=== PATIENT | female | born 1950 | race Caucasian/White ===

== ENCOUNTER 2022-01-31 08:32 | Inpatient (IN) ==
--- NOTE | 2022-01-31 08:57 | Emergency Department Note ---
Impression & Plan Acute dehydration, Breast cancer, Pancytopenia, Adult failure to thrive ED Provider Note NAME: CINTHYA PURCELL AGE: 71 SEX: F : 1950 ARRIVES VIA: Walk-In INFORMANT: Patient, ED PROVIDER(S): Jose J Villegas MD Chief Complaint: Weakness, history of breast cancer, hematology oncology referral HPI: Patient is known history of breast CA and was referred by Dr. Morgan with hematology oncology. The patient's last chemotherapy was on has not received any radiation. The patient is complaining of some generalized weakness pain and has not been eating as much. The patient has had associated diarrhea. There has been talk about whether the patient would benefit from PEG tube and possible port. Patient reportedly has been unable to care for self at home and daughter is also unable to do so. The patient has had some worsening weight loss even in light of her chemotherapy. The patient has had some chronic discomfort in her bilateral elbows and hips. No recent falls or trauma. The patient did try to take tramadol 25 and then 50 but without significant improvement in symptoms. Patient is a smoker does not smoke in several days. The patient denies any alcohol use. The patient reportedly has localized Bretta of left-sided breast cancer stage III. Patient has met with a surgeon to disc uss possible surgical options as well. Patient denies any current chest pains or shortness of breath. The patient denies any nausea vomiting. The patient does have a rash to the face which she states is only uncomfortable if the scab is removed and raw underneath. Patient has not received any shingles vaccination in the past. ROS: See HPI for pertinent positives and negatives. A total of 10 systems were reviewed and otherwise negative. Past medical history: See below Surgical history: See below Social history: See below Physical Exam: GENERAL: Thin in appearance, wearing a mask EYE EXAM: Normal conjunctiva. PERRL, no anisocoria and EOM's grossly intact w/o pain. OROPHARYNX: Moist mucus membranes. Grossly normal dentition. NECK: Supple, no nuchal rigidity, no adenopathy, non-tender. No signs of meningismus. LUNGS: Clear to auscultation. Normal chest wall mechanics. HEART: Tachycardic and regular, no MRG. ABDOMEN: Abdomen soft, non-tender, normo-active bowel sounds, no masses, no rebound or guarding. BACK: No CVA TTP. SKIN: Eschar rash over the bilateral forehead and nose, scant amount right upper chest as well as dorsal aspect of bilateral proximal thumb area nontender and not vesicular in nature. UPPER EXTREMITIES: Upper extremities are grossly normal. Mild discomfort of the bilateral elbows without obvious overlying skin changes or swelling, compartments are soft and neurovascular intact distally. LOWER EXTREMITIES: Grossly normal, no edema. No discomfort to bilateral hips, decreased mobility of right hip compared to left but no overlying skin changes obvious deformity and neurovascular intact distally NEURO EXAM: A&O x3, cranial nerves II-XII grossly intact, normal speech, moves all 4 extremities but decreased right lower extremity movement secondary to d iscomfort Differential diagnoses: Infection, dehydration, metabolic abnormality, hypo/hyperglycemia, electrolyte disturbance, anemia, hypoxia, cardiac sources, intracerebral event, toxicologic, neurologic, as well as other pathologies. Course: Patient was seen and evaluated the bedside. Full history physical exam was performed. EKG interpreted by me Normal sinus rhythm, rate of 92, normal intervals, normal axis, no ST elevations Imaging Studies: See Below Cardiac monitoring: An order was placed for continuous cardiac monitoring. The monitor shows a rate of 102 with tachycardic and regular rhythm. MDM: Patient was seen and was noted to be hypotensive and tachycardic. The patient was covered with empiric antibiotics. The patient does have a rash which may be a more diffuse impetigo and believe less likely to be vesicular or zoster but still is a possibility given that she is on chemotherapy and has not had a Shingrix vaccine. Patient states it is not painful. Patient's blood work shows mild pancytopenia. The patient does have significant prerenal azotemia and was given IV fluids. Pro-Gerhard slightly elevated 1.1 negative COVID. Chest x-ray is clear. Patient had refused some imaging of hips/pelvis as the patient had a recent PET scan on Saturday. I did speak the on-call hospitalist Dr. Grace and the patient was admitted to the medicine service. Past Med/Surg History Medical History (Updated 01/31/22 @ 12:18 by Jose J Villegas MD) Breast cancer Hypertension Social History Smoking Status: Current some day smoker Tobacco Type: Cigarettes Preferred Language: French Feels Safe at Home: Yes Allergies Allergies Allergy/AdvReac Type Severity Reaction Status Date / Time pistachio nut AdvReac Severe Red face Unverified 01/31/22 10:37 and hands ~ Throwing up Home Meds Home Medications Medication Instructions Recorded Confirmed diltiazem HCl 120 mg tablet 120 mg PO BID 01/31/22 01/31/22 lisinopril 20 1 tab PO QAM 01/31/22 01/31/22 mg-hydrochlorothiazide 25 mg tablet methylprednisolone 4 mg tablets in 4 mg PO .TAPER DOSE 01/31/22 01/31/22 a dose pack mirtazapine 15 mg tablet 15 mg PO QAM 01/31/22 01/31/22 ondansetron HCl 8 mg tablet 8 mg PO Q8H PRN 01/31/22 01/31/22 prochlorperazine maleate 10 mg 10 mg PO Q6H PRN 01/31/22 01/31/22 tablet tramadol 50 mg tablet 50 mg PO Q6H PRN 01/31/22 01/31/22 Results & Data (ED) Vital Signs Vital Signs - 24 hr 01/31/22 08:48 01/31/22 09:59 01/31/22 10:00 Temperature 36.3 C L Temperature Source Temporal Artery Scan Pulse Rate 104 H 93 H 93 H Pulse Rate from SpO2 Sensor 86 93 H Respiratory Rate 20 17 17 Respiratory Effort / Characteristics Non-Labored Respiratory Depth Normal Respiratory Pattern Regular Blood Pressure 76/55 L 110/78 Blood Pressure Mean 62 88 Pulse Oximetry 96 96 96 Oxygen Delivery Method Room Air Room Air Sepsis Recent Fever Within 48 Hours No Sepsis New/Unexplained Change in Mental Status No Sepsis Action Taken by Nursing Physician Notified 01/31/22 10:04 01/31/22 10:24 01/31/22 10:30 Temperature Temperature Source Pulse Rate 87 91 H Pulse Rate from SpO2 Sensor 87 91 H Respiratory Rate 18 20 22 Respiratory Effort / Characteristics Non-Labored Non-Labored Respiratory Depth Respiratory Pattern Blood Pressure 117/60 119/62 Blood Pressure Mean 79 81 Pulse Oximetry 98 95 Oxygen Delivery Method Room Air Room Air Sepsis Recent Fever Within 48 Hours Sepsis New/Unexplained Change in Mental Status Sepsis Action Taken by Nursing 01/31/22 10:45 01/31/22 11:00 01/31/22 11:15 Temperature Temperature Source Pulse Rate 87 86 87 Pulse Rate from SpO2 Sensor 87 86 87 Respiratory Rate 14 16 13 Respiratory Effort / Characteristics Non-Labored Respiratory Depth Respiratory Pattern Blood Pressure 113/58 L 115/67 114/66 Blood Pressure Mean 76 83 82 Pulse Oximetry 95 98 96 Oxygen Delivery Method Room Air Room Air Room Air Sepsis Recent Fever Within 48 Hours Sepsis New/Unexplained Change in Mental Status Sepsis Action Taken by Nursing 01/31/22 11:30 01/31/22 11:45 01/31/22 12:00 Temperature Temperature Source Pulse Rate 88 89 94 H Pulse Rate from SpO2 Sensor 88 89 94 H Respiratory Rate 19 15 19 Respiratory Effort / Characteristics Non-Labored Non-Labored Respiratory Depth Respiratory Pattern Blood Pressure 122/67 122/69 123/70 Blood Pressure Mean 85 86 87 Pulse Oximetry 96 97 97 Oxygen Delivery Method Room Air Room Air Room Air Sepsis Recent Fever Within 48 Hours Sepsis New/Unexplained Change in Mental Status Sepsis Action Taken by [facility] Medications Current Medication List: was personally reviewed by me Laboratory Data Attestation: I reviewed the patient's lab results. Result diagrams: 01/31/22 09:40 01/31/22 09:40 Lab Results 01/31/22 01/31/22 01/31/22 Range/Units 09:40 09:40 09:40 WBC 3.55 L (4.8-10.8) K/uL RBC 3.21 L (4.2-5.4) M/uL Hgb 10.2 L (12.0-16.0) g/dL Hct 30.6 L (37-47) % MCV 95.3 (80-100) fL MCH 31.8 (25-34) pg MCHC 33.3 (32-36) g/dL RDW Std Deviation 43.3 (36.4-46.3) fL RDW Coeff of Emil 12.4 (11.5-14.5) % Plt Count 123 L (130-400) K/uL MPV 13.1 H (7.4-10.4) fL Neutrophils % (Manual) 67.8 % Lymphocytes % (Manual) 12.2 % Monocytes % (Manual) 17.4 % Eosinophils % (Manual) 1.7 % Basophils % (Manual) 0.9 % Neutrophils # (Manual) 2.41 (1.4-6.5) K/uL Total Absolute Neuts 2.41 (1.4-6.5) K/uL Lymphocytes # (Manual) 0.43 L (1.2-3.4) K/uL Total Abs Lymphocytes 0.43 L (1.2-3.4) K/uL Monocytes # (Manual) 0.62 H (0.11-0.59) K/uL Eosinophils # (Manual) 0.06 (0-0.5) K/uL Basophils # (Manual) 0.03 (0-0.2) K/uL Platelet Estimate Normal (Normal) PT 9.8 (9.0-12.0) Seconds INR 0.9 (0.9-1.1) APTT 23.9 (21.0-31.0) Seconds PTT Ratio 0.9 Sodium 132 L (136-145) mmol/L Potassium 3.9 (3.5-5.1) mmol/L Chloride 98 (98-107) mmol/L Carbon Dioxide 26 (21-32) mmol/L Anion Gap 8 (3-11) BUN 67 H (6-23) mg/dl Creatinine 1.35 H (0.6-1.2) mg/dl Est Cr Clr Drug Dosing 22.7 ml/min Est GFR ( Amer) 45.0 ml/min Est GFR (Non-Af Amer) 38.9 ml/min BUN/Creatinine Ratio 49.6 H (10-20) Glucose 93 (70-99(Fasting)) mg/dl Lactate (0.4-2.0) mmol/L Calcium 8.7 (8.5-10.1) mg/dl Magnesium 2.0 (1.7-2.4) mg/dl Total Bilirubin 0.5 (0.2-1.0) mg/dl AST 114 H (13-39) U/L ALT 32 (7-52) U/L Alkaline Phosphatase 68 (34-104) U/L Total Protein 6.6 (6.0-8.3) gm/dl Albumin 3.1 L (3.4-5.0) gm/dl Globulin 3.5 (2.5-4.0) gm/dl Albumin/Globulin Ratio 0.9 (0.9-2) Procalcitonin (0-0.5) ng/ml SARS-CoV-2, RNA, NAAT (NEGATIVE) 05/11/22 05/11/22 05/11/22 Range/Units 09:40 10:20 10:21 WBC (4.8-10.8) K/uL RBC (4.2-5.4) M/uL Hgb (12.0-16.0) g/dL Hct (37-47) % MCV (80-100) fL MCH (25-34) pg MCHC (32-36) g/dL RDW Std Deviation (36.4-46.3) fL RDW Coeff of Emil (11.5-14.5) % Plt Count (130-400) K/uL MPV (7.4-10.4) fL Neutrophils % (Manual) % Lymphocytes % (Manual) % Monocytes % (Manual) % Eosinophils % (Manual) % Basophils % (Manual) % Neutrophils # (Manual) (1.4-6.5) K/uL Total Absolute Neuts (1.4-6.5) K/uL Lymphocytes # (Manual) (1.2-3.4) K/uL Total Abs Lymphocytes (1.2-3.4) K/uL Monocytes # (Manual) (0.11-0.59) K/uL Eosinophils # (Manual) (0-0.5) K/uL Basophils # (Manual) (0-0.2) K/uL Platelet Estimate (Normal) PT (9.0-12.0) Seconds INR (0.9-1.1) APTT (21.0-31.0) Seconds PTT Ratio Sodium (136-145) mmol/L Potassium (3.5-5.1) mmol/L Chloride (98-107) mmol/L Carbon Dioxide (21-32) mmol/L Anion Gap (3-11) BUN (6-23) mg/dl Creatinine (0.6-1.2) mg/dl Est Cr Clr Drug Dosing ml/min Est GFR ( Amer) ml/min Est GFR (Non-Af Amer) ml/min BUN/Creatinine Ratio (10-20) Glucose (70-99(Fasting)) mg/dl Lactate 1.5 (0.4-2.0) mmol/L Calcium (8.5-10.1) mg/dl Magnesium (1.7-2.4) mg/dl Total Bilirubin (0.2-1.0) mg/dl AST (13-39) U/L ALT (7-52) U/L Alkaline Phosphatase (34-104) U/L Total Protein (6.0-8.3) gm/dl Albumin (3.4-5.0) gm/dl Globulin (2.5-4.0) gm/dl Albumin/Globulin Ratio (0.9-2) Procalcitonin 1.10 H (0-0.5) ng/ml SARS-CoV-2, RNA, NAAT NEGATIVE (NEGATIVE) Administered Medications Discontinued Medications Sodium Chloride (Nss 1000ml) 1,000 mls @ 999 mls/hr IV .Q1H1M KULWANT Stop: 01/31/22 10:05 Last Infusion: 01/31/22 11:06 Dose: 0 mls/hr Documented by: [id number] Admin: 01/31/22 09:55 Dose: 999 mls/hr Documented by: [id number] Sodium Chloride (Nss 1000ml) 1,000 mls @ 999 mls/hr IV .Q1H1M KULWANT Stop: 01/31/22 11:15 Last Infusion: 01/31/22 11:05 Dose: 0 mls/hr Documented by: [id number] Admin: 01/31/22 10:19 Dose: 999 mls/hr Documented by: [id number] Cefepime HCl (Maxipime) 2,000 mg in 20 mls @ 5 mls/min IV NOW STA; Protocol Stop: 01/31/22 09:08 Last Admin: 01/31/22 09:56 Dose: 5 mls/min Documented by: [id number] Miscellaneous (Patient's Height And/Or Weight Needed) 1 ea N/A Q20M KULWANT Stop: 03/02/22 09:29 Last Admin: 01/31/22 10:18 Dose: 1 ea Documented by: [id number] Morphine Sulfate (Morphine Sulfate 2 Mg/Ml Carp) 2 mg IV NOW STA Stop: 01/31/22 09:24 Last Admin: 01/31/22 09:52 Dose: 2 mg Documented by: [id number] Imaging Data Radiologist's Impression: Chest X-Ray 01/31/22 09:05 XR chest 1V portable CLINICAL HISTORY: SEPSIS TECHNIQUE: Single frontal radiograph of the chest was obtained. Comparison: None available at the time of this dictation. FINDINGS: No lines and tubes are seen. The cardiomediastinal silhouette is normal. The lungs are clear. No evidence of pleural effusion or pneumothorax. IMPRESSION: No acute chest disease. ACT 112: Negative or not required by law. Electronically signed by: Benoit Fry M.D. 01/31/2022 9:50 AM Discharge Plan Visit Data Chief Complaint: Illness Stated Complaint: UNDERGOING CHEMO/AND ACHES ALL OVER ED Provider: Jose J Villegas Discharge Problem: Acute dehydration, Breast cancer, Pancytopenia, Adult failure to thrive Patient Disposition: Admitted As Inpatient Forms Stand Alone Forms: [facility] Prescriptions Prescriptions: No Action ondansetron HCl 8 mg tablet 8 mg PO Q8H PRN (Reason: Nausea) RF: 0 prochlorperazine maleate 10 mg tablet 10 mg PO Q6H PRN (Reason: Nausea) RF: 0 tramadol 50 mg tablet 50 mg PO Q6H PRN (Reason: Pain) RF: 0 diltiazem HCl 120 mg tablet 120 mg PO BID RF: 0 lisinopril-hydrochlorothiazide 20-25 mg tablet 1 tab PO QAM RF: 0 mirtazapine 15 mg tablet 15 mg PO QAM RF: 0 methylprednisolone 4 mg tablets,dose pack 4 mg PO .TAPER DOSE RF: 0 Referrals Referrals: Laurel Dougherty MD [Physician] -
[2022-01-31] MEDS ORDERED: CEFEPIME 2,000 MG/20 ML VIAL IV STA (09:05)
[2022-01-31] MEDS ORDERED: SODIUM CHLORIDE 0.9% 1000ML 1,000 ML IV SCH ×2 (09:15→10:15)
[2022-01-31] MEDS ORDERED: MoRPHine SULFATE 2 MG/ML CARP IV STA (09:23)
--- NOTE | 2022-01-31 09:51 | XRay Report ---
XR chest 1V portable CLINICAL HISTORY: SEPSIS TECHNIQUE: Single frontal radiograph of the chest was obtained. Comparison: None available at the time of this dictation. FINDINGS: No lines and tubes are seen. The cardiomediastinal silhouette is normal. The lungs are clear. No evid ence of pleural effusion or pneumothorax. IMPRESSION: No acute chest disease. ACT 112: Negative or not required by law. Electronically signed by: Benoit Fry M.D. 01/31/2022 9:50 AM
[2022-01-31 10:12] LABS: INR 0.9 (0.9-1.1); Partial Thromboplastin Ratio 0.9; Partial Thromboplastin Time 23.9 Seconds (21.0-31.0); Prothrombin Time 9.8 Seconds (9.0-12.0)
[2022-01-31] MEDS: Patient's HEIGHT &/or WEIGHT Needed SCH ×3 (10:18→15:28)
[2022-01-31 10:22] LABS: Albumin Globulin Ratio 0.9 (0.9-2); Albumin Level 3.1 gm/dl (3.4-5.0); BUN Creatinine Ratio 49.6 (10-20); Bilirubin,Total 0.5 mg/dl (0.2-1.0); Calcium 8.7 mg/dl (8.5-10.1); Creatinine Clr Calc Pharmacy 22.7 ml/min; Est GFR (Non-African American) 38.9 ml/min; Globulin 3.5 gm/dl (2.5-4.0); Potassium 3.9 mmol/L (3.5-5.1); Total Protein 6.6 gm/dl (6.0-8.3)
[2022-01-31 10:55] LABS: ALC (manual) 0.43 K/uL (1.2-3.4); ANC (manual) 2.41 K/uL (1.4-6.5); Basophils # (manual) 0.03 K/uL (0-0.2); Basophils % (manual) 0.9 %; Eosinophils # (manual) 0.06 K/uL (0-0.5); Eosinophils % (manual) 1.7 %; Hematocrit (blood only) 30.6 % (37-47); Hemoglobin 10.2 g/dL (12.0-16.0); Lymphocytes # (manual) 0.43 K/uL (1.2-3.4); Lymphocytes % (manual) 12.2 %; Mean Corpuscular Hemoglobin 31.8 pg (25-34); Mean Corpuscular Hgb Conc 33.3 g/dL (32-36); Mean Corpuscular Volume 95.3 fL (80-100); Mean Platelet Volume 13.1 fL (7.4-10.4); Monocytes # (manual) 0.62 K/uL (0.11-0.59); Monocytes % (manual) 17.4 %; Neutrophils # (manual) 2.41 K/uL (1.4-6.5); Neutrophils % (manual) 67.8 %; Platelet Count 123 K/uL (130-400); Platelet Estimate Normal (Normal); RDW Coefficient of Variation 12.4 % (11.5-14.5); RDW Standard Deviation 43.3 fL (36.4-46.3); Red Blood Count 3.21 M/uL (4.2-5.4); White Blood Count 3.55 K/uL (4.8-10.8)
--- NOTE | 2022-01-31 11:50 | History & Physical Report ---
Date of Service January 31, 2022 Assessment & Plan (1) UGI bleed: Plan: - Suspected. BUN increased to 67, was 50 on 01/24. With reports of black, tarry stools over the past few days. Hgb 10.2, was 11.6 on 01/24. - FOB ordered, if positive will start on IV Protonix and consult GI. - Trend H&H. - Will hold methylprednisolone. (2) Adult failure to thrive: Plan: - Global weakness, fatigue, loss of appetite, suspect this is due to cancer, recent chemotherapy. - No obvious source of infection, however procalcitonin 1.10, she was mildly tachycardic on presentation. Was given a dose of cefepime in ED. Blood cultures sent, urinalysis ordered, not yet collected. - Has discussed with oncology the potential for a PEG placement, will consult GI for this. Also consulting general surgery for port placement, as patient was supposed to have a consult for this yesterday. - Continue IVF. - Dietitian consulted, appreciate their recommendations. (3) Facial rash: Plan: - Developed several days after first chemotherapy treatment. Involves bilateral forehead, nasolabial folds, around mouth. Is not pruritic, purulent, or painful. Some areas are consistent with impetigo. Not causing any ocular or auditory issues. No purulent drainage. Lesions are already crusted over after rash been present for 3 days which makes it less suspicious for herpetic etiology, however patient has not had Shingrix vaccine. Consider covering prophylactically with acyclovir? - Consulted Dr. Morgan with oncology for evaluation. (4) Elevated AST (SGOT): Plan: - AST 114, trending up since 01/11. ALT within normal limits, but also trending up since 01/11. T bili 0.5, alk phos 68. - Patient is not having any abdominal pain. PET scan did not show any metastatic disease to liver. - For now, continue to follow on a.m. CMP. (5) Hyponatremia: Plan: - 132, chronic since 01/11 - Suspect may be due to decreased po intake, diarrhea vs SIADH induced by cancer, chemotherapy. - Received 2L IVF in ED. Will continue to receive LRs @ 80 cc/hr. - Continue to follow on BMP in AM. (6) Pancytopenia: Plan: - In setting of chemo on 01/25, labs normocytic prior to. Reportedly received Neulasta following chemo. - Continue to follow on daily CBC. (7) Breast cancer: Plan: - Diagnosed on diagnostic mammogram 1 month ago. - Chemo regimen: Docetaxel, carboplatin, trastuzumab, pertuzumab [id number] x6 cycles possibly followed up with surgery. - First chemo was 01/25 - PET/brain MRI for full staging on 01/24, revealed 2 left breast masses, axiliary and L internal mammary lymph node involvement, no metastatic dz to abdomen or pelvis, 6 mm ground glass RLL nodule indeterminant, not suspected to be met dz. Marinol for appetite stimulation - Echo 01/24--> EF 60-65%, small pericardial effusion - Dr. Morgan consulted as above. - Also consult general surgery as patient was to have consult for port placement this week. (8) Hypertension: Plan: - On diltiazem and lisinopril/HCTZ, will hold these for today due to hypovo lemia, hyponatremia. - Continue to monitor BP. (9) CKD (chronic kidney disease) stage 3, GFR 30-59 ml/min: Plan: - BUN 67 increased from presumed baseline on 01/11 with creatinine 1.35, at presumed baseline (no other labs for comparison). - Renally dose medications as able, avoid nephrotoxic agents. - Follow on daily BMP. Plan: - Admit to med/surg. - SCDs for DVT ppx, hold on chemoppx until GI bleed is ruled out. - DNR/DNI. History of Present Illness Chief Complaint: increasing weakness x 5 days Primary Care Provider: NO PCP Ms. Benson is a 71 y/o female with a PMH significant for stage III left sided breast cancer diagnosed 1 month ago and HTN who presents upon referral of her oncologist due to generalized weakness. Patient received her first chemotherapy treatment this past , 01/25 as well as Neulasta. In the days preceding this, she became increasingly weak, achy all over, facial rash, and developed diarrhea. Prior to starting chemo, she has had generalized body aches, primarily in her bilateral elbows and hips, however they have become worse in the days after her chemo. She has not had any recent falls or injuries. The rash and diarrhea started 3 days ago, 01/28. The rash started around her nose and lips bilaterally and has spread to her forehead. It is not itchy or painful. No visual changes or eye pain, no hearing changes. She describes her diarrhea it as tarry, occurring 5 times/day. She does not notice any pedro red blood in it and her BMs are not painful. She also endorses decreased appetite despite beign prescribed marinol for this. She is occasionally nauseous. She denies fever/chills, night sweats, chest pain, palpitations, shortness of breath, cough, abdominal pain, vomiting constipation, hematochezia, dysuria, hematuria, increased urinary frequency. She was supposed to have a consult this morning with Dr. Fox for port placement, however daughter canceled this yesterday as patient has been too weak to leave the house. Per daughter, there has also been conversations with oncology about potential PEG placement. In ED, VSS, wnl. Labs significant for pancytopenia ( WBC 3.55, RBC 3.21, PLT 123 ), Hgb 1.2, Na 132, BUN 67, Cr 1.32, AST 114. Lactate 1.5, pct 1.10. Blood cultures pending. CXR without evidence of acute disease. UA ordered, not yet collected. Allergies Allergy/AdvReac Type Severity Reaction Status Date / Time pistachio nut AdvReac Severe Red face Unverified 01/31/22 10:37 and hands ~ Throwing up Home Medications Medication Instructions Recorded Confirmed Type diltiazem HCl 120 mg tablet 120 mg PO BID 01/31/22 01/31/22 History lisinopril 20 1 tab PO QAM 01/31/22 01/31/22 History mg-hydrochlorothiazide 25 mg tablet methylprednisolone 4 mg tablets in 4 mg PO .TAPER DOSE 01/31/22 01/31/22 History a dose pack mirtazapine 15 mg tablet 15 mg PO QAM 01/31/22 01/31/22 History ondansetron HCl 8 mg tablet 8 mg PO Q8H PRN 01/31/22 01/31/22 History prochlorperazine maleate 10 mg 10 mg PO Q6H PRN 01/31/22 01/31/22 History tablet tramadol 50 mg tablet 50 mg PO Q6H PRN 01/31/22 01/31/22 History Past Med/Surg History Medical History Breast cancer Hypertension Social History Smoking Status: Current some day smoker Tobacco Type: Cigarettes Hx Alcohol Use: Yes Alcohol type: hard liquor Hx Substance Use: No Preferred Language: [place] Communication Ability: Effective 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 Beliefs That Will Affect Care: None Current Living Situation: Family Other Information That Helps Us Care for You: No Feels Safe at Home: Yes Assistive Devices: None and Denture - Upper Review of Systems Review of Systems: Constitutional: Increased weakness, myalgias, anorexia, fatigue over past 5 days; No fever/chills, night sweats Eyes: No diplopia, no worsening or blurred vision ENT: normal hearing, no trouble swallowing Respiratory: No cough, sputum, dyspnea at rest or on exertion Cardiovascular: No chest pain, tightness or palpitations Abdomen: Some nausea x 5 days, tarry diarrhea x 3 days; No pain, vomiting, constipation : Denies dysuria, hematuria, increased urgency/frequency, urinary retention Musculoskeletal: Overall body aches, worst at b/l elbows, hips; No calf pain, swelling Neurologic: No focal weakness, numbness/tingling, or balance problems Psychiatric: No anxiety or depression Skin: b/l facial rash x 3 days; no itch Physical Exam Physical Exam: General: awake, alert, no apparent distress, appears frail, cachectic. Head: Normocephalic, atraumatic ENT: PERRL, EOMI, no pharyngeal exudate, mucous membranes moist Chest: Clear to auscultation, on room air, no adventitious breath sounds Cardiac: Regular rate and rhythm, no murmur, no JVD, normal peripheral pulses, good capillary refill Abdominal: NABS x 4 quadrants, soft, nontender to palpation, no rebound, guarding or tenderness Extremities: Normal inspection, no peripheral edema or erythema, calfs nontender to palpation Psych: Normal mood and affect Neuro: AAO x 3, strength intact bilaterally and rated 5/5, no motor deficits, speech is clear, no peripheral sensory deficits Skin: erythematous, scaly, no pruritic rash with some scabbing on b/l forehead, b/l nasolabial folds and around mouth Results & Data Results & Data ([facility]) Vital Signs (Past 12 Hours) Vital Signs Temp Pulse Resp BP Pulse Ox 01/31/22 11:00 86 16 115/67 98 01/31/22 10:45 87 14 113/58 L 95 01/31/22 10:30 91 H 22 119/62 95 01/31/22 10:24 87 20 117/60 98 01/31/22 10:04 18 01/31/22 10:00 93 H 17 110/78 96 01/31/22 09:59 93 H 17 96 01/31/22 08:48 36.3 C L 104 H 20 76/55 L 96 Laboratory Results Abnormal lab results 01/31/22 01/31/22 01/31/22 Range/Units 09:40 09:40 10:20 WBC 3.55 L (4.8-10.8) K/uL RBC 3.21 L (4.2-5.4) M/uL Hgb 10.2 L (12.0-16.0) g/dL Hct 30.6 L (37-47) % Plt Count 123 L (130-400) K/uL MPV 13.1 H (7.4-10.4) fL Lymphocytes # (Manual) 0.43 L (1.2-3.4) K/uL Total Abs Lymphocytes 0.43 L (1.2-3.4) K/uL Monocytes # (Manual) 0.62 H (0.11-0.59) K/uL Sodium 132 L (136-145) mmol/L BUN 67 H (6-23) mg/dl Creatinine 1.35 H (0.6-1.2) mg/dl BUN/Creatinine Ratio 49.6 H (10-20) AST 114 H (13-39) U/L Albumin 3.1 L (3.4-5.0) gm/dl Procalcitonin 1.10 H (0-0.5) ng/ml Diagnostic Findings Chest X-Ray 01/31/22 09:05 XR chest 1V portable CLINICAL HISTORY: SEPSIS TECHNIQUE: Single frontal radiograph of the chest was obtained. Comparison: None available at the time of this dictation. FINDINGS: No lines and tubes are seen. The cardiomediastinal silhouette is normal. The lungs are clear. No evidence of pleural effusion or pneumothorax. IMPRESSION: No acute chest disease. ACT 112: Negative or not required by law. Electronically signed by: Benoit Fry M.D. 01/31/2022 9:50 AM ECG Additional Comments: Normal sinus rhythm Possible Left atrial enlargement Low voltage QRS Cannot rule out Anteroseptal infarct , age undetermined Abnormal ECG When compared with ECG of 13-MAY-2000 14:03, Questionable change in QRS duration Minimal criteria for Anteroseptal infarct are now Present. Code Status & VTE Plan Code Status DNR/DNI. Supervising Physician Co-Signing Physician Notes Patient seen and examined, chart reviewed, case discussed with Sis Layne and I agree with the assessment and plan as above except as otherwise noted above. General: A&Ox3. Cooperative. Frail. HEENT: Atraumatic, normocephalic. PERLAA, EoM intact. Vision/hearing grossly intact Pulm: CTAB A&P. -wheezes, -rales, -rhonchi. Symmetrical chest rise. No increase work of breathing. No respiratory distress. Cardiac: RRR, -mrg. Radial pulses intact and symmetrical. Abdominal: Nontender, nondistended, soft. BS present. Skin: Diffuse, nonpruritic, nontender eschar on RIGHT akash, bilateral NLF, perioral space with minimal erythema and no vesicles. All labs and images reviewed 71-year-old female undergoing chemotherapy who presents with generalized weakness. Had first chemo 6 days ago. Sodium 132, potassium normal, creatinine at baseline, lactate normal, BSG normal. Has developed a facial rash for 3 days which did not occur with vesicles, which is not tender or pruritic. Does not follow single dermatome and is crusted without vesicles, will defer acyclovir at this time. No yellow crust, appears to be improving ?Chemo reaction versus superficial infection, Pro-Gerhard is elevated in the setting of renal dysfunction. +cephlex. Pt does feel globally wiped out/fatigued. Hemoglobin down trended with report of tarry melena, positive FOBT and acutely elevated BUN, PPI started, H&H trended, GI consulted as above. PG Care Time/CCT Total # of Minutes Spent Total Time Spent with Patient: Total time spent is greater than 50% in coordination of care (as documented) at patient's floor/unit and/or counseling patient: Coding Level of Care Code 69347 Initial Inpt Care Lvl 3 Diagnoses Hypertension I10 Hypertension type: primary hypertension Pancytopenia D61.818 Hyponatremia E87.1 Breast cancer C50.919 Patient sex: female CKD (chronic kidney disease) stage 3, GFR 30-59 ml/min N18.30 Facial rash R21 Elevated AST (SGOT) R74.01 UGI bleed K92.2 Adult failure to thrive R62.7 (1) Breast cancer Patient sex: female (2) Hypertension Hypertension type: primary hypertension Qualified Code(s): I10 - Essential (primary) hypertension
[2022-01-31] MEDS ORDERED: ONDANSETRON INJ 2 MG/ML 2 ML VIAL ONE (12:20)
[2022-01-31] MEDS ORDERED: PROCHLORPERAZINE MALEATE 10 MG TAB PO PRN (14:35)
[2022-01-31] MEDS ORDERED: ACETAMINOPHEN 325 MG TAB PO PRN (14:35)
[2022-01-31] MEDS ORDERED: HYDROmorphone INJ 0.5 MG/0.5 ML SYR IV PRN (14:35)
[2022-01-31] MEDS ORDERED: traMADol HCL 50 MG TABLET PO PRN (14:35)
[2022-01-31] MEDS ORDERED: PROMETHAZINE HCL 12.5 MG in SODIUM CHLORIDE 0.9% 50 ML IV PRN (14:35)
[2022-01-31] MEDS ORDERED: NON-FORMULARY MEDICATION (Ondansetron Hcl 8 mg tablet) PO PRN (14:35)
[2022-01-31] MEDS ORDERED: ONDANSETRON INJ 2 MG/ML 2 ML VIAL IV PRN (14:35)
[2022-01-31] MEDS ORDERED: POLYETHYLENE (MIRALAX) 17 GM PACK PO PRN (14:35)
--- NOTE | 2022-01-31 15:06 | Surgery Consultation ---
Date of Consultation January 31, 2022 Assessment & Plan (1) Breast cancer: (2) Pancytopenia: (3) UGI bleed: suspected due to history of dark/black stools however Hemoccult testing has not been completed yet Hemoglobin 11.3 prior to chemo, 10.2 today (4) Adult failure to thrive: 71 year-old female with stage III left breast cancer who presented to ED with increasing weakness, diarrhea, and rash on face after initiation of first round of chemotherapy on 01/25/22. Found to be pancytopenic in ED with suspicion for UGI bleed due to dark/black stools however Hemoccult pending. Blood cultures pending. Plan: Will need to ensure no active GI bleeding and negative blood cultures prior to insertion of aport catheter. Given the significant failure to thrive, she may benefit from placement of PEG tube for nutritional support first. Will consult gastroenterology for this. She also has generalized pain that has not been addressed or managed. Believe she would benefit from pain management consultation to help get her pain better controlled so that she is able to stay active and possibly increase her nutritional intake. Oncology consulted, there likely will need to be a discussion with patient if she would tolerate another round of chemotherapy. Will tentatively add her to OR schedule for Saturday morning for port placement once the above testing is completed and blood cultures negative. would recommend adding BOOST BID will continue to follow Dr. Nur has seen patient and discussed above with patient and her daughter. Supervising Physician Co-Signing Physician Notes I have seen and examined the patient personally, and agree with the above assessment and plan as well as physical exam. In brief, she has locally advanced left breast cancer who presented with failure to thrive following her first chemotherapy treatment. She was admitted for PEG tube placement and access port placement. There is question as to whether she has an upper GI bleed due to dark tarry stools/melena. We would recommend gastroenterology consult for upper endoscopy and possible PEG tube placement. I had a discussion with him concerning an access port placement. The access port placement could potentially be done during this hospitalization, depending on what is found during the GI evaluation. We will plan for the access port placement sometime early next week. We will continue to follow. History of Present Illness Reason for Consultation: aport placement Requesting Physician: Sis Barrett PA-C Attending Physician: Refugio Grace MD History of Present Illness Hayley is a 71 year-old female with stage III left breast cancer metastatic to left axillary lymph nodes who started first round of chemotherpy last 01/25/22 who presented to emergency department due to increasing weakness, rash on face, and diarrhea. She was found to be pancytopenic in the emergency department with elevated procalcitonin and dark/maroon stools. Hemoglobin 10.2 (11.3 prior to chemotherapy) She was supposed to see Dr. Fox this week for consult for port placement for chemotherapy and there was also discussion for PEG tube placement by Oncology. Our services consulted for aport placement. Blood cultures are pending. Daughter present in room and gives most of history. Hayley was very tired (Given 2 mg of Morphine in ED) and resting in bed. Daughter states that she contacted Dr. Morgan last evening and she recommending bringing her mother to the ED due to the severe weakness and malnutrition for further management as well as possible PEG tube and port placement. Daughter states that she has noticed dark black stools but says this is possible side effect of chemo and only started this Saturday. States she has constant pain and she mostly sleeps and rests and is not eating very well and very malnourished and weak. She is concerned she will not be able to get her mother into office for outpatient consult for port placement prior to her next chemotherapy treatment. States her mother wants to fight this and wants to do everything possible. Allergies Allergy/AdvReac Type Severity Reaction Status Date / Time pistachio nut AdvReac Severe Red face Unverified 01/31/22 10:37 and hands ~ Throwing up Home Medications Medication Instructions Recorded Confirmed Type diltiazem HCl 120 mg tablet 120 mg PO BID 01/31/22 01/31/22 History lisinopril 20 1 tab PO QAM 01/31/22 01/31/22 History mg-hydrochlorothiazide 25 mg tablet methylprednisolone 4 mg tablets in 4 mg PO .TAPER DOSE 01/31/22 01/31/22 History a dose pack mirtazapine 15 mg tablet 15 mg PO QAM 01/31/22 01/31/22 History ondansetron HCl 8 mg tablet 8 mg PO Q8H PRN 01/31/22 01/31/22 History prochlorperazine maleate 10 mg 10 mg PO Q6H PRN 01/31/22 01/31/22 History tablet tramadol 50 mg tablet 50 mg PO Q6H PRN 01/31/22 01/31/22 History Patient History Medical History Breast cancer Hypertension Social History Smoking Status: Current some day smoker Tobacco Type: Cigarettes Hx Alcohol Use: Yes Alcohol type: hard liquor Hx Substance Use: No Preferred Language: Citizen Of [place] Communication Ability: Effective 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 Beliefs That Will Affect Care: None marital status: / Current Living Situation: Family How many Children do You have: 1 Other Information That Helps Us Care for You: No Feels Safe at Home: Yes Assistive Devices: Assistive Devices Comment: shower bench Physical Exam Constitutional: + thin, + cachectic, + frail appearing, cooperative and + lethargic; no acute distress and not in distress Neck: normal visual inspection and trachea midline Respiratory: normal respiratory effort; no respiratory distress and no labored breathing Skin: + rash (of the face ) Psychiatric: Orientation: alert and oriented x 3 Affect: + depressed affect Results & Data ([facility]) Vital Signs (Past 12 Hours) Vital Signs Temp Pulse Pulse Resp BP BP Pulse Ox 01/31/22 14:40 36.9 C 80 16 121/59 L 96 01/31/22 14:39 93 H 20 149/65 H 99 01/31/22 13:15 93 H 20 149/65 H 99 01/31/22 13:00 90 18 135/65 99 01/31/22 12:45 92 H 19 140/78 99 01/31/22 12:31 91 H 21 129/85 99 01/31/22 12:30 18 98 01/31/22 12:15 92 H 20 121/97 96 01/31/22 12:00 94 H 19 123/70 97 01/31/22 11:45 89 15 122/69 97 01/31/22 11:30 88 19 122/67 96 01/31/22 11:15 87 13 114/66 96 01/31/22 11:00 86 16 115/67 98 01/31/22 10:45 87 14 113/58 L 95 01/31/22 10:30 91 H 22 119/62 95 01/31/22 10:24 87 20 117/60 98 01/31/22 10:04 18 01/31/22 10:00 93 H 17 110/78 96 01/31/22 09:59 93 H 17 96 01/31/22 08:48 36.3 C L 104 H 20 76/55 L 96 Laboratory Results 01/31/22 01/31/22 01/31/22 Range/Units 10:21 10:20 09:40 WBC (4.8-10.8) K/uL RBC (4.2-5.4) M/uL Hgb (12.0-16.0) g/dL Hct (37-47) % MCV (80-100) fL MCH (25-34) pg MCHC (32-36) g/dL RDW Std Deviation (36.4-46.3) fL RDW Coeff of Emil (11.5-14.5) % Plt Count (130-400) K/uL MPV (7.4-10.4) fL Neutrophils % (Manual) % Lymphocytes % (Manual) % Monocytes % (Manual) % Eosinophils % (Manual) % Basophils % (Manual) % Neutrophils # (Manual) (1.4-6.5) K/uL Total Absolute Neuts (1.4-6.5) K/uL Lymphocytes # (Manual) (1.2-3.4) K/uL Total Abs Lymphocytes (1.2-3.4) K/uL Monocytes # (Manual) (0.11-0.59) K/uL Eosinophils # (Manual) (0-0.5) K/uL Basophils # (Manual) (0-0.2) K/uL Platelet Estimate (Normal) PT (9.0-12.0) Seconds INR (0.9-1.1) APTT (21.0-31.0) Seconds PTT Ratio Sodium (136-145) mmol/L Potassium (3.5-5.1) mmol/L Chloride (98-107) mmol/L Carbon Dioxide (21-32) mmol/L Anion Gap (3-11) BUN (6-23) mg/dl Creatinine (0.6-1.2) mg/dl Est Cr Clr Drug Dosing ml/min Est GFR ( Amer) ml/min Est GFR (Non-Af Amer) ml/min BUN/Creatinine Ratio (10-20) Glucose (70-99(Fasting)) mg/dl Lactate 1.5 (0.4-2.0) mmol/L Calcium (8.5-10.1) mg/dl Magnesium (1.7-2.4) mg/dl Total Bilirubin (0.2-1.0) mg/dl AST (13-39) U/L ALT (7-52) U/L Alkaline Phosphatase (34-104) U/L Total Protein (6.0-8.3) gm/dl Albumin (3.4-5.0) gm/dl Globulin (2.5-4.0) gm/dl Albumin/Globulin Ratio (0.9-2) Procalcitonin 1.10 H (0-0.5) ng/ml SARS-CoV-2, RNA, NAAT NEGATIVE (NEGATIVE) 01/31/22 01/31/22 01/31/22 Range/Units 09:40 09:40 09:40 WBC 3.55 L (4.8-10.8) K/uL RBC 3.21 L (4.2-5.4) M/uL Hgb 10.2 L (12.0-16.0) g/dL Hct 30.6 L (37-47) % MCV 95.3 (80-100) fL MCH 31.8 (25-34) pg MCHC 33.3 (32-36) g/dL RDW Std Deviation 43.3 (36.4-46.3) fL RDW Coeff of Emil 12.4 (11.5-14.5) % Plt Count 123 L (130-400) K/uL MPV 13.1 H (7.4-10.4) fL Neutrophils % (Manual) 67.8 % Lymphocytes % (Manual) 12.2 % Monocytes % (Manual) 17.4 % Eosinophils % (Manual) 1.7 % Basophils % (Manual) 0.9 % Neutrophils # (Manual) 2.41 (1.4-6.5) K/uL Total Absolute Neuts 2.41 (1.4-6.5) K/uL Lymphocytes # (Manual) 0.43 L (1.2-3.4) K/uL Total Abs Lymphocytes 0.43 L (1.2-3.4) K/uL Monocytes # (Manual) 0.62 H (0.11-0.59) K/uL Eosinophils # (Manual) 0.06 (0-0.5) K/uL Basophils # (Manual) 0.03 (0-0.2) K/uL Platelet Estimate Normal (Normal) PT 9.8 (9.0-12.0) Seconds INR 0.9 (0.9-1.1) APTT 23.9 (21.0-31.0) Seconds PTT Ratio 0.9 Sodium 132 L (136-145) mmol/L Potassium 3.9 (3.5-5.1) mmol/L Chloride 98 (98-107) mmol/L Carbon Dioxide 26 (21-32) mmol/L Anion Gap 8 (3-11) BUN 67 H (6-23) mg/dl Creatinine 1.35 H (0.6-1.2) mg/dl Est Cr Clr Drug Dosing 22.7 ml/min Est GFR ( Amer) 45.0 ml/min Est GFR (Non-Af Amer) 38.9 ml/min BUN/Creatinine Ratio 49.6 H (10-20) Glucose 93 (70-99(Fasting)) mg/dl Lactate (0.4-2.0) mmol/L Calcium 8.7 (8.5-10.1) mg/dl Magnesium 2.0 (1.7-2.4) mg/dl Total Bilirubin 0.5 (0.2-1.0) mg/dl AST 114 H (13-39) U/L ALT 32 (7-52) U/L Alkaline Phosphatase 68 (34-104) U/L Total Protein 6.6 (6.0-8.3) gm/dl Albumin 3.1 L (3.4-5.0) gm/dl Globulin 3.5 (2.5-4.0) gm/dl Albumin/Globulin Ratio 0.9 (0.9-2) Procalcitonin (0-0.5) ng/ml SARS-CoV-2, RNA, NAAT (NEGATIVE) (1) Breast cancer Breast location: unspecified site of breast Estrogen receptor status: unspecified Laterality: left Patient sex: female Qualified Code(s): C50.912 - Malignant neoplasm of unspecified site of left female breast
[2022-01-31 15:20] LABS: Hematocrit (blood only) 30.8 % (37-47); Hemoglobin 10.3 g/dL (12.0-16.0)
[2022-01-31] MEDS: D5W AND LACTATED RINGERS 1,000 ML IV SCH (15:42)
[2022-01-31 18:20] LABS: Appearance Urine Clear (Clear); Bacteria Urine Automated Negative (Negative); Bilirubin Urine Negative (Negative); Blood Urine Trace (Negative); Color Urine Yellow; Glucose Urine UA Negative (Negative); Ketones Urine Negative (Negative); Leukocyte Esterase Urine Negative (Negative); Nitrite Urine Positive (Negative); Protein Urine Trace (Negative); RBC Urine Automated 0-4 /hpf (0-4); Specific Gravity Urine 1.012 (1.000-1.030); Urobilinogen Urine Negative (Negative); pH Urine 5.5 (4.5-7.5)
[2022-01-31] MEDS: dilTIAZem HCl 60 MG TAB PO SCH (20:10)
[2022-01-31] MEDS: PANTOprazole 40 MG in SYRINGE 0 ML IV SCH (20:10)
[2022-01-31 21:51] LABS: Hematocrit (blood only) 25.7 % (37-47); Hemoglobin 8.7 g/dL (12.0-16.0)
--- NOTE | 2022-02-01 02:53 | Consultation Report ---
DATE OF SERVICE: 01/31/2022. REASON FOR CONSULTATION: New rash with chemotherapy. HISTORY OF PRESENT ILLNESS: Ms. Benson is a 71-year-old patient who is known to me at [facility] with stage III, ER/WI negative, HER-2 positive left breast cancer, for which she recently started neoadjuvant systemic therapy with carboplatin, docetaxel, trastuzumab, and pertuzumab on 01/25/2022. Patient's daughter was concerned about her decreasing appetite, continued weight loss, cachexia, generalized body pain and weakness for which I recommended evaluation in the ER. On presentation to the ER, the patient was noted to have pancytopenia with white cell count of 3.55, hemoglobin of 10.2, and platelet count of 123,000. She also complained of dark, tarry stools for which stool occult blood testing is pending. During my evaluation of patient today, she endorses generalized weakness, bone pain, and rash. Denies chest pain, shortness of breath, abdominal pain, nausea, vomiting, or any other issues. PAST MEDICAL HISTORY: Breast cancer. PAST SURGICAL HISTORY: None. SOCIAL HISTORY: Endorses cigarette smoking and alcohol use. Denies illicit drug use. FAMILY HISTORY: Negative for malignancy. REVIEW OF SYSTEMS: CONSTITUTIONAL: Positive for weight loss. Also positive for fatigue. EYES: No change in vision. ENT: Negative for epistaxis, nasal discharge or sore throat. CARDIOVASCULAR: Negative for chest pain, palpitations, dizziness, or diaphoresis. RESPIRATORY: Negative for new shortness of breath or cough. GASTROINTESTINAL: Endorses dark, tarry stools. Negative for nausea, vomiting, or abdominal pain. GENITOURINARY: Negative. NEUROLOGIC: Positive for generalized weakness. No headaches or dizziness. LYMPHATICS AND HEMATOLOGIC: Negative for abnormal bleeding or new adenopathy. MUSCULOSKELETAL: Positive for generalized bone pain. ALLERGIC AND IMMUNOLOGIC: Positive for new rash. PHYSICAL EXAMINATION: VITAL SIGNS: Blood pressure 121/59, heart rate 81, respiratory rate 16, temperature 36.9, oxygen saturation 96% on room air. CONSTITUTIONAL: Generally very cachectic female in no obvious distress. EYES: Without conjunctival erythema or icterus. RESPIRATORY: Lung sounds were generally clear bilaterally. CARDIOVASCULAR: Heart with regular rate and rhythm without significant murmur, gallops, or rubs. GASTROINTESTINAL: Abdomen was soft with normal bowel sounds and no palpable hepatosplenomegaly. MUSCULOSKELETAL SYSTEM: Unremarkable. SKIN: Unremarkable. EXTREMITIES: Negative for edema or erythema. LABORATORY TESTING: CBC from 01/31/2022 significant for white count of 3.55, hemoglobin of 10.2, hematocrit of 30.6 with platelet count of 123,000. Chemistry significant for sodium of 132, potassium 3.9, chloride of 98, bicarbonate of 26, anion gap of 8, BUN 67, creatinine of 1.35. IMAGING STUDIES: Chest x-ray on 01/31/2022, no acute abnormalities. IMPRESSION: 1. Pancytopenia. 2. Cachexia/failure to thrive. 3. Generalized rash. 4. Stage III breast cancer. A very pleasant female who was recently diagnosed with ER/WI negative, HER-2/catina positive breast cancer for which she most recently received cycle #1 of neoadjuvant systemic therapy with carboplatin, docetaxel, pertuzumab, and trastuzumab with G-CSF/neulasta support on 01/25/2022. She presented to the ER with generalized weakness, failure to thrive, and suspected gastrointestinal bleeding. I believe she would benefit from supplemental feeding via PEG tube given continued failure to thrive for which I would recommend GI evaluation. Pancytopenia is most likely due to recent chemotherapy and possible GI bleeding. Given concern for GI bleeding, recommend checking iron studies including ferritin to see if she may benefit from IV iron supplementation. Also recommmend checking for Vit B12/folate deficiency given poor nutrition. Rash is highly concerning for shingles and I would recommend empiric treatment with Valtrex. PLAN: 1. Recommend GI consult for suspected gastrointestinal bleeding as well as consideration for PEG tube placement. 2. Agree with surgical consult for possible MediPort placement. 3. Valtrex for suspected shingles 4. Recommend checking iron studies, vitamin B12, and folate levels for anemia workup. Thank you for this consult. Oncology will continue following the patient while in the hospital. Please feel free to call if you have any further questions. Job ID: [id number] [facility]Hang
[2022-02-01 03:14] LABS: Hematocrit (blood only) 24.3 % (37-47); Hemoglobin 8.3 g/dL (12.0-16.0); Mean Corpuscular Hemoglobin 32.5 pg (25-34); Mean Corpuscular Hgb Conc 34.2 g/dL (32-36); Mean Corpuscular Volume 95.3 fL (80-100); Mean Platelet Volume 11.2 fL (7.4-10.4); Platelet Count 108 K/uL (130-400); RDW Coefficient of Variation 12.3 % (11.5-14.5); RDW Standard Deviation 42.7 fL (36.4-46.3); Red Blood Count 2.55 M/uL (4.2-5.4); White Blood Count 9.85 K/uL (4.8-10.8)
[2022-02-01 03:38] LABS: ALC (manual) 0.26 K/uL (1.2-3.4); ANC (manual) 8.48 K/uL (1.4-6.5); Dohle Bodies 1+; Lymphocytes # (manual) 0.26 K/uL (1.2-3.4); Lymphocytes % (manual) 2.6 %; Monocytes # (manual) 1.11 K/uL (0.11-0.59); Monocytes % (manual) 11.3 %; Neutrophils # (manual) 8.48 K/uL (1.4-6.5); Neutrophils % (manual) 86.1 %; Toxic Granulation 1+
[2022-02-01 03:57] LABS: Albumin Globulin Ratio 0.9 (0.9-2); Albumin Level 2.4 gm/dl (3.4-5.0); BUN Creatinine Ratio 49.1 (10-20); Bilirubin,Total 0.4 mg/dl (0.2-1.0); Calcium 7.6 mg/dl (8.5-10.1); Creatinine Clr Calc Pharmacy 25.2 ml/min; Est GFR (African American) 54.1 ml/min; Est GFR (Non-African American) 46.7 ml/min; Globulin 2.8 gm/dl (2.5-4.0); Magnesium 1.6 mg/dl (1.7-2.4); Potassium 3.2 mmol/L (3.5-5.1); Total Protein 5.2 gm/dl (6.0-8.3)
[2022-02-01] MEDS: D5W AND LACTATED RINGERS 1,000 ML IV SCH ×2 (06:15→17:39)
[2022-02-01] MEDS: dilTIAZem HCl 60 MG TAB PO SCH (08:34)
[2022-02-01] MEDS: PANTOprazole 40 MG in SYRINGE 0 ML IV SCH ×2 (08:35→20:15)
[2022-02-01] MEDS: MIRTAZAPINE TAB 15 MG TAB PO SCH (08:35)
[2022-02-01] MEDS ORDERED: LISINOPRIL/HCTZ 20/25MG 1 TAB PO SCH (09:00)
--- NOTE | 2022-02-01 10:01 | Gastrointestinal Consultation ---
Date of Consultation February 01, 2022 Assessment & Plan (1) Anemia: (2) Adult failure to thrive: -Continue to monitor H/H closely -IV Protonix 40 mg BID -Can fit onto schedule for EGD on Saturday02/05/22--if no GI bleeding, plan to proceed with PEG at that time. -Please keep patient NPO after midnight so that we can proceed with procedure on 02/05/22 Supervising Physician Co-Signing Physician Notes I personally evaluated the patient and agree with the findings as documented by Yolanda Pena, ORALIA Exam: Constitutional: WD/WN, vitals as above General: EOM intact bilaterally Neck: normal visual inspection Respiratory: normal respiratory effort, lungs clear to auscultation Cardiovascular: RRR, no murmur, no edema Gastrointestinal: abdomennormal to inspection, nondistended, soft, nontender, no hepatosplenomegaly Musculoskeletal: no cyanosis, head normal to inspection Skin: no rashes, warm and dry Neurologic: moves all extremities Psychiatric: A and O x3, euthymic affect patient currently with a significant leukocytosis and possible GI bleeding (does endorse black stools). recs: --rule out infection at this time, infection is a contraindication to PEG tube placement will need to rule this out prior to placement --should she continue to show evidence of bleeding then will likely plan for EGD sooner if needed and would have to defer PEG tube placement to a later time --should there be no evidence of infection then can tentatively plan for EGD and PEG tube placement 02/05 in the morning, NPO post midnight saturday night --supportive care, protonix BID History of Present Illness Reason for Consultation: Anemia & consideration of PEG tube for failure to thrive Attending Physician: Refugio Grace MD History of Present Illness Patient is a 71 yo female with PMH of hypertension and stage 3 breast cancer recently diagnosed. She was referred to the ER for evaluation at the request of her oncologist due to generalized weakness. She underwent her first chemotherapy treatment on 01/25 (Neulasta). She developed a rash and diarrhea on 01/28. She notes moving her bowels 5 times daily. She denies any obvious blood in her stool. She feels that her appetite is quickly declining and the Marinol she was prescribed is not helping. H/H 8.3/24.3. K 3.2. Mg 1.6, AST 81, ALT 25. Procalcitonin 1.1. Her BMI is 13.5. She denies NSAID use. She denies GI history. No history of abdominal surgeries. No pertinent GI family history. She notes that she is agreeable to PEG placement, but she did eat breakfast this morning as well as she was not NPO. Allergies Allergy/AdvReac Type Severity Reaction Status Date / Time pistachio nut AdvReac Severe Red face Unverified 01/31/22 10:37 and hands ~ Throwing up Home Medications Medication Instructions Recorded Confirmed Type diltiazem HCl 120 mg tablet 120 mg PO BID 01/31/22 01/31/22 History lisinopril 20 1 tab PO [facility] 01/31/22 01/31/22 History mg-hydrochlorothiazide 25 mg tablet methylprednisolone 4 mg tablets in 4 mg PO .TAPER DOSE 01/31/22 01/31/22 History a dose pack mirtazapine 15 mg tablet 15 mg PO [facility] 01/31/22 01/31/22 History ondansetron HCl 8 mg tablet 8 mg PO Q8H PRN 01/31/22 01/31/22 History prochlorperazine maleate 10 mg 10 mg PO Q6H PRN 01/31/22 01/31/22 History tablet tramadol 50 mg tablet 50 mg PO Q6H PRN 01/31/22 01/31/22 History Patient History Medical History Breast cancer Hypertension Social History Smoking Status: Current some day smoker Tobacco Type: Cigarettes Hx Alcohol Use: Yes Alcohol type: hard liquor Hx Substance Use: No Preferred Language: Sinhala Communication Ability: Effective Loft Worker Required: No Beliefs That Will Affect Care: None marital status: / Current Living Situation: Family How many Children do You have: 1 Other Information That Helps Us Care for You: No Feels Safe at Home: Yes Assistive Devices: Assistive Devices Comment: shower bench Review of Systems Constitutional: no fever and no chills Respiratory: no cough and no dyspnea Cardiovascular: no chest pain Gastrointestinal: + change in bowel habits; no abdominal pain, no heartburn and no hematemesis Integumentary: + rash Psychiatric: no problem reported Hematologic / Lymphatic: + unexplained weight loss Physical Exam Constitutional: well developed Neck: normal visual inspection Respiratory: normal respiratory effort Cardiovascular: Rate/Rhythm: regular rate Gastrointestinal (Abdomen): normal bowel sounds, soft, nontender, no hepatosplenomegaly Musculoskeletal: Head/Neck/Chest: normocephalic Skin: + rash Psychiatric: Orientation: alert and oriented x 3 Results & Data ([facility]) Vital Signs (Past 12 Hours) Vital Signs Temp Pulse Resp BP Pulse Ox 02/01/22 08:02 36.7 C 74 16 101/55 L 98 01/31/22 22:25 36.6 C 88 16 98/62 L 98 PG Care Time/CCT Total # of Minutes Spent Total Time Spent with Patient: Total time spent is greater than 50% in coordination of care (as documented) at patient's floor/unit and/or counseling patient: Coding Level of Care Code 36237 Initial Inpt Care Lvl 3 Diagnoses Anemia D64.9 Adult failure to thrive R62.7
[2022-02-01] MEDS: MAGNESIUM SULFATE / D5W 1 GM/100 ML BAG IV SCH ×2 (10:13→12:15)
[2022-02-01] MEDS: POTASSIUM CHLORIDE / WTR 10 MEQ/100 ML PLCT IV SCH ×4 (10:13→13:43)
[2022-02-01] MEDS: valACYclovir HCL 500 MG TABLET PO SCH (10:20)
[2022-02-01 12:40] LABS: Hematocrit (blood only) 24.7 % (37-47); Hemoglobin 8.4 g/dL (12.0-16.0); Mean Corpuscular Hemoglobin 32.3 pg (25-34); Mean Platelet Volume 11.8 fL (7.4-10.4); Platelet Count 124 K/uL (130-400); RDW Coefficient of Variation 12.3 % (11.5-14.5); RDW Standard Deviation 42.8 fL (36.4-46.3); White Blood Count 19.47 K/uL (4.8-10.8)
[2022-02-01 13:06] LABS: Basophils # (auto) 0.01 K/uL (0-0.2); Basophils % (auto) 0.1 %; Eosinophils # (auto) 0.17 K/uL (0-0.5); Eosinophils % (auto) 0.9 %; Immature Granulocytes # (auto) 0.95 K/uL (0.00-0.02); Immature Granulocytes % (auto) 4.9 %; Lymphocytes # (auto) 1.21 K/uL (1.2-3.4); Lymphocytes % (auto) 6.2 %; Monocytes % (auto) 2.1 %; Neutrophils # (auto) 16.73 K/uL (1.4-6.5); Neutrophils % (auto) 85.8 %; Toxic Granulation 1+
--- NOTE | 2022-02-01 13:59 | Hospitalist Progress Note ---
Date of Service February 01, 2022 Assessment & Plan (1) UGI bleed: Plan: - Suspected, vs chemo. BUN increased to 67, was 50 on 01/24. With reports of black, tarry stools over the past few days. Hgb 10.2, was 11.6 on 01/24. - Continue Protonix 40 twice daily - Hemoglobin 8.4 from 8.3, continue to trend - Methylpred held Gi consulted. Anticipate n.p.o. for EGD 02/05/2022. If no bleeding likely PEG placement at that time. (2) Adult failure to thrive: Plan: - Global weakness, fatigue, loss of appetite, suspect this is due to left breast cancer with first round of chemotherapy. - No obvious source of infection, however procalcitonin 1.10, she was mildly tachycardic on presentation. Was given a dose of cefepime in ED. Blood cultures pending, no growth to date -GI consulted for PEG placement, potential peg placement 02/05 as noted. General surgery consulted for port placement. May potentially be placed early next week pending clinical progression. - Continue IVF. - Dietitian consulted, appreciate their recommendations. Hypokalemia, hypomagnesemia repleted. Trend. (3) Breast cancer: Plan: - Stage 3 LEFT breast cancer ER/TX-, HER-2+ - Diagnosed on diagnostic mammogram 1 month ago. - Chemo regimen: Docetaxel, carboplatin, trastuzumab, pertuzumab [id number] x6 cycles possibly followed up with surgery. - First chemo was 01/25 - PET/brain MRI for full staging on 01/24, revealed 2 left breast masses, axiliary and L internal mammary lymph node involvement, no metastatic dz to abdomen or pelvis, 6 mm ground glass RLL nodule indeterminant, not suspected to be met dz. Marinol for appetite stimulation - Echo 01/24--> EF 60-65%, small pericardial effusion - Dr. Morgan consulted as above. -Antral port placement next week as noted (4) Facial rash: Plan: - Developed several days after first chemotherapy treatment. Most prominent on left forehead, although also involves bilateral nasolabial folds and some on the right side of face. -Split consistent with shingles, although not in a strict dermatomal pattern Recommended to treat empirically with valacyclovir, started. Appreciate recommendations (5) Elevated AST (SGOT): Plan: - AST 114, trending up since 01/11. ALT within normal limits, but also trending up since 01/11. T bili 0.5, alk phos 68. - Patient is not having any abdominal pain. PET scan did not show any metastatic disease to liver. -Trend CMP (6) Hyponatremia: Plan: - 132, chronic since 01/11 - Suspect may be due to decreased po intake, diarrhea vs SIADH induced by cancer, chemotherapy. - Received 2L IVF in ED. continue IV FM -Daily BMP (7) Pancytopenia: Plan: - In setting of chemo on 01/25, labs normocytic prior to. Reportedly received Neulasta following chemo. - Continue to follow on daily CBC. (8) Hypertension: Plan: - On diltiazem and lisinopril/HCTZ, will hold these for today due to hypovolemia, hyponatremia. - Continue to monitor BP. (9) CKD (chronic kidney disease) stage 3, GFR 30-59 ml/min: Plan: - BUN 67 increased from presumed baseline on 01/11 with creatinine 1.35 on admission, down trended to 1.16 - Renally dose medications as able, avoid nephrotoxic agents. - Follow on daily BMP. Plan: - Admit to med/surg. - SCDs for DVT ppx, hold on chemoppx until GI bleed is ruled out. - DNR/DNI. Admission and Anticipated Discharge Date Admission Date: January 31, 2022 Subjective No clinical change this morning. Denies fever, chills, lightheadedness, dizziness, chest pain, chest pressure. Reports had a "small smear "of a bowel movement, but is not sure what color. Denies other bleeding. Continues to feel fatigued, but otherwise no change from admission. Has discussed with GI, potential EGD with PEG placement is pending. May have port placement early next week by surgery based on clinical course. Cultures remain negative. Review of Systems Review of Systems: All systems reviewed & are unremarkable except as noted in Subjective Physical Exam Physical Exam: General: A&Ox3. Cooperative. Frail. HEENT: Atraumatic, normocephalic. PERLAA, EoM intact. Vision/hearing grossly intact Pulm: CTAB A&P. -wheezes, -rales, -rhonchi. Symmetrical chest rise. No increase work of breathing. No respiratory distress. Cardiac: RRR, -mrg. Radial pulses intact and symmetrical. Abdominal: Nontender, nondistended, soft. BS present. Skin: Diffuse, nonpruritic, nontender eschar on R foreheadd, bilateral NLF, perioral space with minimal erythema and no vesicles. Results & Data Results & Data ([facility]) Vital Signs (Past 12 Hours) Vital Signs Temp Pulse Resp BP Pulse Ox 02/01/22 08:02 36.7 C 74 16 101/55 L 98 PG Care Time/CCT Total # of Minutes Spent Total Time Spent with Patient: Total time spent is greater than 50% in coordination of care (as documented) at patient's floor/unit and/or counseling patient: Coding Level of Care Code 04170 Subseq Hosp Care Lvl 2 Diagnoses UGI bleed K92.2 Adult failure to thrive R62.7 Facial rash R21 Elevated AST (SGOT) R74.01 Hyponatremia E87.1 Pancytopenia D61.818 Breast cancer C50.912 Breast location: unspecified site of breast Estrogen receptor status: unspecified Patient sex: female Laterality: left Hypertension I10 Hypertension type: primary hypertension CKD (chronic kidney disease) stage 3, GFR 30-59 ml/min N18.30 (1) Breast cancer Breast location: unspecified site of breast Estrogen receptor status: unspecified Patient sex: female Laterality: left Qualified Code(s): C50.912 - Malignant neoplasm of unspecified site of left female breast (2) Hypertension Hypertension type: primary hypertension Qualified Code(s): I10 - Essential (primary) hypertension
[2022-02-01] MEDS: THIAMINE HCL 100 MG TAB PO SCH (17:36)
[2022-02-01] MEDS: CEFEPIME 2,000 MG in SYRINGE 0 ML IV SCH (22:56)
--- NOTE | 2022-02-01 23:38 | Electrocardiogram Report ---
Test Reason : Blood Pressure : / mmHG Vent. Rate : 092 BPM Atrial Rate : 092 BPM P-R Int : 148 ms QRS Dur : 064 ms QT Int : 354 ms P-R-T Axes : 077 086 078 degrees QTc Int : 437 ms Normal sinus rhythm Possible Left atrial enlargement Low voltage QRS Anteroseptal infarct , age undetermined Nonspecific T wave abnormality Abnormal ECG When compared with ECG of 13-MAY-2000 14:03, Questionable change in QRS duration Minimal criteria for Anteroseptal infarct are now Present Confirmed by Catracho Quesada ([id number]) on 02/01/2022 11:38:01 PM Referred By: REFERRED SELF Confirmed By:Catracho Quesada
[2022-02-02] MEDS: D5W AND LACTATED RINGERS 1,000 ML IV SCH ×2 (05:40→16:42)
[2022-02-02 06:42] LABS: Hemoglobin 7.8 g/dL (12.0-16.0); Mean Corpuscular Hemoglobin 32.1 pg (25-34); Mean Corpuscular Hgb Conc 33.9 g/dL (32-36); Mean Corpuscular Volume 94.7 fL (80-100); RDW Coefficient of Variation 12.3 % (11.5-14.5); RDW Standard Deviation 42.5 fL (36.4-46.3); Red Blood Count 2.43 M/uL (4.2-5.4); White Blood Count 34.89 K/uL (4.8-10.8)
[2022-02-02 06:48] LABS: Mean Platelet Volume 12.1 fL (7.4-10.4); Platelet Count 118 K/uL (130-400)
[2022-02-02 06:49] LABS: ALC (manual) 0.91 K/uL (1.2-3.4); ANC (manual) 32.17 K/uL (1.4-6.5); Dohle Bodies 3+; Lymphocytes # (manual) 0.91 K/uL (1.2-3.4); Lymphocytes % (manual) 2.6 %; Metamyelocytes # (manual) 0.31 K/uL (0-0); Metamyelocytes % (manual) 0.9 %; Monocytes % (manual) 4.3 %; Neutrophils # (manual) 32.17 K/uL (1.4-6.5); Neutrophils % (manual) 92.2 %; Platelet Estimate Normal (Normal); Toxic Granulation 1+
[2022-02-02 06:51] LABS: BUN Creatinine Ratio 34.5 (10-20); C Reactive Protein 6.81 mg/dl (0-0.5); Calcium 7.5 mg/dl (8.5-10.1); Creatinine Clr Calc Pharmacy 25.2 ml/min; Est GFR (African American) 54.1 ml/min; Est GFR (Non-African American) 46.7 ml/min
[2022-02-02] MEDS: MIRTAZAPINE TAB 15 MG TAB PO SCH (08:59)
[2022-02-02] MEDS: PANTOprazole 40 MG in SYRINGE 0 ML IV SCH ×2 (08:59→22:28)
[2022-02-02] MEDS: valACYclovir HCL 500 MG TABLET PO SCH (09:00)
[2022-02-02] MEDS: THIAMINE HCL 100 MG TAB PO SCH (09:00)
[2022-02-02] MEDS ORDERED: POTASSIUM CHLORIDE 20 MEQ/15 ML UDC PO STA (09:06)
--- NOTE | 2022-02-02 10:12 | Surgery Progress Note ---
Date of Service February 02, 2022 Assessment & Plan (1) Breast cancer: (2) Pancytopenia: (3) UGI bleed: Plan: history of dark/black stools Hemoccult + 02/01/2022 Hemoglobin 7.8 today (4) Adult failure to thrive: Plan: 71 year-old female with stage III left breast cancer who presented to ED with increasing weakness, diarrhea, and rash on face after initiation of first round of chemotherapy on 01/25/22. Found to be pancytopenic in ED with suspicion for UGI bleed due to dark/black stools 02/02/2022: Leukocytosis of 34K today, afebrile Blood cultures 1/2 with gram negative bacilli Going for CT scan abdomen and pelvis with oral and IV contrast No abdominal pain, nausea or vomiting Plan: Initially scheduled patient for placement of aport catheter on Saturday02/05/[address] Nur. Given increase in Leukocytosis to 34k and + blood cultures this is now cancelled. Await results of CT scan of abdomen and pelvis Continue IV antibiotics Continue current medical management EGD/possible PEG tube per GI, was tentatively scheduled for Saturday02/05/2022 however this may also be delayed given bacteremia and wbc of 34k BOOST BID Dr. Crawford covering for surgery over weekend. Will follow peripherally over weekend. Call with any questions/concerns. Unfortunately given the bacteremia , aport placement will likely be placed as outpatient once treatment for bacteremia and any underlying infection is completed and patient has clinically improved. Discussed with Dr. Nur who agrees with above. Admission and Anticipated Discharge Date Admission Date: January 31, 2022 Subjective no fevers or chills no shortness of breath or cough no dysuria no abdominal pain was able to eat 4 spoonfuls of cream of wheat this morning and boost Going for CT scan today, trying to drink the oral contrast Physical Exam Constitutional: + thin, + cachectic, + frail appearing and cooperative; no acute distress and not ill appearing Neck: normal visual inspection and trachea midline Respiratory: normal respiratory effort; no respiratory distress, no labored breathing and no retractions Chest (Breasts): Additional Comments: Left breast mass with associated breast erythema, no induration or fluctuance Gastrointestinal (Abdomen): Inspection/Auscultation: abdomen normal to inspection and + hypoactive bowel sounds; abdomen not distended and + abnormal bowel sounds Percussion/Palpation: abdomen soft; abdomen nontender, no guarding and abdomen not rigid Skin: no rashes, warm and dry no jaundice Psychiatric: Orientation: alert and oriented x 3 Affect: + flat affect Results & Data ([facility]) Vital Signs (Past 12 Hours) Vital Signs Temp Pulse Resp BP Pulse Ox 02/02/22 07:39 36.8 C 80 16 108/70 94 02/01/22 23:00 36.5 C 71 16 105/65 96 Laboratory Results 02/02/22 02/02/22 02/02/22 Range/Units 06:13 06:13 06:13 WBC (4.8-10.8) K/uL RBC (4.2-5.4) M/uL Hgb (12.0-16.0) g/dL Hct (37-47) % MCV (80-100) fL MCH (25-34) pg MCHC (32-36) g/dL RDW Std Deviation (36.4-46.3) fL RDW Coeff of Emil (11.5-14.5) % Plt Count (130-400) K/uL MPV (7.4-10.4) fL Immature Gran % (Auto) % Neut % (Auto) % Lymph % (Auto) % Granite % (Auto) % Eos % (Auto) % Baso % (Auto) % Neut # (Auto) (1.4-6.5) K/uL Lymph # (Auto) (1.2-3.4) K/uL Granite # (Auto) (0.11-0.59) K/uL Eos # (Auto) (0-0.5) K/uL Baso # (Auto) (0-0.2) K/uL Immature Gran # (Auto) (0.00-0.02) K/uL Neutrophils % (Manual) % Lymphocytes % (Manual) % Monocytes % (Manual) % Metamyelocytes % (Man) % Neutrophils # (Manual) (1.4-6.5) K/uL Total Absolute Neuts (1.4-6.5) K/uL Lymphocytes # (Manual) (1.2-3.4) K/uL Total Abs Lymphocytes (1.2-3.4) K/uL Monocytes # (Manual) (0.11-0.59) K/uL Metamyelocytes # (Man) (0-0) K/uL Toxic Granulation Dohle Bodies Platelet Estimate (Normal) Sodium 133 L (136-145) mmol/L Potassium 3.0 L (3.5-5.1) mmol/L Chloride 107 (98-107) mmol/L Carbon Dioxide 21 (21-32) mmol/L Anion Gap 5 (3-11) BUN 40 H (6-23) mg/dl Creatinine 1.16 (0.6-1.2) mg/dl Est Cr Clr Drug Dosing 25.2 ml/min Est GFR ( Amer) 54.1 ml/min Est GFR (Non-Af Amer) 46.7 ml/min BUN/Creatinine Ratio 34.5 H (10-20) Glucose 113 H (70-99(Fasting)) mg/dl Calcium 7.5 L (8.5-10.1) mg/dl Magnesium Pending C-Reactive Protein 6.81 H (0-0.5) mg/dl Procalcitonin 2.81 H (0-0.5) ng/ml Stool Occult Bld Scrn (Negative) 02/02/22 02/01/22 02/01/22 Range/Units 06:13 22:07 12:23 WBC 34.89 H* D 19.47 H (4.8-10.8) K/uL RBC 2.43 L 2.60 L (4.2-5.4) M/uL Hgb 7.8 L 8.4 L (12.0-16.0) g/dL Hct 23.0 L 24.7 L (37-47) % MCV 94.7 95.0 (80-100) fL MCH 32.1 32.3 (25-34) pg MCHC 33.9 34.0 (32-36) g/dL RDW Std Deviation 42.5 42.8 (36.4-46.3) fL RDW Coeff of Emil 12.3 12.3 (11.5-14.5) % Plt Count 118 L 124 L (130-400) K/uL MPV 12.1 H 11.8 H (7.4-10.4) fL Immature Gran % (Auto) 4.9 % Neut % (Auto) 85.8 % Lymph % (Auto) 6.2 % Granite % (Auto) 2.1 % Eos % (Auto) 0.9 % Baso % (Auto) 0.1 % Neut # (Auto) 16.73 H (1.4-6.5) K/uL Lymph # (Auto) 1.21 (1.2-3.4) K/uL Granite # (Auto) 0.40 (0.11-0.59) K/uL Eos # (Auto) 0.17 (0-0.5) K/uL Baso # (Auto) 0.01 (0-0.2) K/uL Immature Gran # (Auto) 0.95 H (0.00-0.02) K/uL Neutrophils % (Manual) 92.2 % Lymphocytes % (Manual) 2.6 % Monocytes % (Manual) 4.3 % Metamyelocytes % (Man) 0.9 % Neutrophils # (Manual) 32.17 H (1.4-6.5) K/uL Total Absolute Neuts 32.17 H (1.4-6.5) K/uL Lymphocytes # (Manual) 0.91 L (1.2-3.4) K/uL Total Abs Lymphocytes 0.91 L (1.2-3.4) K/uL Monocytes # (Manual) 1.50 H (0.11-0.59) K/uL Metamyelocytes # (Man) 0.31 H (0-0) K/uL Toxic Granulation 1+ 1+ Dohle Bodies 3+ Platelet Estimate Normal (Normal) Sodium (136-145) mmol/L Potassium (3.5-5.1) mmol/L Chloride (98-107) mmol/L Carbon Dioxide (21-32) mmol/L Anion Gap (3-11) BUN (6-23) mg/dl Creatinine (0.6-1.2) mg/dl Est Cr Clr Drug Dosing ml/min Est GFR ( Amer) ml/min Est GFR (Non-Af Amer) ml/min BUN/Creatinine Ratio (10-20) Glucose (70-99(Fasting)) mg/dl Calcium (8.5-10.1) mg/dl Magnesium C-Reactive Protein (0-0.5) mg/dl Procalcitonin (0-0.5) ng/ml Stool Occult Bld Scrn Positive A (Negative) Microbiology 01/31/22 10:20 Aerobic Blood Culture - Preliminary Blood Gram negative bacilli Anaerobic Blood Culture - Final 01/31/22 09:40 Aerobic Blood Culture - Preliminary Blood No growth in Aerobic bottle after 24 hours. Anaerobic Blood Culture - Preliminary No growth in Anaerobic bottle after 24 hours. (1) Breast cancer Breast location: unspecified site of breast Estrogen receptor status: unspecified Laterality: left Patient sex: female Qualified Code(s): C50.912 - Malignant neoplasm of unspecified site of left female breast
--- NOTE | 2022-02-02 10:21 | Communication Note ---
Date of Service: February 02, 2022 WBC count bumped to 35,000 overnight. H/H 7.8/23.0. Discussed care with hospitalist provider. Agree with proceeding with a CT abdomen/pelvis with po &IV contrast as well as stool studies to rule out GI infection. If infection not identified/improved, would not be able to move forward with PEG on Saturday. Continue Protonix IV 40 mg BID for now and monitor H/H.
[2022-02-02] MEDS: POTASSIUM CHLORIDE 20 MEQ/15 ML UDC PO SCH ×2 (11:57→16:40)
--- NOTE | 2022-02-02 12:19 | Hospitalist Progress Note ---
Date of Service February 02, 2022 Assessment & Plan (1) UGI bleed: Plan: - Suspected, vs chemo. BUN increased to 67, was 50 on 01/24. With reports of black, tarry stools over the past few days. Hgb 10.2, was 11.6 on 01/24. - Continue Protonix 40 twice daily - Hemoglobin +/- 1 point. Continue to trend - Methylpred held Gi consulted. ?GI infection/bacteremia versus Neulasta.EGD/PEG based on evaluation and response (2) Bacteremia: Plan: Patient with rapidly uptrending leukocytosis/ and 02/02. Likely due to Neulasta, but given potential translocation and initial gram-negative bacteremia below we will treat as real and evaluate Restarted empirically on cefepime evening of 02/01 given uptrending leukocytosis and acutely worsened hypotension concerning for potential early sepsis Surveillance cultures ordered Patient denies cough, shortness of breath, difficulty breathing, abdominal pain, urinary symptoms. Note she has had the rash on her face, otherwise denies any symptoms of infection Blood cultures positive for gram-negative bacilli 09/26. Given above, may be real Repeat UA ordered, 01/31 without bacteria/LE. Surveillance cultures ordered Given concern for abdominal source history of cancer CT obtained with IV contrast. Did discuss with GI, recommended to add oral contrast as well. This has been ordered and pending Continue cefepime and follow cultures (3) Adult failure to thrive: Plan: - Global weakness, fatigue, loss of appetite, suspect this is due to left breast cancer with first round of chemotherapy. - No obvious source of infection, however procalcitonin 1.10, she was mildly tachycardic on presentation. Was given a dose of cefepime in ED. Blood cultures pending, no growth to date -GI consulted for PEG placement, potential peg placement 02/05 as noted. General surgery consulted for port placement. May potentially be placed early next week pending clinical progression: Acute infection and bacteremia must be addressed first. Follow electrolytes, replete as needed. Potassium and magnesium given 02/02 - Dietitian consulted, appreciate their recommendations. (4) Breast cancer: Plan: - Stage 3 LEFT breast cancer [place]-, HER-2+ - Diagnosed on diagnostic mammogram 1 month ago. - Chemo regimen: Docetaxel, carboplatin, trastuzumab, pertuzumab [id number] x6 cycles possibly followed up with surgery. - First chemo was 01/25 - PET/brain MRI for full staging on 01/24, revealed 2 left breast masses, axiliary and L internal mammary lymph node involvement, no metastatic dz to abdomen or pelvis, 6 mm ground glass RLL nodule indeterminant, not suspected to be met dz. Marinol for appetite stimulation - Echo 01/24--> EF 60-65%, small pericardial effusion - Dr. Morgan consulted as above. -Antral port placement next week as noted (5) Facial rash: Plan: - Developed several days after first chemotherapy treatment. Most prominent on left forehead, although also involves bilateral nasolabial folds and some on the right side of face. -Possibly consistent with shingles, although not in a strict dermatomal pattern Recommended to treat empirically with valacyclovir, started. We will continue. Appreciate recommendations (6) Elevated AST (SGOT): Plan: - AST 114, trending up since 01/11. ALT within normal limits, but also trending up since 01/11. T bili 0.5, alk phos 68. - Patient is not having any abdominal pain. PET scan did not show any metastatic disease to liver. -Trend CMP (7) Hyponatremia: Plan: - 132, chronic since 01/11 - Suspect may be due to decreased po intake, diarrhea vs SIADH induced by cancer, chemotherapy. - Received 2L IVF in ED. continue IV FM -Daily BMP (8) Pancytopenia: Plan: - In setting of chemo on 01/25, labs normocytic prior to. Reportedly received Neulasta following chemo. - Continue to follow on daily CBC. (9) Hypertension: Plan: - On diltiazem and lisinopril/HCTZ, blood pressure remains low normal. Defer these at this time - Continue to monitor BP. (10) CKD (chronic kidney disease) stage 3, GFR 30-59 ml/min: Plan: - BUN 67 increased from presumed baseline on 01/11 with creatinine 1.35 on admission, down trended - Renally dose medications as able, avoid nephrotoxic agents. - Follow on daily BMP. Plan: - Admit to med/surg. - SCDs for DVT ppx, hold on chemoppx until GI bleed is ruled out. - DNR/DNI. Admission and Anticipated Discharge Date Admission Date: January 31, 2022 Subjective Seen at bedside in morning, and again on afternoon reassessment with daughter present. Patient does have a little sore throat and felt a little cold, denies fevers this morning. No abdominal pain. No urinary symptoms or dysuria. Does feel globally fatigued and wiped out. Denies leg swelling. Rash persists on face, is not painful or itchy. Review of Systems Review of Systems: All systems reviewed & are unremarkable except as noted in Subjective Physical Exam Physical Exam: General: A&Ox3. Cooperative. Frail. HEENT: Atraumatic, normocephalic. PERLAA, EoM intact. Vision/hearing grossly intact Pulm: CTAB A&P. -wheezes, -rales, -rhonchi. Symmetrical chest rise. No increase work of breathing. No respiratory distress. Cardiac: RRR, -mrg. Radial pulses intact and symmetrical. Abdominal: Nontender, nondistended, soft. BS present. Skin: Diffuse, nonpruritic, nontender eschar on R foreheadd, bilateral NLF, perioral space with minimal erythema and no vesicles. Minimal change from prior Results & Data Results & Data ([facility]) Vital Signs (Past 12 Hours) Vital Signs Temp Pulse Resp BP Pulse Ox 02/02/22 07:39 36.8 C 80 16 108/70 94 PG Care Time/CCT Total # of Minutes Spent Total Time Spent with Patient: Total time spent is greater than 50% in coordination of care (as documented) at patient's floor/unit and/or counseling patient: Coding Level of Care Code 74147 Subseq Hosp Care Lvl 3 Diagnoses UGI bleed K92.2 Adult failure to thrive R62.7 Breast cancer C50.912 Breast location: unspecified site of breast Estrogen receptor status: unspecified Laterality: left Patient sex: female Facial rash R21 Elevated AST (SGOT) R74.01 Hyponatremia E87.1 Pancytopenia D61.818 Hypertension I10 Hypertension type: primary hypertension CKD (chronic kidney disease) stage 3, GFR 30-59 ml/min N18.30 Bacteremia R78.81 (1) Breast cancer Breast location: unspecified site of breast Estrogen receptor status: unspecified Laterality: left Patient sex: female Qualified Code(s): C50.912 - Malignant neoplasm of unspecified site of left female breast (2) Hypertension Hypertension type: primary hypertension Qualified Code(s): I10 - Essential (primary) hypertension
[2022-02-02 13:59] LABS: Adenovirus F 40/41 PCR Not Detected (NotDetected); Astrovirus PCR Not Detected (NotDetected); Campylobacter PCR Not Detected (NotDetected); Clostridium diff Toxin A/B PCR Not Detected (NotDetected); Cryptosporidium PCR Not Detected (NotDetected); Cyclospora cayetanensis PCR Not Detected (NotDetected); Entamoeba histolytica PCR Not Detected (NotDetected); Enteroaggregative E.coli(EAEC) Not Detected (NotDetected); Enteropathogenic E.coli (EPEC) Not Detected (NotDetected); Enterotoxigenic E.coli (ETEC) Not Detected (NotDetected); Giardia lamblia PCR Not Detected (NotDetected); Norovirus GI/GII PCR Not Detected (NotDetected); Plesiomonas shigelloides PCR Not Detected (NotDetected); Rotavirus A PCR Not Detected (NotDetected); Salmonella PCR Not Detected (NotDetected); Sapovirus PCR Not Detected (NotDetected); Shiga-like Toxin E.coli (STEC) Not Detected (NotDetected); Shigella/Enteroinvasive E.coli Not Detected (NotDetected); Vibrio cholerae PCR Not Detected (NotDetected); Vibrio species PCR Not Detected (NotDetected); Yersinia enterocolitica PCR Not Detected (NotDetected)
[2022-02-02] MEDS ORDERED: OPTIRAY 320 100ml IV ONE (16:35)
--- NOTE | 2022-02-02 16:41 | CT Scan Report ---
CT abd pelvis oral and IV con CLINICAL HISTORY: GN bacteremia, ab pain/diarrhea, hx cancer pendPEG TECHNIQUE: Helical axial images of the abdomen and pelvis were obtained and displayed. Automated dose lowering techniques and/or adjustment according to patient size were utilized for this exam. This e xam was performed with intravenous contrast. CT DOSE: 231.78 mGycm COMPARISON: None available at the time of this dictation. FINDINGS: Lower chest: Small bilateral pleural effusions are seen, left greater than right, with associated at electasis. Liver: Unremarkable. No focal lesions are seen. Gallbladder and biliary tree: No calcified gallstones. Normal caliber wall. No intra- or extrahepatic biliary ductal dilation. Pancreas: Unremarkable, no focal lesions. Spleen: Unremarkable. Adrenals: Unremarkable. Kidneys and ureters: Subcentimeter hypodensities are too small to characterize. Bladder: Unremarkable. Reproductive organs: Calcified lesion in the uterus is favored to represent calcified fibroid. Bowel: Liquid contents are seen in the rectum. Lymph nodes Retroperitoneal: Unremarkable. Mesenteric: Unremarkable. Pelvic: Unremarkable. Peritoneum: Normal. Vessels: Atherosclerotic calcifications are seen. Significant stenosis of the right internal iliac ar carmen is seen. Abdominal wall: Unremarkable. Bones: Unremarkable. IMPRESSION: Liquid stool is seen in the rectum compatible with history of diarrhea. No additional abnormality is seen. ACT 112: Negative or not required by law. Electronically signed by: Benoit Fry M.D. 02/02/2022 4:39 PM
[2022-02-02] MEDS: CEFEPIME 2,000 MG in SYRINGE 0 ML IV SCH (21:31)
[2022-02-02 22:31] LABS: Appearance Urine Clear (Clear); Bacteria Urine Automated Negative (Negative); Bilirubin Urine Negative (Negative); Blood Urine 1+ (Negative); Color Urine Yellow; Epithelial Cell Urine Auto 20-30 /lpf (0-5); Glucose Urine UA Negative (Negative); Ketones Urine Negative (Negative); Leukocyte Esterase Urine Negative (Negative); Nitrite Urine Negative (Negative); Protein Urine Trace (Negative); RBC Urine Automated 0-4 /hpf (0-4); Specific Gravity Urine 1.026 (1.000-1.030); Urobilinogen Urine Negative (Negative)
[2022-02-03] MEDS: D5W AND LACTATED RINGERS 1,000 ML IV SCH (01:52)
[2022-02-03 06:48] LABS: BUN Creatinine Ratio 28.2 (10-20); Calcium 7.4 mg/dl (8.5-10.1); Creatinine Clr Calc Pharmacy 30.1 ml/min; Est GFR (African American) 62.5 ml/min; Est GFR (Non-African American) 53.9 ml/min; Potassium 2.6 mmol/L (3.5-5.1)
[2022-02-03 07:31] LABS: Hematocrit (blood only) 23.3 % (37-47); Mean Corpuscular Hemoglobin 32.7 pg (25-34); Mean Corpuscular Hgb Conc 34.3 g/dL (32-36); Mean Corpuscular Volume 95.1 fL (80-100); RDW Coefficient of Variation 12.6 % (11.5-14.5); RDW Standard Deviation 43.7 fL (36.4-46.3); Red Blood Count 2.45 M/uL (4.2-5.4); White Blood Count 40.69 K/uL (4.8-10.8)
[2022-02-03 07:40] LABS: Mean Platelet Volume 11.4 fL (7.4-10.4); Platelet Count 141 K/uL (130-400)
[2022-02-03 07:41] LABS: Dohle Bodies 2+; Platelet Estimate Normal (Normal); Toxic Granulation 2+
[2022-02-03 07:56] LABS: Lymphocytes % (manual) 0.9 %; Monocytes % (manual) 1.7 %; Neutrophils % (manual) 97.4 %
[2022-02-03 08:12] LABS: ALC (manual) 0.37 K/uL (1.2-3.4)
[2022-02-03 08:13] LABS: Lymphocytes # (manual) 0.37 K/uL (1.2-3.4)
[2022-02-03 08:14] LABS: Monocytes # (manual) 0.76 K/uL (0.11-0.59)
[2022-02-03] MEDS: valACYclovir HCL 500 MG TABLET PO SCH (08:53)
[2022-02-03] MEDS: MAGNESIUM OXIDE 400 MG TAB PO SCH (08:59)
[2022-02-03] MEDS: POTASSIUM CHLORIDE / WTR 10 MEQ/100 ML PLCT IV SCH ×8 (08:59→18:46)
[2022-02-03] MEDS ORDERED: cefTRIAXone SODIUM 2,000 MG in DEXTROSE 5% 50 ML IV SCH (09:00)
[2022-02-03] MEDS: POTASSIUM CHLORIDE CRTAB 20 MEQ TABCR PO SCH ×3 (09:00→22:19)
[2022-02-03] MEDS: MIRTAZAPINE TAB 15 MG TAB PO SCH (09:00)
[2022-02-03] MEDS: THIAMINE HCL 100 MG TAB PO SCH (09:00)
[2022-02-03] MEDS: PANTOprazole 40 MG in SYRINGE 0 ML IV SCH ×2 (09:00→22:18)
[2022-02-03] MEDS ORDERED: ceFAZolin 500 MG in SYRINGE 0 ML IV SCH (13:30)
--- NOTE | 2022-02-03 13:33 | Hospitalist Progress Note ---
Date of Service February 03, 2022 Assessment & Plan (1) UGI bleed: Plan: - Suspected, vs chemo. BUN increased to 67, was 50 on 01/24. With reports of black, tarry stools over the past few days. Hgb 10.2, was 11.6 on 01/24. - Continue Protonix 40 twice daily - Methylpred held Gi consulted. Pending EGD/PEG - Stabilized, hgb uptrending 02/03. Continue PPI. (2) Bacteremia: Plan: Patient with rapidly uptrending leukocytosis/ and 02/02. Likely due to Neulasta, but given potential translocation and initial gram-negative bacteremia below we will treat as real and evaluate Restarted empirically on cefepime evening of 02/01 given uptrending leukocytosis and acutely worsened hypotension concerning for potential early sepsis Surveillance cultures ordered Patient denies cough, shortness of breath, difficulty breathing, abdominal pain, urinary symptoms. Note she has had the rash on her face, otherwise denies any symptoms of infection Blood cultures positive for gram-negative bacilli 09/26. Repeat UA ordered, 01/31 without bacteria/LE. Surveillance cultures ordered Given concern for abdominal source history of cancer CT obtained with IV contrast. Did discuss with GI, recommended to add oral contrast as well. - CT-A/P: Liquid stool is seen in the rectum compatible with history of diarrhea. No additional abnormality is seen. Stool pathogen PCR panel negative Given above suspect bacteremia is likely due to gut translocation, no evidence of UTI or ongoing abdominal infection at this time. Based on E. coli sensitivities will narrow to cefazolin and continue for total 7-day course (until 02/08) given patient's risk. Extremely high white count is likely predominantly due to Neulasta. Follow repeat BC, will be 72 hours by Saturday. If remaining negative patient okay to continue GI work-up at that time. (3) Adult failure to thrive: Plan: - Global weakness, fatigue, loss of appetite, suspect this is due to left breast cancer with first round of chemotherapy. - No obvious source of infection, however procalcitonin 1.10, she was mildly tachycardic on presentation. Was given a dose of cefepime in ED. Blood cultures pending, no growth to date -GI consulted for PEG placement, potential peg placement 02/05 as noted. General surgery consulted for port placement. May potentially be placed early next week pending clinical progression. - Dietitian consulted, appreciate their recommendations. Hypokalemia Persistent despite repletion yesterday, poor p.o. intake, and in setting of some diarrhea Potassium 2.6 02/03, magnesium normal 40 M EQ x2 ordered, patient with poor p.o. toleration so KCl riders ordered Continue daily magnesium supplementation, defer high-dose for potential to worsen diarrhea (4) Breast cancer: Plan: - Stage 3 LEFT breast cancer [place]-, HER-2+ - Diagnosed on diagnostic mammogram 1 month ago. - Chemo regimen: Docetaxel, carboplatin, trastuzumab, pertuzumab [id number] x6 cycles possibly followed up with surgery. - First chemo was 01/25 - PET/brain MRI for full staging on 01/24, revealed 2 left breast masses, axiliary and L internal mammary lymph node involvement, no metastatic dz to abdomen or pelvis, 6 mm ground glass RLL nodule indeterminant, not suspected to be met dz. Marinol for appetite stimulation - Echo 01/24--> EF 60-65%, small pericardial effusion - Dr. Morgan consulted as above. -Anticipate possible port placement next week pending GI eval in possible PEG first. Surgery following. (5) Facial rash: Plan: - Developed several days after first chemotherapy treatment. Most prominent on left forehead, although also involves bilateral nasolabial folds and some on the right side of face. -Possibly consistent with shingles, although not in a strict dermatomal pattern Recommended to treat empirically with valacyclovir, started. 7-day course complete 02/08/2022. Appreciate recommendations (6) Elevated AST (SGOT): Plan: - AST 114, trending up since 01/11. ALT within normal limits, but also trending up since 01/11. T bili 0.5, alk phos 68. - Patient is not having any abdominal pain. PET scan did not show any met astatic disease to liver. -Trend CMP (7) Hyponatremia: Plan: - 132, chronic since 01/11 - Suspect may be due to decreased po intake, diarrhea vs SIADH induced by cancer, chemotherapy. - Received 2L IVF in ED. continue IV FM -Daily BMP (8) Pancytopenia: Plan: - In setting of chemo on 01/25, labs normocytic prior to. Received Neulasta following chemo. - Continue to follow on daily CBC. #Leukocytosis likely predominantly due to Neulasta treatment (9) Hypertension: Plan: - On diltiazem and lisinopril/HCTZ, blood pressure remains low normal. Defer these at this time - Continue to monitor BP. (10) CKD (chronic kidney disease) stage 3, GFR 30-59 ml/min: Plan: - BUN 67 increased from presumed baseline on 01/11 with creatinine 1.35 on admission, down trended - Renally dose medications as able, avoid nephrotoxic agents. - Follow on daily BMP. Plan: - Admit to med/surg. - SCDs for DVT ppx, hold on chemoppx until GI bleed is ruled out. - DNR/DNI. Admission and Anticipated Discharge Date Admission Date: January 31, 2022 Subjective Seen at bedside this morning. Has had some liquid diarrhea, continues to have poor appetite but otherwise no change. Denies fever/chills/sweats overnight. Denies abdominal pain. Continues to feel fatigued. No chest pain/chest pressure/shortness of breath. No dysuria Review of Systems Review of Systems: All systems reviewed & are unremarkable except as noted in Subjective Physical Exam Physical Exam: General: A&Ox3. Cooperative. Frail. HEENT: Atraumatic, normocephalic. PERLAA, EoM intact. Vision/hearing grossly intact Pulm: CTAB A&P. -wheezes, -rales, -rhonchi. Symmetrical chest rise. No increase work of breathing. No respiratory distress. Cardiac: RRR, -mrg. Radial pulses intact and symmetrical. Abdominal: Nontender, nondistended, soft. BS present. Skin: Diffuse, nonpruritic, nontender eschar on R foreheadd, bilateral nasolabial fold, perioral space with minimal erythema and no vesicles. Minimal change from prior Results & Data Results & Data ([facility]) Vital Signs (Past 12 Hours) Vital Signs Temp Pulse Resp BP Pulse Ox 02/03/22 07:54 36.6 C 81 16 110/71 97 PG Care Time/CCT Total # of Minutes Spent Total Time Spent with Patient: Total time spent is greater than 50% in coordination of care (as documented) at patient's floor/unit and/or counseling patient: Coding Level of Care Code 66633 Subseq Hosp Care Lvl 3 Diagnoses UGI bleed K92.2 Bacteremia R78.81 Adult failure to thrive R62.7 Breast cancer C50.912 Breast location: unspecified site of breast Estrogen receptor status: unspecified Patient sex: female Laterality: left Facial rash R21 Elevated AST (SGOT) R74.01 Hyponatremia E87.1 Pancytopenia D61.818 Hypertension I10 Hypertension type: primary hypertension CKD (chronic kidney disease) stage 3, GFR 30-59 ml/min N18.30 (1) Breast cancer Breast location: unspecified site of breast Estrogen receptor status: unspecified Patient sex: female Laterality: left Qualified Code(s): C50.912 - Malignant neoplasm of unspecified site of left female breast (2) Hypertension Hypertension type: primary hypertension Qualified Code(s): I10 - Essential (primary) hypertension
[2022-02-03] MEDS: ceFAZolin 1000MG 1,000 MG/7.5 ML SYR IV SCH (14:37)
[2022-02-03 18:07] LABS: BUN Creatinine Ratio 22.9 (10-20); Calcium 7.8 mg/dl (8.5-10.1); Creatinine Clr Calc Pharmacy 29.5 ml/min; Est GFR (Non-African American) 52.6 ml/min; Magnesium 1.6 mg/dl (1.7-2.4); Potassium 4.2 mmol/L (3.5-5.1)
[2022-02-03] MEDS: MAGNESIUM SULFATE / D5W 1 GM/100 ML BAG IV SCH ×2 (19:56→22:17)
[2022-02-04] MEDS: ceFAZolin 1000MG 1,000 MG/7.5 ML SYR IV SCH ×2 (02:53→13:29)
[2022-02-04 07:43] LABS: BUN Creatinine Ratio 21.6 (10-20); Calcium 7.6 mg/dl (8.5-10.1); Creatinine Clr Calc Pharmacy 29.4 ml/min; Est GFR (African American) 63.2 ml/min; Est GFR (Non-African American) 54.5 ml/min; Magnesium 2.2 mg/dl (1.7-2.4); Potassium 4.4 mmol/L (3.5-5.1)
[2022-02-04] MEDS: valACYclovir HCL 500 MG TABLET PO SCH (09:22)
[2022-02-04] MEDS: PANTOprazole 40 MG in SYRINGE 0 ML IV SCH ×2 (09:22→21:09)
[2022-02-04] MEDS: THIAMINE HCL 100 MG TAB PO SCH (09:23)
[2022-02-04] MEDS: MAGNESIUM OXIDE 400 MG TAB PO SCH (09:23)
[2022-02-04] MEDS: MIRTAZAPINE TAB 15 MG TAB PO SCH (09:23)
--- NOTE | 2022-02-04 10:30 | Communication Note ---
Date of Service: February 04, 2022 GI brief note afebrile, on abx for UTI, leukocytosis is thought to be from her neulasta injection. recs: tentatively plan for PEG placement tomorrow morning NPO post midnight Mykel Go MD Gastroenterology
[2022-02-04 11:47] LABS: Appearance Urine Clear (Clear); Bacteria Urine Automated Negative (Negative); Bilirubin Urine Negative (Negative); Blood Urine 2+ (Negative); Color Urine Yellow; Epithelial Cell Urine Auto >30 /lpf (0-5); Glucose Urine UA Negative (Negative); Ketones Urine Trace (Negative); Leukocyte Esterase Urine Negative (Negative); Nitrite Urine Negative (Negative); Protein Urine 1+ (Negative); RBC Urine Automated 0-4 /hpf (0-4); Specific Gravity Urine 1.018 (1.000-1.030); Urobilinogen Urine Negative (Negative); pH Urine 5.5 (4.5-7.5)
[2022-02-04] MEDS ORDERED: LOPERAMIDE HCL 2 MG CAP PO PRN (15:33)
[2022-02-04] MEDS: FLUCONAZOLE 100 MG TAB PO SCH (16:15)
[2022-02-04] MEDS: FIRST - Mouthwash BLM 119 ML PO SCH ×2 (18:33→23:44)
[2022-02-05] MEDS ORDERED: LACTATED RINGER'S 1,000 ML IV SCH
[2022-02-05] MEDS: ceFAZolin 1000MG 1,000 MG/7.5 ML SYR IV SCH ×3 (01:08→20:17)
[2022-02-05] MEDS: FIRST - Mouthwash BLM 119 ML PO SCH ×4 (05:03→22:32)
[2022-02-05] MEDS ORDERED: ceFAZolin 2000MG 2,000 MG/15 ML SYR IV ONE (07:30)
--- NOTE | 2022-02-05 07:50 | Anesthesiology Consultation ---
Date of Service February 05, 2022 Assessment & Plan (1) Encounter for pre-operative examination: Chart Review Chart Review: Acceptable Risk for Surgery, Patient NOT seen in Pre Admission Testing and direct entry midwife initiated Consults Requested none ASA ASA3 Proposed Anesthesia Anesthesia Type: MAC Risk / Benefits Reviewed With: PT / POA / Parent / Guardian, Accepts Plan and Informed Consent Obtained History Surgery Operation Date: 02/05/22 08:30 Proposed Procedures p Esophagogastroduodenoscopy with Gastric Tube Placement - Mykel Go MD Operation Date: 02/05/22 09:00 Proposed Procedures p Placement of Right Aport - Fidencio Nur MD Height/Weight Height: 5 ft 5 in Weight: 37.9 kg Allergies Allergy/AdvReac Type Severity Reaction Status Date / Time pistachio nut AdvReac Severe Red face Unverified 01/31/22 10:37 and hands ~ Throwing up Medications Home Medications Medication Instructions Recorded Confirmed Last Taken diltiazem HCl 120 mg tablet 120 mg PO BID 01/31/22 01/31/22 01/29/22 lisinopril 20 1 tab PO QAM 01/31/22 01/31/22 01/29/22 mg-hydrochlorothiazide 25 mg tablet methylprednisolone 4 mg tablets in 4 mg PO .TAPER DOSE 01/31/22 01/31/22 01/30/22 a dose pack mirtazapine 15 mg tablet 15 mg PO QAM 01/31/22 01/31/22 01/29/22 ondansetron HCl 8 mg tablet 8 mg PO Q8H PRN 01/31/22 01/31/22 Unknown prochlorperazine maleate 10 mg 10 mg PO Q6H PRN 01/31/22 01/31/22 Unknown tablet tramadol 50 mg tablet 50 mg PO Q6H PRN 01/31/22 01/31/22 Unknown Active Medications Generic Name Dose Route Start Last Admin Trade Name Freq PRN Reason Stop Dose Admin Diltiazem HCl 120 mg 01/31/22 21:00 02/01/22 08:34 Diltiazem Hcl 60 Mg Tab PO 03/02/22 20:59 120 mg BID KULWANT Administration Fluconazole 100 mg 02/04/22 15:00 02/04/22 16:15 Fluconazole 100 Mg Tab PO 02/09/22 14:59 100 mg QAM KULWANT Administration Lisinopril/HCTZ 1 tab 02/01/22 09:00 02/01/22 08:34 Lisinopril/Hctz 20/25mg 1 Tab PO 03/03/22 08:59 1 tab QAM KULWANT Administration Promethazine HCl 12.5 mg/ 50.5 mls @ 202 mls/hr 01/31/22 14:35 01/31/22 22:52 Sodium Chloride IV 03/02/22 14:34 Infused Q6H PRN Infusion Nausea uncontrolled by Zofran Pantoprazole Sodium 40 mg/ 10 mls @ 5 mls/min 01/31/22 21:00 02/04/22 21:09 Syringe IV 03/02/22 20:59 5 mls/min BID KULWANT Administration Cefazolin Sodium 1,000 mg in 7.5 mls @ 2.5 mls/min 02/03/22 14:00 02/05/22 01:08 Ancef 1000mg IV 02/17/22 13:59 2.5 mls/min Q12H KULWANT Administration Lactated Ringer's 1,000 mls @ 80 mls/hr 02/05/22 00:00 02/04/22 23:45 Lr IV 02/05/22 12:29 80 mls/hr .[id number] KULWANT Administration Loperamide HCl 2 mg 02/04/22 15:33 02/04/22 16:15 Loperamide Hcl 2 Mg Cap PO 03/06/22 15:32 2 mg BID PRN Administration Diarrhea Magnesium Oxide 400 mg 02/03/22 09:00 02/04/22 09:23 Magnesium Oxide 400 Mg Tab PO 03/05/22 08:59 400 mg QAM KULWANT Administration Mirtazapine 15 mg 02/01/22 09:00 02/04/22 09:23 Mirtazapine Tab 15 Mg Tab PO 03/03/22 08:59 15 mg QAM KULWANT Administration Multi-Ingredient Mouthwash/Gargle 5 ml 02/04/22 17:45 02/05/22 05:03 First - Mouthwash Blm 119 Ml PO 03/06/22 17:44 5 ml Q6H KULWANT Administration Ondansetron HCl 4 mg 01/31/22 14:35 01/31/22 15:58 Ondansetron Inj 2 Mg/Ml 2 Ml Vial IV 03/02/22 14:34 4 mg Q6H PRN Administration First Line for Nausea Thiamine HCl 100 mg 02/01/22 15:45 02/04/22 09:23 Thiamine Hcl 100 Mg Tab PO 03/03/22 15:44 100 mg QAM KULWANT Administration Valacyclovir HCl 1,000 mg 02/01/22 10:00 02/04/22 09:22 Valacyclovir Hcl 500 Mg Tablet PO 02/08/22 09:59 1,000 mg QAM KULWANT Administration Protocol Past Medical History Medical History Breast cancer Encounter for pre-operative examination Hypertension Social History Smoking Status: Current some day smoker Hx Alcohol Use: Yes Alcohol type: hard liquor alcohol intake frequency: a few times a week Hx Substance Use: No Physical Exam Vital Signs Last Vital Signs Temp 36.6 C 02/05/22 06:53 Pulse 87 02/05/22 06:53 Resp 16 02/05/22 06:53 BP 121/71 02/05/22 06:53 Pulse Ox 97 02/05/22 06:53 Testing Laboratory Results 02/03/22 06:19 02/04/22 06:52 PT 9.8 Seconds (9.0-12.0) 01/31/22 09:40 INR 0.9 (0.9-1.1) 01/31/22 09:40 APTT 23.9 Seconds (21.0-31.0) 01/31/22 09:40 Urine Color Yellow 02/04/22 Unknown Urine Appearance Clear (Clear) 02/04/22 Unknown Urine pH 5.5 (4.5-7.5) 02/04/22 Unknown Ur Specific [place] 1.018 (1.000-1.030) 02/04/22 Unknown Urine Protein 1+ (Negative) H 02/04/22 Unknown Urine Glucose (UA) Negative (Negative) 02/04/22 Unknown Urine Ketones Trace (Negative) H 02/04/22 Unknown Urine Nitrite Negative (Negative) 02/04/22 Unknown Ur Leukocyte Esterase Negative (Negative) 02/04/22 Unknown Urine WBC (Auto) 5-10 /hpf (0-5) H 02/04/22 Unknown Urine RBC (Auto) 0-4 /hpf (0-4) 02/04/22 Unknown U Hyaline Cast (Auto) 5-10 /lpf (0-5) H 02/04/22 Unknown U Epithel Cells (Auto) >30 /lpf (0-5) H 02/04/22 Unknown Urine Bacteria (Auto) Negative (Negative) 02/04/22 Unknown 02/02/22 21:30 Urine Culture - Preliminary Urine,Clean Catch Marcelle albicans/dubliniensis 02/01/22 19:51 Aerobic Blood Culture - Preliminary Blood No growth in Aerobic bottle after 48 hours. Anaerobic Blood Culture - Preliminary No growth in Anaerobic bottle after 48 hours. 02/01/22 19:45 Aerobic Blood Culture - Preliminary Blood No growth in Aerobic bottle after 48 hours. Anaerobic Blood Culture - Preliminary No growth in Anaerobic bottle after 48 hours. 01/31/22 10:20 Aerobic Blood Culture - Final Blood Escherichia coli Anaerobic Blood Culture - Final 01/31/22 09:40 Aerobic Blood Culture - Preliminary Blood No growth in Aerobic bottle after 48 hours. Anaerobic Blood Culture - Preliminary No growth in Anaerobic bottle after 48 hours. Electrocardiogram Date: 01/31/22 Normal sinus rhythm Possible Left atrial enlargement Low voltage QRS Anteroseptal infarct , age undetermined Nonspecific T wave abnormality Abnormal ECG When compared with ECG of 13-MAY-2000 14:03, Questionable change in QRS duration Minimal criteria for Anteroseptal infarct are now Present Confirmed by Catracho Quesada ([id number]) on 02/01/2022 11:38:01 PM Chest X-Ray Date: 01/31/22 FINDINGS: No lines and tubes are seen. The cardiomediastinal silhouette is normal. The lungs are clear. No evidence of pleural effusion or pneumothorax. IMPRESSION: No acute chest disease. Echocardiogram Date: 01/24/22 EF: 60-65% LV Function: normal RWMA: + none Other Testing PET Scan 01/24/22: IMPRESSION: 1. Marked FDG uptake within the large left breast mass consistent with primary malignancy. FDG uptake within a smaller adjacent left lateral breast mass consistent with an additional lesion. Asymmetric left breast skin thickening with diffuse edema within the left breast, left chest wall, left axilla and left flank. These findings are nonspecific. Inflammatory breast cancer is within the differential although the extent of edema is greater than expected. 2. FDG uptake within multiple left axillary lymph nodes consistent with vicky spread of disease. 3. FDG uptake within a mildly enlarged left internal mammary chain lymph node consistent with vicky spread of disease. 4. No evidence of metastatic disease within the abdomen or pelvis. 5. 6 mm groundglass right lower lobe nodule. This is indeterminate but probably does not reflect metastatic disease. Follow up chest CT in 6 months is recommended to ensure stability.
[2022-02-05] MEDS ORDERED: LIDOCAINE 2% 2 ML VIAL/AMP(20MG/ML) INFIL ONE (08:08)
[2022-02-05] MEDS ORDERED: PROPOFOL IV EMULSION 10 MG/ML 20 ML VIAL IV ONE (08:08)
--- NOTE | 2022-02-05 08:32 | History & Physical Bridge Note ---
Date of Service February 05, 2022 History & Physical Bridge Note I have examined the patient, reviewed the History & Physical and in the interval since the performance of the History & Physical I have noted the following changes of clinical significance: no changes noted Proceed with EGD and PEG risks/benefits and procedure discussed with patient, who agrees to proceed
[2022-02-05] MEDS ORDERED: ONDANSETRON INJ 2 MG/ML 2 ML VIAL ONE (08:41)
[2022-02-05] MEDS ORDERED: fentaNYL citrate 100 MCG/2 ML VIAL ONE (08:41)
--- NOTE | 2022-02-05 09:12 | GI REPORT ---
Patient Name: Hayley Benson Procedure Date: 02/05/2022 8:14 AM Date of : 1950 Admit Type: Inpatient Age: 71 Gender: Female Attending MD: Mykel Go MD Procedure: Upper GI endoscopy Providers: Mykel Go MD Referring MD: Refugio Grace Iv, M.d. Indications: Place PEG to improve nutrition in patient with prolonged severe illness Medicines: Monitored Anesthesia Care Complications: No immediate complications. Estimated blood loss: None. Estimated Blood Loss: Estimated blood loss: none. Procedure: Pre-Anesthesia Assessment: - Prior Anticoagulants: The patient has taken no previous anticoagulant or antiplatelet agents. - Prophylactic Antibiotics: The patient requires prophylactic antibiotics for planned PEG placement. The patient received antibiotic therapy today, before the procedure started. - ASA Grade Assessment: III - A patient with severe systemic disease. After obtaining informed consent, the endoscope was passed under direct vision. Throughout the procedure, the patient's blood pressure, pulse, and oxygen saturations were monitored continuously. The Endoscope was introduced through the mouth, and advanced to the second part of duodenum. The upper GI endoscopy was accomplished without difficulty. The patient tolerated the procedure well. Findings: The examined esophagus was normal. The entire examined stomach was normal. The patient was placed in the supine position for PEG placement. The stomach was insufflated to appose gastric and abdominal pederson. A site was located in the body of the stomach with excellent transillumination for placement. The abdominal wall was marked and prepped in a sterile manner. The area was anesthetized with 5 mL of 0.5% lidocaine. The trocar needle was introduced through the abdominal wall and into the stomach under direct endoscopic view. A snare was introduced through the endoscope and opened in the gastric lumen. The guide wire was passed through the trocar and into the open snare. The snare was closed around the guide wire. The endoscope and snare were removed, pulling the wire out through the mouth. A skin incision was made at the site of needle insertion. The externally removable 20 Fr Manuel-TransEngen gastrostomy tube was lubricated. The G-tube was tied to the guide wire and pulled through the mouth and into the stomach. The trocar needle was removed, and the gastrostomy tube was pulled out from the stomach through the skin. The external bumper was attached to the gastrostomy tube, and the tube was cut to remove the guide wire. The final position of the gastrostomy tube was confirmed by relook endoscopy, and skin marking noted to be 2 cm at the external bumper. The final tension and compression of the abdominal wall by the PEG tube and external bumper were checked and revealed that the bumper was loose and lightly touching the skin and that the PEG balloon was loose and lightly touching the stomach. The feeding tube was capped, and the tube site cleaned and dressed. Diffuse mild mucosal changes characterized by discoloration and erythema were found in the second portion of the duodenum. Biopsies for histology were taken with a cold forceps for evaluation of celiac disease. Estimated blood loss: none. Impression: - Normal esophagus. - Normal stomach. - Mucosal changes in the duodenum. Biopsied. - An externally removable PEG placement was successfully completed. Recommendation: - Return patient to [facility] for ongoing care. - Await pathology results. - Please follow the post-PEG recommendations including: Nutrition consult for formula and volume, change dressing once per day, NPO x4 hrs then water today, may use PEG today for meds and water, may use PEG tomorrow for feedings and flush PEG daily with 60 ml water. Mykel Go MD 02/05/2022 9:11:57 AM This report has been signed electronically. Note Initiated On: 02/05/2022 8:14 AM Number of Addenda: 0 I attest to the content of the Intraoperative Record and orders documented therein, exceptions below {[id number]}
[2022-02-05] MEDS: valACYclovir HCL 500 MG TABLET PO SCH (09:57)
[2022-02-05] MEDS: MIRTAZAPINE TAB 15 MG TAB PO SCH (09:57)
[2022-02-05] MEDS: MAGNESIUM OXIDE 400 MG TAB PO SCH (09:57)
[2022-02-05] MEDS: PANTOprazole 40 MG in SYRINGE 0 ML IV SCH ×2 (09:57→20:17)
[2022-02-05] MEDS: THIAMINE HCL 100 MG TAB PO SCH (09:58)
[2022-02-05] MEDS: FLUCONAZOLE 100 MG TAB PO SCH (09:58)
[2022-02-05] MEDS: HYDROmorphone INJ 0.5 MG/0.5 ML SYR IV PRN (13:47)
--- NOTE | 2022-02-05 14:36 | Hospitalist Progress Note ---
Date of Service February 05, 2022 Assessment & Plan (1) UGI bleed: Plan: - Suspected, vs chemo. BUN increased to 67, was 50 on 01/24. With reports of black, tarry stools over the past few days. Hgb 10.2, was 11.6 on 01/24. - Continue Protonix 40 twice daily - Methylpred held Gi consulted. EGD 02/05: Normal esophagus. Normal stomach. Mucosal changes in duodenum biopsied and pending path. PEG placement completed. N.p.o. for 4 hours procedure then water, may use PEG today for meds and water and for feeding starting tomorrow. Continue to trend hemoglobin daily (2) Bacteremia: Plan: Patient with rapidly uptrending leukocytosis/ and 02/02. Likely due to Neulasta, but given potential translocation and initial gram-negative bacteremia below we will treat as real and evaluate Restarted empirically on cefepime evening of 02/01 given uptrending leukocytosis and acutely worsened hypotension concerning for potential early sepsis Surveillance cultures ordered Patient denies cough, shortness of breath, difficulty breathing, abdominal pain, urinary symptoms. Note she has had the rash on her face, otherwise denies any symptoms of infection Blood cultures positive for gram-negative bacilli 09/26. Repeat UA ordered, 01/31 without bacteria/LE. Surveillance cultures ordered Given concern for abdominal source history of cancer CT obtained with IV contrast. Did discuss with GI, recommended to add oral contrast as well. - CT-A/P: Liquid stool is seen in the rectum compatible with history of diarrhea. No additional abnormality is seen. Stool pathogen PCR panel negative Given above suspect bacteremia is likely due to gut translocation, ongoing abdominal infection at this time. Based on E. coli sensitivities will narrow to cefazolin and continue for total 7-day course (until 02/08) given patient's risk. Extremely high white count is likely predominantly due to Neulasta. Repeat blood cultures negative UA initially with 12 pinpoint growth reintubated and with Marcelle. Patient had no symptoms of UTI, cath UA was obtained prior to starting fluconazole. While she is not neutropenic does not meet strict guidelines for treatment of Marcelle is a high risk undergoing chemo so treated empirically while pending a clean cath UA. Cath specimen was without growth or yeast, suspect normal skin enma contaminant on initial culture. Fluconazole discontinued 02/06. If patient develops symptoms of UTI reculture and treat at that point (3) Adult failure to thrive: Plan: - Global weakness, fatigue, loss of appetite, suspect this is due to left breast cancer with first round of chemotherapy. - Dietitian consulted, appreciate their recommendations. PEG placed 02/05. Anticipate starting feeds continuous tomorrow, may use for meds and water 02/05 as noted above - Port placement pending Hypokalemia Persistent despite repletion yesterday, poor p.o. intake, and in setting of some diarrhea Potassium 2.6 02/03, magnesium normal. K normalized with repletion Continue daily magnesium supplementation, defer high-dose for potential to worsen diarrhea (4) Breast cancer: Plan: - Stage 3 LEFT breast cancer ER/OK-, HER-2+ - Diagnosed on diagnostic mammogram 1 month ago. - Chemo regimen: Docetaxel, carboplatin, trastuzumab, pertuzumab [id number] x6 cycles possibly followed up with surgery. - First chemo was 01/25 - PET/brain MRI for full staging on 01/24, revealed 2 left breast masses, axiliary and L internal mammary lymph node involvement, no metastatic dz to abdomen or pelvis, 6 mm ground glass RLL nodule indeterminant, not suspected to be met dz. Marinol for appetite stimulation - Echo 01/24--> EF 60-65%, small pericardial effusion - Dr. Morgan consulted as above. -Patient has completed PEG tube placement and is clinically improving. Reaching out to surgery to reassess for port placement this week. (5) Facial rash: Plan: - Developed several days after first chemotherapy treatment. Most prominent on left forehead, although also involves bilateral nasolabial folds and some on the right side of face. -Possibly consistent with shingles, although not in a strict dermatomal pattern Recommended to treat empirically with valacyclovir, started. 7-day course complete 02/08/2022. Appreciate recommendations (6) Elevated AST (SGOT): Plan: - AST 114, trending up since 01/11. ALT within normal limits, but also trending up since 01/11. T bili 0.5, alk phos 68. - Patient is not having any abdominal pain. PET scan did not show any metastatic disease to liver. -Trend CMP (7) Hyponatremia: Plan: - 132, chronic since 01/11 - Suspect may be due to decreased po intake, diarrhea vs SIADH induced by cancer, chemotherapy. - Received 2L IVF in ED. continue IV FM -Trend BMP (8) Pancytopenia: Plan: - In setting of chemo on 01/25, labs normocytic prior to. Received Neulasta following chemo. - Continue to follow on daily CBC. #Leukocytosis likely predominantly due to Neulasta treatment (9) Hypertension: Plan: - On diltiazem and lisinopril/HCTZ, blood pressure remains low normal. Defer these at this time - Continue to monitor BP. (10) CKD (chronic kidney disease) stage 3, GFR 30-59 ml/min: Plan: - BUN 67 increased from presumed baseline on 01/11 with creatinine 1.35 on admission, down trended - Renally dose medications as able, avoid nephrotoxic agents. - Follow on daily BMP. Plan: - Admit to med/surg. - SCDs for DVT ppx, hold on chemoppx until GI bleed is ruled out. - DNR/DNI. Admission and Anticipated Discharge Date Admission Date: January 31, 2022 Subjective Seen at bedside post procedure. Patient reports she feels well, and actually has minimal pain at her site. Denies fever, chills, sweats, dysuria, lightheadedness, dizziness, bleeding. Does continue to feel globally weak, although is a little more hopeful and improved than prior days. Reviewed nutrition goals and approach to her PEG tube, to which patient is agreeable. Anticipate starting continuous feeds tomorrow and then possible move to bolus versus overnight feeds based on tolerance. Patient is agreeable to this. Review of Systems Review of Systems: All systems reviewed & are unremarkable except as noted in Subjective Physical Exam Physical Exam: General: A&Ox3. Cooperative. Frail. HEENT: Atraumatic, normocephalic. PERLAA, EoM intact. Vision/hearing grossly intact Pulm: CTAB A&P. -wheezes, -rales, -rhonchi. Symmetrical chest rise. No increase work of breathing. No respiratory distress. Cardiac: RRR, -mrg. Radial pulses intact and symmetrical. Abdominal: PEG in place with overlying surgical dressing C/C/I. inimally and appropriately tender at surgical site, nondistended, soft. BS present. Skin: Diffuse, nonpruritic, nontender eschar on R foreheadd, bilateral nasolabial fold, perioral space with minimal erythema and no vesicles. Gradually improving from prior exam Results & Data Results & Data ([facility]) Vital Signs (Past 12 Hours) Vital Signs Temp Pulse Pulse Resp BP Pulse Ox 02/05/22 11:40 36.3 C L 78 20 123/76 98 02/05/22 10:22 36.3 C L 70 16 127/72 91 02/05/22 09:43 36.3 C L 78 14 129/72 100 02/05/22 09:40 78 12 123/63 99 02/05/22 09:25 78 12 123/65 97 02/05/22 09:10 85 12 97/65 L 99 02/05/22 07:54 37.1 C 95 H 20 136/73 97 02/05/22 06:53 36.6 C 87 16 121/71 97 PG Care Time/CCT Total # of Minutes Spent Total Time Spent with Patient: Total time spent is greater than 50% in coordination of care (as documented) at patient's floor/unit and/or counseling patient: Coding Level of Care Code 92300 Subseq Hosp Care Lvl 3 Diagnoses UGI bleed K92.2 Bacteremia R78.81 Adult failure to thrive R62.7 Breast cancer C50.912 Breast location: unspecified site of breast Estrogen receptor status: unspecified Patient sex: female Laterality: left Facial rash R21 Elevated AST (SGOT) R74.01 Hyponatremia E87.1 Pancytopenia D61.818 Hypertension I10 Hypertension type: primary hypertension CKD (chronic kidney disease) stage 3, GFR 30-59 ml/min N18.30 (1) Breast cancer Breast location: unspecified site of breast Estrogen receptor status: unspecified Patient sex: female Laterality: left Qualified Code(s): C50.912 - Malignant neoplasm of unspecified site of left female breast (2) Hypertension Hypertension type: primary hypertension Qualified Code(s): I10 - Essential (primary) hypertension
--- NOTE | 2022-02-05 15:06 | Anesthesiology Progress Note ---
Date of Service February 05, 2022 Anesthesia Post Procedure Vital Signs Vital Signs: Temp Pulse Pulse Resp BP Pulse Ox 02/05/22 11:40 36.3 C L 78 20 123/76 98 02/05/22 10:22 36.3 C L 70 16 127/72 91 02/05/22 09:43 36.3 C L 78 14 129/72 100 02/05/22 09:40 78 12 123/63 99 02/05/22 09:25 78 12 123/65 97 02/05/22 09:10 85 12 97/65 L 99 02/05/22 07:54 37.1 C 95 H 20 136/73 97 02/05/22 06:53 36.6 C 87 16 121/71 97 02/04/22 21:54 36.6 C 83 16 112/55 L 95 02/04/22 15:53 99 H 16 120/61 97 Pain Intensity Hip: Pain Intensity: 7 Transfer of Care Handoff Completed per policy Notes Mental Status: alert / awake / arousable and participated in evaluation Patient Amnestic to Procedure: Yes Nausea / Vomiting: adequately controlled Pain: adequately controlled Airway Patency, RR, SpO2: stable & adequate BP & HR: stable & adequate Hydration State: stable & adequate Anesthetic Complications: no major complications apparent and Pt Satisfied with anesthetic care
[2022-02-05 15:36] LABS: BUN Creatinine Ratio 18.3 (10-20); Calcium 7.7 mg/dl (8.5-10.1); Creatinine Clr Calc Pharmacy 28.8 ml/min; Est GFR (African American) 61.7 ml/min; Est GFR (Non-African American) 53.3 ml/min; Potassium 3.8 mmol/L (3.5-5.1)
[2022-02-05] MEDS: TUBE FEEDING WATER FLUSH GT SCH (23:42)
[2022-02-06] MEDS: HYDROmorphone INJ 0.5 MG/0.5 ML SYR IV PRN (03:10)
[2022-02-06] MEDS: TUBE FEEDING WATER FLUSH GT SCH ×6 (04:59→23:15)
[2022-02-06 08:03] LABS: Hematocrit (blood only) 24.9 % (37-47); Hemoglobin 8.2 g/dL (12.0-16.0); Mean Corpuscular Hemoglobin 31.9 pg (25-34); Mean Corpuscular Hgb Conc 32.9 g/dL (32-36); Mean Corpuscular Volume 96.9 fL (80-100); Platelet Count 183 K/uL (130-400); RDW Coefficient of Variation 13.2 % (11.5-14.5); RDW Standard Deviation 46.1 fL (36.4-46.3); Red Blood Count 2.57 M/uL (4.2-5.4); White Blood Count 28.44 K/uL (4.8-10.8)
[2022-02-06] MEDS: PEPTAMEN 1.5 CAL 1,000 ML BAG PEG SCH (08:21)
[2022-02-06] MEDS: FIRST - Mouthwash BLM 119 ML PO SCH ×4 (08:21→23:14)
[2022-02-06 08:31] LABS: ALC (manual) 1.22 K/uL (1.2-3.4); ANC (manual) 26.22 K/uL (1.4-6.5); Basophils # (manual) 0.26 K/uL (0-0.2); Basophils % (manual) 0.9 %; Lymphocytes # (manual) 1.22 K/uL (1.2-3.4); Lymphocytes % (manual) 4.3 %; Monocytes # (manual) 0.74 K/uL (0.11-0.59); Monocytes % (manual) 2.6 %; Neutrophils # (manual) 26.22 K/uL (1.4-6.5); Neutrophils % (manual) 92.2 %; Toxic Granulation 1+
[2022-02-06 08:55] LABS: BUN Creatinine Ratio 16.9 (10-20); Calcium 7.8 mg/dl (8.5-10.1); Creatinine Clr Calc Pharmacy 25.4 ml/min; Est GFR (Non-African American) 45.7 ml/min; Potassium 3.8 mmol/L (3.5-5.1)
[2022-02-06] MEDS: MIRTAZAPINE TAB 15 MG TAB PO SCH (10:39)
[2022-02-06] MEDS: PANTOprazole 40 MG in SYRINGE 0 ML IV SCH ×2 (10:39→21:37)
[2022-02-06] MEDS: MAGNESIUM OXIDE 400 MG TAB PO SCH (10:39)
[2022-02-06] MEDS: valACYclovir HCL 500 MG TABLET PO SCH (10:42)
[2022-02-06] MEDS: THIAMINE HCL 100 MG TAB PO SCH (10:42)
[2022-02-06] MEDS: ceFAZolin 1000MG 1,000 MG/7.5 ML SYR IV SCH ×2 (10:43→21:41)
--- NOTE | 2022-02-06 12:26 | Hospitalist Progress Note ---
Date of Service February 06, 2022 Assessment & Plan (1) UGI bleed: Plan: - Suspected, vs chemo. BUN increased to 67, was 50 on 01/24. With reports of black, tarry stools over the past few days [employer]. Hgb 10.2, was 11.6 on 01/24. - Continue Protonix 40 twice daily - Methylpred held Gi consulted. EGD 02/05: Normal esophagus. Normal stomach. Mucosal changes in duodenum biopsied and pending path. PEG placement completed. Started tube feeds 02/06 Hgb uptrending 02/06 (2) Bacteremia: Plan: Patient with rapidly uptrending leukocytosis/ and 02/02. Likely due to Neulasta, but given potential translocation and initial gram-negative bacteremia below we will treat as real and evaluate Restarted empirically on cefepime evening of 02/01 given uptrending leukocytosis and acutely worsened hypotension concerning for potential early sepsis Surveillance cultures ordered Patient denies cough, shortness of breath, difficulty breathing, abdominal pain, urinary symptoms. Note she has had the rash on her face, otherwise denies any symptoms of infection Blood cultures positive for gram-negative bacilli 09/26. Repeat UA ordered, 01/31 without bacteria/LE. Surveillance cultures ngtd Given concern for abdominal source history of cancer CT obtained with IV contrast. Did discuss with GI, recommended to add oral contrast as well. - CT-A/P: Liquid stool is seen in the rectum compatible with history of diarrhea. No additional abnormality is seen. Stool pathogen PCR panel negative Given above suspect bacteremia is likely due to gut translocation, ongoing a bdominal infection at this time. Based on E. coli sensitivities will narrow to cefazolin and continue for total 7-14day course (until 02/08-02/15) based on progression given patient's risk. Extremely high white count is likely predominantly due to Neulasta. Downtrending. Repeat blood cultures negative UA initially with 12 pinpoint growth reintubated and with Marcelle. Patient had no symptoms of UTI. While she is not neutropenic does not meet strict guidelines for treatment of Marcelle is a high risk undergoing chemo so treated empirically while pending a clean cath UA. Cath specimen (prior to fluconazole tx) was without growth or yeast, suspect normal skin enma contaminant on initial culture. Fluconazole discontinued 02/06. If patient develops symptoms of UTI reculture and treat at that point (3) Adult failure to thrive: Plan: - Global weakness, fatigue, loss of appetite, suspect this is due to left breast cancer with first round of chemotherapy. - Dietitian consulted, appreciate their recommendations. PEG placed 02/05. Continuous feeds started 02/06, convert to nocturnal vs bolus based on tolerance. If tolerating well anticipate d/c to outpt followup to onc, and surgery f/u for port evaluation after completion of abx for BN bacteremia. - Port placement pending as outpt Female, 37.9 kg, 5 foot 5 inches, 71 years old. Estimated caloric needs [id number] kcal, 68 g protein, 2694-5847 cc fluid. Recommended for Peptamen 1.5 continuous 10 cc/h and increasing by 10 cc/h to initial goal rate of 30. This will achieve approximately 75% of nutrition needs, goal rate of 40/h for 100%. Continue thiamine daily x7 days. Appreciate nutrition recs. Patient tolerating well at bedside visit Hypokalemia Potassium 2.6 02/03, magnesium normal. K normalized with repletion Continue daily magnesium supplementation, defer high-dose oral and use PO daily + IV prn 2/2 for potential to worsen diarrhea (4) Breast cancer: Plan: - Stage 3 LEFT breast cancer ER/CT-, HER-2+ - Diagnosed on diagnostic mammogram 1 month ago. - Chemo regimen: Docetaxel, carboplatin, trastuzumab, pertuzumab [id number] x6 cycles possibly followed up with surgery. - First chemo was 01/25 - PET/brain MRI for full staging on 01/24, revealed 2 left breast masses, axiliary and L internal mammary lymph node involvement, no metastatic dz to abdomen or pelvis, 6 mm ground glass RLL nodule indeterminant, not suspected to be met dz. Marinol for appetite stimulation - Echo 01/24--> EF 60-65%, small pericardial effusion - Dr. Morgan consulted as above. -Patient has completed PEG tube placement and is clinically improving. Port placement f/u as outpt after completing bacteremia abx as noted. (5) Facial rash: Plan: - Developed several days after first chemotherapy treatment. Most prominent on left forehead, although also involves bilateral nasolabial folds and some on the right side of face. -Possibly consistent with shingles, although not in a strict dermatomal pattern Recommended to treat empirically with valacyclovir, started. 7-day course complete 02/08/2022. Appreciate recommendations - Improving (6) Elevated AST (SGOT): Plan: - AST 114, trending up since 01/11. ALT within normal limits, but also trending up since 01/11. T bili 0.5, alk phos 68. - Patient is not having any abdominal pain. PET scan did not show any metastatic disease to liver. - Trend (7) Hyponatremia: Plan: - 132, chronic since 01/11 - Suspect may be due to decreased po intake, diarrhea vs SIADH induced by cancer, chemotherapy. - Received 2L IVF in ED and fluids during admit - 135 02/06, no acute intervention -Trend BMP (8) Pancytopenia: Plan: - In setting of chemo on 01/25, labs normocytic prior to. Received Neulasta following chemo. - Continue to follow on daily CBC. #Leukocytosis likely predominantly due to Neulasta treatment (9) Hypertension: Plan: - On diltiazem and lisinopril/HCTZ, blood pressure remains low normal. Defer these at this time - Continue to monitor BP. (10) CKD (chronic kidney disease) stage 3, GFR 30-59 ml/min: Plan: - BUN 67 increased from presumed baseline on 01/11 with creatinine 1.35 on admission, down trended - Renally dose medications as able, avoid nephrotoxic agents. - Follow on daily BMP. (11) Antineoplastic chemotherapy induced pancytopenia: Plan: - w/ neutrophilia following neulasta (12) Severe protein-calorie malnutrition: Plan: - s/p PEG, 2/2 poor intake, chemo, cancer as noted Plan: - Admit to med/surg. - SCDs for DVT ppx, chemoppx held for anemia/GIB - DNR/DNI. Admission and Anticipated Discharge Date Admission Date: January 31, 2022 Subjective Patient is seen at the bedside this morning. She has no tenderness at her abdominal PEG site and feels she is tolerating initiation of continuous feeds very well. She has had some mild pain overnight at the PEG site which improved, and has been adequately treated with as needed pain control. She reports she feels more energetic and more hopeful. She feels her facial rash is improving, and is now looking forward to progressing to outpatient follow-up. She denies chest pain, chest pressure, lightheadedness/dizziness overnight. No shortness of breath. No nausea/vomiting. Discussed nutrition requirements and goals for continuous feeds, and CM working on setting up pump and home materials in anticipation of discharge Review of Systems Review of Systems: All systems reviewed & are unremarkable except as noted in Subjective Physical Exam Physical Exam: General: A&Ox3. Cooperative. Thin. HEENT: Atraumatic, normocephalic. PERLAA, EoM intact. Vision/hearing grossly intact Pulm: CTAB A&P. -wheezes, -rales, -rhonchi. Symmetrical chest rise. No increase work of breathing. No respiratory distress. Cardiac: RRR, -mrg. Radial pulses intact and symmetrical. Abdominal: PEG in place, no surrounding erythema, no discharge. Functioning appropriately on 10 cc rate of enteral nutrition. Abdomen otherwise nondistended, soft. Skin: Diffuse, nonpruritic, nontender eschar on R forehead and nose. Nasolabial fold lesions nearly completely resolved, forehead lesions greatly improved. Results & Data Results & Data ([facility]) Vital Signs (Past 12 Hours) Vital Signs Temp Pulse Resp BP Pulse Ox 02/06/22 08:02 36.7 C 97 H 18 134/67 99 PG Care Time/CCT Total # of Minutes Spent Total Time Spent with Patient: Total time spent is greater than 50% in coordination of care (as documented) at patient's floor/unit and/or counseling patient: Coding Level of Care Code 32805 Subseq Hosp Care Lvl 3 Diagnoses UGI bleed K92.2 Bacteremia R78.81 Adult failure to thrive R62.7 Breast cancer C50.912 Breast location: unspecified site of breast Estrogen receptor status: unspecified Laterality: left Patient sex: female Facial rash R21 Elevated AST (SGOT) R74.01 Hyponatremia E87.1 Pancytopenia D61.818 Hypertension I10 Hypertension type: primary hypertension CKD (chronic kidney disease) stage 3, GFR 30-59 ml/min N18.30 Antineoplastic chemotherapy induced pancytopenia D61.810; T45.1X5A Severe protein-calorie malnutrition E43 (1) Breast cancer Breast location: unspecified site of breast Estrogen receptor status: unspecified Laterality: left Patient sex: female Qualified Code(s): C50.912 - Malignant neoplasm of unspecified site of left female breast (2) Hypertension Hypertension type: primary hypertension Qualified Code(s): I10 - Essential (primary) hypertension
[2022-02-06] MEDS ORDERED: MELATONIN 3 MG TAB PO ONE (22:31)
[2022-02-07] MEDS: TUBE FEEDING WATER FLUSH GT SCH ×6 (05:10→23:38)
[2022-02-07] MEDS: FIRST - Mouthwash BLM 119 ML PO SCH ×4 (05:36→23:37)
[2022-02-07 07:51] LABS: Hematocrit (blood only) 21.8 % (37-47); Hemoglobin 7.4 g/dL (12.0-16.0); Mean Corpuscular Hemoglobin 32.5 pg (25-34); Mean Corpuscular Hgb Conc 33.9 g/dL (32-36); Mean Corpuscular Volume 95.6 fL (80-100); Mean Platelet Volume 10.8 fL (7.4-10.4); Platelet Count 144 K/uL (130-400); RDW Coefficient of Variation 12.8 % (11.5-14.5); RDW Standard Deviation 44.1 fL (36.4-46.3); Red Blood Count 2.28 M/uL (4.2-5.4)
[2022-02-07 08:13] LABS: Basophils # (auto) 0.02 K/uL (0-0.2); Basophils % (auto) 0.1 %; Dohle Bodies 1+; Eosinophils # (auto) 0.06 K/uL (0-0.5); Eosinophils % (auto) 0.2 %; Immature Granulocytes # (auto) 0.26 K/uL (0.00-0.02); Immature Granulocytes % (auto) 1.1 %; Lymphocytes # (auto) 1.15 K/uL (1.2-3.4); Lymphocytes % (auto) 4.7 %; Monocytes # (auto) 0.81 K/uL (0.11-0.59); Monocytes % (auto) 3.3 %; Neutrophils % (auto) 90.6 %
[2022-02-07 08:19] LABS: BUN Creatinine Ratio 14.2 (10-20); Calcium 7.7 mg/dl (8.5-10.1); Creatinine Clr Calc Pharmacy 28.2 ml/min; Est GFR (African American) 60.3 ml/min; Potassium 3.3 mmol/L (3.5-5.1)
--- NOTE | 2022-02-07 08:32 | Hospitalist Progress Note ---
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 EGD did not support acute bleeding - Continue Protonix 40 twice daily - Methylpred held Gi consulted. EGD 02/05: Normal esophagus. Normal stomach. Mucosal changes in duodenum biopsied and pending path. PEG placement completed. Started tube feeds 02/06, transition to nocturnal feeding 02/07 (2) Bacteremia: Plan: Patient with rapidly uptrending leukocytosis/12 and 02/02. Initially felt due to Neulasta Restarted empirically on cefepime evening of 02/01 given uptrending leukocytosis and acutely worsened hypotension concerning for potential early sepsis Blood cultures positive for gram-negative bacilli 09/26. Repeat UA ordered, 01/31 without bacteria/LE. Surveillance cultures ngtd Given concern for abdominal source history of cancer CT obtained with IV contrast. - CT-A/P: Liquid stool is seen in the rectum compatible with history of diarrhea. No additional abnormality is seen. Stool pathogen PCR panel negative Given above suspect bacteremia is likely due to gut translocation, - E. coli sensitivities did narrow to cefazolin and continue for total 7- day course, until 02/08 for gram-negative bacteremia UA initially with 12 pinpoint growth reintubated and with Marcelle. . Fluco nazole discontinued 02/06. If patient develops symptoms of UTI reculture and treat at that point (3) Adult failure to thrive: Plan: - Global weakness, fatigue, loss of appetite, suspect this is due to left breast cancer with chemotherapy. - Dietitian consulted, appreciate their recommendations. PEG placed 02/05. Continuous feeds started 02/06, convert to nocturnal -d/c to outpt followup to onc, and surgery f/u for port evaluation after completion of abx for BN bacteremia. - Port placement pending as outpt Mild to moderate protein calorie malnutrition Female, 37.9 kg, 5 foot 5 inches, 71 years old. Estimated caloric needs [id number] kcal, 68 g protein, 4543-9729 cc fluid. Recommended for Peptamen 1.5 continuous 10 cc/h and increasing by 10 cc/h to initial goal rate of 30. This will achieve approximately 75% of nutrition needs, goal rate of 40/h for 100%. Continue thiamine daily x7 days. Appreciate nutrition recs. Patient tolerating well at bedside visit Hypokalemia Potassium 2.6 02/03, magnesium normal. K normalized with repletion Continue daily magnesium supplementation, defer high-dose oral and use PO daily + IV prn /2 for potential to worsen diarrhea (4) Breast cancer: Plan: - Stage 3 LEFT breast cancer ER/MD-, HER-2+ - Diagnosed on diagnostic mammogram 1 month ago. - Chemo regimen: Docetaxel, carboplatin, trastuzumab, pertuzumab [id number] x6 cycles possibly followed up with surgery. - First chemo was 01/25 chemo additionally plan for 03-14 - PET/brain MRI for full staging on 01/24, revealed 2 left breast masses, axiliary and L internal mammary lymph node involvement, no metastatic dz to abdomen or pelvis, 6 mm ground glass RLL nodule indeterminant, not suspected to be met dz. Marinol for appetite stimulation - Echo 01/24--> EF 60-65%, small pericardial effusion - Dr. Morgan consulted as above. -Patient has completed PEG tube placement and is clinically improving. Port placement as outpt after completing bacteremia abx as noted. (5) Facial rash: Plan: - Developed several days after first chemotherapy treatment. Most prominent on left forehead, although also involves bilateral nasolabial folds and some on the right side of face. -Possibly consistent with shingles, although not in a strict dermatomal pattern Recommended to treat empirically with valacyclovir, started. 7-day course complete 02/08/2022. Appreciate recommendations - Improving (6) Elevated AST (SGOT): Plan: - AST 114, trending up since 01/11. ALT within normal limits, but also trending up since 01/11. T bili 0.5, alk phos 68. - Patient is not having any abdominal pain. PET scan did not show any metastatic disease to liver. - (7) Hyponatremia: Plan: resolved (8) Pancytopenia: Plan: - secondary to chemotherapy #Leukocytosis likely predominantly due to Neulasta treatment (9) Hypertension: Plan: - diltiazem and lisinopril/HCTZ, on hold due to low blood pressure (10) CKD (chronic kidney disease) stage 3, GFR 30-59 ml/min: Plan: - BUN 67 increased from presumed baseline on 01/11 with creatinine 1.35 on admission, down trended (11) Antineoplastic chemotherapy induced pancytopenia: Plan: - w/ neutrophilia following neulasta (12) Severe protein-calorie malnutrition: Plan: - s/p PEG, 2/2 poor intake, chemo, cancer as noted Plan: - - SCDs for DVT ppx, chemoppx held for anemia/GIB - DNR/DNI. Admission and Anticipated Discharge Date Admission Date: January 31, 2022 Subjective pt was seen in company of her daughter, also with Dr Parra in the room to discuss upcoming chemotherapy. Pt has many concerns and is anxious about many things, mostly concerned about sleeping etc. daughter seems satisfied about meeting with Dr Parra regarding the upcoming chemotherapy planned Review of Systems Review of Systems: Mild distress and anxiety, continued fatigued no headache, no visual changes no speech or swallowing issues no chest pain, pressure or palpitations no shortness of breath, cough or wheezes some pain at peg site, no redness no dysuria, hematuria or frequency no focal joint pain or swelling no back pain, CVA tenderness or radicular pain no bruising, bleeding or rashes no focal signs of weakness or numbness or altered sensation no complaints of anxiety or depression. Physical Exam Physical Exam: The patient appeared underweight BMI 13, admission protein and albumin are low Vital signs as documented. Head exam is normocephalic atraumatic Neck is without JVD, thyromegaly, or carotid bruits. Lungs are clear to auscultation, no focal loss of breath sounds Cardiac exam, Rhythm is regular.. No murmurs, rubs or gallops. Abdominal exam reveals normal bowel sounds, soft non tender, PEG is in the upper left quadrant near the midline Extremities are nonedematous and both pedal pulses are present Neurologic exam is alert and oriented, no focal loss of strength or sensation Skin is with healing rashes that were felt to be consistent with zoster Psychologically is without concerns for anxiety or depression.. Results & Data Results & Data ([facility]) Vital Signs (Past 12 Hours) Vital Signs Temp Pulse Resp BP Pulse Ox 02/07/22 07:06 98.1 F 80 18 137/73 93 02/06/22 23:59 97.7 F 83 16 120/89 95 PG Care Time/CCT Total # of Minutes Spent Total Time Spent with Patient: Total time spent is greater than 50% in coordination of care (as documented) at patient's floor/unit and/or counseling patient: Coding Diagnoses UGI bleed K92.2 Bacteremia R78.81 Adult failure to thrive R62.7 Breast cancer C50.912 Breast location: unspecified site of breast Estrogen receptor status: unspecified Laterality: left Patient sex: female Facial rash R21 Elevated AST (SGOT) R74.01 Hyponatremia E87.1 Pancytopenia D61.818 Hypertension I10 Hypertension type: primary hypertension CKD (chronic kidney disease) stage 3, GFR 30-59 ml/min N18.30 Antineoplastic chemotherapy induced pancytopenia D61.810; T45.1X5A Severe protein-calorie malnutrition E43 (1) Breast cancer Breast location: unspecified site of breast Estrogen receptor status: unspecified Laterality: left Patient sex: female Qualified Code(s): C50.912 - Malignant neoplasm of unspecified site of left female breast (2) Hypertension Hypertension type: primary hypertension Qualified Code(s): I10 - Essential (primary) hypertension
[2022-02-07] MEDS: valACYclovir HCL 500 MG TABLET PO SCH (09:57)
[2022-02-07] MEDS: MIRTAZAPINE TAB 15 MG TAB PO SCH (09:57)
[2022-02-07] MEDS: THIAMINE HCL 100 MG TAB PO SCH (09:57)
[2022-02-07] MEDS: PANTOprazole 40 MG in SYRINGE 0 ML IV SCH ×2 (09:57→20:39)
[2022-02-07] MEDS: MAGNESIUM OXIDE 400 MG TAB PO SCH (09:57)
[2022-02-07] MEDS: ceFAZolin 1000MG 1,000 MG/7.5 ML SYR IV SCH ×2 (10:02→20:47)
[2022-02-07] MEDS: PEPTAMEN 1.5 CAL 1,000 ML BAG PEG SCH (11:28)
[2022-02-07] MEDS ORDERED: PEPTAMEN 1.5 CAL 1,000 ML BAG PEG SCH (20:00)
[2022-02-07] MEDS ORDERED: LORazepam 0.5 MG TAB PO ONE (21:00)
[2022-02-08] MEDS: TUBE FEEDING WATER FLUSH GT SCH ×3 (03:59→13:34)
[2022-02-08] MEDS: FIRST - Mouthwash BLM 119 ML PO SCH ×2 (05:06→13:33)
[2022-02-08] MEDS: MAGNESIUM OXIDE 400 MG TAB PO SCH (08:17)
[2022-02-08] MEDS: valACYclovir HCL 500 MG TABLET PO SCH (08:17)
[2022-02-08] MEDS: MIRTAZAPINE TAB 15 MG TAB PO SCH (08:17)
[2022-02-08] MEDS: THIAMINE HCL 100 MG TAB PO SCH (08:17)
[2022-02-08] MEDS: PANTOprazole 40 MG in SYRINGE 0 ML IV SCH (08:18)
[2022-02-08 08:27] LABS: Hematocrit (blood only) 21.5 % (37-47); Hemoglobin 7.3 g/dL (12.0-16.0); Mean Corpuscular Hemoglobin 32.2 pg (25-34); Mean Corpuscular Volume 94.7 fL (80-100); RDW Coefficient of Variation 13.1 % (11.5-14.5); RDW Standard Deviation 44.6 fL (36.4-46.3); Red Blood Count 2.27 M/uL (4.2-5.4); White Blood Count 18.56 K/uL (4.8-10.8)
[2022-02-08 08:40] LABS: BUN Creatinine Ratio 12.9 (10-20); Calcium 7.6 mg/dl (8.5-10.1); Creatinine Clr Calc Pharmacy 32.1 ml/min; Est GFR (African American) 70.7 ml/min; Potassium 3.4 mmol/L (3.5-5.1)
[2022-02-08 09:39] LABS: Basophils # (auto) 0.02 K/uL (0-0.2); Basophils % (auto) 0.1 %; Eosinophils # (auto) 0.05 K/uL (0-0.5); Eosinophils % (auto) 0.3 %; Immature Granulocytes # (auto) 0.18 K/uL (0.00-0.02); Lymphocytes # (auto) 1.17 K/uL (1.2-3.4); Lymphocytes % (auto) 6.3 %; Mean Platelet Volume 10.7 fL (7.4-10.4); Monocytes # (auto) 0.79 K/uL (0.11-0.59); Monocytes % (auto) 4.3 %; Neutrophils # (auto) 16.35 K/uL (1.4-6.5); Platelet Count 137 K/uL (130-400)
[2022-02-08] MEDS: ceFAZolin 1000MG 1,000 MG/7.5 ML SYR IV SCH (10:10)
--- NOTE | 2022-02-09 13:21 | Discharge Summary ---
Date of Service February 08, 2022 Admission HPI Per Admitting Provider Ms. Benson is a 71 y/o female with a PMH significant for stage III left sided breast cancer diagnosed 1 month ago and HTN who presents upon referral of her oncologist due to generalized weakness. Patient received her first chemotherapy treatment this past , 01/25 as well as Neulasta. In the days preceding this, she became increasingly weak, achy all over, facial rash, and developed diarrhea. Prior to starting chemo, she has had generalized body aches, primarily in her bilateral elbows and hips, however they have become worse in the days after her chemo. She has not had any recent falls or injuries. The rash and diarrhea started 3 days ago, 01/28. The rash started around her nose and lips bilaterally and has spread to her forehead. It is not itchy or painful. No visual changes or eye pain, no hearing changes. She describes her diarrhea it as tarry, occurring 5 times/day. She does not notice any pedro red blood in it and her BMs are not painful. She also endorses decreased appetite despite beign prescribed marinol for this. She is occasionally nauseous. She denies fever/chills, night sweats, chest pain, palpitations, shortness of breath, cough, abdominal pain, vomiting constipation, hematochezia, dysuria, hematuria, increased urinary frequency. She was supposed to have a consult this morning with Dr. Fox for port placement, however daughter canceled this yesterday as patient has been too weak to leave the house. Per daughter, there has also been conversations with oncology about potential PEG placement. In ED, VSS, wnl. Labs significant for pancytopenia ( WBC 3.55, RBC 3.21, PLT 123 ), Hgb 1.2, Na 132, BUN 67, Cr 1.32, AST 114. Lactate 1.5, pct 1.10. Blood cultures pending. CXR without evidence of acute disease. UA ordered, not yet collected. Principal Diagnosis failure to thrive breast cancer moderate to severe protein malnutrition Discharge Exam The patient appeared stable but with sarcopenia Vital signs as documented. Lungs are clear to auscultation and appear unlabored Cardiac exam, Rhythm is regular.. No murmurs, rubs or gallops. Abdominal exam reveals normal bowel sounds, soft non tender, no masses Extremities are nonedematous and both pedal pulses are normal. Neurologic exam is alert and oriented, no focal loss of strength or sensation Skin is without bruises or rashes Psychologically is without concerns for anxiety or depression. 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 EGD 02/05: Normal esophagus. Normal stomach. Mucosal changes in duodenum biopsied and pending path. PEG placement completed. Started tube feeds 02/06, transition to nocturnal feeding 02/07, tolerated will home with nocturnal feeds (2) Bacteremia: Patient with rapidly uptrending leukocytosis/12 and 02/02. Initially fe lt due to Neulasta Restarted empirically on cefepime evening of 02/01 given uptrending leukocytosis and acutely worsened hypotension concerning for potential early sepsis Blood cultures positive for gram-negative bacilli 09/26. Repeat UA ordered, 01/31 without bacteria/LE. Surveillance cultures ngtd Given concern for abdominal source history of cancer CT obtained with IV contrast. - CT-A/P: Liquid stool is seen in the rectum compatible with history of diarrhea. No additional abnormality is seen. Stool pathogen PCR panel negative Given above suspect bacteremia is likely due to gut translocation, - E. coli sensitivities did narrow to cefazolin and continue for total 7- day course, until 02/08 for gram-negative bacteremia UA initially with 12 pinpoint growth reintubated and with Marcelle. . Fluconazole discontinued 02/06. If patient develops symptoms of UTI reculture and treat at that point (3) Breast cancer: - Stage 3 LEFT breast cancer ER/MD-, HER-2+ - Diagnosed on diagnostic mammogram 1 month ago. - Chemo regimen: Docetaxel, carboplatin, trastuzumab, pertuzumab [id number] x6 cycles possibly followed up with surgery. - First chemo was 01/25 chemo additionally plan for 03-14 - PET/brain MRI for full staging on 01/24, revealed 2 left breast masses, axiliary and L internal mammary lymph node involvement, no metastatic dz to abdomen or pelvis, 6 mm ground glass RLL nodule indeterminant, not suspected to be met dz. Marinol for appetite stimulation - Echo 01/24--> EF 60-65%, small pericardial effusion - Dr. Morgan consulted as above. -Patient has completed PEG tube placement and is clinically improving. Port placement as outpt after completing bacteremia abx as noted. (4) Facial rash: - Developed several days after first chemotherapy treatment. Most prominent on left forehead, although also involves bilateral nasolabial folds and some on the right side of face. -Possibly consistent with shingles, although not in a strict dermatomal pattern Recommended to treat empirically with valacyclovir, started. 7-day course complete 02/08/2022. Appreciate recommendations - Improving (5) Elevated AST (SGOT): - AST 114, trending up since 01/11. ALT within normal limits, but also trending up since 01/11. T bili 0.5, alk phos 68. - Patient is not having any abdominal pain. PET scan did not show any metastatic disease to liver. - (6) Hyponatremia: resolved (7) Pancytopenia: - secondary to chemotherapy #Leukocytosis likely predominantly due to Neulasta treatment (8) Hypertension: - diltiazem and lisinopril/HCTZ, on hold due to low blood pressure (9) CKD (chronic kidney disease) stage 3, GFR 30-59 ml/min: - BUN 67 increased from presumed baseline on 01/11 with creatinine 1.35 on admission, down trended (10) Antineoplastic chemotherapy induced pancytopenia: - w/ neutrophilia following neulasta (11) Severe protein-calorie malnutrition: - s/p PEG, 2/2 poor intake, chemo, cancer as noted - - SCDs for DVT ppx, chemoppx held for anemia/GIB - DNR/DNI. Total Time Total Time Spent Total Time Spent (In Minutes): It required greater than 30 minutes to prepare this patient for discharge Discharge Plan Discharge Items Patient Disposition: Home - Home Health Services Reason For Visit: FAILURE TO THIRVE Discharge Diagnosis: protein calorie malnutrition weakness breast cancer Activity: Per Instructions section Activity Comment: slowly increase activity Non-emergency contact: Primary Care Provider and Oncologist Call non-emergency contact if: your symptoms worsen and you have a fever Follow-up/Referrals: Dominique Diop MD [Physician] - 02/23/22 11:20 am ([facility] - hospital follow up. Please keep your already scheduled appointment with Dr. Dougherty on 08/23/22 at 1pm.) Diet: Regular Diet Comment: ise tube feeds peptamen 1.5 or similar overnight and flush afterward Addtl Attending Provider Instructions: please try to eat healthy foods, and continue taking a multiple vitamin a day be in touch with your new primary care and Dr Morgan always flush your tube Pending Studies at Discharge: Yes Stand-Alone Forms: My [facility], Smoking Cessation Medications and DC Order Prescriptions: New Tube Feeding Water Flush 250 ml G-tube UD Qty: 1 RF: 0 lorazepam [Ativan] 0.5 mg tablet 0.5 mg PO HS PRN (Reason: sleep) Qty: 5 RF: 0 Continued ondansetron HCl 8 mg tablet 8 mg PO Q8H PRN (Reason: Nausea) RF: 0 prochlorperazine maleate 10 mg tablet 10 mg PO Q6H PRN (Reason: Nausea) RF: 0 tramadol 50 mg tablet 50 mg PO Q6H PRN (Reason: Pain) RF: 0 diltiazem HCl 120 mg tablet 120 mg PO BID RF: 0 lisinopril-hydrochlorothiazide 20-25 mg tablet 1 tab PO QAM RF: 0 mirtazapine 15 mg tablet 15 mg PO QAM RF: 0 Discontinued methylprednisolone 4 mg tablets,dose pack 4 mg PO .TAPER DOSE RF: 0 Discharge Orders: Discharge Order (Routine); Ordered 02/08/22 Ordered By: Fili Carreon Admission Data Admit Date/Time: 01/31/22 12:22 Attending Provider: Fili Carreon Admit Provider: Refugio Grace Primary Care Provider: Laurel Dougherty Other Providers: Refugio Grace ; Kika Morgan ; Fidencio Nur ; Mannie Be ; Kaleigh Cerrato ; Yolanda Pena ; Mykel Go Other Interventions: Discharge Summary Assessment (RN) Last Done: 02/08/22 15:43 Coding Level of Care Code D/C DAY MANAGEMENT >30 MINS Diagnoses UGI bleed K92.2 Bacteremia R78.81 Breast cancer C50.912 Breast location: unspecified site of breast Estrogen receptor status: unspecified Patient sex: female Laterality: left Facial rash R21 Elevated AST (SGOT) R74.01 Hyponatremia E87.1 Pancytopenia D61.818 Hypertension I10 Hypertension type: primary hypertension CKD (chronic kidney disease) stage 3, GFR 30-59 ml/min N18.30 Antineoplastic chemotherapy induced pancytopenia D61.810; T45.1X5A Severe protein-calorie malnutrition E43
== END 2022-02-08 15:57 | disposition home health service (06) | DRG 640 ==
LOC: ED 08:32 → 3W 12:22 → SUATTDRO 12:22 → 3W 14:39
DX: R19.7 Diarrhea, unspecified; I12.9 Hypertensive chronic kidney disease with stage 1 through stage 4 chronic kidney disease, or unspecified chronic kidney disease; N18.30 Chronic kidney disease, stage 3 unspecified; T45.1X5A Adverse effect of antineoplastic and immunosuppressive drugs, initial encounter; E87.1 Hypo-osmolality and hyponatremia; Z17.1 Estrogen receptor negative status [ER-]; D72.828 Other elevated white blood cell count; Z68.1 Body mass index [BMI] 19.9 or less, adult; R21 Rash and other nonspecific skin eruption; Z79.899 Other long term (current) drug therapy; Z91.018 Allergy to other foods; E43 Unspecified severe protein-calorie malnutrition; F17.210 Nicotine dependence, cigarettes, uncomplicated; E86.1 Hypovolemia; R62.7 Adult failure to thrive; R82.79 Other abnormal findings on microbiological examination of urine; K92.2 Gastrointestinal hemorrhage, unspecified; E87.6 Hypokalemia; R74.01 Elevation of levels of liver transaminase levels; R64 Cachexia; T45.8X5A Adverse effect of other primarily systemic and hematological agents, initial encounter; D61.810 Antineoplastic chemotherapy induced pancytopenia; C50.912 Malignant neoplasm of unspecified site of left female breast; Z66 Do not resuscitate

== ENCOUNTER 2022-07-20 09:23 | Inpatient (IN) ==
--- NOTE | 2022-07-20 11:04 | History & Physical Report ---
Date of Service July 20, 2022 Assessment & Plan (1) Arthralgia: Plan: Diffuse pain, Weakness Diffuse pain throughout body while moving and in all joints post chemo and surgery Stage III left-sided breast cancer s/p TCHP and left surgical mastectomy as noted below Seen in ER 07/18/2022. Lyme negative, CXR without acute findings, mild chronic anemia at that time. Declined analgesic medications at that time. Left lower extremity ultrasound with no evidence of DVT. Was discharged home to outpatient follow-up. Weak, rundown, feels she has been globally declining over the last 2 weeks Pain is worst at bilat hips, endorses some ARLETH swelling and pain post op otherwise global pain which resolves to 0/10 with rest - PET-CT with no bony mets last month Home pain regimen tramadol 50 mg p.o. every 6 hours - Broad labs ordered on admission including electrolytes, ionized calcium, TSH. No evidence of bony metastasis on prior imaging.? Patient with low albumin and protein calorie malnutrition with progressively poor p.o. intake. Her pain is resolved to 0/10 with rest,? Risk less benefit of long-acting narcotic analgesia due to this, may benefit from preactivity immediate release medications instead. Will complete metabolic work-up and obtain imaging as noted,If negative symptomatic control efforts at that time. For now continue scheduled Tylenol, tramadol XR bilateral hip obtained given that this is where her pain is worst. With some left shoulder pain, Decreased range of motion compared to the right. /p left radical mastectomy. Is pending simulation and left shoulder radiation therapy with radiation oncology. Stage III left-sided breast cancer Invasive ductal carcinoma, grade 3, ER/LA negative, H ER 2 positive, cT4 N2 M0, [id number] Started TCHP 01/25/2022, completed 6 cycles Initial PET/CT scan 01/2022 with multiple axillary lymph node and internal mammary lymph node enlargement. Post TCHP showed treatment response with some residual disease, underwent radical mastectomy with lymph node dissection as noted below Did have complication of upper GI bleed with negative EGD 02/05, tolerated remaining chemo well S/p left modified radical mastectomy 06/26/2022. Did have some postop mucous plugging/partial lung collapse Seen by radiation oncology 07/18 for continued difficulty with range of motion of left shoulder. Pending CT simulation in approximately 3 weeks. TTE 05/14/2022: LV wall motion normal, EF 50-55%, moderate mitral regurg, left atrial size normal, trace anterior pericardial effusion, right ventricular systolic pressure normal. Compared with 01/24/2022 mild decline in systolic function and moderate mitral regurg previously small pericardial effusion improved and nearly resolved CBC/coag pending, if normal and no bleeding DVT prophylaxis with Lovenox. If concern for bleeding/significant anemia SCDs. Chronic cough With history of right middle lobe collapse suspect did 2/2 mucous plugging and with COVIDWhich subsequently resolved on repeat imaging Stable 6.6 mm indeterminate groundglass nodule right lower lobe without increased uptake on PET/CT With history of emphysema and pleural-parenchymal scarring and bilateral tree-in-bud nodularity Has been stable and improved with albuterol, no evidence of superimposed pneumonia on prior work-up. Resolved on subsequent work-up Patient's wet cough did resolve on Symbicort, this was held for the last 3 days as patient thought he might of contributed to her weakness. She has not had any benefit with this held, although notes her breathing has continued to do well. No wheezing on admittime Odynophagia/dysphagia Chronic, worsened postoperatively and patient with difficulty tolerating solids and thickened liquids History of temporary esophageal obstruction which passed spontaneously. Has had some improvement on nystatin 4 times daily. PET/CT without lymphadenopathy or masses in the neck. Patient preferring to manage conservatively and avoid procedures were possible including EGD at past PCP follow-up Chronically elevated AST CMP pending Prior PET scans with no metastatic disease to liver Pancytopenia In the setting of chemo, has received Neulasta in the pastDuring chemo. No recent doses since completing chemo. 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 Patient has temporarily held home budesonideformoterol As weakness started at the same time and can be a side effect, will continue to hold although has not had benefit from holding this over the last 3 days Continue albuterol 4 times daily as needed No acute exacerbation DVT prophylaxis: SCDs, if CBC normal Lovenox daily Diet: Pured, nutrition consulted for PEG feeding. Of note patient cannot go above 60 cc on continuous overnight feeding due to poor tolerance and had reduced from 4 cans to 3 cans daily, she is not sure if her total cc intake CODE STATUS: DNR/DNI Disposition: Medical/surgical for pain control (2) Weakness: (3) Malignant neoplasm of central portion of left breast in female, estrogen receptor negative: (4) Former smoker: (5) PEG (percutaneous endoscopic gastrostomy) status: (6) Chronic obstructive pulmonary disease: (7) Elevated AST (SGOT): (8) Pancytopenia: (9) Severe protein-calorie malnutrition: (10) Hypertension: History of Present Illness Primary Care Provider: Laurel Dougherty MD Hayley Benson is a 71-year-old female with a past medical history of stage III left-sided breast cancer status post chemotherapy and mastectomy, hypertension PCP medication reconciliation: Zofran 8 mg every 8 hours as needed, Compazine 10 mg every 6 hours as needed, tramadol 50 mg every 6 hours as needed, tube feeding and to 50 cc flushes, lorazepam 0.5 mg at bedtime as needed for sleep, acyclovir 200 mg twice daily, Decadron 16 mg daily, dronabinol 5 mg daily, filgrastim 300 mcg [frequency?], Loratadine daily, benzonatate as needed, albuterol HFA as needed, nystatin daily, budesonideformoterol (Symbicort) twice daily Hayley is seen with her daughter Carleen at the bedside. Hayley reports that she has had progressive global weakness and fatigue for the last 2 weeks, which has significantly limited her and seems worse in the last 3 days. She does have some increased pain in her left shoulder postoperatively after mastectomy, but reports that her pain is generally global, worsened with exertion, and she has severe fatigue where she will need to sit down and rest after being on her feet for only a couple of minutes. She reports her pain is actually worse in her bilateral hips but is also in her knees, ankles, shoulders, and elbows. Denies numbness/tingling/paresthesia. Feels the weakness is not limited to one side or upper versus lower extremities. She has not had fever, chills, sweats, lightheadedness, dizziness. While she has had shortness of breath in the past, she reports that she has not had limiting shortness of breath or worsening of breathing or chest pain with the symptoms. She notes that her prior shortness of breath and wet cough completely resolved after starting Symbicort, and notes that by her last x-ray her mucous plugging lung collapse had also resolved. She reports she did stop her Symbicort for several days out of concern it might of been causing her weakness, stopping this has been not produced any benefit. She takes only loratadine and as needed medications otherwise, has not noticed much benefit from Tylenol, tramadol, or immediate release oxycodone or immediate release hydrocodone. Her pain goes down to a 0/10 when laying in bed and while at rest, and significantly increases while on her feet and with exertion globally. Medical History: Reviewed Medications: Reviewed Surgical History: Reviewed Allergies: Reviewed Social History: No tobacco/etoh Code Status: DNR/DNi. Surrogate DM would be sanjay Durant Allergies Allergy/AdvReac Type Severity Reaction Status Date / Time pistachio nut AdvReac Severe Red face Verified 07/18/22 18:42 and hands ~ Throwing up Home Medications Medication Instructions Recorded Confirmed Type ondansetron HCl 8 mg tablet 8 mg PO Q8H PRN Nausea 01/31/22 07/18/22 History prochlorperazine maleate 10 mg 10 mg PO Q6H PRN Nausea 01/31/22 07/18/22 History tablet (Compazine) tramadol 50 mg tablet 50 mg PO Q6H PRN Pain 01/31/22 07/18/22 History Tube Feeding Water Flush 250 ml G-tube UD #1 amp 02/08/22 07/18/22 Rx lorazepam 0.5 mg tablet (Ativan) 0.5 mg PO HS PRN sleep #5 tabs 02/08/22 07/18/22 Rx loratadine 5 mg-pseudoephedrine ER 1 tab PO BID PRN Congestion 02/23/22 07/18/22 History 120 mg tablet,extended release,12hr (Claritin-D 12 Hour) albuterol sulfate 90 mcg/actuation 1 inh inhalation QID PRN shortness 06/15/22 07/18/22 Rx aerosol inhaler of breath or wheezing or cough #8.5 grams nystatin 100,000 unit/mL oral 4 ml PO DAILY #250 mL 07/04/22 07/18/22 Rx suspension budesonide-formoterol HFA 160 2 puff inhalation BID #10.2 grams 07/06/22 07/18/22 Rx mcg-4.5 mcg/actuation aerosol inhaler (Symbicort) furosemide 20 mg tablet (Lasix) 20 mg PO DAILY PRN Fluid Retention 07/18/22 07/18/22 History loratadine 10 mg tablet (Claritin) 10 mg PO DAILY PRN Congestion 07/18/22 07/18/22 History ondansetron 4 mg disintegrating 4 mg PO Q8H PRN nausea and 07/18/22 Rx tablet vomiting 5 days #15 tabs Past Med/Surg History Medical History Breast cancer Former smoker Hypertension Port-A-Cath in place Surgical History History of left mastectomy Hx of tonsillectomy PEG (percutaneous endoscopic gastrostomy) status Family History Mother Hypertension Sister Hypertension Brother Hypertension Father Lung cancer Social History Smoking Status: Never smoker Tobacco Type: Cigarettes Years Smoked: 40; Cigarettes Per Day: 3; Second Hand Exposure: No; Do You Dip or Chew Tobacco: No; Tobacco Cessation Education Requested by Patient: No Hx Alcohol Use: No Hx Substance Use: No Preferred Language: Kazakh Communication Ability: Effective Hearing Ability: Normal Behavioral Interventionist Required: Yes Beliefs That Will Affect Care: None marital status: / Current Living Situation: Family current occupational status: retired How many Children do You have: 1 Other Information That Helps Us Care for You: No Feels Safe at Home: Yes Diet Comment: Peg tube feeds, Boost daily; small amounts orally during the past year weight has: decreased > 10 lbs Dental Care, Regularly: Yes Physical Activity Frequency: Does not Exercise Seatbelt Use: always Do you think of yourself as: straight/heterosexual Gender Identity: Female Assistive Devices: Bedside Commode, Glasses and Walker Assistive Devices Comment: Daybed Review of Systems Review of Systems: All systems reviewed & are unremarkable except as noted in HPI & below Physical Exam Physical Exam: General: A&Ox3. Appears chronically ill/cachectic. Right port present. HEENT: Atraumatic, normocephalic.Pupils equal and reactive to light. Vision and hearing grossly intact. EOM intact. Pulm: CTAB A&P. -wheezes, -rales, -rhonchi. Symmetrical chest rise. No increase in work of breathing. No respiratory distress. Cardiac: RRR, -mrg. Radial pulses intact and symmetrical. Thorax: Left chest wall postsurgical incision intact, well-healing without surrounding erythema/purulence/discharge. Abdominal: Nontender, nondistended, soft. BS present. PEG tube in place, no surrounding erythema/discharge Extremities: elbow flexion/extension, hip flexion, knee flexion, ankle dorsiflexion/plantarflexion 4+/5 bilaterally, Mitten Stitcher strength 4/5 left compared to 4+/5 right. Left shoulder forward flexion limited compared to right by discomfort.Trace left upper extremity and ankle edema. Sensation to soft touch intact in feet bilaterally without asymmetry, sensation soft touch intact in hands and arm bilaterally qualitatively slightly decreased on the left. PG Care Time/CCT Total # of Minutes Spent Total Time Spent with Patient: Total time spent is greater than 50% in coordination of care (as documented) at patient's floor/unit and/or counseling patient: Coding Level of Care Code INT OBSERVATION CARE 70M LVL 3 Diagnoses Arthralgia M25.50 Weakness R53.1 Malignant neoplasm of central portion of left breast in female, estrogen receptor negative C50.112; Z17.1 Former smoker Z87.891 PEG (percutaneous endoscopic gastrostomy) status Z93.1 Chronic obstructive pulmonary disease J44.9 Elevated AST (SGOT) R74.01 Pancytopenia D61.818 Severe protein-calorie malnutrition E43 Hypertension I10 Hypertension type: primary hypertension (1) Hypertension Hypertension type: primary hypertension Qualified Code(s): I10 - Essential (primary) hypertension
[2022-07-20] MEDS ORDERED: ONDANSETRON INJ 2 MG/ML 2 ML VIAL IV PRN (12:30)
[2022-07-20] MEDS ORDERED: ACETAMINOPHEN 325 MG TAB PO PRN (12:30)
[2022-07-20] MEDS ORDERED: ALBUTEROL HFA 8 GM INHALER INH PRN (12:39)
--- NOTE | 2022-07-20 15:26 | XRay Report ---
XR hip SAMIR 2v w pelvis HISTORY: 71 years-old Female worsening bilat hip pain with weightbearing chronic bilateral hip pain COMPARISON: PET CT 06/06/2022 TECHNIQUE: AP view of the pelvis with 2 views of the bilateral hips FINDINGS: Moderate colonic fecal retention. There is an apparent gastrostomy tube. Pelvic basin phleboliths. Mi ld to moderate osteoarthritis of the hips. No acute fracture, dislocation or definite avascular necro sis. IMPRESSION: No acute fracture or dislocation. ACT 112: Negative or not required by law. The above report was generated using voice recognition software. It may contain grammatical, syntax o r spelling errors. Electronically signed by: Vlad Shelton M.D. 07/20/2022 3:25 PM
--- NOTE | 2022-07-20 17:03 | Palliative Care Consultation ---
Date of Consultation July 20, 2022 Assessment & Plan (1) Arthralgia: Prior testing negative for Lyme. PET scan negative for bony metastases. We discussed use of anti inflammatory medication which is particularly effective for bone pain. Though it is not clear that she had a prior GI bleed, would prefer short term steroid with PPI prophylaxis rather than NSAID, articularly with poor po intake and risk of dehydration. Will start decadron at 6mg BID with protonix. Continue prn tramadol. (2) Generalized weakness: This is a significant quality of life issue for her. She is living in her daughter's living room and is distressed about depending on her daughter for care. She is anxious to participate in PT to increase her strength but unable to do this secondary to pain. Monitor with addition of steroid. PT has been consulted. (3) Palliative care encounter: Hayley is very much interested in continuing cancer treatment if possible. Her daughter, Gilda, is a former hospice nurse and very familiar with hospice. They are not ready for hospice at this time. Hayley's priority is to improve her strength to be more independent and would like to be able to get out of bed to the bathroom and prepare meals. Gilda is navigating the role of daughter and caregiver rather than nurse. She is very interested in options for support at home after discharge. We discussed the role of palliative care in hospital and possibility of follow up for symptom management and support as an outpatient. However, that would not provide in home support for them. We discussed home care agencies who can provide support, nursing care and physical therapy and help with transition to hospice when appropriate. Case management will work with them during her stay. History of Present Illness Reason for Consultation: symptom management, goals of care Requesting Physician: Dr. Hewitt Attending Physician: Barak Vargas DO History of Present Illness 71 yo lady from [facility] who was diagnosed with Stage 3 ER/TX negative, HER-2 positive left breast cancer. Prior to treatment she was noted to have axillary and internal mammary lymphadenopathy. She completed course of chemotherapy and had left radical mastectomy several weeks ago and has seen Dr. Kc in preparation for radiation therapy. She has had significant anorexia and weakness during treatment with PEG tube placed for supplemental nutrition. She has also had some difficulty swallowing including difficulty with medications. Her daughter has been crushing medications. Chart indicates that she had GI bleed during chemotherapy but per her daughter, Gilda, who is an RN, she was heme negative with negative EGD. She presents with increasing joint pain which is limiting her mobility. Pain is most severe in her hips and lower legs. It does not bother her at rest but is severe when she attempts to ambulate or even transfer to bedside commode. She is concerned about severe weakness and had been hoping to get PT at home after her surgery but is unable to tolerate PT due to pain. She is also concerned about being able to tolerate radiation therapy due to pain. She has taken oxycodone which was not effective for her pain and hydrocodone/APAP which was very sedating for her. She is currently using tramadol with some relief. Allergies Allergy/AdvReac Type Severity Reaction Status Date / Time pistachio nut AdvReac Severe Red face Verified 07/18/22 18:42 and hands ~ Throwing up Home Medications Medication Instructions Recorded Confirmed Type ondansetron HCl 8 mg tablet 8 mg PO Q8H PRN Nausea 01/31/22 07/18/22 History prochlorperazine maleate 10 mg 10 mg PO Q6H PRN Nausea 01/31/22 07/18/22 History tablet (Compazine) tramadol 50 mg tablet 50 mg PO Q6H PRN Pain 01/31/22 07/18/22 History Tube Feeding Water Flush 250 ml G-tube UD #1 amp 02/08/22 07/18/22 Rx lorazepam 0.5 mg tablet (Ativan) 0.5 mg PO HS PRN sleep #5 tabs 02/08/22 07/18/22 Rx loratadine 5 mg-pseudoephedrine ER 1 tab PO BID PRN Congestion 02/23/22 07/18/22 History 120 mg tablet,extended release,12hr (Claritin-D 12 Hour) albuterol sulfate 90 mcg/actuation 1 inh inhalation QID PRN shortness 06/15/22 07/18/22 Rx aerosol inhaler of breath or wheezing or cough #8.5 grams nystatin 100,000 unit/mL oral 4 ml PO DAILY #250 mL 07/04/22 07/18/22 Rx suspension budesonide-formoterol HFA 160 2 puff inhalation BID #10.2 grams 07/06/22 07/18/22 Rx mcg-4.5 mcg/actuation aerosol inhaler (Symbicort) furosemide 20 mg tablet (Lasix) 20 mg PO DAILY PRN Fluid Retention 07/18/22 07/18/22 History loratadine 10 mg tablet (Claritin) 10 mg PO DAILY PRN Congestion 07/18/22 07/18/22 History ondansetron 4 mg disintegrating 4 mg PO Q8H PRN nausea and 07/18/22 Rx tablet vomiting 5 days #15 tabs Patient History Medical History Breast cancer Former smoker Hypertension Port-A-Cath in place Surgical History History of left mastectomy Hx of tonsillectomy PEG (percutaneous endoscopic gastrostomy) status Family History Mother Hypertension Sister Hypertension Brother Hypertension Father Lung cancer Social History Smoking Status: Current some day smoker Tobacco Type: Cigarettes Years Smoked: 40; Cigarettes Per Day: 3; Second Hand Exposure: No; Do You Dip or Chew Tobacco: No; Tobacco Cessation Education Requested by Patient: No Hx Alcohol Use: No Hx Substance Use: No Preferred Language: German Communication Ability: Effective Hearing Ability: Normal Pharmacognosy Teacher Required: Yes Beliefs That Will Affect Care: None marital status: / Current Living Situation: Family current occupational status: retired How many Children do You have: 1 Other Information That Helps Us Care for You: No Feels Safe at Home: Yes Diet Comment: Peg tube feeds, Boost daily; small amounts orally during the past year weight has: decreased > 10 lbs Dental Care, Regularly: Yes Physical Activity Frequency: Does not Exercise Seatbelt Use: always Do you think of yourself as: straight/heterosexual Gender Identity: Female Assistive Devices: Bedside Commode, Glasses and Walker Assistive Devices Comment: Daybed Review of Systems Review of Systems: ESAS Pain 3/3 Nausea 0/3 Dyspnea 0/3 Anxiety 0/3 Drowsiness 0/3 PPS 40 Physical Exam Constitutional: + ill appearing and + cachectic ENMT: Mouth: oral mucous membranes not dry Respiratory: normal respiratory effort; no labored breathing Musculoskeletal: Extremities: + muscle atrophy; no joint enlargement (no edema or erythema) Skin: warm and dry Neurologic: awake; not confused Genitourinary: continent Results & Data ([facility]) Vital Signs (Past 12 Hours) Vital Signs Temp Pulse Resp BP Pulse Ox O2 Del Method 07/20/22 12:02 97.3 F L 83 18 131/77 99 Room Air PG Care Time/CCT Total # of Minutes Spent Total Time Spent: 78 Total Time Spent with Patient: Total time spent is greater than 50% in coordination of care (as documented) at patient's floor/unit and/or counseling patient: symptom management, goals of care, patient and family education and support Coding Level of Care Code 81044 Initial Inpt Care Lvl 3 Diagnoses Arthralgia M25.50 Generalized weakness R53.1 Palliative care encounter Z51.5
[2022-07-20 18:14] LABS: Basophils # (auto) 0.03 K/uL (0-0.2); Basophils % (auto) 0.4 %; Eosinophils # (auto) 0.14 K/uL (0-0.50); Hematocrit (blood only) 22.7 % (34.1-44.9); Hemoglobin 7.5 g/dl (12.0-16.0); Immature Granulocytes # (auto) 0.08 K/uL (0.00-0.02); Immature Granulocytes % (auto) 1.1 %; Lymphocytes # (auto) 1.37 K/uL (1.2-3.4); Lymphocytes % (auto) 19.3 %; Mean Corpuscular Hemoglobin 32.5 pg (25.0-34.0); Mean Corpuscular Volume 98.3 fL (80.0-100.0); Mean Platelet Volume 10.7 fL (9.4-12.3); Monocytes # (auto) 0.68 K/uL (0.24-0.82); Monocytes % (auto) 9.6 %; Neutrophils # (auto) 4.81 K/uL (1.4-6.5); Neutrophils % (auto) 67.6 %; Platelet Count 143 K/uL (130-400); RDW Coefficient of Variation 14.6 % (11.5-14.5); RDW Standard Deviation 52.7 fL (36.4-46.3); Red Blood Count 2.31 M/uL (3.93-5.22); White Blood Count 7.11 K/ul (4.8-10.8)
[2022-07-20 18:35] LABS: Albumin Globulin Ratio 0.8 (0.9-2); Albumin Level 2.7 gm/dl (3.4-5.0); BUN Creatinine Ratio 62.8 (10-20); Bilirubin,Total 0.3 mg/dl (0.2-1.0); Calcium 8.2 mg/dl (8.5-10.1); Est GFR (African American) 77.7 ml/min; Globulin 3.2 gm/dl (2.5-4.0); Potassium 4.3 mmol/L (3.5-5.1); Total Protein 5.9 gm/dl (6.0-8.3)
[2022-07-20 18:47] LABS: RBC Morphology Unremarkable
[2022-07-20] MEDS: dexAMETHasone 6 MG in SYRINGE 0 ML IV SCH (21:33)
[2022-07-20] MEDS: TUBE FEEDING WATER FLUSH GT SCH (21:34)
[2022-07-20] MEDS: PEPTAMEN 1.5 CAL 1,000 ML BAG GT SCH (21:34)
[2022-07-20] MEDS: traMADol HCL 50 MG TABLET PO PRN (21:36)
[2022-07-20] MEDS: HEPARIN 100 UNIT/ML 5ML FLUSH FLUSH PRN (22:09)
[2022-07-21] MEDS: [UNRECOGNIZED DRUG - REMARK] SCH (06:43)
[2022-07-21] MEDS: TUBE FEEDING WATER FLUSH GT SCH ×2 (06:44→18:47)
[2022-07-21] MEDS: traMADol HCL 50 MG TABLET PO PRN (06:50)
[2022-07-21 08:01] LABS: Hemoglobin 7.1 g/dl (12.0-16.0); Immature Granulocytes # (auto) 0.06 K/uL (0.00-0.02); Immature Granulocytes % (auto) 1.3 %; Lymphocytes # (auto) 0.73 K/uL (1.2-3.4); Lymphocytes % (auto) 15.9 %; Mean Platelet Volume 10.8 fL (9.4-12.3); Monocytes # (auto) 0.36 K/uL (0.24-0.82); Monocytes % (auto) 7.8 %; Neutrophils # (auto) 3.44 K/uL (1.4-6.5); Platelet Count 121 K/uL (130-400); White Blood Count 4.59 K/ul (4.8-10.8)
[2022-07-21 08:22] LABS: Albumin Globulin Ratio 0.8 (0.9-2); Albumin Level 2.7 gm/dl (3.4-5.0); BUN Creatinine Ratio 67.1 (10-20); Bilirubin,Total 0.2 mg/dl (0.2-1.0); Calcium 8.3 mg/dl (8.5-10.1); Creatinine Clr Calc Pharmacy 39.8 ml/min; Est GFR (African American) 82.3 ml/min; Globulin 3.2 gm/dl (2.5-4.0); Potassium 4.7 mmol/L (3.5-5.1); Total Protein 5.9 gm/dl (6.0-8.3)
[2022-07-21 08:27] LABS: Mean Corpuscular Hemoglobin 31.7 pg (25.0-34.0); Mean Corpuscular Hgb Conc 32.3 g/dL (32.0-36.0); Mean Corpuscular Volume 98.2 fL (80.0-100.0); RBC Morphology Unremarkable; RDW Coefficient of Variation 14.7 % (11.5-14.5); RDW Standard Deviation 52.3 fL (36.4-46.3); Red Blood Count 2.24 M/uL (3.93-5.22)
[2022-07-21] MEDS: PANTOprazole 40 MG in SYRINGE 0 ML IV SCH (08:35)
[2022-07-21] MEDS: POLYETHYLENE (MIRALAX) 17 GM PACK PO PRN (08:35)
[2022-07-21] MEDS: dexAMETHasone 6 MG in SYRINGE 0 ML IV SCH ×2 (08:35→20:21)
[2022-07-21] MEDS: SODIUM CHLORIDE 0.9% 1000ML 1,000 ML IV SCH (10:32)
--- NOTE | 2022-07-21 12:32 | Hospitalist Progress Note ---
Date of Service July 21, 2022 Assessment & Plan (1) Low back pain: Plan: She c/o lumbar back pain with radiation of that pain into the buttocks/upper posterior thighs. She has mild weakness of both hips. Differential - lumbar spinal stenosis vs myopathy vs weakness from hyponatremia or other metabolic derangements vs other. Start with MRI lumbar spine with and w/o contrast. Replace low-normal B12. Check CPK. Check sed rate/crp. Consider MRI brain. Of note - no response to IV dexamethasone overnight. (2) Pancytopenia: Plan: etiology? present for months or longer/chronic TSH wnl B12 low-normal but doubt playing a role Check a folate level last chemo was April thus not chemo-induced repeat CBC with diff in am check an anaplamosis smear as tick-borne disease can cause pancytopenia consider viral studies (parvo, mono, etc) (3) Weakness: Plan: see #1 above could she have a paraneoplastic syndrome from her cancer? (4) Malignant neoplasm of central portion of left breast in female, estrogen receptor negative: Plan: PET-CT in May without distant mets if work-up for #1 above is not revealing consider repeat imaging (5) Former smoker: (6) PEG (percutaneous endoscopic gastrostomy) status: Plan: cont night-time tube feedings per home regimen nutrition consult to ensure current regimen provides all necessary calories and nutrients (7) Chronic obstructive pulmonary disease: Plan: no flare at this time (8) Elevated AST (SGOT): Plan: chronic check CPK in am (9) Severe protein-calorie malnutrition: (10) Hypertension: Plan: BPs controlled at this time without meds (11) Hyponatremia: Plan: with high BUN likely some element of volume depletion continue NS hydration repeat BMP in am if Na is stubborn to correct then serum osm, urine osm, urine Na Plan DVT proph - add heparin 5000 BID will need PT, OT evals Admission and Anticipated Discharge Date Admission Date: July 20, 2022 Subjective patient states that if she is lying still in bed she has no pain in any location when she tries to move or roll she has pain in the low back (spine and paraspinal regions) that radiate into both buttocks she denies paresthesias or numbness/tingling she denies joint pains in her hands she has mild right knee pain denies claudication or history of such prior to about 1 week ago she had no back pain or buttock pain symptoms came on gradually she has noted NO improvement with use of steroids overnight (has had 2 doses) denies myalgia type pain denies proximal muscle weakness of arms patient states she takes most nutrition through her PEG but she does try to eat but she has considerable difficulty with such takes some pureed foods last chemotherapy was in late April 2022 Review of Systems Review of Systems: gen - no fevers, no chills cv - no cp, no orthopnea pulm - no dyspnea GI - no pain Physical Exam Physical Exam: gen - very thin/cachectic, NAD, pleasant mouth - MMM, no thrush or lesions neck - no JVD heart - RRR, s1 s2 lungs - CTA b/l abd - soft NT ND BS+; PEG tube site clean ext - no edema, pulses 2+ b/l neuro - mild hip flexion weakness b/l, about 3/5 strength; distal strength in both feet 5/5; sensation intact to light touch over all dermatomes of both legs when I asked her to roll in bed she had difficulty because of weakness in legs and also because of pain in her low back; reflexes - patellar and achilles 2+ b/l; no ankle clonus musculo - with palpation of the lumbar spine and paraspinal regions I could not reproduce any pain; right knee with mild crepitus with passive flexion/extension; no inflammatory synovitis of any small or large joint of either arm or leg psych - a/o x 3 Results & Data Results & Data ([facility]) Vital Signs (Past 12 Hours) Vital Signs Temp Pulse Resp BP Pulse Ox O2 Del Method 07/21/22 07:16 36.5 C 82 18 120/74 97 Room Air Laboratory Results Laboratory Results - last 24 hr 07/21/22 07/21/22 07/21/22 07:26 07:26 12:38 WBC RBC 2.24 L Hgb Hct MCV 98.2 MCH 31.7 MCHC 32.3 RDW Std Deviation 52.3 H RDW Coeff of Emil 14.7 H Plt Count RBC Morphology Unremarkable ESR Sodium 132 L Potassium 4.7 Chloride 102 Carbon Dioxide 25 Anion Gap 5 BUN 55 H Creatinine 0.82 Est Cr Clr Drug Dosing 39.8 Est GFR ( Amer) 82.3 Est GFR (Non-Af Amer) 71.0 BUN/Creatinine Ratio 67.1 H Glucose 123 H Calcium 8.3 L Total Bilirubin 0.2 AST 47 H ALT 14 Alkaline Phosphatase 61 Total Creatine Kinase C-Reactive Protein Total Protein 5.9 L Albumin 2.7 L Globulin 3.2 Albumin/Globulin Ratio 0.8 L Folate TSH 1.976 PG Care Time/CCT Total # of Minutes Spent Total Time Spent with Patient: Total time spent is greater than 50% in coordination of care (as documented) at patient's floor/unit and/or counseling patient: Coding Level of Care Code 15889 Subseq Hosp Care Lvl 3 Diagnoses Low back pain M54.50 Pancytopenia D61.818 Weakness R53.1 Malignant neoplasm of central portion of left breast in female, estrogen receptor negative C50.112; Z17.1 Former smoker Z87.891 PEG (percutaneous endoscopic gastrostomy) status Z93.1 Chronic obstructive pulmonary disease J44.9 Elevated AST (SGOT) R74.01 Severe protein-calorie malnutrition E43 Hypertension I10 Hypertension type: primary hypertension Hyponatremia E87.1 (1) Hypertension Hypertension type: primary hypertension Qualified Code(s): I10 - Essential (primary) hypertension
[2022-07-21] MEDS ORDERED: GADOBUTROL 7.5ML VIAL IV ONE (13:57)
[2022-07-21] MEDS: LIDOCAINE 5% 1 PATCH TD SCH (14:22)
--- NOTE | 2022-07-21 16:14 | Magnetic Resonance Report ---
MR lumbar spine wo/w con CLINICAL HISTORY: 71 years-old Female with back pain, b/l leg pain/weakness; h/o breast ca. Chronic low back pain with bilateral lower extremity weakness. History of breast cancer COMPARISON: PET CT 06/06/2022 TECHNIQUE: Multiplanar, multi sequence MRI of the lumbar spine was performed without intravenous cont rast. FINDINGS: [employer] Service[employer] localizer images demonstrate no gross extraspinal abnormality. Conus medullaris terminates at T 12-L1. Normal signal within the imaged thoracic spinal cord and cauda equina. Motion degraded exam. R ight-sided renal cysts are redemonstrated. Diffusely heterogeneous appearance of the marrow, likely s econdary to bone demineralization. No discrete marrow replacing lesions are identified. Nonspecific d iffuse edema throughout the musculature. No acute fracture, subluxation or endplate erosion. No epidu ral collections. T12-L1: Mild intervertebral disc space narrowing with spondylitic spurring and moderate facet arthro sis. No central canal or neural foraminal stenosis. L1-L2: Mild spondylitic spurring with moderate facet arthrosis. No central canal or neural foraminal stenosis. L2-L3: Mild spondylitic spurring with small circumferential annular disc bulge. Moderate facet arthr osis with facet effusions. Flattening of the ventral thecal sac without significant central canal or right foraminal stenosis. Mild inferior left foraminal narrowing. L3-L4: Spondylitic spurring with small circumferential annular disc bulge. Ligamentum flavum thicken ing with moderate facet arthrosis and bilateral facet effusions. No central canal stenosis. Mild left with mild to moderate right neural foraminal narrowing. L4-L5: Mild spondylitic spurring with ligamentum thickening, moderate facet arthrosis and right grea ter than left facet effusions. Central canal is patent. Mild right with [id number]-[id number] left neural foraminal narrowing. L5-S1: Mild spondylitic spurring with mild to moderate facet arthrosis. No central canal or neural f oraminal stenosis. No abnormal enhancement. IMPRESSION: 1. Mild discogenic degeneration with mostly moderate facet arthrosis. There is no high-grade central canal or neural foraminal narrowing. 2. Diffuse heterogeneity of the marrow, likely secondary to bone demineralization. There was no evide nce of bony metastatic disease on the comparison PET/CT from 06/06/2022. 3. No abnormal enhancement. ACT 112: Negative or not required by law. The above report was generated using voice recognition software. It may contain grammatical, syntax o r spelling errors. Dictated: 07/21/2022 2:20 PM Transcribed: 07/21/2022 3:07 PM Hayley [id number] [email or web address] Electronically signed by: Vlad Shelton M.D. 07/21/2022 4:13 PM
[2022-07-21] MEDS: PEPTAMEN 1.5 CAL 1,000 ML BAG GT SCH (21:03)
[2022-07-22] MEDS: SODIUM CHLORIDE 0.9% 1000ML 1,000 ML IV SCH (03:21)
[2022-07-22] MEDS: TUBE FEEDING WATER FLUSH GT SCH ×2 (06:17→18:32)
[2022-07-22] MEDS: [UNRECOGNIZED DRUG - REMARK] SCH (06:17)
[2022-07-22] MEDS: PANTOprazole 40 MG in SYRINGE 0 ML IV SCH (08:09)
[2022-07-22] MEDS: dexAMETHasone 6 MG in SYRINGE 0 ML IV SCH ×2 (08:09→20:29)
[2022-07-22] MEDS: LIDOCAINE 5% 1 PATCH TD SCH (08:10)
[2022-07-22 08:39] LABS: Alanine Aminotransferase 14 U/L (7-52); Albumin Globulin Ratio 0.8 (0.9-2); Albumin Level 2.6 gm/dl (3.4-5.0); Alkaline Phosphatase 53 U/L (34-104); Anion Gap 4 (3-11); Aspartate Aminotransferase 44 U/L (13-39); BUN Creatinine Ratio 72.4 (10-20); Bilirubin,Total 0.2 mg/dl (0.2-1.0); Blood Urea Nitrogen 55 mg/dl (6-23); C Reactive Protein < 0.50 mg/dl (0-0.5); Calcium 8.2 mg/dl (8.5-10.1); Carbon Dioxide 24 mmol/L (21-32); Chloride 105 mmol/L (98-107); Creatine Kinase 290 U/L (26-192); Est GFR (African American) 90.2 ml/min; Est GFR (Non-African American) 77.8 ml/min; Globulin 3.1 gm/dl (2.5-4.0); Glucose 111 mg/dl (70-99(Fasting)); Potassium 4.1 mmol/L (3.5-5.1); Sodium 133 mmol/L (136-145); Total Protein 5.7 gm/dl (6.0-8.3)
[2022-07-22 08:42] LABS: Hematocrit (blood only) 19.4 % (34.1-44.9); Hemoglobin 6.4 g/dl (12.0-16.0)
[2022-07-22 08:45] LABS: Mean Corpuscular Hemoglobin 32.5 pg (25.0-34.0); Mean Corpuscular Volume 98.5 fL (80.0-100.0); Mean Platelet Volume 11.7 fL (9.4-12.3); Platelet Count 106 K/uL (130-400); RDW Coefficient of Variation 14.9 % (11.5-14.5); RDW Standard Deviation 53.4 fL (36.4-46.3); Red Blood Count 1.97 M/uL (3.93-5.22); White Blood Count 6.93 K/ul (4.8-10.8)
[2022-07-22 08:46] LABS: Platelet Estimate Normal (Normal); RBC Morphology Unremarkable
[2022-07-22] MEDS: CYANOCOBALAMIN (B-12) 500 MCG TABLET PO SCH (09:06)
[2022-07-22] MEDS ORDERED: SODIUM CHLORIDE 0.9% 250 ML IV PRN ×2 (09:09→10:52)
[2022-07-22] MEDS: HEPARIN SOD 5,000 UNIT/0.5 ML VIAL SQ SCH ×2 (10:33→20:29)
[2022-07-22] MEDS: ACETAMINOPHEN SUSP 1000 MG/31.2 ML UDP PO ONE ×2 (11:47→11:49)
[2022-07-22 16:08] LABS: Hematocrit (blood only) 24.1 % (34.1-44.9); Hemoglobin 8.2 g/dl (12.0-16.0)
[2022-07-22 16:27] LABS: Iron 130 mcg/dl (35-150); Total Iron Binding Cap Calc 233 mcg/dl (250-450); Transferrin (FE) Percent Satur 56 % (15-50); Unsaturated Iron Binding Cap 103 mcg/dl (155-355)
--- NOTE | 2022-07-22 20:01 | Hospitalist Progress Note ---
Date of Service July 22, 2022 Assessment & Plan (1) Pancytopenia: Plan: etiology? present since her cancer dx earlier in 2021, and last chemo was April -- thus not chemo-induced TSH wnl B12 low-normal but doubt playing a role - supplementing B12 to be complete folate wnl anaplasmosis smear negative consider viral studies (parvo, mono, etc) will check a formal peripheral smear in am Hb <7 today -- Tx 1 unit of PRBCs repeat H/H following the infusion no overt signs of GI bleeding but if she has a stool will obtain fecal occult (2) Low back pain: Plan: She c/o lumbar back pain with radiation of that pain into the buttocks/upper posterior thighs. She presented with weakness of both hips. x-rays both hips with mild-mod OA but this would not explain her weakness. MRI lumbar spine with and w/o contrast with DJD but likely does not explain her symptoms. CPK mildly elevated - could be an explanation for some of her prox muscle weakness. If she has a myopathy there should be a response to IV steroids. CRP is 0. Sed rate noted. Replace low-normal B12. Consider MRI brain. Consider neurology consultation. (3) Weakness: Plan: see #1 above could she have a paraneoplastic syndrome from her cancer? other?? (4) Malignant neoplasm of central portion of left breast in female, estrogen receptor negative: Plan: PET-CT in May without distant mets if weakness continues and work-up is negative consider repeat CT chest/abd/pelvis (5) Former smoker: Plan: noted (6) PEG (percutaneous endoscopic gastrostomy) status: Plan: cont night-time tube feedings per home regimen nutrition consult to ensure current regimen provides all necessary calories and nutrients patient has strong desire to take oral nutrition but c/o dysphagia she had a normal EGD of the esophagus in January dysphagia has been present since about that time speech therapy consultation appreciated video swallow tomorrow consider a barium swallow as well (7) Chronic obstructive pulmonary disease: Plan: no flare at this time (8) Elevated AST (SGOT): Plan: chronic due to elevated CPK? (9) Severe protein-calorie malnutrition: Plan: 2nd to breast ca (10) Hypertension: Plan: BPs controlled at this time without meds (11) Hyponatremia: Plan: with high BUN likely some element of volume depletion continue NS hydration thru tonight then stop fluids repeat BMP in am if Na is stubborn to correct then serum osm, urine osm, urine Na Plan DVT proph - high risk of DVT due to h/o cancer, poor mobility -- heparin 5000 BID PT, OT evals pending Admission and Anticipated Discharge Date Admission Date: July 20, 2022 Subjective no major issues overnight during my rounds speech therapy stopped by - video swallow eval planned for tomorrow patient states she was able to get to the commode this am with assistance without much pain no worsening of her low back pain denies any new complaints we discussed blood transfusion today - written consent obtained Review of Systems Review of Systems: cv - no orthopnea, no cp pulm - no dyspnea, no cough GI - no nausea/emesis/pain; tolerating nocturnal tube feedings Physical Exam Physical Exam: gen - very thin/cachectic, NAD, pleasant - unchanged from yesterday skin - generalized pallor mouth - MMM, no thrush or lesions neck - no JVD heart - RRR, s1 s2, no murmur lungs - CTA b/l abd - soft NT ND BS+; PEG tube site clean ext - no edema, pulses 2+ b/l neuro - hip flexion strength b/l is improved today, about 4/5 b/l or slightly even better than that; distal strength of feet 5/5 psych - a/o x 3 Results & Data Results & Data ([facility]) Vital Signs (Past 12 Hours) Vital Signs Temp Pulse Resp BP Pulse Ox 07/22/22 14:05 36.4 C L 66 18 146/67 H 97 07/22/22 13:23 36.2 C L 80 16 146/67 H 98 07/22/22 12:23 36.5 C 66 16 134/75 98 07/22/22 11:53 36.4 C L 66 18 144/73 H 98 07/22/22 11:38 36.5 C 72 18 145/77 H 97 07/22/22 11:23 36.6 C 78 18 162/79 H 97 Laboratory Results Laboratory Results - last 24 hr 07/22/22 07/22/22 07/22/22 07:33 07:33 07:33 WBC 6.93 RBC 1.97 L Hgb 6.4 L* Hct 19.4 L* MCV 98.5 MCH 32.5 MCHC 33.0 RDW Std Deviation 53.4 H RDW Coeff of Emil 14.9 H Plt Count 106 L MPV 11.7 Platelet Estimate Normal RBC Morphology Unremarkable ESR 38 H Sodium 133 L Potassium 4.1 Chloride 105 Carbon Dioxide 24 Anion Gap 4 BUN 55 H Creatinine 0.76 Est Cr Clr Drug Dosing 43.0 Est GFR ( Amer) 90.2 Est GFR (Non-Af Amer) 77.8 BUN/Creatinine Ratio 72.4 H Glucose 111 H Calcium 8.2 L Iron TIBC Unsaturated IBC Transferrin % Sat Total Bilirubin 0.2 AST 44 H ALT 14 Alkaline Phosphatase 53 Total Creatine Kinase 290 H C-Reactive Protein < 0.50 Total Protein 5.7 L Albumin 2.6 L Globulin 3.1 Albumin/Globulin Ratio 0.8 L Anaplasma Smear See Comment Blood Type Antibody Screen Crossmatch 07/22/22 07/22/22 07/22/22 09:32 16:00 16:00 WBC RBC Hgb 8.2 L Hct 24.1 L MCV MCH MCHC RDW Std Deviation RDW Coeff of Emil Plt Count MPV Platelet Estimate RBC Morphology ESR Sodium Potassium Chloride Carbon Dioxide Anion Gap BUN Creatinine Est Cr Clr Drug Dosing Est GFR ( Amer) Est GFR (Non-Af Amer) BUN/Creatinine Ratio Glucose Calcium Iron 130 TIBC 233 L Unsaturated IBC 103 L Transferrin % Sat 56 H Total Bilirubin AST ALT Alkaline Phosphatase Total Creatine Kinase C-Reactive Protein Total Protein Albumin Globulin Albumin/Globulin Ratio Anaplasma Smear Blood Type B Positive Antibody Screen NEGATIVE Crossmatch See Detail PG Care Time/CCT Total # of Minutes Spent Total Time Spent with Patient: Total time spent is greater than 50% in coordination of care (as documented) at patient's floor/unit and/or counseling patient: Coding Level of Care Code 66615 Subseq Hosp Care Lvl 3 Diagnoses Pancytopenia D61.818 Low back pain M54.50 Weakness R53.1 Malignant neoplasm of central portion of left breast in female, estrogen receptor negative C50.112; Z17.1 Former smoker Z87.891 PEG (percutaneous endoscopic gastrostomy) status Z93.1 Chronic obstructive pulmonary disease J44.9 Elevated AST (SGOT) R74.01 Severe protein-calorie malnutrition E43 Hypertension I10 Hypertension type: primary hypertension Hyponatremia E87.1 (1) Hypertension Hypertension type: primary hypertension Qualified Code(s): I10 - Essential (primary) hypertension
[2022-07-22] MEDS: PEPTAMEN 1.5 CAL 1,000 ML BAG GT SCH (21:39)
[2022-07-23] MEDS: [UNRECOGNIZED DRUG - REMARK] SCH (06:09)
[2022-07-23] MEDS: POLYETHYLENE (MIRALAX) 17 GM PACK PO PRN (06:09)
[2022-07-23] MEDS: TUBE FEEDING WATER FLUSH GT SCH ×3 (06:09→20:22)
[2022-07-23] MEDS: HEPARIN 100 UNIT/ML 5ML FLUSH FLUSH PRN ×2 (08:04→08:32)
[2022-07-23] MEDS: HEPARIN SOD 5,000 UNIT/0.5 ML VIAL SQ SCH ×2 (08:18→20:00)
[2022-07-23] MEDS: CYANOCOBALAMIN (B-12) 500 MCG TABLET PO SCH (08:19)
[2022-07-23] MEDS: LIDOCAINE 5% 1 PATCH TD SCH (08:19)
[2022-07-23] MEDS: dexAMETHasone 6 MG in SYRINGE 0 ML IV SCH (08:19)
[2022-07-23] MEDS: PANTOprazole 40 MG TAB PO SCH ×2 (08:19→08:21)
[2022-07-23 08:39] LABS: Basophils # (auto) 0.01 K/uL (0-0.2); Basophils % (auto) 0.1 %; Hematocrit (blood only) 24.2 % (34.1-44.9); Hemoglobin 8.2 g/dl (12.0-16.0); Immature Granulocytes # (auto) 0.14 K/uL (0.00-0.02); Immature Granulocytes % (auto) 2.1 %; Lymphocytes % (auto) 17.9 %; Mean Corpuscular Hemoglobin 32.3 pg (25.0-34.0); Mean Corpuscular Hgb Conc 33.9 g/dL (32.0-36.0); Mean Corpuscular Volume 95.3 fL (80.0-100.0); Mean Platelet Volume 10.7 fL (9.4-12.3); Monocytes # (auto) 1.24 K/uL (0.24-0.82); Monocytes % (auto) 18.5 %; Neutrophils # (auto) 4.13 K/uL (1.4-6.5); Neutrophils % (auto) 61.4 %; Platelet Count 123 K/uL (130-400); RDW Coefficient of Variation 15.7 % (11.5-14.5); RDW Standard Deviation 53.8 fL (36.4-46.3); Red Blood Count 2.54 M/uL (3.93-5.22); White Blood Count 6.72 K/ul (4.8-10.8)
[2022-07-23 09:08] LABS: BUN Creatinine Ratio 73.4 (10-20); Calcium 8.1 mg/dl (8.5-10.1); Creatinine Clr Calc Pharmacy 41.4 ml/min; Est GFR (African American) 86.1 ml/min; Est GFR (Non-African American) 74.3 ml/min; Potassium 4.1 mmol/L (3.5-5.1)
[2022-07-23] MEDS ORDERED: GLYCERIN ADULT 12 SUPP/BOX SUPP PR ONE (11:09)
--- NOTE | 2022-07-23 12:52 | Palliative Care Progress Note ---
Date of Service July 23, 2022 Assessment & Plan (1) Generalized weakness: Plan: She does have generalized weakness but also appears to have more muscle weakness proximally than distally. She is anxious to work with PT. (2) Low back pain: Plan: Improved with steroid. Given proximal muscle weakness, will start slow taper. (3) Constipation: Plan: Her po intake is limited due to dysphagia and her mobility is decreased but she does have continuous tube feeding at night. No response to miralax. She can feel hard stool in rectum, will add glycerin suppository. 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 She has very limited ROM in left shoulder and has asked to delay radiation therapy for a few weeks. She very much wants to get treatment and "get better". To her, that means being able to be independent with ADLs and possibly driving. One of the hardest parts about her illness has been having to depend on others for her care. She has great support from her daughter, Gilda and support from her SO who lives in [place]. She does note that the separation from her SO has added another layer of adjustment to her illness. Admission and Anticipated Discharge Date Admission Date: July 20, 2022 Subjective Sitting in chair at bedside. Able to transfer with assistance. Denies pain with transfer. She has not used any of prn pain medication and denies pain at this time. She does complain of constipation. She has been having small, hard BMs but feels distended with some mild nausea. She has had miralax daily for the last two days. Review of Systems Review of Systems: Negative other than history and ESAS ESAS Pain 0/3 Dyspnea 0/3 Anxiety 1/3 Fatigue 2/3 Nausea 1/3 Drowsiness 0/3 PPS 40% Physical Exam Constitutional: + cachectic and + frail appearing ENMT: Mouth: oral mucous membranes not dry Respiratory: normal respiratory effort; no labored breathing Gastrointestinal (Abdomen): distended Musculoskeletal: Extremities: + muscle atrophy Skin: warm and dry Neurologic: Speech / Cognition: normal cognition Results & Data ([facility]) Vital Signs (Past 12 Hours) Vital Signs Temp Pulse Resp BP Pulse Ox O2 Del Method 07/23/22 07:32 98.1 F 69 12 125/72 97 Room Air PG Care Time/CCT Total # of Minutes Spent Total Time Spent: 38 Total Time Spent with Patient: Total time spent is greater than 50% in coordination of care (as documented) at patient's floor/unit and/or counseling patient: symptom management, patient education and support Coding Level of Care Code 52173 Subseq Hosp Care Lvl 3 Diagnoses Generalized weakness R53.1 Low back pain M54.50 Constipation K59.00 Palliative care encounter Z51.5
--- NOTE | 2022-07-23 13:12 | Neurology Consultation ---
Date of Consultation July 23, 2022 Assessment & Plan (1) Generalized weakness: (2) Leg weakness, bilateral: (3) Peripheral neuropathy: Plan 75-year-old female with locally advanced breast cancer diagnosed this past December, treated with carboplatin, docetaxel, trastuzumab, pertuzumab. Now presenting with generalized musculoskeletal pain, especially the hips and thighs, associated weakness, especially the legs. Does have evidence of peripheral neuropathy on examination although patellar tendon reflexes are also relatively increased, thoracic myelopathy not excluded. All of the above chemotherapy agents have been associated with peripheral neuropathy. Trastuzumab and pertuzumab are also associated with muscle pain and weakness. Therefore, I believe that her current symptoms are more likely than not related to her chemotherapy regimen for breast cancer. Because her patellar tendon reflexes are relatively increased, and occur in the context of bilateral lower extremity weakness, I would recommend an MRI of the thoracic spine with and without contrast to exclude a thoracic myelopathy due to myelitis or metastatic disease. I do note that she does not have significant thoracic spinal pain, however. We need to consult with hematology oncology regarding making an adjustment in patient's chemotherapy regimen if feasible. Would recommend a trial of duloxetine starting with 30 mg/day, uptitrate to 60 mg/day after 1 to 2 weeks depending on response and tolerability. Would recommend an outpatient 4 limb EMG/NCV, with repetitive stimulation. Would consider checking a [facility], serum, neocomplete paraneoplastic evaluation. However, I am uncertain if results of this testing would impact patient's management. History of Present Illness Reason for Consultation: Leg weakness, elevated CK Requesting Physician: Dr. Hernandez Attending Physician: Se Hernandez History of Present Illness The patient is a 71-year-old female with a history of locally advanced left breast cancer diagnosed this past December, started adjuvant chemotherapy with TCHP on January 25, 2022. Condition further complicated by GI bleeding, bacteremia, failure to thrive. History also notable for recent COVID infection with residual cough and shortness of breath. She presented to the emergency department July 18, 2022 with concern for possible infection and a complaint of generalized pain. She complains of bilateral hip and thigh pain, worse with movement. She complains of associated weakness, unable to stand up or walk. She denies numbness or paresthesias of the limbs. She complains of low back pain.. She has difficulty lifting her legs out of the bed against gravity. She has bilateral special education assistant weakness as well. She denies experiencing any ptosis or diplopia. She does complain of some difficulty swallowing. Current issues in the context of this current hospitalization include pancytopenia, low back pain, mildly elevated CPK, weakness, breast cancer as above, PEG status, COPD, severe protein calorie malnutrition, hyponatremia. PET scan, tumor imaging skull to midthigh completed at [facility] June 06, 2022 suggested positive treatment response, markedly decreased size and FDG avidity of the previously described left breast masses, metastatic left axillary and internal mammary chain lymphadenopathy. No evidence of new or progressive lymphadenopathy. No evidence of metastatic disease within the abdomen or pelvis. There was evidence of emphysema with right lower lobe predominant tree-in-bud nodules suggestive of an infectious or inflammatory bronchiolitis. Collapse of the right middle lobe likely secondary to mucous plugging. No hypermetabolic endobronchial lesions identified. Stable 6 mm groundglass nodule of the right lower lobe. An MRI of the lumbar spine completed July 21, 2022 revealed mild discogenic degeneration with mostly moderate facet arthrosis. No high-grade central canal or neuroforaminal narrowing. Diffuse heterogeneity of the marrow likely secondary to bone demineralization. No evidence of bony metastatic disease. No abnormal enhancement. I independently reviewed these images and was able to identify these findings as described by the interpreting radiologist. Hip and pelvis x-rays negative for acute fracture or dislocation. Allergies Allergy/AdvReac Type Severity Reaction Status Date / Time pistachio nut AdvReac Severe Red face Verified 07/18/22 18:42 and hands ~ Throwing up Home Medications Medication Instructions Recorded Confirmed Type ondansetron HCl 8 mg tablet 8 mg PO Q8H PRN Nausea 01/31/22 07/18/22 History prochlorperazine maleate 10 mg 10 mg PO Q6H PRN Nausea 01/31/22 07/18/22 History tablet (Compazine) tramadol 50 mg tablet 50 mg PO Q6H PRN Pain 01/31/22 07/18/22 History Tube Feeding Water Flush 250 ml G-tube UD #1 amp 02/08/22 07/18/22 Rx lorazepam 0.5 mg tablet (Ativan) 0.5 mg PO HS PRN sleep #5 tabs 02/08/22 07/18/22 Rx loratadine 5 mg-pseudoephedrine ER 1 tab PO BID PRN Congestion 02/23/22 07/18/22 History 120 mg tablet,extended release,12hr (Claritin-D 12 Hour) albuterol sulfate 90 mcg/actuation 1 inh inhalation QID PRN shortness 06/15/22 07/18/22 Rx aerosol inhaler of breath or wheezing or cough #8.5 grams nystatin 100,000 unit/mL oral 4 ml PO DAILY #250 mL 07/04/22 07/18/22 Rx suspension budesonide-formoterol HFA 160 2 puff inhalation BID #10.2 grams 07/06/22 07/18/22 Rx mcg-4.5 mcg/actuation aerosol inhaler (Symbicort) furosemide 20 mg tablet (Lasix) 20 mg PO DAILY PRN Fluid Retention 07/18/22 07/18/22 History loratadine 10 mg tablet (Claritin) 10 mg PO DAILY PRN Congestion 07/18/22 07/18/22 History ondansetron 4 mg disintegrating 4 mg PO Q8H PRN nausea and 07/18/22 Rx tablet vomiting 5 days #15 tabs Patient History Medical History Breast cancer Former smoker Hypertension Port-A-Cath in place Surgical History History of left mastectomy Hx of tonsillectomy PEG (percutaneous endoscopic gastrostomy) status Family History Mother Hypertension Sister Hypertension Brother Hypertension Father Lung cancer Social History Smoking Status: Current some day smoker Tobacco Type: Cigarettes Years Smoked: 40; Cigarettes Per Day: 3; Second Hand Exposure: No; Do You Dip or Chew Tobacco: No; Tobacco Cessation Education Requested by Patient: No Hx Alcohol Use: No Hx Substance Use: No Preferred Language: Bahraini Communication Ability: Effective Hearing Ability: Normal 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: Yes Beliefs That Will Affect Care: None marital status: / Current Living Situation: Family current occupational status: retired How many Children do You have: 1 Other Information That Helps Us Care for You: No Feels Safe at Home: Yes Diet Comment: Peg tube feeds, Boost daily; small amounts orally during the past year weight has: decreased > 10 lbs Dental Care, Regularly: Yes Physical Activity Frequency: Does not Exercise Seatbelt Use: always Do you think of yourself as: straight/heterosexual Gender Identity: Female Assistive Devices: Bedside Commode, Glasses and Walker Assistive Devices Comment: Daybed Review of Systems Constitutional: + body aches, + fatigue and + weakness Eyes: no blind spots, no diplopia and no eye pain Ear, Nose, Mouth, Throat: no hearing loss Respiratory: + cough and + dyspnea Cardiovascular: no chest pain Gastrointestinal: no nausea and no vomiting Genitourinary: no dysuria Musculoskeletal: + back pain, + myalgia and + muscle weakness Integumentary: no rash and no lesions Neurologic: as per Subjective / HPI Psychiatric: + depression Hematologic / Lymphatic: no easy bleeding and no easy bruising Exam (Neuro) Constitutional: well developed and well nourished; no acute distress Eyes: normal visual archuleta by confrontation, PERRL, normal accommodation and EOM intact bilaterally; no fundoscopic abnormality, no nystagmus and no papilledema Cardiovascular: Vessels: normal carotid upstroke; no carotid bruit Neurologic: Oriented to:: Person, Place and Time Memory: Short Term Intact and Remote Intact Attention: Span Intact and Concentration Intact Language: Naming Objects and Repeating Phrases Speech Fluency: negative Dysarthria Speech Aphasia: negative Aphasia Fund of Knowledge: Current Events, Past History and Vocabulary Cranial Nerves: Normal II (Visual archuleta full to confrontation, visual acuity normal), III, IV, (Pupils equal round reactive to light and accommodation, eye movements normal), V (Facial sensation intact), VII (There is no facial droop or weakness), VIII (Hearing intact), IX, X (Palate elevates to midline), XI (Shoulder shrug intact) and XII (Tongue protrudes to midline) Motor Strength: negative Normal Lower Extremities, Normal Upper Extremities or Pronator Drift Motor Tone: Normal Lower Extremities and Normal Upper Extremities Muscle Bulk/Involuntary Movements: No Involuntary Movements; negative Muscle Atrophy Sensation: Light Touch Intact and Proprioception Intact; negative Pain/Temperature Intact or Vibration Intact Coordination: Heel-Nguyen Abnormal; negative Finger-Nose Abnormal Deep Tendon Reflexes: Rt Triceps: 2+, Lt Triceps: 2+, Rt Biceps: 2+, Lt Biceps: 2+, Rt Brachioradialis: 1+, Lt Brachioradialis: 1+, Rt Patellar: 3+, Lt Patellar: 3+, Rt Ankle: 1+ and Lt Ankle: 1+ Details: Gait cannot be tested in the context of patient's current medical status. Bilateral special education assistant weakness, mild to moderate severity. Mild shoulder girdle weakness noted. Moderate hip girdle weakness. Bilateral foot drops noted. Results & Data ([facility]) Vital Signs (Past 12 Hours) Vital Signs Temp Pulse Resp BP Pulse Ox O2 Del Method 07/23/22 07:32 36.7 C 69 12 125/72 97 Room Air Coding Level of Care Code 78574 Initial Inpt Care Lvl 3 Diagnoses Generalized weakness R53.1 Leg weakness, bilateral R29.898 Peripheral neuropathy G62.9
--- NOTE | 2022-07-23 15:22 | Fluoroscopy Report ---
MODIFIED BARIUM SWALLOW CLINICAL HISTORY: r/o aspiration COMPARISON STUDY: None. FLUOROSCOPY TIME: 0.6 minutes. TECHNIQUE: A modified barium swallow was performed in conjunction with Speech Pathology. The patient ingested varying consistencies of barium containing material. Video fluoroscopy was performed. FINDINGS: Right sided [id number] is incidentally noted. Impaired swallowing mechanism was noted wi th diminished opening of the upper esophageal sphincter. This resulted in tracheal aspiration with de layed clearance of the thin liquids. No additional consistencies were evaluated given impaired swallo wing mechanism. IMPRESSION: 1. Impaired swallowing mechanism. Tracheal aspiration with thin liquids due to diminished upper esoph ageal sphincter opening and delayed clearance. 2. Full recommendations by Speech pathology to follow. ACT 112: Negative or not required by law. Electronically signed by: Regino Hayden M.D. 07/23/2022 3:21 PM
[2022-07-23] MEDS ORDERED: SOD PHOSPHATE/SOD BIPHOSPHATE ENEMA 132 ML BTL PR STA (15:25)
[2022-07-23] MEDS: LANSOPRAZOLE 30 MG SOLTAB PEG SCH (16:19)
[2022-07-23] MEDS ORDERED: ACETAMINOPHEN 325 MG TAB PEG PRN (17:17)
[2022-07-23] MEDS: HYDROCORTISONE HC 2.5% CRM 30GM TUBE EXT SCH ×2 (18:42→20:00)
[2022-07-23] MEDS: PEPTAMEN 1.5 CAL 1,000 ML BAG GT SCH (19:59)
[2022-07-23] MEDS: dexAMETHasone 4 MG in SYRINGE 0 ML IV SCH (19:59)
[2022-07-23] MEDS ORDERED: PEPTAMEN 1.5 CAL 1,000 ML BAG GT SCH (20:00)
--- NOTE | 2022-07-23 21:03 | Hospitalist Progress Note ---
Date of Service July 23, 2022 Assessment & Plan (1) Low back pain: Plan: She c/o lumbar back pain with radiation of that pain into the buttocks/upper posterior thighs at time of admission. She presented with weakness of both hips. She had also had diffuse myalgias/arthralgias - these are improved. x-rays both hips with mild-mod OA but this would not explain her weakness. MRI lumbar spine with and w/o contrast with DJD but this did not explain her symptoms. CPK mildly elevated - could be an explanation for some of her prox muscle weakness. If she has a myopathy there should be a response to IV steroids. However, she has not noted any significant difference since being on them. Palliative care had started the steroids - they will begin weaning them. CRP is 0. Sed rate noted. Replace low-normal B12. Consulted Dr Crowder [place] [facility] [place] appreciate his assistance. He recommended obtaining MRI t-spine to r/o cord lesion. See his note for other recommendations. I do believe her weakness HAS improved since the weekend. Cont PT/OT. (2) Weakness: Plan: see #1 above could she have a paraneoplastic syndrome from her cancer? other?? consider paraneoplastic syndrome panel. (3) Dysphagia: Plan: appreciate speech therapy consultation. video swallow results noted. ?recurrent laryngeal nerve impairment as cause of dysphagia? other etiology? patient initially had said her swallowing had been impaired since her cancer diagnosis earlier in 2021, but it has gotten significantly worse since her surgery (mastectomy). speech recs appreciated (full liquids only, meds via PEG, etc). consider GI consultation - any role for repeat EGD or other study? (4) Pancytopenia: Plan: etiology? present since her cancer dx earlier in 2021, and last chemo was April -- thus would be unusual to be chemo-induced TSH wnl B12 low-normal but doubt playing a role - supplementing B12 to be complete folate wnl anaplasmosis smear negative consider viral studies (parvo, mono, etc) peripheral smear -- no suspicious features of bone marrow problem s/p 1 unit of PRBCs over the weekend with stable H/H since fecal occult blood is negative repeat cbc am (5) Malignant neoplasm of central portion of left breast in female, estrogen receptor negative: Plan: PET-CT in May without distant mets if weakness continues and work-up is negative consider repeat CT chest/ abd/pelvis (6) Former smoker: Plan: noted (7) PEG (percutaneous endoscopic gastrostomy) status: Plan: cont night-time tube feedings per home regimen nutrition consult appreciated see "dysphagia" above (8) Chronic obstructive pulmonary disease: Plan: no flare at this time lungs clear (9) Elevated AST (SGOT): Plan: chronic due to elevated CPK? (10) Severe protein-calorie malnutrition: Plan: 2nd to breast ca cont PEG feedings at HS supplement liquid PO feedings during the day (11) Hypertension: Plan: BPs controlled at this time without meds (12) Hyponatremia: Plan: Na 134 today and stable repeat BMP am (13) Constipation: Plan: improved s/p enema today with good results cont bowel regimen Plan DVT proph - high risk of DVT due to h/o cancer, poor mobility -- heparin 5000 BID PT OT maria g appreciated daughter updated at bedside care d/w speech, neurology Admission and Anticipated Discharge Date Admission Date: July 20, 2022 Subjective saw patient late in the day pt's daughter was at bedside pt had her video swallow today significantly impaired swallow function noted of the UES ?recurrent laryngeal nerve dysfunction? etiology of such? patient frustrated by results of her video swallow she has an appetite and wants to eat food pt and daughter ask about next steps for dysphagia discussed possibly involving [facility] in her care - utility of repeat EGD or other study? pt's LE weakness continues but is improved PT, OT saw her today - she did work with them Review of Systems Review of Systems: gen - fatigue, weak cv - no cp, no orthopnea pulm - no dyspnea at rest GI - no pain but had needed enema today - had large, very hard BM; now hemorrhoids are bothering her Physical Exam Physical Exam: gen - very thin/cachectic, NAD; upset, tearful at times skin - generalized pallor mouth - MMM, no thrush or lesions neck - no JVD heart - RRR, s1 s2, no murmur lungs - CTA b/l abd - soft NT ND BS+; PEG tube site clean ext - no edema, pulses 2+ b/l neuro - hip flexion strength b/l again improved today, about 4/5 b/l; distal strength of feet 5/5 psych - a/o x 3 Results & Data Results & Data ([facility]) Vital Signs (Past 12 Hours) Vital Signs Temp Pulse Resp BP Pulse Ox O2 Del Method 07/23/22 15:22 36.6 C 66 16 156/75 H 96 Room Air Laboratory Results Laboratory Results - last 24 hr 07/23/22 07/23/22 07/23/22 08:01 08:01 09:33 Peripher Smr Path Cons Sodium 134 L Potassium 4.1 Chloride 105 Carbon Dioxide 24 Anion Gap 5 BUN 58 H Creatinine 0.79 Est Cr Clr Drug Dosing 41.4 Est GFR ( Amer) 86.1 Est GFR (Non-Af Amer) 74.3 BUN/Creatinine Ratio 73.4 H Glucose 90 Calcium 8.1 L Total Creatine Kinase 236 H Stool Occult Bld Scrn Negative PG Care Time/CCT Total # of Minutes Spent Total Time Spent with Patient: Total time spent is greater than 50% in coordination of care (as documented) at patient's floor/unit and/or counseling patient: Coding Level of Care Code 18755 Subseq Hosp Care Lvl 3 Diagnoses Low back pain M54.50 Weakness R53.1 Dysphagia R13.10 Pancytopenia D61.818 Malignant neoplasm of central portion of left breast in female, estrogen receptor negative C50.112; Z17.1 Former smoker Z87.891 PEG (percutaneous endoscopic gastrostomy) status Z93.1 Chronic obstructive pulmonary disease J44.9 Elevated AST (SGOT) R74.01 Severe protein-calorie malnutrition E43 Hypertension I10 Hypertension type: primary hypertension Hyponatremia E87.1 Constipation K59.00 (1) Hypertension Hypertension type: primary hypertension Qualified Code(s): I10 - Essential (primary) hypertension
[2022-07-23] MEDS: HYDROCODONE/ACETAMOPHEN 5/325MG TAB PO PRN (23:56)
[2022-07-23] MEDS: LORazepam 0.5 MG TAB PO PRN (23:57)
[2022-07-24] MEDS: CYANOCOBALAMIN (B-12) 500 MCG TABLET PEG SCH (08:16)
[2022-07-24] MEDS: LANSOPRAZOLE 30 MG SOLTAB PEG SCH (08:16)
[2022-07-24] MEDS: dexAMETHasone 6 MG in SYRINGE 0 ML IV SCH (08:17)
[2022-07-24] MEDS: HEPARIN SOD 5,000 UNIT/0.5 ML VIAL SQ SCH ×3 (08:18→21:14)
[2022-07-24] MEDS: LIDOCAINE 5% 1 PATCH TD SCH ×2 (08:18→14:44)
[2022-07-24] MEDS: HYDROCORTISONE HC 2.5% CRM 30GM TUBE EXT SCH ×3 (08:19→21:14)
[2022-07-24] MEDS: HEPARIN 100 UNIT/ML 5ML FLUSH FLUSH PRN (08:30)
[2022-07-24 09:00] LABS: Basophils # (auto) 0.01 K/uL (0-0.2); Basophils % (auto) 0.1 %; Eosinophils # (auto) 0.01 K/uL (0-0.50); Eosinophils % (auto) 0.1 %; Hematocrit (blood only) 24.6 % (34.1-44.9); Hemoglobin 8.2 g/dl (12.0-16.0); Immature Granulocytes # (auto) 0.12 K/uL (0.00-0.02); Immature Granulocytes % (auto) 1.7 %; Lymphocytes # (auto) 1.38 K/uL (1.2-3.4); Mean Corpuscular Hemoglobin 32.4 pg (25.0-34.0); Mean Corpuscular Hgb Conc 33.3 g/dL (32.0-36.0); Mean Corpuscular Volume 97.2 fL (80.0-100.0); Mean Platelet Volume 10.9 fL (9.4-12.3); Monocytes # (auto) 1.28 K/uL (0.24-0.82); Monocytes % (auto) 17.6 %; Neutrophils # (auto) 4.46 K/uL (1.4-6.5); Neutrophils % (auto) 61.5 %; Platelet Count 111 K/uL (130-400); RDW Coefficient of Variation 15.3 % (11.5-14.5); RDW Standard Deviation 53.2 fL (36.4-46.3); Red Blood Count 2.53 M/uL (3.93-5.22); White Blood Count 7.26 K/ul (4.8-10.8)
[2022-07-24 09:26] LABS: BUN Creatinine Ratio 69.5 (10-20); Creatinine Clr Calc Pharmacy 39.8 ml/min; Est GFR (African American) 82.3 ml/min; Potassium 3.7 mmol/L (3.5-5.1)
--- NOTE | 2022-07-24 10:23 | Palliative Care Progress Note ---
Date of Service July 24, 2022 Assessment & Plan (1) Low back pain: Plan: Improved. MRI lumbar spine was negative for bony mets or nerve impingement. MRI thoracic spine is pending. Continue steroids for now with lidocaine patches and prn hydrocodone. She has had one prn hydrocodone in the last 24 hours. (2) Generalized weakness: Plan: She is generally weak but does have specific proximal muscle weakness. MRI pending. Neurology following. She continues to work with PT. (3) Constipation: Plan: Very large BM yesterday. Will continue daily miralax and monitor. She has poor po intake but is getting enteral nutrition. (4) Dysphagia: Plan: Severe oropharyngeal dysphagia on video swallow. Tracheal aspiration of thin liquids noted on barium swallow. She is on enteral feedings with some pureed po. (5) Palliative care encounter: Plan: Hayley has mentioned several times that her goal is to live for another 5-10 years. She would like to have a small house here in the area with her significant other. She asked me if everything that she's going through is "normal". We discussed typical course of ups and downs cancer treatment and I reassured her that we will continue to work on helping her build strength for further treatment if possible and be honest if that is not possible. Admission and Anticipated Discharge Date Admission Date: July 20, 2022 Subjective Denies pain currently. Had some pain in left breast last evening which was relieved with hydrocodone/APAP. She had large BM after miralax, suppository and Fleets. Review of Systems Review of Systems: ESAS Pain 0/3 Dyspnea 0/3 Anxiety 1/3 Fatigue 2/3 Nausea 0/3 Drowsiness 0/3 PPS 40% Physical Exam Constitutional: + cachectic and + frail appearing Respiratory: normal respiratory effort; no labored breathing Gastrointestinal (Abdomen): Inspection/Auscultation: abdomen not distended Musculoskeletal: Extremities: + muscle atrophy Skin: warm and dry Neurologic: Speech / Cognition: normal cognition Results & Data ([facility]) Vital Signs (Past 12 Hours) Vital Signs Temp Pulse Resp BP Pulse Ox O2 Del Method 07/24/22 07:17 97.9 F 74 16 125/59 L 96 Room Air PG Care Time/CCT Total # of Minutes Spent Total Time Spent: 25 Total Time Spent with Patient: Total time spent is greater than 50% in coordination of care (as documented) at patient's floor/unit and/or counseling patient:symptom managment, patient education and support Coding Level of Care Code 12318 Subseq Hosp Care Lvl 2 Diagnoses Low back pain M54.50 Generalized weakness R53.1 Constipation K59.00 Dysphagia R13.10 Palliative care encounter Z51.5
--- NOTE | 2022-07-24 10:28 | Gastrointestinal Consultation ---
Date of Consultation July 24, 2022 Assessment & Plan (1) Constipation: (2) Dysphagia: Plan Discussed case wt Dr. Go who advised on plan. - follow speech path recommendations. since Videofluoroscopy suggestive of oropharyngeal issues would advise ENT or surgical evaluation given question of recurrent laryngeal nerve issues. - continue miralax 17gm daily for constipation. - no esophageal issues noted on EGD 01/2022. no plan to rescope at this time. - check celiac panel given duodenal findings on last EGD. Supervising Physician Co-Signing Physician Notes I personally evaluated the patient and agree with the findings as documented by Marlon Starr PAC Exam: Constitutional: WD/WN, vitals as above General: EOM intact bilaterally Neck: normal visual inspection Respiratory: normal respiratory effort, lungs clear to auscultation Cardiovascular: RRR, no murmur, no edema Gastrointestinal: abdomennormal to inspection, nondistended, soft, nontender, no hepatosplenomegaly Musculoskeletal: no cyanosis, head normal to inspection Skin: no rashes, warm and dry Neurologic: moves all extremities Psychiatric: A and O x3, euthymic affect History of Present Illness Reason for Consultation: Dysphagia Requesting Physician: Jame Hernandez Attending Physician: Mackenzie Calhoun MD History of Present Illness Patient is a 71 year old female with a past medical history of stage III left- sided breast cancer status post chemotherapy and mastectomy, hypertension who has complaints of 2 weeks of dysphagia since she had mastectomy. she points to her lower neck as to the area of dysphagia. She had Video Fluoroscopy suggestive impaired swallowing mechanism with tracheal aspiration of thin liquids with diminished upper esophageal sphincter opening and delayed clearance. Speech note also questions issues with the recurrent laryngeal nerve and suggests that this may take time to heal per speech note. she can get some constipation with pain medications. can go days between bowel movements. EGD 01/2022 peg placed, normal esophagus, normal stomach, mucosal changes in duodenum. path suggestive of possible celiac component. Patient denies any current issues with nausea, vomiting, heartburn, abdominal pain, unintentional weight loss, melena, or bright red blood per rectum. Allergies Allergy/AdvReac Type Severity Reaction Status Date / Time pistachio nut AdvReac Severe Red face Verified 07/18/22 18:42 and hands ~ Throwing up Home Medications Medication Instructions Recorded Confirmed Type ondansetron HCl 8 mg tablet 8 mg PO Q8H PRN Nausea 01/31/22 07/18/22 History prochlorperazine maleate 10 mg 10 mg PO Q6H PRN Nausea 01/31/22 07/18/22 History tablet (Compazine) tramadol 50 mg tablet 50 mg PO Q6H PRN Pain 01/31/22 07/18/22 History Tube Feeding Water Flush 250 ml G-tube UD #1 amp 02/08/22 07/18/22 Rx lorazepam 0.5 mg tablet (Ativan) 0.5 mg PO HS PRN sleep #5 tabs 02/08/22 07/18/22 Rx loratadine 5 mg-pseudoephedrine ER 1 tab PO BID PRN Congestion 02/23/22 07/18/22 History 120 mg tablet,extended release,12hr (Claritin-D 12 Hour) albuterol sulfate 90 mcg/actuation 1 inh inhalation QID PRN shortness 06/15/22 07/18/22 Rx aerosol inhaler of breath or wheezing or cough #8.5 grams nystatin 100,000 unit/mL oral 4 ml PO DAILY #250 mL 07/04/22 07/18/22 Rx suspension budesonide-formoterol HFA 160 2 puff inhalation BID #10.2 grams 07/06/2207/18 Rx mcg-4.5 mcg/actuation aerosol inhaler (Symbicort) furosemide 20 mg tablet (Lasix) 20 mg PO DAILY PRN Fluid Retention 07/18/22 07/18/22 History loratadine 10 mg tablet (Claritin) 10 mg PO DAILY PRN Congestion 07/18/22 07/18/22 History ondansetron 4 mg disintegrating 4 mg PO Q8H PRN nausea and 07/18/22 Rx tablet vomiting 5 days #15 tabs Patient History Medical History Breast cancer Former smoker Hypertension Port-A-Cath in place Surgical History History of left mastectomy Hx of tonsillectomy PEG (percutaneous endoscopic gastrostomy) status Family History Mother Hypertension Sister Hypertension Brother Hypertension Father Lung cancer Social History Smoking Status: Current some day smoker Tobacco Type: Cigarettes Years Smoked: 40; Cigarettes Per Day: 3; Second Hand Exposure: No; Do You Dip or Chew Tobacco: No; Tobacco Cessation Education Requested by Patient: No Hx Alcohol Use: No Hx Substance Use: No Preferred Language: Central African Communication Ability: Effective Hearing Ability: Normal 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 Beliefs That Will Affect Care: Jainism marital status: / Current Living Situation: Family current occupational status: retired How many Children do You have: 1 Other Information That Helps Us Care for You: No Feels Safe at Home: Yes Diet Comment: Peg tube feeds, Boost daily; small amounts orally during the past year weight has: decreased > 10 lbs Dental Care, Regularly: Yes Physical Activity Frequency: Does not Exercise Seatbelt Use: always Do you think of yourself as: straight/heterosexual Gender Identity: Female Assistive Devices: Bedside Commode, Glasses and Walker Assistive Devices Comment: Daybed Review of Systems Review of Systems: All systems reviewed & are unremarkable except as noted in HPI & below Physical Exam Constitutional: WD/WN, vitals as above Respiratory: normal respiratory effort, lungs clear to auscultation Cardiovascular: RRR, no murmur, no edema Gastrointestinal (Abdomen): normal bowel sounds, soft, nontender, no hepatosplenomegaly Skin: no rashes, warm and dry Psychiatric: Orientation: alert and oriented x 3 Affect: euthymic affect Results & Data ([facility]) Vital Signs (Past 12 Hours) Vital Signs Temp Pulse Resp BP Pulse Ox O2 Del Method 07/24/22 07:17 36.6 C 74 16 125/59 L 96 Room Air PG Care Time/CCT Total # of Minutes Spent Total Time Spent with Patient: Total time spent is greater than 50% in coordination of care (as documented) at patient's floor/unit and/or counseling patient: Coding Level of Care Code 69351 Initial Inpt Care Lvl 3 Diagnoses Constipation K59.00 Dysphagia R13.10
[2022-07-24] MEDS: TUBE FEEDING WATER FLUSH GT SCH ×3 (10:39→21:10)
[2022-07-24] MEDS ORDERED: [UNRECOGNIZED DRUG - REMARK] ONE (11:00)
[2022-07-24] MEDS: HYDROCODONE/ACETAMOPHEN 5/325MG TAB PO PRN ×2 (11:23→21:14)
[2022-07-24] MEDS ORDERED: GADOBUTROL 65ML VIAL IV ONE (12:13)
--- NOTE | 2022-07-24 16:01 | Magnetic Resonance Report ---
MRI OF THE THORACIC SPINE WITH AND WITHOUT CONTRAST CLINICAL HISTORY: Breast cancer, lower extremity weakness. COMPARISON: PET/CT June 06, 2022. TECHNIQUE: Utilizing a 1.5 Radha magnet and dedicated coil, multiplanar, multiecho imaging of the th oracic spine was performed before and after the intravenous administration of 4 cc. FINDINGS: Alignment of the thoracic spine is anatomic. Vertebral body heights are maintained. There i s no thoracic spine fracture. Thoracic spine marrow signal is heterogeneous but there are no findings to strongly suggest skeletal metastatic disease within the thoracic spine. Thoracic cord signal and caliber are normal. There is no abnormal cord enhancement. No intracanalicular mass, fluid collection or abnormal enhancement is noted on the postcontrast images. Paravertebral soft tissues are unremark able. Central canal and neural foramen are patent. There is no disc herniation. IMPRESSION: 1. Normal thoracic cord signal and caliber. Patent central canal and neural foramen. No thoracic spin e disc herniations. 2. Marrow signal heterogeneity, probably within normal limits. No convincing evidence for skeletal me tastatic disease within the thoracic spine. ACT 112: Negative or not required by law. Electronically signed by: Regino Hayden M.D. 07/24/2022 3:59 PM
--- NOTE | 2022-07-24 17:46 | Hospitalist Progress Note ---
Date of Service July 24, 2022 Assessment & Plan (1) Low back pain: Plan: She c/o lumbar back pain with radiation of that pain into the buttocks/upper posterior thighs at time of admission. She presented with weakness of both hips. She had also had diffuse myalgias/arthralgias - these are improved since being on decadron x-rays both hips with mild-mod OA but this would not explain her weakness. MRI lumbar spine with and w/o contrast with DJD but this did not explain her symptoms. CPK mildly elevated - could be an explanation for some of her prox muscle weakness. If she has a myopathy there should be a response to IV steroids and there has been Palliative care had started the steroids - they will begin weaning them. Thoracic spine MRI negative APpreciate Neuro input consider paraneoplastic panel but very expensive and might not be helpful Most likely side effect of chemotherapy consider outpt Rheum consult CRP is 0. Sed rate noted. Replace low-normal B12. Cont PT/OT. continue decadron (2) Weakness: Plan: see #1 above (3) Dysphagia: Plan: appreciate speech therapy consultation. video swallow results noted. ?recurrent laryngeal nerve impairment as cause of dysphagia? perhaps during intubation from recent mastectomy? had PEG tube placed 01/2022 for FTT prior to starting chemo but never before had dysphagia until recently speech recs appreciated (thin liquids only, meds via PEG, etc). GI says nothing for them to do -consult ENT inpatient but may be better served with ENT outpt consult (4) Pancytopenia: Plan: etiology could be B12 deficiency. WBC count actually normal present since her cancer dx earlier in 2021, and last chemo was April -- thus would be unusual to be chemo-induced TSH wnl B12 low - supplementing B12 to be complete anaplasmosis smear negative peripheral smear -- no suspicious features of bone marrow problem s/p 1 unit of PRBCs over the weekend with stable H/H since fecal occult blood is negative follow CBC (5) Malignant neoplasm of central portion of left breast in female, estrogen receptor negative: Plan: PET-CT in May without distant mets if weakness continues and work-up is negative consider repeat CT chest /abd/pelvis (6) Former smoker: Plan: noted (7) PEG (percutaneous endoscopic gastrostomy) status: Plan: cont night-time tube feedings per home regimen nutrition consult appreciated see "dysphagia" above (8) Chronic obstructive pulmonary disease: Plan: no flare at this time lungs clear (9) Elevated AST (SGOT): Plan: chronic due to elevated CPK? (10) Severe protein-calorie malnutrition: Plan: 2nd to breast ca cont PEG feedings at HS supplement liquid PO feedings during the day (11) Hypertension: Plan: BPs controlled at this time without meds (12) Hyponatremia: Plan: Na 135 today and stable (13) Constipation: Plan: improved s/p enema with good results cont bowel regimen Plan DVT proph - high risk of DVT due to h/o cancer, poor mobility -- heparin 5000 BID PT, OT evals appreciated -may need SNF daughter updated on phone care d/w neurology Admission and Anticipated Discharge Date Admission Date: July 23, 2022 Subjective Pt feelin gbetter as far as pain control but still very weak. Did stand up with PT today. Very concerned about her iniability to safely swallow since her mastectomy. Requesting ENT consult Review of Systems Review of Systems: All systems reviewed & are unremarkable except as noted in HPI & below Physical Exam Constitutional: WD/WN, vitals as above Eyes: PERRL, conjunctivae normal, anicteric sclerae ENMT: external ear and nose normal, oropharynx normal Neck: trachea midline, no thyromegaly Respiratory: normal respiratory effort, lungs clear to auscultation Cardiovascular: RRR, no murmur, no edema Chest (Breasts): Chest: normal inspection of chest Gastrointestinal (Abdomen): normal bowel sounds, soft, nontender, no hepatosplenomegaly Inspection/Auscultation: + abdomen abnormal to inspection (PEG tube in place) Musculoskeletal: Extremities: extremities normal to inspection; no cyanosis and no clubbing Skin: no rashes, warm and dry Neurologic: moves all extremities and awake; no focal motor deficits Psychiatric: A+Ox3, euthymic affect Lymphatic: no lymphedema Results & Data Results & Data ([facility]) Vital Signs (Past 12 Hours) Vital Signs Temp Pulse Resp BP Pulse Ox O2 Del Method 07/24/22 14:33 36.3 C L 72 16 161/70 H 98 Room Air 07/24/22 07:17 36.6 C 74 16 125/59 L 96 Room Air Laboratory Results 07/24/22 07/22/22 Range/Units 10:51 09:32 Tiss Transglutamin IgA Pending Crossmatch See Detail PG Care Time/CCT Total # of Minutes Spent Total Time Spent with Patient: Total time spent is greater than 50% in coordination of care (as documented) at patient's floor/unit and/or counseling patient: Coding Level of Care Code 85045 Subseq Hosp Care Lvl 2 Diagnoses Low back pain M54.50 Weakness R53.1 Dysphagia R13.10 Pancytopenia D61.818 Malignant neoplasm of central portion of left breast in female, estrogen receptor negative C50.112; Z17.1 Former smoker Z87.891 PEG (percutaneous endoscopic gastrostomy) status Z93.1 Chronic obstructive pulmonary disease J44.9 Elevated AST (SGOT) R74.01 Severe protein-calorie malnutrition E43 Hypertension I10 Hypertension type: primary hypertension Hyponatremia E87.1 Constipation K59.00 (1) Hypertension Hypertension type: primary hypertension Qualified Code(s): I10 - Essential (primary) hypertension
[2022-07-24] MEDS: PEPTAMEN 1.5 CAL 1,000 ML BAG GT SCH (21:08)
[2022-07-24] MEDS: LORazepam 0.5 MG TAB PO PRN (21:14)
[2022-07-24] MEDS: dexAMETHasone 4 MG in SYRINGE 0 ML IV SCH (21:19)
[2022-07-25] MEDS: HEPARIN 100 UNIT/ML 5ML FLUSH FLUSH PRN ×2 (09:14→13:03)
[2022-07-25] MEDS: dexAMETHasone 6 MG in SYRINGE 0 ML IV SCH (09:14)
[2022-07-25] MEDS: LIDOCAINE 5% 1 PATCH TD SCH (09:15)
[2022-07-25] MEDS: HYDROCORTISONE HC 2.5% CRM 30GM TUBE EXT SCH ×3 (09:15→20:13)
[2022-07-25] MEDS: HEPARIN SOD 5,000 UNIT/0.5 ML VIAL SQ SCH ×2 (09:16→20:08)
[2022-07-25] MEDS: POLYETHYLENE (MIRALAX) 17 GM PACK PO SCH (09:26)
[2022-07-25] MEDS: CYANOCOBALAMIN (B-12) 500 MCG TABLET PEG SCH (09:34)
[2022-07-25] MEDS: LANSOPRAZOLE 30 MG SOLTAB PEG SCH (09:34)
--- NOTE | 2022-07-25 12:14 | Neurology Progress Note ---
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 She does have some proximal weakness with testing of the upper extremities and does have a mild elevation in CK's. She may have a myositis or myopathy. A paraneoplastic neuromuscular condition may not be completely excluded. I had considered ordering a comprehensive paraneoplastic panel although we were contacted by the pathology department regarding the high cost of this particular testing with potential high cost liability for the patient. Therefore, given that these test results would not likely impact her management, I elected to hold off on pursuing this particular testing, at least at this time. She continues to have dysphagia potentially related to vagal nerve injury. Has been evaluated by GI. Plan for outpatient ENT assessment as well. Patient interested in starting Cymbalta to address her chronic pain, I will ord er 20 mg/day. Plan to uptitrate depending on response and tolerability. Would recommend outpatient 4 limb EMG with repetitive stimulation to further assess for suspected peripheral neuropathy, possible myopathy, and exclude neuromuscular junction abnormality. Hold off on comprehensive paraneoplastic panel at this time. I will order acetylcholine receptor antibodies as well as a Lambert-Eaton m yasthenic antibody test. I will also order a repeat CK and aldolase as well as anti-Daniela 1 antibody, Sjogren's antibodies, SUE screen Admission and Anticipated Discharge Date Admission Date: July 23, 2022 Subjective Follow-up for pain and weakness The patient continues to report generalized weakness, would like to be able to get up out of the bed or chair independently if possible. Complains of pain in the hips, thighs, and general musculature with physical activity. Continues to complain of numbness affecting the toes and feet. Denies significant thoracic spinal pain. Complains of ongoing difficulty with swallowing. Recently completed thoracic spine MRI reviewed. No evidence of metastatic disease. No spinal myelopathy. Review of Systems Constitutional: + fatigue; no fever Musculoskeletal: as per Subjective / HPI, + myalgia and + body aches Neurologic: as per Subjective / HPI Results & Data ([facility]) Vital Signs (Past 12 Hours) Vital Signs Temp Pulse Resp BP Pulse Ox O2 Del Method 07/25/22 08:10 36.6 C 78 14 145/75 H 96 Room Air Laboratory Results WBC 7.26, hemoglobin 8.2, hematocrit 24.6, platelet count 111, sodium 135, potassium 3.7, BUN 57, creatinine 0.82, calcium 8.0, total CK2 36 on July 23, was to 90 on July 22. B12 277 in July 18. TSH 1.976 in June 2019. Exam (Neuro) Neurologic: Oriented to:: Person, Place and Time Memory: Short Term Intact and Remote Intact Attention: Span Intact and Concentration Intact Speech Fluency: negative Dysarthria or Dysfluency Fund of Knowledge: Vocabulary Cranial Nerves: Normal II, III, IV, and VII Motor Strength: Normal Lower Extremities (Mild diffuse lower extremity weakness noted); negative Normal Upper Extremities (Mild to moderate proximal upper extremity weakness noted) Sensation: negative Vibration Intact Coding Level of Care Code 91458 Subseq Hosp Care Lvl 2 Diagnoses Peripheral neuropathy G62.9 Weakness R53.1
[2022-07-25] MEDS: TUBE FEEDING WATER FLUSH GT SCH ×3 (13:18→20:09)
[2022-07-25] MEDS: CYANOCOBALAMIN 1000 MCG/ML VIAL IM SCH (13:26)
[2022-07-25] MEDS: DULoxetine HCL 20 MG CAP PO SCH ×2 (14:38→14:42)
--- NOTE | 2022-07-25 15:39 | Hospitalist Progress Note ---
Date of Service July 25, 2022 Assessment & Plan (1) Low back pain: Plan: She c/o lumbar back pain with radiation of that pain into the buttocks/upper posterior thighs at time of admission. She presented with weakness of both hips. She had also had diffuse myalgias/arthralgias - these are improved since being on decadron x-rays both hips with mild-mod OA but this would not explain her weakness. MRI lumbar spine with and w/o contrast with DJD but this did not explain her symptoms. CPK mildly elevated - could be an explanation for some of her prox muscle weakn ess. If she has a myopathy there should be a response to IV steroids and there has been . Thoracic spine MRI negative Appreciate Neuro input consider paraneoplastic panel but very expensive and might not be helpful Most likely side effect of chemotherapy drugs consider outpt Rheum consult CRP is 0. Sed rate noted. Replace low-normal B12. Cont PT/OT. continue decadron but change to po and wean to 4mg po bid -Neuro ordered Cymbalta 20mg daily for neuropathic pain -Neuro also ordered MG labs, aldolase, anti-Daniela, Sjogren's, Lambert-Eaton, and SUE labs -f/u Neuro as outpt (2) Weakness: Plan: see #1 above (3) Dysphagia: Plan: appreciate speech therapy consultation. video swallow results noted. ?recurrent laryngeal nerve impairment as cause of dysphagia? perhaps during intubation from recent mastectomy? had PEG tube placed 01/2022 for FTT prior to starting chemo but never before had dysphagia until recently speech recs appreciated (thin liquids only, meds via PEG, etc). GI says nothing for them to do -consult ENT inpatient but may be better served with ENT outpt consult-awaiting consult -needs speech therapy at rehab (4) Pancytopenia: Plan: etiology could be B12 deficiency. WBC count actually normal present since her cancer dx earlier in 2021, and last chemo was April -- thus would be unusual to be chemo-induced TSH wnl B12 low - supplementing B12 to be complete and added IM B12 x 3 days anaplasmosis smear negative peripheral smear -- no suspicious features of bone marrow problem s/p 1 unit of PRBCs over the weekend with stable H/H since fecal occult blood is negative follow CBC (5) Malignant neoplasm of central portion of left breast in female, estrogen receptor negative: Plan: PET-CT in May without distant mets if weakness continues and work-up is negative consider repeat CT chest/abd/pelvis (6) Former smoker: Plan: noted (7) PEG (percutaneous endoscopic gastrostomy) status: Plan: cont night-time tube feedings per home regimen nutrition consult appreciated see "dysphagia" above (8) Chronic obstructive pulmonary disease: Plan: no flare at this time lungs clear (9) Elevated AST (SGOT): Plan: chronic due to elevated CPK? (10) Severe protein-calorie malnutrition: Plan: 2nd to breast ca cont PEG feedings at HS supplement liquid PO feedings during the day (11) Hypertension: Plan: BPs controlled at this time without meds (12) Hyponatremia: Plan: Na 135 and stable (13) Constipation: Plan: improved, last BM 07/23 s/p enema with good results cont bowel regimen Plan DVT proph - high risk of DVT due to h/o cancer, poor mobility -- heparin 5000 BID PT, OT evals appreciated -needs rehab to include PT/OT/Speech therpay, is medically complex and has significant weakness daughter updated at bedside Admission and Anticipated Discharge Date Admission Date: July 23, 2022 Subjective Pt still feels weak but reports she is happy with herself for standing a little longer today and did some side steps. Doing some exercises in bed. Last BM 2 days ago. Review of Systems Review of Systems: All systems reviewed & are unremarkable except as noted in HPI & below Physical Exam Constitutional: WD/WN, vitals as above Eyes: + anicteric sclerae Neck: trachea midline, no thyromegaly Respiratory: normal respiratory effort, lungs clear to auscultation Cardiovascular: RRR, no murmur, no edema Chest (Breasts): Chest: normal inspection of chest Gastrointestinal (Abdomen): normal bowel sounds, soft, nontender, no hepatosplenomegaly Inspection/Auscultation: + abdomen abnormal to inspection (PEG tube in place) Musculoskeletal: Extremities: extremities normal to inspection; no cyanosis and no clubbing Skin: no rashes, warm and dry Neurologic: moves all extremities, + focal motor deficit (4/5 strngth prox muscles LEs bilat) and awake Psychiatric: A+Ox3, euthymic affect Lymphatic: no lymphedema Results & Data Results & Data ([facility]) Vital Signs (Past 12 Hours) Vital Signs Temp Pulse Resp BP Pulse Ox O2 Del Method 07/25/22 15:02 36.9 C 72 16 136/74 96 Room Air 07/25/22 08:10 36.6 C 78 14 145/75 H 96 Room Air Laboratory Results 07/24/22 08:27 07/24/22 08:27 PG Care Time/CCT Total # of Minutes Spent Total Time Spent with Patient: Total time spent is greater than 50% in coordination of care (as documented) at patient's floor/unit and/or counseling patient: Coding Level of Care Code 92854 Subseq Hosp Care Lvl 2 Diagnoses Low back pain M54.50 Weakness R53.1 Dysphagia R13.10 Pancytopenia D61.818 Malignant neoplasm of central portion of left breast in female, estrogen receptor negative C50.112; Z17.1 Former smoker Z87.891 PEG (percutaneous endoscopic gastrostomy) status Z93.1 Chronic obstructive pulmonary disease J44.9 Elevated AST (SGOT) R74.01 Severe protein-calorie malnutrition E43 Hypertension I10 Hypertension type: primary hypertension Hyponatremia E87.1 Constipation K59.00 (1) Hypertension Hypertension type: primary hypertension Qualified Code(s): I10 - Essential (primary) hypertension
[2022-07-25] MEDS: HYDROCODONE/ACETAMOPHEN 5/325MG TAB PO PRN (20:07)
[2022-07-25] MEDS: PEPTAMEN 1.5 CAL 1,000 ML BAG GT SCH (20:08)
[2022-07-25] MEDS: dexAMETHasone 4 MG TAB PO SCH (20:11)
[2022-07-25] MEDS: LORazepam 0.5 MG TAB PO PRN (22:40)
[2022-07-26] MEDS: HYDROCODONE/ACETAMOPHEN 5/325MG TAB PO PRN (01:21)
[2022-07-26] MEDS: DULoxetine HCL 20 MG CAP PO SCH (08:49)
[2022-07-26] MEDS: dexAMETHasone 4 MG TAB PO SCH ×2 (08:49→21:28)
[2022-07-26] MEDS: CYANOCOBALAMIN (B-12) 500 MCG TABLET PEG SCH (08:49)
[2022-07-26] MEDS: HYDROCORTISONE HC 2.5% CRM 30GM TUBE EXT SCH ×3 (08:50→21:28)
[2022-07-26] MEDS: LANSOPRAZOLE 30 MG SOLTAB PEG SCH (08:50)
[2022-07-26] MEDS: POLYETHYLENE (MIRALAX) 17 GM PACK PO SCH (08:51)
[2022-07-26] MEDS: TUBE FEEDING WATER FLUSH GT SCH ×3 (08:51→21:29)
[2022-07-26] MEDS: LIDOCAINE 5% 1 PATCH TD SCH (08:51)
[2022-07-26] MEDS: CYANOCOBALAMIN 1000 MCG/ML VIAL IM SCH ×2 (08:52→10:02)
[2022-07-26] MEDS: HEPARIN SOD 5,000 UNIT/0.5 ML VIAL SQ SCH ×2 (08:53→21:27)
--- NOTE | 2022-07-26 10:53 | ENT Consultation ---
Date of Consultation July 26, 2022 Assessment & Plan (1) Dysphagia: Differential includes achalasia and cricopharyngeal spasm. Esophageal dysmotility very likely in view of evidence of aspiration. I instructed her to see me in my office for fiberoptic laryngoscopy. 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 Doubt recurrent laryngeal nerve injury. Supervising Physician Co-Signing Physician Notes I personally evaluated the patient and agree with the findings as documented by Marlon Starr PAC Exam: Constitutional: WD/WN, vitals as above General: EOM intact bilaterally Neck: normal visual inspection Respiratory: normal respiratory effort, lungs clear to auscultation Cardiovascular: RRR, no murmur, no edema Gastrointestinal: abdomennormal to inspection, nondistended, soft, nontender, no hepatosplenomegaly Musculoskeletal: no cyanosis, head normal to inspection Skin: no rashes, warm and dry Neurologic: moves all extremities Psychiatric: A and O x3, euthymic affect History of Present Illness Reason for Consultation: Dysphagia Attending Physician: Mackenzie Calhoun MD History of Present Illness 71-year-old lady with difficulty swallowing since intubation for breast surgery last month. Had upper GI endoscopy and PEG tube the summer for failure to thrive. She states that her voice has always been deep. History of smoking. No recent change in voice. Allergies Allergy/AdvReac Type Severity Reaction Status Date / Time pistachio nut AdvReac Severe Red face Verified 07/18/22 18:42 and hands ~ Throwing up Home Medications Medication Instructions Recorded Confirmed Type ondansetron HCl 8 mg tablet 8 mg PO Q8H PRN Nausea 01/31/22 07/18/22 History prochlorperazine maleate 10 mg 10 mg PO Q6H PRN Nausea 01/31/22 07/18/22 History tablet (Compazine) tramadol 50 mg tablet 50 mg PO Q6H PRN Pain 01/31/22 07/18/22 History Tube Feeding Water Flush 250 ml G-tube UD #1 amp 02/08/22 07/18/22 Rx lorazepam 0.5 mg tablet (Ativan) 0.5 mg PO HS PRN sleep #5 tabs 02/08/22 07/18/22 Rx loratadine 5 mg-pseudoephedrine ER 1 tab PO BID PRN Congestion 02/23/22 07/18/22 History 120 mg tablet,extended release,12hr (Claritin-D 12 Hour) albuterol sulfate 90 mcg/actuation 1 inh inhalation QID PRN shortness 06/15/22 07/18/22 Rx aerosol inhaler of breath or wheezing or cough #8.5 grams nystatin 100,000 unit/mL oral 4 ml PO DAILY #250 mL 07/04/22 07/18/22 Rx suspension budesonide-formoterol HFA 160 2 puff inhalation BID #10.2 grams 07/06/22 Rx mcg-4.5 mcg/actuation aerosol inhaler (Symbicort) furosemide 20 mg tablet (Lasix) 20 mg PO DAILY PRN Fluid Retention 07/18/22 07/18/22 History loratadine 10 mg tablet (Claritin) 10 mg PO DAILY PRN Congestion 07/18/22 07/18/22 History ondansetron 4 mg disintegrating 4 mg PO Q8H PRN nausea and 07/18/22 Rx tablet vomiting 5 days #15 tabs Patient History Medical History Breast cancer Former smoker Hypertension Port-A-Cath in place Surgical History History of left mastectomy Hx of tonsillectomy PEG (percutaneous endoscopic gastrostomy) status Family History Mother Hypertension Sister Hypertension Brother Hypertension Father Lung cancer Social History Smoking Status: Current some day smoker Tobacco Type: Cigarettes Years Smoked: 40; Cigarettes Per Day: 3; Second Hand Exposure: No; Hx Alcohol Use: No Hx Substance Use: No Preferred Language: Angolan Communication Ability: Effective Hearing Ability: Normal 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 Beliefs That Will Affect Care: Worship marital status: / Current Living Situation: Family current occupational status: retired How many Children do You have: 1 Feels Safe at Home: Yes Diet Comment: Peg tube feeds, Boost daily; small amounts orally during the past year weight has: decreased > 10 lbs Dental Care, Regularly: Yes Physical Activity Frequency: Does not Exercise Seatbelt Use: always Do you think of yourself as: straight/heterosexual Gender Identity: Female Assistive Devices: Bedside Commode, Glasses and Walker Physical Exam Constitutional: + ill appearing and + thin Eyes: PERRL, conjunctivae normal, anicteric sclerae ENMT: external ear and nose normal, oropharynx normal Neck: trachea midline, no thyromegaly Results & Data ([facility]) Vital Signs (Past 12 Hours) Vital Signs Temp Pulse Resp BP Pulse Ox O2 Del Method 07/26/22 08:02 36.7 C 79 20 158/71 H 95 Room Air
--- NOTE | 2022-07-26 13:09 | Palliative Care Progress Note ---
Date of Service July 26, 2022 Assessment & Plan (1) Low back pain: Plan: Improved with steroids. Tapering off slowly. (2) Leg weakness, bilateral: Plan: She tells me that she has decided that she wants to go for rehab, hopefully to [facility], or [facility]. (3) Dysphagia: Plan: Not being able to eat is a quality of life issue for her. She understands the risks of aspiration. She is looking forward to having speech therapy at rehab to work on improving her swallowing function. She does have PEG tube for nutrition. She is tolerating sips of liquids. (4) Palliative care encounter: Plan: Hayley's goal remains to be trying to improve her functional status, complete radiation therapy and have more time. She talks extensively about books that she likes to read and things that she would like to do when she is feeling better. We talked about remaining hopeful and continuing to reassess as she moves forward. We talked about possible followup with palliative care as an outpatient. She or Gilda will reach out to Dr. Morgan or Dr. Kc for referral if they feel that is helpful as an outpatient. Admission and Anticipated Discharge Date Admission Date: July 23, 2022 Subjective Denies pain. Has had hydrocodone/APAP x 2 last night. She is able to transfer to chair with assistance and no pain. Review of Systems Review of Systems: ESAS Pain 0/3 Dyspnea 0/3 Nausea 0/3 Drowsiness 0/3 PPS 40% Gastrointestinal: no abdominal pain, no bloating and no constipation LBM 10/31 which is normal for her Physical Exam Constitutional: + frail appearing; no acute distress ENMT: Mouth: oral mucous membranes not dry Respiratory: normal respiratory effort; no labored breathing Musculoskeletal: Extremities: + muscle atrophy Skin: warm and dry Neurologic: Speech / Cognition: normal cognition Psychiatric: A+Ox3, euthymic affect Results & Data ([facility]) Vital Signs (Past 12 Hours) Vital Signs Temp Pulse Resp BP Pulse Ox O2 Del Method 07/26/22 08:02 98.1 F 79 20 158/71 H 95 Room Air PG Care Time/CCT Total # of Minutes Spent Total Time Spent: 40 Total Time Spent with Patient: Total time spent is greater than 50% in coordination of care (as documented) at patient's floor/unit and/or counseling patient:Symptom management, patient education and support Coding Level of Care Code 09769 Subseq Hosp Care Lvl 3 Diagnoses Low back pain M54.50 Leg weakness, bilateral R29.898 Dysphagia R13.10 Palliative care encounter Z51.5
--- NOTE | 2022-07-26 20:01 | Hospitalist Progress Note ---
Date of Service July 26, 2022 Assessment & Plan (1) Low back pain: Plan: She c/o lumbar back pain with radiation of that pain into the buttocks/upper posterior thighs at time of admission. She presented with weakness of both hips. She had also had diffuse myalgias/arthralgias - these are improved since being on decadron x-rays both hips with mild-mod OA but this would not explain her weakness. MRI lumbar spine with and w/o contrast with DJD but this did not explain her symptoms. CPK mildly elevated - could be an explanation for some of her prox muscle weakness. If she has a myopathy there should be a response to IV steroids and there has been . Thoracic spine MRI negative Appreciate Neuro input consider paraneoplastic panel but very expensive and might not be helpful Most likely side effect of chemotherapy drugs consider outpt Rheum consult CRP is 0. Sed rate noted. Replace low-normal B12. Cont PT/OT. continue decadron 4mg po bid and wean down as able to -Neuro ordered Cymbalta 20mg daily for neuropathic pain -Neuro also ordered MG labs, aldolase, anti-Daniela, Sjogren's, Lambert-Eaton, and SUE labs-all pending -f/u Neuro as outpt (2) Weakness: Plan: see #1 above (3) Dysphagia: Plan: appreciate speech therapy consultation. video swallow results noted. ?recurrent laryngeal nerve impairment as cause of dysphagia Suggested by speech therapy ENT saw her and thinks this could just be vocal cord polyps and esophageal dysmotility Perhaps during intubation from recent mastectomy and some sort of damage to the vocal cords had PEG tube placed 01/2022 for FTT prior to starting chemo but never before had dysphagia until recently -speech recs appreciated (thin liquids only, meds via PEG, etc). 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 WBC count actually normal present since her cancer dx earlier in 2021, and last chemo was April -- thus would be unusual to be chemo-induced TSH wnl B12 low - supplementing B12 to be complete and added IM B12 x 3 days anaplasmosis smear negative peripheral smear -- no suspicious features of bone marrow problem s/p 1 unit of PRBCs over the weekend with stable H/H since fecal occult blood is negative follow CBC (5) Malignant neoplasm of central portion of left breast in female, estrogen receptor negative: Plan: PET-CT in May without distant mets if weakness continues and work-up is negative consider repeat CT chest/abd /pelvis (6) Former smoker: Plan: noted (7) PEG (percutaneous endoscopic gastrostomy) status: Plan: cont night-time tube feedings per home regimen nutrition consult appreciated see "dysphagia" above (8) Chronic obstructive pulmonary disease: Plan: no flare at this time lungs clear (9) Elevated AST (SGOT): Plan: chronic due to elevated CPK? (10) Severe protein-calorie malnutrition: Plan: 2nd to breast ca cont PEG feedings at HS supplement liquid PO feedings during the day (11) Hypertension: Plan: BPs controlled at this time without meds (12) Hyponatremia: Plan: Na 135 and stable (13) Constipation: Plan: improved, last BM 07/23 s/p enema with good results cont bowel regimen Plan DVT proph - high risk of DVT due to h/o cancer, poor mobility -- heparin 5000 BID PT, OT evals appreciated -needs rehab to include PT/OT/Speech therpay, is medically complex and has significant weakness daughter updated at bedside Admission and Anticipated Discharge Date Admission Date: July 23, 2022 Subjective Patient feeling stronger today and was able to walk to the doorway and back but did have a lot of pain in the thighs with that and they were burning. She is pleased with this. Still no bowel movement in 3 days. Review of Systems Review of Systems: All systems reviewed & are unremarkable except as noted in HPI & below Physical Exam Constitutional: WD/WN, vitals as above Eyes: + anicteric sclerae Neck: trachea midline, no thyromegaly Respiratory: normal respiratory effort, lungs clear to auscultation Cardiovascular: RRR, no murmur, no edema Chest (Breasts): Chest: normal inspection of chest Gastrointestinal (Abdomen): normal bowel sounds, soft, nontender, no hepatosplenomegaly Inspection/Auscultation: + abdomen abnormal to inspection (PEG tube in place) Musculoskeletal: Extremities: extremities normal to inspection; no cyanosis and no clubbing Skin: no rashes, warm and dry Neurologic: moves all extremities, + focal motor deficit (4/5 strngth prox muscles LEs bilat) and awake Psychiatric: A+Ox3, euthymic affect Lymphatic: no lymphedema Results & Data Results & Data ([facility]) Vital Signs (Past 12 Hours) Vital Signs Temp Pulse Resp BP Pulse Ox O2 Del Method 07/26/22 08:02 36.7 C 79 20 158/71 H 95 Room Air PG Care Time/CCT Total # of Minutes Spent Total Time Spent with Patient: Total time spent is greater than 50% in coordination of care (as documented) at patient's floor/unit and/or counseling patient: Coding Level of Care Code 19260 Subseq Hosp Care Lvl 2 Diagnoses Low back pain M54.50 Weakness R53.1 Dysphagia R13.10 Pancytopenia D61.818 Malignant neoplasm of central portion of left breast in female, estrogen receptor negative C50.112; Z17.1 Former smoker Z87.891 PEG (percutaneous endoscopic gastrostomy) status Z93.1 Chronic obstructive pulmonary disease J44.9 Elevated AST (SGOT) R74.01 Severe protein-calorie malnutrition E43 Hypertension I10 Hypertension type: primary hypertension Hyponatremia E87.1 Constipation K59.00 (1) Hypertension Hypertension type: primary hypertension Qualified Code(s): I10 - Essential (primary) hypertension
[2022-07-26] MEDS: PEPTAMEN 1.5 CAL 1,000 ML BAG GT SCH (21:28)
[2022-07-26] MEDS: LORazepam 0.5 MG TAB PO PRN (21:49)
[2022-07-27] MEDS: dexAMETHasone 4 MG TAB PO SCH ×2 (09:05→20:10)
[2022-07-27] MEDS: LANSOPRAZOLE 30 MG SOLTAB PEG SCH (09:05)
[2022-07-27] MEDS: LIDOCAINE 5% 1 PATCH TD SCH (09:05)
[2022-07-27] MEDS: CYANOCOBALAMIN (B-12) 500 MCG TABLET PEG SCH (09:06)
[2022-07-27] MEDS: HYDROCORTISONE HC 2.5% CRM 30GM TUBE EXT SCH ×3 (09:06→20:11)
[2022-07-27] MEDS: POLYETHYLENE (MIRALAX) 17 GM PACK PO SCH (09:06)
[2022-07-27] MEDS: TUBE FEEDING WATER FLUSH GT SCH ×3 (09:06→20:10)
[2022-07-27] MEDS: CYANOCOBALAMIN 1000 MCG/ML VIAL IM SCH (09:07)
[2022-07-27] MEDS: DULoxetine HCL 20 MG CAP PO SCH (09:07)
[2022-07-27] MEDS: HEPARIN SOD 5,000 UNIT/0.5 ML VIAL SQ SCH ×2 (09:08→20:10)
[2022-07-27] MEDS: HEPARIN 100 UNIT/ML 5ML FLUSH FLUSH PRN ×2 (09:45→18:12)
[2022-07-27 10:09] LABS: Basophils # (auto) 0.01 K/uL (0-0.2); Basophils % (auto) 0.1 %; Eosinophils # (auto) 0.01 K/uL (0-0.50); Eosinophils % (auto) 0.1 %; Hemoglobin 8.2 g/dl (12.0-16.0); Immature Granulocytes # (auto) 0.27 K/uL (0.00-0.02); Immature Granulocytes % (auto) 3.7 %; Lymphocytes # (auto) 1.38 K/uL (1.2-3.4); Lymphocytes % (auto) 19.1 %; Mean Corpuscular Hemoglobin 32.3 pg (25.0-34.0); Mean Corpuscular Hgb Conc 32.8 g/dL (32.0-36.0); Mean Corpuscular Volume 98.4 fL (80.0-100.0); Mean Platelet Volume 11.2 fL (9.4-12.3); Monocytes # (auto) 1.23 K/uL (0.24-0.82); Neutrophils # (auto) 4.33 K/uL (1.4-6.5); Platelet Count 122 K/uL (130-400); RDW Coefficient of Variation 15.1 % (11.5-14.5); RDW Standard Deviation 53.9 fL (36.4-46.3); Red Blood Count 2.54 M/uL (3.93-5.22); White Blood Count 7.23 K/ul (4.8-10.8)
[2022-07-27 10:36] LABS: Albumin Globulin Ratio 0.9 (0.9-2); Albumin Level 2.6 gm/dl (3.4-5.0); BUN Creatinine Ratio 66.7 (10-20); Bilirubin,Total 0.3 mg/dl (0.2-1.0); Calcium 8.4 mg/dl (8.5-10.1); Creatinine Clr Calc Pharmacy 43.6 ml/min; Est GFR (African American) 91.7 ml/min; Est GFR (Non-African American) 79.1 ml/min; Magnesium 1.4 mg/dl (1.7-2.4); Phosphorus 2.2 mg/dl (2.5-4.9); Potassium 4.4 mmol/L (3.5-5.1); Total Protein 5.6 gm/dl (6.0-8.3)
[2022-07-27] MEDS ORDERED: SODIUM PHOSPHATE 3 MMOL/1 ML INFUSION IV STA (11:19)
[2022-07-27] MEDS ORDERED: SODIUM PHOSPHATE 15 MMOL in SODIUM CHLORIDE 0.9% 250 ML IV ONE (11:30)
[2022-07-27] MEDS: MAGNESIUM SULFATE / D5W 1 GM/100 ML BAG IV SCH ×3 (11:54→16:03)
--- NOTE | 2022-07-27 12:36 | Palliative Care Progress Note ---
Date of Service July 27, 2022 Assessment & Plan (1) Generalized weakness: Plan: She has told her that she doesn't think that she is going to get better. He is tearful when talking about this. They are all in agreement that they do want to proceed with rehab. (2) Palliative care encounter: Plan: Mr. Leach showed me that advance directive that Hayley's mother had. She indicated that she would not want any life prolonging measures if she were not likely to get better. He tells me that Hayley has said before that is how she feels also. We reviewed conversation from yesterday and completed POLST. She is DNR/DNI. She would want treatment for treatable illness and is agreeable to hospitalization if needed. 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 She would want antibiotics but would determine that depending on the situation. POLST form completed to reflect this. Admission and Anticipated Discharge Date Admission Date: July 23, 2022 Subjective Complains of feeling tired. Hemoglobin has been stable since transfusion. Review of Systems Review of Systems: ESAS Pain 1/3 Dyspnea 0/3 Nausea 0/3 Fatigue 2/3 Drowsiness 1/3 PPS 40% Physical Exam Constitutional: + frail appearing Respiratory: normal respiratory effort; no labored breathing Cardiovascular: Rate/Rhythm: regular rate and regular rhythm Neurologic: awake; not confused Results & Data ([facility]) Vital Signs (Past 12 Hours) Vital Signs Temp Pulse Resp BP Pulse Ox O2 Del Method 07/27/22 07:49 97.9 F 75 16 142/76 H 97 Room Air PG Care Time/CCT Total # of Minutes Spent Total Time Spent: 23 Total Time Spent with Patient: Total time spent is greater than 50% in coordination of care (as documented) at patient's floor/unit and/or counseling patient:goals of care, code status, POLST Coding Level of Care Code 65044 Subseq Hosp Care Lvl 2 Diagnoses Generalized weakness R53.1 Palliative care encounter Z51.5
--- NOTE | 2022-07-27 19:09 | Hospitalist Progress Note ---
Date of Service July 27, 2022 Assessment & Plan (1) Low back pain: Plan: She c/o lumbar back pain with radiation of that pain into the buttocks/upper posterior thighs at time of admission. She presented with weakness of both hips. She had also had diffuse myalgias/arthralgias - these are improved since being on decadron x-rays both hips with mild-mod OA but this would not explain her weakness. MRI lumbar spine with and w/o contrast with DJD but this did not explain her symptoms. CPK mildly elevated - could be an explanation for some of her prox muscle weakness. If she has a myopathy there should be a response to IV steroids and there has been . Thoracic spine MRI negative Appreciate Neuro input consider paraneoplastic panel but very expensive and might not be helpful Most likely side effect of chemotherapy drugs consider outpt Rheum consult CRP is 0. Sed rate noted. Replace low-normal B12. Cont PT/OT. continue decadron 4mg po bid and wean down as able to -Neuro ordered Cymbalta 20mg daily for neuropathic pain and titrate up to 30mg in 1-2 weeks -Neuro also ordered MG labs, aldolase, anti-Daniela, Sjogren's, Lambert-Eaton, and SUE labs-all pending -f/u Neuro as outpt (2) Weakness: Plan: see above (3) Dysphagia: Plan: appreciate speech therapy consultation. video swallow results noted. ?recurrent laryngeal nerve impairment as cause of dysphagia Suggested by speech therapy ENT saw her and thinks this could just be vocal cord polyps and esophageal dysmotility Perhaps during intubation from recent mastectomy and some sort of damage to the vocal cords had PEG tube placed 01/2022 for FTT prior to starting chemo but never before had dysphagia until recently -speech recs appreciated (thin liquids only, meds via PEG, etc). 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 WBC count actually normal present since her cancer dx earlier in 2021, and last chemo was April -- thus would be unusual to be chemo-induced TSH wnl B12 low - supplementing B12 to be complete and added IM B12 x 3 days and then continue po B12 anaplasmosis smear negative peripheral smear -- no suspicious features of bone marrow problem No evidence of bleeding from anywhere, probably all nutritionally related s/p 1 unit of PRBCs over the weekend with stable H/H since at 8.2 fecal occult blood is negative follow CBC at rehab (5) Malignant neoplasm of central portion of left breast in female, estrogen receptor negative: Plan: PET-CT in May without distant mets if weakness continues and work-up is negative consider repeat CT chest/abd/pelvis f/u with Oncology after discharge and is planning for XRT (6) Former smoker: Plan: noted (7) PEG (percutaneous endoscopic gastrostomy) status: Plan: cont night-time tube feedings per home regimen nutrition consult appreciated see "dysphagia" above With Na+ 129 today, Mag 1.4, Phos low 2.2 -decrease free water flushes to 75mL tid due to hyponatremia replace low phos and mag today follow BMP, Phos, Mag in AM (8) Chronic obstructive pulmonary disease: Plan: no flare at this time lungs clear (9) Elevated AST (SGOT): Plan: chronic due to elevated CPK? refeeding? (10) Severe protein-calorie malnutrition: Plan: 2nd to breast ca cont PEG feedings at HS supplement liquid PO feedings during the day (11) Hypertension: Plan: BPs controlled at this time without meds (12) Hyponatremia: Plan: as above, low again decrease free water flushes (13) Constipation: Plan: improved, last BM 07/27, goes q3-4 days s/p enema with good results cont bowel regimen Plan DVT proph - high risk of DVT due to h/o cancer, poor mobility -- heparin 5000 BID PT, OT evals appreciated -needs rehab to include PT/OT/Speech therpay, is medically complex and has significant weakness Dispo-awaiting insurance auth for rehab Medically stable for discharge Admission and Anticipated Discharge Date Admission Date: July 23, 2022 Subjective Pt worked with PT today and again walked to the doorway and back which she is proud of, however her thighs again were "screaming" in a burning sensation. Took about 10 min of rest for that to go away. N omuscle cramps. No headaches, lightheadedness, SOB, CP, abd pain, nausea. She is moving her bowels today, making urine. Review of Systems Review of Systems: All systems reviewed & are unremarkable except as noted in HPI & below Physical Exam Constitutional: WD/WN, vitals as above Eyes: + anicteric sclerae ENMT: external ear and nose normal, oropharynx normal Neck: trachea midline, no thyromegaly Respiratory: normal respiratory effort, lungs clear to auscultation Cardiovascular: RRR, no murmur, no edema Chest (Breasts): Chest: normal inspection of chest Gastrointestinal (Abdomen): normal bowel sounds, soft, nontender, no hepatosplenomegaly Inspection/Auscultation: + abdomen abnormal to inspection (PEG tube in place) Musculoskeletal: Extremities: extremities normal to inspection; no cyanosis and no clubbing Skin: no rashes, warm and dry Neurologic: moves all extremities, + focal motor deficit (3/5 strength prox muscles LEs bilat) and awake Psychiatric: A+Ox3, euthymic affect Lymphatic: no lymphedema Results & Data Results & Data ([facility]) Vital Signs (Past 12 Hours) Vital Signs Temp Pulse Resp BP Pulse Ox O2 Del Method 07/27/22 15:11 36.6 C 72 16 165/75 H 97 Room Air 07/27/22 07:49 36.6 C 75 16 142/76 H 97 Room Air Laboratory Results 07/27/22 07/27/22 Range/Units 09:37 09:37 WBC 7.23 (4.8-10.8) K/ul RBC 2.54 L (3.93-5.22) M/uL Hgb 8.2 L (12.0-16.0) g/dl Hct 25.0 L (34.1-44.9) % MCV 98.4 (80.0-100.0) fL MCH 32.3 (25.0-34.0) pg MCHC 32.8 (32.0-36.0) g/dL RDW Std Deviation 53.9 H (36.4-46.3) fL RDW Coeff of Emil 15.1 H (11.5-14.5) % Plt Count 122 L (130-400) K/uL MPV 11.2 (9.4-12.3) fL Immature Gran % (Auto) 3.7 % Neut % (Auto) 60.0 % Lymph % (Auto) 19.1 % Dewey % (Auto) 17.0 % Eos % (Auto) 0.1 % Baso % (Auto) 0.1 % Neut # (Auto) 4.33 (1.4-6.5) K/uL Lymph # (Auto) 1.38 (1.2-3.4) K/uL Dewey # (Auto) 1.23 H (0.24-0.82) K/uL Eos # (Auto) 0.01 (0-0.50) K/uL Baso # (Auto) 0.01 (0-0.2) K/uL Immature Gran # (Auto) 0.27 H (0.00-0.02) K/uL Sodium 129 L (136-145) mmol/L Potassium 4.4 (3.5-5.1) mmol/L Chloride 99 (98-107) mmol/L Carbon Dioxide 25 (21-32) mmol/L Anion Gap 5 (3-11) BUN 50 H (6-23) mg/dl Creatinine 0.75 (0.6-1.2) mg/dl Est Cr Clr Drug Dosing 43.6 ml/min Est GFR ( Amer) 91.7 ml/min Est GFR (Non-Af Amer) 79.1 ml/min BUN/Creatinine Ratio 66.7 H (10-20) Glucose 105 H (70-99(Fasting)) mg/dl Calcium 8.4 L (8.5-10.1) mg/dl Phosphorus 2.2 L (2.5-4.9) mg/dl Magnesium 1.4 L (1.7-2.4) mg/dl Total Bilirubin 0.3 (0.2-1.0) mg/dl AST 42 H (13-39) U/L ALT 26 (7-52) U/L Alkaline Phosphatase 58 (34-104) U/L Total Protein 5.6 L (6.0-8.3) gm/dl Albumin 2.6 L (3.4-5.0) gm/dl Globulin 3.0 (2.5-4.0) gm/dl Albumin/Globulin Ratio 0.9 (0.9-2) PG Care Time/CCT Total # of Minutes Spent Total Time Spent with Patient: Total time spent is greater than 50% in coordination of care (as documented) at patient's floor/unit and/or counseling patient: Coding Level of Care Code 93334 Subseq Hosp Care Lvl 3 Diagnoses Low back pain M54.50 Weakness R53.1 Dysphagia R13.10 Pancytopenia D61.818 Malignant neoplasm of central portion of left breast in female, estrogen receptor negative C50.112; Z17.1 Former smoker Z87.891 PEG (percutaneous endoscopic gastrostomy) status Z93.1 Chronic obstructive pulmonary disease J44.9 Elevated AST (SGOT) R74.01 Severe protein-calorie malnutrition E43 Hypertension I10 Hypertension type: primary hypertension Hyponatremia E87.1 Constipation K59.00 (1) Hypertension Hypertension type: primary hypertension Qualified Code(s): I10 - Essential (primary) hypertension
[2022-07-27] MEDS: PEPTAMEN 1.5 CAL 1,000 ML BAG GT SCH (20:10)
[2022-07-28 09:33] LABS: Hematocrit (blood only) 24.2 % (34.1-44.9); Hemoglobin 7.9 g/dl (12.0-16.0); Mean Corpuscular Hemoglobin 32.2 pg (25.0-34.0); Mean Corpuscular Hgb Conc 32.6 g/dL (32.0-36.0); Mean Corpuscular Volume 98.8 fL (80.0-100.0); Mean Platelet Volume 11.8 fL (9.4-12.3); Platelet Count 120 K/uL (130-400); RDW Coefficient of Variation 15.2 % (11.5-14.5); RDW Standard Deviation 53.9 fL (36.4-46.3); Red Blood Count 2.45 M/uL (3.93-5.22); White Blood Count 10.29 K/ul (4.8-10.8)
[2022-07-28 09:34] LABS: Albumin Globulin Ratio 0.9 (0.9-2); Albumin Level 2.5 gm/dl (3.4-5.0); BUN Creatinine Ratio 69.6 (10-20); Bilirubin,Total 0.3 mg/dl (0.2-1.0); Calcium 7.9 mg/dl (8.5-10.1); Creatinine Clr Calc Pharmacy 47.3 ml/min; Est GFR (African American) 100.1 ml/min; Est GFR (Non-African American) 86.4 ml/min; Globulin 2.9 gm/dl (2.5-4.0); Potassium 4.2 mmol/L (3.5-5.1); Total Protein 5.4 gm/dl (6.0-8.3)
[2022-07-28 09:56] LABS: ALC (manual) 1.13 K/uL (1.2-3.4); ANC (manual) 8.54 K/uL (1.4-6.5); Lymphocytes # (manual) 1.13 K/uL (1.2-3.4); Lymphocytes % (manual) 11 %; Monocytes # (manual) 0.31 K/uL (0.24-0.82); Monocytes % (manual) 3 %; Myelocytes # (manual) 0.31 K/uL (0-0); Myelocytes % (manual) 3 %; Neutrophils # (manual) 8.54 K/uL (1.4-6.5); Neutrophils % (manual) 83 %
[2022-07-28] MEDS: LANSOPRAZOLE 30 MG SOLTAB PEG SCH (09:56)
[2022-07-28] MEDS: dexAMETHasone 4 MG TAB PO SCH ×2 (09:56→20:19)
[2022-07-28] MEDS: CYANOCOBALAMIN (B-12) 500 MCG TABLET PEG SCH (09:56)
[2022-07-28] MEDS: DULoxetine HCL 20 MG CAP PO SCH (09:56)
[2022-07-28] MEDS: HYDROCORTISONE HC 2.5% CRM 30GM TUBE EXT SCH ×3 (09:57→20:20)
[2022-07-28] MEDS: HEPARIN SOD 5,000 UNIT/0.5 ML VIAL SQ SCH ×2 (09:57→20:15)
[2022-07-28] MEDS: POLYETHYLENE (MIRALAX) 17 GM PACK PO SCH (09:58)
[2022-07-28] MEDS: LIDOCAINE 5% 1 PATCH TD SCH (09:58)
[2022-07-28] MEDS: TUBE FEEDING WATER FLUSH GT SCH ×3 (12:19→20:20)
[2022-07-28] MEDS: PEPTAMEN 1.5 CAL 1,000 ML BAG GT SCH (20:20)
--- NOTE | 2022-07-29 00:08 | Hospitalist Progress Note ---
Date of Service July 28, 2022 Assessment & Plan (1) Low back pain: Plan: She c/o lumbar back pain with radiation of that pain into the buttocks/upper posterior thighs at time of admission. She presented with weakness of both hips as well as both shoulders and proximal upper arms. She had also had diffuse myalgias/arthralgias - these are improved since being on decadron x-rays both hips with mild-mod OA but this would not explain her weakness. MRI lumbar spine with and w/o contrast with DJD but this did not explain her symptoms. CPK mildly elevated - could be an explanation for some of her prox muscle weakness. If she has a myopathy there should be a response to IV steroids and there has been . Thoracic spine MRI negative Appreciate Neuro input consider paraneoplastic panel but very expensive and might not be helpful Most likely side effect of chemotherapy drugs consider outpt Rheum consult CRP is 0. Sed rate noted. Replace low-normal B12. Cont PT/OT. continue decadron 4mg po bid and wean down as able to-continue 4mg bid for now -Neuro ordered Cymbalta 20mg daily for neuropathic pain and titrate up to 30mg in 1-2 weeks -Neuro also ordered MG labs, aldolase, anti-Daniela, Sjogren's, Lambert-Eaton, and SUE labs-all pending -f/u Neuro as outpt (2) Weakness: Plan: see above (3) Dysphagia: Plan: appreciate speech therapy consultation. video swallow results noted. ?recurrent laryngeal nerve impairment as cause of dysphagia Suggested by speech therapy ENT saw her and thinks this could just be vocal cord polyps and esophageal dysmotility Perhaps during intubation from recent mastectomy and some sort of damage to the vocal cords had PEG tube placed 01/2022 for FTT prior to starting chemo but never before had dysphagia until recently -speech recs appreciated (thin liquids only, meds via PEG, etc). 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 WBC count actually normal present since her cancer dx earlier in 2021, and last chemo was April -- thus would be unusual to be chemo-induced TSH wnl B12 low - supplementing B12 to be complete and added IM B12 x 3 days and then continue po B12 Transferrin saturation normal anaplasmosis smear negative peripheral smear -- no suspicious features of bone marrow problem No evidence of bleeding from anywhere, probably all nutritionally related s/p 1 unit of PRBCs and fairly stable H/H at 8 but today slight drop to 7.9 fecal occult blood is negative follow CBC at rehab (5) Malignant neoplasm of central portion of left breast in female, estrogen receptor negative: Plan: PET-CT in May without distant mets if weakness continues and work-up is negative consider repeat CT chest/abd/pelvis f/u with Oncology after discharge and is planning for XRT (6) Former smoker: Plan: noted (7) PEG (percutaneous endoscopic gastrostomy) status: Plan: cont night-time tube feedings per home regimen nutrition consult appreciated see "dysphagia" above -decreased free water flushes to 75mL tid due to hyponatremia which has since improved follow BMP, Phos, Mag in AM (8) Chronic obstructive pulmonary disease: Plan: no flare at this time lungs clear (9) Elevated AST (SGOT): Plan: chronic due to elevated CPK? refeeding? (10) Severe protein-calorie malnutrition: Plan: 2nd to breast ca cont PEG feedings at HS supplement liquid PO feedings during the day (11) Hypertension: Plan: BPs controlled at this time without meds (12) Hyponatremia: Plan: as above, now improving since decreased free water flushes (13) Constipation: Plan: improved, last BM 07/27, goes q3-4 days s/p enema with good results cont bowel regimen Plan DVT proph - high risk of DVT due to h/o cancer, poor mobility -- heparin 5000 BID PT, OT evals appreciated -needs rehab to include PT/OT/Speech therpay, is medically complex and has significant weakness Dispo-awaiting insurance auth for rehab Medically stable for discharge Admission and Anticipated Discharge Date Admission Date: July 23, 2022 Subjective Pt feeling ok. No new concerns. No BM today. Review of Systems Review of Systems: All systems reviewed & are unremarkable except as noted in HPI & below Physical Exam Constitutional: + thin and + frail appearing Eyes: + anicteric sclerae ENMT: external ear and nose normal, oropharynx normal Neck: trachea midline, no thyromegaly Respiratory: normal respiratory effort, lungs clear to auscultation Cardiovascular: RRR, no murmur, no edema Chest (Breasts): Chest: normal inspection of chest Gastrointestinal (Abdomen): normal bowel sounds, soft, nontender, no hepatosplenomegaly Inspection/Auscultation: + abdomen abnormal to inspection (PEG tube in place) Musculoskeletal: Extremities: extremities normal to inspection; no cyanosis and no clubbing Skin: no rashes, warm and dry Neurologic: moves all extremities, + focal motor deficit (3/5 strength prox muscles LEs/UEs bilat) and awake Psychiatric: A+Ox3, euthymic affect Lymphatic: no lymphedema Results & Data Results & Data ([facility]) Vital Signs (Past 12 Hours) Vital Signs Temp Pulse Resp BP Pulse Ox O2 Del Method 07/28/22 22:05 36.5 C 66 20 166/75 H 97 Room Air 07/28/22 16:02 36.9 C 78 16 157/76 H 97 Room Air Laboratory Results 07/28/22 07/28/22 Range/Units 08:09 08:09 WBC 10.29 (4.8-10.8) K/ul RBC 2.45 L (3.93-5.22) M/uL Hgb 7.9 L (12.0-16.0) g/dl Hct 24.2 L (34.1-44.9) % MCV 98.8 (80.0-100.0) fL MCH 32.2 (25.0-34.0) pg MCHC 32.6 (32.0-36.0) g/dL RDW Std Deviation 53.9 H (36.4-46.3) fL RDW Coeff of Emil 15.2 H (11.5-14.5) % Plt Count 120 L (130-400) K/uL MPV 11.8 (9.4-12.3) fL Neutrophils % (Manual) 83 % Lymphocytes % (Manual) 11 % Monocytes % (Manual) 3 % Myelocytes % (Man) 3 % Neutrophils # (Manual) 8.54 H (1.4-6.5) K/uL Total Absolute Neuts 8.54 H (1.4-6.5) K/uL Lymphocytes # (Manual) 1.13 L (1.2-3.4) K/uL Total Abs Lymphocytes 1.13 L (1.2-3.4) K/uL Monocytes # (Manual) 0.31 (0.24-0.82) K/uL Myelocytes # (Manual) 0.31 H (0-0) K/uL Sodium 132 L (136-145) mmol/L Potassium 4.2 (3.5-5.1) mmol/L Chloride 99 (98-107) mmol/L Carbon Dioxide 26 (21-32) mmol/L Anion Gap 7 (3-11) BUN 48 H (6-23) mg/dl Creatinine 0.69 (0.6-1.2) mg/dl Est Cr Clr Drug Dosing 47.3 ml/min Est GFR ( Amer) 100.1 ml/min Est GFR (Non-Af Amer) 86.4 ml/min BUN/Creatinine Ratio 69.6 H (10-20) Glucose 112 H (70-99(Fasting)) mg/dl Calcium 7.9 L (8.5-10.1) mg/dl Phosphorus 3.0 (2.5-4.9) mg/dl Magnesium 2.0 (1.7-2.4) mg/dl Total Bilirubin 0.3 (0.2-1.0) mg/dl AST 44 H (13-39) U/L ALT 31 (7-52) U/L Alkaline Phosphatase 56 (34-104) U/L Total Protein 5.4 L (6.0-8.3) gm/dl Albumin 2.5 L (3.4-5.0) gm/dl Globulin 2.9 (2.5-4.0) gm/dl Albumin/Globulin Ratio 0.9 (0.9-2) PG Care Time/CCT Total # of Minutes Spent Total Time Spent with Patient: Total time spent is greater than 50% in coordination of care (as documented) at patient's floor/unit and/or counseling patient: Coding Level of Care Code 83653 Subseq Hosp Care Lvl 2 Diagnoses Low back pain M54.50 Weakness R53.1 Dysphagia R13.10 Pancytopenia D61.818 Malignant neoplasm of central portion of left breast in female, estrogen receptor negative C50.112; Z17.1 Former smoker Z87.891 PEG (percutaneous endoscopic gastrostomy) status Z93.1 Chronic obstructive pulmonary disease J44.9 Elevated AST (SGOT) R74.01 Severe protein-calorie malnutrition E43 Hypertension I10 Hypertension type: primary hypertension Hyponatremia E87.1 Constipation K59.00 (1) Hypertension Hypertension type: primary hypertension Qualified Code(s): I10 - Essential (primary) hypertension
[2022-07-29] MEDS: HEPARIN SOD 5,000 UNIT/0.5 ML VIAL SQ SCH ×2 (07:51→20:43)
[2022-07-29] MEDS: DULoxetine HCL 20 MG CAP PO SCH (07:56)
[2022-07-29] MEDS: LANSOPRAZOLE 30 MG SOLTAB PEG SCH (07:56)
[2022-07-29] MEDS: HYDROCORTISONE HC 2.5% CRM 30GM TUBE EXT SCH ×3 (07:57→20:43)
[2022-07-29] MEDS: POLYETHYLENE (MIRALAX) 17 GM PACK PO SCH (07:57)
[2022-07-29] MEDS: CYANOCOBALAMIN (B-12) 500 MCG TABLET PEG SCH (07:57)
[2022-07-29] MEDS: dexAMETHasone 4 MG TAB PO SCH ×2 (07:57→21:30)
[2022-07-29] MEDS: LIDOCAINE 5% 1 PATCH TD SCH (07:58)
[2022-07-29] MEDS: HEPARIN 100 UNIT/ML 5ML FLUSH FLUSH PRN (09:53)
[2022-07-29] MEDS: TUBE FEEDING WATER FLUSH GT SCH ×3 (10:30→21:29)
[2022-07-29 10:51] LABS: Eosinophils # (auto) 0.03 K/uL (0-0.50); Eosinophils % (auto) 0.4 %; Hematocrit (blood only) 24.6 % (34.1-44.9); Hemoglobin 8.2 g/dl (12.0-16.0); Immature Granulocytes # (auto) 0.28 K/uL (0.00-0.02); Immature Granulocytes % (auto) 3.9 %; Lymphocytes # (auto) 0.72 K/uL (1.2-3.4); Mean Corpuscular Hemoglobin 32.9 pg (25.0-34.0); Mean Corpuscular Hgb Conc 33.3 g/dL (32.0-36.0); Mean Corpuscular Volume 98.8 fL (80.0-100.0); Mean Platelet Volume 10.7 fL (9.4-12.3); Monocytes # (auto) 1.16 K/uL (0.24-0.82); Neutrophils # (auto) 5.04 K/uL (1.4-6.5); Neutrophils % (auto) 69.7 %; Platelet Count 139 K/uL (130-400); RDW Coefficient of Variation 15.2 % (11.5-14.5); RDW Standard Deviation 54.7 fL (36.4-46.3); Red Blood Count 2.49 M/uL (3.93-5.22); White Blood Count 7.23 K/ul (4.8-10.8)
[2022-07-29 11:14] LABS: BUN Creatinine Ratio 66.2 (10-20); Calcium 8.3 mg/dl (8.5-10.1); Est GFR (African American) 97.9 ml/min; Est GFR (Non-African American) 84.5 ml/min; Magnesium 1.7 mg/dl (1.7-2.4); Phosphorus 2.9 mg/dl (2.5-4.9); Potassium 4.4 mmol/L (3.5-5.1)
--- NOTE | 2022-07-29 19:07 | Hospitalist Progress Note ---
Date of Service July 29, 2022 Assessment & Plan (1) Low back pain: Plan: She c/o lumbar back pain with radiation of that pain into the buttocks/upper posterior thighs at time of admission. She presented with weakness of both hips as well as both shoulders and proximal upper arms. She had also had diffuse myalgias/arthralgias - these are improved since being on decadron x-rays both hips with mild-mod OA but this would not explain her weakness. MRI lumbar spine with and w/o contrast with DJD but this did not explain her symptoms. CPK mildly elevated - could be an explanation for some of her prox muscle weakness. If she has a myopathy there should be a response to steroids and there has been . Thoracic spine MRI negative Appreciate Neuro input consider paraneoplastic panel but very expensive and might not be helpful Most likely side effect of chemotherapy drugs B12 is low in the 200s CRP is 0. Sed rate 38 -Replace low [id number] 3 doses IM and now on B12 per GT -Cont PT/OT-can walk about 10 feet with a walker. -continue decadron 4mg po bid and wean down as able to-continue 4mg bid for now and decrease to 4mg daily for tomorrow -consider outpt Rheum consult -Neuro ordered Cymbalta 20mg daily for neuropathic pain and titrate up to 30mg in 1-2 weeks -Neuro also ordered MG labs, aldolase, anti-Daniela, Sjogren's, Lambert-Eaton, and SUE labs-all pending -Neuro also recommends outpatient 4 limb EMG with repetitive stimulation to further assess for suspected peripheral neuropathy, possible myopathy, and exclude neuromuscular junction abnormality. -f/u Neuro as outpt (2) Weakness: Plan: see above (3) Dysphagia: Plan: appreciate speech therapy consultation. video swallow results noted. ?recurrent laryngeal nerve impairment as cause of dysphagia Suggested by speech therapy ENT saw her and thinks this could just be vocal cord polyps and esophageal dysmotility Perhaps during intubation from recent mastectomy and some sort of damage to the vocal cords had PEG tube placed 01/2022 for FTT prior to starting chemo but never before had dysphagia until recently -speech recs appreciated (thin liquids only, meds via PEG, etc). SHe can have full liquids diet but only the thin items such as ice cream, thin soups, popsicles -GI says nothing for them to do -consult ENT inpatient-suspect vocal cord polyps as above,-follow-up in the office for nasopharyngoscope-soonest appt 09/18--> will see if can get this moved up sooner -needs speech therapy at rehab (4) Pancytopenia: Plan: etiology could be B12 deficiency. WBC count actually normal present since her cancer dx earlier in 2021, and last chemo was April -- thus would be unusual to be chemo-induced Hgb improving up to 8.2 and platelets also now improving up to the 130s with B12 replacement TSH wnl B12 low - supplementing B12 to be complete and added IM B12 x 3 days and then continue per GT B12 Transferrin saturation normal anaplasmosis smear negative peripheral smear -- no suspicious features of bone marrow problem No evidence of bleeding from anywhere, probably all nutritionally related s/p 1 unit of PRBCs fecal occult blood is negative follow CBC at rehab (5) Malignant neoplasm of central portion of left breast in female, estrogen receptor negative: Plan: PET-CT in May without distant mets if weakness continues and work-up is negative consider repeat CT chest/abd/pelvis f/u with Oncology after discharge and is planning for XRT (6) Former smoker: Plan: noted (7) PEG (percutaneous endoscopic gastrostomy) status: Plan: cont night-time tube feedings per home regimen nutrition consult appreciated see "dysphagia" above -decreased free water flushes to 75mL tid due to hyponatremia follow BMP Phos Mag in AM (8) Chronic obstructive pulmonary disease: Plan: no flare at this time lungs clear (9) Elevated AST (SGOT): Plan: chronic due to elevated CPK? refeeding? (10) Severe protein-calorie malnutrition: Plan: 2nd to breast ca cont PEG feedings at HS supplement liquid PO feedings during the day (11) Hypertension: Plan: BPs controlled at this time without meds (12) Hyponatremia: Plan: as above, now improving since decreased free water flushes but remains low at 130 I/Os not being recorded accurately (13) Constipation: Plan: improved, last BM 07/27, goes q3-4 days s/p enema with good results cont bowel regimen Plan DVT proph - high risk of DVT due to h/o cancer, poor mobility -- heparin 5000 BID PT, OT evals appreciated -needs rehab to include PT/OT/Speech therpay, is medically complex and has significant weakness Dispo-awaiting insurance auth for rehab for many days now Medically stable for discharge Admission and Anticipated Discharge Date Admission Date: July 23, 2022 Subjective Pt reports she watched football today with her son-in-law and drank a latte, hung out with her daughter. Only got out of bed to the bedside commode with assistance to urinate. No BM today. Review of Systems Review of Systems: All systems reviewed & are unremarkable except as noted in HPI & below Physical Exam Constitutional: + thin and + frail appearing with alopecia Eyes: + anicteric sclerae Neck: trachea midline, no thyromegaly Respiratory: normal respiratory effort, lungs clear to auscultation Cardiovascular: RRR, no murmur, no edema Chest (Breasts): Chest: normal inspection of chest Gastrointestinal (Abdomen): normal bowel sounds, soft, nontender, no hepatosplenomegaly Inspection/Auscultation: + abdomen abnormal to inspection (PEG tube in place) Musculoskeletal: Extremities: extremities normal to inspection; no cyanosis and no clubbing Skin: no rashes, warm and dry Neurologic: moves all extremities, + focal motor deficit (3/5 strength prox muscles LEs/UEs bilat) and awake Psychiatric: A+Ox3, euthymic affect Lymphatic: no lymphedema Results & Data Results & Data ([facility]) Vital Signs (Past 12 Hours) Vital Signs Temp Pulse Resp BP Pulse Ox O2 Del Method 07/29/22 15:34 36.5 C 74 16 97 Room Air 07/29/22 08:33 36.8 C 71 16 151/71 H 96 Room Air Laboratory Results 07/29/22 07/29/22 Range/Units 10:39 10:39 WBC 7.23 (4.8-10.8) K/ul RBC 2.49 L (3.93-5.22) M/uL Hgb 8.2 L (12.0-16.0) g/dl Hct 24.6 L (34.1-44.9) % MCV 98.8 (80.0-100.0) fL MCH 32.9 (25.0-34.0) pg MCHC 33.3 (32.0-36.0) g/dL RDW Std Deviation 54.7 H (36.4-46.3) fL RDW Coeff of Emil 15.2 H (11.5-14.5) % Plt Count 139 (130-400) K/uL MPV 10.7 (9.4-12.3) fL Immature Gran % (Auto) 3.9 % Neut % (Auto) 69.7 % Lymph % (Auto) 10.0 % Briscoe % (Auto) 16.0 % Eos % (Auto) 0.4 % Baso % (Auto) 0.0 % Neut # (Auto) 5.04 (1.4-6.5) K/uL Lymph # (Auto) 0.72 L (1.2-3.4) K/uL Briscoe # (Auto) 1.16 H (0.24-0.82) K/uL Eos # (Auto) 0.03 (0-0.50) K/uL Baso # (Auto) 0.00 (0-0.2) K/uL Immature Gran # (Auto) 0.28 H (0.00-0.02) K/uL Sodium 130 L (136-145) mmol/L Potassium 4.4 (3.5-5.1) mmol/L Chloride 98 (98-107) mmol/L Carbon Dioxide 26 (21-32) mmol/L Anion Gap 6 (3-11) BUN 47 H (6-23) mg/dl Creatinine 0.71 (0.6-1.2) mg/dl Est Cr Clr Drug Dosing 46.0 ml/min Est GFR ( Amer) 97.9 ml/min Est GFR (Non-Af Amer) 84.5 ml/min BUN/Creatinine Ratio 66.2 H (10-20) Glucose 121 H (70-99(Fasting)) mg/dl Calcium 8.3 L (8.5-10.1) mg/dl Phosphorus 2.9 (2.5-4.9) mg/dl Magnesium 1.7 (1.7-2.4) mg/dl PG Care Time/CCT Total # of Minutes Spent Total Time Spent with Patient: Total time spent is greater than 50% in coordination of care (as documented) at patient's floor/unit and/or counseling patient: Coding Level of Care Code 18139 Subseq Hosp Care Lvl 2 Diagnoses Low back pain M54.50 Weakness R53.1 Dysphagia R13.10 Pancytopenia D61.818 Malignant neoplasm of central portion of left breast in female, estrogen receptor negative C50.112; Z17.1 Former smoker Z87.891 PEG (percutaneous endoscopic gastrostomy) status Z93.1 Chronic obstructive pulmonary disease J44.9 Elevated AST (SGOT) R74.01 Severe protein-calorie malnutrition E43 Hypertension I10 Hypertension type: primary hypertension Hyponatremia E87.1 Constipation K59.00 (1) Hypertension Hypertension type: primary hypertension Qualified Code(s): I10 - Essential (primary) hypertension
[2022-07-29] MEDS: LORazepam 0.5 MG TAB PO PRN (21:29)
[2022-07-29] MEDS: PEPTAMEN 1.5 CAL 1,000 ML BAG GT SCH (21:29)
[2022-07-30 07:02] LABS: Basophils # (auto) 0.01 K/uL (0-0.2); Basophils % (auto) 0.1 %; Eosinophils # (auto) 0.01 K/uL (0-0.50); Eosinophils % (auto) 0.1 %; Hemoglobin 7.9 g/dl (12.0-16.0); Immature Granulocytes # (auto) 0.19 K/uL (0.00-0.02); Immature Granulocytes % (auto) 2.8 %; Lymphocytes # (auto) 0.86 K/uL (1.2-3.4); Lymphocytes % (auto) 12.6 %; Mean Corpuscular Hemoglobin 32.5 pg (25.0-34.0); Mean Corpuscular Hgb Conc 32.9 g/dL (32.0-36.0); Mean Corpuscular Volume 98.8 fL (80.0-100.0); Mean Platelet Volume 11.6 fL (9.4-12.3); Monocytes # (auto) 0.84 K/uL (0.24-0.82); Monocytes % (auto) 12.3 %; Neutrophils # (auto) 4.91 K/uL (1.4-6.5); Neutrophils % (auto) 72.1 %; Platelet Count 114 K/uL (130-400); RDW Coefficient of Variation 15.3 % (11.5-14.5); RDW Standard Deviation 54.9 fL (36.4-46.3); Red Blood Count 2.43 M/uL (3.93-5.22); White Blood Count 6.82 K/ul (4.8-10.8)
[2022-07-30 07:38] LABS: Polychromasia 1+
[2022-07-30 07:45] LABS: Albumin Globulin Ratio 0.9 (0.9-2); Albumin Level 2.6 gm/dl (3.4-5.0); BUN Creatinine Ratio 81.4 (10-20); Bilirubin,Total 0.3 mg/dl (0.2-1.0); Creatinine Clr Calc Pharmacy 55.4 ml/min; Est GFR (African American) 105.4 ml/min; Est GFR (Non-African American) 90.9 ml/min; Globulin 2.9 gm/dl (2.5-4.0); Magnesium 1.7 mg/dl (1.7-2.4); Phosphorus 3.3 mg/dl (2.5-4.9); Potassium 4.4 mmol/L (3.5-5.1); Total Protein 5.5 gm/dl (6.0-8.3)
[2022-07-30] MEDS: LIDOCAINE 5% 1 PATCH TD SCH (08:16)
[2022-07-30] MEDS: POLYETHYLENE (MIRALAX) 17 GM PACK PO SCH (08:17)
[2022-07-30] MEDS: HYDROCORTISONE HC 2.5% CRM 30GM TUBE EXT SCH ×3 (08:17→20:46)
[2022-07-30] MEDS: HEPARIN SOD 5,000 UNIT/0.5 ML VIAL SQ SCH ×2 (08:18→20:46)
[2022-07-30] MEDS: DULoxetine HCL 20 MG CAP PO SCH (08:19)
[2022-07-30] MEDS: CYANOCOBALAMIN (B-12) 500 MCG TABLET PEG SCH (08:19)
[2022-07-30] MEDS: dexAMETHasone 4 MG TAB PO SCH (08:19)
[2022-07-30] MEDS: LANSOPRAZOLE 30 MG SOLTAB PEG SCH (08:19)
[2022-07-30] MEDS: TUBE FEEDING WATER FLUSH GT SCH ×3 (11:32→20:50)
--- NOTE | 2022-07-30 18:27 | Hospitalist Progress Note ---
Date of Service July 30, 2022 Assessment & Plan (1) Low back pain: Plan: She c/o lumbar back pain with radiation of that pain into the buttocks/upper posterior thighs at time of admission. She presented with weakness of both hips as well as both shoulders and proximal upper arms. She had also had diffuse myalgias/arthralgias - these are improved since being on decadron x-rays both hips with mild-mod OA but this would not explain her weakness. MRI lumbar spine with and w/o contrast with DJD but this did not explain her symptoms. CPK mildly elevated - could be an explanation for some of her prox muscle weakness. If she has a myopathy there should be a response to steroids and there has been . Thoracic spine MRI negative Appreciate Neuro input consider paraneoplastic panel but very expensive and might not be helpful or climate change analyst and is extremely costly ie $6000 possible cost to patient as per Pathologist Most likely side effect of chemotherapy drugs B12 is low in the 200s CRP is 0. Sed rate 38 -Replace low G60-yjrypitu 3 doses IM and now on B12 per GT -Cont PT/OT-can walk about 10 feet with a walker. -continue decadron 4mg po bid and wean down as able to-continue 4mg bid for now and decrease to 4mg qAM and 2mg qPM on 07/30 -consider outpt Rheum consult? -Neuro ordered Cymbalta 20mg daily for neuropathic pain and titrate up to 30mg in 1-2 weeks -Neuro also ordered MG labs, aldolase, anti-Daniela, Sjogren's, Lambert-Eaton, and SUE labs-all pending -Neuro also recommends outpatient 4 limb EMG with repetitive stimulation to further assess for suspected peripheral neuropathy, possible myopathy, and exclude neuromuscular junction abnormality. -f/u Neuro as outpt (2) Weakness: Plan: see above Improving, now walking 20 feet with walker (3) Dysphagia: Plan: appreciate speech therapy consultation. video swallow results noted. ?recurrent laryngeal nerve impairment as cause of dysphagia Suggested by speech therapy ENT saw her and thinks this could just be vocal cord polyps and esophageal dysmotility Perhaps during intubation from recent mastectomy and some sort of damage to the vocal cords had PEG tube placed 01/2022 for FTT prior to starting chemo but never before had dysphagia until recently -speech recs appreciated (thin liquids only, meds via PEG, etc). 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 Desir 08/23/22 -needs speech therapy at rehab (4) Pancytopenia: Plan: etiology could be B12 deficiency. WBC count actually normal present since her cancer dx earlier in 2021, and last chemo was April -- thus would be unusual to be chemo-induced Hgb improving up to 8.2 and platelets also now improving up to the 130s with B12 replacement TSH wnl B12 low - supplementing B12 to be complete and added IM B12 x 3 days and then continue per GT B12 Transferrin saturation normal anaplasmosis smear negative peripheral smear -- no suspicious features of bone marrow problem No evidence of bleeding from anywhere, probably all nutritionally related s/p 1 unit of PRBCs fecal occult blood is negative follow CBC at rehab (5) Malignant neoplasm of central portion of left breast in female, estrogen receptor negative: Plan: PET-CT in May without distant mets if weakness continues and work-up is negative consider repeat CT chest/abd/pelvis f/u with Oncology after discharge and is planning for XRT (6) Former smoker: Plan: noted (7) PEG (percutaneous endoscopic gastrostomy) status: Plan: cont night-time tube feedings per home regimen nutrition consult appreciated see "dysphagia" above -decreased free water flushes to 75mL tid due to hyponatremia follow BMP, Mag in AM (8) Chronic obstructive pulmonary disease: Plan: no flare at this time lungs clear (9) Elevated AST (SGOT): Plan: chronic due to elevated CPK? refeeding? (10) Severe protein-calorie malnutrition: Plan: 2nd to breast ca cont PEG feedings at HS supplement liquid PO feedings during the day (11) Hypertension: Plan: BPs controlled at this time without meds (12) Hyponatremia: Plan: as above, now improving since decreased free water flushes -up to 131 I/Os not being recorded accurately (13) Constipation: Plan: improved, ltypically goes q3-4 days Had multiple large loose stools on AM of 07/30 and now wants all laxatives stopped--> change Miralax to daily prn Plan DVT proph - high risk of DVT due to h/o cancer, poor mobility -- heparin 5000 BID PT, OT evals appreciated -needs rehab to include PT/OT/Speech therpay, is medically complex and has significant weakness Dispo-insurance auth for acute rehab denied by Dr. Suazo of [facility] despite Peer to Peer review with myself on 07/30, but auth is approved for SNF. Now CM to look for SNF choices Medically stable for discharge Admission and Anticipated Discharge Date Admission Date: July 23, 2022 Subjective Pt reports having a large loose stool this AM and does not want any more laxatives. Feels she had her best therapy session yet today. Discussed plan for disposition as her peer to peer today with Dr. Suazo of [facility] denied acute rehab but did approve SNF Review of Systems Review of Systems: All systems reviewed & are unremarkable except as noted in HPI & below Physical Exam Constitutional: + thin and + frail appearing Eyes: + anicteric sclerae Neck: trachea midline, no thyromegaly Respiratory: normal respiratory effort, lungs clear to auscultation Cardiovascular: RRR, no murmur, no edema Chest (Breasts): Chest: normal inspection of chest Gastrointestinal (Abdomen): normal bowel sounds, soft, nontender, no hepatosplenomegaly Inspection/Auscultation: + abdomen abnormal to inspection (PEG tube in place) Musculoskeletal: Extremities: extremities normal to inspection; no cyanosis and no clubbing Skin: no rashes, warm and dry Neurologic: moves all extremities, + focal motor deficit (3/5 strength prox muscles LEs/UEs bilat) and awake Psychiatric: A+Ox3, euthymic affect Lymphatic: no lymphedema Results & Data Results & Data ([facility]) Vital Signs (Past 12 Hours) Vital Signs Temp Pulse Pulse Resp BP Pulse Ox O2 Del Method 07/30/22 15:00 36.8 C 76 16 161/77 H 97 Room Air 07/30/22 07:42 36.7 C 76 17 131/71 97 Room Air 07/30/22 07:02 37 C 78 16 136/52 L 97 Room Air Laboratory Results 07/30/22 07/30/22 Range/Units 06:22 06:22 WBC 6.82 (4.8-10.8) K/ul RBC 2.43 L (3.93-5.22) M/uL Hgb 7.9 L (12.0-16.0) g/dl Hct 24.0 L (34.1-44.9) % MCV 98.8 (80.0-100.0) fL MCH 32.5 (25.0-34.0) pg MCHC 32.9 (32.0-36.0) g/dL RDW Std Deviation 54.9 H (36.4-46.3) fL RDW Coeff of Emil 15.3 H (11.5-14.5) % Plt Count 114 L (130-400) K/uL MPV 11.6 (9.4-12.3) fL Immature Gran % (Auto) 2.8 % Neut % (Auto) 72.1 % Lymph % (Auto) 12.6 % [place] % (Auto) 12.3 % Eos % (Auto) 0.1 % Baso % (Auto) 0.1 % Neut # (Auto) 4.91 (1.4-6.5) K/uL Lymph # (Auto) 0.86 L (1.2-3.4) K/uL [place] # (Auto) 0.84 H (0.24-0.82) K/uL Eos # (Auto) 0.01 (0-0.50) K/uL Baso # (Auto) 0.01 (0-0.2) K/uL Immature Gran # (Auto) 0.19 H (0.00-0.02) K/uL Polychromasia 1+ Sodium 131 L (136-145) mmol/L Potassium 4.4 (3.5-5.1) mmol/L Chloride 98 (98-107) mmol/L Carbon Dioxide 28 (21-32) mmol/L Anion Gap 5 (3-11) BUN 48 H (6-23) mg/dl Creatinine 0.59 L (0.6-1.2) mg/dl Est Cr Clr Drug Dosing 55.4 ml/min Est GFR ( Amer) 105.4 ml/min Est GFR (Non-Af Amer) 90.9 ml/min BUN/Creatinine Ratio 81.4 H (10-20) Glucose 124 H (70-99(Fasting)) mg/dl Calcium 8.0 L (8.5-10.1) mg/dl Phosphorus 3.3 (2.5-4.9) mg/dl Magnesium 1.7 (1.7-2.4) mg/dl Total Bilirubin 0.3 (0.2-1.0) mg/dl AST 45 H (13-39) U/L ALT 39 (7-52) U/L Alkaline Phosphatase 53 (34-104) U/L Total Protein 5.5 L (6.0-8.3) gm/dl Albumin 2.6 L (3.4-5.0) gm/dl Globulin 2.9 (2.5-4.0) gm/dl Albumin/Globulin Ratio 0.9 (0.9-2) PG Care Time/CCT Total # of Minutes Spent Total Time Spent with Patient: Total time spent is greater than 50% in coordination of care (as documented) at patient's floor/unit and/or counseling patient: Coding Level of Care Code 50633 Subseq Hosp Care Lvl 2 Diagnoses Low back pain M54.50 Weakness R53.1 Dysphagia R13.10 Pancytopenia D61.818 Malignant neoplasm of central portion of left breast in female, estrogen receptor negative C50.112; Z17.1 Former smoker Z87.891 PEG (percutaneous endoscopic gastrostomy) status Z93.1 Chronic obstructive pulmonary disease J44.9 Elevated AST (SGOT) R74.01 Severe protein-calorie malnutrition E43 Hypertension I10 Hypertension type: primary hypertension Hyponatremia E87.1 Constipation K59.00 (1) Hypertension Hypertension type: primary hypertension Qualified Code(s): I10 - Essential (primary) hypertension
[2022-07-30] MEDS ORDERED: POLYETHYLENE (MIRALAX) 17 GM PACK PO PRN (18:30)
[2022-07-30] MEDS: LORazepam 0.5 MG TAB PO PRN (20:46)
[2022-07-30] MEDS: dexAMETHasone 1 MG TAB PO SCH (20:48)
[2022-07-30] MEDS: PEPTAMEN 1.5 CAL 1,000 ML BAG GT SCH (20:49)
[2022-07-31] MEDS: HEPARIN SOD 5,000 UNIT/0.5 ML VIAL SQ SCH ×2 (07:57→21:08)
[2022-07-31] MEDS: HYDROCORTISONE HC 2.5% CRM 30GM TUBE EXT SCH ×3 (07:58→21:08)
[2022-07-31] MEDS: LANSOPRAZOLE 30 MG SOLTAB PEG SCH (08:03)
[2022-07-31] MEDS: LIDOCAINE 5% 1 PATCH TD SCH (08:03)
[2022-07-31] MEDS: DULoxetine HCL 20 MG CAP PO SCH (08:03)
[2022-07-31] MEDS: CYANOCOBALAMIN (B-12) 500 MCG TABLET PEG SCH (08:04)
[2022-07-31] MEDS: dexAMETHasone 4 MG TAB PO SCH (08:04)
[2022-07-31 08:25] LABS: Basophils # (auto) 0.01 K/uL (0-0.2); Basophils % (auto) 0.1 %; Eosinophils # (auto) 0.03 K/uL (0-0.50); Eosinophils % (auto) 0.3 %; Hematocrit (blood only) 23.7 % (34.1-44.9); Hemoglobin 7.8 g/dl (12.0-16.0); Immature Granulocytes # (auto) 0.17 K/uL (0.00-0.02); Immature Granulocytes % (auto) 1.7 %; Lymphocytes % (auto) 11.8 %; Mean Corpuscular Hemoglobin 32.6 pg (25.0-34.0); Mean Corpuscular Hgb Conc 32.9 g/dL (32.0-36.0); Mean Corpuscular Volume 99.2 fL (80.0-100.0); Mean Platelet Volume 11.1 fL (9.4-12.3); Monocytes # (auto) 1.21 K/uL (0.24-0.82); Monocytes % (auto) 11.9 %; Neutrophils # (auto) 7.54 K/uL (1.4-6.5); Neutrophils % (auto) 74.2 %; Platelet Count 108 K/uL (130-400); RDW Coefficient of Variation 15.4 % (11.5-14.5); RDW Standard Deviation 55.4 fL (36.4-46.3); Red Blood Count 2.39 M/uL (3.93-5.22); White Blood Count 10.16 K/ul (4.8-10.8)
[2022-07-31 08:39] LABS: BUN Creatinine Ratio 65.3 (10-20); Calcium 8.1 mg/dl (8.5-10.1); Creatinine Clr Calc Pharmacy 45.4 ml/min; Est GFR (African American) 96.3 ml/min; Est GFR (Non-African American) 83.1 ml/min; Magnesium 1.6 mg/dl (1.7-2.4); Potassium 4.4 mmol/L (3.5-5.1)
[2022-07-31 09:01] LABS: Polychromasia 1+
[2022-07-31] MEDS ORDERED: MAGNESIUM SULFATE / D5W 1 GM/100 ML BAG IV ONE (09:38)
--- NOTE | 2022-07-31 11:16 | Palliative Care Progress Note ---
Date of Service July 31, 2022 Assessment & Plan (1) Low back pain: Plan: Much improved. Continue steroid taper (2) Generalized weakness: Plan: Awaiting transfer for rehab. Insurance denied [facility]. Case management working on SNF. She is working with PT here. (3) Dysphagia: Plan: Primary nutrition is via PEG. She is tolerating sips of liquids but very much wants to eat. She has an appointment with ENT as an outpatient for further evaluation. (4) Palliative care encounter: Plan: Hayley is eager to start rehab and increase her activity. She very much wants to continue her cancer treatment and will be getting radiation therapy. Admission and Anticipated Discharge Date Admission Date: July 23, 2022 Subjective Denies pain. No prn hydrocodone in 5 days. Reports bowels are working well. LBM 07/30. Ambulating with walker. Review of Systems Review of Systems: ESAS Pain 0/3 Dyspnea 0/3 Nausea 0/3 Drowsiness 0/3 PPS 50% Physical Exam Constitutional: no acute distress Respiratory: normal respiratory effort; no labored breathing Gastrointestinal (Abdomen): nontender Musculoskeletal: Extremities: + muscle atrophy Neurologic: Speech / Cognition: normal cognition Results & Data ([facility]) Vital Signs (Past 12 Hours) Vital Signs Temp Pulse Resp BP Pulse Ox O2 Del Method 07/31/22 07:30 Room Air 07/31/22 07:27 98.4 F 77 14 132/81 96 Room Air PG Care Time/CCT Total # of Minutes Spent Total Time Spent with Patient: Total time spent is greater than 50% in coordination of care (as documented) at patient's floor/unit and/or counseling patient: Coding Level of Care Code 42219 Subseq Hosp Care Lvl 1 Diagnoses Low back pain M54.50 Generalized weakness R53.1 Dysphagia R13.10 Palliative care encounter Z51.5
[2022-07-31] MEDS: TUBE FEEDING WATER FLUSH GT SCH ×3 (12:10→21:10)
[2022-07-31] MEDS ORDERED: IPRATROPIUM BROMIDE/ALBUTEROL respimat INH INH SCH (17:00)
--- NOTE | 2022-07-31 18:20 | Hospitalist Progress Note ---
Date of Service July 31, 2022 Assessment & Plan (1) Low back pain: Plan: Improved from admission. T-spine and L-spine MRIs without bony mets from cancer. Mild DJD but nothing severe. LE weakness - see #2 below. (2) Weakness: Plan: b/l LEs, mainly proximal muscle weakness. minimally elevated CPK earlier this admission but myopathy not suspected. further, she was on steroids and had no significant response to such. seen by neurology - copious tests dispatched, still pending (myasthenia labs, etc). 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 consider paraneoplastic syndrome panel. weaning her steroids. (3) Dysphagia: Plan: appreciate speech therapy consultation earlier this stay. video swallow results noted. ?recurrent laryngeal nerve impairment as cause of dysphagia? other etiology? patient initially had said her swallowing had been impaired since her cancer diagnosis earlier in 2021, but it has gotten significantly worse since her surgery (mastectomy) in 06/2022. speech recs appreciated (full liquids only, meds via PEG, etc). GI was consulted - they did not have anything to offer to help with this issue; and, EGD earlier this summer was completely normal. seen by ENT, Dr Agustin - etiology of dysphagia also uncertain per ENT. outpatient f/u with ENT on 08/23/[address] Desir recommended for in-office laryngoscopy, etc. (4) Pancytopenia: Plan: etiology? present since her cancer dx earlier in 2021, and last chemo was April -- thus would be unusual to be chemo-induced TSH wnl B12 low-normal but doubt playing a role - supplementing B12 to be complete folate wnl anaplasmosis smear negative peripheral smear -- no suspicious features of bone marrow problem s/p 1 unit of PRBCs earlier this stay fecal occult blood is negative repeat cbc am repeat Fe studies - consider Fe replacement if necessary (5) Malignant neoplasm of central portion of left breast in female, estrogen receptor negative: Plan: PET-CT in May without distant mets consider repeat CT chest/abd/pelvis to check for disease progression (6) Former smoker: Plan: noted (7) PEG (percutaneous endoscopic gastrostomy) status: Plan: cont night-time tube feedings nutrition consult appreciated see "dysphagia" above (8) Chronic obstructive pulmonary disease: Plan: add combivent 1 puff qid for cough which is likely COPD-related (9) Elevated AST (SGOT): Plan: chronic due to elevated CPK? 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 (13) Constipation: Plan: improved cont bowel regimen Plan DVT proph - high risk of DVT due to h/o cancer, poor mobility -- heparin 5000 BID awaiting dispo - daughter is appealing [facility] denial by her insurance Admission and Anticipated Discharge Date Admission Date: July 23, 2022 Subjective patient feeling ok - just very eager to get out of hospital and on to rehab to get stronger still disappointed that she can't eat solids -- "I want to eat!" no nausea/emesis no constipation no abd pain LE weakness is mildly improved from time of admission does have mild cough - a little wheezy at times she reports that her daughter is appealing the [facility] denial no new complaints Review of Systems Review of Systems: gen - no fevers cv - no cp pulm - no sputum GI - no diarrhea Physical Exam Physical Exam: gen - very thin/cachectic, NAD; looks good today - much better than my prior visit (1 week ago) skin - generalized pallor mouth - MMM, no thrush or lesions neck - no JVD heart - RRR, s1 s2, no murmur lungs - CTA b/l abd - soft NT ND BS+; PEG tube site clean ext - no edema, pulses 2+ b/l neuro - hip flexion strength b/l about 4/5 b/l; distal strength of feet 5/5; b/l shoulder extension 4-5/5; handgrip 5/5 b/l psych - a/o x 3 Results & Data Results & Data ([facility]) Vital Signs (Past 12 Hours) Vital Signs Temp Pulse Resp BP Pulse Ox O2 Del Method 07/31/22 15:10 36.7 C 74 19 143/76 H 94 Room Air 07/31/22 07:30 Room Air 07/31/22 07:27 36.9 C 77 14 132/81 96 Room Air Laboratory Results Laboratory Results - last 24 hr 07/31/22 07/31/22 07:45 07:45 WBC 10.16 RBC 2.39 L Hgb 7.8 L Hct 23.7 L MCV 99.2 MCH 32.6 MCHC 32.9 RDW Std Deviation 55.4 H RDW Coeff of Emil 15.4 H Plt Count 108 L MPV 11.1 Immature Gran % (Auto) 1.7 Neut % (Auto) 74.2 Lymph % (Auto) 11.8 [place] % (Auto) 11.9 Eos % (Auto) 0.3 Baso % (Auto) 0.1 Neut # (Auto) 7.54 H Lymph # (Auto) 1.20 [place] # (Auto) 1.21 H Eos # (Auto) 0.03 Baso # (Auto) 0.01 Immature Gran # (Auto) 0.17 H Polychromasia 1+ Sodium 131 L Potassium 4.4 Chloride 98 Carbon Dioxide 28 Anion Gap 5 BUN 47 H Creatinine 0.72 Est Cr Clr Drug Dosing 45.4 Est GFR ( Amer) 96.3 Est GFR (Non-Af Amer) 83.1 BUN/Creatinine Ratio 65.3 H Glucose 110 H Calcium 8.1 L Magnesium 1.6 L PG Care Time/CCT Total # of Minutes Spent Total Time Spent with Patient: Total time spent is greater than 50% in coordination of care (as documented) at patient's floor/unit and/or counseling patient: Coding Level of Care Code 47991 Subseq Hosp Care Lvl 2 Diagnoses Low back pain M54.50 Weakness R53.1 Dysphagia R13.10 Pancytopenia D61.818 Malignant neoplasm of central portion of left breast in female, estrogen receptor negative C50.112; Z17.1 Former smoker Z87.891 PEG (percutaneous endoscopic gastrostomy) status Z93.1 Chronic obstructive pulmonary disease J44.9 Elevated AST (SGOT) R74.01 Severe protein-calorie malnutrition E43 Hypertension I10 Hypertension type: primary hypertension Hyponatremia E87.1 Constipation K59.00 (1) Hypertension Hypertension type: primary hypertension Qualified Code(s): I10 - Essential (primary) hypertension
[2022-07-31] MEDS ORDERED: IPRATROPIUM BROMIDE HFA INHALER INH SCH (19:00)
[2022-07-31] MEDS ORDERED: ALBUTEROL HFA 8 GM INHALER INH SCH (19:00)
[2022-07-31] MEDS: PEPTAMEN 1.5 CAL 1,000 ML BAG GT SCH (21:10)
[2022-07-31] MEDS: LORazepam 0.5 MG TAB PO PRN (21:11)
[2022-07-31] MEDS: dexAMETHasone 1 MG TAB PO SCH (21:11)
[2022-08-01] MEDS: CYANOCOBALAMIN (B-12) 500 MCG TABLET PEG SCH (08:42)
[2022-08-01] MEDS: HEPARIN SOD 5,000 UNIT/0.5 ML VIAL SQ SCH ×2 (08:43→20:40)
[2022-08-01] MEDS: DULoxetine HCL 20 MG CAP PO SCH (08:43)
[2022-08-01] MEDS: dexAMETHasone 4 MG TAB PO SCH (08:43)
[2022-08-01] MEDS: LIDOCAINE 5% 1 PATCH TD SCH (08:44)
[2022-08-01] MEDS: HYDROCORTISONE HC 2.5% CRM 30GM TUBE EXT SCH ×3 (08:44→20:40)
[2022-08-01] MEDS: LANSOPRAZOLE 30 MG SOLTAB PEG SCH (08:44)
[2022-08-01 08:47] LABS: Hematocrit (blood only) 23.9 % (34.1-44.9); Hemoglobin 7.9 g/dl (12.0-16.0); Mean Corpuscular Hemoglobin 33.2 pg (25.0-34.0); Mean Corpuscular Hgb Conc 33.1 g/dL (32.0-36.0); Mean Corpuscular Volume 100.4 fL (80.0-100.0); Mean Platelet Volume 11.4 fL (9.4-12.3); Platelet Count 127 K/uL (130-400); RDW Coefficient of Variation 15.6 % (11.5-14.5); RDW Standard Deviation 56.2 fL (36.4-46.3); Red Blood Count 2.38 M/uL (3.93-5.22)
[2022-08-01 09:16] LABS: BUN Creatinine Ratio 69.2 (10-20); Calcium 8.3 mg/dl (8.5-10.1); Creatinine Clr Calc Pharmacy 50.3 ml/min; Est GFR (African American) 102.1 ml/min; Est GFR (Non-African American) 88.1 ml/min; Magnesium 1.7 mg/dl (1.7-2.4); Potassium 4.2 mmol/L (3.5-5.1)
[2022-08-01 09:27] LABS: Ferritin 795.4 ng/ml (8-388)
[2022-08-01] MEDS: TUBE FEEDING WATER FLUSH GT SCH ×3 (11:26→20:43)
[2022-08-01 16:42] LABS: Appearance Urine Clear (Clear); Bilirubin Urine Negative (Negative); Blood Urine Negative (Negative); Color Urine Yellow; Glucose Urine UA Negative (Negative); Ketones Urine Negative (Negative); Leukocyte Esterase Urine Negative (Negative); Nitrite Urine Negative (Negative); Protein Urine Negative (Negative); Specific Gravity Urine 1.014 (1.000-1.030); Urobilinogen Urine Negative (Negative); pH Urine 6.5 (4.5-7.5)
--- NOTE | 2022-08-01 19:08 | Hospitalist Progress Note ---
Date of Service August 01, 2022 Assessment & Plan (1) Leukocytosis: Plan: patient clinically is very stable and looks well. she has no specific infectious symptoms - lab error? could be due to steroids, but previous wbc counts have been wnl. given some mild urine symptoms will check u/a and urine cx. plan to recheck cbc in am. if any fever - blood cx's, etc. defer on abx for now. (2) Low back pain: Plan: Improved from admission. T-spine and L-spine MRIs without bony mets from cancer. Mild DJD but nothing severe. LE weakness - see #2 below. (3) Weakness: Plan: b/l LEs, mainly proximal muscle weakness. minimally elevated CPK earlier this admission but myopathy not suspected. further, she was on steroids and had no significant response to such. seen by neurology - copious tests dispatched, still pending (myasthenia labs, etc). 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 consider paraneoplastic syndrome panel. weaning her steroids. deconditioning was likely playing a role in this issue as well. (4) Dysphagia: Plan: appreciate speech therapy consultation earlier this stay. video swallow results noted. ?recurrent laryngeal nerve impairment as cause of dysphagia? other etiology? patient initially had said her swallowing had been impaired since her cancer diagnosis earlier in 2021, but it has gotten significantly worse since her surgery (mastectomy) in 06/2022. speech recs appreciated (full liquids only, meds via PEG, etc). GI was consulted - they did not have anything to offer to help with this issue; and, EGD earlier this summer was completely normal. seen by ENT, Dr Agustin - etiology of dysphagia also uncertain per ENT. outpatient f/u with ENT on 08/23/[address] Desir recommended for in-office laryngoscopy, etc. (5) Pancytopenia: Plan: etiology? present since her cancer dx earlier in 2021, and last chemo was April -- thus would be unusual to be chemo-induced TSH wnl B12 low-normal but doubt playing a role - supplementing B12 to be complete folate wnl anaplasmosis smear negative peripheral smear -- no suspicious features of bone marrow problem s/p 1 unit of PRBCs earlier this stay fecal occult blood is negative repeat cbc am repeat Fe studies c/w iron deficiency (ferritin high - acute phase reactant/2nd anemia of chronic disease) plan venofer x 1 in am (6) Malignant neoplasm of central portion of left breast in female, estrogen receptor negative: Plan: PET-CT in May without distant mets consider repeat CT chest/abd/pelvis to check for disease progression (7) Former smoker: Plan: noted (8) PEG (percutaneous endoscopic gastrostomy) status: Plan: cont night-time tube feedings nutrition consult appreciated see "dysphagia" above (9) Chronic obstructive pulmonary disease: Plan: added combivent 1 puff qid for cough which is likely COPD-related (10) Elevated AST (SGOT): Plan: chronic due to elevated CPK? 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 (14) Constipation: Plan: improved cont bowel regimen Plan DVT proph - high risk of DVT due to h/o cancer, poor mobility -- heparin 5000 BID awaiting dispo - daughter is appealing [facility] denial by her insurance Admission and Anticipated Discharge Date Admission Date: July 23, 2022 Subjective no new issues overnight walked 90 feet with PT - she was very excited about this and very motivated by her progress feels overall pretty good we discussed her elevated wbc count today - she denies any infectious symptoms; some urinary frequency, but this is somewhat chronic; urine w/o foul odor cough is at baseline denies any new sites of pain Review of Systems Review of Systems: gen - no fevers or chills cv - no chest pain pulm - no dyspnea GI - no pain or nausea Physical Exam Physical Exam: gen - very thin/cachectic, NAD; looks very good today skin - generalized pallor mouth - MMM, no thrush or lesions neck - no JVD heart - RRR, s1 s2, no murmur lungs - CTA b/l abd - soft NT ND BS+ ext - no edema, pulses 2+ b/l neuro - hip flexion strength b/l about 4-5/5 b/l; distal strength of feet 5/5 psych - a/o x 3 Results & Data Results & Data ([facility]) Vital Signs (Past 12 Hours) Vital Signs Temp Pulse Resp BP Pulse Ox O2 Del Method 08/01/22 14:41 36.6 C 82 16 128/75 96 Room Air 08/01/22 07:50 36.8 C 79 18 135/73 96 Room Air Laboratory Results Laboratory Results - last 24 hr 08/01/22 08/01/22 08/01/22 07:57 07:57 16:18 WBC 17.80 H RBC 2.38 L Hgb 7.9 L Hct 23.9 L MCV 100.4 H MCH 33.2 MCHC 33.1 RDW Std Deviation 56.2 H RDW Coeff of Emil 15.6 H Plt Count 127 L MPV 11.4 Sodium 132 L Potassium 4.2 Chloride 98 Carbon Dioxide 28 Anion Gap 6 BUN 45 H Creatinine 0.65 Est Cr Clr Drug Dosing 50.3 Est GFR ( Amer) 102.1 Est GFR (Non-Af Amer) 88.1 BUN/Creatinine Ratio 69.2 H Glucose 107 H Calcium 8.3 L Magnesium 1.7 Iron 24 L TIBC 266 Unsaturated IBC 242 Transferrin % Sat 9 L Ferritin 795.4 H Urine Color Yellow Urine Appearance Clear Urine pH 6.5 Ur Specific [place] 1.014 Urine Protein Negative Urine Glucose (UA) Negative Urine Ketones Negative Urine Blood Negative Urine Nitrite Negative Urine Bilirubin Negative Urine Urobilinogen Negative Ur Leukocyte Esterase Negative PG Care Time/CCT Total # of Minutes Spent Total Time Spent with Patient: Total time spent is greater than 50% in coordination of care (as documented) at patient's floor/unit and/or counseling patient: Coding Level of Care Code 46351 Subseq Hosp Care Lvl 2 Diagnoses Leukocytosis D72.829 Low back pain M54.50 Weakness R53.1 Dysphagia R13.10 Pancytopenia D61.818 Malignant neoplasm of central portion of left breast in female, estrogen receptor negative C50.112; Z17.1 Former smoker Z87.891 PEG (percutaneous endoscopic gastrostomy) status Z93.1 Chronic obstructive pulmonary disease J44.9 Elevated AST (SGOT) R74.01 Severe protein-calorie malnutrition E43 Hypertension I10 Hypertension type: primary hypertension Hyponatremia E87.1 Constipation K59.00 (1) Hypertension Hypertension type: primary hypertension Qualified Code(s): I10 - Essential (primary) hypertension
[2022-08-01] MEDS: dexAMETHasone 1 MG TAB PO SCH (20:41)
[2022-08-01] MEDS: PEPTAMEN 1.5 CAL 1,000 ML BAG GT SCH (20:41)
[2022-08-01] MEDS: LORazepam 0.5 MG TAB PO PRN (20:42)
[2022-08-02] MEDS: HEPARIN 100 UNIT/ML 5ML FLUSH FLUSH PRN (05:45)
[2022-08-02 06:06] LABS: Eosinophils # (auto) 0.01 K/uL (0-0.50); Eosinophils % (auto) 0.1 %; Hematocrit (blood only) 22.6 % (34.1-44.9); Hemoglobin 7.5 g/dl (12.0-16.0); Immature Granulocytes # (auto) 0.12 K/uL (0.00-0.02); Immature Granulocytes % (auto) 1.1 %; Lymphocytes % (auto) 8.4 %; Mean Corpuscular Hemoglobin 32.8 pg (25.0-34.0); Mean Corpuscular Hgb Conc 33.2 g/dL (32.0-36.0); Mean Corpuscular Volume 98.7 fL (80.0-100.0); Mean Platelet Volume 10.1 fL (9.4-12.3); Monocytes # (auto) 1.23 K/uL (0.24-0.82); Monocytes % (auto) 11.5 %; Neutrophils % (auto) 78.9 %; Platelet Count 150 K/uL (130-400); RDW Coefficient of Variation 15.2 % (11.5-14.5); RDW Standard Deviation 55.5 fL (36.4-46.3); Red Blood Count 2.29 M/uL (3.93-5.22); White Blood Count 10.66 K/ul (4.8-10.8)
[2022-08-02 06:48] LABS: BUN Creatinine Ratio 70.8 (10-20); Calcium 8.3 mg/dl (8.5-10.1); Creatinine Clr Calc Pharmacy 50.3 ml/min; Est GFR (African American) 102.1 ml/min; Est GFR (Non-African American) 88.1 ml/min; Potassium 4.4 mmol/L (3.5-5.1)
[2022-08-02 06:56] LABS: RBC Morphology Unremarkable
[2022-08-02] MEDS ORDERED: IRON SUCROSE 200 MG in 0.9 % SODIUM CHLORIDE 100 ML IV ONE (07:45)
[2022-08-02] MEDS: HEPARIN SOD 5,000 UNIT/0.5 ML VIAL SQ SCH ×2 (08:30→20:52)
[2022-08-02] MEDS: HYDROCORTISONE HC 2.5% CRM 30GM TUBE EXT SCH ×3 (08:30→20:52)
[2022-08-02] MEDS: LIDOCAINE 5% 1 PATCH TD SCH (08:31)
[2022-08-02] MEDS: CYANOCOBALAMIN (B-12) 500 MCG TABLET PEG SCH (08:32)
[2022-08-02] MEDS: DULoxetine HCL 20 MG CAP PO SCH (08:32)
[2022-08-02] MEDS: LANSOPRAZOLE 30 MG SOLTAB PEG SCH (08:32)
[2022-08-02] MEDS: dexAMETHasone 4 MG TAB PO SCH (08:32)
[2022-08-02] MEDS ORDERED: SODIUM CHLORIDE 0.9% 250 ML IV PRN (09:17)
[2022-08-02] MEDS: TUBE FEEDING WATER FLUSH GT SCH ×2 (11:21→20:50)
[2022-08-02] MEDS ORDERED: FUROSEMIDE 20 MG TAB PO ONE (12:00)
--- NOTE | 2022-08-02 18:19 | Hospitalist Progress Note ---
Date of Service August 02, 2022 Assessment & Plan (1) Leukocytosis: Plan: was elevated yesterday -- uncertain why it increased prior to that her WBCs had been normal today it is normal suspect lab error she has no infectious symptoms/signs at this time ua and urine cx negative (2) Low back pain: Plan: Improved from admission. T-spine and L-spine MRIs without bony mets from cancer. Mild DJD but nothing severe. LE weakness - see #2 below. (3) Weakness: Plan: b/l LEs, mainly proximal muscle weakness. minimally elevated CPK earlier this admission but myopathy not suspected. further, she was on steroids and had no significant response to such. seen by neurology - copious tests dispatched, still pending (myasthenia labs, etc). 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 consider paraneoplastic syndrome panel. weaning her steroids. wean to 4mg/day today. wean off next 7-10 days. deconditioning was likely playing a major role in this issue as well. cont PT/OT. (4) Dysphagia: Plan: appreciate speech therapy consultation earlier this stay. video swallow results noted. ?recurrent laryngeal nerve impairment as cause of dysphagia? other etiology? patient initially had said her swallowing had been impaired since her cancer diagnosis earlier in 2021, but it has gotten significantly worse since her surgery (mastectomy) in 06/2022. speech recs appreciated (full liquids only, meds via PEG, etc). GI was consulted - they did not have anything to offer to help with this issue; and, EGD earlier this summer was completely normal. seen by ENT, Dr Agustin - etiology of dysphagia also uncertain per ENT. outpatient f/u with ENT on 08/23/[address] Desir recommended for in-office laryngoscopy, etc. (5) Pancytopenia: Plan: etiology? present since her cancer dx earlier in 2021, and last chemo was April -- thus would be unusual to be chemo-induced TSH wnl B12 low-normal but doubt playing a role - supplementing B12 to be complete folate wnl anaplasmosis smear negative peripheral smear -- no suspicious features of bone marrow problem s/p 1 unit of PRBCs earlier this stay fecal occult blood is negative repeat Fe studies c/w iron deficiency (ferritin high - acute phase reactant/2nd anemia of chronic disease) venofer 200mg x 1 today due to hemoglobin 7.5 will give 1 unit of PRBCs today followed by dose of lasix repeat CBC am (6) Malignant neoplasm of central portion of left breast in female, estrogen receptor negative: Plan: PET-CT in May without distant mets consider repeat CT chest/abd/pelvis to check for disease progression but defer to Dr Morgan in the cancer clinic (7) Former smoker: Plan: noted with underlying COPD (8) PEG (percutaneous endoscopic gastrostomy) status: Plan: cont night-time tube feedings nutrition consult appreciated see "dysphagia" above (9) Chronic obstructive pulmonary disease: Plan: combivent 1 puff qid prn cough (10) Elevated AST (SGOT): Plan: chronic due to elevated CPK? 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 (14) Constipation: Plan: improved cont bowel regimen Plan DVT proph - heparin 5000 BID [facility] appeal denied thus, d/c to home with daughter tomorrow Admission and Anticipated Discharge Date Admission Date: July 23, 2022 Subjective patient w/o any new complaints tolerated Fe infusion this am hopeful for d/c today we discussed blood transfusion today - agreeable to such has not tried the combivent yet for her cough Review of Systems Review of Systems: cv - no chest pain pulm - no dyspnea or [facility] - no pain, nausea, emesis musculo - no new areas of pain Physical Exam Physical Exam: gen - very thin/cachectic but NAD, pleasant skin - generalized pallor mouth - MMM, no thrush or lesions neck - no JVD heart - RRR, s1 s2, no murmur lungs - CTA b/l abd - soft NT ND BS+; PEG tube site clean ext - no edema, pulses 2+ b/l neuro - hip flexion strength b/l about 4-5/5 b/l; distal strength of feet 5/5 -- no changes psych - a/o x 3 Results & Data Results & Data ([facility]) Vital Signs (Past 12 Hours) Vital Signs Temp Pulse Pulse Resp BP BP Pulse Ox 08/02/22 15:00 36.9 C 79 18 176/79 H 97 08/02/22 14:00 36.8 C 69 16 158/73 H 95 08/02/22 13:30 36.6 C 75 18 173/74 H 95 08/02/22 13:00 36.6 C 76 18 164/79 H 95 08/02/22 12:45 36.7 C 76 18 168/81 H 95 08/02/22 12:22 36.7 C 80 18 164/81 H 93 08/02/22 09:09 36.8 C 84 18 146/74 H 96 O2 Del Method 08/02/22 15:00 08/02/22 14:00 08/02/22 13:30 08/02/22 13:00 08/02/22 12:45 08/02/22 12:22 08/02/22 09:09 Room Air Laboratory Results Laboratory Results - last 24 hr 08/02/22 08/02/22 08/02/22 05:43 05:43 09:41 WBC 10.66 RBC 2.29 L Hgb 7.5 L Hct 22.6 L MCV 98.7 MCH 32.8 MCHC 33.2 RDW Std Deviation 55.5 H RDW Coeff of Emil 15.2 H Plt Count 150 MPV 10.1 Immature Gran % (Auto) 1.1 Neut % (Auto) 78.9 Lymph % (Auto) 8.4 [place] % (Auto) 11.5 Eos % (Auto) 0.1 Baso % (Auto) 0.0 Neut # (Auto) 8.40 H Lymph # (Auto) 0.90 L [place] # (Auto) 1.23 H Eos # (Auto) 0.01 Baso # (Auto) 0.00 Immature Gran # (Auto) 0.12 H RBC Morphology Unremarkable Sodium 130 L Potassium 4.4 Chloride 98 Carbon Dioxide 28 Anion Gap 4 BUN 46 H Creatinine 0.65 Est Cr Clr Drug Dosing 50.3 Est GFR ( Amer) 102.1 Est GFR (Non-Af Amer) 88.1 BUN/Creatinine Ratio 70.8 H Glucose 109 H Calcium 8.3 L Blood Type B Positive Antibody Screen NEGATIVE Crossmatch See Detail PG Care Time/CCT Total # of Minutes Spent Total Time Spent with Patient: Total time spent is greater than 50% in coordination of care (as documented) at patient's floor/unit and/or counseling patient: Coding Level of Care Code 86524 Subseq Hosp Care Lvl 2 Diagnoses Leukocytosis D72.829 Low back pain M54.50 Weakness R53.1 Dysphagia R13.10 Pancytopenia D61.818 Malignant neoplasm of central portion of left breast in female, estrogen receptor negative C50.112; Z17.1 Former smoker Z87.891 PEG (percutaneous endoscopic gastrostomy) status Z93.1 Chronic obstructive pulmonary disease J44.9 Elevated AST (SGOT) R74.01 Severe protein-calorie malnutrition E43 Hypertension I10 Hypertension type: primary hypertension Hyponatremia E87.1 Constipation K59.00 (1) Hypertension Hypertension type: primary hypertension Qualified Code(s): I10 - Essential (primary) hypertension
[2022-08-02] MEDS: PEPTAMEN 1.5 CAL 1,000 ML BAG GT SCH (20:50)
[2022-08-02] MEDS: METOPROLOL TARTRATE 25 MG TAB PO SCH (21:01)
[2022-08-02] MEDS: LORazepam 0.5 MG TAB PO PRN (21:01)
[2022-08-03] MEDS: LANSOPRAZOLE 30 MG SOLTAB PEG SCH (08:46)
[2022-08-03] MEDS: CYANOCOBALAMIN (B-12) 500 MCG TABLET PEG SCH (08:46)
[2022-08-03] MEDS: dexAMETHasone 4 MG TAB PO SCH (08:47)
[2022-08-03] MEDS: METOPROLOL TARTRATE 25 MG TAB PO SCH (08:47)
[2022-08-03] MEDS: DULoxetine HCL 20 MG CAP PO SCH (08:47)
[2022-08-03] MEDS: HYDROCORTISONE HC 2.5% CRM 30GM TUBE EXT SCH ×2 (08:49→13:48)
[2022-08-03] MEDS: LIDOCAINE 5% 1 PATCH TD SCH (08:49)
[2022-08-03] MEDS: HEPARIN SOD 5,000 UNIT/0.5 ML VIAL SQ SCH (08:50)
[2022-08-03 09:22] LABS: Hematocrit (blood only) 29.7 % (34.1-44.9); Hemoglobin 9.8 g/dl (12.0-16.0); Mean Corpuscular Hemoglobin 31.8 pg (25.0-34.0); Mean Corpuscular Volume 96.4 fL (80.0-100.0); Mean Platelet Volume 10.7 fL (9.4-12.3); Platelet Count 133 K/uL (130-400); RDW Coefficient of Variation 17.9 % (11.5-14.5); RDW Standard Deviation 63.2 fL (36.4-46.3); Red Blood Count 3.08 M/uL (3.93-5.22); White Blood Count 8.37 K/ul (4.8-10.8)
[2022-08-03 10:00] LABS: Alanine Aminotransferase 40 U/L (7-52); Aspartate Aminotransferase 43 U/L (13-39); BUN Creatinine Ratio 66.2 (10-20); Calcium 8.4 mg/dl (8.5-10.1); Creatinine Clr Calc Pharmacy 43.9 ml/min; Est GFR (African American) 93.2 ml/min; Est GFR (Non-African American) 80.4 ml/min; Magnesium 1.4 mg/dl (1.7-2.4); Potassium 4.3 mmol/L (3.5-5.1)
[2022-08-03] MEDS: MAGNESIUM SULFATE / D5W 1 GM/100 ML BAG IV SCH ×2 (11:33→13:47)
[2022-08-03] MEDS: TUBE FEEDING WATER FLUSH GT SCH (12:58)
--- NOTE | 2022-08-03 16:54 | Discharge Summary ---
Date of Service date of admission - July 20, 2022 date of discharge - August 03, 2022 Admission HPI Per Admitting Provider Hayley Benson is a 71-year-old female with a past medical history of stage III left-sided breast cancer status post chemotherapy and mastectomy, hypertension PCP medication reconciliation: Zofran 8 mg every 8 hours as needed, Compazine 10 mg every 6 hours as needed, tramadol 50 mg every 6 hours as needed, tube feeding and to 50 cc flushes, lorazepam 0.5 mg at bedtime as needed for sleep, acyclovir 200 mg twice daily, Decadron 16 mg daily, dronabinol 5 mg daily, filgrastim 300 mcg [frequency?], Loratadine daily, benzonatate as needed, albuterol HFA as needed, nystatin daily, budesonideformoterol (Symbicort) twice daily Hayley is seen with her daughter Carleen at the bedside. Hayley reports that she has had progressive global weakness and fatigue for the last 2 weeks, which has significantly limited her and seems worse in the last 3 days. She does have some increased pain in her left shoulder postoperatively after mastectomy, but reports that her pain is generally global, worsened with exertion, and she has severe fatigue where she will need to sit down and rest after being on her feet for only a couple of minutes. She reports her pain is actually worse in her bilateral hips but is also in her knees, ankles, shoulders, and elbows. Denies numbness/tingling/paresthesia. Feels the weakness is not limited to one side or upper versus lower extremities. She has not had fever, chills, sweats, lightheadedness, dizziness. While she has had shortness of breath in the past, she reports that she has not had limiting shortness of breath or worsening of breathing or chest pain with the symptoms. She notes that her prior shortness of breath and wet cough completely resolved after starting Symbicort, and notes that by her last x-ray her mucous plugging lung collapse had also resolved. She reports she did stop her Symbicort for several days out of concern it might of been causing her weakness, stopping this has been not produced any benefit. She takes only loratadine and as needed medications otherwise, has not noticed much benefit from Tylenol, tramadol, or immediate release oxycodone or immediate release hydrocodone. Her pain goes down to a 0/10 when laying in bed and while at rest, and significantly increases while on her feet and with exertion globally. Principal Diagnosis 1. low back pain 2. b/l lower extremity weakness 3. dysphagia 4. hyponatremia 5. pancytopenia 6. breast cancer 7. PEG tube status 8. constipation Discharge Exam gen - very thin/cachectic but NAD, pleasant skin - generalized pallor mouth - MMM, no thrush or lesions neck - no JVD heart - RRR, s1 s2, no murmur lungs - CTA b/l abd - soft NT ND BS+; PEG tube site clean ext - no edema, pulses 2+ b/l neuro - hip flexion strength b/l about 4-5/5 b/l; distal strength of feet 5/5 -- no changes psych - a/o x 3 Discharge Data Allergies Allergy/AdvReac Type Severity Reaction Status Date / Time No Known Drug Allergies Allergy Unknown Verified 08/09/22 09:06 pistachio nut AdvReac Severe Red face Verified 07/18/22 18:42 and hands ~ Throwing up Consultations Palliative Care Neurology Gastroenterology Otolaryngology PT, OT Speech therapy Nutrition Procedures Performed 2 units PRBCs Ordered Studies Hip/Pelvis X-Ray 07/20/22 12:35 XR hip SAMIR 2v w pelvis HISTORY: 71 years-old Female worsening bilat hip pain with weightbearing chronic bilateral hip pain COMPARISON: PET CT 06/06/2022 TECHNIQUE: AP view of the pelvis with 2 views of the bilateral hips FINDINGS: Moderate colonic fecal retention. There is an apparent gastrostomy tube. Pelvic basin phleboliths. Mild to moderate osteoarthritis of the hips. No acute fracture, dislocation or definite avascular necrosis. IMPRESSION: No acute fracture or dislocation. ACT 112: Negative or not required by law. The above report was generated using voice recognition software. It may contain grammatical, syntax or spelling errors. Electronically signed by: Vlad Shelton M.D. 07/20/2022 3:25 PM Lumbar Spine MRI 07/21/22 12:29 MR lumbar spine wo/w con CLINICAL HISTORY: 71 years-old Female with back pain, b/l leg pain/weakness; h/o breast ca. Chronic low back pain with bilateral lower extremity weakness. History of breast cancer COMPARISON: PET CT 06/06/2022 TECHNIQUE: Multiplanar, multi sequence MRI of the lumbar spine was performed without intravenous contrast. FINDINGS: Electronics Engineering Technician localizer images demonstrate no gross extraspinal abnormality. Conus medullaris terminates at T12-L1. Normal signal within the imaged thoracic spinal cord and cauda equina. Motion degraded exam. Right-sided renal cysts are redemonstrated. Diffusely heterogeneous appearance of the marrow, likely secondary to bone demineralization. No discrete marrow replacing lesions are identified. Nonspecific diffuse edema throughout the musculature. No acute fracture, subluxation or endplate erosion. No epidural collections. T12-L1: Mild intervertebral disc space narrowing with spondylitic spurring and moderate facet arthrosis. No central canal or neural foraminal stenosis. L1-L2: Mild spondylitic spurring with moderate facet arthrosis. No central canal or neural foraminal stenosis. L2-L3: Mild spondylitic spurring with small circumferential annular disc bulge. Moderate facet arthrosis with facet effusions. Flattening of the ventral thecal sac without significant central canal or right foraminal stenosis. Mild inferior left foraminal narrowing. L3-L4: Spondylitic spurring with small circumferential annular disc bulge. Ligamentum flavum thickening with moderate facet arthrosis and bilateral facet effusions. No central canal stenosis. Mild left with mild to moderate right neural foraminal narrowing. L4-L5: Mild spondylitic spurring with ligamentum thickening, moderate facet arthrosis and right greater than left facet effusions. Central canal is patent. Mild right with jzvk-fa-hdytejry left neural foraminal narrowing. L5-S1: Mild spondylitic spurring with mild to moderate facet arthrosis. No central canal or neural foraminal stenosis. No abnormal enhancement. IMPRESSION: 1. Mild discogenic degeneration with mostly moderate facet arthrosis. There is no high-grade central canal or neural foraminal narrowing. 2. Diffuse heterogeneity of the marrow, likely secondary to bone demineralization. There was no evidence of bony metastatic disease on the comparison PET/CT from 06/06/2022. 3. No abnormal enhancement. ACT 112: Negative or not required by law. The above report was generated using voice recognition software. It may contain grammatical, syntax or spelling errors. Dictated: 07/21/2022 2:20 PM Transcribed: 07/21/2022 3:07 PM Hayley [id number] [email or web address]_[email or web address] Electronically signed by: Vlad Shelton M.D. 07/21/2022 4:13 PM Videofluoroscopic Swallow 07/23/22 11:36 MODIFIED BARIUM SWALLOW CLINICAL HISTORY: r/o aspiration COMPARISON STUDY: None. FLUOROSCOPY TIME: 0.6 minutes. TECHNIQUE: A modified barium swallow was performed in conjunction with Speech Pathology. The patient ingested varying consistencies of barium containing material. Video fluoroscopy was performed. FINDINGS: Right sided Vquifw-c-Sxwl is incidentally noted. Impaired swallowing mechanism was noted with diminished opening of the upper esophageal sphincter. This resulted in tracheal aspiration with delayed clearance of the thin liquids. No additional consistencies were evaluated given impaired swallowing mechanism. IMPRESSION: 1. Impaired swallowing mechanism. Tracheal aspiration with thin liquids due to diminished upper esophageal sphincter opening and delayed clearance. 2. Full recommendations by Speech pathology to follow. ACT 112: Negative or not required by law. Electronically signed by: Regino Hayden M.D. 07/23/2022 3:21 PM Thoracic Spine MRI 07/24/22 13:50 MRI OF THE THORACIC SPINE WITH AND WITHOUT CONTRAST CLINICAL HISTORY: Breast cancer, lower extremity weakness. COMPARISON: PET/CT June 06, 2022. TECHNIQUE: Utilizing a 1.5 Radha magnet and dedicated coil, multiplanar, multiecho imaging of the thoracic spine was performed before and after the intravenous administration of 4 cc. FINDINGS: Alignment of the thoracic spine is anatomic. Vertebral body heights are maintained. There is no thoracic spine fracture. Thoracic spine marrow signal is heterogeneous but there are no findings to strongly suggest skeletal metastatic disease within the thoracic spine. Thoracic cord signal and caliber are normal. There is no abnormal cord enhancement. No intracanalicular mass, fluid collection or abnormal enhancement is noted on the postcontrast images. Paravertebral soft tissues are unremarkable. Central canal and neural foramen are patent. There is no disc herniation. IMPRESSION: 1. Normal thoracic cord signal and caliber. Patent central canal and neural foramen. No thoracic spine disc herniations. 2. Marrow signal heterogeneity, probably within normal limits. No convincing evidence for skeletal metastatic disease within the thoracic spine. ACT 112: Negative or not required by law. Electronically signed by: Regino Hayden M.D. 07/24/2022 3:59 PM Hospital Course (1) Low back pain: Patient presented complaining of pain in her lumbar spine region and paraspinal regions as well. Some of the pain radiated into the buttocks and upper thighs b/l. She underwent T-spine and L-spine MRIs without bony mets from cancer. Mild DJD of the L-spine was noted but no significant neurological compromise was seen on either MRI study. CPK was minimally elevated during the stay - 290 at peak, improving to <150 before discharge. The cause of the abnormal CPK and the significance of this abnormality was uncertain. She was placed on empiric dexamethasone and she had no improvement in her back pain or LE weakness with such. Thus, I did not suspect any myopathy or myositis. Her back pain ultimately improved over the course of her lengthy stay. With respect to her bilateral LE weakness - see #2 below. (2) Weakness: b/l LEs, mainly proximal muscle weakness. She had minimally elevated CPK as noted in #1 above. MRI of the thoracic and lumbar spine failed to show a specific etiology for her weakness. B12 level was low-normal but unlikely to be the primary culprit in her symptoms (B12 level = 277). Dyof-fbi-ijxa B12 supplementation was advised. She was seen by [facility] neurology, Dr Cristino Crowder. Copious tests dispatched to rule out autoimmune disease, myasthenia gravis, etc as the cause of her weakness. All of these labs were pending at time of discharge. Neuropathy 2nd to prior chemotherapy for cancer as the cause of her leg symptoms? Dr Crowder started her on cymbalta 20mg daily for possible neuropathy. Paraneoplastic syndrome? Other etiology? I suspect an element of severe deconditioning was also playing a major role in her weakness. She received PT/OT services during her prolonged stay and she did make improvement in her ability to ambulate. Prior to discharge was walking nearly 100 feet with assistance. She received IV then PO steroids (dexamethasone) throughout her entire stay. These will be weaned off shortly after discharge. She will follow-up with [facility] Neurology post-discharge. She will have home PT/OT. (3) Dysphagia: Patient reported intermittent struggles with this since mid-2021. However, her swallowing got significantly worse following her left-sided mastectomy in early 06/2022. She was seen by speech therapy and underwent a video swallow evaluation. Per the report - "Impaired swallowing mechanism. Tracheal aspiration with thin liquids due to diminished upper esophageal sphincter opening and delayed clearance." Speech therapy postulated that perhaps she had recurrent laryngeal nerve impairment as cause of her dysphagia? other etiology? Speech therapy recommended full liquids only and all medications via her PEG tube. In addition to the above she was seen by both [facility] GI and ENT. GI did not have anything to offer to help with this issue; and, EGD earlier this summer 2021 was completely normal. Seen by ENT, Dr Agustin - etiology of dysphagia also uncertain per ENT. outpatient f/u with ENT on 08/23/[address] Desir recommended for in-office laryngoscopy, etc. At discharge she was tolerating full liquid diet. She continues with PEG tube feedings. (4) Pancytopenia: etiology? present since her cancer dx earlier in 2021, and last chemo was April 2022 -- thus would be unusual to be chemo-induced. TSH wnl B12 low-normal but doubt playing a role - supplementing B12 to be complete folate wnl anaplasmosis smear negative peripheral smear -- no suspicious features of bone marrow problem s/p 2 units of PRBCs during her stay fecal occult blood was negative Fe studies c/w iron deficiency (ferritin was high but transferrin sat was low) s/p venofer 200mg x 1 during the stay discharge hemoglobin = 9.8, with baseline Hb 8-9 discharge platelets = 133 (improved) discharge WBC count = 8.3 (improved) f/u with hematology/oncology, Dr Kika Morgan at [facility] (5) Malignant neoplasm of central portion of left breast in female, estrogen receptor negative: initial dx mid-2021 PET-CT in May 2022 without distant mets s/p left sided mastectomy 06/2022 f/u with Dr Kika Morgan at [facility] within 1-2 weeks of discharge (6) Former smoker: noted with underlying COPD (7) PEG (percutaneous endoscopic gastrostomy) status: cont night-time tube feedings nutrition consult provided recommendations for her home tube feedings recipe as follows -- Peptamen 1.5 - at night-time via PEG - 65cc/hr from ~8pm to 11am next morning Free Water Flushes 60cc BID (8) Chronic obstructive pulmonary disease: albuterol 2 puffs qid prn cough cont daily maintenance inhalers (9) Elevated AST (SGOT): chronic due to elevated CPK? doubt, as CPK normalized and AST remained slightly high baseline AST ~40-50 ALT wnl etiology uncertain (10) Severe protein-calorie malnutrition: 2nd to breast ca cont PEG feedings at HS supplement liquid PO feedings during the day weight was stable during the stay (11) Hypertension: BPs uncontrolled during the stay. Added metoprolol 12.5mg via PEG BID. Recommended she check her BPs at home. (12) Hyponatremia: chronic likely SIADH from cancer Na range - 130-135 at baseline Na at discharge 132 (13) Constipation: improved following multiple agents cont bowel regimen post-discharge Plan patient was hoping to d/c to [facility] for acute inpatient rehab but her insurance denied her request. she is returning home at time of discharge with services. Home Health Attestation I certify that this patient is under my care and that I, or a physicians medical records assistant working with me, had a face to-face encounter that meets the home health cdqk-tx-qmxk encounter requirements with this patient. The encounter with the patient was in whole, or in part, for the following medical condition, which is the primary reason for home health care (list medical condition): I certify that, based on my findings, the following services are medically necessary home health services: My clinical findings support the need for the above services because: Further, I certify that my clinical findings support that this patient is homebound (i.e. absences from home require considerable and taxing effort and are for medical reasons or episcopal services or infrequently or of short duration when for other reasons) because: Certification for Home Health Services: Based on the above findings, I certify that this patient is confined to the home and needs intermittent halfway care, physical therapy and/or speech therapy or continues to need occupational therapy. The patient is under my care, and I have initiated the establishment of the plan of care. This patient will be followed by a physician who will periodically review the plan of care. Total Time Total Time Spent Total Time Spent (In Minutes): 60 Discharge Plan Discharge Items Patient Disposition: Home - Home Health Services Reason For Visit: UNCONTROLLED BACK PAIN Discharge Diagnosis: 1. low back pain 2. b/l leg weakness 3. dysphagia 4. pancytopenia 5. hyponatremia 6. breast cancer Activity: Resume your previous activity Activity Comment: as tolerated Non-emergency contact: Primary Care Provider, Specialist and Oncologist Call non-emergency contact if: you have any medication questions, your symptoms worsen, your pain is not controlled, your pain is worsening, your pain is unusual for you, your pain is concerning for you and you have a fever Follow-up/Referrals: Cristino Crowder MD [Physician] - 08/09/22 9:00 am Laurel Dougherty MD [Primary Care Provider] - 08/10/22 11:00 am (appointment with Amanda Lane at 11:00 on August 10) Kika Morgan MD [Physician] - (Dr Morgan's office will be contacting you with an appointment; she will be seeing you in 1-2 weeks ) Kostas Desir MD [Physician] - 08/23/22 11:00 am (Please arrive 15 minutes early to your appointment. This visit will require an in office scope to be done- This will require a covid test to be completed 3 days prior to your appointment. Please go to any [facility] lab on August 20 to get your covid test completed. ) Diet: Full liquid and Other - See Diet Comment Diet Comment: Peptamen 1.5 tube feedings at night-time via PEG (8pm to 11am next morning) Addtl Attending Provider Instructions: Mrs Benson, You were hospitalized at [facility] for back pain and bilateral leg weakness. You were also having significant difficulty with swallowing. We performed several studies to determine the cause of your back pain and leg weakness. Thoracic and lumbar spine MRI scans did not show any cancer of the bones. You do have arthritis in your lumbar spine which can cause pain & discomfort. Dr Cristino Crowder from neurology saw you for the leg weakness. It is possible that the weakness was due to side effects from chemotherapy (causing neuropathy), deconditioning, and other factors. Dr Crowder will be seeing you for additional testing, if necessary. Speech therapy saw you for your swallowing difficulty; ENT and gastroenterology were also involved for this problem. It is uncertain what is causing the difficulty swallowing. ENT plans to see you in the office to do additional testing. You made great strides with your walking while here. You did very well with PT and OT. During the stay you received 2 units of blood and 1 round of IV iron for your anemia. Recommendations - 1. Full liquids are allowed by mouth at home. Please continue to give all medications via your PEG tube. 2. PEG feedings from ~8pm to ~11am the next morning. Please give free water flushes twice daily - 60cc each time - via your PEG. Do this about 1100am and 8pm each day. You will also receive additional water with your medications. 3. Dexamethasone steroid taper - take this starting tomorrow morning; it is a 5-day taper. 4. Dr Crowder started you on duloxetine 20mg once daily for suspected neuropathy. 5. Take an fwqq-aam-agfkibu vitamin B12 supplement 1000mcg once daily via your PEG tube. You can also take it sublingual if desired (they have sublingual options in addition to standard crushable tablets). 6. I have provided medication for pain and nausea if needed. 7. Your blood pressures have been very high during your stay, possibly due to steroids, pain, anxiety, etc. Tgqh-zfd-ucwb we started a very low-dose medication for the blood pressure. Take metoprolol 12.5mg via PEG twice daily. 8. If you can please check your blood pressure at home once or twice daily to see what your numbers are at home. Generally they are better than numbers obtained while hospitalized. Write these down and give the numbers to your family doctor for review. 9. Take a magnesium supplement via your PEG once daily. 10. If necessary you can use miralax once or twice daily via your PEG for constipation. Follow-up -- see separate section Return to [facility] if - * you have fevers over 100 degrees * you have uncontrolled pain * you have shortness of breath or chest pains * you have difficulty walking * any other concerns It was our pleasure to care for you at [facility]! Enjoy your Thanksgiving later this month! Dr Hernandez Pending Studies at Discharge: Yes Studies:: labs to rule out other conditions that can cause leg weakness Stand-Alone Forms: My [facility], Smoking Cessation Medications and DC Order Prescriptions: New metoprolol tartrate 25 mg Tablet 12.5 mg feeding tube BID Qty: 60 1RF duloxetine [Cymbalta] 20 mg Capsule,Delayed Release(Dr/Ec) 20 mg PO QAM Qty: 30 1RF Rx Instructions: open capsule, mix with water, and give via PEG tube every morning. lansoprazole [Prevacid SoluTab] 30 mg Tablet,Disintegrat, Delay Rel 30 mg PEG QAM Qty: 30 2RF Peptamen 1.5 0.068 gram- 1.5 kcal/mL Liquid 1,000 ml G-tube DAILY@2000 Qty: 1000 0RF cyanocobalamin (vitamin B-12) 500 mcg Tablet 1,000 mcg PEG QAM Qty: 30 2RF Rx Instructions: purchase dars-cxv-sykkyzf magnesium oxide 400 mg magnesium tablet 400 mg feeding tube DAILY Qty: 30 2RF Continued budesonide-formoterol [Symbicort] 160-4.5 mcg/actuation HFA aerosol inhaler 2 puff inhalation BID Qty: 10.2 2RF Changed furosemide [Lasix] 20 mg tablet 20 mg feeding tube DAILY PRN (Reason: Fluid Retention) Qty: 1 0RF albuterol sulfate 90 mcg/actuation HFA aerosol inhaler 2 inh inhalation QID PRN (Reason: shortness of breath or wheezing or cough) Qty: 8.5 1RF Discontinued nystatin 100,000 unit/mL suspension 4 ml PO DAILY Qty: 250 0RF Rx Instructions: swish and swallow ondansetron HCl 8 mg tablet 8 mg PO Q8H PRN (Reason: Nausea) prochlorperazine maleate [Compazine] 10 mg tablet 10 mg PO Q6H PRN (Reason: Nausea) tramadol 50 mg tablet 50 mg PO Q6H PRN (Reason: Pain) Tube Feeding Water Flush 250 ml G-tube UD Qty: 1 0RF Rx Instructions: please flush after any use Claritin-D 12 Hour 5-120 mg Tablet Extended Release 12 Hr 1 tab PO BID PRN (Reason: Congestion) ondansetron 4 mg tablet,disintegrating 4 mg PO Q8H PRN (Reason: nausea and vomiting) 5 Days Qty: 15 0RF Discharge Orders: Discharge Order (Routine); Ordered 08/03/22 Ordered By: Se Hoang/Other Patient Handouts: ED Neuropathy, Peripheral Admission Data Admit Date/Time: 07/23/22 10:22 Attending Provider: Se Hernandez Admit Provider: Barak Vargas Primary Care Provider: Laurel Dougherty Other Providers: Chelsie Cobb ; Cristino Crowder ; Mykel Go ; Massiel Agustin ; [facility] ; [facility] ; [facility] Other Interventions: Discharge Summary Assessment (RN) Last Done: 08/03/22 17:05 Coding Level of Care Code D/C DAY MANAGEMENT >30 MINS Diagnoses Low back pain M54.50 Weakness R53.1 Dysphagia R13.10 Pancytopenia D61.818 Malignant neoplasm of central portion of left breast in female, estrogen receptor negative C50.112; Z17.1 Former smoker Z87.891 PEG (percutaneous endoscopic gastrostomy) status Z93.1 Chronic obstructive pulmonary disease J44.9 Elevated AST (SGOT) R74.01 Severe protein-calorie malnutrition E43 Hypertension I10 Hypertension type: primary hypertension Hyponatremia E87.1 Constipation K59.00
[2022-08-06 09:52] LABS: Acetylcholine Recep Modulating 10; Acetylcholine Recept Blocking <15 (<15); Aldolase 4.5 U/L (< OR = 8.1); Anti Nuclear Antibody Screen POSITIVE (NEGATIVE); Anti-SS-A <1.0 NEG AI (<1.0 NEG); Anti-SS-B <1.0 NEG AI (<1.0 NEG); Anti-Striated Muscle NEGATIVE (NEGATIVE); JO 1 Antibody <1.0 NEG AI (<1.0 NEG); Receptor Binding Ab <0.30 nmol/L; Voltage-gated Ca Channel Ab <30 pmol/L (<30)
[2022-08-07 08:32] LABS: ANA Pattern Nuclear, Speckled
== END 2022-08-03 17:37 | disposition home health service (06) | DRG 551 ==
LOC: INTOOBSV 10:22 → SUATTDRO 11:29 → 3W 11:29 → SUATTDRO 07-23 10:22

== ENCOUNTER 2022-09-02 19:24 | Inpatient (IN) ==
[2022-09-02] MEDS ORDERED: SODIUM CHLORIDE 0.9% 500 ML IV STA (19:32)
--- NOTE | 2022-09-02 19:34 | Emergency Department Note ---
Impression & Plan Hypoxia ADMIT ED Provider Note HPI: The patient is a 71-year-old female with history of breast cancer, status post left-sided mastectomy, finished chemo and radiation therapy this past May. Presents emergency department chief complaint of generalized weakness in the lower extremities causing ambulatory dysfunction, patient states that today she also became short of breath. Patient arrives via EMS, per report, patient had oxygen saturations in the low 80s and was therefore put on nasal cannula oxygen with good improvement. On arrival to the ED the patient is on nasal cannula oxygen, she is cachectic appearing, she is frail, she is however alert and hemod ynamically stable. Patient denies any focal complaint of pain but states that she is felt very generally weak over the past day and she has had ambulatory difficulty because of this. She states that she became short of breath today. ROS: -Pulmonary: Dyspnea -General: Generalized weakness, *10 point review systems was conducted and is otherwise negative unless stated above *Outpatient medications and allergy history reviewed PE: General: Alert cachectic appearing, frail HEENT: Normocephalic, trachea midline Eyes: Extraocular eye movement is intact, no scleral erythema Pulmonary: Slightly diminished bilaterally with rhonchi, no wheezing Cardio: Regular rate and rhythm GI: Abdomen is soft, nontender : No suprapubic tenderness MSK: No evidence of trauma or malformation of the extremities, no edema Skin: No evidence of rash Neuro: Alert, no focal deficits Psychiatric: Cooperative lodge officer: - An order was placed for continuous cardiac monitoring - Patient was noted to be in sinus rhythm with a rate of 95 EKG: Rate: 97 Rhythm: Normal sinus rhythm Intervals: Within normal limits ST changes: No ST elevation Time: 1730 CT HEAD: No acute intracranial hemorrhage. No midline shift or mass effect. The territorial [place]-white matter differentiation is maintained throughout. Age-related cerebral volume loss. Periventricular and subcortical white matter hypoattenuation, consistent with chronic microangiopathy. Radiologist: Patel Ding MD Interventions provided in ED: -IV Tylenol, IV fluid bolus, IV cefepime, IV azithromycin Medical Decision Making: Patient presented to the emergency department with chief complaint of generalized weakness and shortness of breath, she has no focal deficits on arrival but she is very frail and cachectic appearing. She was hypoxic here in the ED when placed on room air at 80%, she was therefore put back on nasal cannula oxygen at 4 L with good improvement. Chest x-ray shows concern for left lower lobe pneumonia, blood cultures were drawn in the ED, patient is noted to have a significant leukocytosis of greater than 30,000 on her labs, she was treated with cefepime and azithromycin over concern for potential pulmonary source for her infection. Hemoglobin is noted to be 9.0 which is near baseline for her, platelet count of 180. No critical electrolyte abnormalities are noted. On my reassessment the patient is stable on nasal cannula oxygen, plan will be for admission to the hospitalist service for follow-up on blood cultures, IV antibiotics for pneumonia, and further management and likely PT/OT consultation in regards to her ongoing weakness. Patient did complain of a headache while here in the ED additionally, CT imaging of the head was obtained that shows no evidence of any acute intracranial process. Patient was given a dose of IV Tylenol for headache. Patient and her daughter at the bedside are in agreement to the above plan, patient will be admitted to the [facility] Hospitalist service for further c are. * CRITICAL CARE TIME: ( 35 ) minutes -Stabilization of hypoxia with oxygen saturation 88% on room air requiring supplemental oxygen for correction, time spent at the bedside, interpretation of diagnostic studies and arrangement of admission. Diagnosis: 1. Left lower lobe pneumonia, acute 2. Hypoxia, acute 3. Leukocytosis 4. Anemia, chronic, stable Disposition: Admission Terry Lopez DO Emergency Medicine Past Med/Surg History Medical History (Updated 09/02/22 @ 23:14 by Terry Lopez DO) Breast cancer Chronic obstructive pulmonary disease Constipation Dysphagia Elevated AST (SGOT) Former smoker Hypertension Hyponatremia Leg weakness, bilateral Low back pain Malignant neoplasm of central portion of left breast in female, estrogen receptor negative (01/04/22) Pancytopenia Peripheral neuropathy Port-A-Cath in place Severe protein-calorie malnutrition Surgical History History of left mastectomy Hx of tonsillectomy PEG (percutaneous endoscopic gastrostomy) status Family History Mother Hypertension Sister Hypertension Brother Hypertension Father Lung cancer Social History Smoking Status: Former smoker Tobacco Type: Cigarettes Cigarettes Per Day: 3; Second Hand Exposure: No; Hx Alcohol Use: No Hx Substance Use: No Preferred Language: German Communication Ability: Effective Hearing Ability: Normal 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[employer] Required: Yes Beliefs That Will Affect Care: Druze marital status: / Current Living Situation: Family current occupational status: retired How many Children do You have: 1 Feels Safe at Home: Yes Diet Comment: Peg tube feeds, Boost daily; small amounts orally during the past year weight has: decreased > 10 lbs Dental Care, Regularly: Yes Physical Activity Frequency: Does not Exercise Seatbelt Use: always Do you think of yourself as: straight/heterosexual Gender Identity: Female Assistive Devices: Bedside Commode, Glasses and Walker Allergies Allergies Allergy/AdvReac Type Severity Reaction Status Date / Time pistachio nut AdvReac Severe Red face Verified 09/02/22 21:15 and hands ~ Throwing up Home Meds Home Medications Medication Instructions Recorded Confirmed polyethylene glycol 3350 17 17 g PO DAILY PRN Constipation 08/23/22 09/02/22 gram/dose oral powder (Miralax) tramadol 50 mg tablet 50 mg feeding tube Q6H PRN Pain 08/23/22 09/02/22 acetaminophen 325 mg tablet 650 mg feeding tube BID 09/02/22 09/02/22 (Tylenol) duloxetine 30 mg capsule,delayed 30 mg DAILY 09/02/22 09/02/22 release gabapentin 300 mg capsule 300 mg feeding tube TID 09/02/22 09/02/22 lansoprazole 15 mg delayed 15 mg feeding tube DAILY 09/02/22 09/02/22 release,disintegrating tablet levofloxacin 500 mg tablet 500 mg feeding tube QPM 09/02/22 09/02/22 magnesium oxide 400 mg feeding tube BID 09/02/22 09/02/22 ondansetron HCl 8 mg tablet 8 mg feeding tube Q8H PRN 09/02/22 09/02/22 NAUSEA/VOMITING oxycodone 5 mg tablet 5 mg feeding tube .Q4-6HR PRN Pain 09/02/22 09/02/22 Previous Rx's Medication Instructions Recorded albuterol sulfate 90 mcg/actuation 2 inh inhalation QID PRN shortness 08/03/22 aerosol inhaler of breath or wheezing or cough #8.5 grams cyanocobalamin (vitamin B-12) 500 1,000 mcg PEG QAM #30 tabs 08/03/22 mcg tablet nut.tx.impaired digest fxn 0.068 1,000 ml G-tube DAILY@1999 #1,000 08/03/22 gram-1.5 kcal/mL oral liquid mL (Peptamen 1.5) Results & Data (ED) Vital Signs Vital Signs - 24 hr 09/02/22 19:39 09/02/22 19:39 09/02/22 19:51 Temperature 37.7 C H Temperature Source Oral Pulse Rate 101 H Respiratory Rate 15 Blood Pressure 126/69 Blood Pressure Mean 88 Pulse Oximetry 94 96 88 L Oxygen Delivery Method Room Air Room Air Room Air Oxygen Flow Rate Sepsis Recent Fever Within 48 Hours No Sepsis New/Unexplained Change in Mental Status N/A Sepsis Action Taken by Nursing No Action Required 09/02/22 19:52 09/02/22 21:19 09/02/22 21:19 Temperature Temperature Source Pulse Rate Respiratory Rate Blood Pressure Blood Pressure Mean Pulse Oximetry 93 88 L 95 Oxygen Delivery Method Nasal Cannula Nasal Cannula Nasal Cannula Oxygen Flow Rate 2 2 4 Sepsis Recent Fever Within 48 Hours Sepsis New/Unexplained Change in Mental Status Sepsis Action Taken by Nursing Laboratory Data Result diagrams: 09/02/22 19:53 09/02/22 19:53 Lab Results 09/02/22 09/02/22 09/02/22 Range/Units 19:53 19:53 19:53 WBC 38.72 H* (4.8-10.8) K/ul RBC 2.80 L (3.93-5.22) M/uL Hgb 9.0 L (12.0-16.0) g/dl Hct 26.9 L (34.1-44.9) % MCV 96.1 (80.0-100.0) fL MCH 32.1 (25.0-34.0) pg MCHC 33.5 (32.0-36.0) g/dL RDW Std Deviation 51.4 H (36.4-46.3) fL RDW Coeff of Emil 14.8 H (11.5-14.5) % Plt Count 180 (130-400) K/uL MPV 10.5 (9.4-12.3) fL Immature Gran % (Auto) 1.4 % Neut % (Auto) 92.4 % Lymph % (Auto) 2.5 % Dickson % (Auto) 3.5 % Eos % (Auto) 0.0 % Baso % (Auto) 0.2 % Neut # (Auto) 35.73 H (1.4-6.5) K/uL Lymph # (Auto) 0.98 L (1.2-3.4) K/uL Dickson # (Auto) 1.37 H (0.24-0.82) K/uL Eos # (Auto) 0.01 (0-0.50) K/uL Baso # (Auto) 0.09 (0-0.2) K/uL Immature Gran # (Auto) 0.54 H (0.00-0.02) K/uL PT 10.4 (9.0-12.0) Seconds INR 1.0 (0.9-1.1) APTT 28.2 (21.0-31.0) Seconds PTT Ratio 1.0 VBG pH (7.36-7.41) VBG pCO2 (38-50) mmHg VBG pO2 mmHg VBG HCO3 mmol/L VBG O2 Saturation % VBG Base Excess mEq/L Sodium 129 L (136-145) mmol/L Potassium 4.2 (3.5-5.1) mmol/L Chloride 95 L (98-107) mmol/L Carbon Dioxide 27 (21-32) mmol/L Anion Gap 7 (3-11) BUN 48 H (6-23) mg/dl Creatinine 0.79 (0.6-1.2) mg/dl Est Cr Clr Drug Dosing Not Reportable Est GFR ( Amer) 86.1 ml/min Est GFR (Non-Af Amer) 74.3 ml/min BUN/Creatinine Ratio 60.8 H (10-20) Glucose 90 (70-99(Fasting)) mg/dl Calcium 8.2 L (8.5-10.1) mg/dl Total Bilirubin 0.3 (0.2-1.0) mg/dl AST 37 (13-39) U/L ALT 22 (7-52) U/L Alkaline Phosphatase 67 (34-104) U/L Troponin I High Sens 9.8 (0-14) pg/ml Total Protein 6.5 (6.0-8.3) gm/dl Albumin 3.0 L (3.4-5.0) gm/dl Globulin 3.5 (2.5-4.0) gm/dl Albumin/Globulin Ratio 0.9 (0.9-2) Lipase 23 (11-82) U/L SARS-CoV-2 (PCR) (Negative) Influenza Type A (PCR) (Neg) Influenza Type B (PCR) (Neg) RSV (RT-PCR) (Neg) 09/02/22 09/02/22 Range/Units 19:53 21:20 WBC (4.8-10.8) K/ul RBC (3.93-5.22) M/uL Hgb (12.0-16.0) g/dl Hct (34.1-44.9) % MCV (80.0-100.0) fL MCH (25.0-34.0) pg MCHC (32.0-36.0) g/dL RDW Std Deviation (36.4-46.3) fL RDW Coeff of Emil (11.5-14.5) % Plt Count (130-400) K/uL MPV (9.4-12.3) fL Immature Gran % (Auto) % Neut % (Auto) % Lymph % (Auto) % Dickson % (Auto) % Eos % (Auto) % Baso % (Auto) % Neut # (Auto) (1.4-6.5) K/uL Lymph # (Auto) (1.2-3.4) K/uL Dickson # (Auto) (0.24-0.82) K/uL Eos # (Auto) (0-0.50) K/uL Baso # (Auto) (0-0.2) K/uL Immature Gran # (Auto) (0.00-0.02) K/uL PT (9.0-12.0) Seconds INR (0.9-1.1) APTT (21.0-31.0) Seconds PTT Ratio VBG pH 7.39 (7.36-7.41) VBG pCO2 45 (38-50) mmHg VBG pO2 42 mmHg VBG HCO3 27 mmol/L VBG O2 Saturation 74.0 % VBG Base Excess 1.7 mEq/L Sodium (136-145) mmol/L Potassium (3.5-5.1) mmol/L Chloride (98-107) mmol/L Carbon Dioxide (21-32) mmol/L Anion Gap (3-11) BUN (6-23) mg/dl Creatinine (0.6-1.2) mg/dl Est Cr Clr Drug Dosing Est GFR ( Amer) ml/min Est GFR (Non-Af Amer) ml/min BUN/Creatinine Ratio (10-20) Glucose (70-99(Fasting)) mg/dl Calcium (8.5-10.1) mg/dl Total Bilirubin (0.2-1.0) mg/dl AST (13-39) U/L ALT (7-52) U/L Alkaline Phosphatase (34-104) U/L Troponin I High Sens (0-14) pg/ml Total Protein (6.0-8.3) gm/dl Albumin (3.4-5.0) gm/dl Globulin (2.5-4.0) gm/dl Albumin/Globulin Ratio (0.9-2) Lipase (11-82) U/L SARS-CoV-2 (PCR) NEGATIVE (Negative) Influenza Type A (PCR) Negative (Neg) Influenza Type B (PCR) Negative (Neg) RSV (RT-PCR) Negative (Neg) Administered Medications Discontinued Medications Acetaminophen (Acetaminophen 1000 Mg/100 Ml Iv) Confirm Administered Dose 1,000 mg IV .STK-MED ONE Stop: 09/02/22 21:55 Last Admin: 09/02/22 21:59 Dose: 1,000 mg Documented By: ML Sodium Chloride (Nss) 500 mls @ 999 mls/hr IV .Q31M STA Stop: 09/02/22 20:02 Last Infusion: 09/02/22 20:30 Dose: 0 mls/hr Documented By: Admin: 09/02/22 19:54 Dose: 999 mls/hr Documented By: ML Cefepime HCl (Maxipime) 2,000 mg in 20 mls @ 5 mls/min IV NOW STA; Protocol Stop: 09/02/22 21:10 Last Admin: 09/02/22 21:33 Dose: 5 mls/min Documented By: ML Azithromycin 500 mg/ Dextrose 255 mls @ 125 mls/hr IV ONE ONE Stop: 09/02/22 23:09 Last Admin: 09/02/22 22:27 Dose: 125 mls/hr Documented By: ML Discharge Plan Visit Data Chief Complaint: Illness Stated Complaint: LOST COMPLETE L.E. MOBILITY ED Provider: Terry Lopez Discharge Problem: Hypoxia Forms Stand Alone Forms: My [facility] Prescriptions Prescriptions: No Action tramadol 50 mg tablet 50 mg feeding tube Q6H PRN (Reason: Pain) polyethylene glycol 3350 [Miralax] 17 gram/dose powder 17 g PO DAILY PRN (Reason: Constipation) Peptamen 1.5 0.068 gram- 1.5 kcal/mL Liquid 1,000 ml G-tube DAILY@1999 Qty: 1000 0RF Rx Instructions: RUNS 12-13 HOURS. cyanocobalamin (vitamin B-12) 500 mcg Tablet 1,000 mcg PEG QAM Qty: 30 2RF Rx Instructions: purchase [id number] albuterol sulfate 90 mcg/actuation HFA aerosol inhaler 2 inh inhalation QID PRN (Reason: shortness of breath or wheezing or cough) Qty: 8.5 1RF acetaminophen [Tylenol] 325 mg Tablet 650 mg feeding tube BID ondansetron HCl 8 mg tablet 8 mg feeding tube Q8H PRN (Reason: NAUSEA/VOMITING) gabapentin 300 mg capsule 300 mg feeding tube TID levofloxacin 500 mg tablet 500 mg feeding tube QPM Rx Instructions: STARTED 08/27/22 FOR 7 DAYS. NEEDS LAST DOSE OF COURSE. oxycodone 5 mg tablet 5 mg feeding tube .Q4-6HR PRN (Reason: Pain) lansoprazole 15 mg Tablet,Disintegrat, Delay Rel 15 mg feeding tube DAILY duloxetine 30 mg capsule,delayed release(DR/EC) 30 mg DAILY Rx Instructions: VIA FEEDING TUBE. magnesium oxide 400 mg magnesium tablet 400 mg feeding tube BID Referrals Referrals: Laurel Dougherty MD [Primary Care Provider] -
[2022-09-02 20:09] LABS: Base Excess VBG 1.7 mEq/L; HCO3 VBG 27 mmol/L; PCO2 VBG 45 mmHg (38-50); PO2 VBG 42 mmHg; pH VBG 7.39 (7.36-7.41)
[2022-09-02 20:23] LABS: Partial Thromboplastin Time 28.2 Seconds (21.0-31.0); Prothrombin Time 10.4 Seconds (9.0-12.0)
[2022-09-02 20:28] LABS: Hematocrit (blood only) 26.9 % (34.1-44.9); Mean Corpuscular Hemoglobin 32.1 pg (25.0-34.0); Mean Corpuscular Hgb Conc 33.5 g/dL (32.0-36.0); Mean Corpuscular Volume 96.1 fL (80.0-100.0); Mean Platelet Volume 10.5 fL (9.4-12.3); Platelet Count 180 K/uL (130-400); RDW Coefficient of Variation 14.8 % (11.5-14.5); RDW Standard Deviation 51.4 fL (36.4-46.3); White Blood Count 38.72 K/ul (4.8-10.8)
[2022-09-02 20:31] LABS: Alanine Aminotransferase 22 U/L (7-52); Albumin Globulin Ratio 0.9 (0.9-2); Alkaline Phosphatase 67 U/L (34-104); Anion Gap 7 (3-11); Aspartate Aminotransferase 37 U/L (13-39); BUN Creatinine Ratio 60.8 (10-20); Bilirubin,Total 0.3 mg/dl (0.2-1.0); Blood Urea Nitrogen 48 mg/dl (6-23); Calcium 8.2 mg/dl (8.5-10.1); Carbon Dioxide 27 mmol/L (21-32); Chloride 95 mmol/L (98-107); Est GFR (African American) 86.1 ml/min; Est GFR (Non-African American) 74.3 ml/min; Globulin 3.5 gm/dl (2.5-4.0); Glucose 90 mg/dl (70-99(Fasting)); Lipase 23 U/L (11-82); Potassium 4.2 mmol/L (3.5-5.1); Sodium 129 mmol/L (136-145); Total Protein 6.5 gm/dl (6.0-8.3)
[2022-09-02 20:37] LABS: Troponin I High Sensitivity 9.8 pg/ml (0-14)
[2022-09-02 20:50] LABS: Basophils # (auto) 0.09 K/uL (0-0.2); Basophils % (auto) 0.2 %; Eosinophils # (auto) 0.01 K/uL (0-0.50); Immature Granulocytes # (auto) 0.54 K/uL (0.00-0.02); Immature Granulocytes % (auto) 1.4 %; Lymphocytes # (auto) 0.98 K/uL (1.2-3.4); Lymphocytes % (auto) 2.5 %; Monocytes # (auto) 1.37 K/uL (0.24-0.82); Monocytes % (auto) 3.5 %; Neutrophils # (auto) 35.73 K/uL (1.4-6.5); Neutrophils % (auto) 92.4 %
[2022-09-02] MEDS ORDERED: CEFEPIME 2,000 MG/20 ML VIAL IV STA (21:07)
[2022-09-02] MEDS ORDERED: AZITHROMYCIN 500 MG in DEXTROSE 5% 250 ML IV ONE (21:07)
[2022-09-02] MEDS ORDERED: ACETAMINOPHEN 1000 MG/100 ML IV IV ONE (21:54)
--- NOTE | 2022-09-02 22:08 | History & Physical Report ---
Date of Service September 02, 2022 Assessment & Plan (1) Acute respiratory failure with hypoxia: (2) Hypertension: (3) Vitamin B12 deficiency: (4) CKD (chronic kidney disease) stage 3, GFR 30-59 ml/min: (5) Breast cancer: Plan Acute respiratory failure with hypoxia/left lower lobe pneumonia- COVID-19 RSV and influenza testing pending She is already received cefepime 2 g IV and azithromycin 5 mg IV from the ED Add vancomycin IV due to hospital associated process Duonebs every 4 hours while awake and every 2 hours when necessary. Methylprednisolone 40 mg IV every 8 hours Nasal cannula oxygen, titrate to keep pulse ox 94-95% Apoorva B12 deficiency- Continue supplementation GERD/upper GI bleed history- Continue lansoprazole Chronic pain syndrome- Secondary to metastatic breast cancer Acetaminophen 650 mg per tube every 6 hours as needed mild pain or fever Oxycodone 5 mg per feeding tube every 4 hours as needed moderate pain Peripheral neuropathy- Continue gabapentin General nutrition- Continue Peptamen 1.5 tube feeds over 12 to 13 hours History of Present Illness Chief Complaint: The patient presents to the emergency department with acutely worsening shortness of breath and temperature that began today, but has been feeling more fatigued and more short of breath over the past week, along with generalized weakness to bilateral lower extremities causing ambulatory dysfunction Primary Care Provider: Laurel Dougherty MD The patient is a 71-year-old female with a past medical history including hypertension, B12 deficiency, SUE positive, Port-A-Cath placement, hyponatremia, CKD stage III, upper GI bleed, anemia, antineoplastic chemotherapy induced pancytopenia, metastatic breast cancer, and peripheral neuropathy. She has been having more more issues with ambulatory dysfunction since her last hospital admission from 07/20-08/03/2022. She has been a.m. unable to get can help that her daughter feels that she needs due to unavailability of resources. Today she became more short of breath, fatigue, and more difficulties ambulatory dysfunction, and had a pulse ox recorded in the low 80s in the outpatient setting Allergies Allergy/AdvReac Type Severity Reaction Status Date / Time pistachio nut AdvReac Severe Red face Verified 09/02/22 21:15 and hands ~ Throwing up Home Medications Medication Instructions Recorded Confirmed Type albuterol sulfate 90 mcg/actuation 2 inh inhalation QID PRN shortness 08/03/22 09/02/22 Rx aerosol inhaler of breath or wheezing or cough #8.5 grams cyanocobalamin (vitamin B-12) 500 1,000 mcg PEG QAM #30 tabs 08/03/22 09/02/22 Rx mcg tablet nut.tx.impaired digest fxn 0.068 1,000 ml G-tube DAILY@2000 #1,000 08/03/22 09/02/22 Rx gram-1.5 kcal/mL oral liquid mL (Peptamen 1.5) polyethylene glycol 3350 17 17 g PO DAILY PRN Constipation 08/23/22 09/02/22 History gram/dose oral powder (Miralax) tramadol 50 mg tablet 50 mg feeding tube Q6H PRN Pain 08/23/22 09/02/22 History acetaminophen 325 mg tablet 650 mg feeding tube BID 09/02/22 09/02/22 History (Tylenol) duloxetine 30 mg capsule,delayed 30 mg DAILY 09/02/22 09/02/22 History release gabapentin 300 mg capsule 300 mg feeding tube TID 09/02/22 09/02/22 History lansoprazole 15 mg delayed 15 mg feeding tube DAILY 09/02/22 09/02/22 History release,disintegrating tablet levofloxacin 500 mg tablet 500 mg feeding tube QPM 09/02/22 09/02/22 History magnesium oxide 400 mg feeding tube BID 09/02/22 09/02/22 History ondansetron HCl 8 mg tablet 8 mg feeding tube Q8H PRN 09/02/22 09/02/22 History NAUSEA/VOMITING oxycodone 5 mg tablet 5 mg feeding tube .Q4-6HR PRN Pain 09/02/22 09/02/22 History Past Med/Surg History Medical History (Updated 09/02/22 @ 22:24 by Feliberto Kilpatrick MD) Breast cancer Chronic obstructive pulmonary disease Constipation Dysphagia Elevated AST (SGOT) Former smoker Hypertension Hyponatremia Leg weakness, bilateral Low back pain Malignant neoplasm of central portion of left breast in female, estrogen receptor negative (01/04/22) Pancytopenia Peripheral neuropathy Port-A-Cath in place Severe protein-calorie malnutrition Surgical History History of left mastectomy Hx of tonsillectomy PEG (percutaneous endoscopic gastrostomy) status Family History Mother Hypertension Sister Hypertension Brother Hypertension Father Lung cancer Social History Smoking Status: Former smoker Tobacco Type: Cigarettes Cigarettes Per Day: 3; Second Hand Exposure: No; Hx Alcohol Use: No Hx Substance Use: No Preferred Language: [place]ian Communication Ability: Effective Hearing Ability: Normal 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 Beliefs That Will Affect Care: Advent marital status: / Current Living Situation: Family current occupational status: retired How many Children do You have: 1 Feels Safe at Home: Yes Diet Comment: Peg tube feeds, Boost daily; small amounts orally during the past year weight has: decreased > 10 lbs Dental Care, Regularly: Yes Physical Activity Frequency: Does not Exercise Seatbelt Use: always Do you think of yourself as: straight/heterosexual Gender Identity: Female Assistive Devices: Bedside Commode, Glasses and Walker Review of Systems Review of Systems: The patient denies chest pain, palpitations, lower extremity swelling, sore throat, fevers, chills, sweats, nausea, vomiting, diarrhea , constipation, abdominal pain, pelvic pain, blood in urine or stool, dysuria, urinary frequency or urgency, memory loss, loss of consciousness, rash, abnormal bruising or bleeding, Focal weakness, numbness or tingling in arms or legs, back or neck pain, or night sweats. The review of systems is otherwise negative other than for that already noted above, and at least 10 systems have been reviewed. Physical Exam Physical Exam: The patient is awake, alert and oriented 3, looks emaciated, normocephalic and atraumatic, lying in bed and in no acute distress. HEENT--PERRL, EOMI, mucous membranes and oropharynx dry. Neck--supple. No JVD. No bruits. Thyroid normal, trachea midline, no adenopathy. Heart--normal S1 and S2. No murmurs, rubs or gallops. Lungs--decreased breath sounds at the bases, left worse than right. No respiratory distress, no accessory muscle use. Abdomen--normal bowel sounds and soft. Nontender. Nondistended, no hernias or masses, no organomegaly. Extremities--no cyanosis or clubbing. No edema. Dermatologic--normal skin turgor, normal color, no abnormal lymph nodes, no rash. Neurologic--cranial nerves II through XII grossly intact. Rheumatologic--normal range of motion. Psychiatric--normal affect. Results & Data Results & Data ([facility]) Vital Signs (Past 12 Hours) Vital Signs Temp Pulse Resp BP Pulse Ox O2 Del Method O2 Flow Rate 09/02/22 21:19 95 Nasal Cannula 4 09/02/22 21:19 88 L Nasal Cannula 2 09/02/22 19:52 93 Nasal Cannula 2 09/02/22 19:51 88 L Room Air 09/02/22 19:39 96 Room Air 09/02/22 19:39 37.7 C H 101 H 15 126/69 94 Room Air Laboratory Results Laboratory Results WBC 38.72 K/ul (4.8-10.8) H* 09/02/22 19:53 RBC 2.80 M/uL (3.93-5.22) L 09/02/22 19:53 Hgb 9.0 g/dl (12.0-16.0) L 09/02/22 19:53 Hct 26.9 % (34.1-44.9) L 09/02/22 19:53 MCV 96.1 fL (80.0-100.0) 09/02/22 19:53 MCH 32.1 pg (25.0-34.0) 09/02/22 19:53 MCHC 33.5 g/dL (32.0-36.0) 09/02/22 19:53 RDW Std Deviation 51.4 fL (36.4-46.3) H 09/02/22 19:53 RDW Coeff of Emil 14.8 % (11.5-14.5) H 09/02/22 19:53 Plt Count 180 K/uL (130-400) 09/02/22 19:53 MPV 10.5 fL (9.4-12.3) 09/02/22 19:53 Immature Gran % (Auto) 1.4 % 09/02/22 19:53 Neut % (Auto) 92.4 % 09/02/22 19:53 Lymph % (Auto) 2.5 % 09/02/22 19:53 Fleming % (Auto) 3.5 % 09/02/22 19:53 Eos % (Auto) 0.0 % 09/02/22 19:53 Baso % (Auto) 0.2 % 09/02/22 19:53 Neut # (Auto) 35.73 K/uL (1.4-6.5) H 09/02/22 19:53 Lymph # (Auto) 0.98 K/uL (1.2-3.4) L 09/02/22 19:53 Fleming # (Auto) 1.37 K/uL (0.24-0.82) H 09/02/22 19:53 Eos # (Auto) 0.01 K/uL (0-0.50) 09/02/22 19:53 Baso # (Auto) 0.09 K/uL (0-0.2) 09/02/22 19:53 Immature Gran # (Auto) 0.54 K/uL (0.00-0.02) H 09/02/22 19:53 PT 10.4 Seconds (9.0-12.0) 09/02/22 19:53 INR 1.0 (0.9-1.1) 09/02/22 19:53 APTT 28.2 Seconds (21.0-31.0) 09/02/22 19:53 PTT Ratio 1.0 09/02/22 19:53 VBG pH 7.39 (7.36-7.41) 09/02/22 19:53 VBG pCO2 45 mmHg (38-50) 09/02/22 19:53 VBG pO2 42 mmHg 09/02/22 19:53 VBG HCO3 27 mmol/L 09/02/22 19:53 VBG O2 Saturation 74.0 % 09/02/22 19:53 VBG Base Excess 1.7 mEq/L 09/02/22 19:53 Sodium 129 mmol/L (136-145) L 09/02/22 19:53 Potassium 4.2 mmol/L (3.5-5.1) 09/02/22 19:53 Chloride 95 mmol/L (98-107) L 09/02/22 19:53 Carbon Dioxide 27 mmol/L (21-32) 09/02/22 19:53 Anion Gap 7 (3-11) 09/02/22 19:53 BUN 48 mg/dl (6-23) H 09/02/22 19:53 Creatinine 0.79 mg/dl (0.6-1.2) 09/02/22 19:53 Est Cr Clr Drug Dosing Not Reportable 09/02/22 19:53 Est GFR ( Amer) 86.1 ml/min 09/02/22 19:53 Est GFR (Non-Af Amer) 74.3 ml/min 09/02/22 19:53 BUN/Creatinine Ratio 60.8 (10-20) H 09/02/22 19:53 Glucose 90 mg/dl (70-99(Fasting)) 09/02/22 19:53 Calcium 8.2 mg/dl (8.5-10.1) L 09/02/22 19:53 Total Bilirubin 0.3 mg/dl (0.2-1.0) 09/02/22 19:53 AST 37 U/L (13-39) 09/02/22 19:53 ALT 22 U/L (7-52) 09/02/22 19:53 Alkaline Phosphatase 67 U/L (34-104) 09/02/22 19:53 Troponin I High Sens 9.8 pg/ml (0-14) 09/02/22 19:53 Total Protein 6.5 gm/dl (6.0-8.3) 09/02/22 19:53 Albumin 3.0 gm/dl (3.4-5.0) L 09/02/22 19:53 Globulin 3.5 gm/dl (2.5-4.0) 09/02/22 19:53 Albumin/Globulin Ratio 0.9 (0.9-2) 09/02/22 19:53 Lipase 23 U/L (11-82) 09/02/22 19:53 Code Status & VTE Plan Code Status DNR/DNI VTE Prophylaxis Plan VTE Prophylaxis will be ordered: Yes (1) Breast cancer Breast location: unspecified site of breast Estrogen receptor status: unspecified Laterality: left Patient sex: female Qualified Code(s): C50.912 - Malignant neoplasm of unspecified site of left female breast (2) Hypertension Hypertension type: primary hypertension Qualified Code(s): I10 - Essential (primary) hypertension
--- NOTE | 2022-09-02 22:27 | Billing Data ---
Date of Service September 02, 2022 Coding Level of Care Code 79107 Initial Inpt Care Lvl 3
[2022-09-02 22:43] LABS: Influenza A virus by PCR Negative (Neg); Influenza B virus by PCR Negative (Neg); RSV by PCR Negative (Neg); SARS CoV2 RNA(COVID-19) Ceph NEGATIVE (Negative)
[2022-09-03] MEDS ORDERED: VANCOMYCIN CONSULT ACTIVE PRN (01:35)
[2022-09-03] MEDS ORDERED: ALBUTEROL HFA 8 GM INHALER INH PRN (01:35)
[2022-09-03] MEDS ORDERED: Nursing to Pharmacy Communication SCH (01:45)
[2022-09-03] MEDS ORDERED: VANCOMYCIN HCL 1,000 MG in SODIUM CHLORIDE 0.9% 250 ML IV ONE (02:30)
[2022-09-03] MEDS: ALBUT/IPRATROP 3MG/0.5MG NEB 3 ML VIAL NEB SCH ×4 (07:39→20:20)
[2022-09-03 07:45] LABS: Hematocrit (blood only) 25.1 % (34.1-44.9); Hemoglobin 8.2 g/dl (12.0-16.0); Mean Corpuscular Hemoglobin 31.4 pg (25.0-34.0); Mean Corpuscular Hgb Conc 32.7 g/dL (32.0-36.0); Mean Corpuscular Volume 96.2 fL (80.0-100.0); Mean Platelet Volume 10.9 fL (9.4-12.3); Platelet Count 142 K/uL (130-400); RDW Coefficient of Variation 14.8 % (11.5-14.5); RDW Standard Deviation 51.5 fL (36.4-46.3); Red Blood Count 2.61 M/uL (3.93-5.22); White Blood Count 41.19 K/ul (4.8-10.8)
--- NOTE | 2022-09-03 07:55 | CT Scan Report ---
CT OF THE HEAD WITHOUT CONTRAST CLINICAL HISTORY: Dizzy. COMPARISON STUDY: PET/CT June 06, 2022. CT DOSE: 537.48 mGy.cm TECHNIQUE: Helical axial images of the head were obtained without IV contrast. Automated exposure con trol was utilized for the study. A dose lowering technique was utilized adhering to the principles o f ALARA. FINDINGS: No acute intracranial hemorrhage, midline shift or mass effect is present. Numerous white m atter hypodensities favor small vessel disease. The ventricular system is unremarkable. The basal cis terns are patent. No extra-axial collections are present. There are no findings to suggest acute dura l sinus thrombosis or acute territorial infarct. No significant calvarial abnormalities are present. Minimal secretions within the sphenoid sinuses are present. IMPRESSION: No acute intracranial findings. ACT 112: Negative or not required by law. Electronically signed by: Regino Hayden M.D. 09/03/2022 7:53 AM
--- NOTE | 2022-09-03 07:58 | XRay Report ---
XR chest 1V portable CLINICAL HISTORY: Chest pain, nonspecific COMPARISON STUDY: Chest radiograph July 18, 2022. PET/CT June 06, 2022. FINDINGS: Right internal jugular [id number] is in place. There is no pneumothorax. A small left pl eural effusion is noted. Moderate left basilar airspace opacity is present. Underlying emphysema is b janeth depicted on prior PET/CT. Cardiac size is normal. Mediastinal contours are normal. Mild interst itial thickening within the left lower lung is present. IMPRESSION: Small left pleural effusion with left basilar opacity suggestive of pneumonia. Radiograp hic follow-up to ensure resolution is recommended. ACT 112: Negative or not required by law. Electronically signed by: Regino Hayden M.D. 09/03/2022 7:56 AM
[2022-09-03 08:06] LABS: Basophils # (auto) 0.09 K/uL (0-0.2); Basophils % (auto) 0.2 %; Immature Granulocytes # (auto) 1.35 K/uL (0.00-0.02); Immature Granulocytes % (auto) 3.3 %; Lymphocytes # (auto) 0.62 K/uL (1.2-3.4); Lymphocytes % (auto) 1.5 %; Monocytes # (auto) 0.71 K/uL (0.24-0.82); Monocytes % (auto) 1.7 %; Neutrophils # (auto) 38.42 K/uL (1.4-6.5); Neutrophils % (auto) 93.3 %
[2022-09-03 08:13] LABS: Albumin Globulin Ratio 0.9 (0.9-2); Albumin Level 2.7 gm/dl (3.4-5.0); Bilirubin,Total 0.3 mg/dl (0.2-1.0); Calcium 7.8 mg/dl (8.5-10.1); Creatinine Clr Calc Pharmacy 53.7 ml/min; Est GFR (African American) 88.8 ml/min; Est GFR (Non-African American) 76.6 ml/min; Globulin 3.1 gm/dl (2.5-4.0); Potassium 4.2 mmol/L (3.5-5.1); Total Protein 5.8 gm/dl (6.0-8.3)
[2022-09-03] MEDS: ACETAMINOPHEN SUSP 325 MG/10.15 ML UDC PEG SCH ×2 (09:07→20:31)
[2022-09-03] MEDS: LANSOPRAZOLE 15 MG SOLTAB PEG SCH (09:07)
[2022-09-03] MEDS: methylPREDNISolone 40 MG in SYRINGE 0 ML IV SCH ×2 (09:07→16:31)
[2022-09-03] MEDS: CEFEPIME 2,000 MG in SYRINGE 0 ML IV SCH ×2 (09:08→20:29)
[2022-09-03] MEDS: CYANOCOBALAMIN (B-12) 500 MCG TABLET PEG SCH (09:08)
[2022-09-03] MEDS: DULoxetine HCL 30 MG CAP PO SCH (09:08)
[2022-09-03] MEDS: GABAPENTIN 250 MG/5 ML 470 ML BTL PEG SCH ×3 (09:08→20:31)
[2022-09-03] MEDS: MAGNESIUM OXIDE 400 MG TAB PEG SCH ×2 (09:08→20:24)
--- NOTE | 2022-09-03 09:15 | Electrocardiogram Report ---
Test Reason : Blood Pressure : / mmHG Vent. 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
[2022-09-03] MEDS: TUBE FEEDING WATER FLUSH NG SCH ×2 (11:06→21:07)
[2022-09-03] MEDS: [UNRECOGNIZED DRUG - REMARK] SCH (11:06)
[2022-09-03] MEDS: VANCOMYCIN HCL 1,000 MG in SODIUM CHLORIDE 0.9% 250 ML IV SCH (12:33)
--- NOTE | 2022-09-03 13:17 | Pharmacy Report ---
Pharmacy PK ABX Note - Date of Service September 03, 2022 - Assessment and Plan Assessment * Ms Benson is a 71 year old F receiving vancomycin/cefepime for treatment of PNA. * Pertinent microbiologic data includes: MRSA Nasal Swab pending, blood cultures pending * Significant PMH includes: metastatic breast CA (completed chemo/radiation in May), CKD III, A-port in place, hospital admission 07/20-08/03 * WBC 39 --> 41, temp 37.7 C, pt requiring oxygen (4L), flu/COVID/RSV negative * Pt was initiated on broad-spectrum abx on admission. Plan Vancomycin * Loading dose: 1000 mg IV x 1 * Maintenance dose: 1000 mg IV every 18 hours * Regimen is predicted to achieve target AUC/AIDAN of 400-600 mg/L.hr * Vanc level ordered for: 09/05 @ ~1200 Cefepime 2gm IV q12h, appropriately dosed for renal function Pharmacy will continue to follow and will adjust dose/frequency as necessary. Thank you. Pharmacy has transitioned to AUC monitoring for vancomycin. AUC/AIDAN is the preferred PK/PD target and is associated with decreased risk of nephrotoxicity compared to traditional trough targets.
--- NOTE | 2022-09-03 16:18 | Hospitalist Progress Note ---
Date of Service September 03, 2022 Assessment & Plan (1) Leukocytosis: Plan: WBC up to 41 without known source of infection apart from possible pneumonia. - Ordered UA - Monitor cultures - MRSA swab for pneumonia. (2) Weakness: Plan: Intense proximal muscle weakness which has gotten worse over the last 3 months. Many labs sent which have not truly pinpointed a cause though SUE is positive. - Discussed with rheumatology on 09/03 - Ordered aldolase, CK, ESR, CRP, and LDH. Anti-SRP Ab ordered. - Considering MRI of thighs to see if edema is present (3) Acute respiratory failure with hypoxia: Plan: Initially presented with hypoxemia, now back on room air. - Supplement O2 as needed (4) Hypertension: Plan: BP presently on the low side at 115/60. - Monitor; not on home meds (5) Vitamin B12 deficiency: Plan: Noted on prior admission. - Continue supplement (6) Breast cancer: Plan: Hx of Stage III breast cancer. Now finished with chemoradiation and mastectomy. [facility]. - Secondary to metastatic breast cancer For pain control, continue acetaminophen & oxycodone Admission and Anticipated Discharge Date Admission Date: September 02, 2022 Subjective Doing well today. No major focal issues. No cellulitis area, but does have a rash on the back of her hands. Physical Exam Constitutional: WD/WN, vitals as above Eyes: EOM intact bilaterally; no conjunctival abnormality ENMT: external ear and nose normal, oropharynx normal Neck: trachea midline, no thyromegaly normal visual inspection Respiratory: normal respiratory effort, lungs clear to auscultation no resp iratory distress Cardiovascular: RRR, no murmur, no edema Gastrointestinal (Abdomen): Inspection/Auscultation: abdomen normal to inspection; abdomen not distended Musculoskeletal: Proximal muscle weakness Skin: Erythema on backs of hands and face Neurologic: moves all extremities and awake Psychiatric: Orientation: alert, oriented to person and cooperative Results & Data Results & Data ([facility]) Vital Signs (Past 12 Hours) Vital Signs Temp Pulse Pulse Resp BP BP Pulse Ox 09/03/22 15:38 88 16 97 09/03/22 15:06 97 H 09/03/22 12:48 37.0 C 91 H 16 105/68 96 09/03/22 11:35 36.8 C 88 18 94/54 L 95 09/03/22 11:16 89 16 94 12/12/22 09:10 09/03/22 08:11 37.1 C 94 H 16 101/56 L 93 09/03/22 07:40 93 H 18 93 09/03/22 07:26 98 H O2 Del Method O2 Flow Rate 09/03/22 15:38 Nasal Cannula 4 09/03/22 15:06 09/03/22 12:48 Nasal Cannula 4 09/03/22 11:35 Room Air 4 09/03/22 11:16 Nasal Cannula 4 09/03/22 09:10 Nasal Cannula 4 09/03/22 08:11 Nasal Cannula 4.5 09/03/22 07:40 Nasal Cannula 4.5 09/03/22 07:26 PG Care Time/CCT Total # of Minutes Spent Total Time Spent with Patient: Total time spent is greater than 50% in coordination of care (as documented) at patient's floor/unit and/or counseling patient: Coding Level of Care Code 50448 Subseq Hosp Care Lvl 3 Diagnoses Leukocytosis D72.829 Weakness R53.1 Acute respiratory failure with hypoxia J96.01 Hypertension I10 Hypertension type: primary hypertension Vitamin B12 deficiency E53.8 Breast cancer C50.912 Breast location: unspecified site of breast Estrogen receptor status: unspecified Patient sex: female Laterality: left (1) Hypertension Hypertension type: primary hypertension Qualified Code(s): I10 - Essential (primary) hypertension (2) Breast cancer Breast location: unspecified site of breast Estrogen receptor status: unspecified Patient sex: female Laterality: left Qualified Code(s): C50.912 - Malignant neoplasm of unspecified site of left female breast
[2022-09-03 17:11] LABS: C Reactive Protein 25.33 mg/dl (0-0.5)
[2022-09-03] MEDS ORDERED: PEPTAMEN 1.5 CAL 1,000 ML BAG GT SCH (20:00)
[2022-09-03] MEDS: PEPTAMEN 1.5 CAL 1,000 ML BAG GT SCH (22:27)
[2022-09-04] MEDS ORDERED: MELATONIN 3 MG TAB PO PRN (00:09)
[2022-09-04 00:34] LABS: Appearance Urine Clear (Clear); Bacteria Urine Automated Negative (Negative); Bilirubin Urine Negative (Negative); Blood Urine Negative (Negative); Color Urine Yellow; Glucose Urine UA Negative (Negative); Ketones Urine Negative (Negative); Leukocyte Esterase Urine Negative (Negative); Nitrite Urine Negative (Negative); Protein Urine 1+ (Negative); RBC Urine Automated 0-4 /hpf (0-4); Specific Gravity Urine 1.022 (1.000-1.030); Urobilinogen Urine Negative (Negative); pH Urine 5.5 (4.5-7.5)
[2022-09-04] MEDS: methylPREDNISolone 40 MG in SYRINGE 0 ML IV SCH ×2 (00:48→09:12)
[2022-09-04] MEDS: VANCOMYCIN HCL 1,000 MG in SODIUM CHLORIDE 0.9% 250 ML IV SCH (06:09)
[2022-09-04 06:40] LABS: Hematocrit (blood only) 22.2 % (34.1-44.9); Hemoglobin 7.3 g/dl (12.0-16.0); Mean Corpuscular Hemoglobin 32.3 pg (25.0-34.0); Mean Corpuscular Hgb Conc 32.9 g/dL (32.0-36.0); Mean Corpuscular Volume 98.2 fL (80.0-100.0); Mean Platelet Volume 10.1 fL (9.4-12.3); Platelet Count 160 K/uL (130-400); RDW Coefficient of Variation 14.8 % (11.5-14.5); RDW Standard Deviation 53.2 fL (36.4-46.3); Red Blood Count 2.26 M/uL (3.93-5.22); White Blood Count 33.52 K/ul (4.8-10.8)
[2022-09-04 07:09] LABS: Basophils # (auto) 0.05 K/uL (0-0.2); Basophils % (auto) 0.1 %; Immature Granulocytes # (auto) 0.56 K/uL (0.00-0.02); Immature Granulocytes % (auto) 1.7 %; Lymphocytes # (auto) 0.57 K/uL (1.2-3.4); Lymphocytes % (auto) 1.7 %; Monocytes % (auto) 2.7 %; Neutrophils # (auto) 31.44 K/uL (1.4-6.5); Neutrophils % (auto) 93.8 %
[2022-09-04 07:13] LABS: Albumin Globulin Ratio 0.7 (0.9-2); Albumin Level 2.6 gm/dl (3.4-5.0); BUN Creatinine Ratio 67.1 (10-20); Bilirubin,Total 0.2 mg/dl (0.2-1.0); Calcium 8.2 mg/dl (8.5-10.1); Creatinine Clr Calc Pharmacy 51.9 ml/min; Est GFR (African American) 90.2 ml/min; Est GFR (Non-African American) 77.8 ml/min; Globulin 3.5 gm/dl (2.5-4.0); Magnesium 2.3 mg/dl (1.7-2.4); Potassium 4.2 mmol/L (3.5-5.1); Total Protein 6.1 gm/dl (6.0-8.3)
[2022-09-04] MEDS: ALBUT/IPRATROP 3MG/0.5MG NEB 3 ML VIAL NEB SCH ×4 (07:40→21:00)
[2022-09-04] MEDS: LANSOPRAZOLE 15 MG SOLTAB PEG SCH (09:11)
[2022-09-04] MEDS: CEFEPIME 2,000 MG in SYRINGE 0 ML IV SCH ×2 (09:12→20:22)
[2022-09-04] MEDS: GABAPENTIN 250 MG/5 ML 470 ML BTL PEG SCH ×3 (09:12→20:22)
[2022-09-04] MEDS: DULoxetine HCL 30 MG CAP PO SCH (09:13)
[2022-09-04] MEDS: MAGNESIUM OXIDE 400 MG TAB PEG SCH ×2 (09:13→20:23)
[2022-09-04] MEDS: TUBE FEEDING WATER FLUSH NG SCH ×2 (09:13→20:58)
[2022-09-04] MEDS: CYANOCOBALAMIN (B-12) 500 MCG TABLET PEG SCH (09:13)
[2022-09-04] MEDS: ACETAMINOPHEN SUSP 325 MG/10.15 ML UDC PEG SCH ×2 (11:08→20:22)
[2022-09-04] MEDS: [UNRECOGNIZED DRUG - REMARK] SCH (13:30)
[2022-09-04] MEDS ORDERED: LORazepam 1 MG TAB PEG SCH (14:00)
[2022-09-04] MEDS ORDERED: LORazepam 1 MG TAB PEG ONE (14:00)
[2022-09-04] MEDS: HEPARIN 100 UNIT/ML 5ML FLUSH FLUSH PRN (14:03)
--- NOTE | 2022-09-04 16:02 | Hospitalist Progress Note ---
Date of Service September 04, 2022 Assessment & Plan (1) Leukocytosis: Plan: WBC up to 41 without known source of infection apart from possible pneumonia. - UA on 09/03 was negative. - Monitor cultures - MRSA swab for pneumonia was negative. - Improved WBC to 33 on 09/04. -> Continue cefepime for now for presume pneumonia. (2) Weakness: Plan: Intense proximal muscle weakness which has gotten worse over the last 3 months. Many labs sent which have not truly pinpointed a cause though SUE is positive. - Discussed with rheumatology on 09/03 - Ordered aldolase, CK, ESR, CRP, and LDH. Anti-SRP Ab ordered. * CK, LDH normal * ESR, CRP elevated * Anti-SRP Ab ordered on 09/03 -> Pending results (it is a send out). - MRI of thighs to see if edema is present ordered on 09/04. (3) Hypertension: Plan: BP presently normal at 125/60. - Monitor; not on home meds (4) Vitamin B12 deficiency: Plan: Noted on prior admission. - Continue supplement (5) Breast cancer: Plan: Hx of Stage III breast cancer. Now finished with chemoradiation and mastectomy. [facility]. - Secondary to metastatic breast cancer - For pain control, continue acetaminophen & oxycodone Admission and Anticipated Discharge Date Admission Date: September 02, 2022 Subjective Feels discouraged today. Does not know what is going on, and feels like no one will find out. Reports no fevers/chills, chest pain, shortness of breath, abdominal pain, nausea, or vomiting. Physical Exam Constitutional: WD/WN, vitals as above Eyes: EOM intact bilaterally; no conjunctival abnormality ENMT: external ear and nose normal, oropharynx normal Neck: trachea midline, no thyromegaly normal visual inspection Respiratory: normal respiratory effort, lungs clear to auscultation no respiratory distress Cardiovascular: RRR, no murmur, no edema Gastrointestinal (Abdomen): Inspection/Auscultation: abdomen normal to inspection; abdomen not distended Neurologic: moves all extremities and awake Psychiatric: Orientation: alert, oriented to person and cooperative Results & Data Results & Data ([facility]) Vital Signs (Past 12 Hours) Vital Signs Temp Pulse Pulse Resp BP Pulse Ox O2 Del Method 09/04/22 15:32 84 18 94 Nasal Cannula 09/04/22 11:59 89 18 94 Nasal Cannula 09/04/22 11:39 36.6 C 90 20 125/65 95 Nasal Cannula 09/04/22 09:15 Nasal Cannula 09/04/22 07:59 36.7 C 86 16 108/55 L 97 Nasal Cannula 09/04/22 07:50 86 16 98 Nasal Cannula 09/04/22 06:59 86 O2 Flow Rate 09/04/22 15:32 3 09/04/22 11:59 3 09/04/22 11:39 3 09/04/22 09:15 4 09/04/22 07:59 4 09/04/22 07:50 4 09/04/22 06:59 PG Care Time/CCT Total # of Minutes Spent Total Time Spent with Patient: Total time spent is greater than 50% in coordination of care (as documented) at patient's floor/unit and/or counseling patient: Coding Level of Care Code 88642 Subseq Hosp Care Lvl 3 Diagnoses Leukocytosis D72.829 Weakness R53.1 Hypertension I10 Hypertension type: primary hypertension Vitamin B12 deficiency E53.8 Breast cancer C50.912 Breast location: unspecified site of breast Estrogen receptor status: unspecified Patient sex: female Laterality: left (1) Hypertension Hypertension type: primary hypertension Qualified Code(s): I10 - Essential (primary) hypertension (2) Breast cancer Breast location: unspecified site of breast Estrogen receptor status: unspecified Patient sex: female Laterality: left Qualified Code(s): C50.912 - Malignant neoplasm of unspecified site of left female breast
[2022-09-04] MEDS: PEPTAMEN 1.5 CAL 1,000 ML BAG GT SCH (21:10)
--- NOTE | 2022-09-04 21:13 | Magnetic Resonance Report ---
MR femur LT wo con, MR femur RT wo con HISTORY: 71 years-old Female Thigh musculature - Myositis acute severe lower extremity pain with wea kness COMPARISON: Hip radiographs 07/20/2022 TECHNIQUE: Multiplanar multisequence MRI of the bilateral femora obtained without the use of IV contr ast. FINDINGS: LEFT: This study is not tailored to assess the intrinsic structures of the hip or knee. No acute fracture, dislocation, osseous erosion or avascular necrosis identified. Imaged intrapelvic structures are unre markable. There is extensive diffuse subcutaneous, intramuscular and fascial edema. There is only mil d muscle atrophy. No intramuscular fluid collection. No acute tendon tear identified. Trace joint eff usion of the knee. RIGHT: This study is not tailored to assess the intrinsic structures of the hip or knee. No acute fracture, dislocation, osseous erosion or avascular necrosis identified. Imaged intrapelvic structures are unre markable. There is extensive diffuse subcutaneous, intramuscular and fascial edema. There is only mil d muscle atrophy. No intramuscular fluid collection. No acute tendon tear identified. Trace joint eff usion of the knee. IMPRESSION: 1. Motion degraded exam. No acute fracture or bone marrow edema. 2. Extensive subcutaneous and intramuscular edema of the bilateral thigh and pelvic musculature is co mpatible with a nonspecific myositis. No abscess. ACT 112: Negative or not required by law. The above report was generated using voice recognition software. It may contain grammatical, syntax o r spelling errors. Electronically signed by: Vlad Shelton M.D. 09/04/2022 9:11 PM
[2022-09-05] MEDS: ALBUT/IPRATROP 3MG/0.5MG NEB 3 ML VIAL NEB SCH ×4 (07:14→20:33)
[2022-09-05 08:42] LABS: Hematocrit (blood only) 18.1 % (34.1-44.9); Hemoglobin 5.8 g/dl (12.0-16.0); Mean Corpuscular Hemoglobin 31.7 pg (25.0-34.0); Mean Corpuscular Volume 98.9 fL (80.0-100.0); Mean Platelet Volume 10.2 fL (9.4-12.3); Platelet Count 161 K/uL (130-400); RDW Coefficient of Variation 15.1 % (11.5-14.5); RDW Standard Deviation 54.3 fL (36.4-46.3); Red Blood Count 1.83 M/uL (3.93-5.22); White Blood Count 19.18 K/ul (4.8-10.8)
[2022-09-05 08:52] LABS: Albumin Globulin Ratio 0.8 (0.9-2); Albumin Level 2.1 gm/dl (3.4-5.0); Anisocytosis Present; BUN Creatinine Ratio 91.8 (10-20); Basophils # (auto) 0.02 K/uL (0-0.2); Basophils % (auto) 0.1 %; Bilirubin,Total 0.2 mg/dl (0.2-1.0); Calcium 6.4 mg/dl (8.5-10.1); Creatinine Clr Calc Pharmacy 80.9 ml/min; Est GFR (Non-African American) 96.7 ml/min; Globulin 2.7 gm/dl (2.5-4.0); Immature Granulocytes # (auto) 0.31 K/uL (0.00-0.02); Immature Granulocytes % (auto) 1.6 %; Lymphocytes # (auto) 0.71 K/uL (1.2-3.4); Lymphocytes % (auto) 3.7 %; Magnesium 1.7 mg/dl (1.7-2.4); Monocytes # (auto) 1.06 K/uL (0.24-0.82); Monocytes % (auto) 5.5 %; Neutrophils # (auto) 17.08 K/uL (1.4-6.5); Neutrophils % (auto) 89.1 %; Potassium 3.3 mmol/L (3.5-5.1); Total Protein 4.8 gm/dl (6.0-8.3)
[2022-09-05] MEDS: GABAPENTIN 250 MG/5 ML 470 ML BTL PEG SCH ×3 (09:28→20:12)
[2022-09-05] MEDS: DULoxetine HCL 30 MG CAP PO SCH (09:28)
[2022-09-05] MEDS: CYANOCOBALAMIN (B-12) 500 MCG TABLET PEG SCH (09:28)
[2022-09-05] MEDS: CEFEPIME 2,000 MG in SYRINGE 0 ML IV SCH ×2 (09:28→17:41)
[2022-09-05] MEDS: LANSOPRAZOLE 15 MG SOLTAB PEG SCH (09:29)
[2022-09-05] MEDS: MAGNESIUM OXIDE 400 MG TAB PEG SCH ×2 (09:29→20:16)
[2022-09-05] MEDS: ACETAMINOPHEN SUSP 325 MG/10.15 ML UDC PEG SCH ×2 (09:29→20:13)
[2022-09-05] MEDS: TUBE FEEDING WATER FLUSH NG SCH ×2 (09:57→21:53)
[2022-09-05] MEDS: [UNRECOGNIZED DRUG - REMARK] SCH (11:30)
[2022-09-05] MEDS ORDERED: SODIUM CHLORIDE 0.9% 250 ML IV PRN (12:00)
[2022-09-05 12:33] LABS: Hematocrit (blood only) 21.8 % (34.1-44.9); Hemoglobin 7.2 g/dl (12.0-16.0); Immature Retic Fraction 21.6 % (3.0-15.9); Reticulated Hemoglobin 29.6 pg (28.2-36.6); Reticulocyte % 1.9 % (0.5-2.0); Reticulocytes # 0.04 10^6/uL (0.02-0.10)
[2022-09-05 12:59] LABS: Iron 64 mcg/dl (35-150); Transferrin 177 mg/dl (200-360); Unsaturated Iron Binding Cap 179 mcg/dl (155-355)
--- NOTE | 2022-09-05 13:32 | Surgery Consultation ---
Date of Consultation September 05, 2022 Assessment & Plan (1) Weakness: This is a 71y F with a PMH of breast CA, CKD, port and feeding tube in place, who presents to the [facility] on 09/02 with ambulatory dysfunction and weakness. MRI of femur obtained while here showing "extensive subcutaneous and intramuscular edema of the bilateral thigh and pelvic musculature is compatible with a nonspecific myositis. No abscess." Labs show WBC 19, CRP 25. No pain to b/l LE's. We have been asked to obtain a muscle biopsy to send out to pathology for diagnostic purposes of her symptomatology. We will perform this tomorrow in the AM. Quadriceps muscle preferred. NPO at midnight. Dr. Baumann to obtain consent. Supervising Physician Co-Signing Physician Notes Dr. Baumannpatient with bilateral lower extremity muscle weakness and severe pain Evidence on her MRI of edema and inflammation in both legs equally especially in the quadricep area Plan is for right quadricep muscle biopsy tomorrow likely under local sedation History of Present Illness Attending Physician: Beto Nur MD History of Present Illness This is a 71y F with a PMH of breast CA, CKD, port and feeding tube in place, who presents to the [facility] on 09/02 with ambulatory dysfunction and weakness. The patient tells me she was diagnosed with breast CA in 2021, underwent chemo, and bilateral mastectomies thereafter. She developed trouble swallowing prompting her to receive a feeding tube in January. She reports over the past several weeks she has been dealing with progressive weakness. She has a set up at home (bed/commode, etc) and lives with her daughter and son in law, however they have been having increasing difficulty caring for her. MRI of femur obtained while here showing "extensive subcutaneous and intramuscular edema of the bilateral thigh and pelvic musculature is compatible with a nonspecific myositis. No abscess." Since states her weakness is primarily in her lower extremities not upper. No fevers/chills, CP/SOB, abdominal pain. Allergies Allergy/AdvReac Type Severity Reaction Status Date / Time pistachio nut AdvReac Severe Red face Verified 09/02/22 21:15 and hands ~ Throwing up Home Medications Medication Instructions Recorded Confirmed Type albuterol sulfate 90 mcg/actuation 2 inh inhalation QID PRN shortness 08/03/22 09/02/22 Rx aerosol inhaler of breath or wheezing or cough #8.5 grams cyanocobalamin (vitamin B-12) 500 1,000 mcg PEG QAM #30 tabs 08/03/22 09/02/22 Rx mcg tablet nut.tx.impaired digest fxn 0.068 1,000 ml G-tube DAILY@1999 #1,000 08/03/22 09/02/22 Rx gram-1.5 kcal/mL oral liquid mL (Peptamen 1.5) polyethylene glycol 3350 17 17 g PO DAILY PRN Constipation 08/23/22 09/02/22 History gram/dose oral powder (Miralax) tramadol 50 mg tablet 50 mg feeding tube Q6H PRN Pain 08/23/22 09/02/22 History acetaminophen 325 mg tablet 650 mg feeding tube BID 09/02/22 09/02/22 History (Tylenol) duloxetine 30 mg capsule,delayed 30 mg DAILY 09/02/22 09/02/22 History release gabapentin 300 mg capsule 300 mg feeding tube TID 09/02/22 09/02/22 History lansoprazole 15 mg delayed 15 mg feeding tube DAILY 09/02/22 09/02/22 History release,disintegrating tablet levofloxacin 500 mg tablet 500 mg feeding tube QPM 09/02/22 09/02/22 History magnesium oxide 400 mg feeding tube BID 09/02/22 09/02/22 History ondansetron HCl 8 mg tablet 8 mg feeding tube Q8H PRN 09/02/22 09/02/22 History NAUSEA/VOMITING oxycodone 5 mg tablet 5 mg feeding tube .Q4-6HR PRN Pain 09/02/22 09/02/22 History Patient History Medical History Breast cancer Chronic obstructive pulmonary disease Constipation Dysphagia Elevated AST (SGOT) Former smoker Hypertension Hyponatremia Leg weakness, bilateral Low back pain Malignant neoplasm of central portion of left breast in female, estrogen receptor negative (01/04/22) Pancytopenia Peripheral neuropathy Port-A-Cath in place Severe protein-calorie malnutrition Surgical History History of left mastectomy Hx of tonsillectomy PEG (percutaneous endoscopic gastrostomy) status Family History Mother Hypertension Sister Hypertension Brother Hypertension Father Lung cancer Social History Smoking Status: Current some day smoker Tobacco Type: Cigarettes Cigarettes Per Day: 3; Second Hand Exposure: No; Hx Alcohol Use: No Hx Substance Use: No Preferred Language: Maori Communication Ability: Effective Hearing Ability: Normal Central Melt Specialist Required: No Beliefs That Will Affect Care: None marital status: / Current Living Situation: Family current occupational status: retired How many Children do You have: 1 Feels Safe at Home: Yes Diet Comment: Peg tube feeds, Boost daily; small amounts orally during the past year weight has: decreased > 10 lbs Dental Care, Regularly: Yes Physical Activity Frequency: Does not Exercise Seatbelt Use: always Do you think of yourself as: straight/heterosexual Gender Identity: Female Assistive Devices: Cane, Glasses and Walker Review of Systems Constitutional: + fatigue and + weakness; no fever and no chills Respiratory: no dyspnea Cardiovascular: no chest pain Gastrointestinal: no abdominal pain, no nausea and no vomiting Musculoskeletal: + muscle weakness (bilateral lower extremity) Physical Exam Physical Exam: awake/alert, no acute distress Respiratory: normal respiratory effort Gastrointestinal (Abdomen): Percussion/Palpation: abdomen soft; abdomen nontender feeding tube in place Musculoskeletal: Extremities: + muscle atrophy (b/l LE) no pain/swelling to bilateral lower extremities Results & Data ([facility]) Vital Signs (Past 12 Hours) Vital Signs Temp Pulse Pulse Pulse Resp BP BP 09/05/22 13:29 36.5 C 87 18 135/62 09/05/22 11:15 89 18 09/05/22 11:12 36.7 C 86 21 131/62 09/05/22 09:30 09/05/22 07:45 90 09/05/22 07:48 36.4 C L 96 H 20 125/62 09/05/22 07:22 94 H 18 09/05/22 03:26 36.4 C L 92 H 18 120/54 L Pulse Ox O2 Del Method O2 Flow Rate 09/05/22 13:29 95 09/05/22 11:15 97 Nasal Cannula 1 09/05/22 11:12 96 Nasal Cannula 12/14/22 09:30 Nasal Cannula 4 09/05/22 07:45 09/05/22 07:48 97 Nasal Cannula 09/05/22 07:22 95 Nasal Cannula 2 09/05/22 03:26 96 Nasal Cannula 2 Diagnostic Findings MR femur LT wo con, MR femur RT wo con HISTORY: 71 years-old Female Thigh musculature - Myositis acute severe lower extremity pain with weakness COMPARISON: Hip radiographs 07/20/2022 TECHNIQUE: Multiplanar multisequence MRI of the bilateral femora obtained without the use of IV contrast. FINDINGS: LEFT: This study is not tailored to assess the intrinsic structures of the hip or knee. No acute fracture, dislocation, osseous erosion or avascular necrosis identified. Imaged intrapelvic structures are unremarkable. There is extensive diffuse subcutaneous, intramuscular and fascial edema. There is only mild muscle atrophy. No intramuscular fluid collection. No acute tendon tear identified. Trace joint effusion of the knee. RIGHT: This study is not tailored to assess the intrinsic structures of the hip or knee. No acute fracture, dislocation, osseous erosion or avascular necrosis identified. Imaged intrapelvic structures are unremarkable. There is extensive diffuse subcutaneous, intramuscular and fascial edema. There is only mild muscle atrophy. No intramuscular fluid collection. No acute tendon tear identified. Trace joint effusion of the knee. IMPRESSION: 1. Motion degraded exam. No acute fracture or bone marrow edema. 2. Extensive subcutaneous and intramuscular edema of the bilateral thigh and pelvic musculature is compatible with a nonspecific myositis. No abscess. ACT 112: Negative or not required by law. The above report was generated using voice recognition software. It may contain grammatical, syntax or spelling errors. Electronically signed by: Vlad Shelton M.D. 09/04/2022 9:11 PM PG Care Time/CCT Total # of Minutes Spent Total Time Spent with Patient: Total time spent is greater than 50% in coordination of care (as documented) at patient's floor/unit and/or counseling patient: Coding Level of Care Code 42777 Initial Inpt Care Lvl 1 Diagnoses Weakness R53.1
--- NOTE | 2022-09-05 14:32 | Hospitalist Progress Note ---
Date of Service September 05, 2022 Assessment & Plan (1) Leukocytosis: Plan: WBC up to 41 without known source of infection apart from possible pneumonia. Also with mild hypoxemia requiring 1L NC. - UA on 09/03 was negative. - Monitor cultures - Blood cultures from 09/02 negative so far. - MRSA swab for pneumonia was negative. - Improved WBC to 33 on 09/04 & 19 on 09/05. -> Switch to ceftriaxone for now for presumed pneumonia. (End date would be 09/07 for a 5-day course.) (2) Weakness: Plan: Intense proximal muscle weakness which has gotten worse over the last 3 months. Many labs sent which have not truly pinpointed a cause though SUE is positive. - Discussed with rheumatology on 09/03 - Ordered aldolase, CK, ESR, CRP, and LDH. Anti-SRP Ab ordered. * CK, LDH normal * ESR, CRP elevated * Anti-SRP Ab ordered on 09/03 -> Pending results (it is a send out). 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 Have discussed with Dr. Jackson (Dr. 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 Plan for muscle biopsy on 09/06. Full myositis lab panel sent out on 09/06 - Pending. (3) Breast cancer: Plan: Hx of Stage III breast cancer. Now finished with chemoradiation and mastectomy. [facility]. - For pain control, continue acetaminophen & oxycodone - Discussed with Dr. Morgan -> Will get bone scan. (4) Hypertension: Plan: BP presently normal at 130/60. - Monitor; not on home meds (5) Vitamin B12 deficiency: Plan: Noted on prior admission. - Continue supplement (6) Severe protein-calorie malnutrition: Plan: Due to cancer, chemotherapy, and possible inflammatory disease. - S/p PEG tube in 01/[address] Go. Slight leak in PEG over last few days. Discussed with GI who assure us we can trim the end and re-attach the Y- port. - Continue home tube feeds and free water flushes (7) DVT prophylaxis: Plan: SCDs - Will start Lovenox 40 mg SQ daily tomorrow after muscle biopsy is complete. Admission and Anticipated Discharge Date Admission Date: September 02, 2022 Subjective Feeling less discouraged today. Has some hope in regards to a diagnosis which is giving her hope. Stable from symptom standpoint. Physical Exam Constitutional: WD/WN, vitals as above Eyes: EOM intact bilaterally; no conjunctival abnormality ENMT: external ear and nose normal, oropharynx normal Neck: trachea midline, no thyromegaly normal visual inspection Respiratory: normal respiratory effort, lungs clear to auscultation no respiratory distress Cardiovascular: RRR, no murmur, no edema Gastrointestinal (Abdomen): Inspection/Auscultation: abdomen normal to inspection; abdomen not distended Musculoskeletal: Grossly weak in proximal muscles. Neurologic: moves all extremities and awake Psychiatric: Orientation: alert, oriented to person and cooperative Results & Data Results & Data ([facility]) Vital Signs (Past 12 Hours) Vital Signs Temp Pulse Pulse Pulse Resp BP BP 09/05/22 14:00 36.7 C 85 16 132/69 09/05/22 13:45 36.8 C 87 18 127/67 09/05/22 13:44 36.8 C 87 18 127/67 09/05/22 13:29 36.5 C 87 18 135/62 09/05/22 11:15 89 18 09/05/22 11:12 36.7 C 86 21 131/62 09/05/22 09:30 09/05/22 07:45 90 09/05/22 07:48 36.4 C L 96 H 20 125/62 09/05/22 07:22 94 H 18 09/05/22 03:26 36.4 C L 92 H 18 120/54 L Pulse Ox O2 Del Method O2 Flow Rate 09/05/22 14:00 97 09/05/22 13:45 97 09/05/22 13:44 97 09/05/22 13:29 95 09/05/22 11:15 97 Nasal Cannula 1 09/05/22 11:12 96 Nasal Cannula 09/05/22 09:30 Nasal Cannula 4 09/05/22 07:45 09/05/22 07:48 97 Nasal Cannula 09/05/22 07:22 95 Nasal Cannula 2 09/05/22 03:26 96 Nasal Cannula 2 PG Care Time/CCT Total # of Minutes Spent Total Time Spent with Patient: Total time spent is greater than 50% in coordination of care (as documented) at patient's floor/unit and/or counseling patient: Coding Level of Care Code 98205 Subseq Hosp Care Lvl 3 Diagnoses Leukocytosis D72.829 Weakness R53.1 Breast cancer C50.912 Breast location: unspecified site of breast Estrogen receptor status: unspecified Patient sex: female Laterality: left Hypertension I10 Hypertension type: primary hypertension Vitamin B12 deficiency E53.8 Severe protein-calorie malnutrition E43 DVT prophylaxis Z29.9 (1) Hypertension Hypertension type: primary hypertension Qualified Code(s): I10 - Essential (primary) hypertension (2) Breast cancer Breast location: unspecified site of breast Estrogen receptor status: unspecified Patient sex: female Laterality: left Qualified Code(s): C50.912 - Malignant neoplasm of unspecified site of left female breast
[2022-09-05] MEDS: LOPERAMIDE LIQUID 120 ML BOTTLE PO PRN (15:04)
[2022-09-05] MEDS: PEPTAMEN 1.5 CAL 1,000 ML BAG GT SCH (20:31)
[2022-09-06] MEDS: CEFEPIME 2,000 MG in SYRINGE 0 ML IV SCH (02:07)
--- NOTE | 2022-09-06 06:25 | History & Physical Bridge Note ---
Date of Service September 06, 2022 History & Physical Bridge Note I have examined the patient, reviewed the History & Physical and in the interval since the performance of the History & Physical I have noted the following changes of clinical significance: no changes noted
--- NOTE | 2022-09-06 06:54 | Anesthesiology Consultation ---
Date of Service September 06, 2022 Assessment & Plan Chart Review Chart Review: Acceptable Risk for Surgery and Patient NOT seen in Pre Admission Testing Consults Requested none ASA ASA4 Proposed Anesthesia Anesthesia Type: MAC History Surgery Operation Date: 09/06/22 07:00 Proposed Procedures p Right Versus Left Quad Muscle Biopsy - Rohit Baumann MD, FACS Height/Weight Height: 5 ft 5 in Weight: 49 kg Allergies Allergy/AdvReac Type Severity Reaction Status Date / Time pistachio nut AdvReac Severe Red face Verified 09/02/22 21:15 and hands ~ Throwing up Medications Home Medications Medication Instructions Recorded Confirmed Last Taken albuterol sulfate 90 mcg/actuation 2 inh inhalation QID PRN shortness 08/03/22 09/02/22 Unknown aerosol inhaler of breath or wheezing or cough #8.5 grams cyanocobalamin (vitamin B-12) 500 1,000 mcg PEG QAM #30 tabs 08/03/22 09/02/22 09/02/22 mcg tablet nut.tx.impaired digest fxn 0.068 1,000 ml G-tube DAILY@1999 #1,000 08/03/22 09/02/22 09/01/22 gram-1.5 kcal/mL oral liquid mL (Peptamen 1.5) polyethylene glycol 3350 17 17 g PO DAILY PRN Constipation 08/23/22 09/02/22 Unknown gram/dose oral powder (Miralax) tramadol 50 mg tablet 50 mg feeding tube Q6H PRN Pain 08/23/22 09/02/22 09/02/22 12:00 acetaminophen 325 mg tablet 650 mg feeding tube BID 09/02/22 09/02/22 09/02/22 08:00 (Tylenol) duloxetine 30 mg capsule,delayed 30 mg DAILY 09/02/22 09/02/22 09/02/22 release gabapentin 300 mg capsule 300 mg feeding tube TID 09/02/22 09/02/22 09/02/22 14: 00 lansoprazole 15 mg delayed 15 mg feeding tube DAILY 09/02/22 09/02/22 09/02/22 release,disintegrating tablet levofloxacin 500 mg tablet 500 mg feeding tube QPM 09/02/22 09/02/22 09/01/22 magnesium oxide 400 mg feeding tube BID 09/02/22 09/02/22 09/02/22 08:00 ondansetron HCl 8 mg tablet 8 mg feeding tube Q8H PRN 09/02/22 09/02/22 Unknown NAUSEA/VOMITING oxycodone 5 mg tablet 5 mg feeding tube .Q4-6HR PRN Pain 09/02/22 09/02/22 Unknown Active Medications Generic Name Dose Route Start Last Admin Trade Name Freq PRN Reason Stop Dose Admin Acetaminophen 650 mg 09/03/22 09:00 09/05/22 20:13 Acetaminophen Susp 325 Mg/10.15 Ml Udc PEG 10/03/22 08:59 650 mg BID KULWANT Administration Albuterol 3 ml 09/03/22 07:00 09/05/22 20:33 Albut/Ipratrop 3mg/0.5mg Neb 3 Ml Vial NEB 10/03/22 06:59 3 ml QIDR KULWANT Administration Protocol Cyanocobalamin 1,000 mcg 09/03/22 09:00 09/05/22 09:28 Cyanocobalamin (B-12) 500 Mcg Tablet PEG 10/03/22 08:59 1,000 mcg QAM KULWANT Administration Duloxetine HCl 30 mg 09/03/22 09:00 09/05/22 09:28 Duloxetine Hcl 30 Mg Cap PO 10/03/22 08:59 30 mg DAILY KULWANT Administration Enteral Nutritional Formula 1,000 ml 09/03/22 20:00 09/05/22 20:31 Peptamen 1.5 Gerhard 1,000 Ml Bag GT 10/03/22 19:59 1,000 ml UD KULWANT Administration Protocol Gabapentin 300 mg 09/03/22 09:00 09/05/22 20:12 Gabapentin 250 Mg/5 Ml 470 Ml Btl PEG 10/03/22 08:59 300 mg TID KULWANT Administration Heparin Sodium (Porcine) 5 ml 09/04/22 04:39 09/04/22 14:03 Heparin 100 Unit/Ml 5ml Flush FLUSH 10/04/22 04:38 5 ml PRN PRN Administration Flush Cefepime HCl 2,000 mg/ Syringe 20 mls @ 5 mls/min 09/05/22 18:00 09/06/22 02:07 IV 09/10/22 08:59 5 mls/min Q8H KULWANT Administration Protocol Lansoprazole 15 mg 09/03/22 09:00 09/05/22 09:29 Lansoprazole 15 Mg Soltab PEG 10/03/22 08:59 Not Given DAILY KULWANT Loperamide HCl 2 mg 09/05/22 12:36 09/05/22 15:04 Loperamide Liquid 120 Ml Bottle PO 10/05/22 12:35 2 mg Q4H PRN Administration Diarrhea Magnesium Oxide 400 mg 09/03/22 09:00 09/05/22 20:16 Magnesium Oxide 400 Mg Tab PEG 10/03/22 08:59 400 mg BID KULWANT Administration Melatonin 6 mg 09/04/22 00:09 09/04/22 00:48 Melatonin 3 Mg Tab PO 10/04/22 00:08 6 mg HS PRN Administration Sleep Miscellaneous 1 each 09/03/22 11:00 09/05/22 11:30 Tube Feeds: Stop Order N/A 10/03/22 10:59 1 each Q24H KULWANT Administration Sterile Water 60 ml 09/03/22 11:00 09/05/22 21:53 Tube Feeding Water Flush NG 10/03/22 10:59 60 ml BID KULWANT Administration NPO Date Last Intake of Fluids: 09/05/22 Time Last Intake of Fluids: 17:00 Date Last Intake of Solids: 09/05/22 Time Last Intake of Solids: 18:00 Last Intake of Solids Comment: TPN stopped at mightnight. Past Medical History Medical History Breast cancer Chronic obstructive pulmonary disease Constipation Dysphagia Elevated AST (SGOT) Former smoker Hypertension Hyponatremia Leg weakness, bilateral Low back pain Malignant neoplasm of central portion of left breast in female, estrogen receptor negative (01/04/22) Pancytopenia Peripheral neuropathy Port-A-Cath in place Severe protein-calorie malnutrition Exercise / Class Metabolic Activity III < 4 Walking/Shop/Light housework Past Family History Family History Mother Hypertension Sister Hypertension Brother Hypertension Father Lung cancer Past Surgical History Surgical History History of left mastectomy Hx of tonsillectomy PEG (percutaneous endoscopic gastrostomy) status Past Anesthesia History No Hx of Anesthesia Complications and No Family Hx of Anesthesia Complications History of PONV No Hx of PONV and No Hx of Motion Sickness Social History Smoking Status: Current some day smoker tobacco type: cigarettes Smoking cigarettes per day: 3 Do You Dip or Chew Tobacco: No Hx Alcohol Use: No Alcohol type: hard liquor alcohol intake frequency: a few times a week Hx Substance Use: No substance use type: does not use Physical Exam Vital Signs Last Vital Signs Temp 37.1 C 09/06/22 06:46 Pulse 95 H 09/06/22 06:46 Resp 18 09/06/22 06:46 BP 155/80 H 09/06/22 06:46 Pulse Ox 98 09/06/22 06:46 O2 Del Method 09/06/22 06:46 O2 Flow Rate 5 09/06/22 06:46 FiO2 4 09/03/22 03:00 Testing Laboratory Results 09/05/22 12:17 09/05/22 08:05 PT 10.4 Seconds (9.0-12.0) 09/02/22 19:53 INR 1.0 (0.9-1.1) 09/02/22 19:53 APTT 28.2 Seconds (21.0-31.0) 09/02/22 19:53 Urine Color Yellow 09/04/22 00:10 Urine Appearance Clear (Clear) 09/04/22 00:10 Urine pH 5.5 (4.5-7.5) 09/04/22 00:10 Ur Specific [place] 1.022 (1.000-1.030) 09/04/22 00:10 Urine Protein 1+ (Negative) H 09/04/22 00:10 Urine Glucose (UA) Negative (Negative) 09/04/22 00:10 Urine Ketones Negative (Negative) 09/04/22 00:10 Urine Nitrite Negative (Negative) 09/04/22 00:10 Ur Leukocyte Esterase Negative (Negative) 09/04/22 00:10 Urine WBC (Auto) 1-5 /hpf (0-5) 09/04/22 00:10 Urine RBC (Auto) 0-4 /hpf (0-4) 09/04/22 00:10 U Hyaline Cast (Auto) 1-5 /lpf (0-5) 09/04/22 00:10 U Epithel Cells (Auto) 10-20 /lpf (0-5) H 09/04/22 00:10 Urine Bacteria (Auto) Negative (Negative) 09/04/22 00:10 Blood Type B Positive 09/05/22 12:17 Antibody Screen NEGATIVE 09/05/22 12:17 09/02/22 19:56 Aerobic Blood Culture - Preliminary Blood No growth in Aerobic bottle after 48 hours. Anaerobic Blood Culture - Preliminary No growth in Anaerobic bottle after 48 hours. 09/02/22 19:56 Aerobic Blood Culture - Preliminary Blood No growth in Aerobic bottle after 48 hours. Anaerobic Blood Culture - Preliminary No growth in Anaerobic bottle after 48 hours. Electrocardiogram Date: 09/02/22 Findings: + ST @ (@ 109;? old septal infarct) Chest X-Ray Date: 09/02/22 Findings: + infiltrate (left basilar opacity) and + pleural effusion (small left) Echocardiogram Date: 05/14/22 EF: 50% LV Function: dysfunctional (mild decrease) RWMA: + none Valvular Disease: + MR (moderate MR)
[2022-09-06] MEDS ORDERED: MIDAZOLAM HCL 1 MG/ML 2ML VIAL ONE (07:04)
[2022-09-06] MEDS ORDERED: LIDOCAINE 1% LOCAL 20 ML VIAL ONE (07:10)
[2022-09-06] MEDS: ALBUT/IPRATROP 3MG/0.5MG NEB 3 ML VIAL NEB SCH ×4 (07:13→20:32)
[2022-09-06] MEDS ORDERED: PROPOFOL IV EMULSION 10 MG/ML 20 ML VIAL IV ONE (07:19)
[2022-09-06] MEDS ORDERED: ePHEDrine sulfate 50 MG/ML AMP IV PRN (07:44)
[2022-09-06] MEDS ORDERED: ATROPINE SULFATE 0.1 MG/ML 10ML SYR IV PRN (07:44)
[2022-09-06] MEDS ORDERED: ACETAMINOPHEN 1,000 MG/100 ML VIAL IV ONE (07:56)
--- NOTE | 2022-09-06 07:56 | Post Operative Brief Note ---
PG Immediate Post Op with CF Date of Surgery September 06, 2022 Pre & Post Diagnosis Operation Date: 09/06/22 07:00 Pre-Op Diagnosis: Myositis Post-Op Diagnosis: Myositis I identified the patient and participated in the time-out.: Yes Procedure Operation Date: 09/06/22 07:00 Actual Procedures p Right Quad Muscle Biopsy(Right) - Rohit Baumann MD, FACS Surgeon Rohit Baumann MD, FACS Sales Supervisor Nurses Estimated Blood Loss 5 Findings Consistent with Post-Op Diagnosis Right quadricep muscle biopsy Specimens Specimen Description: A. Right quadricep
--- NOTE | 2022-09-06 08:13 | Operative Report (OR) ---
DATE OF OPERATION: 09/06/2022. NAME OF OPERATION: Right quadriceps muscle biopsy. PREOPERATIVE DIAGNOSIS: Myositis. POSTOPERATIVE DIAGNOSIS: Myositis. STAFF SURGEON: Rohit Baumann MD. RECORD CHANGER ASSEMBLER: Nurses. ANESTHESIA: 1% plain lidocaine with sedation. DESCRIPTION OF PROCEDURE: The patient was brought in the operating room, placed on the operating tab le in supine position. Her right thigh was prepped and draped in the usual fashion. The anterior qu adriceps was approached. 1% plain lidocaine used to anesthetize tissue. Longitudinal incision made carrying dissection down through the subcutaneous tissue, identifying the fascia, opening the fascia, dissecting out the muscle fibers. They were ligated on each end using 0 chromic suture, then transe cted using a scalpel. After appropriate hemostasis, the fascia was closed using 0 chromic suture and then the subcutaneous tissue reapproximated using 2-0 chromic suture, then the skin reapproximated u sing 4-0 Prolene suture and Steri-Strips. Dressing applied. The patient was transferred to recovery room in stable condition. Job ID: [id number]
--- NOTE | 2022-09-06 09:27 | Anesthesiology Progress Note ---
Date of Service September 06, 2022 Anesthesia Post Procedure Vital Signs Vital Signs: Temp Pulse Pulse Pulse Resp BP BP 09/06/22 09:00 90 14 167/85 H 09/06/22 08:45 88 13 166/82 H 09/06/22 08:20 37.1 C 82 16 151/78 H 09/06/22 08:10 87 16 152/79 H 09/06/22 08:30 83 18 152/79 H 09/06/22 08:03 86 22 132/76 09/06/22 07:21 89 09/06/22 06:46 37.1 C 95 H 18 155/80 H 09/06/22 00:00 101 H 09/06/22 03:45 37.0 C 94 H 20 09/05/22 23:20 36.5 C 93 H 20 09/05/22 20:00 09/05/22 20:33 113 H 18 09/05/22 19:30 36.9 C 95 H 20 09/05/22 17:20 36.6 C 92 H 18 146/53 H 09/05/22 14:30 84 09/05/22 16:30 36.6 C 89 18 134/64 09/05/22 16:22 36.7 C 61 16 129/65 09/05/22 15:30 36.2 C L 79 16 153/71 H 09/05/22 15:45 84 17 09/05/22 14:30 36.6 C 89 18 140/69 09/05/22 14:00 36.7 C 85 16 132/69 09/05/22 13:45 36.8 C 87 18 127/67 09/05/22 13:44 36.8 C 87 18 127/67 09/05/22 13:29 36.5 C 87 18 135/62 09/05/22 11:15 89 18 09/05/22 11:12 36.7 C 86 21 09/05/22 09:30 BP Pulse Ox O2 Del Method O2 Flow Rate 09/06/22 09:00 95 Nasal Cannula 2 09/06/22 08:45 96 Nasal Cannula 2 09/06/22 08:20 98 Nasal Cannula 2 09/06/22 08:10 97 Nasal Cannula 2 09/06/22 08:30 99 Nasal Cannula 2 09/06/22 08:03 99 Nasal Cannula 4 09/06/22 07:21 09/06/22 06:46 98 Nasal Cannula 5 09/06/22 00:00 09/06/22 03:45 148/77 H 97 Nasal Cannula 5 09/05/22 23:20 137/69 99 Nasal Cannula 5 09/05/22 20:00 Nasal Cannula 5 09/05/22 20:33 91 Nasal Cannula 5 09/05/22 19:30 148/71 H 91 Nasal Cannula 5 09/05/22 17:20 93 4 09/05/22 14:30 09/05/22 16:30 96 09/05/22 16:22 94 Nasal Cannula 2 09/05/22 15:30 97 09/05/22 15:45 96 Room Air 09/05/22 14:30 98 09/05/22 14:00 97 09/05/22 13:45 97 09/05/22 13:44 97 09/05/22 13:29 95 09/05/22 11:15 97 Nasal Cannula 1 09/05/22 11:12 131/62 96 Nasal Cannula 09/05/22 09:30 Nasal Cannula 4 Transfer of Care Handoff Completed per policy Notes Mental Status: alert / awake / arousable Patient Amnestic to Procedure: Yes Nausea / Vomiting: adequately controlled Pain: adequately controlled Airway Patency, RR, SpO2: stable & adequate BP & HR: stable & adequate Hydration State: stable & adequate Anesthetic Complications: no major complications apparent
[2022-09-06] MEDS: ACETAMINOPHEN SUSP 325 MG/10.15 ML UDC PEG SCH ×3 (09:45→19:49)
[2022-09-06] MEDS: TUBE FEEDING WATER FLUSH NG SCH (09:59)
[2022-09-06] MEDS: LANSOPRAZOLE 15 MG SOLTAB PEG SCH (09:59)
[2022-09-06] MEDS: MAGNESIUM OXIDE 400 MG TAB PEG SCH ×2 (09:59→19:54)
[2022-09-06] MEDS: DULoxetine HCL 30 MG CAP PO SCH (09:59)
[2022-09-06] MEDS: CYANOCOBALAMIN (B-12) 500 MCG TABLET PEG SCH ×2 (10:00→10:02)
[2022-09-06] MEDS: GABAPENTIN 250 MG/5 ML 470 ML BTL PEG SCH ×3 (10:00→19:53)
[2022-09-06 10:02] LABS: Hematocrit (blood only) 28.8 % (34.1-44.9); Hemoglobin 9.6 g/dl (12.0-16.0); Mean Corpuscular Hemoglobin 31.8 pg (25.0-34.0); Mean Corpuscular Hgb Conc 33.3 g/dL (32.0-36.0); Mean Corpuscular Volume 95.4 fL (80.0-100.0); Mean Platelet Volume 9.8 fL (9.4-12.3); Platelet Count 209 K/uL (130-400); RDW Coefficient of Variation 15.9 % (11.5-14.5); RDW Standard Deviation 55.7 fL (36.4-46.3); Red Blood Count 3.02 M/uL (3.93-5.22); White Blood Count 14.02 K/ul (4.8-10.8)
[2022-09-06 10:24] LABS: BUN Creatinine Ratio 66.7 (10-20); Calcium 8.9 mg/dl (8.5-10.1); Creatinine Clr Calc Pharmacy 53.8 ml/min; Est GFR (African American) 96.3 ml/min; Est GFR (Non-African American) 83.1 ml/min; Magnesium 2.1 mg/dl (1.7-2.4); Potassium 4.2 mmol/L (3.5-5.1)
[2022-09-06] MEDS: [UNRECOGNIZED DRUG - REMARK] SCH (11:27)
[2022-09-06] MEDS: LOPERAMIDE LIQUID 120 ML BOTTLE PO PRN (13:01)
--- NOTE | 2022-09-06 14:25 | Hospitalist Progress Note ---
Date of Service September 06, 2022 Assessment & Plan (1) Pneumonia: Plan: WBC up to 41. Initially not convinced it was pneumonia given the extremely high leukocytosis, but no other source found. With mild hypoxemia requiring 1-2L NC. - UA on 09/03 was negative. - Monitor cultures - Blood cultures from 09/02 negative so far. - MRSA swab for pneumonia was negative. - Improved WBC with treatment -> Switched from cefepime to ceftriaxone for now for presumed pneumonia. (End date would be 09/07 for a 5-day course.) (2) Weakness: Plan: Intense proximal muscle weakness which has gotten worse over the last 3 months. Many labs sent which have not truly pinpointed a cause though SUE is positive. 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 * CK, LDH normal * ESR, CRP elevated * Anti-SRP Ab ordered on 09/03 -> Pending results (it is a send out). * Large myositis Ab panel ordered on 09/05. * Muscle biopsy on 09/06 sent out. - Discussed with rheumatology on 09/03 & 09/05. Will await results of send out labs and muscle biopsy, but then would consider IVIg and steroids if it turns out she has autoimmune myositis. (3) Breast cancer: Plan: Hx of Stage III breast cancer. Now finished with chemoradiation and mastectomy. [facility]. - For pain control, continue acetaminophen & oxycodone - Discussed with Dr. Morgan -> Will get bone scan today. (4) Hypertension: Plan: BP presently normal at 150/60. - Monitor; not on home meds (5) Vitamin B12 deficiency: Plan: Noted on prior admission. - Continue supplement (6) Severe protein-calorie malnutrition: Plan: Due to cancer, chemotherapy, and possible inflammatory disease. - S/p PEG tube in 01/[address] Go. - Continue home tube feeds and free water flushes (7) DVT prophylaxis: Plan: SCDs - Will start Lovenox 40 mg SQ daily tomorrow. Admission and Anticipated Discharge Date Admission Date: September 02, 2022 Subjective Seen after surgery today. She is doing well overall. No major pain after surgery. No shortness of breath. Weakness is stable. No abdominal pain. Physical Exam Constitutional: WD/WN, vitals as above Eyes: EOM intact bilaterally; no conjunctival abnormality ENMT: external ear and nose normal, oropharynx normal Neck: trachea midline, no thyromegaly normal visual inspection Respiratory: normal respiratory effort, lungs clear to auscultation no respiratory distress Cardiovascular: RRR, no murmur, no edema Gastrointestinal (Abdomen): Inspection/Auscultation: abdomen normal to inspection; abdomen not distended Neurologic: moves all extremities and awake Psychiatric: Orientation: alert, oriented to person and cooperative Results & Data Results & Data ([facility]) Vital Signs (Past 12 Hours) Vital Signs Temp Pulse Pulse Pulse Resp BP BP 09/06/22 11:38 36.4 C L 85 18 09/06/22 11:21 83 09/06/22 10:57 88 16 09/06/22 10:00 09/06/22 09:32 36.6 C 86 18 151/66 H 09/06/22 09:00 90 14 167/85 H 09/06/22 08:45 88 13 166/82 H 09/06/22 08:20 37.1 C 82 16 151/78 H 09/06/22 08:10 87 16 152/79 H 09/06/22 08:30 83 18 152/79 H 09/06/22 08:03 86 22 132/76 09/06/22 07:21 89 09/06/22 06:46 37.1 C 95 H 18 155/80 H 09/06/22 03:45 37.0 C 94 H 20 148/77 H Pulse Ox O2 Del Method O2 Flow Rate 09/06/22 11:38 94 Room Air, Nasal Cannula 2 09/06/22 11:21 09/06/22 10:57 94 Nasal Cannula 1 09/06/22 10:00 Nasal Cannula 2 09/06/22 09:32 95 Nasal Cannula 2 09/06/22 09:00 95 Nasal Cannula 2 09/06/22 08:45 96 Nasal Cannula 2 09/06/22 08:20 98 Nasal Cannula 2 09/06/22 08:10 97 Nasal Cannula 2 09/06/22 08:30 99 Nasal Cannula 2 09/06/22 08:03 99 Nasal Cannula 4 09/06/22 07:21 09/06/22 06:46 98 Nasal Cannula 5 09/06/22 03:45 97 Nasal Cannula 5 PG Care Time/CCT Total # of Minutes Spent Total Time Spent with Patient: Total time spent is greater than 50% in coordination of care (as documented) at patient's floor/unit and/or counseling patient: Coding Level of Care Code 78800 Subseq Hosp Care Lvl 3 Diagnoses Pneumonia J18.9 Weakness R53.1 Breast cancer C50.912 Breast location: unspecified site of breast Estrogen receptor status: unspecified Patient sex: female Laterality: left Hypertension I10 Hypertension type: primary hypertension Vitamin B12 deficiency E53.8 Severe protein-calorie malnutrition E43 DVT prophylaxis Z29.9 (1) Breast cancer Breast location: unspecified site of breast Estrogen receptor status: unspecified Patient sex: female Laterality: left Qualified Code(s): C50.912 - Malignant neoplasm of unspecified site of left female breast (2) Hypertension Hypertension type: primary hypertension Qualified Code(s): I10 - Essential (primary) hypertension
[2022-09-06] MEDS: TUBE FEEDING WATER FLUSH PEG SCH ×2 (15:43→19:56)
--- NOTE | 2022-09-06 16:53 | Nuclear Medicine Report ---
WHOLE BODY BONE SCAN HISTORY: Stage III breast cancer hx. Per oncology. RADIOTRACER: 27.0 mCi Tc-99m MDP STUDY/IMAGES: Planar anterior and posterior whole body imaging was performed 3 hours following the i ntravenous administration of radiotracer. COMPARISON: PET/CT 06/06/2022. FINDINGS: No suspicious areas of radiotracer uptake seen within the axial or appendicular skeleton to suggest metastatic disease. IMPRESSION: No evidence for osseous metastatic disease. ACT 112: Negative or not required by law. Electronically signed by: Nilton Quintanilla M.D. 09/06/2022 4:51 PM
[2022-09-06] MEDS ORDERED: cefTRIAXone SODIUM 2,000 MG in DEXTROSE 5% 50 ML IV SCH (17:00)
[2022-09-06] MEDS: HYDROCODONE/ACETAMOPHEN 5/325MG TAB PO PRN (19:46)
[2022-09-06] MEDS: PEPTAMEN 1.5 CAL 1,000 ML BAG GT SCH (19:55)
[2022-09-06] MEDS ORDERED: SODIUM CHLORIDE 0.9% 1000ML 500 ML IV ONE (22:42)
[2022-09-07] MEDS: TUBE FEEDING WATER FLUSH PEG SCH ×7 (01:28→23:03)
[2022-09-07] MEDS: ALBUT/IPRATROP 3MG/0.5MG NEB 3 ML VIAL NEB SCH ×4 (07:31→19:56)
--- NOTE | 2022-09-07 07:33 | Surgery Progress Note ---
Date of Service September 07, 2022 Assessment & Plan (1) Myositis: Plan: Status post muscle biopsy Will have follow-up in the office Pathology is pending Specimen required send out to tertiary care center Admission and Anticipated Discharge Date Admission Date: September 02, 2022 Results & Data ([facility]) Vital Signs (Past 12 Hours) Vital Signs Temp Pulse Pulse Resp BP Pulse Ox O2 Del Method 09/07/22 07:10 109 H 09/07/22 03:09 36.4 C L 109 H 18 114/48 L 93 Nasal Cannula 09/07/22 00:00 118 H 09/06/22 23:23 37.3 C 117 H 20 93/48 L 92 Nasal Cannula 09/06/22 20:00 Nasal Cannula 09/06/22 21:22 38.9 C H 130 H 14 95/54 L 92 Nasal Cannula 09/06/22 20:34 84 18 96 Nasal Cannula 09/06/22 20:00 37.6 C H 102 H 20 156/74 H 93 Nasal Cannula O2 Flow Rate 09/07/22 07:10 09/07/22 03:09 2 09/07/22 00:00 09/06/22 23:23 2 09/06/22 20:00 2 09/06/22 21:22 2 09/06/22 20:34 2 09/06/22 20:00 2 PG Care Time/CCT Total # of Minutes Spent Total Time Spent with Patient: Total time spent is greater than 50% in coordination of care (as documented) at patient's floor/unit and/or counseling patient: Coding Level of Care Code None Diagnoses Myositis M60.9
[2022-09-07 08:25] LABS: BUN Creatinine Ratio 59.7 (10-20); Calcium 8.1 mg/dl (8.5-10.1); Creatinine Clr Calc Pharmacy 53.1 ml/min; Est GFR (African American) 96.3 ml/min; Est GFR (Non-African American) 83.1 ml/min; Magnesium 1.7 mg/dl (1.7-2.4); Potassium 3.6 mmol/L (3.5-5.1)
[2022-09-07 08:32] LABS: Hematocrit (blood only) 25.9 % (34.1-44.9); Hemoglobin 8.8 g/dl (12.0-16.0); Mean Corpuscular Hemoglobin 32.1 pg (25.0-34.0); Mean Corpuscular Volume 94.5 fL (80.0-100.0); Platelet Estimate Normal (Normal); RDW Coefficient of Variation 15.6 % (11.5-14.5); RDW Standard Deviation 53.4 fL (36.4-46.3); Red Blood Count 2.74 M/uL (3.93-5.22); White Blood Count 24.77 K/ul (4.8-10.8)
[2022-09-07] MEDS: ACETAMINOPHEN SUSP 325 MG/10.15 ML UDC PEG SCH ×2 (09:10→20:34)
[2022-09-07] MEDS: HEPARIN 100 UNIT/ML 5ML FLUSH FLUSH PRN ×2 (09:10→21:09)
[2022-09-07] MEDS: GABAPENTIN 250 MG/5 ML 470 ML BTL PEG SCH ×3 (09:10→20:34)
[2022-09-07] MEDS: CYANOCOBALAMIN (B-12) 500 MCG TABLET PEG SCH (09:11)
[2022-09-07] MEDS: oxyCODONE HCL IR 5 MG TAB (IMMEDIATE RELEASE) PEG PRN ×2 (09:11→20:34)
[2022-09-07] MEDS: DULoxetine HCL 30 MG CAP PO SCH (09:11)
[2022-09-07] MEDS: LANSOPRAZOLE 15 MG SOLTAB PEG SCH (09:12)
[2022-09-07] MEDS: LOPERAMIDE LIQUID 120 ML BOTTLE PO PRN (09:12)
[2022-09-07] MEDS: MAGNESIUM OXIDE 400 MG TAB PEG SCH ×2 (09:12→20:34)
[2022-09-07] MEDS: [UNRECOGNIZED DRUG - REMARK] SCH (11:12)
[2022-09-07] MEDS: ONDANSETRON INJ 2 MG/ML 2 ML VIAL IV PRN (11:26)
--- NOTE | 2022-09-07 11:50 | XRay Report ---
KUB CLINICAL HISTORY: PEG tube, fever, mild abdominal pain COMPARISON STUDY: CT of the abdomen and pelvis February 02, 2022. FINDINGS: Gastrostomy tube projects over the stomach. The bowel gas pattern is normal. No urinary bolivar culi are identified. There is no evidence for free air on this supine exam. IMPRESSION: No evidence for a bowel obstruction. ACT 112: Negative or not required by law. Electronically signed by: Regino Hayden M.D. 09/07/2022 11:49 AM
--- NOTE | 2022-09-07 11:52 | XRay Report ---
XR chest 1V portable HISTORY: 71 years-old Female Fever, hypoxemia, concern for aspiration acute fever with hypoxia COMPARISON: 09/02/2022 TECHNIQUE: AP view of the chest FINDINGS: The cardiomediastinal and hilar silhouettes are unchanged. Right IJ central venous catheter is noted with distal tip in the expected location of the mid SVC. There is no pneumothorax. Small pleural effu sions with mild bibasilar densities. IMPRESSION: Small layering pleural effusions with mild bibasilar opacities. ACT 112: Negative or not required by law. The above report was generated using voice recognition software. It may contain grammatical, syntax o r spelling errors. Electronically signed by: Vlad Shelton M.D. 09/07/2022 11:50 AM
[2022-09-07 12:03] LABS: Appearance Urine Clear (Clear); Bacteria Urine Automated Negative (Negative); Bilirubin Urine Negative (Negative); Blood Urine Trace (Negative); Cast Urine Automated 0 /lpf (0-5); Color Urine Yellow; Glucose Urine UA Negative (Negative); Ketones Urine Negative (Negative); Leukocyte Esterase Urine Negative (Negative); Nitrite Urine Negative (Negative); Protein Urine 1+ (Negative); RBC Urine Automated 0-4 /hpf (0-4); Specific Gravity Urine 1.015 (1.000-1.030); Urobilinogen Urine Negative (Negative)
[2022-09-07] MEDS ORDERED: LACTATED RINGER'S 500 ML IV ONE (13:44)
--- NOTE | 2022-09-07 13:44 | Hospitalist Progress Note ---
Date of Service September 07, 2022 Assessment & Plan (1) Pneumonia: Plan: WBC up to 41. Initially not convinced it was pneumonia given the extremely high leukocytosis, but no other source found. With mild hypoxemia requiring 1-2L NC. - UA on 09/03 was negative. - Monitor cultures - Blood cultures from 09/02 negative so far. - MRSA swab for pneumonia was negative. - Improved WBC with treatment -> Switched from cefepime to ceftriaxone for now for presumed pneumonia. (End date would be 09/07 for a 5-day course.) -> Leukocytosis back up to 25 after downtrending. Procal is 7.0. UA on 09/07 normal. Will repeat cultures, get CT c/a/p to look for any hidden source. (2) Weakness: Plan: Intense proximal muscle weakness which has gotten worse over the last 3 months. Many labs sent which have not truly pinpointed a cause though SUE is positive. 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 * CK, LDH normal * ESR, CRP elevated * Anti-SRP Ab ordered on 09/03 -> Pending results (it is a send out). * Large myositis Ab panel ordered on 09/05. * Muscle biopsy on 09/06 sent out. - Discussed with rheumatology on 09/03, 09/05, & 09/07. Will await results of send out labs and muscle biopsy, but then would consider IVIg and steroids. Will start Solu-Medrol 125 mg IV BID if infectious work-up is negative. (3) Breast cancer: Plan: Hx of Stage III breast cancer. Now finished with chemoradiation and mastectomy. [facility]. - For pain control, continue acetaminophen & oxycodone - Discussed with Dr. Morgan -> Bone scan on 09/06 without evidence of metastatic disease. (4) Hypertension: Plan: BP presently normal at 130/60. - Monitor; not on home meds (5) Vitamin B12 deficiency: Plan: Noted on prior admission. - Continue supplement (6) Severe protein-calorie malnutrition: Plan: Due to cancer, chemotherapy, and possible inflammatory disease. - S/p PEG tube in 01/[address] Go. - Continue home tube feeds and free water flushes (7) DVT prophylaxis: Plan: SCDs - Start Lovenox 40 mg SQ daily today. Admission and Anticipated Discharge Date Admission Date: September 02, 2022 Subjective Eventful night last night with episode of tachycardia, mild hypotension, and fever. Bolus given, but no further cultures drawn. Reports no fevers/chills, chest pain, shortness of breath, abdominal pain, nausea, or vomiting. Physical Exam Constitutional: WD/WN, vitals as above Eyes: EOM intact bilaterally; no conjunctival abnormality ENMT: external ear and nose normal, oropharynx normal Neck: trachea midline, no thyromegaly normal visual inspection Respiratory: normal respiratory effort, lungs clear to auscultation no respiratory distress Cardiovascular: Rate/Rhythm: regular rhythm and + tachycardic Heart Sounds: normal S1 and normal S2 Gastrointestinal (Abdomen): Inspection/Auscultation: abdomen normal to inspection; abdomen not distended Neurologic: moves all extremities and awake Psychiatric: Orientation: alert, oriented to person and cooperative Results & Data Results & Data ([facility]) Vital Signs (Past 12 Hours) Vital Signs Temp Pulse Pulse Resp BP BP Pulse Ox 09/07/22 11:15 37.2 C 108 H 20 132/67 96 09/07/22 11:07 104 H 18 96 09/07/22 07:55 09/07/22 07:52 36.8 C 115 H 20 132/62 92 09/07/22 07:32 110 H 19 90 09/07/22 07:10 109 H 09/07/22 03:09 36.4 C L 109 H 18 114/48 L 93 O2 Del Method O2 Flow Rate 09/07/22 11:15 Nasal Cannula 2 09/07/22 11:07 Nasal Cannula 2 09/07/22 07:55 Nasal Cannula 2 09/07/22 07:52 Room Air 09/07/22 07:32 Nasal Cannula 2 09/07/22 07:10 09/07/22 03:09 Nasal Cannula 2 PG Care Time/CCT Total # of Minutes Spent Total Time Spent with Patient: Total time spent is greater than 50% in coordination of care (as documented) at patient's floor/unit and/or counseling patient: Coding Level of Care Code 90141 Subseq Hosp Care Lvl 3 Diagnoses Pneumonia J18.9 Weakness R53.1 Breast cancer C50.912 Breast location: unspecified site of breast Estrogen receptor status: unspecified Laterality: left Patient sex: female Hypertension I10 Hypertension type: primary hypertension Vitamin B12 deficiency E53.8 Severe protein-calorie malnutrition E43 DVT prophylaxis Z29.9 (1) Breast cancer Breast location: unspecified site of breast Estrogen receptor status: unspecified Laterality: left Patient sex: female Qualified Code(s): C50.912 - Malignant neoplasm of unspecified site of left female breast (2) Hypertension Hypertension type: primary hypertension Qualified Code(s): I10 - Essential (primary) hypertension
[2022-09-07] MEDS ORDERED: OPTIRAY 320 500ml IV ONE (16:14)
--- NOTE | 2022-09-07 16:32 | CT Scan Report ---
CT ANGIOGRAPHY OF THE CHEST, PULMONARY EMBOLUS PROTOCOL CLINICAL HISTORY: Fever. Tachycardia. Leukocytosis. COMPARISON STUDY: Chest radiograph September 02, 2022 and September 07, 2022. PET/CT June 06 2. TECHNIQUE: Following IV administration of 114 mL of Optiray, helical axial images of the chest were o btained utilizing the pulmonary embolus protocol. Maximal intensity projections and sagittal and cor onal reformats were viewed on an independent 3D workstation. IV contrast was administered without co mplication. Automated exposure control was utilized for the study. A dose lowering technique was ut ilized adhering to the principles of ALARA. CT DOSE: 492.44 mGy.cm FINDINGS: Right internal jugular [id number]-v-Glgm is in place. No enlarged axillary, mediastinal or hil ar lymph nodes are present. The size of the heart is normal. There is no pericardial effusion. No tho racic aortic dissection is present. No pulmonary emboli are identified. Small bilateral pleural effus ions, left larger than right, are noted. The right lower lobe is nearly entirely opacified. Note is m yamile of extensive secretions within the right lower lobe bronchus extending into segmental bronchi of the right lower lobe. There are also extensive secretions within the left lower lobe bronchus with se gmental left lower lobe airspace opacity. There are patchy additional airspace opacities within lungs . Mild emphysema is present. Left breast/chest wall edema is noted. This is new since prior PET/CT. T his finding is partially imaged on this exam. The abdomen and pelvis CT will be reported separately. No suspicious lesions within the visualized bony thorax are identified. IMPRESSION: 1. No pulmonary emboli identified. 2. Near complete opacification of the right lower lobe with segmental left lower lobe airspace opacit y. Given extensive secretions within the bilateral lower lobe bronchi, the findings suggest extensive aspiration pneumonia. 3. Small bilateral pleural effusions. 4. Emphysema. 5. Nonspecific left breast/chest wall edema/soft tissue thickening, partially imaged on this exam. Th is may be treatment related or represent asymmetric body wall edema. ACT 112: Negative or not required by law. Electronically signed by: Regino Hayden M.D. 09/07/2022 4:31 PM
--- NOTE | 2022-09-07 16:37 | CT Scan Report ---
CT OF THE ABDOMEN AND PELVIS WITH CONTRAST CLINICAL HISTORY: Fever, tachycardia, leukocytosis COMPARISON STUDY: CT of the abdomen and pelvis February 02, 2022 and PET/CT June 06, 2022. KUB perfo rmed earlier today. TECHNIQUE: Following IV administration of Optiray, axial images of the abdomen and pelvis were obtain ed from the lung bases to the proximal femurs. Images were reviewed in the axial, sagittal, and coron al planes. IV contrast was administered without complication. Automated exposure control was utilize d for the study. A dose lowering technique was utilized adhering to the principles of ALARA. Oral co ntrast was administered. FINDINGS: Please note that the chest CT will be reported separately. Extensive bilateral lower lobe c onsolidation, greater on the right, and small bilateral pleural fusions are better depicted on that e xam. No pneumatosis, free air or portal venous gas is present. Biliary ductal dilatation is similar t o CT of February 04, 2022. The gallbladder is mildly distended. There are gallstones within the gallbladde r. There may be trace adjacent fluid. The spleen, adrenal glands and pancreas are unremarkable. Moder ate left renal atrophy is present. There is no hydronephrosis. Peripherally calcified right renal les ion is likely benign. There is no evidence for a bowel obstruction. The caliber and wall thickness of small and large bowel are normal. Anasarca is noted with body wall edema. Gastrostomy tube is in [place] ce. Calcified fibroid is incidentally noted. IMPRESSION: 1. Findings suggestive of extensive aspiration pneumonia within the bilateral lower lobes with small bilateral pleural effusions. Findings better depicted on the chest CT which will be reported separate ly. 2. Cholelithiasis with mild gallbladder distention. The findings do not strongly suggest acute cholec ystitis however a right upper quadrant ultrasound could be obtained for further evaluation. 3. No bowel obstruction. No bowel wall thickening. 4. Body wall edema. ACT 112: Negative or not required by law. Electronically signed by: Regino Hayden M.D. 09/07/2022 4:36 PM
[2022-09-07] MEDS: PIPERACILLIN/TAZOBACTAM 3.375 GM in DEXTROSE 5% 100 ML IV SCH ×2 (17:00→23:52)
[2022-09-07] MEDS: PEPTAMEN 1.5 CAL 1,000 ML BAG GT SCH (21:26)
[2022-09-08] MEDS: TUBE FEEDING WATER FLUSH PEG SCH ×5 (03:21→21:02)
[2022-09-08 06:46] LABS: Albumin Globulin Ratio 0.7 (0.9-2); Albumin Level 2.7 gm/dl (3.4-5.0); BUN Creatinine Ratio 47.9 (10-20); Bilirubin,Total 0.3 mg/dl (0.2-1.0); Calcium 8.3 mg/dl (8.5-10.1); Creatinine Clr Calc Pharmacy 52.3 ml/min; Est GFR (African American) 94.7 ml/min; Est GFR (Non-African American) 81.7 ml/min; Globulin 3.7 gm/dl (2.5-4.0); Magnesium 1.8 mg/dl (1.7-2.4); Potassium 3.9 mmol/L (3.5-5.1); Total Protein 6.4 gm/dl (6.0-8.3)
[2022-09-08 06:56] LABS: Basophils # (auto) 0.04 K/uL (0-0.2); Basophils % (auto) 0.2 %; Eosinophils # (auto) 1.03 K/uL (0-0.50); Hematocrit (blood only) 26.2 % (34.1-44.9); Hemoglobin 8.5 g/dl (12.0-16.0); Immature Granulocytes # (auto) 0.74 K/uL (0.00-0.02); Immature Granulocytes % (auto) 3.6 %; Lymphocytes # (auto) 0.57 K/uL (1.2-3.4); Lymphocytes % (auto) 2.8 %; Mean Corpuscular Hemoglobin 31.3 pg (25.0-34.0); Mean Corpuscular Hgb Conc 32.4 g/dL (32.0-36.0); Mean Corpuscular Volume 96.3 fL (80.0-100.0); Monocytes % (auto) 3.9 %; Neutrophils # (auto) 17.45 K/uL (1.4-6.5); Neutrophils % (auto) 84.5 %; RDW Coefficient of Variation 15.6 % (11.5-14.5); RDW Standard Deviation 54.7 fL (36.4-46.3); Red Blood Count 2.72 M/uL (3.93-5.22); White Blood Count 20.63 K/ul (4.8-10.8)
[2022-09-08] MEDS: ALBUT/IPRATROP 3MG/0.5MG NEB 3 ML VIAL NEB SCH ×4 (07:18→19:57)
[2022-09-08] MEDS: PIPERACILLIN/TAZOBACTAM 3.375 GM in DEXTROSE 5% 100 ML IV SCH ×2 (08:05→15:39)
[2022-09-08] MEDS: ACETAMINOPHEN SUSP 325 MG/10.15 ML UDC PEG SCH (08:17)
[2022-09-08] MEDS: CYANOCOBALAMIN (B-12) 500 MCG TABLET PEG SCH (08:19)
[2022-09-08] MEDS: DULoxetine HCL 30 MG CAP PO SCH (08:19)
[2022-09-08] MEDS: MAGNESIUM OXIDE 400 MG TAB PEG SCH ×2 (08:20→21:04)
[2022-09-08] MEDS: LANSOPRAZOLE 15 MG SOLTAB PEG SCH (08:20)
[2022-09-08] MEDS: GABAPENTIN 250 MG/5 ML 470 ML BTL PEG SCH ×4 (08:20→21:08)
[2022-09-08] MEDS ORDERED: LORazepam 0.25 MG in SYRINGE 0 ML IV STA (08:42)
[2022-09-08] MEDS: [UNRECOGNIZED DRUG - REMARK] SCH (11:10)
--- NOTE | 2022-09-08 11:20 | Pulmonary Consultation ---
Date of Consultation September 08, 2022 Assessment & Plan (1) Pneumonia: (2) Hypoxia: (3) Acute respiratory failure with hypoxia: Plan Impression: 71-year-old female with stage III breast cancer with progressive neuromuscular issues resulting in PEG tube recurrent aspiration and recurrent episodes of aspiration pneumonia. She is now unable to manage lower respiratory secretions and is obtunded due to receiving Ativan earlier in the day. Recommendations: 1. I had an extended discussion with the patient's daughter at bedside as the patient is unable to participate in the discussion currently. Discussed with her that her inability to manage secretions right now may be a life-threatening issue. The patient is DO NOT INTUBATE DO NOT RESUSCITATE. We discussed bronchoscopy which would temporarily potentially improved secretions in the airways although would be unlikely to improve the dense consolidation noted on the bilateral lower lobes. Unfortunately, bronchoscopy would likely only alleviate the secretions for a temporary period of time and as the patient is having difficulty clearing the secretions, they would rapidly reaccumulate, typically within hours to days. The patient's daughter is not interested in pursuing aggressive interventions. I advised her that the definitive approach to this would be a tracheostomy which the patient and the daughter are opposed to. They also do not want her intubated. They are not keen on the idea of sedation for any additional procedures. I advised her that we could try and pursue bedside bronchoscopy without sedation but I would not typically recommend it and the patient's daughter wants to focus on some palliative issues. She is struggling with the decline of her mother but understands the gravity of the situation. I think at this point in time engagement of peer palliative care would be appropriate as its unclear if the patient is going to improve enough to resume her previous quality of life. Review of the records does demonstrate a slow and steady decline in functional status. 2. I discussed briefly with her other interventions to try and improve pulmonary toilet. The patient is too weak and obtunded to consider flutter valve. CoughAssist device would likely only be effective the patient was able to cough and participate in some form of pulmonary toilet. Hypertonic saline an expectorant such as Mucinex again would only be helpful if the patient were able to cough. 3. The patient may be developing hypercarbic respiratory failure. Her venous PCO2 on the was 45 which would be high. I suspect it may be higher. Unfortunately noninvasive positive pressure ventilation is likely going to result in worsening of ability to manage secretions. The only intervention which would address both of these would be endotracheal intubation. Unfortunately, it appears the patient may be progressing to a palliative approach. I do not think pulmonary has much else to offer this patient at this point in time. Antibiotics can be continued for now but if the patient continues to aspirate, I suspect pneumonia and potentially development of an empyema at some point in time is a real possibility. Results were communicated to the hospitalist service. Unfortunately not much to add from a pulmonary perspective at this time. Please call if ?S History of Present Illness Attending Physician: Beto Nur MD History of Present Illness Asked by hospitalist to assist in evaluation management this patient with aspiration pneumonia, dense lower lobe consolidation, hypoxemic respiratory failure, and inability to manage secretions. History is obtained from review electronic medical record and discussion with the hospitalist as well as discussion with the patient's daughter who is at bedside. The patient is delirious and obtunded and unable to provide any pertinent history. Patient is a 71-year-old female with a history of stage III breast cancer. Most recent PET scan demonstrated significant response to chemotherapy. She has a history of progressive dysphagia and during a prior evaluation in June was noted to have significant swallowing dysfunction. She has had progressive myopathy dating back for 2 months. Neurology saw her and initially contemplated sending a paraneoplastic syndrome however the cost of that study was negative be covered by insurance and was felt to be prohibitive. She has chronic pain issues as well. She was seen by ENT with recommendations to pursue outpatient fiberoptic laryngoscopy. She was seen by palliative care over a month ago. During the course of this hospitalization the patient's been on broad-spectrum antibiotics. She underwent a muscle biopsy and according to her daughter has been worse since that time. She has had copious secretions which have required frequent oral and nasal suctioning. She received Ativan this morning and is somnolent obtunded and disoriented and unable to provide any history. The patient's daughter is a hospice nurse. She is struggling with the patient's decline. She is seeing her significantly decline in function. She is not interested in pursuing aggressive interventions including intubation and tracheostomy etc.. Allergies Allergy/AdvReac Type Severity Reaction Status Date / Time pistachio nut AdvReac Severe Red face Verified 09/02/22 21:15 and hands ~ Throwing up Home Medications Medication Instructions Recorded Confirmed Type albuterol sulfate 90 mcg/actuation 2 inh inhalation QID PRN shortness 08/03/22 09/02/22 Rx aerosol inhaler of breath or wheezing or cough #8.5 grams cyanocobalamin (vitamin B-12) 500 1,000 mcg PEG QAM #30 tabs 08/03/22 09/02/22 Rx mcg tablet nut.tx.impaired digest fxn 0.068 1,000 ml G-tube DAILY@1999 #1,000 08/03/22 09/02/22 Rx gram-1.5 kcal/mL oral liquid mL (Peptamen 1.5) polyethylene glycol 3350 17 17 g PO DAILY PRN Constipation 08/23/22 09/02/22 History gram/dose oral powder (Miralax) tramadol 50 mg tablet 50 mg feeding tube Q6H PRN Pain 08/23/22 09/02/22 History acetaminophen 325 mg tablet 650 mg feeding tube BID 09/02/22 09/02/22 History (Tylenol) duloxetine 30 mg capsule,delayed 30 mg DAILY 09/02/22 09/02/22 History release gabapentin 300 mg capsule 300 mg feeding tube TID 09/02/22 09/02/22 History lansoprazole 15 mg delayed 15 mg feeding tube DAILY 09/02/22 09/02/22 History release,disintegrating tablet levofloxacin 500 mg tablet 500 mg feeding tube QPM 09/02/22 09/02/22 History magnesium oxide 400 mg feeding tube BID 09/02/22 09/02/22 History ondansetron HCl 8 mg tablet 8 mg feeding tube Q8H PRN 09/02/22 09/02/22 History NAUSEA/VOMITING oxycodone 5 mg tablet 5 mg feeding tube .Q4-6HR PRN Pain 09/02/22 09/02/22 History Patient History Medical History (Updated 09/07/22 @ 11:23 by Surekha Holland RN) Breast cancer Chronic obstructive pulmonary disease Constipation Dysphagia Elevated AST (SGOT) Former smoker Hypertension Hyponatremia Leg weakness, bilateral Low back pain Malignant neoplasm of central portion of left breast in female, estrogen receptor negative (01/04/22) Pancytopenia Peripheral neuropathy Port-A-Cath in place Severe protein-calorie malnutrition Surgical History (Updated 09/07/22 @ 11:23 by Surekha Holland RN) Encounter for biopsy (09/06/22) Right quadriceps muscle biopsy. Dr. 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 Beliefs That Will Affect Care: None marital status: / Current Living Situation: Family current occupational status: retired How many Children do You have: 1 Feels Safe at Home: Yes Diet Comment: Peg tube feeds, Boost daily; small amounts orally during the past year weight has: decreased > 10 lbs Dental Care, Regularly: Yes Physical Activity Frequency: Does not Exercise Seatbelt Use: always Do you think of yourself as: straight/heterosexual Gender Identity: Female Assistive Devices: Cane, Glasses and Walker Review of Systems Review of Systems: Unobtainable due to reduced consciousness Physical Exam Physical Exam: Coarse rhonchorous breath sounds Constitutional: + cachectic, + frail appearing, + disheveled and + lethargic Neck: trachea midline, no thyromegaly Respiratory: + labored breathing and + tachypneic Auscultation: + rhonchi Coarse rhonchi bilaterally Cardiovascular: RRR, no murmur, no edema Gastrointestinal (Abdomen): normal bowel sounds, soft, nontender, no hepatosplenomegaly Musculoskeletal: Extremities: extremities normal to inspection Skin: no rashes, warm and dry Neurologic: Obtunded Lymphatic: no cervical lymphadenopathy Results & Data Results & Data ([facility]) Vital Signs (Past 12 Hours) Vital Signs Temp Pulse Pulse Resp BP Pulse Ox O2 Del Method 09/08/22 07:51 37.6 C H 108 H 20 133/63 95 Room Air 09/08/22 07:29 Nasal Cannula 09/08/22 07:16 104 H 09/08/22 07:18 84 26 H 95 Nasal Cannula 09/08/22 04:00 36.6 C 101 H 18 119/67 97 Nasal Cannula O2 Flow Rate 09/08/22 07:51 09/08/22 07:29 2 09/08/22 07:16 09/08/22 07:18 3 09/08/22 04:00 2 Critical Care Results & Data Vital Signs (Past 12 Hours) Vital Signs Temp Pulse Pulse Resp BP Pulse Ox O2 Del Method 09/08/22 07:51 37.6 C H 108 H 20 133/63 95 Room Air 09/08/22 07:29 Nasal Cannula 09/08/22 07:16 104 H 09/08/22 07:18 84 26 H 95 Nasal Cannula 09/08/22 04:00 36.6 C 101 H 18 119/67 97 Nasal Cannula O2 Flow Rate 09/08/22 07:51 09/08/22 07:29 2 09/08/22 07:16 09/08/22 07:18 3 09/08/22 04:00 2 Lab & Micro Results (Past 24 Hours) RBC 2.72 M/uL (3.93-5.22) L 09/08/22 WBC 20.63 K/ul (4.8-10.8) H 09/08/22 Hgb 8.5 g/dl (12.0-16.0) L 09/08/22 Hct 26.2 % (34.1-44.9) L 09/08/22 MCV 96.3 fL (80.0-100.0) 09/08/22 MCH 31.3 pg (25.0-34.0) 09/08/22 MCHC 32.4 g/dL (32.0-36.0) 09/08/22 RDW Standard Deviation 54.7 fL (36.4-46.3) H 09/08/22 RDW Coefficient of Variation 15.6 % (11.5-14.5) H 09/08/22 Plt Count K/uL (130-400) 09/08/22 MPV fL (9.4-12.3) 09/08/22 Neutrophils (%) (Auto) 84.5 % 09/08/22 Lymphocytes (%) (Auto) 2.8 % 09/08/22 Monocytes # (Auto) 0.80 K/uL (0.24-0.82) 09/08/22 Eosinophils # (Auto) 1.03 K/uL (0-0.50) H 09/08/22 Immature Granulocyte % (Auto) 3.6 % 09/08/22 Neutrophils # (Auto) 17.45 K/uL (1.4-6.5) H 09/08/22 Lymphocytes # (Auto) 0.57 K/uL (1.2-3.4) L 09/08/22 Monocytes # (Auto) 0.80 K/uL (0.24-0.82) 09/08/22 Eosinophils # (Auto) 1.03 K/uL (0-0.50) H 09/08/22 Basophils # (Auto) 0.04 K/uL (0-0.2) 09/08/22 Immature Granulocyte # (Auto) 0.74 K/uL (0.00-0.02) H 09/08 Na 131 mmol/L (136-145) L 09/08/22 K 3.9 mmol/L (3.5-5.1) 09/08/22 Cl 97 mmol/L (98-107) L 09/08/22 CO2 29 mmol/L (21-32) 09/08/22 Anion Gap 5 (3-11) 09/08/22 BUN 35 mg/dl (6-23) H 09/08/22 Creatinine 0.73 mg/dl (0.6-1.2) 09/08/22 Estimated GFR ( Amer) 94.7 ml/min 09/08/22 Estimated GFR (Non-Af Amer) 81.7 ml/min 09/08/22 BUN/Creatinine Ratio 47.9 (10-20) H 09/08/22 Glu 134 mg/dl (70-99(Fasting)) H 09/08/22 Ca 8.3 mg/dl (8.5-10.1) L 09/08/22 Total Bilirubin 0.3 mg/dl (0.2-1.0) 09/08/22 AST 123 U/L (13-39) H 09/08/22 ALT 231 U/L (7-52) H 09/08/22 Alkaline Phosphatase 205 U/L (34-104) H 09/08/22 TP 6.4 gm/dl (6.0-8.3) 09/08/22 Albumin 2.7 gm/dl (3.4-5.0) L 09/08/22 Globulin 3.7 gm/dl (2.5-4.0) 09/08/22 Albumin/Globulin Ratio 0.7 (0.9-2) L 09/08/22 Mg 1.8 mg/dl (1.7-2.4) 09/08/22 06:05 Calcium Level 8.3 mg/dl (8.5-10.1) L 09/08/22 06:05 Microbiology 09/05/22 23:20 Gram Stain - Final Sputum, Expectorated Sputum Culture - Final Light normal enma. 09/02/22 19:56 Aerobic Blood Culture - Final Blood No growth in Aerobic bottle after 5 days. Anaerobic Blood Culture - Final No growth in Anaerobic bottle after 5 days. 09/02/22 19:56 Aerobic Blood Culture - Final Blood No growth in Aerobic bottle after 5 days. Anaerobic Blood Culture - Final No growth in Anaerobic bottle after 5 days. Diagnostic Findings (Past 24 Hours) Chest X-Ray 09/07/22 11:04 XR chest 1V portable HISTORY: 71 years-old Female Fever, hypoxemia, concern for aspiration acute fever with hypoxia COMPARISON: 09/02/2022 TECHNIQUE: AP view of the chest FINDINGS: The cardiomediastinal and hilar silhouettes are unchanged. Right IJ central venous catheter is noted with distal tip in the expected location of the mid SVC. There is no pneumothorax. Small pleural effusions with mild bibasilar dens ities. IMPRESSION: Small layering pleural effusions with mild bibasilar opacities. ACT 112: Negative or not required by law. The above report was generated using voice recognition software. It may contain grammatical, syntax or spelling errors. Electronically signed by: Vlad Shelton M.D. 09/07/2022 11:50 AM KUB X-Ray 09/07/22 11:04 KUB CLINICAL HISTORY: PEG tube, fever, mild abdominal pain COMPARISON STUDY: CT of the abdomen and pelvis February 02, 2022. FINDINGS: Gastrostomy tube projects over the stomach. The bowel gas pattern is normal. No urinary calculi are identified. There is no evidence for free air on this supine exam. IMPRESSION: No evidence for a bowel obstruction. ACT 112: Negative or not required by law. Electronically signed by: Regino Hayden M.D. 09/07/2022 11:49 AM Abdomen/Pelvis CT 09/07/22 13:50 CT OF THE ABDOMEN AND PELVIS WITH CONTRAST CLINICAL HISTORY: Fever, tachycardia, leukocytosis COMPARISON STUDY: CT of the abdomen and pelvis February 02, 2022 and PET/CT June 06, 2022. KUB performed earlier today. TECHNIQUE: Following IV administration of Optiray, axial images of the abdomen and pelvis were obtained from the lung bases to the proximal femurs. Images were reviewed in the axial, sagittal, and coronal planes. IV contrast was administered without complication. Automated exposure control was utilized for the study. A dose lowering technique was utilized adhering to the principles of ALARA. Oral contrast was administered. FINDINGS: Please note that the chest CT will be reported separately. Extensive bilateral lower lobe consolidation, greater on the right, and small bilateral pleural fusions are better depicted on that exam. No pneumatosis, free air or portal venous gas is present. Biliary ductal dilatation is similar to CT of February 04, 2022. The gallbladder is mildly distended. There are gallstones within the gallbladder. There may be trace adjacent fluid. The spleen, adrenal glands and pancreas are unremarkable. Moderate left renal atrophy is present. There is no hydronephrosis. Peripherally calcified right renal lesion is likely benign. There is no evidence for a bowel obstruction. The caliber and wall thickness of small and large bowel are normal. Anasarca is noted with body wall edema. Gastrostomy tube is in place. Calcified fibroid is incidentally noted. IMPRESSION: 1. Findings suggestive of extensive aspiration pneumonia within the bilateral lower lobes with small bilateral pleural effusions. Findings better depicted on the chest CT which will be reported separately. 2. Cholelithiasis with mild gallbladder distention. The findings do not strongly suggest acute cholecystitis however a right upper quadrant ultrasound could be obtained for further evaluation. 3. No bowel obstruction. No bowel wall thickening. 4. Body wall edema. ACT 112: Negative or not required by law. Electronically signed by: Regino Hayden M.D. 09/07/2022 4:36 PM Chest CTA 09/07/22 13:50 CT ANGIOGRAPHY OF THE CHEST, PULMONARY EMBOLUS PROTOCOL CLINICAL HISTORY: Fever. Tachycardia. Leukocytosis. COMPARISON STUDY: Chest radiograph September 02, 2022 and September 07, 2022. PET/CT June 06, 2022. TECHNIQUE: Following IV administration of 114 mL of Optiray, helical axial im ages of the chest were obtained utilizing the pulmonary embolus protocol. Maximal intensity projections and sagittal and coronal reformats were viewed on an independent 3D workstation. IV contrast was administered without complication. Automated exposure control was utilized for the study. A dose lowering technique was utilized adhering to the principles of ALARA. CT DOSE: 492.44 mGy.cm FINDINGS: Right internal jugular [id number] is in place. No enlarged axillary, mediastinal or hilar lymph nodes are present. The size of the heart is normal. There is no pericardial effusion. No thoracic aortic dissection is present. No pulmonary emboli are identified. Small bilateral pleural effusions, left larger than right, are noted. The right lower lobe is nearly entirely opacified. Note is made of extensive secretions within the right lower lobe bronchus extending into segmental bronchi of the right lower lobe. There are also extensive secretions within the left lower lobe bronchus with segmental left lower lobe airspace opacity. There are patchy additional airspace opacities within lungs. Mild emphysema is present. Left breast/chest wall edema is noted. This is new since prior PET/CT. This finding is partially imaged on this exam. The abdomen and pelvis CT will be reported separately. No suspicious lesions within the visualized bony thorax are identified. IMPRESSION: 1. No pulmonary emboli identified. 2. Near complete opacification of the right lower lobe with segmental left lower lobe airspace opacity. Given extensive secretions within the bilateral lower lobe bronchi, the findings suggest extensive aspiration pneumonia. 3. Small bilateral pleural effusions. 4. Emphysema. 5. Nonspecific left breast/chest wall edema/soft tissue thickening, partially imaged on this exam. This may be treatment related or represent asymmetric body wall edema. ACT 112: Negative or not required by law. Electronically signed by: Regino Hayden M.D. 09/07/2022 4:31 PM I & O Totals 24 Hours 09/07/22 09/08/22 09/09/22 06:59 06:59 06:59 Intake Total 770 / 770 730.000 / 730.000 Output Total 1105 / 1105 550 / 550 Balance -335 / -335 180.000 / 180.000 Cumulative 09/02/22 19:16 thru 09/08/22 06:00 Intake Total 3645.000 Output Total 3759 Balance -114.000 RT Ventilator Mngmt (Last Documented) Ventilator Ordered Settings Respiratory Rate 20 09/08/22 07:51 Fraction of Inspired Oxygen 4 09/03/22 03:00 Ventilator - PT Measurements Respiratory Rate 20 PG Care Time/CCT Total # of Minutes Spent Total Time Spent with Patient: Total time spent is greater than 50% in coordination of care (as documented) at patient's floor/unit and/or counseling patient: Coding Level of Care Code 92352 Initial Inpt Care Lvl 3 Diagnoses Pneumonia J18.9 Hypoxia R09.02 Acute respiratory failure with hypoxia J96.01
[2022-09-08] MEDS: HYDROCODONE/ACETAMOPHEN 5/325MG TAB PO PRN (12:31)
--- NOTE | 2022-09-08 15:25 | Hospitalist Progress Note ---
Date of Service September 08, 2022 Assessment & Plan (1) Pneumonia: Plan: WBC up to 41. Initially not convinced it was pneumonia given the extremely high leukocytosis, but CTA chest on 09/07 showed a very dense aspiration pneumonia in RLL. - Monitor cultures - Blood cultures from 09/02 negative so far. - MRSA swab for pneumonia was negative. - Improved WBC with treatment initially. -> Substantial worsening on 09/07. Broadened ceftriaxone to Zosyn. Discussed case with ID as well. Pulm consulted on 09/08. Will attempt to help pulmonary toilet as best as we can. -> Discussed with daughter as well. She does not want to see her mother suffer. Added lowest-dose Ativan able (0.25 mg) Q6h PRN for anxiety. We understand this may cause her to fall asleep and even reduce her ability to tolerate secretions, but her mother's condition at this point may be past recove ring, and she does not want her final time to be uncomfortable. (2) Weakness: Plan: Intense proximal muscle weakness which has gotten worse over the last 3 months. Many labs sent which have not truly pinpointed a cause though SUE is positive. 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 * CK, LDH normal * ESR, CRP elevated * Anti-SRP Ab ordered on 09/03 -> Pending results (it is a send out). * Large myositis Ab panel ordered on 09/05. * Muscle biopsy on 09/06 sent out. - Discussed with rheumatology on 09/03, 09/05, & 09/07. Will await results of send out labs and muscle biopsy, but given worsening respiratory failure and aspiration, she may be too weak for therapy. (3) Breast cancer: Plan: Hx of Stage III breast cancer. Now finished with chemoradiation and mastectomy. [facility]. - For pain control, continue acetaminophen & oxycodone - Discussed with Dr. oMrgan -> Bone scan on 09/06 without evidence of metastatic disease. (4) Hypertension: Plan: BP presently normal at 130/60. - Monitor; not on home meds (5) Vitamin B12 deficiency: Plan: Noted on prior admission. - Continue supplement (6) Severe protein-calorie malnutrition: Plan: Due to cancer, chemotherapy, and possible inflammatory disease. - S/p PEG tube in 01/[address] Go. - Continue home tube feeds and free water flushes as able. (7) DVT prophylaxis: Plan: SCDs - Hold heparin for now. Admission and Anticipated Discharge Date Admission Date: September 02, 2022 Subjective Very anxious in the morning. Coughing/throat clearing. Having trouble with secretions. Physical Exam Constitutional: WD/WN, vitals as above Eyes: EOM intact bilaterally; no conjunctival abnormality ENMT: external ear and nose normal, oropharynx normal Neck: trachea midline, no thyromegaly normal visual inspection Respiratory: + respiratory distress, + labored breathing, + retractions, + cough and + tachypneic Auscultation: + rhonchi Cardiovascular: Rate/Rhythm: regular rhythm and + tachycardic Heart Sounds: normal S1 and normal S2 Gastrointestinal (Abdomen): Inspection/Auscultation: abdomen normal to inspection; abdomen not distended Neurologic: moves all extremities and awake Psychiatric: Orientation: alert, oriented to person and cooperative Affect: + anxious affect Results & Data Results & Data ([facility]) Vital Signs (Past 12 Hours) Vital Signs Temp Pulse Pulse Resp BP Pulse Ox O2 Del Method 09/08/22 14:41 78 18 98 Nasal Cannula 09/08/22 12:29 84 26 H 95 Nasal Cannula 09/08/22 11:20 37.9 C H 104 H 20 134/62 97 Nasal Cannula 09/08/22 07:51 37.6 C H 108 H 20 133/63 95 Room Air 09/08/22 07:29 Nasal Cannula 09/08/22 07:16 104 H 09/08/22 07:18 84 26 H 95 Nasal Cannula 09/08/22 04:00 36.6 C 101 H 18 119/67 97 Nasal Cannula O2 Flow Rate 09/08/22 14:41 4 09/08/22 12:29 3 09/08/22 11:20 3 09/08/22 07:51 09/08/22 07:29 2 09/08/22 07:16 09/08/22 07:18 3 09/08/22 04:00 2 PG Care Time/CCT Total # of Minutes Spent Total Time Spent with Patient: Total time spent is greater than 50% in coordination of care (as documented) at patient's floor/unit and/or counseling patient: Coding Level of Care Code 16918 Subseq Hosp Care Lvl 3 Diagnoses Pneumonia J18.9 Weakness R53.1 Breast cancer C50.912 Breast location: unspecified site of breast Estrogen receptor status: unspecified Patient sex: female Laterality: left Hypertension I10 Hypertension type: primary hypertension Vitamin B12 deficiency E53.8 Severe protein-calorie malnutrition E43 DVT prophylaxis Z29.9 (1) Breast cancer Breast location: unspecified site of breast Estrogen receptor status: unspecified Patient sex: female Laterality: left Qualified Code(s): C50.912 - Malignant neoplasm of unspecified site of left female breast (2) Hypertension Hypertension type: primary hypertension Qualified Code(s): I10 - Essential (primary) hypertension
[2022-09-08] MEDS ORDERED: LORazepam 0.25 MG in SYRINGE 0 ML IV PRN (15:30)
[2022-09-08] MEDS: PEPTAMEN 1.5 CAL 1,000 ML BAG GT SCH (20:35)
[2022-09-08] MEDS: ACETAMINOPHEN SUSP 325 MG/10.15 ML UDC PEG PRN (21:20)
[2022-09-09] MEDS: TUBE FEEDING WATER FLUSH PEG SCH ×6 (00:15→21:37)
[2022-09-09] MEDS: PIPERACILLIN/TAZOBACTAM 3.375 GM in DEXTROSE 5% 100 ML IV SCH ×3 (00:15→16:06)
[2022-09-09] MEDS: GABAPENTIN 250 MG/5 ML 470 ML BTL PEG SCH ×3 (07:45→21:09)
[2022-09-09] MEDS: CYANOCOBALAMIN (B-12) 500 MCG TABLET PEG SCH (07:45)
[2022-09-09] MEDS: MAGNESIUM OXIDE 400 MG TAB PEG SCH ×2 (07:45→21:08)
[2022-09-09] MEDS: DULoxetine HCL 30 MG CAP PO SCH (07:45)
[2022-09-09] MEDS: LANSOPRAZOLE 15 MG SOLTAB PEG SCH (07:45)
[2022-09-09] MEDS: ALBUT/IPRATROP 3MG/0.5MG NEB 3 ML VIAL NEB SCH ×3 (08:04→22:42)
[2022-09-09 08:19] LABS: Hematocrit (blood only) 25.4 % (34.1-44.9); Hemoglobin 8.2 g/dl (12.0-16.0); Mean Corpuscular Hemoglobin 31.5 pg (25.0-34.0); Mean Corpuscular Hgb Conc 32.3 g/dL (32.0-36.0); Mean Corpuscular Volume 97.7 fL (80.0-100.0); RDW Coefficient of Variation 15.3 % (11.5-14.5); RDW Standard Deviation 54.6 fL (36.4-46.3); White Blood Count 12.46 K/ul (4.8-10.8)
[2022-09-09 08:34] LABS: BUN Creatinine Ratio 43.3 (10-20); Calcium 8.3 mg/dl (8.5-10.1); Creatinine Clr Calc Pharmacy 56.7 ml/min; Est GFR (African American) 101.1 ml/min; Est GFR (Non-African American) 87.2 ml/min; Magnesium 1.7 mg/dl (1.7-2.4); Potassium 3.9 mmol/L (3.5-5.1)
[2022-09-09] MEDS: [UNRECOGNIZED DRUG - REMARK] SCH (11:00)
--- NOTE | 2022-09-09 12:19 | Hospitalist Progress Note ---
Date of Service September 09, 2022 Assessment & Plan (1) Pneumonia: Plan: WBC up to 41. Initially not convinced it was pneumonia given the extremely high leukocytosis, but CTA chest on 09/07 showed a very dense aspiration pneumonia in RLL. - Monitor cultures - Blood cultures from 09/02 negative so far. - MRSA swab for pneumonia was negative. -> Substantial worsening on 09/07. Broadened ceftriaxone to Zosyn. Discussed case with ID as well. Pulm consulted on 09/08. Attempted pulmonary toilet as best as we can. - Improved on 09/09. Delirious, but breathing seems much easier. Secretions seem much better controlled. Continue with current plan. (2) Weakness: Plan: Intense proximal muscle weakness which has gotten worse over the last 3 months. Many labs sent which have not truly pinpointed a cause though SUE is positive. 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 * CK, LDH normal * ESR, CRP elevated * Anti-SRP Ab ordered on 09/03 -> Pending results (it is a send out). * Large myositis Ab panel ordered on 09/05. * Muscle biopsy on 09/06 sent out. - Discussed with rheumatology (Dr. Jackson) on 09/03, 09/05, & 09/07. Will await results of send out labs and muscle biopsy, but will need pneumonia under control before starting steroids and IVIg. Recommended starting with Solu-Medrol 125 mg IV BID when able. (3) Breast cancer: Plan: Hx of Stage III breast cancer. Now finished with chemoradiation and mastectomy. [facility]. - For pain control, continue acetaminophen & oxycodone - Discussed with Dr. Morgan -> Bone scan on 09/06 without evidence of metastatic disease. (4) Hypertension: Plan: BP presently normal at 155/70. - Monitor; not on home meds (5) Vitamin B12 deficiency: Plan: Noted on prior admission. - Continue supplement (6) Severe protein-calorie malnutrition: Plan: Due to cancer, chemotherapy, and possible inflammatory disease. - S/p PEG tube in 01/[address] Go. - Continue home tube feeds and free water flushes as able. (7) DVT prophylaxis: Plan: Lovenox 40 mg SQ daily (had been held in setting of muscle biopsy, but site looks good). Admission and Anticipated Discharge Date Admission Date: September 02, 2022 Subjective Very delirious this morning. Says her daughter has given her up. Asks me many times to take her home. When re-directed, she does accept that she is in a hospital, but insists she is in [facility]. When asked directly, reports no fevers/chills, chest pain, shortness of breath, abdominal pain, nausea, or vomiting. Physical Exam Constitutional: WD/WN, vitals as above Eyes: EOM intact bilaterally; no conjunctival abnormality ENMT: external ear and nose normal, oropharynx normal Neck: trachea midline, no thyromegaly normal visual inspection Respiratory: + labored breathing and + tachypneic; no respiratory distress Auscultation: + rhonchi Cardiovascular: RRR, no murmur, no edema Heart Sounds: normal S1 and normal S2 Gastrointestinal (Abdomen): Inspection/Auscultation: abdomen normal to inspection; abdomen not distended Neurologic: moves all extremities and awake Psychiatric: Orientation: alert, oriented to person and cooperative Affect: + anxious affect Results & Data Results & Data ([facility]) Vital Signs (Past 12 Hours) Vital Signs Temp Pulse Pulse Resp BP BP Pulse Ox 09/09/22 10:58 36.8 C 90 18 154/70 H 96 09/09/22 08:30 09/09/22 08:05 106 H 18 91 09/09/22 07:19 36.6 C 97 H 18 155/76 H 99 09/09/22 07:04 101 H 09/09/22 03:39 36.4 C L 86 16 137/65 97 O2 Del Method O2 Flow Rate 09/09/22 10:58 Room Air 09/09/22 08:30 Room Air 09/09/22 08:05 Room Air 09/09/22 07:19 Room Air 09/09/22 07:04 09/09/22 03:39 Nasal Cannula 3 PG Care Time/CCT Total # of Minutes Spent Total Time Spent with Patient: Total time spent is greater than 50% in coordination of care (as documented) at patient's floor/unit and/or counseling patient: Coding Level of Care Code 99645 Subseq Hosp Care Lvl 3 Diagnoses Pneumonia J18.9 Weakness R53.1 Breast cancer C50.912 Breast location: unspecified site of breast Estrogen receptor status: unspecified Patient sex: female Laterality: left Hypertension I10 Hypertension type: primary hypertension Vitamin B12 deficiency E53.8 Severe protein-calorie malnutrition E43 DVT prophylaxis Z29.9 (1) Breast cancer Breast location: unspecified site of breast Estrogen receptor status: unspecified Patient sex: female Laterality: left Qualified Code(s): C50.912 - Malignant neoplasm of unspecified site of left female breast (2) Hypertension Hypertension type: primary hypertension Qualified Code(s): I10 - Essential (primary) hypertension
[2022-09-09] MEDS: HEPARIN 100 UNIT/ML 5ML FLUSH FLUSH PRN (12:44)
[2022-09-09 13:38] LABS: Albumin Level 2.6 gm/dl (3.4-5.0); Bilirubin,Total 0.3 mg/dl (0.2-1.0); Total Protein 6.2 gm/dl (6.0-8.3)
[2022-09-09] MEDS: ACETAMINOPHEN SUSP 325 MG/10.15 ML UDC PEG PRN (14:13)
[2022-09-09] MEDS: PEPTAMEN 1.5 CAL 1,000 ML BAG GT SCH ×2 (21:36→21:38)
[2022-09-10] MEDS: TUBE FEEDING WATER FLUSH PEG SCH ×6 (00:28→21:37)
[2022-09-10] MEDS: PIPERACILLIN/TAZOBACTAM 3.375 GM in DEXTROSE 5% 100 ML IV SCH ×3 (00:32→16:31)
[2022-09-10] MEDS: HYDROCODONE/ACETAMOPHEN 5/325MG TAB PO PRN ×2 (00:33→10:03)
[2022-09-10] MEDS: LOPERAMIDE LIQUID 120 ML BOTTLE PO PRN (00:33)
[2022-09-10] MEDS: HEPARIN 100 UNIT/ML 5ML FLUSH FLUSH PRN ×2 (04:45→21:30)
[2022-09-10] MEDS: CYANOCOBALAMIN (B-12) 500 MCG TABLET PEG SCH (08:49)
[2022-09-10] MEDS: DULoxetine HCL 30 MG CAP PO SCH (08:49)
[2022-09-10] MEDS: LANSOPRAZOLE 15 MG SOLTAB PEG SCH (08:49)
[2022-09-10] MEDS: MAGNESIUM OXIDE 400 MG TAB PEG SCH ×2 (08:49→21:44)
[2022-09-10] MEDS: GABAPENTIN 250 MG/5 ML 470 ML BTL PEG SCH ×3 (08:52→21:44)
[2022-09-10] MEDS: ENOXAPARIN INJ 40 MG/0.4 ML SYR SQ SCH (09:06)
[2022-09-10 09:23] LABS: Hematocrit (blood only) 26.9 % (34.1-44.9); Mean Corpuscular Hemoglobin 31.3 pg (25.0-34.0); Mean Corpuscular Hgb Conc 33.5 g/dL (32.0-36.0); Mean Corpuscular Volume 93.4 fL (80.0-100.0); RDW Coefficient of Variation 14.8 % (11.5-14.5); RDW Standard Deviation 51.2 fL (36.4-46.3); Red Blood Count 2.88 M/uL (3.93-5.22); White Blood Count 10.87 K/ul (4.8-10.8)
[2022-09-10 10:27] LABS: Albumin Globulin Ratio 0.7 (0.9-2); Albumin Level 2.8 gm/dl (3.4-5.0); BUN Creatinine Ratio 38.1 (10-20); Bilirubin,Total 0.3 mg/dl (0.2-1.0); Calcium 8.8 mg/dl (8.5-10.1); Creatinine Clr Calc Pharmacy 60.3 ml/min; Est GFR (African American) 103.1 ml/min; Globulin 3.8 gm/dl (2.5-4.0); Magnesium 1.6 mg/dl (1.7-2.4); Potassium 3.7 mmol/L (3.5-5.1); Total Protein 6.6 gm/dl (6.0-8.3)
[2022-09-10] MEDS ORDERED: MAGNESIUM SULFATE / D5W 1 GM/100 ML BAG IV ONE (10:48)
[2022-09-10 11:03] LABS: Basophils # (auto) 0.07 K/uL (0-0.2); Basophils % (auto) 0.6 %; Eosinophils # (auto) 1.13 K/uL (0-0.50); Eosinophils % (auto) 10.4 %; Immature Granulocytes # (auto) 1.03 K/uL (0.00-0.02); Immature Granulocytes % (auto) 9.5 %; Lymphocytes # (auto) 0.82 K/uL (1.2-3.4); Lymphocytes % (auto) 7.5 %; Monocytes # (auto) 0.72 K/uL (0.24-0.82); Monocytes % (auto) 6.6 %; Neutrophils % (auto) 65.4 %; Polychromasia 1+
--- NOTE | 2022-09-10 12:09 | Hospitalist Progress Note ---
Date of Service September 10, 2022 Assessment & Plan (1) Acute respiratory failure with hypoxia: Plan: 2nd to b/l lower lobe pneumonia (see #2 below). Continues on NC O2. Repeat cxr today without complicating pulmonary edema. Has pleural effusions but no evidence of empyema or large parapneumonic effusion. (2) Bilateral pneumonia: Plan: b/l lower lobe, RLL>LLL. aspiration suspected. remains on zosyn IV. day #4 of such. marked leukocytosis has improved over the last few days but radiographically the RLL infiltrate has progressed. appreciate recent pulmonary consultation. recommend bronchodilators scheduled. will add steroids for bronchospastic component (has known h/o COPD from prior tobacco use). add robitussin q6h via PEG. recheck CRP am. (3) Myositis: Plan: During her 06/2022 to 07/2022 prolonged hospitalization she underwent an extensive work-up looking for her b/l LE weakness and back pain. Most of her weakness was of the hip girdle muscles. She underwent MRIs of the spine along with extensive blood work. She was on empiric steroids (Dexamethasone) at that time. CPK was mildly elevated but aldolase was wnl. CRP was 0. She was evaluated by [facility] during the prior hospitalization. Her LE weakness gradually improved during that hospital stay and she was walking nearly 100 feet by time of discharge. Studies for myasthenia gravis, autoimmune disease (SUE, etc), and other neurological conditions were dispatched. She had f/u with [facility] shortly after discharge. EMGs of all 4 limbs were being planned. Her weakness progressed over July into August; she ultimately was recently readmitted on 09/02/22. Prior attending, Dr Nur, dispatched additional blood tests for myositis earlier this stay (myositis-specific auto ab's). MRIs of b/l thighs showed significant inflammation of the thigh muscles. She underwent a right thigh muscle bx on 09/06/22 by general surgery; results still pending. 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 Thus, her proximal muscle weakness of the legs may be due to anti TIF-1 gamma antibody-positive DM. Rash of face/neck/chest may be dermatomyositis related. Although somewhat uncommon dysphagia can be a symptom of dermatomyositis as well. Recent positive SUE fits with her clinical picture. In light of progressive dysphagia and worsening prox muscle weakness - and overall clinical status continues to worsen - will start high-dose steroids -- solumedrol 125mg IV BID, first dose tonight. She may need IVIG treatment as well. Increase PPI to twice daily dosing for GI prophy while on high-dose steroids. Further guidance will be obtained once formal rheum consult with [facility] rheumatology has been completed. If malignancy-related dermatomyositis is indeed present is there still underlying active breast ca? CT chest/abd/pelvis does not show obvious recurrence or metastatic disease although there is thickening of the left chest wall in vicinity of prior mastectomy. Recent bone scan was negative for skeletal mets. Need for MRI brain? CT head recently neg for obvious mets. Recheck CRP in am. (4) Severe protein-calorie malnutrition: Plan: ongoing, present since spring 2021 in the setting of newly diagnosed breast ca and neoadjuvant chemo/radiation during that time period. s/p PEG tube placement 01/2022. remains on enteral nutrition via PEG (Peptamen 1.5). patient is currently NPO due to concern of ongoing dysphagia/aspiration. (5) Leukocytosis: Plan: severe at time of admission. records from heme/onc indicate she had been on a medrol-dose pack just prior to this admission. thus, part of the leukocytosis may have been steroid-related; part of the elevated wbc also likely due to severe pneumonia. WBC count normal today. repeat cbc in am. (6) Hypertension: Plan: severe. some of the BP elevation may be 2nd to pain/discomfort/agitation. regardless - metoprolol had been started in July. will resume metoprolol 25mg via PEG BID with first dose tonight. (7) Vitamin B12 deficiency: Plan: dx earlier this fall - level now improved (8) SUE positive: Plan: see #3 above (9) Hyponatremia: Plan: suspect SIADH baseline Na level about 130 Na today is 129 - acceptable daily BMP (10) Breast cancer: Plan: stage 3 at diagnosis s/p chemo/XRT last spring/summer, followed by mastectomy 06/[address]arias extensive CT imaging and bone scan without obvious recurrence/mets see discussion above (11) Chronic obstructive pulmonary disease: Plan: suspected schedule bronchodilators steroids supportive care (12) Acute metabolic encephalopathy: Plan: 2nd to pneumonia can't exclude other factors hold ativan supportive care (13) Dysphagia: Plan: progressive since earlier this fall extensive work-up -- speech therapy, ENT, GI, neurology all have been involved in her care etiology previously elusive now that 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 see above re: steroids, IVIG, etc rheum consult in am NPO (14) DVT prophylaxis: Plan: lovenox 40mg daily (15) Hypomagnesemia: Plan: replace IV mag sulfate repeat level am Plan left message for pt's daughter, Gilda, this evening on her voicemail will attempt to call her in am in light of fragile medical status, the concern for dermatomyositis, etc remains DNR/DNI Admission and Anticipated Discharge Date Admission Date: September 02, 2022 Subjective patient was sleeping upon my arrival. easily awoke to me calling her name. she was groggy but did recognize me from her stay in June/July. she coughed throughout the visit. she stated she felt weak. she was a little confused and at times couldn't get her sentences/words out. I was unable to get more history or ROS because she was so sleepy but she did state that her chest hurt with coughing. Review of Systems Review of Systems: Unobtainable due to cognitive status Physical Exam Physical Exam: gen - looks very ill, cachectic, mild tachypnea, groggy/sleepy; looks much more weak and sick than my last visit with her in early July mouth - MMM neck - no JVD heart - tachy, s1 s2 lungs - course BS b/l; decreased BS b/l bases; b/l wheezes; mild tachypnea chest - a-port clean abd - soft NT ND BS+; PEG tube in place; insertion site clean ext - trace edema, pulses 2+ b/l neuro - proximal muscle weakness of b/l hips (hip flexion, 3-4/5); distal strength b/l feet (dorsiflexion/plantarflexion 5/5) psych - groggy, mildly confused skin - erythematous rash over most of face, neck and chest Results & Data Results & Data ([facility]) Vital Signs (Past 12 Hours) Vital Signs Temp Pulse Pulse Resp BP BP Pulse Ox 09/10/22 11:12 36.9 C 103 H 18 184/89 H 91 09/10/22 10:26 96 09/10/22 09:57 100 H 24 172/86 H 88 L 09/10/22 08:25 102 H 09/10/22 07:54 36.5 C 90 18 178/91 H 98 09/10/22 04:16 09/10/22 02:51 36.8 C 105 H 18 157/73 H 93 O2 Del Method O2 Flow Rate 09/10/22 11:12 Nasal Cannula 2 09/10/22 10:26 Nasal Cannula 2 09/10/22 09:57 Room Air 09/10/22 08:25 09/10/22 07:54 Nasal Cannula 2 09/10/22 04:16 Room Air 09/10/22 02:51 Room Air Laboratory Results Laboratory Results - last 24 hr 09/10/22 09/10/22 09/10/22 09:07 09:07 09:07 WBC 10.87 H RBC 2.88 L Hgb 9.0 L Hct 26.9 L MCV 93.4 MCH 31.3 MCHC 33.5 RDW Std Deviation 51.2 H RDW Coeff of Emil 14.8 H Plt Count MPV Immature Gran % (Auto) 9.5 Neut % (Auto) 65.4 Lymph % (Auto) 7.5 Dickson % (Auto) 6.6 Eos % (Auto) 10.4 Baso % (Auto) 0.6 Neut # (Auto) 7.10 H Lymph # (Auto) 0.82 L Dickson # (Auto) 0.72 Eos # (Auto) 1.13 H Baso # (Auto) 0.07 Immature Gran # (Auto) 1.03 H Plt Count ,Citrate 202 Polychromasia 1+ Sodium 129 L Potassium 3.7 Chloride 91 L Carbon Dioxide 32 Anion Gap 6 BUN 24 H Creatinine 0.63 Est Cr Clr Drug Dosing 60.3 Est GFR ( Amer) 103.1 Est GFR (Non-Af Amer) 89.0 BUN/Creatinine Ratio 38.1 H Glucose 128 H Calcium 8.8 Magnesium 1.6 L Total Bilirubin 0.3 AST 40 H ALT 88 H Alkaline Phosphatase 160 H Total Protein 6.6 Albumin 2.8 L Globulin 3.8 Albumin/Globulin Ratio 0.7 L Diagnostic Findings Chest X-Ray 09/10/22 12:27 XR chest 1V portable HISTORY: b/l pneumonia, wheezes COMPARISON: Chest CTA 09/07/2022. FINDINGS: There is a right jugular Port-A-Cath which demonstrates at the SVC. The heart remains borderline enlarged. There are small bilateral pleural effusions with right greater than left lower lobe airspace opacities. This has slightly progressed on the right. Mild emphysema. No evidence for pulmonary edema. IMPRESSION: There are small bilateral pleural effusions with right greater than left lower lobe airspace opacities. This has slightly progressed on the right. ACT 112: Negative or not required by law. Electronically signed by: Nilton Quintanilla M.D. 09/10/2022 1:23 PM PG Care Time/CCT Total # of Minutes Spent Total Time Spent with Patient: Total time spent is greater than 50% in coordination of care (as documented) at patient's floor/unit and/or counseling patient: Coding Level of Care Code 20201 Subseq Hosp Care Lvl 3 Diagnoses Acute respiratory failure with hypoxia J96.01 Bilateral pneumonia J18.9 Myositis M60.9 Severe protein-calorie malnutrition E43 Leukocytosis D72.829 Hypertension I10 Hypertension type: primary hypertension Vitamin B12 deficiency E53.8 SUE positive R76.8 Hyponatremia E87.1 Breast cancer C50.912 Breast location: unspecified site of breast Estrogen receptor status: unspecified Patient sex: female Laterality: left Chronic obstructive pulmonary disease J44.9 Acute metabolic encephalopathy G93.41 Dysphagia R13.10 DVT prophylaxis Z29.9 Hypomagnesemia E83.42 (1) Hypertension Hypertension type: primary hypertension Qualified Code(s): I10 - Essential (primary) hypertension (2) Breast cancer Breast location: unspecified site of breast Estrogen receptor status: unspecified Patient sex: female Laterality: left Qualified Code(s): C50.912 - Malignant neoplasm of unspecified site of left female breast
[2022-09-10] MEDS: [UNRECOGNIZED DRUG - REMARK] SCH (12:56)
[2022-09-10] MEDS ORDERED: IPRATROPIUM BROMIDE/ALBUTEROL respimat INH INH SCH (13:00)
[2022-09-10] MEDS: methylPREDNISolone 30 MG in SYRINGE 0 ML IV SCH ×2 (13:15→21:29)
[2022-09-10] MEDS: guaiFENesin SUGAR FREE 100 MG/5 ML UDC GT SCH ×2 (13:15→17:12)
--- NOTE | 2022-09-10 13:24 | XRay Report ---
XR chest 1V portable HISTORY: b/l pneumonia, wheezes COMPARISON: Chest CTA 09/07/2022. FINDINGS: There is a right jugular Port-A-Cath which demonstrates at the SVC. The heart remains borde rline enlarged. There are small bilateral pleural effusions with right greater than left lower lobe a irspace opacities. This has slightly progressed on the right. Mild emphysema. No evidence for pulmona ry edema. IMPRESSION: There are small bilateral pleural effusions with right greater than left lower lobe airspace opacitie s. This has slightly progressed on the right. ACT 112: Negative or not required by law. Electronically signed by: Nilton Quintanilla M.D. 09/10/2022 1:23 PM
[2022-09-10] MEDS: IPRATROPIUM BROMIDE HFA INHALER INH SCH ×3 (15:30→20:14)
[2022-09-10] MEDS: ALBUTEROL HFA 8 GM INHALER INH SCH ×3 (15:30→20:13)
[2022-09-10] MEDS: ALBUT/IPRATROP 3MG/0.5MG NEB 3 ML VIAL NEB PRN (20:09)
[2022-09-10] MEDS ORDERED: diphenhydrAMINE 50 MG/ML VIAL IV STA (20:29)
[2022-09-10] MEDS: PEPTAMEN 1.5 CAL 1,000 ML BAG GT SCH (21:32)
[2022-09-10] MEDS: METOPROLOL TARTRATE 25 MG TAB OG SCH (21:44)
[2022-09-10] MEDS ORDERED: methylPREDNISolone 100 MG in SYRINGE 0 ML IV ONE (22:00)
[2022-09-11] MEDS: PIPERACILLIN/TAZOBACTAM 3.375 GM in DEXTROSE 5% 100 ML IV SCH ×3 (00:12→16:22)
[2022-09-11] MEDS: guaiFENesin SUGAR FREE 100 MG/5 ML UDC GT SCH ×4 (00:12→16:22)
[2022-09-11] MEDS: TUBE FEEDING WATER FLUSH PEG SCH ×6 (00:21→20:24)
[2022-09-11] MEDS ORDERED: GLYCOPYRROLATE 0.2 MG/ML VIAL IV STA (00:55)
[2022-09-11] MEDS ORDERED: IMMUNE GLOBULIN (HUMAN) SOLN IV ONE (08:14)
[2022-09-11] MEDS: methylPREDNISolone 125 MG in SYRINGE 0 ML IV SCH ×2 (08:32→20:25)
[2022-09-11] MEDS: CYANOCOBALAMIN (B-12) 500 MCG TABLET PEG SCH (08:32)
[2022-09-11] MEDS: LANSOPRAZOLE 30 MG SOLTAB PEG SCH ×2 (08:32→20:26)
[2022-09-11] MEDS: MAGNESIUM OXIDE 400 MG TAB PEG SCH ×2 (08:33→20:27)
[2022-09-11] MEDS: DULoxetine HCL 30 MG CAP PO SCH (08:33)
[2022-09-11] MEDS: ENOXAPARIN INJ 40 MG/0.4 ML SYR SQ SCH (08:33)
[2022-09-11] MEDS: METOPROLOL TARTRATE 25 MG TAB OG SCH (08:33)
[2022-09-11] MEDS: GABAPENTIN 250 MG/5 ML 470 ML BTL PEG SCH ×3 (08:37→20:30)
[2022-09-11 08:46] LABS: Base Excess VBG 11.8 mEq/L; HCO3 VBG 38 mmol/L; Oxygen Saturation VBG 81.5 %; PCO2 VBG 53 mmHg (38-50); PO2 VBG 49 mmHg; pH VBG 7.46 (7.36-7.41)
[2022-09-11 08:50] LABS: Hematocrit (blood only) 29.4 % (34.1-44.9); Hemoglobin 9.5 g/dl (12.0-16.0); Mean Corpuscular Hemoglobin 30.6 pg (25.0-34.0); Mean Corpuscular Hgb Conc 32.3 g/dL (32.0-36.0); Mean Corpuscular Volume 94.8 fL (80.0-100.0); RDW Coefficient of Variation 14.7 % (11.5-14.5); RDW Standard Deviation 50.7 fL (36.4-46.3); White Blood Count 6.76 K/ul (4.8-10.8)
[2022-09-11] MEDS ORDERED: IMMUN GLOBG(IGG)/MALT/IGA OV50 200 ML IV SCH (09:00)
[2022-09-11 09:45] LABS: Basophils # (manual) 0.07 K/uL (0-0.2); Basophils % (manual) 1 %; Lymphocytes # (manual) 0.61 K/uL (1.2-3.4); Lymphocytes % (manual) 9 %; Metamyelocytes # (manual) 0.14 K/uL (0-0); Metamyelocytes % (manual) 2 %; Monocytes # (manual) 0.27 K/uL (0.24-0.82); Monocytes % (manual) 4 %; Myelocytes % (manual) 3 %; Neutrophils # (manual) 5.41 K/uL (1.4-6.5); Neutrophils % (manual) 80 %; Platelet Estimate Normal (Normal)
[2022-09-11 09:59] LABS: Albumin Globulin Ratio 0.7 (0.9-2); Albumin Level 2.8 gm/dl (3.4-5.0); Bilirubin,Total 0.2 mg/dl (0.2-1.0); Calcium 8.1 mg/dl (8.5-10.1); Creatinine Clr Calc Pharmacy 61.3 ml/min; Est GFR (African American) 102.6 ml/min; Est GFR (Non-African American) 88.5 ml/min; Globulin 4.1 gm/dl (2.5-4.0); Magnesium 1.8 mg/dl (1.7-2.4); Total Protein 6.9 gm/dl (6.0-8.3)
[2022-09-11] MEDS: [UNRECOGNIZED DRUG - REMARK] SCH (11:25)
[2022-09-11] MEDS ORDERED: HYDROmorphone INJ 0.5 MG/0.5 ML SYR IV STA (19:56)
[2022-09-11] MEDS: PEPTAMEN 1.5 CAL 1,000 ML BAG GT SCH (20:24)
[2022-09-11] MEDS: METOPROLOL TARTRATE 50 MG TAB OG SCH (20:28)
--- NOTE | 2022-09-11 21:03 | Hospitalist Progress Note ---
Date of Service September 11, 2022 Assessment & Plan (1) Acute respiratory failure with hypoxia: Plan: 2nd to b/l lower lobe pneumonia (see #2 below). Continues on NC O2. Respiratory status looks a bit better today than yesterday, and much better relative to last weekend. Repeat cxr 09/10 without complicating pulmonary edema. Has pleural effusions but no evidence of empyema or large parapneumonic effusion. Cont NC o2, abx, Rx of #3/#4, etc. (2) Bilateral pneumonia: Plan: b/l lower lobe, RLL>LLL. aspiration suspected. remains on zosyn IV. day #5 of such. marked leukocytosis has improved over the last few days but radiographically the RLL infiltrate has progressed. appreciate recent pulmonary consultation. recommend bronchodilators scheduled. steroids for #3 will help COPD component/bronchospasm. cont robitussin q6h via PEG. recheck CRP am. (3) Myositis: Plan: During her 06/2022 to 07/2022 prolonged hospitalization she underwent an extensive work-up looking for her b/l LE weakness and back pain. Most of her weakness was of the hip girdle muscles. She underwent MRIs of the spine along with extensive blood work. She was on empiric steroids (Dexamethasone) at that time. CPK was mildly elevated but aldolase was wnl. CRP was 0. She was evaluated by [facility] during the prior hospitalization. Her LE weakness gradually improved during that hospital stay and she was walking nearly 100 feet by time of discharge. Studies for myasthenia gravis, autoimmune disease (SUE, etc), and other neur ological conditions were dispatched. She had f/u with [facility] Neurology shortly after discharge. EMGs of all 4 limbs were being planned. Her weakness progressed over July into August; she ultimately was recently readmitted on 09/02/22. Prior attending, Dr Nur, dispatched additional blood tests for myositis earlier this stay (myositis-specific auto ab's). MRIs of b/l thighs showed significant inflammation of the thigh muscles. She underwent a right thigh muscle bx on 09/06/22 by general surgery; results still pending. 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 This is highly associated with dermatomyositis and underlying malignancy. Thus, her proximal muscle weakness of the legs may be due to anti TIF-1 gamma antibody-positive DM. Rash of face/neck/chest/hands is likely dermatomyositis related. Dysphagia can be a symptom of dermatomyositis as well due to weakness of muscles of swallowing. Recent positive SUE fits with her clinical picture. In light of progressive dysphagia and worsening prox muscle weakness - and overall clinical status continuing to worsen -initiated high-dose steroids -- solumedrol 125mg IV BID PM of 09/10/22. IVIG x 5 days to be initiated today -- 20gm IV daily (2gm/kg spread over 5 days). Increased PPI to twice daily dosing for GI prophy while on high-dose steroids. The above care plan has been reviewed with [facility] Rheumatology, Dr Jackson, who plans to formally consult tomorrow on 09/12. If malignancy-related dermatomyositis is indeed present is there still underlying active breast ca? CT chest/abd/pelvis does not show obvious recurrence or metastatic disease although there is thickening of the left chest wall in vicinity of prior mastectomy. Recent bone scan was negative for skeletal mets. Need for MRI brain? CT head recently neg for obvious mets. Recheck CRP in am. In addition to coordinating/discussing care with rheumatology will discuss care with her primary oncologist tomorrow. (4) Dermatomyositis with respiratory involvement: Plan: see #3 above likely cause of progressive prox muscle weakness, dysphagia, rash, etc. rheum consult - [facility] rheum - requested (Dr Jackson) (5) SUE positive: Plan: see #3 above (6) Breast cancer: Plan: left sided stage 3 at diagnosis s/p chemo/XRT last spring/summer, followed by mastectomy 06/[address]arias extensive CT imaging and bone scan without obvious recurrence/mets although most recent CT chest with "thickening" of left chest wall noted see discussion above (7) Severe protein-calorie malnutrition: Plan: ongoing, present since spring 2021 in the setting of newly diagnosed breast ca and neoadjuvant chemo/radiation during that time period. s/p PEG tube placement 01/2022. remains on enteral nutrition via PEG (Peptamen 1.5). patient is currently NPO due to concern of ongoing dysphagia/aspiration. (8) Leukocytosis: Plan: severe at time of admission. records from heme/onc indicate she had been on a medrol-dose pack just prior to this admission. thus, part of the leukocytosis may have been steroid-related; part of the elevated wbc also likely due to severe pneumonia. WBC count normal today. repeat cbc in am. (9) Hypertension: Plan: severe. some of the BP elevation may be 2nd to pain/discomfort/agitation. regardless - metoprolol had been started in July. resumed metoprolol 25mg via PEG BID; due to ongoing high BPs will increase to 50mg BID (10) Vitamin B12 deficiency: Plan: dx earlier this fall - level now improved / normal (11) Hyponatremia: Plan: suspected SIADH baseline Na level about 130 Na today is 127, but correcting for high glucose it is 129-130 - acceptable daily BMP (12) Chronic obstructive pulmonary disease: Plan: suspected long standing tobacco history schedule bronchodilators steroids supportive care (13) Acute metabolic encephalopathy: Plan: 2nd to pneumonia can't exclude other factors hold ativan supportive care mental status improved today (14) Dysphagia: Plan: progressive since earlier this fall extensive work-up -- speech therapy, ENT, GI, neurology all have been involved in her care etiology previously elusive now that 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 see above re: steroids, IVIG, etc rheum consult in am NPO (15) DVT prophylaxis: Plan: lovenox 40mg daily (16) Hypomagnesemia: Plan: replaced resolved - level 1.8 today (17) Candidiasis of mouth and esophagus: Plan: start nystatin 5cc qid swish/spit Plan total care time today about 80 minutes - multiple phone calls/correspondence with family/consultants; bedside meeting this evening; multiple visits to pt's room; complex care coordination Admission and Anticipated Discharge Date Admission Date: September 02, 2022 Subjective early this am I called and spoke with pt's daughter explained that several aponte test results had returned pointing us towards dx of dermatomyositis; she confirmed with me she was coming in to see her mother laverne; family meeting scheduled for then I saw patient during AM rounds she c/o severe, thick tenacious sputum that is difficult to expectorate she continues to have a constant cough denies dyspnea at rest rash on hands/face improved today; hands less painful and less irritated 2nd bedside visit was about 1800 spent about 45 minutes during this 2nd visit reviewing all test results from last hospital stay and this hospital stay discussed suspected dx of dermatomyositis explained pathophys, association with cancer, treatment plan, rheum consult, etc explained that the suspected dermatomyositis is the likely cause of her dysphagia daughter agrees that rash on face/hands is improved today s/p IV steroids overnight patient reports tolerating the IVIG this am Review of Systems Review of Systems: gen - no fevers; remains very tired cv - chest pain/tightness/discomfort resolved pulm - cough, congested, copious sputum, mild dyspnea at times GI - no abd pain, no nausea musculo - ongoing pain and weakness of prox legs and shoulder regions psych - SEVERE insomnia Physical Exam Physical Exam: gen - looks ill, cachectic; much more awake/alert today; conversant; no distress today, but does have fits of coughing mouth - MMM, probable thrush plaques present oral mucosa voice - very hoarse & garbled neck - no JVD heart - RRR, s1 s2, no murmur lungs - course BS b/l; decreased BS b/l bases; b/l wheezes resolved today; no distress; tachypnea improved today chest - a-port clean abd - soft NT ND BS+; PEG tube in place; insertion site clean ext - trace edema, pulses 2+ b/l neuro - proximal muscle weakness of b/l hips (hip flexion, 3-4/5); distal strength b/l feet (dorsiflexion/plantarflexion 5/5); unable to fully lift arms past 75 degrees (prox muscle weakness shoulders) psych - more awake/alert today skin - erythematous rash over most of face, neck and chest IMPROVED; less intensely red; erythematous rash over hands - improved Results & Data Results & Data ([facility]) Vital Signs (Past 12 Hours) Vital Signs Temp Pulse Pulse Resp BP BP Pulse Ox 09/11/22 19:46 36.5 C 80 18 172/86 H 96 09/11/22 16:20 36.4 C 82 19 169/81 H 98 09/11/22 15:04 87 09/11/22 11:24 36.4 C L 77 16 173/72 H 100 O2 Del Method O2 Flow Rate 09/11/22 19:46 Nasal Cannula 2 09/11/22 16:20 Nasal Cannula 2 09/11/22 15:04 09/11/22 11:24 Nasal Cannula 6 Laboratory Results Laboratory Results - last 24 hr 09/11/22 09/11/22 09/11/22 08:12 08:12 08:12 WBC 6.76 RBC 3.10 L Hgb 9.5 L Hct 29.4 L MCV 94.8 MCH 30.6 MCHC 32.3 RDW Std Deviation 50.7 H RDW Coeff of Emil 14.7 H Plt Count MPV Neutrophils % (Manual) 80 Lymphocytes % (Manual) 9 Monocytes % (Manual) 4 Basophils % (Manual) 1 Metamyelocytes % (Man) 2 Myelocytes % (Man) 3 Neutrophils # (Manual) 5.41 Lymphocytes # (Manual) 0.61 L Monocytes # (Manual) 0.27 Basophils # (Manual) 0.07 Metamyelocytes # (Man) 0.14 H Myelocytes # (Manual) 0.20 H Platelet Estimate Normal Plt Count ,Citrate VBG pH 7.46 H VBG pCO2 53 H VBG pO2 49 VBG HCO3 38 VBG O2 Saturation 81.5 VBG Base Excess 11.8 Sodium 127 L Potassium 4.0 Chloride 89 L Carbon Dioxide 32 Anion Gap 6 BUN 32 H Creatinine 0.64 Est Cr Clr Drug Dosing 61.3 Est GFR ( Amer) 102.6 Est GFR (Non-Af Amer) 88.5 BUN/Creatinine Ratio 50.0 H Glucose 229 H POC Glucose Calcium 8.1 L Magnesium 1.8 Total Bilirubin 0.2 AST 32 ALT 68 H Alkaline Phosphatase 176 H Total Protein 6.9 Albumin 2.8 L Globulin 4.1 H Albumin/Globulin Ratio 0.7 L 09/11/22 09/11/22 09/11/22 08:12 11:32 11:33 WBC RBC Hgb Hct MCV MCH MCHC RDW Std Deviation RDW Coeff of Emil Plt Count MPV Neutrophils % (Manual) Lymphocytes % (Manual) Monocytes % (Manual) Basophils % (Manual) Metamyelocytes % (Man) Myelocytes % (Man) Neutrophils # (Manual) Lymphocytes # (Manual) Monocytes # (Manual) Basophils # (Manual) Metamyelocytes # (Man) Myelocytes # (Manual) Platelet Estimate Plt Count ,Citrate 239 VBG pH VBG pCO2 VBG pO2 VBG HCO3 VBG O2 Saturation VBG Base Excess Sodium Potassium Chloride Carbon Dioxide Anion Gap BUN Creatinine Est Cr Clr Drug Dosing Est GFR ( Amer) Est GFR (Non-Af Amer) BUN/Creatinine Ratio Glucose POC Glucose 245 H 257 H Calcium Magnesium Total Bilirubin AST ALT Alkaline Phosphatase Total Protein Albumin Globulin Albumin/Globulin Ratio PG Care Time/CCT Total # of Minutes Spent Total Time Spent with Patient: Total time spent is greater than 50% in coordination of care (as documented) at patient's floor/unit and/or counseling patient: Prolonged Care Time Prolonged Care Time: Yes Total Prolonged Care Time: 80 Coding Level of Care Code 98766 Subseq Hosp Care Lvl 3 (25 - SIGNIFICANT, SEPARATELY IDENTIFIABLE ) Diagnoses Acute respiratory failure with hypoxia J96.01 Bilateral pneumonia J18.9 Myositis M60.9 Dermatomyositis with respiratory involvement M33.91 SUE positive R76.8 Breast cancer C50.912 Breast location: unspecified site of breast Estrogen receptor status: unspecified Laterality: left Patient sex: female Severe protein-calorie malnutrition E43 Leukocytosis D72.829 Hypertension I10 Hypertension type: primary hypertension Vitamin B12 deficiency E53.8 Hyponatremia E87.1 Chronic obstructive pulmonary disease J44.9 Acute metabolic encephalopathy G93.41 Dysphagia R13.10 DVT prophylaxis Z29.9 Hypomagnesemia E83.42 Candidiasis of mouth and esophagus B37.81; B37.0 Additional Codes Prolonged Care Time - Prolonged Care Time: Yes ([id number]) (1) Breast cancer Breast location: unspecified site of breast Estrogen receptor status: unspecified Laterality: left Patient sex: female Qualified Code(s): C50.912 - Malignant neoplasm of unspecified site of left female breast (2) Hypertension Hypertension type: primary hypertension Qualified Code(s): I10 - Essential (primary) hypertension
[2022-09-12] MEDS: guaiFENesin SUGAR FREE 100 MG/5 ML UDC GT SCH ×4 (00:20→16:26)
[2022-09-12] MEDS: TUBE FEEDING WATER FLUSH PEG SCH ×6 (00:20→22:22)
[2022-09-12] MEDS: PIPERACILLIN/TAZOBACTAM 3.375 GM in DEXTROSE 5% 100 ML IV SCH ×3 (00:20→16:26)
[2022-09-12] MEDS: LOPERAMIDE LIQUID 120 ML BOTTLE PO PRN ×3 (05:41→22:26)
[2022-09-12] MEDS ORDERED: ACETAMINOPHEN 325 MG TAB PEG SCH (06:00)
[2022-09-12] MEDS: CYANOCOBALAMIN (B-12) 500 MCG TABLET PEG SCH (07:53)
[2022-09-12] MEDS: methylPREDNISolone 125 MG in SYRINGE 0 ML IV SCH ×2 (07:53→22:20)
[2022-09-12] MEDS: LANSOPRAZOLE 30 MG SOLTAB PEG SCH ×2 (07:53→22:22)
[2022-09-12] MEDS: MAGNESIUM OXIDE 400 MG TAB PEG SCH ×2 (07:53→22:23)
[2022-09-12] MEDS: DULoxetine HCL 30 MG CAP PO SCH (07:53)
[2022-09-12] MEDS: ENOXAPARIN INJ 40 MG/0.4 ML SYR SQ SCH (07:54)
[2022-09-12] MEDS: GABAPENTIN 250 MG/5 ML 470 ML BTL PEG SCH ×3 (07:57→22:20)
[2022-09-12] MEDS ORDERED: ACETAMINOPHEN 325 MG TAB PEG ONE (08:00)
[2022-09-12 08:02] LABS: Albumin Globulin Ratio 0.7 (0.9-2); Albumin Level 2.7 gm/dl (3.4-5.0); BUN Creatinine Ratio 72.1 (10-20); Bilirubin,Total 0.2 mg/dl (0.2-1.0); C Reactive Protein 1.84 mg/dl (0-0.5); Calcium 7.9 mg/dl (8.5-10.1); Creatinine Clr Calc Pharmacy 63.7 ml/min; Est GFR (African American) 104.2 ml/min; Est GFR (Non-African American) 89.9 ml/min; Potassium 3.4 mmol/L (3.5-5.1); Total Protein 6.7 gm/dl (6.0-8.3)
[2022-09-12] MEDS: NYSTATIN SUSP 500,000 U/5 ML UDC PO SCH ×4 (08:13→22:21)
[2022-09-12] MEDS ORDERED: IMMUNE GLOBULIN (HUMAN) SOLN IV ONE (08:30)
[2022-09-12] MEDS ORDERED: IMMUN GLOBG(IGG)/MALT/IGA OV50 200 ML IV ONE (08:30)
[2022-09-12 08:36] LABS: Estimated Average Glucose 114 mg/dl; Hemoglobin A1C 5.6 % (4.5-5.6)
[2022-09-12] MEDS ORDERED: INSULIN ASPART PER UNIT SC SCH (11:30)
[2022-09-12] MEDS: [UNRECOGNIZED DRUG - REMARK] SCH (12:19)
[2022-09-12] MEDS: METOPROLOL TARTRATE 50 MG TAB OG SCH ×2 (12:28→22:21)
[2022-09-12] MEDS: POTASSIUM CHLORIDE 20 MEQ/15 ML UDC PEG SCH (12:29)
[2022-09-12] MEDS: LANTUS PER UNIT CHARGE SQ SCH (12:54)
[2022-09-12] MEDS: INSULIN ASPART PER UNIT SC SCH ×2 (13:02→18:43)
--- NOTE | 2022-09-12 13:59 | Hospitalist Progress Note ---
Date of Service September 12, 2022 Assessment & Plan (1) Acute respiratory failure with hypoxia: Plan: 2nd to b/l lower lobe pneumonia (see #2 below). Continues on NC O2. Repeat cxr 09/10 without complicating pulmonary edema. Has pleural effusions but no evidence of empyema or large parapneumonic effusion. Cont NC o2, abx, etc (2) Bilateral pneumonia: Plan: b/l lower lobe, RLL>LLL. aspiration suspected. remains on zosyn IV. day #6 of such. marked leukocytosis resolved. cont bronchodilators scheduled. steroids for #3 will help COPD component/bronchospasm. cont robitussin q6h via PEG. CRP noted. (3) Myositis: Plan: During her 06/2022 to 07/2022 prolonged hospitalization she underwent an extensive work-up looking for her b/l LE weakness and back pain. Most of her weakness was of the hip girdle muscles. She underwent MRIs of the spine along with extensive blood work. She was on empiric steroids (Dexamethasone) at that time. CPK was mildly elevated but aldolase was wnl. CRP was 0. She was evaluated by [facility] during the prior hospitalization. Her LE weakness gradually improved during that hospital stay and she was walking nearly 100 feet by time of discharge. Studies for myasthenia gravis, autoimmune disease (SUE, etc), and other neurological conditions were dispatched. She had f/u with [facility] shortly after discharge. EMGs of all 4 limbs were being planned. Her weakness progressed over July into August; she ultimately was recently readmitted on 09/02/22. Prior attending, Dr Nur, dispatched additional blood tests for myositis earlier this stay (myositis-specific auto ab's). MRIs of b/l thighs showed significant inflammation of the thigh muscles. She underwent a right thigh muscle bx on 09/06/22 by general surgery; results still pending. 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 This is highly associated with dermatomyositis and underlying malignancy. Thus, her proximal muscle weakness of the legs may be due to anti TIF-1 gamma antibody-positive DM. Rash of face/neck/chest/hands is likely dermatomyositis related. Dysphagia can be a symptom of dermatomyositis as well due to weakness of muscles of swallowing. Recent positive SUE fits with her clinical picture. In light of progressive dysphagia and worsening prox muscle weakness - and overall clinical status continuing to worsen -initiated high-dose steroids -- solumedrol 125mg IV BID PM of 09/10/22. IVIG x 5 days started 09/12 -- 20gm IV daily (2gm/kg spread over 5 days). Increased PPI to twice daily dosing for GI prophy while on high-dose steroids. The above care plan has been reviewed with [facility] Rheumatology, Dr Jackson, who plans to formally consult today. If malignancy-related dermatomyositis is indeed present is there still underlying active breast ca? CT chest/abd/pelvis does not show obvious recurrence or metastatic disease although there is thickening of the left chest wall in vicinity of prior mastectomy. Recent bone scan was negative for skeletal mets. Need for MRI brain? CT head recently neg for obvious mets. (4) Dermatomyositis with respiratory involvement: Plan: see #3 above likely cause of progressive prox muscle weakness, dysphagia, rash, etc. rheum consult - [facility] rheum - requested (Dr Jackson) (5) SUE positive: Plan: see #3 above (6) Breast cancer: Plan: left sided stage 3 at diagnosis s/p chemo/XRT last spring/summer, followed by mastectomy 06/[address]arias extensive CT imaging and bone scan without obvious recurrence/mets although most recent CT chest with "thickening" of left chest wall noted see discussion above MRI brain while here to r/o brain mets (7) Severe protein-calorie malnutrition: Plan: ongoing, present since spring 2021 in the setting of newly diagnosed breast ca and neoadjuvant chemo/radiation during that time period. s/p PEG tube placement 01/2022. remains on enteral nutrition via PEG (Peptamen 1.5). patient is currently NPO due to concern of ongoing dysphagia/aspiration. (8) Leukocytosis: Plan: severe at time of admission - resolved records from heme/onc indicate she had been on a medrol-dose pack just prior to this admission. thus, part of the leukocytosis may have been steroid-related; part of the elevated wbc also likely due to severe pneumonia. (9) Hypertension: Plan: severe. some of the BP elevation may be 2nd to pain/discomfort/agitation. regardless - metoprolol had been started in July. cont metoprolol 50 BID (10) Vitamin B12 deficiency: Plan: dx earlier this fall - level now improved / normal (11) Hyponatremia: Plan: suspected SIADH baseline Na level about 130 Na today low but acceptable (12) Chronic obstructive pulmonary disease: Plan: suspected long standing tobacco history schedule bronchodilators steroids supportive care (13) Acute metabolic encephalopathy: Plan: 2nd to pneumonia can't exclude other factors hold ativan supportive care mental status improved / stable today (14) Dysphagia: Plan: progressive since earlier this fall extensive work-up -- speech therapy, ENT, GI, neurology all have been involved in her care etiology previously elusive now that 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 see above re: steroids, IVIG, etc rheum consult in am NPO (15) DVT prophylaxis: Plan: lovenox 40mg daily (16) Hypomagnesemia: Plan: replaced resolved but recheck level am tomorrow (17) Candidiasis of mouth and esophagus: Plan: start nystatin 5cc qid swish/spit Plan at her request d/c tele and move to med/surg PT, OT Admission and Anticipated Discharge Date Admission Date: September 02, 2022 Subjective no events overnight slept a little better after getting pain meds at bedtime she feels about the same as yesterday - no better, no worse tele overnight wnl cough/congestion the same no fevers remains on NC O2 Review of Systems Review of Systems: gen - no fevers or chills; very tired/fatigued cv - no current cp pulm - no dyspnea at rest GI - no abd pain or vomiting Physical Exam Physical Exam: gen - looks ill, cachectic; looks the same as yesterday mouth - MMM, probable thrush plaques present oral mucosa voice - very hoarse & garbled neck - no JVD heart - RRR, s1 s2, no murmur lungs - course BS b/l; decreased BS b/l bases; no distress; occasional rales bases chest - a-port clean abd - soft NT ND BS+; PEG tube in place; insertion site clean ext - trace edema, pulses 2+ b/l neuro - proximal muscle weakness of b/l hips and shoulders - no change psych - awake/alert skin - erythematous rash over most of face, neck and chest simliar to yesterday Results & Data Results & Data ([facility]) Vital Signs (Past 12 Hours) Vital Signs Temp Pulse Pulse Resp BP Pulse Ox O2 Del Method 09/12/22 07:35 36.6 C 68 19 127/76 98 Nasal Cannula 09/12/22 07:08 69 09/12/22 03:20 36.5 C 69 18 158/73 H 97 Nasal Cannula O2 Flow Rate 09/12/22 07:35 2 09/12/22 07:08 09/12/22 03:20 2 Laboratory Results Laboratory Results - last 24 hr 09/12/22 09/12/22 07:23 07:23 Sodium 127 L Potassium 3.4 L Chloride 90 L Carbon Dioxide 30 Anion Gap 7 BUN 44 H Creatinine 0.61 Est Cr Clr Drug Dosing 63.7 Est GFR ( Amer) 104.2 Est GFR (Non-Af Amer) 89.9 BUN/Creatinine Ratio 72.1 H Glucose 219 H Estimat Average Glucose 114 Hemoglobin A1c 5.6 Calcium 7.9 L Total Bilirubin 0.2 AST 35 ALT 60 H Alkaline Phosphatase 140 H C-Reactive Protein 1.84 H Total Protein 6.7 Albumin 2.7 L Globulin 4.0 Albumin/Globulin Ratio 0.7 L PG Care Time/CCT Total # of Minutes Spent Total Time Spent with Patient: Total time spent is greater than 50% in coordination of care (as documented) at patient's floor/unit and/or counseling patient: Coding Level of Care Code 61588 Subseq Hosp Care Lvl 3 Diagnoses Acute respiratory failure with hypoxia J96.01 Bilateral pneumonia J18.9 Myositis M60.9 Dermatomyositis with respiratory involvement M33.91 SUE positive R76.8 Breast cancer C50.912 Breast location: unspecified site of breast Estrogen receptor status: unspecified Laterality: left Patient sex: female Severe protein-calorie malnutrition E43 Leukocytosis D72.829 Hypertension I10 Hypertension type: primary hypertension Vitamin B12 deficiency E53.8 Hyponatremia E87.1 Chronic obstructive pulmonary disease J44.9 Acute metabolic encephalopathy G93.41 Dysphagia R13.10 DVT prophylaxis Z29.9 Hypomagnesemia E83.42 Candidiasis of mouth and esophagus B37.81; B37.0 (1) Breast cancer Breast location: unspecified site of breast Estrogen receptor status: unspecified Laterality: left Patient sex: female Qualified Code(s): C50.912 - Malignant neoplasm of unspecified site of left female breast (2) Hypertension Hypertension type: primary hypertension Qualified Code(s): I10 - Essential (primary) hypertension
--- NOTE | 2022-09-12 16:56 | Rheumatology Consultation ---
Rheumatology Consultation DOS September 12, [address] Velez Reason for Consultation Myositis Assessment & Plan (1) Myositis: This patient has profound weakness and MRI of the thighs confirm inflammatory muscle changes consistent with myositis. Biopsy is pending but with her cutaneous changes especially notable at the hands, the strong positive TIF 1 gamma, and her concomitant (rather recently diagnosed) breast cancer, this patient has inflammatory myositis most consistent with dermatomyositis. Malignancy associated with myositis is more strongly associated with dermatomyositis rather than polymyositis. TIF 1 gamma has a strong association with malignancy in dermatomyositis patients. Unfortunately, malignancy with myositis can confer a more challenging treatment course. I recommend consideration for rehab placement to work on continued PT and strengthening activities as I suspect her muscles have sustained a significant insult. Treatment has already been initiated and agree with steroids plus IVIG. Regarding steroids, recommend completing 3 days of IV Solu-Medrol then switched to p.o. prednisone 50 mg for 2 weeks, then reduce to 40 mg for 2 weeks. Continue IVIG at 2 g/kilogram every 4 weeks administered over 4 or 5 days. I would like to see her in my office in 3 to 4 weeks but if this is not possible, recommend her treating providers contact me for additional guidance regarding prednisone dosing. Please contact me with any additional questions or concerns. Thank you for this referral. Please feel free to contact me with any questions or concerns. Portions of this note were generated with [employer] voice recognition software. History of Present Illness Attending Physician: Se Hernandez History of Present Illness This is a 71-year-old woman who was admitted on 09/02/2022 with worsening shortness of breath and weakness resulting in ambulatory dysfunction. In December 2021, she noticed enlargement and redness to her left breast. She pursued evaluation with her primary care provider which resulted in the ordering of a mammogram. This was suspicious for underlying malignancy and evaluation by oncology confirmed diagnosis of breast cancer. In January 2022, she initiated chemotherapy which concluded in May. After her initial chemotherapy treatment, she was admitted due to concerns for upper GI bleed, bacteremia, and failure to thrive. There is also documentation of a facial rash. She had a PEG tube placed during that presentation. She underwent mastectomy in June and shortly after, she began noticing worsening weakness. Prior to the mastectomy, she felt as if she was not as strong as she normally was and her daughter was concerned that she was not moving around as much contributing to deconditioning. She also began noticing that her voice seemed to be a bit weaker over the summer during her chemotherapy and she began having difficulty swallowing to the point that diet was changed to liquids. She reports that eating pizza became a "sore." Patient notes that she was hospitalized in early July secondary to widespread joint pain. Upon discharge to home, she continued to get weaker and weaker to the point that she had difficulty transferring and ambulating independently. She was admitted on 09/02 and antibiotics were initiated. Evaluation of her weakness revealed significant proximal weakness prompting concern for underlying myositis. MRI was pursued revealing inflammatory changes within the musculature which led to a biopsy which is pending. Myositis lab work was sent off and recently came back with strong positive TIF 1 gamma. Patient has been started on Solu-Medrol as well as 2 g/kilogram IVIG. She denies history consistent with Raynaud's. She denies shortness of breath. She has had occasional cough from time to time. She denies chest pain. Denies nausea or vomiting. Occasional loose stools which she feels started after she began her Solu-Medrol. She has noted some difficulty with discoloration on the backs of her hands and she has even had some discomfort and she points to her MCP regions. She reports that her daughter thought that there was a rash on her thighs but patient has not seen any of these changes. Allergies Allergy/AdvReac Type Severity Reaction Status Date / Time pistachio nut AdvReac Severe Red face Verified 09/02/22 21:15 and hands ~ Throwing up Home Medications Medication Instructions Recorded Confirmed Type albuterol sulfate 90 mcg/actuation 2 inh inhalation QID PRN shortness 08/03/22 09/02/22 Rx aerosol inhaler of breath or wheezing or cough #8.5 grams cyanocobalamin (vitamin B-12) 500 1,000 mcg PEG QAM #30 tabs 08/03/22 09/02/22 Rx mcg tablet nut.tx.impaired digest fxn 0.068 1,000 ml G-tube DAILY@1999 #1,000 08/03/22 09/02/22 Rx gram-1.5 kcal/mL oral liquid mL (Peptamen 1.5) polyethylene glycol 3350 17 17 g PO DAILY PRN Constipation 08/23/22 09/02/22 History gram/dose oral powder (Miralax) tramadol 50 mg tablet 50 mg feeding tube Q6H PRN Pain 08/23/22 09/02/22 History acetaminophen 325 mg tablet 650 mg feeding tube BID 09/02/22 09/02/22 History (Tylenol) duloxetine 30 mg capsule,delayed 30 mg DAILY 09/02/22 09/02/22 History release gabapentin 300 mg capsule 300 mg feeding tube TID 09/02/22 09/02/22 History lansoprazole 15 mg delayed 15 mg feeding tube DAILY 09/02/22 09/02/22 History release,disintegrating tablet levofloxacin 500 mg tablet 500 mg feeding tube QPM 09/02/22 09/02/22 History magnesium oxide 400 mg feeding tube BID 09/02/22 09/02/22 History ondansetron HCl 8 mg tablet 8 mg feeding tube Q8H PRN 09/02/22 09/02/22 History NAUSEA/VOMITING oxycodone 5 mg tablet 5 mg feeding tube .Q4-6HR PRN Pain 09/02/22 09/02/22 History Patient History Medical History (Updated 09/12/22 @ 16:48 by Arnel Jackson DO) Breast cancer Chronic obstructive pulmonary disease Constipation Dysphagia Elevated AST (SGOT) Former smoker Hypertension Hyponatremia Leg weakness, bilateral Low back pain Malignant neoplasm of central portion of left breast in female, estrogen receptor negative (01/04/22) Pancytopenia Peripheral neuropathy Port-A-Cath in place Severe protein-calorie malnutrition Surgical History (Updated 09/07/22 @ 11:23 by Surekha Holland RN) Encounter for biopsy (09/06/22) Right quadriceps muscle biopsy. Dr. Baumann History of left mastectomy Hx of tonsillectomy PEG (percutaneous endoscopic gastrostomy) status Family History Mother Hypertension Sister Hypertension Brother Hypertension Father Lung cancer Social History Smoking Status: Current some day smoker Tobacco Type: Cigarettes Cigarettes Per Day: 3; Second Hand Exposure: No; Hx Alcohol Use: No Hx Substance Use: No Preferred Language: Portuguese Communication Ability: Effective Hearing Ability: Normal Bioinformatics Assistant Required: No Beliefs That Will Affect Care: None marital status: / Current Living Situation: Family current occupational status: retired How many Children do You have: 1 Feels Safe at Home: Yes Diet Comment: Peg tube feeds, Boost daily; small amounts orally during the past year weight has: decreased > 10 lbs Dental Care, Regularly: Yes Physical Activity Frequency: Does not Exercise Seatbelt Use: always Do you think of yourself as: straight/heterosexual Gender Identity: Female Assistive Devices: Cane, Glasses and Walker Review of Systems Review of Systems: Currently denies fevers. Denies history consistent with Raynaud's. Occasional cough. Denies shortness of breath. Denies chest pain. Denies nausea or vomiting. Denies dark or black stools. Occasional loose stool since starting steroids. Physical Exam Physical Exam: General: Alert and oriented. No acute distress Eyes: Pupils are equal. Extraocular muscles intact. Mouth: No oral sores Neck: Supple, no adenopathy Cardiovascular: Heart regular rate and rhythm, S1 and S2 noted Pulmonary: Clear to auscultation bilaterally Abdomen: Soft, nontender. Positive bowel sounds. No palpable masses. Extremities: No pitting edema noted Skin: Redness to violaceous discoloration across her MCPs and proximal phalange s. There is some slight redness upper anterior chest. I do not see obvious holster sign or rash across the upper back/shoulders. Musculoskeletal: No synovitis. No effusions. No joint erythema. Patient is able to only slightly left knee off of bed 2-3/5 bilaterally with 4/5 strength at the ankles. 34/5 in flexion at the elbows but 3/5 with extension at the elbows. She had difficulty flexing at the neck and raising her head off of the pillow. Results & Data ([facility]) Vital Signs (Past 12 Hours) Vital Signs Temp Pulse Pulse Resp BP Pulse Ox O2 Del Method 09/12/22 15:25 63 09/12/22 07:35 36.6 C 68 19 127/76 98 Nasal Cannula 09/12/22 07:08 69 O2 Flow Rate 09/12/22 15:25 09/12/22 07:35 2 09/12/22 07:08 Laboratory Results TIF 1 gamma: Greater than 100 (less than 11) Aldolase: 7.7 CK: 69 On 09/03/2022 and 290 on 07/22/2022 Diagnostic Findings MRI of femurs, 09/04/2022: FINDINGS: LEFT: This study is not tailored to assess the intrinsic structures of the hip or knee. No acute fracture, dislocation, osseous erosion or avascular necrosis identified. Imaged intrapelvic structures are unremarkable. There is extensive diffuse subcutaneous, intramuscular and fascial edema. There is only mild muscle atrophy. No intramuscular fluid collection. No acute tendon tear identified. Trace joint effusion of the knee. RIGHT: This study is not tailored to assess the intrinsic structures of the hip or knee. No acute fracture, dislocation, osseous erosion or avascular necrosis identified. Imaged intrapelvic structures are unremarkable. There is extensive diffuse subcutaneous, intramuscular and fascial edema. There is only mild muscle atrophy. No intramuscular fluid collection. No acute tendon tear identified. Trace joint effusion of the knee. IMPRESSION: 1. Motion degraded exam. No acute fracture or bone marrow edema. 2. Extensive subcutaneous and intramuscular edema of the bilateral thigh and pelvic musculature is compatible with a nonspecific myositis. No abscess. Reviewed notes from heme-onc, 08/28/2022: Chemotherapy initiated 01/25/2022 and ended on 05/17/2022 Mastectomy with left axillary lymph node dissection 06/26/2022 PG Care Time/CCT Total # of Minutes Spent Total Time Spent with Patient: Total time spent is greater than 50% in coordination of care (as documented) at patient's floor/unit and/or counseling patient: Coding Level of Care Code 86535 Inpt Consult Level 4 Diagnoses Myositis M60.9
[2022-09-12] MEDS: PEPTAMEN 1.5 CAL 1,000 ML BAG GT SCH (22:22)
[2022-09-13] MEDS: guaiFENesin SUGAR FREE 100 MG/5 ML UDC GT SCH ×5 (00:03→23:56)
[2022-09-13] MEDS: HYDROCODONE/ACETAMOPHEN 5/325MG TAB PO PRN (00:03)
[2022-09-13] MEDS: PIPERACILLIN/TAZOBACTAM 3.375 GM in DEXTROSE 5% 100 ML IV SCH ×4 (00:03→23:55)
[2022-09-13] MEDS: INSULIN ASPART PER UNIT SC SCH ×5 (00:09→23:59)
[2022-09-13] MEDS: TUBE FEEDING WATER FLUSH PEG SCH ×6 (05:20→17:02)
[2022-09-13 06:59] LABS: Cdiff Toxin B Gene (2yr or >) Positive Cdiff Gene (Neg)
[2022-09-13 07:38] LABS: Cdiff Antigen Positive; Cdiff Toxin A+B Negative Cdiff Toxin (Negative)
[2022-09-13] MEDS ORDERED: IMMUN GLOBG(IGG)/MALT/IGA OV50 200 ML IV SCH (09:00)
[2022-09-13 09:39] LABS: BUN Creatinine Ratio 81.4 (10-20); Creatinine Clr Calc Pharmacy 65.8 ml/min; Est GFR (African American) 105.4 ml/min; Est GFR (Non-African American) 90.9 ml/min; Magnesium 1.6 mg/dl (1.7-2.4); Potassium 3.4 mmol/L (3.5-5.1)
[2022-09-13] MEDS: ENOXAPARIN INJ 40 MG/0.4 ML SYR SQ SCH (09:53)
[2022-09-13] MEDS: methylPREDNISolone 125 MG in SYRINGE 0 ML IV SCH ×2 (10:04→22:45)
[2022-09-13] MEDS: POTASSIUM CHLORIDE 20 MEQ/15 ML UDC PEG SCH (10:04)
[2022-09-13] MEDS: LANTUS PER UNIT CHARGE SQ SCH (10:21)
[2022-09-13] MEDS: ALBUT/IPRATROP 3MG/0.5MG NEB 3 ML VIAL NEB PRN ×2 (10:36→17:46)
--- NOTE | 2022-09-13 10:53 | XRay Report ---
XR chest 1V portable CLINICAL HISTORY: Respiratory distress. COMPARISON STUDY: Chest CT September 07, 2022 and chest radiograph September 10, 2022. FINDINGS: Right internal Bhokig-z-Frno is in place. There is no pneumothorax. Interstitial prominence is unchanged. Cardiomediastinal silhouette is stable. Bibasilar consolidation is again noted. Right basilar consolidation has mildly improved. Small bilateral pleural effusions are again noted. IMPRESSION: 1. Bibasilar consolidation suggestive of pneumonia or aspiration pneumonitis. Moderate progression ri ght basilar consolidation. 2. No significant change in small bilateral pleural effusions. ACT 112: Negative or not required by law. Electronically signed by: Regino Hayden M.D. 09/13/2022 10:51 AM
[2022-09-13] MEDS ORDERED: ENOXAPARIN INJ 60 MG/0.6 ML SYR SQ STA (11:08)
[2022-09-13] MEDS: HEPARIN 100 UNIT/ML 5ML FLUSH FLUSH PRN (11:11)
--- NOTE | 2022-09-13 11:13 | Hospitalist Progress Note ---
Date of Service September 13, 2022 Assessment & Plan (1) Acute respiratory failure with hypoxia: Plan: 2nd to b/l lower lobe pneumonia, mucoid impaction of bronchi especially on right, RML collapse, ?pulmonary edema, and emphysema. WORSE Today as detailed in this note. Acute PE(s) have been ruled out. Progressive mucoid impaction with RML collapse in already diseased lungs with severe b/l pneumonia has led us to this point. Cannot rule out element of pulmonary edema. Appreciate pulmonary consultation & recs - Plan - * CPAP or HFNC, or combination of two (CPAP at HS, HFNC during day) * postural changes to help with mucoid impaction - lay on left side if possible * add saline nebs bid * add xopenex/atrovent nebs qid * lasix 20mg IV x 1 * lovenox 50mg SC x 1 given - of note, patient had been refusing her lovenox on multiple occasions of late * cont high-dose IV steroids * cont zosyn IV * cough assist device, if and when possible and off CPAP * robitussin via PEG q6h She is very poor candidate for bronchoscopy (therapeutic) to rid her airways of mucoid impaction. Likely to end up on vent, and she is DNR/DNI. Await formal echo results. (2) Bilateral pneumonia: Plan: b/l lower lobe, RLL/RML>LLL. aspiration. overall clinically worse (see above) due to progressive mucoid impaction. patient unable to expectorate any sputum due to severe muscle weakness from her dermatomyositis. remains on zosyn IV. day #7 of such. cont zosyn. (3) Myositis: Plan: During her 06/2022 to 07/2022 prolonged hospitalization she underwent an extensive work-up looking for her b/l LE weakness and back pain. Most of her weakness was of the hip girdle muscles. She underwent MRIs of the spine along with extensive blood work. She was on empiric steroids (Dexamethasone) at that time. CPK was mildly elevated but aldolase was wnl. CRP was 0. She was evaluated by [facility] during the prior hospitalization. Her LE weakness gradually improved during that hospital stay and she was walking nearly 100 feet by time of discharge. Studies for myasthenia gravis, autoimmune disease (SUE, etc), and other neurological conditions were dispatched. She had f/u with [facility] shortly after discharge. EMGs of all 4 limbs were being planned. Her weakness progressed over July into August; she ultimately was recently readmitted on 09/02/22. Prior attending, Dr Nur, dispatched additional blood tests for myositis earlier this stay (myositis-specific auto ab's). MRIs of b/l thighs showed significant inflammation of the thigh muscles. She underwent a right thigh muscle bx on 09/06/22 by general surgery; results still pending. 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 This is highly associated with dermatomyositis and underlying malignancy. Thus, her proximal muscle weakness of the legs may be due to anti TIF-1 gamma antibody-positive DM. Rash of face/neck/chest/hands is likely dermatomyositis related. Dysphagia can be a symptom of dermatomyositis as well due to weakness of muscles of swallowing. Recent positive SUE fits with her clinical picture. In light of progressive dysphagia and worsening prox muscle weakness - and overall clinical status continuing to worsen -initiated high-dose steroids -- Solumedrol 125mg IV BID PM of 09/10/22. IVIG x 5 days started 09/12 -- 20gm IV daily (2gm/kg spread over 5 days). Increased PPI to twice daily dosing for GI prophy while on high-dose steroids. The above care plan has been reviewed with [facility], Dr Jackson, who consulted formally - appreciate his consult & recs. If malignancy-related dermatomyositis is indeed present is there still underlying active breast ca? CT chest/abd/pelvis does not show obvious recurrence or metastatic disease although there is thickening of the left chest wall in vicinity of prior maste ctomy. Recent bone scan was negative for skeletal mets. Need for MRI brain? CT head recently neg for obvious mets. I spoke with Dr Morgan from oncology today - if patient ever were to stabilize wo uld pursue brain MRI but simply not possible at this time given #1 above. Prognosis very poor given the severity of her dermatomyositis and progressive respiratory issues. (4) Dermatomyositis with respiratory involvement: Plan: see #3 above cause of progressive prox muscle weakness, dysphagia, rash, etc. rheum consult by Dr Jackson appreciated (5) SUE positive: Plan: see #3 above (6) Breast cancer: Plan: left sided stage 3 at diagnosis s/p chemo/XRT last spring/summer, followed by mastectomy 06/[address]arias extensive CT imaging and bone scan without obvious recurrence/mets although most recent CT chest with "thickening" of left chest wall noted see discussion above MRI brain if and when possible but too sick at this time to pursue (7) Severe protein-calorie malnutrition: Plan: ongoing, present since spring 2021 in the setting of newly diagnosed breast ca and neoadjuvant chemo/radiation during that time period. s/p PEG tube placement 01/2022. remains on enteral nutrition via PEG (Peptamen 1.5). patient is currently NPO due to concern of ongoing dysphagia/aspiration. place feedings on hold while on CPAP (8) Leukocytosis: Plan: severe at time of admission - resolved records from heme/onc indicate she had been on a medrol-dose pack just prior to this admission. thus, part of the leukocytosis may have been steroid-related; part of the elevated wbc also likely due to severe pneumonia. (9) Hypertension: Plan: severe. some of the BP elevation may be 2nd to pain/discomfort/agitation. regardless - metoprolol had been started in July. cont metoprolol 50 BID (10) Vitamin B12 deficiency: Plan: dx earlier this fall - level now improved / normal (11) Hyponatremia: Plan: suspected SIADH baseline Na level about 130 Na today low but acceptable (12) Chronic obstructive pulmonary disease: Plan: suspected long standing tobacco history schedule bronchodilators steroids supportive care (13) Acute metabolic encephalopathy: Plan: 2nd to pneumonia can't exclude other factors hold ativan supportive care mental status has improved this week (14) Dysphagia: Plan: progressive since earlier this fall extensive work-up -- speech therapy, ENT, GI, neurology all have been involved in her care etiology previously elusive dx likely due to dermatomyositis with oropharyngeal muscle involvement see above re: steroids, IVIG, etc NPO (15) DVT prophylaxis: Plan: lovenox 40mg daily - will encourage her to take this every day (gave 50mg today while we were waiting for CTA chest) (16) Hypomagnesemia: Plan: replace IV mag repeat level later in the day - wnl (17) Candidiasis of mouth and esophagus: Plan: nystatin 5cc qid swish/spit if unable to take change to diflucan 100mg daily via PEG (18) Volume overload: Plan: suspected lasix 20mg IV x 1 echo pending may need additional diuresis tomorrow Plan updated pt's daughter twice today plan of care discussed extensively with her total critical care time today - 75 minutes, including management of #1, #2, #3; coordination of care with Dr Lyles from pulmonary; multiple bedside visits, etc today's events constituted a life-threatening event Admission and Anticipated Discharge Date Admission Date: September 02, 2022 Subjective was contacted by nursing staff this am that patient had previously been on 2 L NC O2 and acutely developed severe dyspnea with such her O2 sats dropped to the low 80s and quickly required 10 L via oxymask asked that respiratory give her a neb and place her on highflow NC upon arrival the patient was in distress she was tachypneic, retracting, and using accessory muscles respiratory was preparing to place her on HFNC despite the neb she had little relief of her symptoms she was complained of b/l chest tightness and some pleuritic component as well quick lung exam revealed no wheezes, decreased BS bases, and fair airation superiorly with severe respiratory distress HFNC was applied with 100% FiO2 despite such her O2 sats only climbed to the early 80s ox[address] was place over the high-flow I briefly left the room and called Dr Lyles from pulmonary - he would come to bedside urgently he asked for CTA chest & lovenox 1mg/kg stat; I called pharmacy for latter and they would send up immediately EKG - my reading - unchanged from prior EKG; nothing to suggest acute PE, acute ACS upon return the patient's o2 sats were only mid 80s at best on maxed out high- flow settings respiratory was still present and we discussed changing to CPAP this was done shortly after and o2 sats finally improved to >90% with improved work of breathing Dr Lyles was at bedside who performed STAT bedside echo to look at RV; he reported the RV was functioning well grossly arguing against massive or submassive PE(s) CTA chest was obtained subsequently - no PE; b/l pneumonia; RML collapse; severe mucoid impaction especially on right; small effusions; emphysema I called and updated her daughter Gilda with all of today's events later in the afternoon the patient was transferred to PCU I checked on her once transferred and unfortunately attempts to wean the CPAP were unsuccessful she needed to be placed back on such with higher pressure she voiced that she was very anxious and uncomfortable and scared Review of Systems Review of Systems: gen - feels warm/diaphoretic cv - chest tightness pulm - dyspneic at rest, in distress GI - no pain psych - anxious Physical Exam Physical Exam: gen - severe respiratory distress - retractions, accessory muscle use, tachypnea, anxiety, diaphoresis mouth - MMM voice - low-pitched & very difficult to understand neck - no JVD heart - tachy, s1 s2, no murmur lungs - decreased BS b/l bases; severe distress as above; no wheeze; course BS b/l; airation fair at best chest - a-port clean abd - soft NT ND BS+ ext - trace edema, pulses 2+ b/l psych - anxious skin - erythematous rash over most of face, neck and chest - no change Results & Data Results & Data ([facility]) Vital Signs (Past 12 Hours) Vital Signs Temp Pulse Resp BP Pulse Ox O2 Del Method O2 Flow Rate 09/13/22 10:41 91 Oxymask 10 09/13/22 10:36 80 22 92 Oxymask 10 09/13/22 10:00 70 20 177/85 H 83 L Nasal Cannula 2 09/13/22 05:39 36.5 C 70 16 167/76 H 92 Nasal Cannula 2 09/12/22 23:17 36.6 C 67 20 164/76 H 97 Nasal Cannula 2 Laboratory Results Laboratory Results - last 24 hr 09/13/22 09/13/22 09/13/22 05:17 05:42 08:31 WBC RBC Hgb Hct MCV MCH MCHC RDW Std Deviation RDW Coeff of Emil Plt Count MPV Immature Gran % (Auto) Neut % (Auto) Lymph % (Auto) [place] % (Auto) Eos % (Auto) Baso % (Auto) Neut # (Auto) Lymph # (Auto) [place] # (Auto) Eos # (Auto) Baso # (Auto) Immature Gran # (Auto) Plt Count ,Citrate D-Dimer VBG pH VBG pCO2 VBG pO2 VBG HCO3 VBG O2 Saturation VBG Base Excess Sodium 128 L Potassium 3.4 L Chloride 91 L Carbon Dioxide 31 Anion Gap 6 BUN 48 H Creatinine 0.59 L Est Cr Clr Drug Dosing 65.8 Est GFR ( Amer) 105.4 Est GFR (Non-Af Amer) 90.9 BUN/Creatinine Ratio 81.4 H Glucose 196 H POC Glucose 230 H Calcium 8.0 L Magnesium 1.6 L Troponin I High Sens B-Natriuretic Peptide Stl C. diff Tox B Gene Positive Cdiff Gene H Stl C.difficile Tox A&B Negative Cdiff Toxin 09/13/22 09/13/22 09/13/22 10:21 12:05 12:05 WBC 10.59 RBC 3.01 L Hgb 9.5 L Hct 28.4 L MCV 94.4 MCH 31.6 MCHC 33.5 RDW Std Deviation 50.4 H RDW Coeff of Emil 14.6 H Plt Count MPV Immature Gran % (Auto) 4.5 Neut % (Auto) 80.1 Lymph % (Auto) 4.8 [place] % (Auto) 10.4 Eos % (Auto) 0.0 Baso % (Auto) 0.2 Neut # (Auto) 8.48 H Lymph # (Auto) 0.51 L [place] # (Auto) 1.10 H Eos # (Auto) 0.00 Baso # (Auto) 0.02 Immature Gran # (Auto) 0.48 H Plt Count ,Citrate D-Dimer 1930 H* VBG pH VBG pCO2 VBG pO2 VBG HCO3 VBG O2 Saturation VBG Base Excess Sodium Potassium Chloride Carbon Dioxide Anion Gap BUN Creatinine Est Cr Clr Drug Dosing Est GFR ( Amer) Est GFR (Non-Af Amer) BUN/Creatinine Ratio Glucose POC Glucose 230 H Calcium Magnesium Troponin I High Sens B-Natriuretic Peptide Stl C. diff Tox B Gene Stl C.difficile Tox A&B 09/13/22 09/13/22 09/13/22 12:05 12:05 12:05 WBC RBC Hgb Hct MCV MCH MCHC RDW Std Deviation RDW Coeff of Emil Plt Count MPV Immature Gran % (Auto) Neut % (Auto) Lymph % (Auto) [place] % (Auto) Eos % (Auto) Baso % (Auto) Neut # (Auto) Lymph # (Auto) [place] # (Auto) Eos # (Auto) Baso # (Auto) Immature Gran # (Auto) Plt Count ,Citrate 293 D-Dimer VBG pH VBG pCO2 VBG pO2 VBG HCO3 VBG O2 Saturation VBG Base Excess Sodium Potassium Chloride Carbon Dioxide Anion Gap BUN Creatinine Est Cr Clr Drug Dosing Est GFR ( Amer) Est GFR (Non-Af Amer) BUN/Creatinine Ratio Glucose POC Glucose Calcium Magnesium Troponin I High Sens 8.7 B-Natriuretic Peptide 148 H Stl C. diff Tox B Gene Stl C.difficile Tox A&B 09/13/22 09/13/22 09/13/22 12:42 16:47 18:20 WBC RBC Hgb Hct MCV MCH MCHC RDW Std Deviation RDW Coeff of Emil Plt Count MPV Immature Gran % (Auto) Neut % (Auto) Lymph % (Auto) [place] % (Auto) Eos % (Auto) Baso % (Auto) Neut # (Auto) Lymph # (Auto) [place] # (Auto) Eos # (Auto) Baso # (Auto) Immature Gran # (Auto) Plt Count ,Citrate D-Dimer VBG pH VBG pCO2 VBG pO2 VBG HCO3 VBG O2 Saturation VBG Base Excess Sodium 127 L Potassium 3.5 Chloride 88 L Carbon Dioxide 30 Anion Gap 9 BUN 44 H Creatinine 0.64 Est Cr Clr Drug Dosing 60.7 Est GFR ( Amer) 102.6 Est GFR (Non-Af Amer) 88.5 BUN/Creatinine Ratio 68.8 H Glucose 153 H POC Glucose 213 H 189 H Calcium 8.6 Magnesium 2.3 Troponin I High Sens B-Natriuretic Peptide Stl C. diff Tox B Gene Stl C.difficile Tox A&B 09/13/22 09/13/22 18:20 23:58 WBC RBC Hgb Hct MCV MCH MCHC RDW Std Deviation RDW Coeff of Emil Plt Count MPV Immature Gran % (Auto) Neut % (Auto) Lymph % (Auto) [place] % (Auto) Eos % (Auto) Baso % (Auto) Neut # (Auto) Lymph # (Auto) [place] # (Auto) Eos # (Auto) Baso # (Auto) Immature Gran # (Auto) Plt Count ,Citrate D-Dimer VBG pH 7.41 VBG pCO2 58 H VBG pO2 52 VBG HCO3 37 VBG O2 Saturation 83.3 VBG Base Excess 9.9 Sodium Potassium Chloride Carbon Dioxide Anion Gap BUN Creatinine Est Cr Clr Drug Dosing Est GFR ( Amer) Est GFR (Non-Af Amer) BUN/Creatinine Ratio Glucose POC Glucose 154 H Calcium Magnesium Troponin I High Sens B-Natriuretic Peptide Stl C. diff Tox B Gene Stl C.difficile Tox A&B Diagnostic Findings Chest X-Ray 09/13/22 10:15 XR chest 1V portable CLINICAL HISTORY: Respiratory distress. COMPARISON STUDY: Chest CT September 07, 2022 and chest radiograph September 10, 2022. FINDINGS: Right internal [id number] is in place. There is no pneumothorax. Interstitial prominence is unchanged. Cardiomediastinal silhouette is stable. Bibasilar consolidation is again noted. Right basilar consolidation has mildly improved. Small bilateral pleural effusions are again noted. IMPRESSION: 1. Bibasilar consolidation suggestive of pneumonia or aspiration pneumonitis. Moderate progression right basilar consolidation. 2. No significant change in small bilateral pleural effusions. ACT 112: Negative or not required by law. Electronically signed by: Regino Hayden M.D. 09/13/2022 10:51 AM Chest CTA 09/13/22 11:07 CHEST CTA for PULMONARY ARTERIES CT DOSE: 253.30 mGy.cm HISTORY: Respiratory distress. TECHNIQUE: Multiaxial CT images of the chest were performed following the intravenous administration of contrast to evaluate the pulmonary arteries. Max imal intensity projection images were also obtained. A dose lowering technique was utilized adhering to the principles of ALARA. COMPARISON STUDY: Chest CTA 09/07/2022. FINDINGS: The ascending thoracic aorta measures up to 3.7 cm in diameter. No evidence for an aortic dissection. The heart is normal in size. No filling defect within the pulmonary arteries to suggest a pulmonary embolus. Biapical pleural-parenchymal scarlike densities remain unchanged. Emphysema again noted. No pneumothorax. Small patchy groundglass and nodular densities within the lower lobes are again noted. This most pronounced within the right lower lobe. Small amount of mucoid material within the trachea. Near-complete opacification of the bilateral lower lobe and right middle lobe bronchi which has progressed in the interval. This could be due to aspiration. There is near complete atelectasis of the right middle lobe which is new from the prior study. Consolidation within the bilateral lower lobes posteriorly favors a combination of compressive atelectasis from the small to moderate bilateral pleural effusions and a pneumonia. The pleural effusions are similar in size. No CT evidence for pulmonary edema. No mediastinal or hilar lymphadenopathy. The visualized liver and spleen are unremarkable. Mild nonspecific fat stranding seen within the left upper quadrant. This is only partially imaged on this study. Mild body wall edema is noted. A right subclavian Port-A-Cath terminates in the SVC. IMPRESSION: 1. No evidence for a pulmonary embolus. 2. Progressive mucoid opacification of the bilateral lower lobe and right middle lobe bronchi with near complete atelectasis of the right middle lobe. Persistent bibasilar airspace opacities. Therefore, these findings favor an aspiration pneumonitis. 3. No significant change in the small to moderate bilateral pleural effusions. 4. Emphysema. 5. Additional findings as described above. ACT 112: Negative or not required by law. Electronically signed by: Nilton Quintanilla M.D. 09/13/2022 12:15 PM PG Care Time/CCT Total # of Minutes Spent Total Time Spent with Patient: Total time spent is greater than 50% in coordination of care (as documented) at patient's floor/unit and/or counseling patient: Critical Care Time: Yes Total Critical Care Time: 75 Coding Level of Care Code None Diagnoses Acute respiratory failure with hypoxia J96.01 Bilateral pneumonia J18.9 Myositis M60.9 Dermatomyositis with respiratory involvement M33.91 SUE positive R76.8 Breast cancer C50.912 Breast location: unspecified site of breast Estrogen receptor status: unspecified Laterality: left Patient sex: female Severe protein-calorie malnutrition E43 Leukocytosis D72.829 Hypertension I10 Hypertension type: primary hypertension Vitamin B12 deficiency E53.8 Hyponatremia E87.1 Chronic obstructive pulmonary disease J44.9 Acute metabolic encephalopathy G93.41 Dysphagia R13.10 DVT prophylaxis Z29.9 Hypomagnesemia E83.42 Candidiasis of mouth and esophagus B37.81; B37.0 Volume overload E87.70 Additional Codes Critical Care Time - Critical Care Time: Yes ([id number]) Comment critical care time 75 minutes (1) Breast cancer Breast location: unspecified site of breast Estrogen receptor status: unspecified Laterality: left Patient sex: female Qualified Code(s): C50.912 - Malignant neoplasm of unspecified site of left female breast (2) Hypertension Hypertension type: primary hypertension Qualified Code(s): I10 - Essential (primary) hypertension
--- NOTE | 2022-09-13 11:44 | Pulmonary Consultation ---
Date of Consultation September 13, 2022 Assessment & Plan (1) Acute and chronic respiratory failure with hypoxia: (2) Myositis: (3) Dermatomyositis with respiratory involvement: (4) Chronic obstructive pulmonary disease: (5) Pneumonia: (6) Pleural effusion: Plan -- Acute on chronic hypoxic respiratory failure Etiology is most likely aspiration pneumonia Given the sudden worsening in oxygen requirement, possibility of pulmonary embolism versus total collapse of the lung Continue with CPAP for the time being Patient might benefit from CoughAssist -- Bilateral pleural effusion Etiology is likely hypoalbuminemia Continue with tube feeds No need for any intervention Diuresis as needed --Stage III breast cancer S/p mastectomy --Dermatomyositis Getting IVIG and high-dose Solu-Medrol IVIG also predisposes once to get clots -- DNR/DNI --Prophylaxis VTE: Lovenox GI: Lansoprazole Lines: Right-sided Port-A-Cath, peripheral, positive Skinner Diet: Tube feeds Plan: Bedside echo does not show any signs of RV overload. EF seems to be normal There is bilateral pleural effusion with mild pericardial effusion, possibility of large PE is low. Mucous plugging is high in the possibility. 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 Follow BNP, troponin Follow-up official 2D echo CoughAssist Plan was discussed with Dr. Hernandez I have personally spent 60 minutes of critical care time in the direct management of this patient. This is a life/limb threatening event. This includes time spent evaluating patient, direct bedside care, chart review, placing orders, interpretation of diagnostic studies, discussion with consultants, patient, and family members, as well as other required patient management activities. This time is exclusive of all separately billable procedures, and teaching time and separate from and in addition to any other critical care service time. Please note the above document was generated using voice recognition software. It may contain grammatical, syntax or spelling errors. History of Present Illness Attending Physician: Se Hernandez History of Present Illness 71-year-old female who has been in the hospital for failure to thrive and aspiration pneumonia Past medical history: Left-sided breast cancer stage III s/p mastectomy, COPD, chronic hypoxic respiratory failure, recently diagnosed dermatomyositis on IVIG Patient was found to be more hypoxic. She was on 100% high flow and still saturating in the mid to high 80s. ICU was consulted as there was a possibility of pulmonary embolism and significant deterioration in her oxygen requirement as patient has been refusing Lovenox. Patient was seen by Dr. Dubon on 09/08/2022, note reviewed Patient has been getting antibiotics since admission. She is also getting IVIG as well as high-dose Solu-Medrol At the time of examination patient systolic blood pressure was 192, heart rate was in the 90s, saturation was 89 on high flow, she was just put on CPAP. On putting the CPAP of 6 her saturation significantly improved to 99% on and we were able to titrate down FiO2 to 60% on CPAP She complains of generalized body ache. She is very frail appearing. She was in respiratory distress Denied any headache, no nausea vomiting She was anxious Patient is C. difficile antigen positive but no active diarrhea Social history: Previous smoker Allergies Allergy/AdvReac Type Severity Reaction Status Date / Time pistachio nut AdvReac Severe Red face Verified 09/02/22 21:15 and hands ~ Throwing up Home Medications Medication Instructions Recorded Confirmed Type albuterol sulfate 90 mcg/actuation 2 inh inhalation QID PRN shortness 08/03/22 09/02/22 Rx aerosol inhaler of breath or wheezing or cough #8.5 grams cyanocobalamin (vitamin B-12) 500 1,000 mcg PEG QAM #30 tabs 08/03/22 09/02/22 Rx mcg tablet nut.tx.impaired digest fxn 0.068 1,000 ml G-tube DAILY@1999 #1,000 08/03/22 Rx gram-1.5 kcal/mL oral liquid mL (Peptamen 1.5) polyethylene glycol 3350 17 17 g PO DAILY PRN Constipation 08/23/22 09/02/22 History gram/dose oral powder (Miralax) tramadol 50 mg tablet 50 mg feeding tube Q6H PRN Pain 08/23/22 09/02/22 History acetaminophen 325 mg tablet 650 mg feeding tube BID 09/02/22 09/02/22 History (Tylenol) duloxetine 30 mg capsule,delayed 30 mg DAILY 09/02/22 09/02/22 History release gabapentin 300 mg capsule 300 mg feeding tube TID 09/02/22 09/02/22 History lansoprazole 15 mg delayed 15 mg feeding tube DAILY 09/02/22 09/02/22 History release,disintegrating tablet levofloxacin 500 mg tablet 500 mg feeding tube QPM 09/02/22 09/02/22 History magnesium oxide 400 mg feeding tube BID 09/02/22 09/02/22 History ondansetron HCl 8 mg tablet 8 mg feeding tube Q8H PRN 09/02/22 09/02/22 History NAUSEA/VOMITING oxycodone 5 mg tablet 5 mg feeding tube .Q4-6HR PRN Pain 09/02/22 09/02/22 History Patient History Medical History (Updated 09/13/22 @ 11:41 by Robel Lyles MD, [facility]) Breast cancer Chronic obstructive pulmonary disease Constipation Dysphagia Elevated AST (SGOT) Former smoker Hypertension Hyponatremia Leg weakness, bilateral Low back pain Malignant neoplasm of central portion of left breast in female, estrogen receptor negative (01/04/22) Pancytopenia Peripheral neuropathy Port-A-Cath in place Severe protein-calorie malnutrition Surgical History (Updated 09/07/22 @ 11:23 by Surekha Hollnad RN) Encounter for biopsy (09/06/22) Right quadriceps muscle biopsy. Dr. 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 Required: No Beliefs That Will Affect Care: None marital status: / Current Living Situation: Family current occupational status: retired How many Children do You have: 1 Feels Safe at Home: Yes Diet Comment: Peg tube feeds, Boost daily; small amounts orally during the past year weight has: decreased > 10 lbs Dental Care, Regularly: Yes Physical Activity Frequency: Does not Exercise Seatbelt Use: always Do you think of yourself as: straight/heterosexual Gender Identity: Female Assistive Devices: Cane, Glasses and Walker Review of Systems Review of Systems: All systems reviewed & are unremarkable except as noted in HPI & below Physical Exam Physical Exam: Constitutional: No acute distress, frail-appearing HEENT: EOMI, PERRLA Respiratory system: Decreased air entry bilaterally, no wheeze, no rhonchi, positive crackles bilateral lower lobes CVS: S1-S2 positive, no murmurs or gallops, tachycardia Abdomen: Soft, nontender, nondistended, positive bowel sounds x4, positive PEG Extremities: +2 pulses bilaterally radialis/ dorsalis pedis, no cyanosis, no edema Neuro: Awake alert oriented x3 Psych: Anxious mood and affect G/U: Positive Skinner Musculoskeletal: Left-sided mastectomy scar Skin: no rashes, warm and dry Lymphatic: no cervical or axillary lymphadenopathy Results & Data Results & Data ([facility]) Vital Signs (Past 12 Hours) Vital Signs Temp Pulse Resp BP Pulse Ox O2 Del Method O2 Flow Rate 09/13/22 10:41 91 Oxymask 10 09/13/22 10:36 80 22 92 Oxymask 10 09/13/22 10:00 70 20 177/85 H 83 L Nasal Cannula 2 09/13/22 05:39 36.5 C 70 16 167/76 H 92 Nasal Cannula 2 09/12/22 23:17 36.6 C 67 20 164/76 H 97 Nasal Cannula 2 Laboratory Results 09/11/22 08:12 09/13/22 08:31 PG Care Time/CCT Total # of Minutes Spent Total Time Spent with Patient: Total time spent is greater than 50% in coordination of care (as documented) at patient's floor/unit and/or counseling patient: Coding Level of Care Code Critical Care 1st 30-74 mins Diagnoses Acute and chronic respiratory failure with hypoxia J96.21 Myositis M60.9 Dermatomyositis with respiratory involvement M33.91 Chronic obstructive pulmonary disease J44.9 Pneumonia J18.9 Pleural effusion J90 Time Spent (min) 60
[2022-09-13] MEDS ORDERED: OPTIRAY 320 500ml IV ONE (11:48)
[2022-09-13] MEDS ORDERED: FUROSEMIDE INJ 20 MG/2 ML VIAL IV ONE (12:09)
--- NOTE | 2022-09-13 12:16 | CT Scan Report ---
CHEST CTA for PULMONARY ARTERIES CT DOSE: 253.30 mGy.cm HISTORY: Respiratory distress. TECHNIQUE: Multiaxial CT images of the chest were performed following the intravenous administration of contrast to evaluate the pulmonary arteries. Maximal intensity projection images were also obtaine d. A dose lowering technique was utilized adhering to the principles of ALARA. COMPARISON STUDY: Chest CTA 09/07/2022. FINDINGS: The ascending thoracic aorta measures up to 3.7 cm in diameter. No evidence for an aortic d issection. The heart is normal in size. No filling defect within the pulmonary arteries to suggest a pulmonary embolus. Biapical pleural-parenchymal scarlike densities remain unchanged. Emphysema again noted. No pneumothorax. Small patchy groundglass and nodular densities within the lower lobes are aga in noted. This most pronounced within the right lower lobe. Small amount of mucoid material within th e trachea. Near-complete opacification of the bilateral lower lobe and right middle lobe bronchi whic h has progressed in the interval. This could be due to aspiration. There is near complete atelectasis of the right middle lobe which is new from the prior study. Consolidation within the bilateral lower lobes posteriorly favors a combination of compressive atelectasis from the small to moderate bilater al pleural effusions and a pneumonia. The pleural effusions are similar in size. No CT evidence for p ulmonary edema. No mediastinal or hilar lymphadenopathy. The visualized liver and spleen are unremark able. Mild nonspecific fat stranding seen within the left upper quadrant. This is only partially imag ed on this study. Mild body wall edema is noted. A right subclavian Port-A-Cath terminates in the SVC . IMPRESSION: 1. No evidence for a pulmonary embolus. 2. Progressive mucoid opacification of the bilateral lower lobe and right middle lobe bronchi with ne ar complete atelectasis of the right middle lobe. Persistent bibasilar airspace opacities. Therefore, these findings favor an aspiration pneumonitis. 3. No significant change in the small to moderate bilateral pleural effusions. 4. Emphysema. 5. Additional findings as described above. ACT 112: Negative or not required by law. Electronically signed by: Nilton Quintanilla M.D. 09/13/2022 12:15 PM
[2022-09-13] MEDS: CYANOCOBALAMIN (B-12) 500 MCG TABLET PEG SCH (12:35)
[2022-09-13] MEDS: LANSOPRAZOLE 30 MG SOLTAB PEG SCH ×2 (12:35→22:26)
[2022-09-13] MEDS: GABAPENTIN 250 MG/5 ML 470 ML BTL PEG SCH ×3 (12:35→22:26)
[2022-09-13] MEDS: DULoxetine HCL 30 MG CAP PO SCH (12:35)
--- NOTE | 2022-09-13 12:35 | Procedure Note ---
Procedure Note Date of Service September 13, 2022 Note Bedside Ultrasound: Lung: Left:- moderate left-sided pleural effusion with dependent atelectasis of the left lower lobe, B-lines anteriorly and posteriorly Right:-Small to moderate right-sided pleural effusion with dependent atele ctasis, B-lines anteriorly and posteriorly Heart: RVOT normal in size, fair EF, mild pericardial effusion Abdomen: No ascites Please note the above document was generated using voice recognition software. It may contain grammatical, syntax or spelling errors.Any formal questions or concerns about the content, text or information contained within the body of this dictation should be directly addressed to the provider for clarification. Coding CPT Codes Pulmonary/Thoracic - Pulmonary and Thoracic: 53599 US, Chest, real time with imaging documentation ([id number]) [facility] [place]) Pulmonary/Thoracic Procedure 1: Pulmonary and Thoracic: 92277 US, Chest, real time with imaging documentation
[2022-09-13] MEDS: METOPROLOL TARTRATE 50 MG TAB OG SCH ×2 (12:36→22:26)
[2022-09-13] MEDS: NYSTATIN SUSP 500,000 U/5 ML UDC PO SCH ×4 (12:36→22:26)
[2022-09-13] MEDS: MAGNESIUM OXIDE 400 MG TAB PEG SCH ×2 (12:36→22:26)
[2022-09-13] MEDS: [UNRECOGNIZED DRUG - REMARK] SCH (12:36)
[2022-09-13 12:40] LABS: D Dimer 1930 ug/L FEU (0-500)
[2022-09-13] MEDS ORDERED: POTASSIUM CHLORIDE CRTAB 20 MEQ TABCR PO STA (12:55)
[2022-09-13 13:01] LABS: Basophils # (auto) 0.02 K/uL (0-0.2); Basophils % (auto) 0.2 %; Hematocrit (blood only) 28.4 % (34.1-44.9); Hemoglobin 9.5 g/dl (12.0-16.0); Immature Granulocytes # (auto) 0.48 K/uL (0.00-0.02); Immature Granulocytes % (auto) 4.5 %; Lymphocytes # (auto) 0.51 K/uL (1.2-3.4); Lymphocytes % (auto) 4.8 %; Mean Corpuscular Hemoglobin 31.6 pg (25.0-34.0); Mean Corpuscular Hgb Conc 33.5 g/dL (32.0-36.0); Mean Corpuscular Volume 94.4 fL (80.0-100.0); Monocytes % (auto) 10.4 %; Neutrophils # (auto) 8.48 K/uL (1.4-6.5); Neutrophils % (auto) 80.1 %; RDW Coefficient of Variation 14.6 % (11.5-14.5); RDW Standard Deviation 50.4 fL (36.4-46.3); Red Blood Count 3.01 M/uL (3.93-5.22); White Blood Count 10.59 K/ul (4.8-10.8)
[2022-09-13] MEDS: MAGNESIUM SULFATE / D5W 1 GM/100 ML BAG IV SCH ×2 (13:27→15:34)
--- NOTE | 2022-09-13 14:36 | XCELERA ---
[id number] \\[id number]
[2022-09-13] MEDS ORDERED: Nursing to Pharmacy Communication SCH (15:45)
[2022-09-13] MEDS: IMMUN GLOBG(IGG)/MALT/IGA OV50 200 ML IV SCH (16:41)
[2022-09-13] MEDS: ACETAMINOPHEN SUSP 325 MG/10.15 ML UDC PEG PRN (17:01)
[2022-09-13] MEDS ORDERED: MoRPHine SULFATE 2 MG/ML CARP IV STA (17:41)
[2022-09-13] MEDS: ONDANSETRON INJ 2 MG/ML 2 ML VIAL IV PRN (18:13)
[2022-09-13 18:33] LABS: Base Excess VBG 9.9 mEq/L; HCO3 VBG 37 mmol/L; Oxygen Saturation VBG 83.3 %; PCO2 VBG 58 mmHg (38-50); PO2 VBG 52 mmHg; pH VBG 7.41 (7.36-7.41)
[2022-09-13 18:52] LABS: BUN Creatinine Ratio 68.8 (10-20); Calcium 8.6 mg/dl (8.5-10.1); Creatinine Clr Calc Pharmacy 60.7 ml/min; Est GFR (African American) 102.6 ml/min; Est GFR (Non-African American) 88.5 ml/min; Magnesium 2.3 mg/dl (1.7-2.4); Potassium 3.5 mmol/L (3.5-5.1)
[2022-09-13] MEDS ORDERED: XOPENEX/ATROVENT 1.25mg/0.5MG NEB COMBO NEB SCH (19:00)
[2022-09-13] MEDS: SODIUM CHLOR 7% 4 ML NEB NEB SCH (19:35)
[2022-09-13] MEDS: LEVALBUTEROL 1.25MG/0.5ML NEB INH SCH ×2 (19:35→21:25)
[2022-09-13] MEDS: IPRATROPIUM BROMIDE NEB SOLN 0.02% 2.5 ML VIAL INH SCH (19:35)
[2022-09-13] MEDS: HYDROmorphone INJ 0.5 MG/0.5 ML SYR IV PRN ×2 (19:55→23:56)
[2022-09-13] MEDS: HYDROmorphone INJ 0.5 MG/0.5 ML SYR IV STA (23:56)
[2022-09-14] MEDS: HYDROmorphone INJ 0.5 MG/0.5 ML SYR IV STA
[2022-09-14] MEDS: IPRATROPIUM BROMIDE NEB SOLN 0.02% 2.5 ML VIAL INH SCH ×4 (02:13→19:33)
[2022-09-14] MEDS: LEVALBUTEROL 1.25MG/0.5ML NEB INH SCH ×4 (02:14→19:32)
[2022-09-14] MEDS: TUBE FEEDING WATER FLUSH PEG SCH ×6 (03:40→20:23)
[2022-09-14] MEDS: ACETAMINOPHEN SUSP 325 MG/10.15 ML UDC PEG PRN (04:46)
[2022-09-14] MEDS: guaiFENesin SUGAR FREE 100 MG/5 ML UDC GT SCH ×3 (04:47→17:23)
[2022-09-14] MEDS: HYDROmorphone INJ 0.5 MG/0.5 ML SYR IV PRN ×3 (05:55→21:03)
[2022-09-14] MEDS: INSULIN ASPART PER UNIT SC SCH ×3 (06:10→17:16)
[2022-09-14] MEDS: SODIUM CHLOR 7% 4 ML NEB NEB SCH ×2 (07:13→19:33)
[2022-09-14 07:29] LABS: Albumin Globulin Ratio 0.6 (0.9-2); Albumin Level 2.7 gm/dl (3.4-5.0); BUN Creatinine Ratio 70.8 (10-20); Bilirubin,Total 0.3 mg/dl (0.2-1.0); Calcium 8.1 mg/dl (8.5-10.1); Est GFR (African American) 102.1 ml/min; Est GFR (Non-African American) 88.1 ml/min; Globulin 4.9 gm/dl (2.5-4.0); Potassium 3.9 mmol/L (3.5-5.1); Total Protein 7.6 gm/dl (6.0-8.3)
[2022-09-14 07:47] LABS: Basophils # (auto) 0.01 K/uL (0-0.2); Basophils % (auto) 0.1 %; Hematocrit (blood only) 28.6 % (34.1-44.9); Hemoglobin 9.6 g/dl (12.0-16.0); Immature Granulocytes # (auto) 0.33 K/uL (0.00-0.02); Immature Granulocytes % (auto) 2.2 %; Lymphocytes % (auto) 4.1 %; Mean Corpuscular Hemoglobin 31.4 pg (25.0-34.0); Mean Corpuscular Hgb Conc 33.6 g/dL (32.0-36.0); Mean Corpuscular Volume 93.5 fL (80.0-100.0); Monocytes # (auto) 0.97 K/uL (0.24-0.82); Monocytes % (auto) 6.5 %; Neutrophils % (auto) 87.1 %; RDW Coefficient of Variation 14.8 % (11.5-14.5); RDW Standard Deviation 51.2 fL (36.4-46.3); Red Blood Count 3.06 M/uL (3.93-5.22); White Blood Count 14.81 K/ul (4.8-10.8)
[2022-09-14] MEDS: METOPROLOL TARTRATE 50 MG TAB OG SCH ×2 (08:13→20:21)
[2022-09-14] MEDS: NYSTATIN SUSP 500,000 U/5 ML UDC PO SCH ×4 (08:13→20:21)
[2022-09-14] MEDS: PIPERACILLIN/TAZOBACTAM 3.375 GM in DEXTROSE 5% 100 ML IV SCH (08:13)
[2022-09-14] MEDS: POTASSIUM CHLORIDE 20 MEQ/15 ML UDC PEG SCH (08:13)
[2022-09-14] MEDS: LANSOPRAZOLE 30 MG SOLTAB PEG SCH ×2 (08:14→20:20)
[2022-09-14] MEDS: CYANOCOBALAMIN (B-12) 500 MCG TABLET PEG SCH (08:14)
[2022-09-14] MEDS: GABAPENTIN 250 MG/5 ML 470 ML BTL PEG SCH ×3 (08:14→20:25)
[2022-09-14] MEDS: MAGNESIUM OXIDE 400 MG TAB PEG SCH ×2 (08:14→20:20)
[2022-09-14] MEDS: DULoxetine HCL 30 MG CAP PO SCH (08:15)
[2022-09-14] MEDS: LANTUS PER UNIT CHARGE SQ SCH (08:55)
[2022-09-14] MEDS: methylPREDNISolone 125 MG in SYRINGE 0 ML IV SCH ×2 (09:00→20:20)
[2022-09-14] MEDS ORDERED: FUROSEMIDE 40 MG/4 ML VIAL IV ONE (09:04)
--- NOTE | 2022-09-14 09:09 | Pulmonology Progress Note ---
Date of Service September 14, 2022 Assessment & Plan (1) Acute and chronic respiratory failure with hypoxia: (2) Myositis: (3) Dermatomyositis with respiratory involvement: (4) Chronic obstructive pulmonary disease: (5) Pneumonia: (6) Pleural effusion: Plan CT chest 09/13/2022 personally reviewed: Bilateral moderate pleural effusion with dependent atelectasis. Centrilobular emphysema appreciated bilaterally Is plugging of the right middle lobe as well as right lower lobe. It has improved compared to the CAT scan which was done 09/07/2022 Minimal mediastinal lymphadenopathy -- Acute on chronic hypoxic respiratory failure Etiology is most likely aspiration pneumonia Continue with aspiration precautions Repeat CT chest 09/13/2022 showed improvement in the right lower lobe mucous plugging, mild worsening of the right middle lobe. Continue with CPAP nightly and as needed shortness of breath Patient might benefit from CoughAssist -- Bilateral pleural effusion Etiology is likely hypoalbuminemia Continue with tube feeds No need for any intervention Diuresis as needed --Stage III breast cancer S/p mastectomy --Dermatomyositis Getting IVIG and high-dose Solu-Medrol IVIG also predisposes once to get clots -- DNR/DNI --Prophylaxis VTE: Lovenox GI: Lansoprazole Lines: Right-sided Port-A-Cath, peripheral, positive Skinner Diet: Tube feeds Plan: Give another Lasix 40 mg today. Continue with CoughAssist and hypertonic saline. Give albuterol nebulizers along with hypertonic saline Try to titrate down high flow to nasal cannula if possible. Try to keep saturation 90-92% Case discussed with RN at bedside Please note the above document was generated using voice recognition software. It may contain grammatical, syntax or spelling errors.Any formal questions or concerns about the content, text or information contained within the body of this dictation should be directly addressed to the provider for clarification. Admission and Anticipated Discharge Date Admission Date: September 02, 2022 Subjective Patient seen and examined at bedside. No acute distress, no adverse events overnight. Patient was saturating 98% on 35 L, 70% high flow. I went down to 50% She says she is feeling better compared to yesterday. Did have some chest tightness overnight which resolved. Is coughing up with the help of CoughAssist. Denies any hemoptysis No headache Review of Systems Review of Systems: All systems reviewed & are unremarkable except as noted in Subjective Physical Exam Physical Exam: Constitutional: No acute distress, frail-appearing HEENT: EOMI, PERRLA Respiratory system: Decreased air entry bilaterally, no wheeze, no rhonchi, positive crackles bilateral lower lobes CVS: S1-S2 positive, no murmurs or gallops Abdomen: Soft, nontender, nondistended, positive bowel sounds x4, positive PEG Extremities: +2 pulses bilaterally radialis/ dorsalis pedis, no cyanosis, no edema Neuro: Awake alert oriented x3 Psych: Normal mood and affect G/U: Positive Skinner Musculoskeletal: Left-sided mastectomy scar Skin: no rashes, warm and dry Lymphatic: no cervical or axillary lymphadenopathy Results & Data Results & Data ([facility]) Vital Signs (Past 12 Hours) Vital Signs Temp Pulse Pulse Resp BP Pulse Ox O2 Del Method 09/14/22 07:16 63 19 100 High Flow Nasal Cannula 09/14/22 07:15 63 18 100 High Flow Nasal Cannula 09/14/22 06:41 36.4 C L 93 H 18 170/80 H 92 High Flow Nasal Cannula 09/14/22 03:14 36.5 C 59 L 16 169/76 H 97 High Flow Nasal Cannula 09/14/22 02:21 60 97 High Flow Nasal Cannula 09/14/22 02:15 60 18 97 High Flow Nasal Cannula 09/14/22 00:40 73 09/13/22 23:34 20 100 High Flow Nasal Cannula 09/13/22 23:00 36.6 C 70 18 171/89 H 98 High Flow Nasal Cannula O2 Flow Rate FiO2 09/14/22 07:16 35 70 09/14/22 07:15 35 70 09/14/22 06:41 40 90 09/14/22 03:14 40 90 09/14/22 02:21 35 60 09/14/22 02:15 35 60 09/14/22 00:40 09/13/22 23:34 35 90 09/13/22 23:00 40 90 Laboratory Results 09/14/22 06:51 09/14/22 06:51 PG Care Time/CCT Total # of Minutes Spent Total Time Spent with Patient: Total time spent is greater than 50% in coordination of care (as documented) at patient's floor/unit and/or counseling patient: Coding Level of Care Code 75096 Subseq Hosp Care Lvl 3 Diagnoses Acute and chronic respiratory failure with hypoxia J96.21 Myositis M60.9 Dermatomyositis with respiratory involvement M33.91 Chronic obstructive pulmonary disease J44.9 Pneumonia J18.9 Pleural effusion J90
[2022-09-14] MEDS: ALBUMIN 25% 100 mL 25 GM/100 ML VIAL IV SCH ×2 (10:17→12:44)
[2022-09-14] MEDS: [UNRECOGNIZED DRUG - REMARK] SCH (12:17)
[2022-09-14] MEDS: ENOXAPARIN INJ 30 MG/0.3 ML SYR SQ SCH (16:17)
[2022-09-14] MEDS: IMMUN GLOBG(IGG)/MALT/IGA OV50 200 ML IV SCH (17:17)
--- NOTE | 2022-09-14 19:02 | Hospitalist Progress Note ---
Date of Service September 14, 2022 Assessment & Plan (1) Acute respiratory failure with hypoxia: Plan: 2nd to b/l lower lobe pneumonia, mucoid impaction of bronchi especially on right, RML collapse, some element of volume overload/?pulmonary edema, and emphysema. Acute worsening on 09/13 AM. STAT CTA Chest 09/13 without PEs. However - progressive mucoid impaction with RML collapse seen. Effusions b/l about the same. Background of emphysema. Improved resp failure overnight with alternating CPAP with HFNC, hypertonic saline nebs, xopenex/atrovent nebs, cough assist device, frequent side turning, etc. Did diurese well with lasix 20mg x 1 yesterday. Now back down to NC O2. Plan for today - cont pulmonary toilet as above; cont high-dose steroids; cont zosyn; cont mucolytics. Appreciate Dr Lyles's consult & recs - he ordered an additional dose of IV lasix 40mg x 1 today. If she were to have recurrent mucous plugging she is a very poor candidate for bronchoscopy to rid her airways of mucoid impaction. Likely to end up on vent, and she is DNR/DNI. (2) Bilateral pneumonia: Plan: b/l lower lobe, RLL/RML>LLL. aspiration. overall clinically worse 09/13/22 (see above) due to progressive mucoid impaction. clinically she is better today fortunately - again see #1 above. remains on zosyn IV. day #8 of such. cont zosyn. plan total 10 days. (3) Myositis: Plan: During her 06/2022 to 07/2022 prolonged hospitalization she underwent an extensive work-up looking for her b/l LE weakness and back pain. Most of her weakness was of the hip girdle muscles. She underwent MRIs of the spine along with extensive blood work. She was on empiric steroids (Dexamethasone) at that time. CPK was mildly elevated but aldolase was wnl. CRP was 0. She was evaluated by [facility] during the prior hospitalization. Her LE weakness gradually improved during that hospital stay and she was walking nearly 100 feet by time of discharge. Studies for myasthenia gravis, autoimmune disease (SUE, etc), and other neurological conditions were dispatched. She had f/u with [facility] Neurology shortly after discharge. EMGs of all 4 limbs were being planned. Her weakness progressed over July into August; she ultimately was recently readmitted on 09/02/22. Prior attending, Dr Nur, dispatched additional blood tests for myositis earlier this stay (myositis-specific auto ab's). MRIs of b/l thighs showed significant inflammation of the thigh muscles. She underwent a right thigh muscle bx on 09/06/22 by general surgery; results still pending. 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 This is highly associated with dermatomyositis and underlying malignancy. Thus, her proximal muscle weakness of the legs may be due to anti TIF-1 gamma antibody-positive DM. Rash of face/neck/chest/hands is likely dermatomyositis related. Dysphagia can be a symptom of dermatomyositis as well due to weakness of muscles of swallowing. Recent positive SUE fits with her clinical picture. In light of progressive dysphagia and worsening prox muscle weakness - and overall clinical status continuing to worsen -initiated high-dose steroids -- Solumedrol 125mg IV BID PM of 09/10/22. Thus, today is ~day #4 of such. IVIG x 5 days started 09/12 -- 20gm IV daily (2gm/kg spread over 5 days). Thus, today is dose #3. Increased PPI to twice daily dosing for GI prophy while on high-dose steroids. The above care plan has been reviewed with [facility] Rheumatology, Dr Jackson, who consulted formally - appreciate his consult & recs. If malignancy-related dermatomyositis is indeed present is there still un derlying active breast ca? CT chest/abd/pelvis does not show obvious recurrence or metastatic disease although there is thickening of the left chest wall in vicinity of prior mastectomy. Recent bone scan was negative for skeletal mets. Need for MRI brain? CT head recently neg for obvious mets. I spoke with Dr Morgan from oncology - if patient could tolerate would pursue brain MRI but defer for a few more days until respiratory status is much further along. Prognosis very poor given the severity of her dermatomyositis and progressive respiratory issues. (4) Dermatomyositis with respiratory involvement: Plan: see #3 above cause of progressive prox muscle weakness, dysphagia, rash, etc. rheum consult by Dr Jackson appreciated (5) SUE positive: Plan: see #3 above (6) Breast cancer: Plan: left sided stage 3 at diagnosis s/p chemo/XRT last spring/summer, followed by mastectomy 06/[address]arias extensive CT imaging and bone scan without obvious recurrence/mets although most recent CT chest with "thickening" of left chest wall noted see discussion above obtain MRI brain if and when possible (7) Severe protein-calorie malnutrition: Plan: ongoing, present since spring 2021 in the setting of newly diagnosed breast ca and neoadjuvant chemo/radiation during that time period. s/p PEG tube placement 01/2022. remains on enteral nutrition via PEG (Peptamen 1.5). patient is currently NPO due to concern of ongoing dysphagia/aspiration. placed feedings on hold while on CPAP can likely resume feedings tonight (8) Leukocytosis: Plan: severe at time of admission - resolved records from heme/onc indicate she had been on a medrol-dose pack just prior to this admission. thus, part of the leukocytosis may have been steroid-related; part of the elevated wbc also likely due to severe pneumonia. (9) Hypertension: Plan: improving cont metoprolol 50 BID (10) Vitamin B12 deficiency: Plan: dx earlier this fall - level now improved / normal (11) Hyponatremia: Plan: suspected SIADH baseline Na level about 130 Na today 129 - acceptable (12) Chronic obstructive pulmonary disease: Plan: suspected emphysematous changes on imaging long standing tobacco history cont schedules bronchodilators steroids supportive care (13) Acute metabolic encephalopathy: Plan: resolved back to baseline likely combination of meds (ativan , etc), acute illness (pneumonia, etc) (14) Dysphagia: Plan: progressive since earlier this fall extensive work-up -- speech therapy, ENT, GI, neurology all have been involved in her care etiology previously elusive dx likely due to dermatomyositis with oropharyngeal muscle involvement see above re: steroids, IVIG, etc NPO (15) DVT prophylaxis: Plan: lovenox 30mg daily - she states she will comply ; had been declining her lovenox earlier this week (16) Hypomagnesemia: Plan: replaced resolved but repeat level AM for stability (17) Candidiasis of mouth and esophagus: Plan: nystatin 5cc qid - nurses swabbing the oral mucosa with nystatin if unable to take change to diflucan 100mg daily via PEG (18) Volume overload: Plan: suspected lasix 20mg IV x 1 12/22 lasix 40mg IV x 1 today may need additional diuresis tomorrow formal echo read from 09/13 still pending Plan updated pt's daughter by phone again today Admission and Anticipated Discharge Date Admission Date: September 02, 2022 Subjective patient weaned off CPAP/HFNC and is now on NC O2 she feels much better today she is coughing up mucous/sputum - much more than previous her voice is stronger she is less short of breath she is encouraged by all of this tele overnight wnl nursing staff report ?dean catheter issues patient states that in middle of night she woke up soaked in bed with urine - this would suggest dean is obstructed nursing staff to replace the catheter Review of Systems Review of Systems: gen - weak, but no worse than previous psych - anxious cv - no orthopnea today; still with mild pleuritic pain over b/l chest pulm - less dyspnea, less cough; sputum production more robust GI - no pain skin - rash on hands improved Physical Exam Physical Exam: gen - looks MUCH better today - comfortable, no distress, voice is more clear & stronger mouth - MMM; thrush improved neck - no JVD heart - RRR, s1 s2, no murmur lungs - decreased BS b/l bases but airation today MUCH improved; no wheezes; no rales; no distress chest - a-port clean abd - soft NT ND BS+; PEG tube site clean ext - no edema, pulses 2+ b/l psych - less anxious today skin - erythematous rash over most of face, neck and chest - cont to improve; rash on hands MUCH better Results & Data Results & Data ([facility]) Vital Signs (Past 12 Hours) Vital Signs Temp Pulse Pulse Resp BP Pulse Ox O2 Del Method 09/14/22 09:00 67 09/14/22 09:00 High Flow Nasal Cannula 09/14/22 15:12 36.6 C 64 18 156/75 H 92 Nasal Cannula 09/14/22 13:22 59 L 17 100 High Flow Nasal Cannula 09/14/22 10:42 36.8 C 61 19 163/75 H 100 High Flow Nasal Cannula 09/14/22 10:29 53 L 17 100 High Flow Nasal Cannula 09/14/22 07:16 63 19 100 High Flow Nasal Cannula 09/14/22 07:15 63 18 100 High Flow Nasal Cannula O2 Flow Rate FiO2 09/14/22 09:00 09/14/22 09:00 09/14/22 15:12 4 09/14/22 13:22 35 35 09/14/22 10:42 35 09/14/22 10:29 35 40 09/14/22 07:16 35 70 09/14/22 07:15 35 70 Laboratory Results Laboratory Results - last 24 hr 09/13/22 09/14/22 09/14/22 23:58 05:57 06:51 WBC 14.81 H RBC 3.06 L Hgb 9.6 L Hct 28.6 L MCV 93.5 MCH 31.4 MCHC 33.6 RDW Std Deviation 51.2 H RDW Coeff of Emil 14.8 H Plt Count MPV Immature Gran % (Auto) 2.2 Neut % (Auto) 87.1 Lymph % (Auto) 4.1 [place] % (Auto) 6.5 Eos % (Auto) 0.0 Baso % (Auto) 0.1 Neut # (Auto) 12.90 H Lymph # (Auto) 0.60 L [place] # (Auto) 0.97 H Eos # (Auto) 0.00 Baso # (Auto) 0.01 Immature Gran # (Auto) 0.33 H Sodium Potassium Chloride Carbon Dioxide Anion Gap BUN Creatinine Est Cr Clr Drug Dosing Est GFR ( Amer) Est GFR (Non-Af Amer) BUN/Creatinine Ratio Glucose POC Glucose 154 H 155 H Calcium Total Bilirubin AST ALT Alkaline Phosphatase Total Protein Albumin Globulin Albumin/Globulin Ratio 09/14/22 09/14/22 09/14/22 06:51 12:56 17:14 WBC RBC Hgb Hct MCV MCH MCHC RDW Std Deviation RDW Coeff of Emil Plt Count MPV Immature Gran % (Auto) Neut % (Auto) Lymph % (Auto) [place] % (Auto) Eos % (Auto) Baso % (Auto) Neut # (Auto) Lymph # (Auto) [place] # (Auto) Eos # (Auto) Baso # (Auto) Immature Gran # (Auto) Sodium 129 L Potassium 3.9 Chloride 90 L Carbon Dioxide 34 H Anion Gap 5 BUN 46 H Creatinine 0.65 Est Cr Clr Drug Dosing 61.0 Est GFR ( Amer) 102.1 Est GFR (Non-Af Amer) 88.1 BUN/Creatinine Ratio 70.8 H Glucose 138 H POC Glucose 140 H 119 H Calcium 8.1 L Total Bilirubin 0.3 AST 36 ALT 69 H Alkaline Phosphatase 110 H Total Protein 7.6 Albumin 2.7 L Globulin 4.9 H Albumin/Globulin Ratio 0.6 L 09/14/22 18:01 WBC RBC Hgb Hct MCV MCH MCHC RDW Std Deviation RDW Coeff of Emil Plt Count MPV Immature Gran % (Auto) Neut % (Auto) Lymph % (Auto) [place] % (Auto) Eos % (Auto) Baso % (Auto) Neut # (Auto) Lymph # (Auto) [place] # (Auto) Eos # (Auto) Baso # (Auto) Immature Gran # (Auto) Sodium Potassium Chloride Carbon Dioxide Anion Gap BUN Creatinine Est Cr Clr Drug Dosing Est GFR ( Amer) Est GFR (Non-Af Amer) BUN/Creatinine Ratio Glucose POC Glucose 118 H Calcium Total Bilirubin AST ALT Alkaline Phosphatase Total Protein Albumin Globulin Albumin/Globulin Ratio PG Care Time/CCT Total # of Minutes Spent Total Time Spent with Patient: Total time spent is greater than 50% in coordination of care (as documented) at patient's floor/unit and/or counseling patient: Coding Level of Care Code 76996 Subseq Hosp Care Lvl 3 Diagnoses Acute respiratory failure with hypoxia J96.01 Bilateral pneumonia J18.9 Myositis M60.9 Dermatomyositis with respiratory involvement M33.91 SUE positive R76.8 Breast cancer C50.912 Breast location: unspecified site of breast Estrogen receptor status: unspecified Laterality: left Patient sex: female Severe protein-calorie malnutrition E43 Leukocytosis D72.829 Hypertension I10 Hypertension type: primary hypertension Vitamin B12 deficiency E53.8 Hyponatremia E87.1 Chronic obstructive pulmonary disease J44.9 Acute metabolic encephalopathy G93.41 Dysphagia R13.10 DVT prophylaxis Z29.9 Hypomagnesemia E83.42 Candidiasis of mouth and esophagus B37.81; B37.0 Volume overload E87.70 (1) Breast cancer Breast location: unspecified site of breast Estrogen receptor status: unspecified Laterality: left Patient sex: female Qualified Code(s): C50.912 - Malignant neoplasm of unspecified site of left female breast (2) Hypertension Hypertension type: primary hypertension Qualified Code(s): I10 - Essential (primary) hypertension
[2022-09-15] MEDS: INSULIN ASPART PER UNIT SC SCH ×4 (00:07→17:04)
[2022-09-15] MEDS: ACETAMINOPHEN SUSP 325 MG/10.15 ML UDC PEG PRN (00:11)
[2022-09-15] MEDS: guaiFENesin SUGAR FREE 100 MG/5 ML UDC GT SCH ×4 (00:11→17:00)
[2022-09-15] MEDS: TUBE FEEDING WATER FLUSH PEG SCH ×7 (00:11→23:30)
[2022-09-15] MEDS: IPRATROPIUM BROMIDE NEB SOLN 0.02% 2.5 ML VIAL INH SCH ×4 (00:53→19:16)
[2022-09-15] MEDS: LEVALBUTEROL 1.25MG/0.5ML NEB INH SCH ×4 (00:53→19:16)
[2022-09-15] MEDS: HYDROmorphone INJ 0.5 MG/0.5 ML SYR IV PRN ×3 (05:24→22:49)
--- NOTE | 2022-09-15 06:20 | Electrocardiogram Report ---
Test Reason : Blood Pressure : / mmHG Vent. Rate : 091 BPM Atrial Rate : 091 BPM P-R Int : 136 ms QRS Dur : 086 ms QT Int : 362 ms P-R-T Axes : 080 059 076 degrees QTc Int : 445 ms Sinus rhythm with Premature atrial complexes Voltage criteria for left ventricular hypertrophy Anteroseptal infarct (cited on or before 31-JAN-2022) Abnormal ECG When compared with ECG of 02-SEP-2022 19:32, Premature atrial complexes are now Present Nonspecific T wave abnormality no longer evident in Lateral leads Confirmed by Catracho Quesada ([id number]) on 09/15/2022 6:19:38 AM Referred By: REFERRED SELF Confirmed By:Catracho Quesada
[2022-09-15 06:58] LABS: BUN Creatinine Ratio 71.9 (10-20); Calcium 8.6 mg/dl (8.5-10.1); Creatinine Clr Calc Pharmacy 61.7 ml/min; Est GFR (African American) 102.6 ml/min; Est GFR (Non-African American) 88.5 ml/min; Potassium 3.6 mmol/L (3.5-5.1)
[2022-09-15 07:17] LABS: Hematocrit (blood only) 28.7 % (34.1-44.9); Hemoglobin 9.5 g/dl (12.0-16.0); Mean Corpuscular Hemoglobin 31.3 pg (25.0-34.0); Mean Corpuscular Hgb Conc 33.1 g/dL (32.0-36.0); Mean Corpuscular Volume 94.4 fL (80.0-100.0); RDW Coefficient of Variation 14.9 % (11.5-14.5); RDW Standard Deviation 51.5 fL (36.4-46.3); Red Blood Count 3.04 M/uL (3.93-5.22); White Blood Count 9.52 K/ul (4.8-10.8)
[2022-09-15] MEDS: SODIUM CHLOR 7% 4 ML NEB NEB SCH ×2 (07:17→19:16)
[2022-09-15] MEDS: ENOXAPARIN INJ 30 MG/0.3 ML SYR SQ SCH (08:08)
[2022-09-15] MEDS: NYSTATIN SUSP 500,000 U/5 ML UDC PO SCH ×4 (08:09→20:31)
[2022-09-15] MEDS: LANSOPRAZOLE 30 MG SOLTAB PEG SCH ×2 (08:09→20:31)
[2022-09-15] MEDS: POTASSIUM CHLORIDE 20 MEQ/15 ML UDC PEG SCH (08:09)
[2022-09-15] MEDS: methylPREDNISolone 125 MG in SYRINGE 0 ML IV SCH ×2 (08:09→20:32)
[2022-09-15] MEDS: MAGNESIUM OXIDE 400 MG TAB PEG SCH ×2 (08:09→20:31)
[2022-09-15] MEDS: METOPROLOL TARTRATE 50 MG TAB OG SCH ×2 (08:09→20:31)
[2022-09-15] MEDS: CYANOCOBALAMIN (B-12) 500 MCG TABLET PEG SCH (08:09)
[2022-09-15] MEDS: GABAPENTIN 250 MG/5 ML 470 ML BTL PEG SCH ×3 (08:15→20:32)
[2022-09-15] MEDS: LANTUS PER UNIT CHARGE SQ SCH (08:15)
--- NOTE | 2022-09-15 09:47 | Pulmonology Progress Note ---
Date of Service September 15, 2022 Assessment & Plan (1) Acute and chronic respiratory failure with hypoxia: (2) Myositis: (3) Dermatomyositis with respiratory involvement: (4) Chronic obstructive pulmonary disease: (5) Pneumonia: (6) Pleural effusion: Plan CT chest 09/13/2022 personally reviewed: Bilateral moderate pleural effusion with dependent atelectasis. Centrilobular emphysema appreciated bilaterally Is plugging of the right middle lobe as well as right lower lobe. It has improved compared to the CAT scan which was done 09/07/2022 Minimal mediastinal lymphadenopathy -- Acute on chronic hypoxic respiratory failure Etiology is most likely aspiration pneumonia Continue with aspiration precautions Repeat CT chest 09/13/2022 showed improvement in the right lower lobe mucous plugging, mild worsening of the right middle lobe. Continue with CPAP nightly and as needed shortness of breath Patient might benefit from CoughAssist -- Bilateral pleural effusion Etiology is likely hypoalbuminemia Continue with tube feeds No need for any intervention Diuresis as needed --Stage III breast cancer S/p mastectomy --Dermatomyositis Getting IVIG and high-dose Solu-Medrol -- DNR/DNI --Prophylaxis VTE: Lovenox GI: Lansoprazole Lines: Right-sided Port-A-Cath, peripheral, positive Skinner Diet: Tube feeds Plan: In/out: -2.4 L Give another dose of Lasix 20 mg today, 25% albumin 50 minutes prior to that Continue with CoughAssist and hypertonic saline. Give albuterol nebulizers along with hypertonic saline Case discussed with RN at bedside No further recommendation from pulmonary perspective. We will sign off, please call directly with any questions Please note the above document was generated using voice recognition software. It may contain grammatical, syntax or spelling errors.Any formal questions or concerns about the content, text or information contained within the body of this dictation should be directly addressed to the provider for clarification. Admission and Anticipated Discharge Date Admission Date: September 02, 2022 Subjective Patient seen and examined at bedside. No acute distress, no adverse events overnight. Patient was saturating 100% on 4 L nasal cannula. I went down to 2 L. Overall she was feeling better compared to before Denies any headache, no nausea, no vomiting. She was asking if she can eat, she is having craving for popcorn Review of Systems Review of Systems: All systems reviewed & are unremarkable except as noted in Subjective Physical Exam Physical Exam: Constitutional: No acute distress, frail-appearing HEENT: EOMI, PERRLA Respiratory system: Decreased air entry bilaterally, no wheeze, no rhonchi, positive crackles bilateral lower lobes CVS: S1-S2 positive, no murmurs or gallops Abdomen: Soft, nontender, nondistended, positive bowel sounds x4, positive PEG Extremities: +2 pulses bilaterally radialis/ dorsalis pedis, no cyanosis, no edema Neuro: Awake alert oriented x3 Psych: Normal mood and affect G/U: Positive Skinner Musculoskeletal: Left-sided mastectomy scar Skin: no rashes, warm and dry Lymphatic: no cervical or axillary lymphadenopathy Results & Data Results & Data ([facility]) Vital Signs (Past 12 Hours) Vital Signs Temp Pulse Pulse Resp BP Pulse Ox Pulse Ox 09/15/22 07:18 58 L 18 91 09/15/22 06:36 36.4 C L 65 16 162/68 H 94 09/15/22 03:58 36.4 C L 64 18 157/73 H 94 09/15/22 01:00 98 09/15/22 00:53 58 L 20 99 09/14/22 23:29 36.4 C L 60 16 189/75 H 95 09/14/22 22:06 56 L O2 Del Method O2 Del Method O2 Flow Rate O2 Flow Rate 09/15/22 07:18 Nasal Cannula 4 09/15/22 06:36 Nasal Cannula 4 09/15/22 03:58 Nasal Cannula 4 09/15/22 01:00 Nasal Cannula 4 09/15/22 00:53 Nasal Cannula 3 09/14/22 23:29 BiPAP 09/14/22 22:06 Laboratory Results 09/15/22 06:18 09/15/22 06:18 PG Care Time/CCT Total # of Minutes Spent Total Time Spent with Patient: Total time spent is greater than 50% in coordination of care (as documented) at patient's floor/unit and/or counseling patient: Coding Level of Care Code 64861 Subseq Hosp Care Lvl 2 Diagnoses Acute and chronic respiratory failure with hypoxia J96.21 Myositis M60.9 Dermatomyositis with respiratory involvement M33.91 Chronic obstructive pulmonary disease J44.9 Pneumonia J18.9 Pleural effusion J90
[2022-09-15] MEDS: [UNRECOGNIZED DRUG - REMARK] SCH (10:38)
[2022-09-15] MEDS ORDERED: FUROSEMIDE INJ 20 MG/2 ML VIAL IV ONE (11:35)
[2022-09-15] MEDS: ALBUMIN 25% 100 mL 25 GM/100 ML VIAL IV SCH ×2 (12:33→14:20)
[2022-09-15] MEDS: IMMUN GLOBG(IGG)/MALT/IGA OV50 200 ML IV SCH ×2 (16:38→16:58)
--- NOTE | 2022-09-15 19:52 | Hospitalist Progress Note ---
Date of Service September 15, 2022 Assessment & Plan (1) Acute respiratory failure with hypoxia: Plan: 2nd to b/l lower lobe pneumonia, mucoid impaction of bronchi especially on right, RML collapse, some element of volume overload/pulmonary edema, and emphysema. Acute worsening on 09/13 AM. STAT CTA Chest 09/13 without PEs. However - progressive mucoid impaction with RML collapse seen. Effusions b/l about the same. Background of emphysema. Improved resp failure last 48 hours due to use of CPAP with HFNC, hypertonic saline nebs, xopenex/atrovent nebs, cough assist device, frequent side turning, etc. Did diurese well with lasix over last 48 hours. Now back down to [place] O2. Plan for today - cont pulmonary toilet as above; cont high-dose steroids; cont zosyn; cont mucolytics. Additional dose of lasix today. Appreciate Dr Lyles's recommendations. If she were to have recurrent mucous plugging she is a very poor candidate for bronchoscopy to rid her airways of mucoid impaction. Likely to end up on vent, and she is DNR/DNI. (2) Bilateral pneumonia: Plan: b/l lower lobe, RLL/RML>LLL. aspiration. overall clinically worse 09/13/22 (see above) due to progressive mucoid impa ction. clinically she is better today fortunately - again see #1 above. remains on zosyn IV. day #9 of such. cont zosyn. plan total 10 days. (3) Myositis: Plan: During her 06/2022 to 07/2022 prolonged hospitalization she underwent an extensive work-up looking for her b/l LE weakness and back pain. Most of her weakness was of the hip girdle muscles. She underwent MRIs of the spine along with extensive blood work. She was on empiric steroids (Dexamethasone) at that time. CPK was mildly elevated but aldolase was wnl. CRP was 0. She was evaluated by [facility] during the prior hospitalization. Her LE weakness gradually improved during that hospital stay and she was walking nearly 100 feet by time of discharge. Studies for myasthenia gravis, autoimmune disease (SUE, etc), and other neurological conditions were dispatched. She had f/u with [facility] shortly after discharge. EMGs of all 4 limbs were being planned. Her weakness progressed over July into August; she ultimately was recently readmitted on 09/02/22. Prior attending, Dr Nur, dispatched additional blood tests for myositis ea rlier this stay (myositis-specific auto ab's). MRIs of b/l thighs showed significant inflammation of the thigh muscles. She underwent a right thigh muscle bx on 09/06/22 by general surgery; results still pending. 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 This is highly associated with dermatomyositis and underlying malignancy. Thus, her proximal muscle weakness of the legs may be due to anti TIF-1 gamma antibody-positive DM. Rash of face/neck/chest/hands is likely dermatomyositis related. Dysphagia can be a symptom of dermatomyositis as well due to weakness of muscles of swallowing. Recent positive SUE fits with her clinical picture. In light of progressive dysphagia and worsening prox muscle weakness - and overall clinical status continuing to worsen -initiated high-dose steroids -- Solumedrol 125mg IV BID PM of 09/10/22. Thus, today is ~day #5 of such. IVIG x 5 days started 09/12 -- 20gm IV daily (2gm/kg spread over 5 days). Thus, today is dose #4. Increased PPI to twice daily dosing for GI prophy while on high-dose steroids. The above care plan has been reviewed with [facility], Dr Jackson, who consulted formally - appreciate his consult & recs. If malignancy-related dermatomyositis is indeed present is there still underlying active breast ca? CT chest/abd/pelvis does not show obvious recurrence or metastatic disease although there is thickening of the left chest wall in vicinity of prior mastectomy. Recent bone scan was negative for skeletal mets. Need for MRI brain? CT head recently neg for obvious mets. I spoke with Dr Morgan from oncology - if patient could tolerate would pursue brain MRI but defer for a few more days until respiratory status is much further along. Prognosis very poor given the severity of her dermatomyositis and progressive respiratory issues. (4) Dermatomyositis with respiratory involvement: Plan: see #3 above cause of progressive prox muscle weakness, dysphagia, rash, etc. rheum consult by Dr Jackson appreciated rash component has improved (5) SUE positive: Plan: see #3 above (6) Breast cancer: Plan: left sided stage 3 at diagnosis s/p chemo/XRT last spring/summer, followed by mastectomy 06/[address]arias extensive CT imaging and bone scan without obvious recurrence/mets although most recent CT chest with "thickening" of left chest wall noted see discussion above obtain MRI brain if and when possible (7) Severe protein-calorie malnutrition: Plan: ongoing, present since spring 2021 in the setting of newly diagnosed breast ca and neoadjuvant chemo/radiation during that time period. s/p PEG tube placement 01/2022. remains on enteral nutrition via PEG (Peptamen 1.5). patient is currently NPO due to concern of ongoing dysphagia/aspiration. placed feedings on hold while on CPAP can likely resume feedings tonight will need to pause CPAP while on night-time feedings start feedings at 30cc/hr and gradually increase to goal will ask nutrition about optimal amounts of Peptamen 1.5, goal rate, etc now that she is NPO - run feedings both day & night? (8) Leukocytosis: Plan: severe at time of admission - resolved part of the leukocytosis may have been steroid-related; part of the elevated wbc also likely due to severe pneumonia either way WBC count is normal (9) Hypertension: Plan: improving but still high if BPs still high in am then increase metoprolol to 75mg BID (10) Vitamin B12 deficiency: Plan: dx earlier this fall - level now improved / normal (11) Hyponatremia: Plan: suspected SIADH baseline Na level about 130 Na today 130 - acceptable (12) Chronic obstructive pulmonary disease: Plan: suspected emphysematous changes on imaging long standing tobacco history cont schedules bronchodilators steroids supportive care (13) Acute metabolic encephalopathy: Plan: resolved back to baseline likely combination of meds (ativan , etc), acute illness (pneumonia, etc) (14) Dysphagia: Plan: progressive since earlier this fall extensive work-up -- speech therapy, ENT, GI, neurology all have been involved in her care etiology previously elusive dx likely due to dermatomyositis with oropharyngeal muscle involvement see above re: steroids, IVIG, etc strict NPO (15) DVT prophylaxis: Plan: lovenox 30mg daily - she states she will comply ; had been declining her lovenox earlier this week (16) Hypomagnesemia: Plan: replaced resolved (17) Candidiasis of mouth and esophagus: Plan: nystatin 5cc qid - nurses swabbing the oral mucosa with nystatin if unable to take change to diflucan 100mg daily via PEG (18) Volume overload: Plan: suspected lasix 20mg IV x 1 09/13 lasix 40mg IV x 1 09/14 lasix 20mg IV x 1 09/15 Plan updated pt's daughter briefly at bedside today with respect to urinary issues - consider low-dose oxybutinin; consider exchanging dean for larger size Admission and Anticipated Discharge Date Admission Date: September 02, 2022 Subjective patient sleeping during my assessment she briefly woke up then returned to sleep she was comfortable and in no distress staff report issues with dean and that patient can under her own volition void around the catheter several hundred CCs dean was swapped out yesterday no diarrhea at all overnight or today tube feeds remain on hold tele overnight wnl Review of Systems Review of Systems: Other (sleeping ) Physical Exam Physical Exam: gen - sleeping, comfortable, NAD; no respiratory distress mouth - MMM neck - no JVD heart - RRR, s1 s2, no murmur lungs - CTA anteriorly, decreased BS bases, overall airation continues to improve b/l chest - a-port clean abd - soft NT ND BS+; PEG tube site clean ext - no edema, pulses 2+ b/l skin - erythematous rash over most of face, neck and chest resolving; rash on hands nearly resolved i Results & Data Results & Data ([facility]) Vital Signs (Past 12 Hours) Vital Signs Temp Pulse Pulse Resp BP Pulse Ox O2 Del Method 09/15/22 19:17 63 18 92 Nasal Cannula 09/15/22 14:00 72 09/15/22 17:01 36.5 C 66 18 166/73 H 94 Nasal Cannula 09/15/22 13:30 59 L 18 92 Nasal Cannula 09/15/22 12:25 36.6 C 61 18 171/72 H 95 Nasal Cannula 09/15/22 08:00 66 09/15/22 08:00 Nasal Cannula O2 Flow Rate 09/15/22 19:17 1 09/15/22 14:00 09/15/22 17:01 1 09/15/22 13:30 4 09/15/22 12:25 1 09/15/22 08:00 09/15/22 08:00 4 Laboratory Results Laboratory Results - last 24 hr 09/14/22 09/15/22 09/15/22 23:57 05:54 06:18 WBC RBC Hgb Hct MCV MCH MCHC RDW Std Deviation RDW Coeff of Emil Plt Count MPV Plt Count ,Citrate Sodium 130 L Potassium 3.6 Chloride 87 L Carbon Dioxide 37 H Anion Gap 6 BUN 46 H Creatinine 0.64 Est Cr Clr Drug Dosing 61.7 Est GFR ( Amer) 102.6 Est GFR (Non-Af Amer) 88.5 BUN/Creatinine Ratio 71.9 H Glucose 133 H POC Glucose 111 H 140 H Calcium 8.6 Magnesium 2.0 09/15/22 09/15/22 09/15/22 06:18 06:26 12:22 WBC 9.52 RBC 3.04 L Hgb 9.5 L Hct 28.7 L MCV 94.4 MCH 31.3 MCHC 33.1 RDW Std Deviation 51.5 H RDW Coeff of Emil 14.9 H Plt Count MPV Plt Count ,Citrate 315 Sodium Potassium Chloride Carbon Dioxide Anion Gap BUN Creatinine Est Cr Clr Drug Dosing Est GFR ( Amer) Est GFR (Non-Af Amer) BUN/Creatinine Ratio Glucose POC Glucose 121 H Calcium Magnesium PG Care Time/CCT Total # of Minutes Spent Total Time Spent with Patient: Total time spent is greater than 50% in coordination of care (as documented) at patient's floor/unit and/or counseling patient: Coding Level of Care Code 00046 Subseq Hosp Care Lvl 2 Diagnoses Acute respiratory failure with hypoxia J96.01 Bilateral pneumonia J18.9 Myositis M60.9 Dermatomyositis with respiratory involvement M33.91 SUE positive R76.8 Breast cancer C50.912 Breast location: unspecified site of breast Estrogen receptor status: unspecified Laterality: left Patient sex: female Severe protein-calorie malnutrition E43 Leukocytosis D72.829 Hypertension I10 Hypertension type: primary hypertension Vitamin B12 deficiency E53.8 Hyponatremia E87.1 Chronic obstructive pulmonary disease J44.9 Acute metabolic encephalopathy G93.41 Dysphagia R13.10 DVT prophylaxis Z29.9 Hypomagnesemia E83.42 Candidiasis of mouth and esophagus B37.81; B37.0 Volume overload E87.70 (1) Breast cancer Breast location: unspecified site of breast Estrogen receptor status: unspecified Laterality: left Patient sex: female Qualified Code(s): C50.912 - Malignant neoplasm of unspecified site of left female breast (2) Hypertension Hypertension type: primary hypertension Qualified Code(s): I10 - Essential (primary) hypertension
[2022-09-15] MEDS: PEPTAMEN 1.5 CAL 1,000 ML BAG PEG SCH (22:00)
[2022-09-15] MEDS: ALBUT/IPRATROP 3MG/0.5MG NEB 3 ML VIAL NEB PRN (23:05)
[2022-09-16] MEDS: INSULIN ASPART PER UNIT SC SCH ×4 (00:22→16:59)
[2022-09-16] MEDS: IPRATROPIUM BROMIDE NEB SOLN 0.02% 2.5 ML VIAL INH SCH ×4 (00:55→19:44)
[2022-09-16] MEDS: LEVALBUTEROL 1.25MG/0.5ML NEB INH SCH ×4 (00:56→19:44)
[2022-09-16] MEDS: guaiFENesin SUGAR FREE 100 MG/5 ML UDC GT SCH ×4 (01:59→17:09)
[2022-09-16] MEDS: ACETAMINOPHEN SUSP 325 MG/10.15 ML UDC PEG PRN (01:59)
[2022-09-16] MEDS: TUBE FEEDING WATER FLUSH PEG SCH ×5 (05:46→20:53)
[2022-09-16 06:37] LABS: BUN Creatinine Ratio 72.7 (10-20); Calcium 9.2 mg/dl (8.5-10.1); Creatinine Clr Calc Pharmacy 57.3 ml/min; Est GFR (African American) 101.6 ml/min; Est GFR (Non-African American) 87.6 ml/min; Potassium 3.2 mmol/L (3.5-5.1)
[2022-09-16 06:42] LABS: Hematocrit (blood only) 28.2 % (34.1-44.9); Hemoglobin 9.4 g/dl (12.0-16.0); Mean Corpuscular Hemoglobin 31.3 pg (25.0-34.0); Mean Corpuscular Hgb Conc 33.3 g/dL (32.0-36.0); RDW Coefficient of Variation 14.8 % (11.5-14.5); RDW Standard Deviation 50.4 fL (36.4-46.3); White Blood Count 14.16 K/ul (4.8-10.8)
--- NOTE | 2022-09-16 07:23 | XRay Report ---
XR chest 1V portable CLINICAL HISTORY: hypoxia COMPARISON STUDY: Chest radiograph and chest CT September 13, 2022. FINDINGS: Right internal jugular [id number] is in place. Cardiac size is normal. Right lower lobe consolidation is improved. Left lower lobe airspace opacity with volume loss has progressed. Small bi lateral pleural effusions are noted. No pneumothorax. There is no evidence for pulmonary edema. IMPRESSION: 1. Increase in left lower lobe airspace opacity with volume loss. This may reflect aspiration pneumon itis or pneumonia. 2. Improvement in right lower lobe consolidation. 3. Small bilateral pleural effusions. ACT 112: Negative or not required by law. Electronically signed by: Regino Hayden M.D. 09/16/2022 7:22 AM
[2022-09-16] MEDS: SODIUM CHLOR 7% 4 ML NEB NEB SCH ×2 (07:37→19:43)
[2022-09-16] MEDS: MAGNESIUM OXIDE 400 MG TAB PEG SCH ×2 (09:04→22:12)
[2022-09-16] MEDS: CYANOCOBALAMIN (B-12) 500 MCG TABLET PEG SCH (09:04)
[2022-09-16] MEDS: NYSTATIN SUSP 500,000 U/5 ML UDC PO SCH ×4 (09:04→22:12)
[2022-09-16] MEDS: LANSOPRAZOLE 30 MG SOLTAB PEG SCH ×2 (09:04→22:12)
[2022-09-16] MEDS: METOPROLOL TARTRATE 50 MG TAB OG SCH ×2 (09:04→22:12)
[2022-09-16] MEDS: POTASSIUM CHLORIDE 20 MEQ/15 ML UDC PEG SCH ×2 (09:05→22:12)
[2022-09-16] MEDS: ENOXAPARIN INJ 30 MG/0.3 ML SYR SQ SCH (09:05)
[2022-09-16] MEDS: methylPREDNISolone 125 MG in SYRINGE 0 ML IV SCH (09:06)
[2022-09-16] MEDS: LANTUS PER UNIT CHARGE SQ SCH (09:12)
[2022-09-16] MEDS: GABAPENTIN 250 MG/5 ML 470 ML BTL PEG SCH ×3 (09:12→22:12)
[2022-09-16] MEDS: [UNRECOGNIZED DRUG - REMARK] SCH (10:44)
[2022-09-16] MEDS: HYDROmorphone INJ 0.5 MG/0.5 ML SYR IV PRN (17:09)
--- NOTE | 2022-09-16 20:21 | Hospitalist Progress Note ---
Date of Service September 16, 2022 Assessment & Plan (1) Acute respiratory failure with hypoxia: Plan: 2nd to b/l lower lobe pneumonia, mucoid impaction of bronchi especially on right, RML collapse, some element of volume overload/pulmonary edema, and emphysema. Acute worsening on 09/13 AM. STAT CTA Chest 09/13 at that time without PEs. However - progressive mucoid impaction with RML collapse seen. Effusions b/l about the same. Background of emphysema. Seen by Dr Lyles - pulmonary. She has had improvement since then due to use of CPAP with HFNC, hypertonic saline nebs, xopenex/atrovent nebs, cough assist device, frequent side turning, etc. Did diurese well with lasix over last 3 days. Now back down to [place] O2. Intermittent episodes of hypoxia and acute worsening likely aspiration events, mucoid impaction, shunting, etc. Plan - cont pulmonary toilet as above; cont steroids but she has completed 6 days of high-dose - change to prednisone 50mg daily via PEG starting 09/17. Stop zosyn - has completed 10 days of such. Keep strict NPO. we discussed CPAP at hs. Dr Lyles wants her to continue such. She cannot do CPAP without anxiety meds - will order tiny dose of ativan 0.25mg at HS to help with the anxiety. Appreciate Dr Lyles's recommendations. If she were to have recurrent mucous plugging she is a very poor candidate for bronchoscopy to rid her airways of mucoid impaction. Likely to end up on vent, and she is DNR/DNI. (2) Bilateral pneumonia: Plan: b/l lower lobe, RLL/RML>LLL. 2nd aspiration. overall clinically worse 09/13/22 (see above) due to progressive mucoid impaction. s/p 10 days of IV zosyn - stop today. (3) Myositis: Plan: During her 06/2022 to 07/2022 prolonged hospitalization she underwent an extensive work-up looking for her b/l LE weakness and back pain. Most of her weakness was of the hip girdle muscles. She underwent MRIs of the spine along with extensive blood work. She was on empiric steroids (Dexamethasone) at that time. CPK was mildly elevated but aldolase was wnl. CRP was 0. She was evaluated by [facility] during the prior hospitalization. Her LE weakness gradually improved during that hospital stay and she was walking nearly 100 feet by time of discharge. Studies for myasthenia gravis, autoimmune disease (SUE, etc), and other neurol ogical conditions were dispatched. She had f/u with [facility] shortly after discharge. EMGs of all 4 limbs were being planned. Her weakness progressed over July into August; she ultimately was recently readmitted on 09/02/22. Prior attending, Dr Nur, dispatched additional blood tests for myositis earlier this stay (myositis-specific auto ab's). MRIs of b/l thighs showed significant inflammation of the thigh muscles. She underwent a right thigh muscle bx on 09/06/22 by general surgery; results still pending. 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 This is highly associated with dermatomyositis and underlying malignancy. Thus, her proximal muscle weakness of the legs may be due to anti TIF-1 gamma antibody-positive DM. Rash of face/neck/chest/hands is likely dermatomyositis related. Dysphagia can be a symptom of dermatomyositis as well due to weakness of muscles of swallowing. Recent positive SUE fits with her clinical picture. In light of progressive dysphagia and worsening prox muscle weakness - and overall clinical status continuing to worsen -initiated high-dose steroids -- Solumedrol 125mg IV BID PM of 09/10/22. Thus, today is ~day #[address] Jackson's recs - change to prednisone 50mg via PEG daily x 2 weeks, then 40mg daily after that, and so forth. Start prednisone tomorrow 09/17. Completed IVIG x 5 days. Will have such again in 4 weeks. Increased PPI to twice daily dosing for GI prophy while on high-dose steroids. The above care plan has been reviewed with [facility], Dr Jackson, who consulted formally - appreciate his consult & recs. If malignancy-related dermatomyositis is indeed present is there still un derlying active breast ca? CT chest/abd/pelvis does not show obvious recurrence or metastatic disease although there is thickening of the left chest wall in vicinity of prior mastectomy. Recent bone scan was negative for skeletal mets. Need for MRI brain? CT head recently neg for obvious mets. I spoke with Dr Morgan from oncology - if patient could tolerate would pursue brain MRI but defer for a few more days until respiratory status is much further along. Prognosis very poor given the severity of her dermatomyositis and progressive respiratory issues. (4) Dermatomyositis with respiratory involvement: Plan: see #3 above cause of progressive prox muscle weakness, dysphagia, rash, etc. rheum consult by Dr Jackson appreciated rash component has improved/resolved (5) SUE positive: Plan: see #3 above (6) Breast cancer: Plan: left sided stage 3 at diagnosis s/p chemo/XRT last spring/summer, followed by mastectomy 06/[address]arias extensive CT imaging and bone scan without obvious recurrence/mets although most recent CT chest with "thickening" of left chest wall noted see discussion above obtain MRI brain if and when possible (7) Severe protein-calorie malnutrition: Plan: ongoing, present since spring 2021 in the setting of newly diagnosed breast ca and neoadjuvant chemo/radiation during that time period. s/p PEG tube placement 01/2022. remains on enteral nutrition via PEG (Peptamen 1.5). patient is currently strict NPO due to ongoing dysphagia/aspiration. plan for enteral feedings - run feedings DURING THE DAY resume at 30cc/hr to ensure she can tolerate hold feedings at night-time while on CPAP will need nutrition to reassess her enteral feeding goals/nutritional goals (8) Leukocytosis: Plan: severe at time of admission - resolved part of the leukocytosis may have been steroid-related; part of the elevated wbc due to severe pneumonia either way WBC count is normal (9) Hypertension: Plan: cont metoprolol 50mg BID (10) Vitamin B12 deficiency: Plan: dx earlier this fall - level now improved / normal (11) Hyponatremia: Plan: suspected SIADH baseline Na level about 130 Na levels acceptable last few days (12) Chronic obstructive pulmonary disease: Plan: suspected emphysematous changes on imaging long standing tobacco history cont schedules bronchodilators steroids supportive care (13) Acute metabolic encephalopathy: Plan: resolved back to baseline likely combination of meds (ativan , etc), acute illness (pneumonia, etc) (14) Dysphagia: Plan: progressive since earlier this fall extensive work-up -- speech therapy, ENT, GI, neurology all have been involved in her care etiology previously elusive dx with dermatomyositis with oropharyngeal muscle involvement as cause of severe dysphagia see above re: steroids, IVIG, etc strict NPO (15) DVT prophylaxis: Plan: lovenox 30mg daily - she states she will comply ; had been declining her lovenox last week (16) Hypomagnesemia: Plan: replaced resolved (17) Candidiasis of mouth and esophagus: Plan: nystatin 5cc qid - nurses swabbing the oral mucosa with nystatin (18) Volume overload: Plan: suspected lasix 20mg IV x 1 09/13 lasix 40mg IV x 1 09/14 lasix 20mg IV x 1 09/15 volume status looks euvolemic and BUN maxx considerably with diuresis Plan updated pt's daughter at bedside today extensively if any further worsening --- obtain palliative care consultation to address goals of care prognosis is guarded Admission and Anticipated Discharge Date Admission Date: September 02, 2022 Subjective events of overnight noted tube feedings at 1/2 the previous rate started last pm about midnight was found to have hypoxia with sats in the 70s [place] O2 changed to CPAP she wore CPAP for 3-4 hours she dislikes the CPAP tremendously - makes her very anxious to have it on she is back to [place] o2 this am during my visit her daughter and daughter's significant other were present at bedside patient wants food desperately - misses eating; "I'm so hungry" cough has overall improved strength of her voice is better we discussed the CPAP and she agreed to use it tonight as long as she has anxiety medication tele - wnl Review of Systems Review of Systems: gen - weak, fatigued; no fevers cv - denies cp today; denies orthopnea pulm - occasional cough; dyspneic intermittently GI - no pain, no nausea - dean in place musculo - still with significant prox muscle weakness of arms/legs - but no worse than previous psych - severe anxiety Physical Exam Physical Exam: gen - comfortable, no distress, strength of voice is much better than earlier in the week; cachectic mouth - MMM neck - no JVD heart - RRR, s1 s2, no murmur lungs - CTA anteriorly, decreased BS bases, overall airation continues to improve each day l chest - a-port clean abd - soft NT ND BS+; PEG tube site clean ext - no edema, pulses 2+ b/l skin - erythematous rash over most of face, neck and chest continues to resolve; rash on hands resolved Results & Data Results & Data ([facility]) Vital Signs (Past 12 Hours) Vital Signs Temp Pulse Pulse Resp BP Pulse Ox O2 Del Method 09/16/22 19:45 70 18 95 Nasal Cannula 09/16/22 19:40 36.7 C 78 18 168/85 H 95 High Flow Nasal Cannula 09/16/22 16:36 36.9 C 90 18 165/79 H 91 High Flow Nasal Cannula 09/16/22 15:47 75 09/16/22 13:00 95 Nasal Cannula 09/16/22 13:05 66 18 90 Nasal Cannula 09/16/22 11:19 37.0 C 64 16 169/79 H 99 Nasal Cannula 09/16/22 10:35 93 Nasal Cannula 09/16/22 09:02 98 Oxymask O2 Flow Rate 09/16/22 19:45 8 09/16/22 19:40 8 09/16/22 16:36 8 09/16/22 15:47 09/16/22 13:00 4 09/16/22 13:05 5 09/16/22 11:19 2 09/16/22 10:35 2 09/16/22 09:02 4 Laboratory Results Laboratory Results - last 48 hr 09/15/22 09/16/22 09/16/22 12:22 05:38 05:38 WBC 14.16 H RBC 3.00 L Hgb 9.4 L Hct 28.2 L MCV 94.0 MCH 31.3 MCHC 33.3 RDW Std Deviation 50.4 H RDW Coeff of Emil 14.8 H Plt Count MPV Plt Count ,Citrate VBG pH VBG pCO2 VBG pO2 VBG HCO3 VBG O2 Saturation VBG Base Excess Sodium 130 L Potassium 3.2 L Chloride 86 L Carbon Dioxide 39 H Anion Gap 5 BUN 48 H Creatinine 0.66 Est Cr Clr Drug Dosing 57.3 Est GFR ( Amer) 101.6 Est GFR (Non-Af Amer) 87.6 BUN/Creatinine Ratio 72.7 H Glucose 141 H POC Glucose 121 H Calcium 9.2 Magnesium C-Reactive Protein B-Natriuretic Peptide 09/16/22 09/16/22 05:38 05:44 WBC RBC Hgb Hct MCV MCH MCHC RDW Std Deviation RDW Coeff of Emil Plt Count MPV Plt Count ,Citrate 342 VBG pH VBG pCO2 VBG pO2 VBG HCO3 VBG O2 Saturation VBG Base Excess Sodium Potassium Chloride Carbon Dioxide Anion Gap BUN Creatinine Est Cr Clr Drug Dosing Est GFR ( Amer) Est GFR (Non-Af Amer) BUN/Creatinine Ratio Glucose POC Glucose Calcium Magnesium 2.1 C-Reactive Protein B-Natriuretic Peptide PG Care Time/CCT Total # of Minutes Spent Total Time Spent with Patient: Total time spent is greater than 50% in coordination of care (as documented) at patient's floor/unit and/or counseling patient: Coding Level of Care Code 56206 Subseq Hosp Care Lvl 3 Diagnoses Acute respiratory failure with hypoxia J96.01 Bilateral pneumonia J18.9 Myositis M60.9 Dermatomyositis with respiratory involvement M33.91 SUE positive R76.8 Breast cancer C50.912 Breast location: unspecified site of breast Estrogen receptor status: unspecified Laterality: left Patient sex: female Severe protein-calorie malnutrition E43 Leukocytosis D72.829 Hypertension I10 Hypertension type: primary hypertension Vitamin B12 deficiency E53.8 Hyponatremia E87.1 Chronic obstructive pulmonary disease J44.9 Acute metabolic encephalopathy G93.41 Dysphagia R13.10 DVT prophylaxis Z29.9 Hypomagnesemia E83.42 Candidiasis of mouth and esophagus B37.81; B37.0 Volume overload E87.70 (1) Breast cancer Breast location: unspecified site of breast Estrogen receptor status: unspecified Laterality: left Patient sex: female Qualified Code(s): C50.912 - Malignant neoplasm of unspecified site of left female breast (2) Hypertension Hypertension type: primary hypertension Qualified Code(s): I10 - Essential (primary) hypertension
[2022-09-16] MEDS: PEPTAMEN 1.5 CAL 1,000 ML BAG PEG SCH (20:53)
[2022-09-16] MEDS: LORazepam 2 MG/1 ML VIAL IV SCH (20:53)
[2022-09-17] MEDS: INSULIN ASPART PER UNIT SC SCH ×4 (00:31→19:24)
[2022-09-17] MEDS ORDERED: LORazepam 2 MG/1 ML VIAL IV STA ×3 (00:32→15:57)
[2022-09-17] MEDS: IPRATROPIUM BROMIDE NEB SOLN 0.02% 2.5 ML VIAL INH SCH ×4 (00:47→19:20)
[2022-09-17] MEDS: LEVALBUTEROL 1.25MG/0.5ML NEB INH SCH ×4 (00:48→19:20)
[2022-09-17] MEDS: guaiFENesin SUGAR FREE 100 MG/5 ML UDC GT SCH ×3 (00:52→19:27)
[2022-09-17] MEDS: TUBE FEEDING WATER FLUSH PEG SCH ×5 (00:52→19:26)
[2022-09-17 01:13] LABS: Base Excess VBG 16.6 mEq/L; HCO3 VBG 42 mmol/L; Oxygen Saturation VBG < 60.0 %; PCO2 VBG 53 mmHg (38-50); PO2 VBG 30 mmHg; pH VBG 7.51 (7.36-7.41)
[2022-09-17] MEDS: HYDROmorphone INJ 0.5 MG/0.5 ML SYR IV PRN ×2 (02:40→19:02)
[2022-09-17] MEDS ORDERED: methylPREDNISolone 125 MG in SYRINGE 0 ML IV ONE (03:30)
[2022-09-17] MEDS: SODIUM CHLOR 7% 4 ML NEB NEB SCH ×3 (05:48→22:26)
[2022-09-17] MEDS ORDERED: predniSONE 50 MG TAB PEG SCH (09:00)
--- NOTE | 2022-09-17 09:02 | XRay Report ---
XR chest 1V portable CLINICAL HISTORY: PNA TECHNIQUE: Single frontal radiograph of the chest was obtained. Comparison: Comparison is made to chest radiograph 09/16/2022 FINDINGS: A port catheter is seen. The cardiomediastinal silhouette is normal. Right lower lung airspace opacit ies are seen. There is a right moderate pleural effusion. IMPRESSION: Interval development of right airspace pleural effusion. New right airspace opacity likely represents atelectasis with or without superimposed aspiration/pneumonia. ACT 112: Negative or not required by law. Electronically signed by: Benoit Fry M.D. 09/17/2022 9:01 AM
--- NOTE | 2022-09-17 12:18 | Electrocardiogram Report ---
Test Reason : Blood Pressure : / mmHG Vent. Rate : 091 BPM Atrial Rate : 091 BPM P-R Int : 124 ms QRS Dur : 078 ms QT Int : 368 ms P-R-T Axes : 072 060 084 degrees QTc Int : 452 ms Normal sinus rhythm Anteroseptal infarct (cited on or before 31-JAN-2022) Abnormal ECG When compared with ECG of 13-SEP-2022 11:00, Premature atrial complexes are no longer Present Nonspecific T wave abnormality now evident in Lateral leads Confirmed by Gregorio Antonio ([id number]) on 09/17/2022 12:18:14 PM Referred By: REFERRED SELF Confirmed By:Gregorio Antonio
[2022-09-17] MEDS: metroNIDAZOLE 500 MG/100 ML BAG IV SCH ×2 (13:13→21:11)
--- NOTE | 2022-09-17 14:11 | Pulmonology Progress Note ---
Date of Service September 17, 2022 Assessment & Plan (1) Right lower lobe pulmonary infiltrate: (2) Neuromuscular respiratory weakness: (3) Failure to thrive in adult: (4) Breast cancer: Breast location: unspecified site of breast Estrogen receptor status: unspecified Patient sex: female Laterality: left Qualified Code(s): C50.912 - Malignant neoplasm of unspecified site of left female breast (5) Myositis: (6) Goals of care, counseling/discussion: Plan I had a lengthy discussion with the patient's daughter outside the room, Shayla Ivory, regarding the patient's overall condition. She notes that she has been very frustrated with her care as of late and is very concerned about her respiratory status currently. She understands that her mother's health is declining overall and she is potentially in the dying process. The patient is essentially not able to tolerate her PEG tube feedings due to recurrent aspiration. We will hold off on tube feeds today. Patient does have a history with the palliative care providers at [facility] and has seen Dr. Cobb in the past. Will consult palliative care given the patient's essentially end-stage condition from severe neuromuscular weakness that has been refractory to steroids and IVIG therapy. She also has a history of localized breast cancer. The patient's daughter is very clear that the patient would not want intubation, mechanical ventilation or advanced ACLS procedures in the event of a cardiac or respiratory arrest. She is uncertain of her mother's wishes with respect to comfort measures and hospice. She is very clear that she would not want her to be transported home in such an ill condition. I reiterated to the daughter that we can certainly transition to inpatient comfort measures when necessary and perhaps after discussion with the palliative care provider. The patient's daughter is also requesting that we only use percussive vest therapy when the patient is lucid and awake. She notes it is very disconcerting to see her getting percussive vest therapy when she is essentially obtunded which I agreed should be avoided. We will continue hypertonic saline twice daily and CoughAssist when the patient is more lucid and able to participate with cough. Otherwise, I have added back cefepime and Flagyl given the concern of aspiration pneumonia in the right lower lobe. MRSA screen pending. If the MRSA screen is positive, will start vancomycin. I transitioned several medications over from PEG to IV including metoprolol, pre dnisone (to IV methylprednisone) and Prevacid (to Protonix IV). I have discontinued magnesium oxide. I have placed a hold on Gabapentin. Overall, her condition is extremely poor and her prognosis is very guarded at this time. I also discussed the case with the patient's hospitalist and bedside nurse. Admission and Anticipated Discharge Date Admission Date: September 02, 2022 Subjective She is very lethargic and had an aspiration event overnight. Her FiO2 requirements have increased significantly and she is currently on high flow oxygen. Her cough is weak. She denies any shortness of breath when laying in bed, but overall and her review of systems is limited due to lethargic status. She does appear to be protecting her airway. Review of Systems Review of Systems: Limited due to the patient's cognitive status Physical Exam Physical Exam: Constitutional: Frail and cachectic appearing female in no apparent distress. Laying in bed. Oxygen tubing in place. Eyes: Pupils are equal round and reactive to light. Conjunctivae are normal. Anicteric sclera. Ears nose, mouth and throat: Nasal cannula in place. Otherwise this portion of the exam was deferred. Neck: Trachea is midline. Visual inspection is normal. Respiratory: Crackles in the right lower lobe. Mild tachypnea. Cardiovascular: Regular rate and rhythm. No murmurs. No edema. Gastrointestinal: PEG tube in place. No obvious distention. Musculoskeletal: No cyanosis. Patient is able to move all extremities. Diffusely weak. Skin: No rashes, warm dry and intact. Neurologic: No obvious focal neurological deficits seen. Psychiatric: Lethargic Results & Data Results & Data ([facility]) Vital Signs (Past 12 Hours) Vital Signs Temp Pulse Pulse Pulse Resp BP Pulse Ox 09/17/22 13:48 93 H 20 98 09/17/22 11:28 36.6 C 92 H 18 140/79 97 09/17/22 11:56 09/17/22 11:18 97 H 25 H 100 09/17/22 07:55 36.3 C L 95 H 18 159/98 H 100 09/17/22 05:15 28 H 86 L 09/17/22 05:15 119 H 119 H 28 H 85 L 09/17/22 04:46 36.5 C 127 H 25 H 159/101 H 82 L 09/17/22 02:15 78 L 09/17/22 03:29 36.4 C L 131 H 21 84 L 09/17/22 02:45 133 H 27 H 86 L Pulse Ox O2 Del Method O2 Del Method O2 Flow Rate O2 Flow Rate FiO2 FiO2 09/17/22 13:48 High Flow Nasal Cannula 35 65 09/17/22 11:28 BiPAP 09/17/22 11:56 98 High Flow Nasal Cannula 35 70 09/17/22 11:18 100 09/17/22 07:55 BiPAP 09/17/22 05:15 100 09/17/22 05:15 BiPAP 100 09/17/22 04:46 CPAP 100 09/17/22 02:15 CPAP 100 09/17/22 03:29 CPAP 100 09/17/22 02:45 100 PG Care Time/CCT Total # of Minutes Spent Total Time Spent with Patient: Total time spent is greater than 50% in coordination of care (as documented) at patient's floor/unit and/or counseling patient: Coding Level of Care Code 90883 Subseq Hosp Care Lvl 3 Diagnoses Right lower lobe pulmonary infiltrate R91.8 Neuromuscular respiratory weakness G70.9; J99 Failure to thrive in adult R62.7 Breast cancer C50.912 Breast location: unspecified site of breast Estrogen receptor status: unspecified Patient sex: female Laterality: left Myositis M60.9 Goals of care, counseling/discussion Z71.89
[2022-09-17] MEDS: CYANOCOBALAMIN (B-12) 500 MCG TABLET PEG SCH (15:00)
[2022-09-17] MEDS: ENOXAPARIN INJ 30 MG/0.3 ML SYR SQ SCH (15:00)
[2022-09-17] MEDS: GABAPENTIN 250 MG/5 ML 470 ML BTL PEG SCH (15:01)
[2022-09-17] MEDS: POTASSIUM CHLORIDE 20 MEQ/15 ML UDC PEG SCH ×2 (15:01→19:26)
[2022-09-17] MEDS: NYSTATIN SUSP 500,000 U/5 ML UDC PO SCH ×3 (15:01→20:58)
[2022-09-17] MEDS: [UNRECOGNIZED DRUG - REMARK] SCH (15:02)
[2022-09-17] MEDS: METOPROLOL TARTRATE 1 MG/ML VIAL IV SCH ×2 (15:06→21:13)
[2022-09-17] MEDS: LANTUS PER UNIT CHARGE SQ SCH (15:21)
[2022-09-17] MEDS: CEFEPIME 2,000 MG in SYRINGE 0 ML IV SCH (15:43)
[2022-09-17] MEDS: methylPREDNISolone 40 MG in SYRINGE 0 ML IV SCH (15:43)
[2022-09-17] MEDS: LANSOPRAZOLE 30 MG SOLTAB PEG SCH (19:26)
[2022-09-17] MEDS: PEPTAMEN 1.5 CAL 1,000 ML BAG PEG SCH (19:26)
[2022-09-17] MEDS: MAGNESIUM OXIDE 400 MG TAB PEG SCH (19:26)
[2022-09-17] MEDS: METOPROLOL TARTRATE 50 MG TAB OG SCH (19:26)
[2022-09-17] MEDS: PANTOprazole 40 MG in SYRINGE 0 ML IV SCH (21:12)
--- NOTE | 2022-09-17 22:11 | Hospitalist Progress Note ---
Date of Service September 17, 2022 Assessment & Plan (1) Acute respiratory failure with hypoxia: Plan: 2nd to b/l lower lobe pneumonia, mucoid impaction of bronchi especially on right, RML collapse, some element of volume overload/pulmonary edema, and emphysema. Acute worsening on 09/13 AM. STAT CTA Chest 09/13 at that time without PEs. However - progressive mucoid impaction with RML collapse seen. Effusions b/l about the same. Background of emphysema. Seen by Dr Lyles - pulmonary previously. She had improvement since then due to use of CPAP with HFNC, hypertonic saline nebs, xopenex/atrovent nebs, cough assist device, frequent side turning, etc. But now is back on bipap, resumed IV steroids, resume cefepime, metronidazol, consulted palliative care. Consulted [facility] Intermittent episodes of hypoxia and acute worsening likely aspiration events, mucoid impaction, shunting, etc. Plan - cont pulmonary toilet as above; Keep strict NPO. will stop tube feedings as patient appears to be aspirating this. Reached out to Dr. Almonte Appreciate Dr Lyles's recommendations. If she were to have recurrent mucous plugging she is a very poor candidate for bronchoscopy to rid her airways of mucoid impaction. Likely to end up on vent, and she is DNR/DNI. (2) Bilateral pneumonia: Plan: b/l lower lobe, RLL/RML>LLL. 2nd aspiration. overall clinically worse 09/13/22 (see above) due to progressive mucoid impaction. s/p 10 days of IV zosyn - stop today. (3) Myositis: Plan: During her 06/2022 to 07/2022 prolonged hospitalization she underwent an extensive work-up looking for her b/l LE weakness and back pain. Most of her weakness was of the hip girdle muscles. She underwent MRIs of the spine along with extensive blood work. She was on empiric steroids (Dexamethasone) at that time. CPK was mildly elevated but aldolase was wnl. CRP was 0. She was evaluated by [facility] Neurology during the prior hospitalization. Her LE weakness gradually improved during that hospital stay and she was walking nearly 100 feet by time of discharge. Studies for myasthenia gravis, autoimmune disease (SUE, etc), and other neurological conditions were dispatched. She had f/u with [facility] Neurology shortly after discharge. EMGs of all 4 limbs were being planned. Her weakness progressed over July into August; she ultimately was recently readmitted on 09/02/22. Prior attending, Dr Nur, dispatched additional blood tests for myositis earlier this stay (myositis-specific auto ab's). MRIs of b/l thighs showed significant inflammation of the thigh muscles. She underwent a right thigh muscle bx on 09/06/22 by general surgery; results still pending. 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 This is highly associated with dermatomyositis and underlying malignancy. Thus, her proximal muscle weakness of the legs may be due to anti TIF-1 gamma antibody-positive DM. Rash of face/neck/chest/hands is likely dermatomyositis related. Dysphagia can be a symptom of dermatomyositis as well due to weakness of muscles of swallowing. Recent positive SUE fits with her clinical picture. In light of progressive dysphagia and worsening prox muscle weakness - and overall clinical status continuing to worsen -initiated high-dose steroids -- Solumedrol 125mg IV BID PM of 09/10/22. Thus, today is ~day #[address] Jackson's recs - change to prednisone 50mg via PEG daily x 2 weeks, then 40mg daily after that, and so forth. Start prednisone tomorrow 09/17. Completed IVIG x 5 days. Will have such again in 4 weeks. Increased PPI to twice daily dosing for GI prophy while on high-dose steroids. The above care plan has been reviewed with [facility] Rheumatology, Dr Jackson, who consulted formally - appreciate his consult & recs. If malignancy-related dermatomyositis is indeed present is there still underlying active breast ca? CT chest/abd/pelvis does not show obvious recurrence or metastatic disease although there is thickening of the left chest wall in vicinity of prior mastectomy. Recent bone scan was negative for skeletal mets. Need for MRI brain? CT head recently neg for obvious mets. I spoke with Dr Morgan from oncology - if patient could tolerate would pursue brain MRI but defer for a few more days until respiratory status is much further along. Prognosis very poor given the severity of her dermatomyositis and progressive respiratory issues. (4) Dermatomyositis with respiratory involvement: Plan: see #3 above cause of progressive prox muscle weakness, dysphagia, rash, etc. rheum consult by Dr Jackson appreciated rash component has improved/resolved (5) SUE positive: Plan: see #3 above (6) Breast cancer: Plan: left sided stage 3 at diagnosis s/p chemo/XRT last spring/summer, followed by mastectomy 06/[address]arias extensive CT imaging and bone scan without obvious recurrence/mets although most recent CT chest with "thickening" of left chest wall noted see discussion above obtain MRI brain if and when possible (7) Severe protein-calorie malnutrition: Plan: ongoing, present since spring 2021 in the setting of newly diagnosed breast ca and neoadjuvant chemo/radiation during that time period. s/p PEG tube placement 01/2022. remains on enteral nutrition via PEG (Peptamen 1.5). patient is currently strict NPO due to ongoing dysphagia/aspiration. plan for enteral feedings - run feedings DURING THE DAY resume at 30cc/hr to ensure she can tolerate hold feedings at night-time while on CPAP will need nutrition to reassess her enteral feeding goals/nutritional goals (8) Leukocytosis: Plan: severe at time of admission - resolved part of the leukocytosis may have been steroid-related; part of the elevated wbc due to severe pneumonia either way WBC count is normal (9) Hypertension: Plan: cont metoprolol 50mg BID (10) Vitamin B12 deficiency: Plan: dx earlier this fall - level now improved / normal (11) Hyponatremia: Plan: suspected SIADH baseline Na level about 130 Na levels acceptable last few days (12) Chronic obstructive pulmonary disease: Plan: suspected emphysematous changes on imaging long standing tobacco history cont schedules bronchodilators steroids supportive care (13) Acute metabolic encephalopathy: Plan: resolved back to baseline likely combination of meds (ativan , etc), acute illness (pneumonia, etc) (14) Dysphagia: Plan: progressive since earlier this fall extensive work-up -- speech therapy, ENT, GI, neurology all have been involved in her care etiology previously elusive dx with dermatomyositis with oropharyngeal muscle involvement as cause of severe dysphagia see above re: steroids, IVIG, etc strict NPO (15) DVT prophylaxis: Plan: lovenox 30mg daily - she states she will comply ; had been declining her lovenox last week (16) Hypomagnesemia: Plan: replaced resolved (17) Candidiasis of mouth and esophagus: Plan: nystatin 5cc qid - nurses swabbing the oral mucosa with nystatin (18) Volume overload: Plan: suspected lasix 20mg IV x 1 09/13 lasix 40mg IV x 1 09/14 lasix 20mg IV x 1 09/15 volume status looks euvolemic and BUN maxx considerably with diuresis Plan updated pt's daughter at bedside today extensively if any further worsening --- obtain palliative care consultation to address goals of care prognosis is guarded Admission and Anticipated Discharge Date Admission Date: September 02, 2022 Subjective 71 yo female has required intermittent bipap. Review of Systems Review of Systems: All systems reviewed & are unremarkable except as noted in HPI & below Physical Exam Physical Exam: gen - comfortable on bipap, no distress, cachectic mouth - MMM neck - no JVD heart - RRR, s1 s2, no murmur lungs - CTA anteriorly, decreased BS bases chest - a-port clean abd - soft NT ND BS+; PEG tube site clean ext - no edema, pulses 2+ b/l skin - erythematous rash over most of face, neck and chest continues to resolve; rash on hands resolved Results & Data Results & Data ([facility]) Vital Signs (Past 12 Hours) Vital Signs Temp Pulse Pulse Pulse Resp BP BP 09/17/22 21:13 85 160/95 H 09/17/22 19:23 90 18 09/17/22 19:04 36.9 C 92 H 22 160/95 H 09/17/22 17:35 20 09/17/22 16:33 36.6 C 88 16 159/95 H 09/17/22 16:00 82 22 09/17/22 15:06 96 H 154/89 H 09/17/22 15:04 96 H 154/89 H 09/17/22 13:48 93 H 20 09/17/22 11:28 36.6 C 92 H 18 140/79 09/17/22 11:56 09/17/22 11:18 97 H 25 H Pulse Ox Pulse Ox O2 Del Method O2 Del Method O2 Flow Rate O2 Flow Rate FiO2 09/17/22 21:13 09/17/22 19:23 96 High Flow Nasal Cannula 40 65 09/17/22 19:04 99 High Flow Nasal Cannula 40 72 09/17/22 17:35 99 High Flow Nasal Cannula 40 70 09/17/22 16:33 99 Room Air, BiPAP 09/17/22 16:00 95 70 09/17/22 15:06 09/17/22 15:04 09/17/22 13:48 98 High Flow Nasal Cannula 35 65 09/17/22 11:28 97 BiPAP 09/17/22 11:56 98 High Flow Nasal Cannula 35 09/17/22 11:18 100 100 FiO2 09/17/22 21:13 09/17/22 19:23 09/17/22 19:04 09/17/22 17:35 09/17/22 16:33 09/17/22 16:00 09/17/22 15:06 09/17/22 15:04 09/17/22 13:48 09/17/22 11:28 09/17/22 11:56 70 09/17/22 11:18 PG Care Time/CCT Total # of Minutes Spent Total Time Spent with Patient: Total time spent is greater than 50% in coordination of care (as documented) at patient's floor/unit and/or counseling patient: Coding Level of Care Code 02560 Subseq Hosp Care Lvl 3 Diagnoses Acute respiratory failure with hypoxia J96.01 Bilateral pneumonia J18.9 Myositis M60.9 Dermatomyositis with respiratory involvement M33.91 SUE positive R76.8 Breast cancer C50.912 Breast location: unspecified site of breast Estrogen receptor status: unspecified Laterality: left Patient sex: female Severe protein-calorie malnutrition E43 Leukocytosis D72.829 Hypertension I10 Hypertension type: primary hypertension Vitamin B12 deficiency E53.8 Hyponatremia E87.1 Chronic obstructive pulmonary disease J44.9 Acute metabolic encephalopathy G93.41 Dysphagia R13.10 DVT prophylaxis Z29.9 Hypomagnesemia E83.42 Candidiasis of mouth and esophagus B37.81; B37.0 Volume overload E87.70 Time Spent (min) 35 (1) Breast cancer Breast location: unspecified site of breast Estrogen receptor status: unspecified Laterality: left Patient sex: female Qualified Code(s): C50.912 - Malignant neoplasm of unspecified site of left female breast (2) Hypertension Hypertension type: primary hypertension Qualified Code(s): I10 - Essential (primary) hypertension
[2022-09-18] MEDS: HYDROmorphone INJ 0.5 MG/0.5 ML SYR IV PRN ×3 (00:21→20:33)
[2022-09-18] MEDS: LEVALBUTEROL 1.25MG/0.5ML NEB INH SCH ×4 (01:08→19:55)
[2022-09-18] MEDS: IPRATROPIUM BROMIDE NEB SOLN 0.02% 2.5 ML VIAL INH SCH ×4 (01:08→19:55)
[2022-09-18] MEDS: INSULIN ASPART PER UNIT SC SCH ×4 (01:33→17:16)
[2022-09-18] MEDS: LORazepam 2 MG/1 ML VIAL IV SCH (01:33)
[2022-09-18] MEDS: TUBE FEEDING WATER FLUSH PEG SCH ×7 (01:34→23:26)
[2022-09-18] MEDS: CEFEPIME 2,000 MG in SYRINGE 0 ML IV SCH ×2 (03:11→13:50)
[2022-09-18] MEDS ORDERED: ACETAMINOPHEN 1,000 MG/100 ML VIAL IV PRN (05:54)
[2022-09-18] MEDS: metroNIDAZOLE 500 MG/100 ML BAG IV SCH ×3 (06:00→22:13)
[2022-09-18] MEDS: ACETAMINOPHEN 10MG/ML Custom 650 MG in EMPTY BAG 0 ML IV PRN ×2 (06:38→16:07)
[2022-09-18] MEDS: SODIUM CHLOR 7% 4 ML NEB NEB SCH ×4 (07:06→22:45)
[2022-09-18] MEDS: CYANOCOBALAMIN (B-12) 500 MCG TABLET PEG SCH (08:24)
[2022-09-18] MEDS: PANTOprazole 40 MG in SYRINGE 0 ML IV SCH ×2 (08:25→20:51)
[2022-09-18] MEDS: methylPREDNISolone 40 MG in SYRINGE 0 ML IV SCH (08:25)
[2022-09-18] MEDS: METOPROLOL TARTRATE 1 MG/ML VIAL IV SCH ×3 (08:25→20:54)
[2022-09-18] MEDS: NYSTATIN SUSP 500,000 U/5 ML UDC PO SCH ×4 (08:25→20:43)
[2022-09-18] MEDS: POTASSIUM CHLORIDE 20 MEQ/15 ML UDC PEG SCH ×2 (08:25→20:43)
[2022-09-18] MEDS: ENOXAPARIN INJ 30 MG/0.3 ML SYR SQ SCH (08:25)
[2022-09-18] MEDS: LANTUS PER UNIT CHARGE SQ SCH (08:27)
[2022-09-18] MEDS ORDERED: PANTOprazole 40 MG in SYRINGE 0 ML IV SCH (11:00)
[2022-09-18] MEDS: [UNRECOGNIZED DRUG - REMARK] SCH (12:09)
--- NOTE | 2022-09-18 13:19 | Palliative Care Consultation ---
Date of Consultation September 18, 2022 Assessment & Plan (1) Dyspnea: On high flow O2 with percussion therapy. She is not a candidate for bronchoscopy at this time. She gets very anxious with bipap and her daughter, Gilda, who is a nurse, feels that she becomes more anxious and confused with lorazepam. She does get relief with low dose IV hydromorphone. Recommend using hydromorphone rather than lorazepam with bipap as needed. (2) Dysphagia: with aspiration pneumonia, unable to tolerate tube feedings. She complains of feeling hungry and is asking about what she can have other than ice chips. We talked about popsicles and liquid given with ice chips. We discussed concern about aspiration and she understands this but is very uncomfortable without ice chips and sips. (3) Palliative care encounter: Mrs. Benson asked me what the solution was to her predicament. She has asked for honest answer about her prognosis. We talked openly about concern that even enteral nutrition is being aspirated and exacerbating her respiratory problems. Without nutrition, she will continue to get weaker and will . She is clearly very upset about this. Her daughter, Gilda, is at bedside and very supportive. Mrs. Benson has consistently said that she wants to fight her illness and get better. To her, that would mean being independent and able to get out and do things. Unfortunately, that does not appear possible at this time. She and Gilda have both talked about continuing to fight. We discussed continuing current treatments, which is their preference at this time. In the past, Gilda had to make the decision to withdraw ventilator support with her father and both are in agreement that they would not want intubation if her respiratory failure progressed. Mrs. Benson understands that if at any point, she feels that she does not want to continue current treatment, we can shift focus of care to comfort and symptom management. History of Present Illness Reason for Consultation: goals of care Requesting Physician: Dr. 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 She has had complicated course with pain, failure to thrive, GI bleed, herpes zoster and bacteremia. She has had generalized and proximal muscle weakness and muscle biopsy consistent with dermatomyositis. She had PEG tube placement for nutrition but has struggled with dysphagia and aspiration related to her muscle weakness. She is currently being treated for aspiration pneumonia and has had hypoxic respiratory failure with mucous plugging and RML collapse. She is on high flow O2 and Bipap with aggressive pulmonary toilet. She has persistent muscle weakness refractory to IVIG and high dose steroids. Due to previous aspiration, her tube feedings are on hold. She is awake and alert. She denies pain and feels that shortness of breath is better that it had been. Allergies Allergy/AdvReac Type Severity Reaction Status Date / Time pistachio nut AdvReac Severe Red face Verified 09/02/22 21:15 and hands ~ Throwing up Home Medications Medication Instructions Recorded Confirmed Type albuterol sulfate 90 mcg/actuation 2 inh inhalation QID PRN shortness 08/03/22 09/02/22 Rx aerosol inhaler of breath or wheezing or cough #8.5 grams cyanocobalamin (vitamin B-12) 500 1,000 mcg PEG QAM #30 tabs 08/03/22 09/02/22 Rx mcg tablet nut.tx.impaired digest fxn 0.068 1,000 ml G-tube DAILY@2000 #1,000 08/03/22 09/02/22 Rx gram-1.5 kcal/mL oral liquid mL (Peptamen 1.5) polyethylene glycol 3350 17 17 g PO DAILY PRN Constipation 08/23/22 09/02/22 History gram/dose oral powder (Miralax) tramadol 50 mg tablet 50 mg feeding tube Q6H PRN Pain 08/23/22 09/02/22 History acetaminophen 325 mg tablet 650 mg feeding tube BID 09/02/22 09/02/22 History (Tylenol) duloxetine 30 mg capsule,delayed 30 mg DAILY 09/02/22 09/02/22 History release gabapentin 300 mg capsule 300 mg feeding tube TID 09/02/22 09/02/22 History lansoprazole 15 mg delayed 15 mg feeding tube DAILY 09/02/22 09/02/22 History release,disintegrating tablet levofloxacin 500 mg tablet 500 mg feeding tube QPM 09/02/22 09/02/22 History magnesium oxide 400 mg feeding tube BID 09/02/22 09/02/22 History ondansetron HCl 8 mg tablet 8 mg feeding tube Q8H PRN 09/02/22 09/02/22 History NAUSEA/VOMITING oxycodone 5 mg tablet 5 mg feeding tube .Q4-6HR PRN Pain 09/02/22 09/02/22 History Patient History Medical History Breast cancer Chronic obstructive pulmonary disease Constipation Dysphagia Elevated AST (SGOT) Failure to thrive in adult Former smoker Goals of care, counseling/discussion Hypertension Hyponatremia Leg weakness, bilateral Low back pain Malignant neoplasm of central portion of left breast in female, estrogen receptor negative (01/04/22) Neuromuscular respiratory weakness Pancytopenia Peripheral neuropathy Port-A-Cath in place Right lower lobe pulmonary infiltrate Severe protein-calorie malnutrition Surgical History Encounter for biopsy (09/06/22) Right quadriceps muscle biopsy. Dr. Baumann History of left mastectomy Hx of tonsillectomy PEG (percutaneous endoscopic gastrostomy) status Family History Mother Hypertension Sister Hypertension Brother Hypertension Father Lung cancer Social History Smoking Status: Current some day smoker Tobacco Type: Cigarettes Cigarettes Per Day: 3; Second Hand Exposure: No; Hx Alcohol Use: No Hx Substance Use: No Preferred Language: Jamaican Communication Ability: Effective Hearing Ability: Normal Stallion Manager Required: No Beliefs That Will Affect Care: None marital status: / Current Living Situation: Family current occupational status: retired How many Children do You have: 1 Feels Safe at Home: Yes Diet Comment: Peg tube feeds, Boost daily; small amounts orally during the past year weight has: decreased > 10 lbs Dental Care, Regularly: Yes Physical Activity Frequency: Does not Exercise Seatbelt Use: always Do you think of yourself as: straight/heterosexual Gender Identity: Female Assistive Devices: Cane, Glasses and Walker Review of Systems Review of Systems: ESAS Pain 0/3 Dyspnea 1/3 NAusea 0/3 Fatigue 3/3 Drowsiness 0/3 PPS 30% Physical Exam Constitutional: + cachectic ENMT: Mouth: + dry oral mucous membranes Respiratory: + uses accessory muscles Cardiovascular: Rate/Rhythm: regular rate and regular rhythm Gastrointestinal (Abdomen): PEG tube Musculoskeletal: Extremities: + muscle atrophy Neurologic: Speech / Cognition: normal cognition Genitourinary: Skinner catheter Results & Data ([facility]) Vital Signs (Past 12 Hours) Vital Signs Temp Pulse Pulse Resp BP Pulse Ox O2 Del Method 09/18/22 11:59 97.3 F L 85 17 153/78 H 98 High Flow Nasal Cannula 09/18/22 11:03 87 18 99 High Flow Nasal Cannula 09/18/22 07:42 97.9 F 83 17 151/79 H 100 Room Air 09/18/22 07:30 High Flow Nasal Cannula 09/18/22 07:10 93 H 18 97 High Flow Nasal Cannula 09/18/22 06:25 74 09/18/22 03:13 125 H 93 High Flow Nasal Cannula O2 Flow Rate FiO2 09/18/22 11:59 40 09/18/22 11:03 35 50 09/18/22 07:42 09/18/22 07:30 09/18/22 07:10 40 55 09/18/22 06:25 09/18/22 03:13 40 55 PG Care Time/CCT Total # of Minutes Spent Total Time Spent: 89 Total Time Spent with Patient: Total time spent is greater than 50% in coordination of care (as documented) at patient's floor/unit and/or counseling patient: [id number] Symptom management, prognosis, goals of care, patient and family support and education Coding Level of Care Code 33211 Initial Inpt Care Lvl 3 Diagnoses Dyspnea R06.00 Dysphagia R13.10 Palliative care encounter Z51.5
[2022-09-18] MEDS: ONDANSETRON INJ 2 MG/ML 2 ML VIAL IV PRN (20:41)
[2022-09-18] MEDS: PEPTAMEN 1.5 CAL 1,000 ML BAG PEG SCH (21:15)
--- NOTE | 2022-09-18 21:56 | Hospitalist Progress Note ---
Date of Service September 18, 2022 Assessment & Plan (1) Acute respiratory failure with hypoxia: Plan: 2nd to b/l lower lobe pneumonia, mucoid impaction of bronchi especially on right, RML collapse, some element of volume overload/pulmonary edema, and emphysema. Acute worsening on 09/13 AM. STAT CTA Chest 09/13 at that time without PEs. However - progressive mucoid impaction with RML collapse seen. Since 09/13 she has continued with intermittent episodes of hypoxia and acute worsening likely aspiration events, mucoid impaction, shunting, etc. Some of the aspiration may be due to the tube feedings themselves; thus, PEG tube feedings on hold. She previously completed a 10-day course of IV zosyn; now back on Cefepime/flagyl due to new infiltrates on cxr. Previously completed 5+ days of high-dose solumedrol 125mg BID; was placed on 50mg prednisone/day for dermatomyositis; now she is back on methylprednisolone 40mg daily in abiodun of prednisone. Prognosis is quite guarded due to the recurrent respiratory issues, aspiration, respiratory weakness from deconditioning & dermatomyositis, etc etc. (2) Bilateral pneumonia: Plan: b/l lower lobe. 2nd aspiration. see #1 above. (3) Myositis: Plan: During her 06/2022 to 07/2022 prolonged hospitalization she underwent an extensive work-up looking for her b/l LE weakness and back pain. Most of her weakness was of the hip girdle muscles. She underwent MRIs of the spine along with extensive blood work. She was on empiric steroids (Dexamethasone) at that time. CPK was mildly elevated but aldolase was wnl. CRP was 0. She was evaluated by [facility] during the prior hospitalization. Her LE weakness gradually improved during that hospital stay and she was walking nearly 100 feet by time of discharge. Studies for myasthenia gravis, autoimmune disease (SUE, etc), and other neurological conditions were dispatched. She had f/u with [facility] shortly after discharge. EMGs of all 4 limbs were being planned. Her weakness progressed over July into August; she ultimately was recently readmitted on 09/02/22. Prior attending, Dr Nur, dispatched additional blood tests for myositis earlier this stay (myositis-specific auto ab's). MRIs of b/l thighs showed significant inflammation of the thigh muscles. She underwent a right thigh muscle bx on 09/06/22 by general surgery; results still pending. 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 This is highly associated with dermatomyositis and underlying malignancy. Thus, her proximal muscle weakness of the legs may be due to anti TIF-1 gamma antibody-positive DM. Rash of face/neck/chest/hands is likely dermatomyositis related. Dysphagia can be a symptom of dermatomyositis as well due to weakness of muscles of swallowing. Recent positive SUE fits with her clinical picture. In light of progressive dysphagia and worsening prox muscle weakness - and overall clinical status continuing to worsen -initiated high-dose steroids -- Solumedrol 125mg IV BID PM of 09/10/22. Completed 6 days of such. Was briefly on prednisone; now back to once daily solumedrol. Completed IVIG x 5 days. Will have such again in 4 weeks. Increased PPI to twice daily dosing for GI prophy while on high-dose steroids. The above care plan has been reviewed with [facility]ology, Dr Jackson, who consulted formally - appreciate his consult & recs. If malignancy-related dermatomyositis is indeed present is there still underlying active breast ca? CT chest/abd/pelvis does not show obvious recurrence or metastatic disease although there is thickening of the left chest wall in vicinity of prior mastectomy. Recent bone scan was negative for skeletal mets. Need for MRI brain? CT head recently neg for obvious mets. Prognosis very poor given the severity of her dermatomyositis and progressive respiratory issues. I will speak to Dr Jackson today or tomorrow to determine if anything else is available to treat the dermatomyositis, how long it may take for dysphagia and respiratory issues from the dermatomyositis to improve, etc. (4) Dermatomyositis with respiratory involvement: Plan: see #3 above cause of progressive prox muscle weakness, dysphagia, rash, etc. rheum consult by Dr Jackson appreciated rash component has improved/resolved (5) SUE positive: Plan: see #3 above (6) Breast cancer: Plan: left sided stage 3 at diagnosis s/p chemo/XRT last spring/summer, followed by mastectomy 06/[address]arias extensive CT imaging and bone scan without obvious recurrence/mets although most recent CT chest with "thickening" of left chest wall noted see discussion above (7) Severe protein-calorie malnutrition: Plan: ongoing, present since spring 2021 in the setting of newly diagnosed breast ca and neoadjuvant chemo/radiation during that time period. s/p PEG tube placement 01/2022. previously on enteral nutrition via PEG (Peptamen 1.5). tube feedings on hold due to concern of aspiration from such. TPN? j-tube placement under IR at a tertiary care center? trial of reglan to promote clearance of tube feedings? transition to hospice? other? (8) Leukocytosis: Plan: severe at time of admission - resolved part of the leukocytosis may have been steroid-related; part of the elevated wbc due to severe pneumonia either way WBC count is normal (9) Hypertension: Plan: cont metoprolol 50mg BID (10) Vitamin B12 deficiency: Plan: dx earlier this fall - level now improved / normal (11) Hyponatremia: Plan: suspected SIADH baseline Na level about 130 Na levels acceptable (12) Chronic obstructive pulmonary disease: Plan: suspected emphysematous changes on imaging long standing tobacco history cont schedules bronchodilators steroids supportive care (13) Acute metabolic encephalopathy: Plan: resolved back to baseline likely combination of meds (ativan , etc), acute illness (pneumonia, etc) (14) Dysphagia: Plan: 2nd to oropharyngeal involvement from dermatomyositis see above re: steroids, IVIG, etc (15) DVT prophylaxis: Plan: lovenox 30mg daily (16) Hypomagnesemia: Plan: replaced resolved (17) Candidiasis of mouth and esophagus: Plan: nystatin 5cc qid - nurses swabbing the oral mucosa with nystatin (18) Volume overload: Plan: suspected lasix 20mg IV x 1 09/13 lasix 40mg IV x 1 09/14 lasix 20mg IV x 1 09/15 volume status looks euvolemic and BUN maxx considerably with diuresis Plan updated pt's daughter at bedside today extensively appreciate palliative care consultation to address goals of care prognosis is guarded Admission and Anticipated Discharge Date Admission Date: September 02, 2022 Subjective events of last 36 hours noted need HFNC overnight - now over to standard cannula today daughter at bedside tube feedings on hold - only using PEG for meds tele overnight wnl both Ms Benson and her daughter express frustration with her ongoing decline and lack of response to therapy Ms Benson stated "I'm a fighter" and doesn't want to go a palliative route at this time she talked alot about her desire to take things by mouth - even if it's just ice chips, etc discussed the quandary we are in with treating the dermatomyositis and waiting for improvement from the recent high-dose steroids & IVIG series she denies any significant pain today denies dyspnea this am Review of Systems Review of Systems: gen - very weak, fatigued cv - no chest pain, no orthopnea pulm - some cough; no dyspnea at rest this am GI - no pain, no vomiting Physical Exam Physical Exam: gen - comfortable, no distress, cachectic, but NAD today mouth - MMM neck - no JVD heart - RRR, s1 s2, no murmur lungs - CTA anteriorly, decreased BS bases; no wheeze or rales chest - a-port clean abd - soft NT ND BS+; PEG tube site clean ext - no edema, pulses 2+ b/l skin - erythematous rash over most of face, neck and chest with marked improvement; rash on hands resolved Results & Data Results & Data ([facility]) Vital Signs (Past 12 Hours) Vital Signs Temp Pulse Pulse Resp BP BP Pulse Ox 09/18/22 20:54 98 H 117/76 09/18/22 20:18 36.8 C 98 H 16 117/76 84 L 09/18/22 19:59 64 18 99 09/18/22 19:41 36.4 C L 67 14 138/71 95 09/18/22 16:47 36.3 C L 65 17 169/83 H 98 09/18/22 13:18 84 18 98 09/18/22 11:59 36.3 C L 85 17 153/78 H 98 09/18/22 11:03 87 18 99 O2 Del Method O2 Flow Rate FiO2 09/18/22 20:54 09/18/22 20:18 Nasal Cannula 4 09/18/22 19:59 Nasal Cannula 4 09/18/22 19:41 Nasal Cannula 4 09/18/22 16:47 High Flow Nasal Cannula 09/18/22 13:18 High Flow Nasal Cannula 30 35 09/18/22 11:59 High Flow Nasal Cannula 40 09/18/22 11:03 High Flow Nasal Cannula 35 50 Laboratory Results Laboratory Results - last 24 hr 09/06/22 09/18/22 07:45 11:48 POC Glucose 128 H Biopsy Result PG Care Time/CCT Total # of Minutes Spent Total Time Spent with Patient: Total time spent is greater than 50% in coordination of care (as documented) at patient's floor/unit and/or counseling patient: Coding Level of Care Code 50848 Subseq Hosp Care Lvl 3 Diagnoses Acute respiratory failure with hypoxia J96.01 Bilateral pneumonia J18.9 Myositis M60.9 Dermatomyositis with respiratory involvement M33.91 SUE positive R76.8 Breast cancer C50.912 Breast location: unspecified site of breast Estrogen receptor status: unspecified Laterality: left Patient sex: female Severe protein-calorie malnutrition E43 Leukocytosis D72.829 Hypertension I10 Hypertension type: primary hypertension Vitamin B12 deficiency E53.8 Hyponatremia E87.1 Chronic obstructive pulmonary disease J44.9 Acute metabolic encephalopathy G93.41 Dysphagia R13.10 DVT prophylaxis Z29.9 Hypomagnesemia E83.42 Candidiasis of mouth and esophagus B37.81; B37.0 Volume overload E87.70 (1) Breast cancer Breast location: unspecified site of breast Estrogen receptor status: unspecified Laterality: left Patient sex: female Qualified Code(s): C50.912 - Malignant neoplasm of unspecified site of left female breast (2) Hypertension Hypertension type: primary hypertension Qualified Code(s): I10 - Essential (primary) hypertension
[2022-09-19] MEDS: INSULIN ASPART PER UNIT SC SCH ×5 (00:21→23:51)
[2022-09-19] MEDS: IPRATROPIUM BROMIDE NEB SOLN 0.02% 2.5 ML VIAL INH SCH ×4 (00:34→17:52)
[2022-09-19] MEDS: LEVALBUTEROL 1.25MG/0.5ML NEB INH SCH ×4 (00:35→17:52)
[2022-09-19] MEDS: CEFEPIME 2,000 MG in SYRINGE 0 ML IV SCH ×2 (01:33→14:45)
[2022-09-19] MEDS: HYDROmorphone INJ 0.5 MG/0.5 ML SYR IV PRN ×3 (03:09→19:43)
[2022-09-19] MEDS: TUBE FEEDING WATER FLUSH PEG SCH ×6 (03:23→23:52)
[2022-09-19] MEDS: metroNIDAZOLE 500 MG/100 ML BAG IV SCH ×3 (06:02→21:16)
[2022-09-19 06:39] LABS: BUN Creatinine Ratio 83.1 (10-20); Creatinine Clr Calc Pharmacy 60.3 ml/min; Est GFR (African American) 105.4 ml/min; Est GFR (Non-African American) 90.9 ml/min; Hematocrit (blood only) 25.5 % (34.1-44.9); Hemoglobin 8.4 g/dl (12.0-16.0); Mean Corpuscular Hemoglobin 31.6 pg (25.0-34.0); Mean Corpuscular Hgb Conc 32.9 g/dL (32.0-36.0); Mean Corpuscular Volume 95.9 fL (80.0-100.0); Potassium 3.2 mmol/L (3.5-5.1); RDW Coefficient of Variation 15.4 % (11.5-14.5); RDW Standard Deviation 52.7 fL (36.4-46.3); Red Blood Count 2.66 M/uL (3.93-5.22); White Blood Count 21.12 K/ul (4.8-10.8)
[2022-09-19] MEDS: SODIUM CHLOR 7% 4 ML NEB NEB SCH ×3 (07:01→17:52)
[2022-09-19] MEDS: METOPROLOL TARTRATE 1 MG/ML VIAL IV SCH ×3 (08:12→21:10)
[2022-09-19] MEDS: methylPREDNISolone 40 MG in SYRINGE 0 ML IV SCH (08:12)
[2022-09-19] MEDS: ENOXAPARIN INJ 30 MG/0.3 ML SYR SQ SCH (08:12)
[2022-09-19] MEDS: CYANOCOBALAMIN (B-12) 500 MCG TABLET PEG SCH (08:12)
[2022-09-19] MEDS: NYSTATIN SUSP 500,000 U/5 ML UDC PO SCH ×4 (08:13→19:32)
[2022-09-19] MEDS: LANTUS PER UNIT CHARGE SQ SCH (08:17)
[2022-09-19] MEDS: POTASSIUM CHLORIDE 20 MEQ/15 ML UDC PEG SCH ×2 (08:18→21:11)
[2022-09-19] MEDS: PANTOprazole 40 MG in SYRINGE 0 ML IV SCH ×2 (08:25→22:20)
[2022-09-19] MEDS: POTASSIUM CHLORIDE / WTR 10 MEQ/100 ML PLCT IV SCH ×2 (12:09→12:10)
[2022-09-19] MEDS: [UNRECOGNIZED DRUG - REMARK] SCH (12:09)
--- NOTE | 2022-09-19 13:37 | Hospitalist Progress Note ---
Date of Service September 19, 2022 Assessment & Plan (1) Acute respiratory failure with hypoxia: Plan: 2nd to b/l lower lobe pneumonia, mucoid impaction of bronchi especially on right, RML collapse, some element of volume overload/pulmonary edema, and emphysema. Acute worsening on 09/13 AM. STAT CTA Chest 09/13 at that time without PEs. However - progressive mucoid impaction with RML collapse seen. Since 09/13 she has had intermittent episodes of hypoxia and acute worsening likely aspiration events, mucoid impaction, shunting, etc. Some of the aspiration may be due to the tube feedings themselves. OVERNIGHT - tolerated tube feedings and had NO respiratory distress. NO episodes of hypoxia. She previously completed a 10-day course of IV zosyn; now back on Cefepime/flagyl due to recent new infiltrates on cxr. Day #3 of cefepime/flagyl. Previously completed 5+ days of high-dose solumedrol 125mg BID; was placed on 50mg prednisone/day for dermatomyositis; then prednisone changed back to methylprednisolone 40mg daily. Prognosis has been quite guarded due to the recurrent respiratory issues, aspiration, respiratory weakness from deconditioning & dermatomyositis, etc. HOWEVER - cautiously optimistic that the last 24-36 hours have been more stable. I spoke with Dr Jackson from rheum this am -- he will see Ms Benson in f/u today. The recovery from her respiratory and oropharyngeal involvement from the dermatomyositis may take several more weeks or more. (2) Bilateral pneumonia: Plan: b/l lower lobe. 2nd aspiration. see #1 above. (3) Myositis: Plan: During her 06/2022 to 07/2022 prolonged hospitalization she underwent an extensive work-up looking for her b/l LE weakness and back pain. Most of her weakness was of the hip girdle muscles. She underwent MRIs of the spine along with extensive blood work. She was on empiric steroids (Dexamethasone) at that time. CPK was mildly elevated but aldolase was wnl. CRP was 0. She was evaluated by [facility] during the prior hospitalization. Her LE weakness gradually improved during that hospital stay and she was walking nearly 100 feet by time of discharge. Studies for myasthenia gravis, autoimmune disease (SUE, etc), and other neurological conditions were dispatched. She had f/u with [facility] shortly after discharge. EMGs of all 4 limbs were being planned. Her weakness progressed over July into August; she ultimately was recently readmitted on 09/02/22. Prior attending, Dr Nur, dispatched additional blood tests for myositis earlier this stay (myositis-specific auto ab's). MRIs of b/l thighs showed significant inflammation of the thigh muscles. She underwent a right thigh muscle bx on 09/06/22 by general surgery; results still pending. 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 This is highly associated with dermatomyositis and underlying malignancy. Thus, her proximal muscle weakness of the legs may be due to anti TIF-1 gamma antibody-positive DM. Rash of face/neck/chest/hands is likely dermatomyositis related. Dysphagia can be a symptom of dermatomyositis as well due to weakness of muscles of swallowing. Recent positive SUE fits with her clinical picture. In light of progressive dysphagia and worsening prox muscle weakness - and overall clinical status continuing to worsen -initiated high-dose steroids -- * Solumedrol 125mg IV BID PM of 09/10/22. Completed -6 days of such. * Was briefly on prednisone; now back to once daily solumedrol. * Completed IVIG x 5 days. Will have such again in 4 weeks. Increased PPI to twice daily dosing for GI prophy while on high-dose steroids. If malignancy-related dermatomyositis is indeed present is there still underlying active breast ca? CT chest/abd/pelvis does not show obvious recurrence or metastatic disease although there is thickening of the left chest wall in vicinity of prior mastectomy. Recent bone scan was negative for skeletal mets. Need for MRI brain? CT head recently neg for obvious mets. Prognosis guarded given the severity of her dermatomyositis and progressive respiratory issues. The above care plan has been reviewed with [facility], Dr Jackson, who consulted formally - appreciate his consult & recs. He will see Ms Benson again in f/u today. (4) Dermatomyositis with respiratory involvement: Plan: see #3 above cause of progressive prox muscle weakness, dysphagia, rash, etc. rheum consult by Dr Jackson appreciated rash component has improved/resolved (5) SUE positive: Plan: see #3 above (6) Breast cancer: Plan: left sided stage 3 at diagnosis s/p chemo/XRT last spring/summer, followed by mastectomy 06/[address]arias extensive CT imaging and bone scan without obvious recurrence/mets although most recent CT chest with "thickening" of left chest wall noted see discussion above (7) Severe protein-calorie malnutrition: Plan: ongoing, present since spring 2021 in the setting of newly diagnosed breast ca and neoadjuvant chemo/radiation during that time period. s/p PEG tube placement 01/2022. previously on enteral nutrition via PEG (Peptamen 1.5). she DID tolerate tube feedings overnight without hypoxia or aspiration spoke with nutrition -- recommend we run tube feedings DURING THE DAY to help satiate her hunger; further, her hypoxia and aspiration events tend to be at night-time leading to CPAP use thus - will run tube feedings during the daytime from 0600 to 2100 cont 30cc/hr of Peptamen 1.5 during these hours increase by 10cc/hr daily to goal of 60cc/hr H20 flushes q4h and with meds (8) Leukocytosis: Plan: severe at time of admission (40+) - resolved part of the leukocytosis may have been steroid-related; part of the elevated wbc due to severe pneumonia (9) Hypertension: Plan: cont metoprolol IV (10) Vitamin B12 deficiency: Plan: dx earlier this fall - level now improved / normal (11) Hyponatremia: Plan: suspected SIADH baseline Na level about 130 Na levels remain acceptable (12) Chronic obstructive pulmonary disease: Plan: suspected emphysematous changes on imaging long standing tobacco history cont bronchodilators cont steroids cont NaCl nebs BID cont pulm toilet (cough assist, etc) cough IS improved overall respiratory status IS improved (13) Acute metabolic encephalopathy: Plan: resolved back to baseline likely combination of meds (ativan , etc), acute illness (pneumonia, etc) earlier this stay has been a/o x3 for numerous days (14) Dysphagia: Plan: 2nd to oropharyngeal involvement from dermatomyositis see above re: steroids, IVIG, etc strict NPO except ice chips speech re-eval -- perhaps in about 1 week?? NPO until that time (15) DVT prophylaxis: Plan: lovenox 30mg daily (16) Hypomagnesemia: Plan: replaced resolved check level in am for stability (17) Candidiasis of mouth and esophagus: Plan: nystatin 5cc qid - improved (18) Volume overload: Plan: suspected lasix 20mg IV x 1 09/13 lasix 40mg IV x 1 09/14 lasix 20mg IV x 1 09/15 volume status looks euvolemic today Plan updated pt's daughter at bedside today extensively once again appreciate palliative care consultation to address goals of care prognosis is guarded but she had a good 24 hours and perhaps the high-dose steroids/IVIG are helping to turn the corner PT, OT when able Admission and Anticipated Discharge Date Admission Date: September 02, 2022 Subjective patient had "good night" did NOT require CPAP or HFNC slept decently her breathing is very good today cough is improved voice is stronger today than previous days she is cautiously optimistic that we are headed in right direction no vomiting of note - tolerated 30cc/hr of tube feedings from 1999 last pm to this AM no residuals no change in respiratory status while on tube feedings daughter at bedside she, too, is optimistic tele overnight wnl Review of Systems Review of Systems: gen - no fever; weak/tired but did sleep well overnight and feels more rested today cv - no chest pain or tightness pulm - no dyspnea at rest; cough improved GI - no abd pain, nausea or emesis; NO DIARRHEA musculo - no myalgias; mild lumbar back pain neuro - strength in shoulders - slightly improved? Physical Exam Physical Exam: gen - comfortable, no distress, cachectic, but NAD today; looks better overall today mouth - MMM; thrush resolved voice - stronger, more clear, not as garbly/marbly/dysarthric neck - no JVD heart - RRR, s1 s2, no murmur lungs - CTA anteriorly, decreased BS bases; no wheeze or rales or distress today chest - a-port clean abd - soft NT ND BS+; PEG tube site clean ext - no edema, pulses 2+ b/l skin - erythematous rash over most of face, neck, chest, and dorsum hands - resolved psych - a/o x 3; affect more full today Results & Data Results & Data ([facility]) Vital Signs (Past 12 Hours) Vital Signs Temp Pulse Pulse Resp BP Pulse Ox O2 Del Method 09/19/22 13:23 72 18 99 Nasal Cannula 09/19/22 11:34 36.3 C L 76 18 151/57 H 98 Nasal Cannula 09/19/22 07:43 36.6 C 83 18 146/74 H 100 Nasal Cannula 09/19/22 07:30 Nasal Cannula 09/19/22 07:02 78 18 99 Nasal Cannula 09/19/22 04:00 73 09/19/22 03:14 36.4 C L 72 16 152/74 H 99 Nasal Cannula O2 Flow Rate 09/19/22 13:23 3 09/19/22 11:34 3 09/19/22 07:43 3 09/19/22 07:30 3 09/19/22 07:02 3 09/19/22 04:00 09/19/22 03:14 3 Laboratory Results Laboratory Results - last 24 hr 09/19/22 09/19/22 09/19/22 05:53 05:53 05:53 WBC 21.12 H RBC 2.66 L Hgb 8.4 L Hct 25.5 L MCV 95.9 MCH 31.6 MCHC 32.9 RDW Std Deviation 52.7 H RDW Coeff of Emil 15.4 H Plt Count MPV Plt Count ,Citrate 283 Sodium 137 Potassium 3.2 L Chloride 98 Carbon Dioxide 33 H Anion Gap 6 BUN 49 H Creatinine 0.59 L Est Cr Clr Drug Dosing 60.3 Est GFR ( Amer) 105.4 Est GFR (Non-Af Amer) 90.9 BUN/Creatinine Ratio 83.1 H Glucose 163 H Calcium 9.0 PG Care Time/CCT Total # of Minutes Spent Total Time Spent with Patient: Total time spent is greater than 50% in coordination of care (as documented) at patient's floor/unit and/or counseling patient: Coding Level of Care Code 14844 Subseq Hosp Care Lvl 3 Diagnoses Acute respiratory failure with hypoxia J96.01 Bilateral pneumonia J18.9 Myositis M60.9 Dermatomyositis with respiratory involvement M33.91 SUE positive R76.8 Breast cancer C50.912 Breast location: unspecified site of breast Estrogen receptor status: unspecified Laterality: left Patient sex: female Severe protein-calorie malnutrition E43 Leukocytosis D72.829 Hypertension I10 Hypertension type: primary hypertension Vitamin B12 deficiency E53.8 Hyponatremia E87.1 Chronic obstructive pulmonary disease J44.9 Acute metabolic encephalopathy G93.41 Dysphagia R13.10 DVT prophylaxis Z29.9 Hypomagnesemia E83.42 Candidiasis of mouth and esophagus B37.81; B37.0 Volume overload E87.70 (1) Breast cancer Breast location: unspecified site of breast Estrogen receptor status: unspecified Laterality: left Patient sex: female Qualified Code(s): C50.912 - Malignant neoplasm of unspecified site of left female breast (2) Hypertension Hypertension type: primary hypertension Qualified Code(s): I10 - Essential (primary) hypertension
--- NOTE | 2022-09-19 16:35 | Rheumatology Progress Note ---
Date of Service September 19, 2022 Assessment & Plan (1) Dermatomyositis: Plan: - Biopsy pending, but clinical picture supportive of dermatomyositis (skin changes, MRI features of myositis, TIF 1 gamma positive, concomitant breast CA -Status post 3 days of Solu-Medrol and now transition to oral prednisone -Status post IVIG and we will continue at 2 g every 4 weeks -Patient will need ongoing rehabilitation. I am concerned about extent and duration of her muscle involvement. This will likely require months of rehab. There is concern about dysphagia and aspiration risks. May take weeks to see resolution or improvement -Patient reports agreement with the need for rehab and has been discussing this with her daughter -Continue with PT in-house -Nutritional support per hospitalist team. I will defer to them regarding timing of speech therapy to determine whether or not improvement with dysphagia has been gained but this will need to be monitored moving forward. Please contact me with questions or concerns. Admission and Anticipated Discharge Date Admission Date: September 02, 2022 Subjective Return to see patient today. Recently had difficulty with respiratory distress and was transferred to new unit. She is feeling better today. She reports physical therapy will be working with her. She is open to transfer to rehab ty facility if necessary. She denies chest pain. She tells me breathing is better. Denies nausea or vomiting. Physical Exam Physical Exam: General: Alert and oriented. No acute distress Cardiovascular: Heart regular rate and rhythm, S1 and S2 noted Pulmonary: Clear to auscultation bilaterally Skin: Discoloration over MCPs and proximal phalanges improved Musculoskeletal: No synovitis. No effusions Results & Data ([facility]) Vital Signs (Past 12 Hours) Vital Signs Temp Pulse Resp BP Pulse Ox O2 Del Method O2 Flow Rate 09/19/22 13:23 72 18 99 Nasal Cannula 3 09/19/22 11:34 36.3 C L 76 18 151/57 H 98 Nasal Cannula 3 09/19/22 07:43 36.6 C 83 18 146/74 H 100 Nasal Cannula 3 09/19/22 07:30 Nasal Cannula 3 09/19/22 07:02 78 18 99 Nasal Cannula 3 PG Care Time/CCT Total # of Minutes Spent Total Time Spent with Patient: Total time spent is greater than 50% in coordination of care (as documented) at patient's floor/unit and/or counseling patient: Coding Level of Care Code 47220 Subseq Hosp Care Lvl 2 Diagnoses Dermatomyositis M33.90
[2022-09-19 18:37] LABS: Cytosolic 5 Nucleotidas E 1A <5 Units; EJ Ab <11 SI (<11); HMGCR Ab <2 CU (<20); JO-1 Antibody <11 SI (<11); MDA5 Ab <11 SI (<11); MI-2 Alpha Ab <11 SI (<11); MI-2 Beta Ab <11 SI (<11); NXP-2 Ab (MJ Ab) <11 SI (<11); OJ Ab <11 SI (<11); PL-12 Ab <11 SI (<11); PL-7 Ab <11 SI (<11); SRP Ab <11 SI (<11); TIF1 Gamma Ab >100 SI (<11)
[2022-09-20] MEDS: IPRATROPIUM BROMIDE NEB SOLN 0.02% 2.5 ML VIAL INH SCH ×4 (00:36→21:00)
[2022-09-20] MEDS: LEVALBUTEROL 1.25MG/0.5ML NEB INH SCH ×4 (00:36→21:00)
[2022-09-20] MEDS: CEFEPIME 2,000 MG in SYRINGE 0 ML IV SCH ×2 (01:31→13:49)
[2022-09-20] MEDS: ACETAMINOPHEN 10MG/ML Custom 650 MG in EMPTY BAG 0 ML IV PRN (02:17)
[2022-09-20] MEDS: TUBE FEEDING WATER FLUSH PEG SCH ×6 (03:10→23:29)
[2022-09-20] MEDS: HYDROmorphone INJ 0.5 MG/0.5 ML SYR IV PRN ×4 (04:07→21:15)
[2022-09-20] MEDS: metroNIDAZOLE 500 MG/100 ML BAG IV SCH ×3 (04:08→21:20)
[2022-09-20] MEDS: INSULIN ASPART PER UNIT SC SCH ×4 (05:11→23:29)
[2022-09-20] MEDS: PEPTAMEN 1.5 CAL 1,000 ML BAG PEG SCH (06:03)
[2022-09-20] MEDS: SODIUM CHLOR 7% 4 ML NEB NEB SCH ×2 (06:58→21:00)
[2022-09-20 07:15] LABS: BUN Creatinine Ratio 84.9 (10-20); Calcium 8.9 mg/dl (8.5-10.1); Creatinine Clr Calc Pharmacy 47.8 ml/min; Est GFR (African American) 109.2 ml/min; Est GFR (Non-African American) 94.2 ml/min; Magnesium 1.7 mg/dl (1.7-2.4); Phosphorus 2.9 mg/dl (2.5-4.9); Potassium 4.9 mmol/L (3.5-5.1)
[2022-09-20 07:16] LABS: Hematocrit (blood only) 25.8 % (34.1-44.9); Hemoglobin 8.2 g/dl (12.0-16.0); Mean Corpuscular Hemoglobin 31.1 pg (25.0-34.0); Mean Corpuscular Hgb Conc 31.8 g/dL (32.0-36.0); Mean Corpuscular Volume 97.7 fL (80.0-100.0); Mean Platelet Volume 10.5 fL (9.4-12.3); Platelet Count 251 K/uL (130-400); Platelet Estimate Normal (Normal); RDW Coefficient of Variation 15.5 % (11.5-14.5); RDW Standard Deviation 55.2 fL (36.4-46.3); Red Blood Count 2.64 M/uL (3.93-5.22); White Blood Count 11.56 K/ul (4.8-10.8)
[2022-09-20] MEDS: POTASSIUM CHLORIDE 20 MEQ/15 ML UDC PEG SCH (08:19)
[2022-09-20] MEDS: CYANOCOBALAMIN (B-12) 500 MCG TABLET PEG SCH (08:19)
[2022-09-20] MEDS: METOPROLOL TARTRATE 1 MG/ML VIAL IV SCH ×3 (08:19→21:15)
[2022-09-20] MEDS: LANTUS PER UNIT CHARGE SQ SCH (08:20)
[2022-09-20] MEDS: NYSTATIN SUSP 500,000 U/5 ML UDC PO SCH ×4 (08:20→20:46)
[2022-09-20] MEDS: ENOXAPARIN INJ 30 MG/0.3 ML SYR SQ SCH (08:20)
[2022-09-20] MEDS: methylPREDNISolone 40 MG in SYRINGE 0 ML IV SCH (08:21)
[2022-09-20] MEDS: PANTOprazole 40 MG in SYRINGE 0 ML IV SCH ×2 (08:22→21:15)
--- NOTE | 2022-09-20 10:58 | Palliative Care Progress Note ---
Date of Service September 20, 2022 Assessment & Plan (1) Dysphagia: Plan: Has been on PEG tube feedings. Tolerating continuous low rate during waking hours. She has severe protein calorie malnutrition with albumin of 2.7 and nearly 20lb weight loss since June. (2) Weakness: Plan: With metastatic breast cancer and myositis. Her goal is to try therapy to improve her strength. (3) Palliative care encounter: Plan: Mrs. Benson has consistently expressed the desire to continue available treatment for her cancer and myositis to extend her life as long as possible. She has certainly had an improvement in the last two days. Unfortunately her poor functional and nutritional status remain concerning. Her daughter, Gilda pulled me aside and asked about whether overall prognosis has changed. We discussed concern that her underlying diagnoses are unchanged and her rehab potential is likely limited. She is focused on enjoying time with her mother in the present but understands that her prognosis remains poor. Admission and Anticipated Discharge Date Admission Date: September 02, 2022 Subjective Reports feeling better. Denies pain or dyspnea at this time. Per patient and RN, she is tolerating tube feeds at continuous low rate. Having some loose stool and incontinence which is troubling for her. Review of Systems Review of Systems: ESAS Pain 0/3 Dyspnea 0/3 Anxiety 0/3 Fatigue 3/3 Drowsiness 0/3 PPS 30% Physical Exam Constitutional: + cachectic Respiratory: normal respiratory effort and + cough (moist); no labored breathing Cardiovascular: Rate/Rhythm: regular rate and regular rhythm Musculoskeletal: Extremities: + muscle atrophy Neurologic: Speech / Cognition: normal cognition Results & Data ([facility]) Vital Signs (Past 12 Hours) Vital Signs Temp Pulse Pulse Resp BP Pulse Ox O2 Del Method 09/20/22 07:55 Room Air 09/20/22 06:58 78 18 99 Nasal Cannula 09/20/22 03:35 97.7 F 65 18 159/75 H 99 Nasal Cannula 09/20/22 03:07 62 09/20/22 00:00 98.6 F 61 16 148/72 H 99 Nasal Cannula 09/20/22 00:36 Nasal Cannula O2 Flow Rate 09/20/22 07:55 09/20/22 06:58 3 09/20/22 03:35 3 09/20/22 03:07 09/20/22 00:00 3 09/20/22 00:36 PG Care Time/CCT Total # of Minutes Spent Total Time Spent: 31 Total Time Spent with Patient: Total time spent is greater than 50% in coordination of care (as documented) at patient's floor/unit and/or counseling patient: [id number] Symptom management, goals of care, prognosis, patient and family support Coding Level of Care Code 99794 Subseq Hosp Care Lvl 2 Diagnoses Dysphagia R13.10 Weakness R53.1 Palliative care encounter Z51.5
[2022-09-20] MEDS ORDERED: LOPERAMIDE HCL 2 MG CAP PO PRN (12:37)
--- NOTE | 2022-09-20 19:11 | Hospitalist Progress Note ---
Date of Service September 20, 2022 Assessment & Plan (1) Acute respiratory failure with hypoxia: Plan: 2nd to b/l lower lobe pneumonia, mucoid impaction of bronchi especially on right, RML collapse, some element of volume overload/pulmonary edema, and emphysema. Acute worsening on 09/13 AM. STAT CTA Chest 09/13 at that time without PEs. However - progressive mucoid impaction with RML collapse seen. Since 09/13 she has had intermittent episodes of hypoxia and acute worsening likely aspiration events, mucoid impaction, shunting, etc. Some of the aspiration may be due to the tube feedings themselves. OVERNIGHT - tolerated tube feedings and had NO respiratory distress. NO episodes of hypoxia. She previously completed a 10-day course of IV zosyn; now back on Cefepime/flagyl due to recent new infiltrates on cxr. Day #4 of cefepime/flagyl. Previously completed 5+ days of high-dose solumedrol 125mg BID; was placed on 50mg prednisone/day for dermatomyositis; then prednisone changed back to methylprednisolone 40mg daily. Prognosis has been quite guarded due to the recurrent respiratory issues, aspiration, respiratory weakness from deconditioning & dermatomyositis, etc. HOWEVER - cautiously optimistic that she has been more stable the last few days Rheumatology following for dermatomyositis which is likely cause of dysphagia The recovery from her respiratory and oropharyngeal involvement from the dermatomyositis may take several more weeks or more. (2) Bilateral pneumonia: Plan: b/l lower lobe. 2nd aspiration. see #1 above. (3) Myositis: Plan: During her 06/2022 to 07/2022 prolonged hospitalization she underwent an extensive work-up looking for her b/l LE weakness and back pain. Most of her weakness was of the hip girdle muscles. She underwent MRIs of the spine along with extensive blood work. She was on empiric steroids (Dexamethasone) at that time. CPK was mildly elevated but aldolase was wnl. CRP was 0. She was evaluated by [facility] during the prior hospitalization. Her LE weakness gradually improved during that hospital stay and she was walking nearly 100 feet by time of discharge. Studies for myasthenia gravis, autoimmune disease (SUE, etc), and other neurological conditions were dispatched. She had f/u with [facility] shortly after discharge. EMGs of all 4 limbs were being planned. Her weakness progressed over July into August; she ultimately was recently readmitted on 09/02/22. Prior attending, Dr Nur, dispatched additional blood tests for myositis earlier this stay (myositis-specific auto ab's). MRIs of b/l thighs showed significant inflammation of the thigh muscles. She underwent a right thigh muscle bx on 09/06/22 by general surgery; results still pending. 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 This is highly associated with dermatomyositis and underlying malignancy. Thus, her proximal muscle weakness of the legs may be due to anti TIF-1 gamma antibody-positive DM. Rash of face/neck/chest/hands is likely dermatomyositis related. Dysphagia can be a symptom of dermatomyositis as well due to weakness of muscles of swallowing. Recent positive SUE fits with her clinical picture. In light of progressive dysphagia and worsening prox muscle weakness - and ove rall clinical status continuing to worsen -initiated high-dose steroids -- * Solumedrol 125mg IV BID PM of 09/10/22. Completed -6 days of such. * Was briefly on prednisone; now back to once daily solumedrol. * Completed IVIG x 5 days on 09/12. Will have such again in 4 weeks around 10/10/2022. Increased PPI to twice daily dosing for GI prophy while on high-dose steroids. If malignancy-related dermatomyositis is indeed present is there still underlying active breast ca? CT chest/abd/pelvis does not show obvious recurrence or metastatic disease although there is thickening of the left chest wall in vicinity of prior mastectomy. Recent bone scan was negative for skeletal mets. Need for MRI brain? CT head recently neg for obvious mets. She has not been able to start her immunotherapy for breast cancer given her very poor functional status and multiple hospitalizations Prognosis guarded given the severity of her dermatomyositis and progressive respiratory issues. The above care plan has been reviewed with [facility], Dr Jackson, who consulted formally - appreciate his consult & recs. Follow-up with rheumatology as an outpatient (4) Dermatomyositis with respiratory involvement: Plan: See above Cause of progressive prox muscle weakness, dysphagia, rash, etc. 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 (6) Breast cancer: Plan: left sided stage 3 at diagnosis s/p chemo/XRT last spring/summer, followed by mastectomy 06/[address]arias extensive CT imaging and bone scan without obvious recurrence/mets although most recent CT chest with "thickening" of left chest wall noted Has not been able to start immunotherapy as recommended by oncology Likely will not build to start any treatment for this until her nutritional and performance status are much improved Follow-up with oncology as an outpatient (7) Severe protein-calorie malnutrition: Plan: ongoing, present since spring 2021 in the setting of newly diagnosed breast ca and neoadjuvant chemo/radiation during that time period. s/p PEG tube placement 01/2022. previously on enteral nutrition via PEG (Peptamen 1.5). she DID tolerate tube feedings without hypoxia or aspiration the last few nights spoke with nutrition -- recommend we run tube feedings DURING THE DAY to help satiate her hunger; further, her hypoxia and aspiration events tend to be at night-time leading to CPAP use thus - will run tube feedings during the daytime from 0600 to 2100 Receiving Peptamen 1.5 during these hours increase by 10cc/hr daily to goal of 60cc/hr-up to 30 mL/h today H20 flushes q4h and with meds Follow CBC, BMP, magnesium, phosphorus (8) Leukocytosis: Plan: severe at time of admission (40+) - resolved part of the leukocytosis may have been steroid-related; part of the elevated wbc due to severe pneumonia Now resolved (9) Hypertension: Plan: cont metoprolol IV 3 times daily (10) Vitamin B12 deficiency: Plan: dx earlier this fall - level now improved / normal (11) Hyponatremia: Plan: suspected SIADH baseline Na level about 130 Na levels remain acceptable and are now up to 134 (12) Chronic obstructive pulmonary disease: Plan: suspected emphysematous changes on imaging long standing tobacco history cont bronchodilators cont steroids cont NaCl nebs BID cont pulm toilet (cough assist, etc) Cough and overall respiratory status improved, weaned to 3 L nasal cannula now since most recent aspiration event (13) Acute metabolic encephalopathy: Plan: resolved back to baseline likely combination of meds (ativan , etc), acute illness (pneumonia, etc) earlier this stay (14) Dysphagia: Plan: 2nd to oropharyngeal involvement from dermatomyositis see above re: steroids, IVIG, etc strict NPO except ice chips speech re-eval -- perhaps in about 1 week?? NPO until that time (15) DVT prophylaxis: Plan: lovenox 30mg daily (16) Candidiasis of mouth and esophagus: Plan: nystatin 5cc qid - improved (17) Volume overload: Plan: suspected lasix 20mg IV x 1 09/13 lasix 40mg IV x 1 09/14 lasix 20mg IV x 1 09/15 volume status looks euvolemic today Plan updated pt's daughter at bedside today extensively appreciate palliative care consultation to address goals of care prognosis is guarded The patient says she is "not ready to give up yet" and is hoping that with the high-dose steroids/IVIG, that she will be able to improve in order to complete her treatment for breast cancer Continue PT/OT Admission and Anticipated Discharge Date Admission Date: September 02, 2022 Subjective Patient reports pain in her arms and legs is better but still feels very weak. Is weaned to 3 L nasal cannula. Has some cough and is bringing up some sputum. Tube feeds remain at 30 mL/h Telemetry with normal sinus rhythm and normal rates. Discussed her care to date and prognosis and plan moving forward with patient and her daughter at the bedside extensively today. The patient had 1 loose bowel movement with incontinence earlier today but none since. Review of Systems Review of Systems: All systems reviewed & are unremarkable except as noted in HPI & below Physical Exam Physical Exam: gen - comfortable, no distress, cachectic, but NAD heart - RRR, s1 s2, no murmur lungs - CTA anteriorly, decreased BS bases; no wheeze or rales or distress chest - a-port clean abd - soft NT ND BS+; scaphoid abdomen, PEG tube site clean ext - no edema skin - erythematous rash over most of face, neck, chest, and dorsum hands-mild psych - a/o x 3 Results & Data Results & Data ([facility]) Vital Signs (Past 12 Hours) Vital Signs Pulse Ox O2 Del Method O2 Flow Rate 09/20/22 12:46 99 Nasal Cannula 3 09/20/22 07:55 Room Air Laboratory Results 09/20/22 09/20/22 Range/Units 06:19 06:13 WBC 11.56 H (4.8-10.8) K/ul RBC 2.64 L (3.93-5.22) M/uL Hgb 8.2 L (12.0-16.0) g/dl Hct 25.8 L (34.1-44.9) % MCV 97.7 (80.0-100.0) fL MCH 31.1 (25.0-34.0) pg MCHC 31.8 L (32.0-36.0) g/dL RDW Std Deviation 55.2 H (36.4-46.3) fL RDW Coeff of Emil 15.5 H (11.5-14.5) % Plt Count 251 (130-400) K/uL MPV 10.5 (9.4-12.3) fL Platelet Estimate Normal (Normal) Sodium 134 L (136-145) mmol/L Potassium 4.9 D (3.5-5.1) mmol/L Chloride 100 (98-107) mmol/L Carbon Dioxide 32 (21-32) mmol/L Anion Gap 2 L (3-11) BUN 45 H (6-23) mg/dl Creatinine 0.53 L (0.6-1.2) mg/dl Est Cr Clr Drug Dosing 47.8 ml/min Est GFR ( Amer) 109.2 ml/min Est GFR (Non-Af Amer) 94.2 ml/min BUN/Creatinine Ratio 84.9 H (10-20) Glucose 88 (70-99(Fasting)) mg/dl Calcium 8.9 (8.5-10.1) mg/dl Phosphorus 2.9 (2.5-4.9) mg/dl Magnesium 1.7 (1.7-2.4) mg/dl PG Care Time/CCT Total # of Minutes Spent Total Time Spent with Patient: Total time spent is greater than 50% in coordination of care (as documented) at patient's floor/unit and/or counseling patient: Coding Level of Care Code 47566 Subseq Hosp Care Lvl 3 Diagnoses Acute respiratory failure with hypoxia J96.01 Bilateral pneumonia J18.9 Myositis M60.9 Dermatomyositis with respiratory involvement M33.91 SUE positive R76.8 Breast cancer C50.912 Breast location: unspecified site of breast Estrogen receptor status: unspecified Laterality: left Patient sex: female Severe protein-calorie malnutrition E43 Leukocytosis D72.829 Hypertension I10 Hypertension type: primary hypertension Vitamin B12 deficiency E53.8 Hyponatremia E87.1 Chronic obstructive pulmonary disease J44.9 Acute metabolic encephalopathy G93.41 Dysphagia R13.10 DVT prophylaxis Z29.9 Candidiasis of mouth and esophagus B37.81; B37.0 Volume overload E87.70 (1) Breast cancer Breast location: unspecified site of breast Estrogen receptor status: unspecified Laterality: left Patient sex: female Qualified Code(s): C50.912 - Malignant neoplasm of unspecified site of left female breast (2) Hypertension Hypertension type: primary hypertension Qualified Code(s): I10 - Essential (primary) hypertension
[2022-09-20] MEDS ORDERED: [UNRECOGNIZED DRUG - REMARK] ONE (21:00)
[2022-09-21] MEDS: LEVALBUTEROL 1.25MG/0.5ML NEB INH SCH ×4 (00:26→19:06)
[2022-09-21] MEDS: IPRATROPIUM BROMIDE NEB SOLN 0.02% 2.5 ML VIAL INH SCH ×4 (00:26→19:06)
[2022-09-21] MEDS: HYDROmorphone INJ 0.5 MG/0.5 ML SYR IV PRN ×4 (01:17→20:03)
[2022-09-21] MEDS: CEFEPIME 2,000 MG in SYRINGE 0 ML IV SCH ×2 (01:17→13:37)
[2022-09-21] MEDS: TUBE FEEDING WATER FLUSH PEG SCH ×6 (03:20→23:42)
[2022-09-21] MEDS: metroNIDAZOLE 500 MG/100 ML BAG IV SCH ×3 (05:09→20:55)
[2022-09-21] MEDS: INSULIN ASPART PER UNIT SC SCH ×4 (05:34→23:41)
[2022-09-21] MEDS: PEPTAMEN 1.5 CAL 1,000 ML BAG PEG SCH (06:00)
[2022-09-21] MEDS: SODIUM CHLOR 7% 4 ML NEB NEB SCH ×2 (07:00→19:07)
[2022-09-21 08:32] LABS: BUN Creatinine Ratio 78.2 (10-20); Calcium 8.9 mg/dl (8.5-10.1); Creatinine Clr Calc Pharmacy 48.2 ml/min; Est GFR (African American) 107.8 ml/min; Est GFR (Non-African American) 93.1 ml/min; Magnesium 1.5 mg/dl (1.7-2.4); Phosphorus 2.5 mg/dl (2.5-4.9); Potassium 4.2 mmol/L (3.5-5.1)
[2022-09-21] MEDS: methylPREDNISolone 40 MG in SYRINGE 0 ML IV SCH (09:04)
[2022-09-21] MEDS: PANTOprazole 40 MG in SYRINGE 0 ML IV SCH ×2 (09:04→20:22)
[2022-09-21] MEDS: METOPROLOL TARTRATE 1 MG/ML VIAL IV SCH ×3 (09:04→20:26)
[2022-09-21] MEDS: CYANOCOBALAMIN (B-12) 500 MCG TABLET PEG SCH (09:05)
[2022-09-21] MEDS: ENOXAPARIN INJ 30 MG/0.3 ML SYR SQ SCH (09:05)
[2022-09-21] MEDS: NYSTATIN SUSP 500,000 U/5 ML UDC PO SCH ×4 (09:06→20:56)
[2022-09-21] MEDS: LANTUS PER UNIT CHARGE SQ SCH (09:07)
[2022-09-21] MEDS: MAGNESIUM SULFATE / D5W 1 GM/100 ML BAG IV SCH ×2 (11:49→13:19)
[2022-09-21] MEDS: ACETAMINOPHEN 10MG/ML Custom 650 MG in EMPTY BAG 0 ML IV PRN (13:41)
--- NOTE | 2022-09-21 17:43 | Hospitalist Progress Note ---
Date of Service September 21, 2022 Assessment & Plan (1) Acute respiratory failure with hypoxia: Plan: 2nd to b/l lower lobe pneumonia, mucoid impaction of bronchi especially on right, RML collapse, some element of volume overload/pulmonary edema, and emphysema. Acute worsening on 09/13 AM. STAT CTA Chest 09/13 at that time without PEs. However - progressive mucoid impaction with RML collapse seen. She continued to have intermittent episodes of hypoxia and acute worsening likely aspiration events, mucoid impaction, shunting, etc. Some of the aspiration may be due to the tube feedings themselves. Now much improved, remains on 3 LNC Is tolerating slow increase in tube feeds again She previously completed a 10-day course of IV zosyn; now back on Cefepime/flagyl due to recent new infiltrates on cxr. Continue through 09/23/2022 Previously completed 5+ days of high-dose solumedrol 125mg BID; was placed on 50mg prednisone/day for dermatomyositis; then prednisone changed back to methylprednisolone 40mg daily. Prognosis has been quite guarded due to the recurrent respiratory issues, aspiration, respiratory weakness from deconditioning & dermatomyositis, etc. HOWEVER - cautiously optimistic that she has been more stable the last few days Rheumatology following for dermatomyositis which is likely cause of dysphagia The recovery from her respiratory and oropharyngeal involvement from the dermatomyositis may take several more weeks or more. (2) Bilateral pneumonia: Plan: b/l lower lobe. 2nd aspiration. (3) Myositis: Plan: During her 06/2022 to 07/2022 prolonged hospitalization she underwent an extensive work-up looking for her b/l LE weakness and back pain. Most of her weakness was of the hip girdle muscles. She underwent MRIs of the spine along with extensive blood work. She was on empiric steroids (Dexamethasone) at that time. CPK was mildly elevated but aldolase was wnl. CRP was 0. She was evaluated by [facility] during the prior hospitalization. Her LE weakness gradually improved during that hospital stay and she was walking nearly 100 feet by time of discharge. Studies for myasthenia gravis, autoimmune disease (SUE, etc), and other neurological conditions were dispatched. She had f/u with [facility] shortly after discharge. EMGs of all 4 limbs were being planned. Her weakness progressed over July into August; she ultimately was recently readmitted on 09/02/22. Prior attending, Dr Nur, dispatched additional blood tests for myositis earlier this stay (myositis-specific auto ab's). MRIs of b/l thighs showed significant inflammation of the thigh muscles. She underwent a right thigh muscle bx on 09/06/22 by general surgery; results still pending. 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 This is highly associated with dermatomyositis and underlying malignancy. Thus, her proximal muscle weakness of the legs may be due to anti TIF-1 gamma antibody-positive DM. Rash of face/neck/chest/hands is likely dermatomyositis related. Dysphagia can be a symptom of dermatomyositis as well due to weakness of muscles of swallowing. Recent positive SUE fits with her clinical picture. In light of progressive dysphagia and worsening prox muscle weakness - and overall clinical status continuing to worsen -initiated high-dose steroids -- * Solumedrol 125mg IV BID PM of 09/10/22. Completed -6 days of such. * Was briefly on prednisone; now back to once daily solumedrol. * Completed IVIG x 5 days on 09/12. Will need next round of IVIG again in 4 weeks around 10/10/2022. Increased PPI to twice daily dosing for GI prophy while on high-dose steroids. If malignancy-related dermatomyositis is indeed present is there still underlying active breast ca? CT chest/abd/pelvis does not show obvious recurrence or metastatic disease although there is thickening of the left chest wall in vicinity of prior mastectomy. Recent bone scan was negative for skeletal mets. Need for MRI brain? CT head recently neg for obvious mets. She has not been able to start her immunotherapy for breast cancer given her very poor functional status and multiple hospitalizations Prognosis guarded given the severity of her dermatomyositis and progressive respiratory issues. The above care plan has been reviewed with [facility], Dr Jackson, who consulted formally - appreciate his consult & recs. Follow-up with rheumatology as an outpatient Having increased pain in her hands again on 09/21-Increase IV Dilaudid to 0.5 mg for severe pain and continue Dilaudid 0.25 Mg IV for moderate pain -Restart Cymbalta 30 mg daily for neuropathic pain which will also help with her seemingly depressed mood (4) Dermatomyositis with respiratory involvement: Plan: See above Cause of progressive prox muscle weakness, dysphagia, rash, etc. 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 (6) Breast cancer: Plan: left sided stage 3 at diagnosis s/p chemo/XRT last spring/summer, followed by mastectomy 06/[address]arias extensive CT imaging and bone scan without obvious recurrence/mets although most recent CT chest with "thickening" of left chest wall noted Has not been able to start immunotherapy as recommended by oncology Likely will not build to start any treatment for this until her nutritional and performance status are much improved Follow-up with oncology as an outpatient (7) Severe protein-calorie malnutrition: Plan: ongoing, present since spring 2021 in the setting of newly diagnosed breast ca and neoadjuvant chemo/radiation during that time period. s/p PEG tube placement 01/2022. Is on enteral nutrition via PEG (Peptamen 1.5). -Dietary recommends we run tube feedings DURING THE DAY to help satiate her hunger; further, her hypoxia and aspiration events tend to be at night-time leading to CPAP use thus - will run tube feedings during the daytime from 0600 to 2100 Receiving Peptamen 1.5 during these hours Slowly increasing by y 10cc/hr daily to goal of 60cc/hr-up to 40 mL/h today and tolerating H20 flushes q4h and with meds Follow CBC, BMP, magnesium, phosphorus in the a.m. and replace electrolytes as needed-give magnesium today 2 g -Patient requesting repeat video swallow with speech therapy for early next week to see if she can tolerate anything by mouth safely again-video swallow ordered (8) Leukocytosis: Plan: severe at time of admission (40+) - resolved part of the leukocytosis may have been steroid-related; part of the elevated wbc due to severe pneumonia Now resolved (9) Hypertension: Plan: We will now convert metoprolol IV 3 times daily to metoprolol via PEG tube for tomorrow (10) Vitamin B12 deficiency: Plan: dx earlier this fall - level now improved / normal (11) Hyponatremia: Plan: suspected SIADH baseline Na level about 130 Na levels remain acceptable and are now up to 134 and remained stable (12) Chronic obstructive pulmonary disease: Plan: suspected emphysematous changes on imaging long standing tobacco history cont bronchodilators cont steroids cont NaCl nebs BID cont pulm toilet (cough assist, etc) Cough and overall respiratory status improved, weaned to 3 L nasal cannula now since most recent aspiration event (13) Acute metabolic encephalopathy: Plan: resolved back to baseline likely combination of meds (ativan , etc), acute illness (pneumonia, etc) earlier this stay Have discontinued gabapentin, would avoid Ativan (14) Dysphagia: Plan: 2nd to oropharyngeal involvement from dermatomyositis see above re: steroids, IVIG, etc strict NPO except ice chips speech re-eval --next week with video swallow-ordered NPO until that time (15) DVT prophylaxis: Plan: lovenox 30mg daily (16) Candidiasis of mouth and esophagus: Plan: nystatin 5cc qid - improved-last day of treatment is 09/22 (17) Volume overload: Plan: Now resolved after multiple doses of IV Lasix Plan updated pt's daughter at bedside today extensively appreciate palliative care consultation to address goals of care prognosis is guarded The patient says she is "not ready to give up yet" and is hoping that with the high-dose steroids/IVIG, that she will be able to improve in order to complete her treatment for breast cancer Continue PT/OT Admission and Anticipated Discharge Date Admission Date: September 02, 2022 Subjective Patient reports the hand and her pains returned overnight and is not improved by much with low-dose of IV Dilaudid. She had 1 small bowel movement today that was negative for C. difficile. She is tolerating tube feeds increased to 40 mL/h today She is asking when she can eat by mouth again No shortness of breath. Is coughing up sputum. Remains on 3 LNC supplemental O2 but pulse ox is 99% Telemetry with normal sinus rhythm with rates in the 60s to 80s Review of Systems Review of Systems: All systems reviewed & are unremarkable except as noted in HPI & below Physical Exam Physical Exam: gen - comfortable, no distress, cachectic, but NAD heart - RRR, s1 s2, no murmur lungs - CTA anteriorly, decreased BS at right base; no wheeze or rales or distre ss chest - a-port clean abd - soft NT ND BS+; scaphoid abdomen, PEG tube site clean ext - no edema skin - erythematous rash over most of face, neck, chest, and dorsum hands-mild psych - a/o x 3, flat affect Results & Data Results & Data ([facility]) Vital Signs (Past 12 Hours) Vital Signs Pulse Pulse Resp BP BP Pulse Ox O2 Del Method 09/21/22 13:39 87 144/74 H 09/21/22 09:12 133/78 09/21/22 09:04 79 09/21/22 07:55 Room Air 09/21/22 07:16 79 18 96 Nasal Cannula O2 Flow Rate 09/21/22 13:39 09/21/22 09:12 09/21/22 09:04 09/21/22 07:55 09/21/22 07:16 3 Laboratory Results 09/21/22 09/21/22 Range/Units 09:35 07:35 Sodium 134 L (136-145) mmol/L Potassium 4.2 (3.5-5.1) mmol/L Chloride 101 (98-107) mmol/L Carbon Dioxide 29 (21-32) mmol/L Anion Gap 4 (3-11) BUN 43 H (6-23) mg/dl Creatinine 0.55 L (0.6-1.2) mg/dl Est Cr Clr Drug Dosing 48.2 ml/min Est GFR ( Amer) 107.8 ml/min Est GFR (Non-Af Amer) 93.1 ml/min BUN/Creatinine Ratio 78.2 H (10-20) Glucose 106 H (70-99(Fasting)) mg/dl Calcium 8.9 (8.5-10.1) mg/dl Phosphorus 2.5 (2.5-4.9) mg/dl Magnesium 1.5 L (1.7-2.4) mg/dl Stl C. diff Tox B Gene Negative Cdiff Gene (Neg) PG Care Time/CCT Total # of Minutes Spent Total Time Spent with Patient: Total time spent is greater than 50% in coordination of care (as documented) at patient's floor/unit and/or counseling patient: Coding Level of Care Code 62827 Subseq Hosp Care Lvl 3 Diagnoses Acute respiratory failure with hypoxia J96.01 Bilateral pneumonia J18.9 Myositis M60.9 Dermatomyositis with respiratory involvement M33.91 SUE positive R76.8 Breast cancer C50.912 Breast location: unspecified site of breast Estrogen receptor status: unspecified Laterality: left Patient sex: female Severe protein-calorie malnutrition E43 Leukocytosis D72.829 Hypertension I10 Hypertension type: primary hypertension Vitamin B12 deficiency E53.8 Hyponatremia E87.1 Chronic obstructive pulmonary disease J44.9 Acute metabolic encephalopathy G93.41 Dysphagia R13.10 DVT prophylaxis Z29.9 Candidiasis of mouth and esophagus B37.81; B37.0 Volume overload E87.70 (1) Breast cancer Breast location: unspecified site of breast Estrogen receptor status: unspecified Laterality: left Patient sex: female Qualified Code(s): C50.912 - Malignant neoplasm of unspecified site of left female breast (2) Hypertension Hypertension type: primary hypertension Qualified Code(s): I10 - Essential (primary) hypertension
[2022-09-21] MEDS: DULoxetine HCL 30 MG CAP PO SCH (20:04)
[2022-09-21] MEDS: HEPARIN 100 UNIT/ML 5ML FLUSH FLUSH PRN (22:01)
[2022-09-21] MEDS: METOPROLOL TARTRATE 25 MG TAB PO SCH (22:01)
[2022-09-22] MEDS: HYDROmorphone INJ 0.5 MG/0.5 ML SYR IV PRN ×3 (01:12→20:24)
[2022-09-22] MEDS: CEFEPIME 2,000 MG in SYRINGE 0 ML IV SCH ×2 (01:12→13:36)
[2022-09-22] MEDS: IPRATROPIUM BROMIDE NEB SOLN 0.02% 2.5 ML VIAL INH SCH ×3 (02:08→17:39)
[2022-09-22] MEDS: LEVALBUTEROL 1.25MG/0.5ML NEB INH SCH ×3 (02:09→17:39)
[2022-09-22] MEDS: ONDANSETRON INJ 2 MG/ML 2 ML VIAL IV PRN (04:40)
[2022-09-22] MEDS: metroNIDAZOLE 500 MG/100 ML BAG IV SCH ×3 (04:55→20:46)
[2022-09-22] MEDS: TUBE FEEDING WATER FLUSH PEG SCH ×5 (04:56→18:33)
[2022-09-22] MEDS: PEPTAMEN 1.5 CAL 1,000 ML BAG PEG SCH (05:19)
[2022-09-22] MEDS: INSULIN ASPART PER UNIT SC SCH ×3 (05:20→18:33)
[2022-09-22] MEDS: HEPARIN 100 UNIT/ML 5ML FLUSH FLUSH PRN (06:10)
[2022-09-22 06:53] LABS: Albumin Globulin Ratio 0.8 (0.9-2); Albumin Level 2.9 gm/dl (3.4-5.0); BUN Creatinine Ratio 74.1 (10-20); Bilirubin,Total 0.5 mg/dl (0.2-1.0); Calcium 8.4 mg/dl (8.5-10.1); Creatinine Clr Calc Pharmacy 53.8 ml/min; Est GFR (African American) 108.5 ml/min; Est GFR (Non-African American) 93.6 ml/min; Globulin 3.6 gm/dl (2.5-4.0); Magnesium 1.7 mg/dl (1.7-2.4); Phosphorus 2.4 mg/dl (2.5-4.9); Total Protein 6.5 gm/dl (6.0-8.3)
[2022-09-22] MEDS: SODIUM CHLOR 7% 4 ML NEB NEB SCH ×2 (07:02→17:49)
[2022-09-22] MEDS ORDERED: POTASSIUM PHOS 3 MMOL/1 ML INFUSION IV STA (09:13)
[2022-09-22] MEDS ORDERED: SODIUM PHOSPHATE 3 MMOL/1 ML INFUSION IV STA (09:14)
[2022-09-22] MEDS ORDERED: SODIUM PHOSPHATE 15 MMOL in SODIUM CHLORIDE 0.9% 250 ML IV ONE (09:30)
[2022-09-22] MEDS: methylPREDNISolone 40 MG in SYRINGE 0 ML IV SCH (09:32)
[2022-09-22] MEDS: DULoxetine HCL 30 MG CAP PO SCH (09:32)
[2022-09-22] MEDS: LANSOPRAZOLE 30 MG SOLTAB PEG SCH (09:33)
[2022-09-22] MEDS: CYANOCOBALAMIN (B-12) 500 MCG TABLET PEG SCH (09:34)
[2022-09-22] MEDS: ENOXAPARIN INJ 30 MG/0.3 ML SYR SQ SCH (09:36)
[2022-09-22] MEDS: LANTUS PER UNIT CHARGE SQ SCH (09:37)
[2022-09-22] MEDS: METOPROLOL TARTRATE 25 MG TAB PO SCH ×2 (09:39→20:24)
[2022-09-22] MEDS: MAGNESIUM SULFATE / D5W 1 GM/100 ML BAG IV SCH ×2 (10:11→12:28)
--- NOTE | 2022-09-22 18:53 | Hospitalist Progress Note ---
Date of Service September 22, 2022 Assessment & Plan (1) Acute respiratory failure with hypoxia: Plan: 2nd to b/l lower lobe pneumonia, mucoid impaction of bronchi especially on right, RML collapse, some element of volume overload/pulmonary edema, and emphysema. Acute worsening on 09/13 AM. STAT CTA Chest 09/13 at that time without PEs. However - progressive mucoid impaction with RML collapse seen. She continued to have intermittent episodes of hypoxia and acute worsening likely aspiration events, mucoid impaction, shunting, etc. Some of the aspiration may be due to the tube feedings themselves. Now much improved, remains on 3 LNC Is tolerating slow increase in tube feeds again She previously completed a 10-day course of IV zosyn; now back on Cefepime/flagyl due to recent new infiltrates on cxr. Continue through 09/23/2022 to complete a 7-day course Previously completed 5+ days of high-dose solumedrol 125mg BID; was placed on 50mg prednisone/day for dermatomyositis; then prednisone changed back to methylprednisolone 40mg daily. Prognosis has been quite guarded due to the recurrent respiratory issues, aspiration, respiratory weakness from deconditioning & dermatomyositis, etc. HOWEVER - cautiously optimistic that she has been more stable the last few days Rheumatology following for dermatomyositis which is likely cause of dysphagia The recovery from her respiratory and oropharyngeal involvement from the de rmatomyositis may take several more weeks or more. (2) Bilateral pneumonia: Plan: b/l lower lobe. 2nd aspiration. Improving clinically (3) Myositis: Plan: During her 06/2022 to 07/2022 prolonged hospitalization she underwent an extensive work-up looking for her b/l LE weakness and back pain. Most of her weakness was of the hip girdle muscles. She underwent MRIs of the spine along with extensive blood work. She was on empiric steroids (Dexamethasone) at that time. CPK was mildly elevated but aldolase was wnl. CRP was 0. She was evaluated by [facility] during the prior hospitalization. Her LE weakness gradually improved during that hospital stay and she was walking nearly 100 feet by time of discharge. Studies for myasthenia gravis, autoimmune disease (SUE, etc), and other neurological conditions were dispatched. She had f/u with [facility] shortly after discharge. EMGs of all 4 limbs were being planned. Her weakness progressed over July into August; she ultimately was recently readmitted on 09/02/22. Prior attending, Dr Nur, dispatched additional blood tests for myositis earlier this stay (myositis-specific auto ab's). MRIs of b/l thighs showed significant inflammation of the thigh muscles. 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 This is highly associated with dermatomyositis and underlying malignancy. Thus, her proximal muscle weakness of the legs may be due to anti TIF-1 gamma antibody-positive DM. Rash of face/neck/chest/hands is likely dermatomyositis related. Also with pain in the hands Dysphagia can be a symptom of dermatomyositis as well due to weakness of muscles of swallowing. Recent positive SUE fits with her clinical picture. In light of progressive dysphagia and worsening prox muscle weakness - and overall clinical status continuing to worsen -initiated high-dose steroids -- * Solumedrol 125mg IV BID PM of 09/10/22. Completed -6 days of such. * Was briefly on prednisone; now back to once daily solumedrol. Will need to switch back to prednisone 50 mg daily-further steroid taper needs to be discussed with rheumatology * Completed IVIG x 5 days on 09/12. Will need next round of IVIG again in 4 weeks around 10/10/2022. Increased PPI to twice daily dosing for GI prophy while on high-dose steroids. If malignancy-related dermatomyositis is indeed present is there still underlying active breast ca? CT chest/abd/pelvis does not show obvious recurrence or metastatic disease although there is thickening of the left chest wall in vicinity of prior mastectomy. Recent bone scan was negative for skeletal mets. Need for MRI brain? CT head recently neg for obvious mets. She has not been able to start her immunotherapy for breast cancer given her very poor functional status and multiple hospitalizations Prognosis guarded given the severity of her dermatomyositis and progressive respiratory issues. The above care plan has been reviewed with [facility]ology, Dr Jackson, who consulted formally - appreciate his consult & recs. Follow-up with rheumatology as an outpatient Having increased pain in her hands again on 09/21-Increase IV Dilaudid to 0.5 mg for severe pain and continue Dilaudid 0.25 Mg IV for moderate pain -Restarted Cymbalta 30 mg daily for neuropathic pain which will also help with her seemingly depressed mood -Continue prednisone 50 mg daily (4) Dermatomyositis with respiratory involvement: Plan: See above Cause of progressive prox muscle weakness, dysphagia, rash, etc. 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 (6) Breast cancer: Plan: left sided stage 3 at diagnosis s/p chemo/XRT last spring/summer, followed by mastectomy 06/[address]arias extensive CT imaging and bone scan without obvious recurrence/mets although most recent CT chest with "thickening" of left chest wall noted Has not been able to start immunotherapy as recommended by oncology Likely will not build to start any treatment for this until her nutritional and performance status are much improved Follow-up with oncology as an outpatient (7) Severe protein-calorie malnutrition: Plan: ongoing, present since spring 2021 in the setting of newly diagnosed breast ca and neoadjuvant chemo/radiation during that time period. s/p PEG tube placement 01/2022. Is on enteral nutrition via PEG (Peptamen 1.5). -Dietary recommends we run tube feedings DURING THE DAY to help satiate her hunger; further, her hypoxia and aspiration events tend to be at night-time leading to CPAP use thus - will run tube feedings during the daytime from 0600 to 2100 Receiving Peptamen 1.5 during these hours Slowly increasing by y 10cc/hr daily to goal of 60cc/hr-up to 40 mL/h today and tolerating H20 flushes q4h and with meds-decrease frequency of free water flushes at 75 mL to every 6 hours given worsening hyponatremia today Follow CBC, BMP, magnesium, phosphorus in the a.m. and replace electrolytes as needed-give magnesium 1 g IV today and IV phosphorus -Patient requesting repeat video swallow with speech therapy for early next week to see if she can tolerate anything by mouth safely again-video swallow ordered- to be arranged by speech therapy (8) Hypertension: Plan: Continue metoprolol Controlled (9) Vitamin B12 deficiency: Plan: dx earlier this fall - level now improved / normal (10) Hyponatremia: Plan: suspected SIADH baseline Na level about 130 and was up to 134 Now back to 130 with increased free water flushes-decreasing free water flushes as above Follow BMP (11) Chronic obstructive pulmonary disease: Plan: suspected emphysematous changes on imaging long standing tobacco history cont bronchodilators but changed to twice daily from 4 times daily cont steroids cont NaCl nebs BID Discontinue chest PT Cough and overall respiratory status improved, weaned to 2 L nasal cannula now since most recent aspiration event when she was requiring high flow nasal cannula (12) Acute metabolic encephalopathy: Plan: resolved back to baseline likely combination of meds (ativan , etc), acute illness (pneumonia, etc) earlier this stay Have discontinued gabapentin, would avoid Ativan (13) Dysphagia: Plan: 2nd to oropharyngeal involvement from dermatomyositis see above re: steroids, IVIG, etc strict NPO except ice chips speech re-eval --next week with video swallow-ordered NPO until that time (14) Candidiasis of mouth and esophagus: Plan: Completed 10-day course of nystatin swish and spit (15) DVT prophylaxis: Plan: lovenox 30mg daily GI prophylaxis-changed IV Protonix to Prevacid per PEG tube Plan Disposition-continued stay The patient says she is "not ready to give up yet" and is hoping that with the high-dose steroids/IVIG, that she will be able to improve in order to complete her treatment for breast cancer Continue PT/OT Patient will need referrals to rehab which she is agreeable to Admission and Anticipated Discharge Date Admission Date: September 02, 2022 Subjective Patient had some nausea this morning but no vomiting. Had 2 loose bowel movements today. Now feeling better. Tolerating tube feeds. No shortness of breath. Is weaned to 2 L nasal cannula. Still with some pain in the hands That does seem to be helped somewhat by Dilaudid. Telemetry with normal sinus rhythm with rates 60s to 70s Review of Systems Review of Systems: All systems reviewed & are unremarkable except as noted in HPI & below Physical Exam Physical Exam: gen - comfortable, no distress, cachectic, but NAD heart - RRR, s1 s2, no murmur lungs - CTA anteriorly, decreased BS at right base; no wheeze or rales or dist ress chest - a-port clean abd - soft NT ND BS+; scaphoid abdomen, PEG tube site clean ext - no edema skin - erythematous rash over most of face, neck, chest, and dorsum hands-mild psych - a/o x 3, flat affect Results & Data Results & Data ([facility]) Vital Signs (Past 12 Hours) Vital Signs Temp Pulse Pulse Resp BP Pulse Ox O2 Del Method 09/22/22 17:41 73 18 97 Nasal Cannula 09/22/22 15:44 36.8 C 67 18 124/68 98 Nasal Cannula 09/22/22 08:00 75 09/22/22 08:00 Nasal Cannula 09/22/22 11:42 36.4 C L 71 16 114/60 97 Nasal Cannula 09/22/22 07:48 36.7 C 74 16 116/62 96 Nasal Cannula O2 Flow Rate 09/22/22 17:41 2 09/22/22 15:44 2 09/22/22 08:00 09/22/22 08:00 2 09/22/22 11:42 2 09/22/22 07:48 2 Laboratory Results 09/20/22 06:19 09/22/22 06:05 PG Care Time/CCT Total # of Minutes Spent Total Time Spent with Patient: Total time spent is greater than 50% in coordination of care (as documented) at patient's floor/unit and/or counseling patient: Coding Level of Care Code 29717 Subseq Hosp Care Lvl 2 Diagnoses Acute respiratory failure with hypoxia J96.01 Bilateral pneumonia J18.9 Myositis M60.9 Dermatomyositis with respiratory involvement M33.91 SUE positive R76.8 Breast cancer C50.912 Breast location: unspecified site of breast Estrogen receptor status: unspecified Laterality: left Patient sex: female Severe protein-calorie malnutrition E43 Hypertension I10 Hypertension type: primary hypertension Vitamin B12 deficiency E53.8 Hyponatremia E87.1 Chronic obstructive pulmonary disease J44.9 Acute metabolic encephalopathy G93.41 Dysphagia R13.10 Candidiasis of mouth and esophagus B37.81; B37.0 DVT prophylaxis Z29.9 (1) Breast cancer Breast location: unspecified site of breast Estrogen receptor status: unspecified Laterality: left Patient sex: female Qualified Code(s): C50.912 - Malignant neoplasm of unspecified site of left female breast (2) Hypertension Hypertension type: primary hypertension Qualified Code(s): I10 - Essential (primary) hypertension
[2022-09-23] MEDS: INSULIN ASPART PER UNIT SC SCH ×4 (00:14→18:26)
[2022-09-23] MEDS: TUBE FEEDING WATER FLUSH PEG SCH ×4 (00:15→18:27)
[2022-09-23] MEDS: ACETAMINOPHEN 10MG/ML Custom 650 MG in EMPTY BAG 0 ML IV PRN (00:43)
[2022-09-23] MEDS: CEFEPIME 2,000 MG in SYRINGE 0 ML IV SCH ×2 (02:29→13:40)
[2022-09-23] MEDS: metroNIDAZOLE 500 MG/100 ML BAG IV SCH ×3 (05:12→22:17)
[2022-09-23] MEDS: HYDROmorphone INJ 0.5 MG/0.5 ML SYR IV PRN ×3 (05:20→20:00)
[2022-09-23] MEDS: ONDANSETRON INJ 2 MG/ML 2 ML VIAL IV PRN ×3 (05:20→20:00)
[2022-09-23] MEDS: PEPTAMEN 1.5 CAL 1,000 ML BAG PEG SCH (05:56)
[2022-09-23] MEDS: LEVALBUTEROL 1.25MG/0.5ML NEB INH SCH ×2 (07:24→20:18)
[2022-09-23] MEDS: SODIUM CHLOR 7% 4 ML NEB NEB SCH ×2 (07:24→20:19)
[2022-09-23] MEDS: IPRATROPIUM BROMIDE NEB SOLN 0.02% 2.5 ML VIAL INH SCH ×2 (07:24→20:18)
[2022-09-23 08:26] LABS: BUN Creatinine Ratio 64.3 (10-20); Creatinine Clr Calc Pharmacy 48.2 ml/min; Est GFR (African American) 107.2 ml/min; Est GFR (Non-African American) 92.5 ml/min; Magnesium 1.9 mg/dl (1.7-2.4); Phosphorus 3.1 mg/dl (2.5-4.9); Potassium 3.7 mmol/L (3.5-5.1)
[2022-09-23] MEDS: ENOXAPARIN INJ 30 MG/0.3 ML SYR SQ SCH (09:04)
[2022-09-23] MEDS: METOPROLOL TARTRATE 25 MG TAB PO SCH ×2 (09:06→22:09)
[2022-09-23] MEDS: DULoxetine HCL 30 MG CAP PO SCH (09:06)
[2022-09-23] MEDS: predniSONE 50 MG TAB PEG SCH (09:06)
[2022-09-23] MEDS: CYANOCOBALAMIN (B-12) 500 MCG TABLET PEG SCH (09:06)
[2022-09-23] MEDS: LANSOPRAZOLE 30 MG SOLTAB PEG SCH (09:06)
[2022-09-23] MEDS: LANTUS PER UNIT CHARGE SQ SCH (09:32)
--- NOTE | 2022-09-23 19:42 | Hospitalist Progress Note ---
Date of Service September 23, 2022 Assessment & Plan (1) Acute respiratory failure with hypoxia: Plan: 2nd to b/l lower lobe pneumonia, mucoid impaction of bronchi especially on right, RML collapse, some element of volume overload/pulmonary edema, and emphysema. Acute worsening on 09/13 AM. STAT CTA Chest 09/13 at that time without PEs. However - progressive mucoid impaction with RML collapse seen. She continued to have intermittent episodes of hypoxia and acute worsening likely aspiration events, mucoid impaction, shunting, etc. Some of the aspiration may be due to the tube feedings themselves. Now much improved, remains on 3 LNC Is tolerating slow increase in tube feeds again She previously completed a 10-day course of IV zosyn; now back on Cefepime/flagyl due to recent new infiltrates on cxr. Continue through 09/23/2022 to complete a 7-day course Previously completed 5+ days of high-dose solumedrol 125mg BID; was placed on 50mg prednisone/day for dermatomyositis; then prednisone changed back to methylprednisolone 40mg daily. Prognosis has been quite guarded due to the recurrent respiratory issues, aspiration, respiratory weakness from deconditioning & dermatomyositis, etc. HOWEVER - cautiously optimistic that she has been more stable the last few days Rheumatology following for dermatomyositis which is likely cause of dysphagia The recovery from her respiratory and oropharyngeal involvement from the derm atomyositis may take several more weeks or more. (2) Bilateral pneumonia: Plan: b/l lower lobe. 2nd aspiration. Improving clinically (3) Myositis: Plan: During her 06/2022 to 07/2022 prolonged hospitalization she underwent an extensive work-up looking for her b/l LE weakness and back pain. Most of her weakness was of the hip girdle muscles. She underwent MRIs of the spine along with extensive blood work. She was on empiric steroids (Dexamethasone) at that time. CPK was mildly elevated but aldolase was wnl. CRP was 0. She was evaluated by [facility] during the prior hospitalization. Her LE weakness gradually improved during that hospital stay and she was walking nearly 100 feet by time of discharge. Studies for myasthenia gravis, autoimmune disease (SUE, etc), and other neurological conditions were dispatched. She had f/u with [facility] shortly after discharge. EMGs of all 4 limbs were being planned. Her weakness progressed over July into August; she ultimately was recently readmitted on 09/02/22. Prior attending, Dr Nur, dispatched additional blood tests for myositis earlier this stay (myositis-specific auto ab's). MRIs of b/l thighs showed significant inflammation of the thigh muscles. 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 This is highly associated with dermatomyositis and underlying malignancy. Thus, her proximal muscle weakness of the legs may be due to anti TIF-1 gamma antibody-positive DM. Rash of face/neck/chest/hands is likely dermatomyositis related. Also with pain in the hands Dysphagia can be a symptom of dermatomyositis as well due to weakness of muscles of swallowing. Recent positive SUE fits with her clinical picture. In light of progressive dysphagia and worsening prox muscle weakness - and overall clinical status continuing to worsen -initiated high-dose steroids -- * Solumedrol 125mg IV BID PM of 09/10/22. Completed -6 days of such. * Was briefly on prednisone; now back to once daily solumedrol. Will need to switch back to prednisone 50 mg daily-further steroid taper needs to be discussed with rheumatology * Completed IVIG x 5 days on 09/12. Will need next round of IVIG again in 4 weeks around 10/10/2022. Increased PPI to twice daily dosing for GI prophy while on high-dose steroids. If malignancy-related dermatomyositis is indeed present is there still underlying active breast ca? CT chest/abd/pelvis does not show obvious recurrence or metastatic disease although there is thickening of the left chest wall in vicinity of prior mastectomy. Recent bone scan was negative for skeletal mets. Need for MRI brain? CT head recently neg for obvious mets. She has not been able to start her immunotherapy for breast cancer given her very poor functional status and multiple hospitalizations Prognosis guarded given the severity of her dermatomyositis and progressive respiratory issues. The above care plan has been reviewed with [facility] Rhe[facility]ology, Dr Jackson, who consulted formally - appreciate his consult & recs. Follow-up with rheumatology as an outpatient Having increased pain in her hands again on 09/21-Increase IV Dilaudid to 0.5 mg for severe pain and continue Dilaudid 0.25 Mg IV for moderate pain -Restarted Cymbalta 30 mg daily for neuropathic pain which will also help with her seemingly depressed mood -Continue prednisone 50 mg daily (4) Dermatomyositis with respiratory involvement: Plan: See above Cause of progressive prox muscle weakness, dysphagia, rash, etc. 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 (6) Breast cancer: Plan: left sided stage 3 at diagnosis s/p chemo/XRT last spring/summer, followed by mastectomy 06/[address]arias extensive CT imaging and bone scan without obvious recurrence/mets although most recent CT chest with "thickening" of left chest wall noted Has not been able to start immunotherapy as recommended by oncology Likely will not build to start any treatment for this until her nutritional and performance status are much improved Follow-up with oncology as an outpatient (7) Severe protein-calorie malnutrition: Plan: ongoing, present since spring 2021 in the setting of newly diagnosed breast ca and neoadjuvant chemo/radiation during that time period. s/p PEG tube placement 01/2022. Is on enteral nutrition via PEG (Peptamen 1.5). -Dietary recommends we run tube feedings DURING THE DAY to help satiate her hunger; further, her hypoxia and aspiration events tend to be at night-time leading to CPAP use thus - will run tube feedings during the daytime from 0600 to 2100 Receiving Peptamen 1.5 during these hours Slowly increasing by y 10cc/hr daily to goal of 60cc/hr-up to 40 mL/h today and tolerating H20 flushes q4h and with meds-decrease frequency of free water flushes at 75 mL to every 6 hours given worsening hyponatremia today Follow CBC, BMP, magnesium, phosphorus in the a.m. and replace electrolytes as needed-give magnesium 1 g IV today and IV phosphorus -Patient requesting repeat video swallow with speech therapy for early next week to see if she can tolerate anything by mouth safely again-video swallow ordered- to be arranged by speech therapy (8) Hypertension: Plan: Continue metoprolol Controlled (9) Vitamin B12 deficiency: Plan: dx earlier this fall - level now improved / normal (10) Hyponatremia: Plan: suspected SIADH baseline Na level about 130 and was up to 134 Now back to 130 with increased free water flushes-decreasing free water flushes as above Follow BMP (11) Chronic obstructive pulmonary disease: Plan: suspected emphysematous changes on imaging long standing tobacco history cont bronchodilators but changed to twice daily from 4 times daily cont steroids cont NaCl nebs BID Discontinue chest PT Cough and overall respiratory status improved, weaned to 2 L nasal cannula now since most recent aspiration event when she was requiring high flow nasal cannula (12) Acute metabolic encephalopathy: Plan: resolved back to baseline likely combination of meds (ativan , etc), acute illness (pneumonia, etc) earlier this stay Have discontinued gabapentin, would avoid Ativan (13) Dysphagia: Plan: 2nd to oropharyngeal involvement from dermatomyositis see above re: steroids, IVIG, etc strict NPO except ice chips speech re-eval --next week with video swallow-ordered NPO until that time (14) Candidiasis of mouth and esophagus: Plan: Completed 10-day course of nystatin swish and spit (15) DVT prophylaxis: Plan: lovenox 30mg daily GI prophylaxis-changed IV Protonix to Prevacid per PEG tube Plan Disposition-continued stay The patient says she is "not ready to give up yet" and is hoping that with the high-dose steroids/IVIG, that she will be able to improve in order to complete her treatment for breast cancer Continue PT/OT Patient will need referrals to rehab which she is agreeable to Admission and Anticipated Discharge Date Admission Date: September 02, 2022 Subjective Patient had some improvement in the nausea but no loose bowel movement today Denies any acute complaints Physical Exam Physical Exam: Constitutional: Patient cachectic vitals as above. HEENT: No scleral injection or discharge. . Clear oropharynx without exudate. Neck: Supple without lymphadenopathy or thyromegaly. Trachea midline. Lungs: No wheezing or rhonchi Cardiac: Normal rhythm. No murmurs. . 2+ distal peripheral pulses. Abdomen:Bowel sounds present. Soft and nondistended. . No guarding . MSK: No cyanosis or clubbing. Extremities motor strength 5/5. Skin: No rashes, warm, dry. Neurologic: Grossly intact cranial nerves. Results & Data Results & Data ([facility]) Vital Signs (Past 12 Hours) Vital Signs Temp Pulse Pulse Resp BP Pulse Ox O2 Del Method 09/23/22 15:24 36.5 C 75 18 117/63 97 Room Air 09/23/22 15:20 69 09/23/22 08:00 70 09/23/22 11:30 36.9 C 63 19 116/57 L 97 Nasal Cannula 09/23/22 11:08 Nasal Cannula O2 Flow Rate 09/23/22 15:24 09/23/22 15:20 09/23/22 08:00 09/23/22 11:30 2 09/23/22 11:08 2 PG Care Time/CCT Total # of Minutes Spent Total Time Spent with Patient: Total time spent is greater than 50% in coordination of care (as documented) at patient's floor/unit and/or counseling patient: Coding Level of Care Code 91992 Subseq Hosp Care Lvl 2 Diagnoses Acute respiratory failure with hypoxia J96.01 Bilateral pneumonia J18.9 Myositis M60.9 Dermatomyositis with respiratory involvement M33.91 SUE positive R76.8 Breast cancer C50.912 Breast location: unspecified site of breast Estrogen receptor status: unspecified Patient sex: female Laterality: left Severe protein-calorie malnutrition E43 Hypertension I10 Hypertension type: primary hypertension Vitamin B12 deficiency E53.8 Hyponatremia E87.1 Chronic obstructive pulmonary disease J44.9 Acute metabolic encephalopathy G93.41 Dysphagia R13.10 Candidiasis of mouth and esophagus B37.81; B37.0 DVT prophylaxis Z29.9 (1) Breast cancer Breast location: unspecified site of breast Estrogen receptor status: unspecified Patient sex: female Laterality: left Qualified Code(s): C50.912 - Malignant neoplasm of unspecified site of left female breast (2) Hypertension Hypertension type: primary hypertension Qualified Code(s): I10 - Essential (primary) hypertension
[2022-09-24] MEDS: HYDROmorphone INJ 0.5 MG/0.5 ML SYR IV PRN ×6 (00:23→22:17)
[2022-09-24] MEDS: INSULIN ASPART PER UNIT SC SCH ×4 (00:25→18:04)
[2022-09-24] MEDS: TUBE FEEDING WATER FLUSH PEG SCH ×4 (00:26→18:05)
[2022-09-24] MEDS: CEFEPIME 2,000 MG in SYRINGE 0 ML IV SCH (02:43)
[2022-09-24] MEDS: ONDANSETRON INJ 2 MG/ML 2 ML VIAL IV PRN ×2 (02:43→09:59)
[2022-09-24] MEDS: metroNIDAZOLE 500 MG/100 ML BAG IV SCH (05:04)
[2022-09-24] MEDS: ACETAMINOPHEN 10MG/ML Custom 650 MG in EMPTY BAG 0 ML IV PRN ×2 (06:22→23:46)
[2022-09-24] MEDS: PEPTAMEN 1.5 CAL 1,000 ML BAG PEG SCH (06:31)
[2022-09-24] MEDS: IPRATROPIUM BROMIDE NEB SOLN 0.02% 2.5 ML VIAL INH SCH ×2 (07:17→20:36)
[2022-09-24] MEDS: SODIUM CHLOR 7% 4 ML NEB NEB SCH ×2 (07:17→20:36)
[2022-09-24] MEDS: LEVALBUTEROL 1.25MG/0.5ML NEB INH SCH ×2 (07:18→20:36)
[2022-09-24 07:52] LABS: Basophils # (auto) 0.01 K/uL (0-0.2); Basophils % (auto) 0.1 %; Eosinophils % (auto) 4.3 %; Immature Granulocytes # (auto) 0.14 K/uL (0.00-0.02); Immature Granulocytes % (auto) 1.5 %; Lymphocytes # (auto) 1.17 K/uL (1.2-3.4); Lymphocytes % (auto) 12.4 %; Monocytes # (auto) 1.58 K/uL (0.24-0.82); Monocytes % (auto) 16.8 %; Neutrophils % (auto) 64.9 %
[2022-09-24 07:53] LABS: Hemoglobin 7.5 g/dl (12.0-16.0); Mean Corpuscular Hgb Conc 32.6 g/dL (32.0-36.0); RDW Coefficient of Variation 15.8 % (11.5-14.5); RDW Standard Deviation 54.7 fL (36.4-46.3); Red Blood Count 2.42 M/uL (3.93-5.22)
[2022-09-24 08:02] LABS: BUN Creatinine Ratio 67.9 (10-20); Calcium 7.9 mg/dl (8.5-10.1); Creatinine Clr Calc Pharmacy 52.1 ml/min; Est GFR (African American) 109.2 ml/min; Est GFR (Non-African American) 94.2 ml/min; Potassium 3.7 mmol/L (3.5-5.1)
[2022-09-24] MEDS: METOPROLOL TARTRATE 25 MG TAB PO SCH ×2 (09:50→20:20)
[2022-09-24] MEDS: DULoxetine HCL 30 MG CAP PO SCH (09:50)
[2022-09-24] MEDS: predniSONE 50 MG TAB PEG SCH (09:51)
[2022-09-24] MEDS: ENOXAPARIN INJ 30 MG/0.3 ML SYR SQ SCH (09:51)
[2022-09-24] MEDS: CYANOCOBALAMIN (B-12) 500 MCG TABLET PEG SCH (09:51)
[2022-09-24] MEDS: LANSOPRAZOLE 30 MG SOLTAB PEG SCH (09:51)
[2022-09-24] MEDS: LANTUS PER UNIT CHARGE SQ SCH (09:52)
[2022-09-24] MEDS ORDERED: ONDANSETRON INJ 2 MG/ML 2 ML VIAL IV PRN (13:10)
[2022-09-24] MEDS ORDERED: GLUCOSE 10 TAB/TUBE PO PRN (13:15)
[2022-09-24] MEDS ORDERED: CARBOHYDRATES FOR HYPOGLYCEMIA PO PRN (13:15)
[2022-09-24] MEDS ORDERED: DEXTROSE 50% 50 ML SYRINGE IV PRN (13:15)
[2022-09-24] MEDS ORDERED: GLUCOSE 40% GEL 15 GM TUBE PO PRN (13:15)
[2022-09-24] MEDS ORDERED: GLUCAGON FOR INJ 1 MG VIAL IM PRN (13:15)
--- NOTE | 2022-09-24 13:48 | Fluoroscopy Report ---
FL video swallow CLINICAL HISTORY: 71 years-old Female with reassess dysphagia. Chronic dysphagia TECHNIQUE: Video fluoroscopic evaluation of swallowing was performed in the AP and lateral projection s by the speech pathology staff. The patient is fed thin liquid, mildly thick and pudding consistenci es. FLUOROSCOPY TIME: 3.5 minutes. COMPARISON STUDY: CTA chest 09/07/2022 FINDINGS: Aspiration with thin liquid barium. There is penetration without definite aspiration with t he mildly thickened consistency. Consistency is not documented extending past the upper esophageal sphincter with vallecular and pirif orm sinus retention. There is decreased epiglottic inversion. Multilevel spondylitic spurring of the cervical spine. IMPRESSION: 1. Aspiration with thin liquid barium. 2. Please see the speech pathologist report for detailed findings and recommendations. ACT 112: Negative or not required by law. Electronically signed by: Vlad Shelton M.D. 09/24/2022 1:47 PM
[2022-09-24] MEDS: LOPERAMIDE LIQUID 120 ML BOTTLE PO PRN ×2 (18:06→22:18)
--- NOTE | 2022-09-24 23:46 | Hospitalist Progress Note ---
Date of Service September 24, 2022 Assessment & Plan (1) Acute respiratory failure with hypoxia: Plan: 2nd to b/l lower lobe pneumonia, mucoid impaction of bronchi especially on right, RML collapse, some element of volume overload/pulmonary edema, and emphysema. Acute worsening on 09/13 AM. STAT CTA Chest 09/13 at that time without PEs. However - progressive mucoid impaction with RML collapse seen. She continued to have intermittent episodes of hypoxia and acute worsening likely aspiration events, mucoid impaction, shunting, etc. Some of the aspiration may be due to the tube feedings themselves. Now much improved, remains on 3 LNC Is tolerating slow increase in tube feeds again She previously completed a 10-day course of IV zosyn; now back on Cefepime/flagyl due to recent new infiltrates on cxr. Continue through 09/23/2022 to complete a 7-day course Previously completed 5+ days of high-dose solumedrol 125mg BID; was placed on 50mg prednisone/day for dermatomyositis; then prednisone changed back to methylprednisolone 40mg daily. Prognosis has been quite guarded due to the recurrent respiratory issues, aspiration, respiratory weakness from deconditioning & dermatomyositis, etc. HOWEVER - cautiously optimistic that she has been more stable the last few days Rheumatology following for dermatomyositis which is likely cause of dysphagia The recovery from her respiratory and oropharyngeal involvement from the derm atomyositis may take several more weeks or more. (2) Bilateral pneumonia: Plan: b/l lower lobe. 2nd aspiration. Improving clinically (3) Myositis: Plan: During her 06/2022 to 07/2022 prolonged hospitalization she underwent an extensive work-up looking for her b/l LE weakness and back pain. Most of her weakness was of the hip girdle muscles. She underwent MRIs of the spine along with extensive blood work. She was on empiric steroids (Dexamethasone) at that time. CPK was mildly elevated but aldolase was wnl. CRP was 0. She was evaluated by [facility] during the prior hospitalization. Her LE weakness gradually improved during that hospital stay and she was walking nearly 100 feet by time of discharge. Studies for myasthenia gravis, autoimmune disease (SUE, etc), and other neurological conditions were dispatched. She had f/u with [facility] shortly after discharge. EMGs of all 4 limbs were being planned. Her weakness progressed over July into August; she ultimately was recently readmitted on 09/02/22. Prior attending, Dr Nur, dispatched additional blood tests for myositis earlier this stay (myositis-specific auto ab's). MRIs of b/l thighs showed significant inflammation of the thigh muscles. 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 This is highly associated with dermatomyositis and underlying malignancy. Thus, her proximal muscle weakness of the legs may be due to anti TIF-1 gamma antibody-positive DM. Rash of face/neck/chest/hands is likely dermatomyositis related. Also with pain in the hands Dysphagia can be a symptom of dermatomyositis as well due to weakness of muscles of swallowing. Recent positive SUE fits with her clinical picture. In light of progressive dysphagia and worsening prox muscle weakness - and overall clinical status continuing to worsen -initiated high-dose steroids -- * Solumedrol 125mg IV BID PM of 09/10/22. Completed -6 days of such. * Was briefly on prednisone; now back to once daily solumedrol. Will need to switch back to prednisone 50 mg daily-further steroid taper needs to be discussed with rheumatology * Completed IVIG x 5 days on 09/12. Will need next round of IVIG again in 4 weeks around 10/10/2022. Increased PPI to twice daily dosing for GI prophy while on high-dose steroids. If malignancy-related dermatomyositis is indeed present is there still underlying active breast ca? CT chest/abd/pelvis does not show obvious recurrence or metastatic disease although there is thickening of the left chest wall in vicinity of prior mastectomy. Recent bone scan was negative for skeletal mets. Need for MRI brain? CT head recently neg for obvious mets. She has not been able to start her immunotherapy for breast cancer given her very poor functional status and multiple hospitalizations Prognosis guarded given the severity of her dermatomyositis and progressive respiratory issues. The above care plan has been reviewed with [facility], Dr Jackson, who consulted formally - appreciate his consult & recs. Follow-up with rheumatology as an outpatient Having increased pain in her hands again on 09/21-Increase IV Dilaudid to 0.5 mg for severe pain and continue Dilaudid 0.25 Mg IV for moderate pain -Restarted Cymbalta 30 mg daily for neuropathic pain which will also help with her seemingly depressed mood -Continue prednisone 50 mg daily (4) Dermatomyositis with respiratory involvement: Plan: See above Cause of progressive prox muscle weakness, dysphagia, rash, etc. 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 (6) Breast cancer: Plan: left sided stage 3 at diagnosis s/p chemo/XRT last spring/summer, followed by mastectomy 06/[address]arias extensive CT imaging and bone scan without obvious recurrence/mets although most recent CT chest with "thickening" of left chest wall noted Has not been able to start immunotherapy as recommended by oncology Likely will not build to start any treatment for this until her nutritional and performance status are much improved Follow-up with oncology as an outpatient (7) Severe protein-calorie malnutrition: Plan: ongoing, present since spring 2021 in the setting of newly diagnosed breast ca and neoadjuvant chemo/radiation during that time period. s/p PEG tube placement 01/2022. Is on enteral nutrition via PEG (Peptamen 1.5). -Dietary recommends we run tube feedings DURING THE DAY to help satiate her hunger; further, her hypoxia and aspiration events tend to be at night-time leading to CPAP use thus - will run tube feedings during the daytime from 0600 to 2100 Receiving Peptamen 1.5 during these hours Slowly increasing by y 10cc/hr daily to goal of 60cc/hr-up to 40 mL/h today and tolerating H20 flushes q4h and with meds-decrease frequency of free water flushes at 75 mL to every 6 hours given worsening hyponatremia today Patient had videofluoroscopy done today that reveals continued aspiration - will discussed with the therapist regarding strategies to address this (8) Hypertension: Plan: Continue metoprolol Controlled (9) Vitamin B12 deficiency: Plan: dx earlier this fall - level now improved / normal (10) Hyponatremia: Plan: suspected SIADH baseline Na level about 130 and was up to 134 Now back to 130 with increased free water flushes-decreasing free water flushes as above Follow BMP (11) Chronic obstructive pulmonary disease: Plan: suspected emphysematous changes on imaging long standing tobacco history cont bronchodilators but changed to twice daily from 4 times daily cont steroids cont NaCl nebs BID Discontinue chest PT Cough and overall respiratory status improved, weaned to 2 L nasal cannula now since most recent aspiration event when she was requiring high flow nasal cannula (12) Acute metabolic encephalopathy: Plan: resolved back to baseline likely combination of meds (ativan , etc), acute illness (pneumonia, etc) earlier this stay Have discontinued gabapentin, would avoid Ativan (13) Dysphagia: Plan: 2nd to oropharyngeal involvement from dermatomyositis see above re: steroids, IVIG, etc strict NPO except ice chips speech re-eval --next week with video swallow-ordered NPO until that time (14) Candidiasis of mouth and esophagus: Plan: Completed 10-day course of nystatin swish and spit (15) DVT prophylaxis: Plan: lovenox 30mg daily GI prophylaxis-changed IV Protonix to Prevacid per PEG tube Plan Disposition-continued stay The patient says she is "not ready to give up yet" and is hoping that with the high-dose steroids/IVIG, that she will be able to improve in order to complete her treatment for breast cancer Continue PT/OT Patient will need referrals to rehab which she is agreeable to Admission and Anticipated Discharge Date Admission Date: September 02, 2022 Subjective Patient had worsening nausea symptoms today that responded to Zofran Patient also had reported 2 loose stools today as well Swallowing eval done by speech-language pathology reveals tendency to aspirate Physical Exam Physical Exam: Constitutional: Patient cachectic vitals as above. HEENT: No scleral injection or discharge. . Clear oropharynx without exudate. Neck: Supple without lymphadenopathy or thyromegaly. Trachea midline. Lungs: No wheezing or rhonchi Cardiac: Normal rhythm. No murmurs. . 2+ distal peripheral pulses. Abdomen: Soft and nondistended. . No guarding . MSK: No cyanosis or clubbing. Extremities motor strength 5/5. Skin: No rashes, warm, dry. Neurologic: Grossly intact cranial nerves. Results & Data Results & Data ([facility]) Vital Signs (Past 12 Hours) Vital Signs Temp Pulse Pulse Resp BP Pulse Ox O2 Del Method 09/24/22 22:46 36.6 C 67 19 135/68 97 Nasal Cannula 09/24/22 20:00 36.7 C 70 18 112/74 98 Nasal Cannula 09/24/22 14:06 65 09/24/22 15:25 36.8 C 64 18 130/61 98 Nasal Cannula 09/24/22 12:13 36.6 C 61 16 133/60 97 Nasal Cannula O2 Flow Rate 09/24/22 22:46 2 09/24/22 20:00 2 09/24/22 14:06 09/24/22 15:25 2 09/24/22 12:13 2 PG Care Time/CCT Total # of Minutes Spent Total Time Spent with Patient: Total time spent is greater than 50% in coordination of care (as documented) at patient's floor/unit and/or counseling patient: Coding Level of Care Code 35840 Subseq Hosp Care Lvl 2 Diagnoses Acute respiratory failure with hypoxia J96.01 Bilateral pneumonia J18.9 Myositis M60.9 Dermatomyositis with respiratory involvement M33.91 SUE positive R76.8 Breast cancer C50.912 Breast location: unspecified site of breast Estrogen receptor status: unspecified Patient sex: female Laterality: left Severe protein-calorie malnutrition E43 Hypertension I10 Hypertension type: primary hypertension Vitamin B12 deficiency E53.8 Hyponatremia E87.1 Chronic obstructive pulmonary disease J44.9 Acute metabolic encephalopathy G93.41 Dysphagia R13.10 Candidiasis of mouth and esophagus B37.81; B37.0 DVT prophylaxis Z29.9 (1) Breast cancer Breast location: unspecified site of breast Estrogen receptor status: unspecified Patient sex: female Laterality: left Qualified Code(s): C50.912 - Malignant neoplasm of unspecified site of left female breast (2) Hypertension Hypertension type: primary hypertension Qualified Code(s): I10 - Essential (primary) hypertension
[2022-09-25] MEDS: TUBE FEEDING WATER FLUSH PEG SCH ×5 (00:02→23:43)
[2022-09-25] MEDS: LANSOPRAZOLE 30 MG SOLTAB PEG SCH ×2 (00:03→23:42)
[2022-09-25] MEDS: INSULIN ASPART PER UNIT SC SCH ×5 (00:10→23:43)
[2022-09-25] MEDS: HYDROmorphone INJ 0.5 MG/0.5 ML SYR IV PRN ×6 (02:21→22:31)
[2022-09-25] MEDS ORDERED: LOPERAMIDE HCL 2 MG CAP PO STA (04:23)
[2022-09-25] MEDS: PEPTAMEN 1.5 CAL 1,000 ML BAG PEG SCH (05:43)
[2022-09-25 07:08] LABS: BUN Creatinine Ratio 76.1 (10-20); Calcium 8.2 mg/dl (8.5-10.1); Creatinine Clr Calc Pharmacy 59.8 ml/min; Est GFR (African American) 114.4 ml/min; Est GFR (Non-African American) 98.7 ml/min
[2022-09-25 07:11] LABS: Hematocrit (blood only) 23.2 % (34.1-44.9); Hemoglobin 7.6 g/dl (12.0-16.0); Mean Corpuscular Hemoglobin 31.4 pg (25.0-34.0); Mean Corpuscular Hgb Conc 32.8 g/dL (32.0-36.0); Mean Corpuscular Volume 95.9 fL (80.0-100.0); RDW Coefficient of Variation 15.8 % (11.5-14.5); RDW Standard Deviation 55.6 fL (36.4-46.3); Red Blood Count 2.42 M/uL (3.93-5.22); White Blood Count 8.14 K/ul (4.8-10.8)
[2022-09-25] MEDS: LEVALBUTEROL 1.25MG/0.5ML NEB INH SCH ×2 (07:18→19:49)
[2022-09-25] MEDS: IPRATROPIUM BROMIDE NEB SOLN 0.02% 2.5 ML VIAL INH SCH ×2 (07:18→19:42)
[2022-09-25] MEDS: SODIUM CHLOR 7% 4 ML NEB NEB SCH ×2 (07:18→19:42)
[2022-09-25 07:20] LABS: Basophils # (auto) 0.01 K/uL (0-0.2); Basophils % (auto) 0.1 %; Eosinophils # (auto) 0.29 K/uL (0-0.50); Eosinophils % (auto) 3.6 %; Immature Granulocytes # (auto) 0.19 K/uL (0.00-0.02); Immature Granulocytes % (auto) 2.3 %; Lymphocytes # (auto) 1.14 K/uL (1.2-3.4); Monocytes # (auto) 1.25 K/uL (0.24-0.82); Monocytes % (auto) 15.4 %; Neutrophils # (auto) 5.26 K/uL (1.4-6.5); Neutrophils % (auto) 64.6 %; RBC Morphology Unremarkable
[2022-09-25] MEDS: CYANOCOBALAMIN (B-12) 500 MCG TABLET PEG SCH (09:37)
[2022-09-25] MEDS: METOPROLOL TARTRATE 25 MG TAB PO SCH ×2 (09:37→20:29)
[2022-09-25] MEDS: predniSONE 50 MG TAB PEG SCH (09:37)
[2022-09-25] MEDS: DULoxetine HCL 30 MG CAP PO SCH (09:38)
[2022-09-25] MEDS: ENOXAPARIN INJ 30 MG/0.3 ML SYR SQ SCH (09:38)
[2022-09-25] MEDS: LANTUS PER UNIT CHARGE SQ SCH (09:39)
--- NOTE | 2022-09-25 12:06 | Palliative Care Progress Note ---
Date of Service September 25, 2022 Assessment & Plan (1) Pain: Plan: She has been reluctant to use pain medications in the past because of concern about sedation. She is using hydromorphone more frequently and tells me that while she does have some physical pain, she is also using it as an escape. We discussed distinction between physical and emotional pain and importance of addressing it appropriately. She is interested in doing this. (2) Anxiety: Plan: She has had paranoia with lorazepam in the past and daughter does not want additional lorazepam. We discussed trial of low dose clonazepam which is sometimes better tolerated. I also discussed this with her daughter on the phone. Both are agreeable. She is also currently on duloxetine. (3) Palliative care encounter: Plan: Mrs. Benson has consistently said that she wants to pursue whatever treatment is available to prolong her life. She has maintained a positive attitude. However in the last day or two, she has been more discouraged and expressed concern about being a burden. She was particularly disappointed with results from swallowing study. She had been hoping for some improvement. She sees eating as a aponte to getting better. She was very clear that she did not want to discuss this today. When I was leaving, she did ask if I would come back and talk another time. I spoke with her daughter, Gilda, on the phone. Gilda feels that her mother is realizing that she is not going to get better. We talked about a family meeting to address her emotional pain and discuss plan of care with these new developments. We will meet at 3 pm on 09/27. Admission and Anticipated Discharge Date Admission Date: September 02, 2022 Subjective Drowsy but arousable. She has had 3.25mg in prn hydromorphone for pain. She has been complaining of pain in her hands and low back. Review of Systems Review of Systems: ESAS Pain 0/3 Dyspnea 0/3 Anxiety 2/3 Fatigue 3/3 Drowsiness 1/3 Physical Exam Constitutional: + cachectic ENMT: Mouth: + dry oral mucous membranes Respiratory: normal respiratory effort; no labored breathing Gastrointestinal (Abdomen): peg tube Musculoskeletal: Extremities: + muscle atrophy Neurologic: Speech / Cognition: normal cognition Results & Data ([facility]) Vital Signs (Past 12 Hours) Vital Signs Temp Pulse Pulse Resp BP Pulse Ox O2 Del Method 09/25/22 06:06 64 09/25/22 10:12 98.2 F 75 22 135/70 2 L Nasal Cannula 09/25/22 07:03 97.9 F 66 22 147/72 H 98 Nasal Cannula 09/25/22 02:18 98.2 F 60 20 121/71 97 Nasal Cannula 09/25/22 00:30 72 O2 Flow Rate 09/25/22 06:06 09/25/22 10:12 09/25/22 07:03 2 09/25/22 02:18 2 09/25/22 00:30 PG Care Time/CCT Total # of Minutes Spent Total Time Spent: 47 Total Time Spent with Patient: Total time spent is greater than 50% in coordination of care (as documented) at patient's floor/unit and/or counseling patient:[id number] goals of care, symptom management, patient and family education and support. Coding Level of Care Code 90857 Subseq Hosp Care Lvl 3 Diagnoses Pain R52 Anxiety F41.9 Palliative care encounter Z51.5
--- NOTE | 2022-09-25 13:55 | Hospitalist Progress Note ---
Date of Service September 25, 2022 Assessment & Plan (1) Acute respiratory failure with hypoxia: Plan: 2nd to b/l lower lobe pneumonia, mucoid impaction of bronchi especially on right, RML collapse, some element of volume overload/pulmonary edema, and emphysema. Acute worsening on 09/13 AM. STAT CTA Chest 09/13 at that time without PEs. However - progressive mucoid impaction with RML collapse seen. She continued to have intermittent episodes of hypoxia and acute worsening likely aspiration events, mucoid impaction, shunting, etc. Some of the aspiration may be due to the tube feedings themselves. Now much improved, remains on 3 LNC Is tolerating slow increase in tube feeds again She previously completed a 10-day course of IV zosyn; now back on Cefepime/flagyl due to recent new infiltrates on cxr. Continue through 09/23/2022 to complete a 7-day course Previously completed 5+ days of high-dose solumedrol 125mg BID; was placed on 50mg prednisone/day for dermatomyositis; then prednisone changed back to methylprednisolone 40mg daily. Prognosis has been quite guarded due to the recurrent respiratory issues, aspiration, respiratory weakness from deconditioning & dermatomyositis, etc. HOWEVER - cautiously optimistic that she has been more stable the last few days Rheumatology following for dermatomyositis which is likely cause of dysphagia The recovery from her respiratory and oropharyngeal involvement from the dermatomyositis may take several more weeks or more. 09/25-respiratory status is stabilized Concern for aspiration persists and hence patient is presently on tube feeds with aspiration precautions (2) Bilateral pneumonia: Plan: b/l lower lobe. 2nd aspiration. Improving clinically (3) Myositis: Plan: During her 06/2022 to 07/2022 prolonged hospitalization she underwent an extensive work-up looking for her b/l LE weakness and back pain. Most of her weakness was of the hip girdle muscles. She underwent MRIs of the spine along with extensive blood work. She was on empiric steroids (Dexamethasone) at that time. CPK was mildly elevated but aldolase was wnl. CRP was 0. She was evaluated by [facility] during the prior hospitalization. Her LE weakness gradually improved during that hospital stay and she was walking nearly 100 feet by time of discharge. Studies for myasthenia gravis, autoimmune disease (SUE, etc), and other neurological conditions were dispatched. She had f/u with [facility] shortly after discharge. EMGs of all 4 limbs were being planned. Her weakness progressed over July into August; she ultimately was recently readmitted on 09/02/22. Prior attending, Dr Nur, dispatched additional blood tests for myositis earlier this stay (myositis-specific auto ab's). MRIs of b/l thighs showed significant inflammation of the thigh muscles. 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 This is highly associated with dermatomyositis and underlying malignancy. Thus, her proximal muscle weakness of the legs may be due to anti TIF-1 gamma antibody-positive DM. Rash of face/neck/chest/hands is likely dermatomyositis related. Also with pain in the hands Dysphagia can be a symptom of dermatomyositis as well due to weakness of muscles of swallowing. Recent positive SUE fits with her clinical picture. In light of progressive dysphagia and worsening prox muscle weakness - and overall clinical status continuing to worsen -initiated high-dose steroids -- * Solumedrol 125mg IV BID PM of 09/10/22. Completed -6 days of such. * Was briefly on prednisone; now back to once daily solumedrol. Will need to switch back to prednisone 50 mg daily-further steroid taper needs to be discussed with rheumatology * Completed IVIG x 5 days on 09/12. Will need next round of IVIG again in 4 weeks around 10/10/2022. Increased PPI to twice daily dosing for GI prophy while on high-dose steroids. If malignancy-related dermatomyositis is indeed present is there still underlying active breast ca? CT chest/abd/pelvis does not show obvious recurrence or metastatic disease although there is thickening of the left chest wall in vicinity of prior mastectomy. Recent bone scan was negative for skeletal mets. Need for MRI brain? CT head recently neg for obvious mets. She has not been able to start her immunotherapy for breast cancer given her very poor functional status and multiple hospitalizations Prognosis guarded given the severity of her dermatomyositis and progressive respiratory issues. The above care plan has been reviewed with [facility] Rhe[facility]ology, Dr Jackson, who consulted formally - appreciate his consult & recs. Follow-up with rheumatology as an outpatient Having increased pain in her hands again on 09/21-Increase IV Dilaudid to 0.5 mg for severe pain and continue Dilaudid 0.25 Mg IV for moderate pain -Restarted Cymbalta 30 mg daily for neuropathic pain which will also help with her seemingly depressed mood -Continue prednisone 50 mg daily 09/25--patient has ongoing pain in her back and is conflicted about taking her pain medications as per schedule We will obtain palliative care consult to assist with decisions with pain control as well as addressing goals of therapy again (4) Dermatomyositis with respiratory involvement: Plan: See above Cause of progressive prox muscle weakness, dysphagia, rash, etc. 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 (6) Breast cancer: Plan: left sided stage 3 at diagnosis s/p chemo/XRT last spring/summer, followed by mastectomy 06/[address]arias extensive CT imaging and bone scan without obvious recurrence/mets although most recent CT chest with "thickening" of left chest wall noted Has not been able to start immunotherapy as recommended by oncology Likely will not build to start any treatment for this until her nutritional and performance status are much improved Follow-up with oncology as an outpatient (7) Severe protein-calorie malnutrition: Plan: ongoing, present since spring 2021 in the setting of newly diagnosed breast ca and neoadjuvant chemo/radiation during that time period. s/p PEG tube placement 01/2022. Is on enteral nutrition via PEG (Peptamen 1.5). -Dietary recommends we run tube feedings DURING THE DAY to help satiate her hunger; further, her hypoxia and aspiration events tend to be at night-time leading to CPAP use thus - will run tube feedings during the daytime from 0600 to 2100 Receiving Peptamen 1.5 during these hours Slowly increasing by y 10cc/hr daily to goal of 60cc/hr-up to 40 mL/h today and tolerating H20 flushes q4h and with meds-decrease frequency of free water flushes at 75 mL to every 6 hours given worsening hyponatremia today Patient had videofluoroscopy done today that reveals continued aspiration - will discussed with the therapist regarding strategies to address this (8) Hypertension: Plan: Continue metoprolol Controlled (9) Vitamin B12 deficiency: Plan: dx earlier this fall - level now improved / normal (10) Hyponatremia: Plan: suspected SIADH baseline Na level about 130 and was up to 134 Now back to 130 with increased free water flushes-decreasing free water flushes as above Follow BMP (11) Chronic obstructive pulmonary disease: Plan: suspected emphysematous changes on imaging long standing tobacco history cont bronchodilators but changed to twice daily from 4 times daily cont steroids cont NaCl nebs BID Discontinue chest PT Cough and overall respiratory status improved, weaned to 2 L nasal cannula now since most recent aspiration event when she was requiring high flow nasal cannula (12) Acute metabolic encephalopathy: Plan: resolved back to baseline likely combination of meds (ativan , etc), acute illness (pneumonia, etc) earlier this stay Have discontinued gabapentin, would avoid Ativan (13) Dysphagia: Plan: 2nd to oropharyngeal involvement from dermatomyositis see above re: steroids, IVIG, etc strict NPO except ice chips speech re-eval --next week with video swallow-ordered NPO until that time (14) Candidiasis of mouth and esophagus: Plan: Completed 10-day course of nystatin swish and spit (15) DVT prophylaxis: Plan: lovenox 30mg daily GI prophylaxis-changed IV Protonix to Prevacid per PEG tube Plan Disposition-continued stay The patient says she is "not ready to give up yet" and is hoping that with the high-dose steroids/IVIG, that she will be able to improve in order to complete her treatment for breast cancer Continue PT/OT Patient will need referrals to rehab which she is agreeable to Admission and Anticipated Discharge Date Admission Date: September 02, 2022 Subjective Patient reports some back pain and has requested hydromorphone for pain control. Nausea is improved with change in the timing of Prevacid in relation to the tube feeds No further loose stools today Physical Exam Physical Exam: Constitutional: Patient cachectic vitals as above. HEENT: No scleral injection or discharge. . Neck: Supple without lymphadenopathy or thyromegaly. Trachea midline. Lungs: No wheezing or rhonchi Cardiac: Normal rhythm. No murmurs. . . Abdomen: Soft and nondistended. . No guarding . MSK: No cyanosis or clubbing. Skin: No rashes, warm, dry. Neurologic: Grossly intact cranial nerves. Results & Data Results & Data ([facility]) Vital Signs (Past 12 Hours) Vital Signs Temp Pulse Pulse Resp BP Pulse Ox O2 Del Method 09/25/22 09:36 Nasal Cannula 09/25/22 06:06 64 09/25/22 10:12 36.8 C 75 22 135/70 2 L Nasal Cannula 09/25/22 07:03 36.6 C 66 22 147/72 H 98 Nasal Cannula 09/25/22 02:18 36.8 C 60 20 121/71 97 Nasal Cannula O2 Flow Rate 09/25/22 09:36 2 09/25/22 06:06 09/25/22 10:12 09/25/22 07:03 2 09/25/22 02:18 2 Laboratory Results Short CBC 09/25/22 Range/Units 06:29 WBC 8.14 (4.8-10.8) K/ul Hgb 7.6 L (12.0-16.0) g/dl Hct 23.2 L (34.1-44.9) % Plt Count (130-400) K/uL BMP 09/25/22 06:29 Sodium 130 L Potassium 4.0 Chloride 100 Carbon Dioxide 27 BUN 35 H Creatinine 0.46 L Glucose 81 Calcium 8.2 L PG Care Time/CCT Total # of Minutes Spent Total Time Spent with Patient: Total time spent is greater than 50% in coordination of care (as documented) at patient's floor/unit and/or counseling patient: Coding Level of Care Code 09545 Subseq Hosp Care Lvl 2 Diagnoses Acute respiratory failure with hypoxia J96.01 Bilateral pneumonia J18.9 Myositis M60.9 Dermatomyositis with respiratory involvement M33.91 SUE positive R76.8 Breast cancer C50.912 Breast location: unspecified site of breast Estrogen receptor status: unspecified Patient sex: female Laterality: left Severe protein-calorie malnutrition E43 Hypertension I10 Hypertension type: primary hypertension Vitamin B12 deficiency E53.8 Hyponatremia E87.1 Chronic obstructive pulmonary disease J44.9 Acute metabolic encephalopathy G93.41 Dysphagia R13.10 Candidiasis of mouth and esophagus B37.81; B37.0 DVT prophylaxis Z29.9 (1) Breast cancer Breast location: unspecified site of breast Estrogen receptor status: unspecified Patient sex: female Laterality: left Qualified Code(s): C50.912 - Malignant neoplasm of unspecified site of left female breast (2) Hypertension Hypertension type: primary hypertension Qualified Code(s): I10 - Essential (primary) hypertension
[2022-09-25] MEDS: ONDANSETRON INJ 2 MG/ML 2 ML VIAL IV PRN (14:10)
[2022-09-25] MEDS: clonazePAM 0.25 MG TAB PO PRN ×2 (17:34→22:31)
[2022-09-25] MEDS: ACETAMINOPHEN 10MG/ML Custom 650 MG in EMPTY BAG 0 ML IV PRN (21:29)
[2022-09-26] MEDS: HYDROmorphone INJ 0.5 MG/0.5 ML SYR IV PRN ×4 (03:08→18:44)
[2022-09-26] MEDS: IPRATROPIUM BROMIDE NEB SOLN 0.02% 2.5 ML VIAL INH SCH (05:31)
[2022-09-26] MEDS: LEVALBUTEROL 1.25MG/0.5ML NEB INH SCH (05:32)
[2022-09-26] MEDS: SODIUM CHLOR 7% 4 ML NEB NEB SCH (05:32)
[2022-09-26] MEDS: INSULIN ASPART PER UNIT SC SCH ×4 (06:07→23:21)
[2022-09-26] MEDS: PEPTAMEN 1.5 CAL 1,000 ML BAG PEG SCH (07:23)
[2022-09-26] MEDS: TUBE FEEDING WATER FLUSH PEG SCH ×4 (07:23→23:21)
[2022-09-26 07:28] LABS: Hematocrit (blood only) 23.1 % (34.1-44.9); Hemoglobin 7.6 g/dl (12.0-16.0); Mean Corpuscular Hemoglobin 31.1 pg (25.0-34.0); Mean Corpuscular Hgb Conc 32.9 g/dL (32.0-36.0); Mean Corpuscular Volume 94.7 fL (80.0-100.0); RDW Coefficient of Variation 16.1 % (11.5-14.5); RDW Standard Deviation 55.3 fL (36.4-46.3); Red Blood Count 2.44 M/uL (3.93-5.22); White Blood Count 8.81 K/ul (4.8-10.8)
[2022-09-26 07:35] LABS: BUN Creatinine Ratio 78.7 (10-20); Calcium 8.1 mg/dl (8.5-10.1); Creatinine Clr Calc Pharmacy 64.3 ml/min; Est GFR (African American) 113.6 ml/min; Potassium 4.1 mmol/L (3.5-5.1)
[2022-09-26 07:54] LABS: Basophils # (auto) 0.02 K/uL (0-0.2); Basophils % (auto) 0.2 %; Eosinophils # (auto) 0.23 K/uL (0-0.50); Eosinophils % (auto) 2.6 %; Immature Granulocytes # (auto) 0.26 K/uL (0.00-0.02); Lymphocytes # (auto) 1.23 K/uL (1.2-3.4); Monocytes # (auto) 1.19 K/uL (0.24-0.82); Monocytes % (auto) 13.5 %; Neutrophils # (auto) 5.88 K/uL (1.4-6.5); Neutrophils % (auto) 66.7 %
[2022-09-26] MEDS: LANTUS PER UNIT CHARGE SQ SCH (09:22)
[2022-09-26] MEDS: DULoxetine HCL 30 MG CAP PO SCH (09:32)
[2022-09-26] MEDS: METOPROLOL TARTRATE 25 MG TAB PO SCH ×2 (09:32→20:11)
[2022-09-26] MEDS: CYANOCOBALAMIN (B-12) 500 MCG TABLET PEG SCH (09:32)
[2022-09-26] MEDS: ENOXAPARIN INJ 30 MG/0.3 ML SYR SQ SCH (09:32)
[2022-09-26] MEDS: predniSONE 50 MG TAB PEG SCH (09:33)
[2022-09-26] MEDS ORDERED: SODIUM CHLOR 7% 4 ML NEB NEB PRN (09:50)
[2022-09-26] MEDS: LANSOPRAZOLE 30 MG SOLTAB PEG SCH ×2 (11:30→21:11)
[2022-09-26] MEDS: clonazePAM 0.25 MG TAB PO PRN ×2 (13:28→23:21)
[2022-09-26] MEDS: ONDANSETRON INJ 2 MG/ML 2 ML VIAL IV PRN (13:47)
[2022-09-26] MEDS: HEPARIN 100 UNIT/ML 5ML FLUSH FLUSH PRN (13:48)
--- NOTE | 2022-09-26 14:39 | XRay Report ---
KUB CLINICAL HISTORY: Nausea. FINDINGS: An AP supine abdominal radiograph is compared to abdominal radiographs and CT dated 022. A gastrostomy tube is seen in left upper quadrant. There is no evidence of bowel obstruction. Mi ld to moderate fecal retention is seen throughout the colon. There is residual enteric contrast in di stal small bowel and colon. No evidence of intraperitoneal free air is seen on this supine image. Gerhard cified splenic granulomas are seen in left upper quadrant. Phleboliths are seen in the pelvis. The sk eletal structures are osteopenic and appear intact. IMPRESSION: No acute abnormality is identified. See above. Electronically signed by: Qamar Kohli M.D. 09/26/2022 2:38 PM
--- NOTE | 2022-09-26 20:42 | Hospitalist Progress Note ---
Date of Service September 26, 2022 Assessment & Plan (1) Acute respiratory failure with hypoxia: Plan: resolved 2nd to aspiration pneumonia b/l had 10+ days of IV broad-spectrum abx continue NPO status (2) Bilateral pneumonia: Plan: b/l lower lobe. 2nd aspiration. resolved. (3) Myositis: Plan: During her 06/2022 to 07/2022 prolonged hospitalization she underwent an extensive work-up looking for her b/l LE weakness and back pain. Most of her weakness was of the hip girdle muscles. She underwent MRIs of the spine along with extensive blood work. She was on empiric steroids (Dexamethasone) at that time. CPK was mildly elevated but aldolase was wnl. CRP was 0. She was evaluated by [facility] during the prior hospitalization. Her LE weakness gradually improved during that hospital stay and she was walking nearly 100 feet by time of discharge. Studies for myasthenia gravis, autoimmune disease (SEU, etc), and other neurological conditions were dispatched. She had f/u with [facility] shortly after discharge. EMGs of all 4 limbs were being planned. Her weakness progressed over July into August; she ultimately was recently readmitted on 09/02/22. MRIs of b/l thighs showed significant inflammation of the thigh muscles. She underwent a right thigh muscle bx on 09/06/22 by general surgery; results most c/w dermatomyositis. 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 This is highly associated with dermatomyositis and underlying malignancy. Dysphagia can be a symptom of dermatomyositis as well due to weakness of muscles of swallowing. Recent positive SUE fits with her clinical picture. Therapies thus far -- * Solumedrol 125mg IV BID -- Completed 6 days of such. * Was briefly on prednisone; back to once daily solumedrol; now back to prednisone 09/23/22. Plan 2 weeks of 50mg, then 2 weeks of 40mg, and so forth. * Completed IVIG x 5 days. Will have such again in 4 weeks. Increased PPI to twice daily dosing for GI prophy while on high-dose steroids. If malignancy-related dermatomyositis is indeed present is there still underlying active breast ca? CT chest/abd/pelvis does not show obvious recurrence or metastatic disease although there is thickening of the left chest wall in vicinity of prior mastectomy. Recent bone scan was negative for skeletal mets. Need for MRI brain? CT head recently neg for obvious mets. Prognosis remains guarded. Appreciate Dr Jackson, rheum consult. (4) Dermatomyositis with respiratory involvement: Plan: see #3 above cause of progressive prox muscle weakness, dysphagia, rash, etc. rheum consult by Dr Jackson appreciated rash component has resolved weakness modestly better in comparison to 1-2 weeks ago unfortunately dysphagia remains based on most recent video swallow (5) SUE positive: Plan: see #3 above (6) Breast cancer: Plan: left sided stage 3 at diagnosis s/p chemo/XRT last spring/summer, followed by mastectomy 06/[address]arias extensive CT imaging and bone scan without obvious recurrence/mets although most recent CT chest with "thickening" of left chest wall noted see discussion above (7) Severe protein-calorie malnutrition: Plan: ongoing, present since spring 2021 in the setting of newly diagnosed breast ca and neoadjuvant chemo/radiation during that time period. s/p PEG tube placement 01/2022. cont peptamen 1.5 60cc/hr during daylight hours. 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 baseline Na level about 130 Na levels remain acceptable BMP am (11) Chronic obstructive pulmonary disease: Plan: stable nebs made prn saline nebs made prn (12) Acute metabolic encephalopathy: Plan: resolved (13) Dysphagia: Plan: 2nd to oropharyngeal involvement from dermatomyositis see above re: steroids, IVIG, etc strict NPO recent video swallow test results reviewed (14) DVT prophylaxis: Plan: lovenox 30mg daily (15) Hypomagnesemia: Plan: replaced resolved check level in am for stability (16) Candidiasis of mouth and esophagus: Plan: nystatin 5cc qid - resolved (17) Volume overload: Plan: resolved Plan updated pt's daughter at bedside today cont PT/OT diarrhea - check c.diff; if negative then loperamide prn anemia - check Fe studies in am cbc in am back pain - if this persists reimage to ensure no recurrence of breast ca Admission and Anticipated Discharge Date Admission Date: September 02, 2022 Subjective patient reports ongoing poor sleep and would like something for such c/o low back pain in the midline - started about 2 weeks ago this pain is different than previous episodes of paraspinal pain in the back also with copious amounts of diarrhea today tolerating tube feedings at 60cc/hr is a little "down" today daughter at bedside Review of Systems Review of Systems: gen - fatigue, weak musculo - thinks arm/leg weakness is slightly better pulm - no dyspnea GI - no pain Physical Exam Physical Exam: gen - comfortable, no distress, cachectic, NAD today mouth - MMM voice - clear; no dysarthria neck - no JVD heart - RRR, s1 s2, no murmur lungs - CTA b/l; decreased BS bases chest - a-port clean abd - soft NT ND BS+; PEG tube site clean ext - no edema, pulses 2+ b/l skin - erythematous rash over face, neck, chest, and dorsum hands - resolved psych - a/o x 3, a little sleepy Results & Data Results & Data ([facility]) Vital Signs (Past 12 Hours) Vital Signs Temp Pulse Resp BP Pulse Ox O2 Del Method O2 Flow Rate 09/26/22 19:00 83 16 123/72 96 Room Air 2 09/26/22 16:40 36.9 C 84 19 151/78 H 92 Room Air 09/26/22 12:00 36.5 C 87 18 133/67 97 Room Air Laboratory Results Laboratory Results - last 24 hr 09/26/22 09/26/22 09/26/22 06:39 06:39 06:39 WBC 8.81 RBC 2.44 L Hgb 7.6 L Hct 23.1 L MCV 94.7 MCH 31.1 MCHC 32.9 RDW Std Deviation 55.3 H RDW Coeff of Emil 16.1 H Plt Count MPV Immature Gran % (Auto) 3.0 Neut % (Auto) 66.7 Lymph % (Auto) 14.0 Sullivan % (Auto) 13.5 Eos % (Auto) 2.6 Baso % (Auto) 0.2 Neut # (Auto) 5.88 Lymph # (Auto) 1.23 Sullivan # (Auto) 1.19 H Eos # (Auto) 0.23 Baso # (Auto) 0.02 Immature Gran # (Auto) 0.26 H Plt Count ,Citrate 358 Sodium 131 L Potassium 4.1 Chloride 99 Carbon Dioxide 27 Anion Gap 5 BUN 37 H Creatinine 0.47 L Est Cr Clr Drug Dosing 64.3 Est GFR ( Amer) 113.6 Est GFR (Non-Af Amer) 98.0 BUN/Creatinine Ratio 78.7 H Glucose 84 Calcium 8.1 L PG Care Time/CCT Total # of Minutes Spent Total Time Spent with Patient: Total time spent is greater than 50% in coordination of care (as documented) at patient's floor/unit and/or counseling patient: Coding Level of Care Code 14892 SUB INP/OBS CARE 3/50MIN Diagnoses Acute respiratory failure with hypoxia J96.01 Bilateral pneumonia J18.9 Myositis M60.9 Dermatomyositis with respiratory involvement M33.91 SUE positive R76.8 Breast cancer C50.912 Breast location: unspecified site of breast Estrogen receptor status: unspecified Laterality: left Patient sex: female Severe protein-calorie malnutrition E43 Hypertension I10 Hypertension type: primary hypertension Vitamin B12 deficiency E53.8 Hyponatremia E87.1 Chronic obstructive pulmonary disease J44.9 Acute metabolic encephalopathy G93.41 Dysphagia R13.10 DVT prophylaxis Z29.9 Hypomagnesemia E83.42 Candidiasis of mouth and esophagus B37.81; B37.0 Volume overload E87.70 (1) Breast cancer Breast location: unspecified site of breast Estrogen receptor status: unspecified Laterality: left Patient sex: female Qualified Code(s): C50.912 - Malignant neoplasm of unspecified site of left female breast (2) Hypertension Hypertension type: primary hypertension Qualified Code(s): I10 - Essential (primary) hypertension
[2022-09-26] MEDS: HYDROmorphone HCL 2 MG TAB PO SCH (21:10)
[2022-09-27] MEDS: ACETAMINOPHEN 10MG/ML Custom 650 MG in EMPTY BAG 0 ML IV PRN (00:39)
[2022-09-27] MEDS: HYDROmorphone INJ 0.5 MG/0.5 ML SYR IV PRN ×4 (02:10→15:44)
[2022-09-27] MEDS: INSULIN ASPART PER UNIT SC SCH ×3 (06:03→17:29)
[2022-09-27] MEDS: PEPTAMEN 1.5 CAL 1,000 ML BAG PEG SCH (06:18)
[2022-09-27] MEDS: TUBE FEEDING WATER FLUSH PEG SCH ×3 (06:19→17:30)
[2022-09-27 07:28] LABS: Hematocrit (blood only) 24.3 % (34.1-44.9); Hemoglobin 8.2 g/dl (12.0-16.0); Mean Corpuscular Hemoglobin 32.2 pg (25.0-34.0); Mean Corpuscular Hgb Conc 33.7 g/dL (32.0-36.0); Mean Corpuscular Volume 95.3 fL (80.0-100.0); RDW Coefficient of Variation 15.9 % (11.5-14.5); RDW Standard Deviation 55.5 fL (36.4-46.3); Red Blood Count 2.55 M/uL (3.93-5.22); White Blood Count 9.89 K/ul (4.8-10.8)
[2022-09-27 07:49] LABS: BUN Creatinine Ratio 78.3 (10-20); Calcium 8.2 mg/dl (8.5-10.1); Creatinine Clr Calc Pharmacy 67.2 ml/min; Est GFR (African American) 114.4 ml/min; Est GFR (Non-African American) 98.7 ml/min; Magnesium 1.5 mg/dl (1.7-2.4); Potassium 4.3 mmol/L (3.5-5.1)
[2022-09-27] MEDS: METOPROLOL TARTRATE 25 MG TAB PO SCH ×2 (09:45→20:04)
[2022-09-27] MEDS: LOPERAMIDE LIQUID 120 ML BOTTLE PEG PRN (09:45)
[2022-09-27] MEDS: predniSONE 50 MG TAB PEG SCH (09:46)
[2022-09-27] MEDS: ENOXAPARIN INJ 30 MG/0.3 ML SYR SQ SCH (09:46)
[2022-09-27] MEDS: LANTUS PER UNIT CHARGE SQ SCH (09:46)
[2022-09-27] MEDS: DULoxetine HCL 30 MG CAP PO SCH (09:46)
[2022-09-27] MEDS: CYANOCOBALAMIN (B-12) 500 MCG TABLET PEG SCH (09:46)
[2022-09-27] MEDS: LANSOPRAZOLE 30 MG SOLTAB PEG SCH ×2 (09:46→20:03)
[2022-09-27] MEDS: MAGNESIUM SULFATE / D5W 1 GM/100 ML BAG IV SCH ×2 (10:10→11:54)
[2022-09-27] MEDS: clonazePAM 0.25 MG TAB PO PRN (13:25)
[2022-09-27] MEDS: HEPARIN 100 UNIT/ML 5ML FLUSH FLUSH PRN (15:44)
--- NOTE | 2022-09-27 17:46 | Palliative Care Progress Note ---
Date of Service September 27, 2022 Assessment & Plan (1) Pain: Plan: Discussed again concern about using pain medication as an escape. She says again today that she wants to continue to fight. We discussed concern that sleeping more with medication is interfering with her ability to do PT. She does indeed have pain and we discussed routine tylenol dosing with prn hydromorphone only if that is in effective. She agrees to this. (2) Anxiety: Plan: She does get relief from clonazepam. Continue prn. (3) Palliative care encounter: Plan: Met with Hayley, along with her daughter, Gilda to review goals of care. It is perfectly understandable that she feels overwhelmed and frustrated with her illness and we want to help with her symptoms and support her goals. We discussed concerns as above that medication may impede her progress for rehab it that is her goal. She consistently says that she wants to continue to fight. Shahram maria discussed idea that sometimes we fight for different things, maybe more time, more strength, better comfort and encouraged her to consider what is most important to her. She is going to consider this and discuss further with Gilda over the next day or so. We will follow. Admission and Anticipated Discharge Date Admission Date: September 02, 2022 Subjective Complains more of back pain today. Hand pain is better. She has had prn dilaudid for total of approximately 50 OME today. Per RN, asking for medication to "go to sleep and not wake up". Review of Systems Review of Systems: ESAS Pain 1/3 Dyspnea 0/3 Anxiety 2/3 Fatigue 3/3 Drowsiness 1/3 PPS 30% Physical Exam Constitutional: + cachectic Respiratory: normal respiratory effort; no labored breathing Cardiovascular: Rate/Rhythm: regular rate and regular rhythm Musculoskeletal: Extremities: + muscle atrophy Neurologic: Speech / Cognition: normal cognition Results & Data ([facility]) Vital Signs (Past 12 Hours) Vital Signs Temp Pulse Resp BP Pulse Ox O2 Del Method 09/27/22 08:00 Room Air 09/27/22 08:12 98.2 F 78 18 143/71 H 96 Room Air PG Care Time/CCT Total # of Minutes Spent Total Time Spent: 57 Total Time Spent with Patient: Total time spent is greater than 50% in coordination of care (as documented) at patient's floor/unit and/or counseling patient:[id number] goals of care, symptom management, patient education and support Coding Level of Care Code 61083 SUB INP/OBS CARE 50MIN Diagnoses Pain R52 Anxiety F41.9 Palliative care encounter Z51.5
[2022-09-27] MEDS ORDERED: ACETAMINOPHEN 1000 MG/100 ML IV IV ONE (19:54)
[2022-09-27] MEDS: ACETAMINOPHEN 1,000 MG/100 ML VIAL IV SCH (19:58)
[2022-09-27] MEDS: HYDROmorphone HCL 2 MG TAB PO SCH (20:02)
--- NOTE | 2022-09-27 21:30 | Hospitalist Progress Note ---
Date of Service September 27, 2022 Assessment & Plan (1) Acute respiratory failure with hypoxia: Plan: resolved 2nd to aspiration pneumonia b/l had 10+ days of IV broad-spectrum abx continue NPO status (2) Bilateral pneumonia: Plan: b/l lower lobe. 2nd aspiration. resolved. (3) Myositis: Plan: During her 06/2022 to 07/2022 prolonged hospitalization she underwent an extensive work-up looking for her b/l LE weakness and back pain. Most of her weakness was of the hip girdle muscles. She underwent MRIs of the spine along with extensive blood work. She was on empiric steroids (Dexamethasone) at that time. CPK was mildly elevated but aldolase was wnl. CRP was 0. She was evaluated by [facility] during the prior hospitalization. Her LE weakness gradually improved during that hospital stay and she was walking nearly 100 feet by time of discharge. Studies for myasthenia gravis, autoimmune disease (SUE, etc), and other neurological conditions were dispatched. She had f/u with [facility] shortly after discharge. EMGs of all 4 limbs were being planned. Her weakness progressed over July into August; she ultimately was recently readmitted on 09/02/22. MRIs of b/l thighs showed significant inflammation of the thigh muscles. She underwent a right thigh muscle bx on 09/06/22 by general surgery; results most c/w dermatomyositis. 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 This is also highly associated with dermatomyositis and underlying malignancy. Dysphagia can be a symptom of dermatomyositis as well due to weakness of muscles of swallowing. Recent positive SUE fits with her clinical picture. Therapies thus far -- * Solumedrol 125mg IV BID -- Completed 6 days of such. * Was briefly on prednisone; back to once daily solumedrol; now back to PO prednisone 09/23/22. Plan 2 weeks of 50mg, then 2 weeks of 40mg, and so forth. * Completed IVIG x 5 days. Will have such again in 4 weeks. Increased PPI to twice daily dosing for GI prophy while on high-dose steroids. If malignancy-related dermatomyositis is indeed present is there still underlying active breast ca? CT chest/abd/pelvis does not show obvious recurrence or metastatic disease although there is thickening of the left chest wall in vicinity of prior mastectomy. Recent bone scan was negative for skeletal mets. Will talk with patient about obtaining MRI brain to complete her w/u. Prognosis remains guarded. Appreciate Dr Jackson, rheum consult. of note - patient & daughter met with Dr Cobb from palliative care today patient wishes to continue current care plan does not want hospice at this time appreciate Dr Cobb's assistance (4) Dermatomyositis with respiratory involvement: Plan: see #3 above cause of progressive prox muscle weakness, dysphagia, rash, etc. rheum consult by Dr Jackson appreciated rash component has resolved weakness modestly better in comparison to 1-2 weeks ago unfortunately dysphagia remains based on most recent video swallow (5) SUE positive: Plan: see #3 above (6) Breast cancer: Plan: left sided stage 3 at diagnosis s/p chemo/XRT last spring/summer, followed by mastectomy 06/[address]arias extensive CT imaging and bone scan without obvious recurrence/mets although most recent CT chest with "thickening" of left chest wall noted see discussion above (7) Severe protein-calorie malnutrition: Plan: ongoing, present since spring 2021 in the setting of newly diagnosed breast ca and neoadjuvant chemo/radiation during that time period. s/p PEG tube placement 01/2022. cont peptamen 1.5 60cc/hr during daylight hours. 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 baseline Na level about 130 Na levels remain stable BMP am (11) Chronic obstructive pulmonary disease: Plan: stable nebs made prn saline nebs made prn O2 sats wnl lungs clear (12) Acute metabolic encephalopathy: Plan: resolved (13) Dysphagia: Plan: 2nd to oropharyngeal involvement from dermatomyositis see above re: steroids, IVIG, etc strict NPO recent video swallow test results reviewed (14) DVT prophylaxis: Plan: lovenox 30mg daily (15) Hypomagnesemia: Plan: low again today (1.5) -- give 2 grams of mag sulfate x 1 repeat level in am (16) Candidiasis of mouth and esophagus: Plan: nystatin 5cc qid - resolved (17) Volume overload: Plan: resolved Plan updated pt's daughter at bedside yesterday cont PT/OT diarrhea - checked c.diff -- negative; may use loperamide prn anemia - Fe studies most c/w ACD back pain - if this persists consider re-imaging to ensure no recurrence of breast ca if electrolytes are stable tomorrow and tele is normal will d/c tele Admission and Anticipated Discharge Date Admission Date: September 02, 2022 Subjective patient without any new complaints she is "tired" - wants to sleep better at night - but staff report she sleeps off/on throughout the day she reports the dilaudid given via PEG yesterday pm at bedtime did help her back pain and in turn helped her sleep she denies any changes in her cough no dyspnea diarrhea improved overall "ok" day - she did meet with palliative and wants to "continue fighting" Review of Systems Review of Systems: gen - fatigue cv - no cp pulm - no dyspnea GI - no abd pain musculo - no change in proximal muscle weakness Physical Exam Physical Exam: gen - comfortable, no distress, cachectic, NAD neck - no JVD heart - RRR, s1 s2, no murmur lungs - CTA b/l; decreased breath sounds right base chest - a-port clean abd - soft NT ND BS+ ext - no edema, pulses 2+ b/l Results & Data Results & Data ([facility]) Vital Signs (Past 12 Hours) Vital Signs Temp Pulse Resp BP Pulse Ox O2 Del Method 09/27/22 19:00 36.6 C 77 18 112/62 95 Room Air Laboratory Results Laboratory Results - last 24 hr 09/26/22 09/27/22 09/27/22 Unknown 06:28 06:28 WBC 9.89 RBC 2.55 L Hgb 8.2 L Hct 24.3 L MCV 95.3 MCH 32.2 MCHC 33.7 RDW Std Deviation 55.5 H RDW Coeff of Emil 15.9 H Plt Count MPV Plt Count ,Citrate Sodium 129 L Potassium 4.3 Chloride 96 L Carbon Dioxide 28 Anion Gap 5 BUN 36 H Creatinine 0.46 L Est Cr Clr Drug Dosing 67.2 Est GFR ( Amer) 114.4 Est GFR (Non-Af Amer) 98.7 BUN/Creatinine Ratio 78.3 H Glucose 86 Calcium 8.2 L Magnesium 1.5 L Iron 101 TIBC 210 L Unsaturated IBC 109 L Transferrin % Sat 48 Ferritin 1398.0 H Stl C. diff Tox B Gene Negative Cdiff Gene 09/27/22 06:28 WBC RBC Hgb Hct MCV MCH MCHC RDW Std Deviation RDW Coeff of Emil Plt Count MPV Plt Count ,Citrate 382 Sodium Potassium Chloride Carbon Dioxide Anion Gap BUN Creatinine Est Cr Clr Drug Dosing Est GFR ( Amer) Est GFR (Non-Af Amer) BUN/Creatinine Ratio Glucose Calcium Magnesium Iron TIBC Unsaturated IBC Transferrin % Sat Ferritin Stl C. diff Tox B Gene PG Care Time/CCT Total # of Minutes Spent Total Time Spent with Patient: Total time spent is greater than 50% in coordination of care (as documented) at patient's floor/unit and/or counseling patient: Coding Level of Care Code 56386 SUB INP/OBS CARE 2/35MIN Diagnoses Acute respiratory failure with hypoxia J96.01 Bilateral pneumonia J18.9 Myositis M60.9 Dermatomyositis with respiratory involvement M33.91 SUE positive R76.8 Breast cancer C50.912 Breast location: unspecified site of breast Estrogen receptor status: unspecified Laterality: left Patient sex: female Severe protein-calorie malnutrition E43 Hypertension I10 Hypertension type: primary hypertension Vitamin B12 deficiency E53.8 Hyponatremia E87.1 Chronic obstructive pulmonary disease J44.9 Acute metabolic encephalopathy G93.41 Dysphagia R13.10 DVT prophylaxis Z29.9 Hypomagnesemia E83.42 Candidiasis of mouth and esophagus B37.81; B37.0 Volume overload E87.70 (1) Breast cancer Breast location: unspecified site of breast Estrogen receptor status: unspecified Laterality: left Patient sex: female Qualified Code(s): C50.912 - Malignant neoplasm of unspecified site of left female breast (2) Hypertension Hypertension type: primary hypertension Qualified Code(s): I10 - Essential (primary) hypertension
[2022-09-28] MEDS: TUBE FEEDING WATER FLUSH PEG SCH ×4 (00:03→17:47)
[2022-09-28] MEDS: clonazePAM 0.25 MG TAB PO PRN ×2 (00:35→13:01)
[2022-09-28] MEDS: ACETAMINOPHEN 1,000 MG/100 ML VIAL IV SCH ×2 (01:14→10:50)
[2022-09-28] MEDS ORDERED: clonazePAM 0.25 MG TAB PO STA (04:25)
[2022-09-28] MEDS: PEPTAMEN 1.5 CAL 1,000 ML BAG PEG SCH (04:57)
[2022-09-28] MEDS: INSULIN ASPART PER UNIT SC SCH ×4 (05:37→18:12)
[2022-09-28] MEDS: LOPERAMIDE LIQUID 120 ML BOTTLE PEG PRN ×2 (06:35→10:38)
[2022-09-28 07:25] LABS: Hematocrit (blood only) 24.3 % (34.1-44.9); Hemoglobin 8.1 g/dl (12.0-16.0)
[2022-09-28 07:48] LABS: BUN Creatinine Ratio 82.6 (10-20); Calcium 8.2 mg/dl (8.5-10.1); Est GFR (African American) 114.4 ml/min; Est GFR (Non-African American) 98.7 ml/min; Magnesium 1.8 mg/dl (1.7-2.4); Potassium 4.1 mmol/L (3.5-5.1)
[2022-09-28] MEDS: CYANOCOBALAMIN (B-12) 500 MCG TABLET PEG SCH (08:34)
[2022-09-28] MEDS: predniSONE 50 MG TAB PEG SCH (08:34)
[2022-09-28] MEDS: LANSOPRAZOLE 30 MG SOLTAB PEG SCH ×2 (08:34→22:18)
[2022-09-28] MEDS: DULoxetine HCL 30 MG CAP PO SCH (08:34)
[2022-09-28] MEDS: METOPROLOL TARTRATE 25 MG TAB PO SCH ×2 (08:35→22:19)
[2022-09-28] MEDS: ENOXAPARIN INJ 30 MG/0.3 ML SYR SQ SCH (08:35)
[2022-09-28] MEDS: LANTUS PER UNIT CHARGE SQ SCH (09:45)
[2022-09-28] MEDS: ONDANSETRON INJ 2 MG/ML 2 ML VIAL IV PRN (11:29)
[2022-09-28] MEDS: busPIRone 5 MG TAB PEG SCH ×2 (14:24→22:18)
--- NOTE | 2022-09-28 15:29 | Palliative Care Progress Note ---
Date of Service September 28, 2022 Assessment & Plan (1) Pain: Plan: She continues to hydromorphone for pain in addition to IV tylenol. She has had a total of 40mg OME in last 24 hours. Per RN, she has requested pain medication, "to sleep". IV tylenol was started to avoid sedating medications so she can participate in PT. She tells me that she does not want to do PT. Will d/c tylenol and continue prn hydromorphone. (2) Anxiety: Plan: We have discussed on multiple occasions, using pain medication for relief of pain rather than as an escape. She has tolerated clonazepam at low dose which could be increased. (3) Palliative care encounter: Plan: Mrs. Benson tells me that she feels tired and humiliated with her illness and dependence on others for her care. She recognizes that her prognosis is poor and is considering shift of care to comfort focus. She asked me what that would look like and we discussed adjusting medications to focus only on those that will relieve symptoms and improve her comfort. She asked about being able to "just sleep". I explained to her that we would not use medications to hasten her but would do what we could to relieve her symptoms of pain and anxiety. She expressed concern that her daughter would be upset with her for making this decision and asked if she was making the right decision. I shared with her parts of conversation that Gilda and I have had and assured her that Gilda would support whatever she wanted to do. I encouraged her to talk with Gilda about her thoughts and concerns. Notified Dr. Hernandez of our conversation. Palliative care will follow. Admission and Anticipated Discharge Date Admission Date: September 02, 2022 Subjective Stopped to see Mrs. Benson who was talking with PT. She asked me to talk to her about comfort care. Review of Systems Review of Systems: ESAS Pain 0/3 Dyspnea 0/3 Anxiety 2/3 Fatigue 2/3 Nausea 0/3 PPS 30% Physical Exam Constitutional: + cachectic and + frail appearing Respiratory: normal respiratory effort; no labored breathing Gastrointestinal (Abdomen): PEG tube Musculoskeletal: Extremities: + muscle atrophy Skin: warm and dry Neurologic: Speech / Cognition: normal cognition Results & Data ([facility]) Vital Signs (Past 12 Hours) Vital Signs Temp Pulse Pulse Resp BP Pulse Ox O2 Del Method 09/28/22 15:07 95 H 09/28/22 08:00 85 09/28/22 08:00 Room Air 09/28/22 11:48 98.4 F 86 18 137/73 94 Room Air 09/28/22 07:28 97.7 F 85 19 155/76 H 95 Room Air PG Care Time/CCT Total # of Minutes Spent Total Time Spent: 30 Total Time Spent with Patient: Total time spent is greater than 50% in coordination of care (as documented) at patient's floor/unit and/or counseling patient: [id number] symptom management, goals of care, prognosis, patient education and support Coding Level of Care Code 41928 SUB INP/OBS CARE 2/35MIN Diagnoses Pain R52 Anxiety F41.9 Palliative care encounter Z51.5
--- NOTE | 2022-09-28 20:12 | Hospitalist Progress Note ---
Date of Service September 28, 2022 Assessment & Plan (1) Acute respiratory failure with hypoxia: Plan: resolved 2nd to aspiration pneumonia b/l had 10+ days of IV broad-spectrum abx continue NPO status (2) Bilateral pneumonia: Plan: b/l lower lobe. 2nd aspiration. resolved. (3) Myositis: Plan: During her 06/2022 to 07/2022 prolonged hospitalization she underwent an extensive work-up looking for her b/l LE weakness and back pain. Most of her weakness was of the hip girdle muscles. She underwent MRIs of the spine along with extensive blood work. She was on empiric steroids (Dexamethasone) at that time. CPK was mildly elevated but aldolase was wnl. CRP was 0. She was evaluated by [facility] during the prior hospitalization. Her LE weakness gradually improved during that hospital stay and she was walking nearly 100 feet by time of discharge. Studies for myasthenia gravis, autoimmune disease (SUE, etc), and other neurological conditions were dispatched. She had f/u with [facility] shortly after discharge. EMGs of all 4 limbs were being planned. Her weakness progressed over July into August; she ultimately was recently readmitted on 09/02/22. MRIs of b/l thighs showed significant inflammation of the thigh muscles. She underwent a right thigh muscle bx on 09/06/22 by general surgery; results most c/w dermatomyositis. 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 This is also highly associated with dermatomyositis and underlying malignancy. Dysphagia can be a symptom of dermatomyositis as well due to weakness of muscles of swallowing. Recent positive SUE fits with her clinical picture. Therapies thus far -- * Solumedrol 125mg IV BID -- Completed 6 days of such. * Was briefly on prednisone; back to once daily solumedrol; now back to PO prednisone 09/23/22. Plan 2 weeks of 50mg, then 2 weeks of 40mg, and so forth. * Completed IVIG x 5 days. Will have such again in 4 weeks. Increased PPI to twice daily dosing for GI prophy while on high-dose steroids. If malignancy-related dermatomyositis is indeed present is there still underlying active breast ca? CT chest/abd/pelvis does not show obvious recurrence or metastatic disease although there is thickening of the left chest wall in vicinity of prior mastectomy. Recent bone scan was negative for skeletal mets. Will talk with patient about obtaining MRI brain to complete her w/u. Prognosis remains guarded. Appreciate Dr Jackson, rheum consult. -- Of note - patient & daughter met with Dr Cobb from palliative care today as well as yesterday. Mrs Benson continues to struggle with what she wants to do as noted in the subjective portion of this note. We discussed the power of prayer and asking for her higher power to help guide her decision making and for strength during this difficult time. Encouraged her to continue discussing her options with her daughter & family. Sleep is her biggest complaint, and she seems to be falling into a depression - will start remeron 7.5mg HS. d/c tele (normal for 2+ weeks); move to med/surg. She will continue to think about her care options. (4) Dermatomyositis with respiratory involvement: Plan: see #3 above cause of progressive prox muscle weakness, dysphagia, rash, etc. rheum consult by Dr Jackson appreciated rash component has resolved weakness modestly better in comparison to 1-2 weeks ago unfortunately dysphagia remains based on most recent video swallow (5) SUE positive: Plan: see #3 above (6) Breast cancer: Plan: left sided stage 3 at diagnosis s/p chemo/XRT last spring/summer, followed by mastectomy 06/[address]arias extensive CT imaging and bone scan without obvious recurrence/mets although most recent CT chest with "thickening" of left chest wall noted see discussion above (7) Severe protein-calorie malnutrition: Plan: ongoing, present since spring 2021 in the setting of newly diagnosed breast ca and neoadjuvant chemo/radiation during that time period. s/p PEG tube placement 01/2022. cont peptamen 1.5 60cc/hr during daylight hours. 60cc/hr is goal rate. 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 baseline Na level about 130 Na levels remain stable and acceptable will skip am labs tomorrow (11) Chronic obstructive pulmonary disease: Plan: stable nebs made prn saline nebs made prn O2 sats wnl lungs clear (12) Acute metabolic encephalopathy: Plan: resolved (13) Dysphagia: Plan: 2nd to oropharyngeal involvement from dermatomyositis see above re: steroids, IVIG, etc strict NPO unless she decides to transition to comfort care - at that time would liberalize her PO intake recent video swallow test results reviewed (14) DVT prophylaxis: Plan: lovenox 30mg daily (15) Hypomagnesemia: Plan: repleted resolved (16) Candidiasis of mouth and esophagus: Plan: nystatin 5cc qid - resolved (17) Volume overload: Plan: resolved Plan updated pt's daughter extensively by phone today cont PT/OT as tolerated diarrhea - checked c.diff -- negative; schedule loperamide BID via PEG anemia - Fe studies most c/w ACD back pain - no complaint of this today insomnia, adjustment issues, depression -- start remeron 7.5mg HS d/c tele move to med/surg today Admission and Anticipated Discharge Date Admission Date: September 02, 2022 Subjective patient had met with palliative care (Dr Cobb) earlier this afternoon they had discussed goals of care there was discussion about moving towards comfort care but patient still uncertain during my rounds she wanted to talk again about goals of care we discussed 3 options moving forward - continuing current care plan (tube feeds, steroids, etc) indefinitely with goal of rehab and then home; "middle ground" approach -- continuing current care plan and if no progress in a week (or however long she wanted) then transition to hospice/comfort; vs transitioning to comfort care now she doesn't want to "let down" her daughter by going right to hospice/comfort with that said she hates not "being able to do what I would normally do" (ie self-care, etc) she was understandably very tearful no new complaints she continues to have insomnia and fragmented sleep; asks for something for this Review of Systems Review of Systems: gen - weak, fatigue cv - no orthopnea, no cp pulm - no dyspnea; mild cough GI - no pain; ongoing nausea, worse first thing in am; ongoing diarrhea - dean in place musculo - ongoing weakness of arms/legs - no change from prior Physical Exam Physical Exam: gen - comfortable, no distress, cachectic, NAD; very tearful today neck - no JVD mouth - MMM, no obvious thrush heart - RRR, s1 s2, no murmur lungs - CTA b/l; decreased breath sounds right base (unchanged) chest - a-port clean abd - soft NT ND BS+ ext - no edema, pulses 2+ b/l psych - depressed; a/o x 3 Results & Data Results & Data ([facility]) Vital Signs (Past 12 Hours) Vital Signs Temp Pulse Pulse Resp BP Pulse Ox O2 Del Method 09/28/22 18:41 36.3 C L 84 18 118/69 96 Room Air 09/28/22 15:22 36.9 C 94 H 19 117/67 95 Room Air 09/28/22 15:07 95 H 09/28/22 11:48 36.9 C 86 18 137/73 94 Room Air Laboratory Results Laboratory Results - last 24 hr 09/27/22 09/28/22 09/28/22 23:56 05:29 06:49 Hgb 8.1 L Hct 24.3 L Sodium Potassium Chloride Carbon Dioxide Anion Gap BUN Creatinine Est Cr Clr Drug Dosing Est GFR ( Amer) Est GFR (Non-Af Amer) BUN/Creatinine Ratio Glucose POC Glucose 185 H 107 H Calcium Magnesium 09/28/22 09/28/22 06:49 11:50 Hgb Hct Sodium 128 L Potassium 4.1 Chloride 96 L Carbon Dioxide 26 Anion Gap 6 BUN 38 H Creatinine 0.46 L Est Cr Clr Drug Dosing 61.0 Est GFR ( Amer) 114.4 Est GFR (Non-Af Amer) 98.7 BUN/Creatinine Ratio 82.6 H Glucose 115 H POC Glucose 140 H Calcium 8.2 L Magnesium 1.8 PG Care Time/CCT Total # of Minutes Spent Total Time Spent with Patient: Total time spent is greater than 50% in coordination of care (as documented) at patient's floor/unit and/or counseling patient: Coding Level of Care Code 17311 SUB INP/OBS CARE 3/50MIN Diagnoses Acute respiratory failure with hypoxia J96.01 Bilateral pneumonia J18.9 Myositis M60.9 Dermatomyositis with respiratory involvement M33.91 SUE positive R76.8 Breast cancer C50.912 Breast location: unspecified site of breast Estrogen receptor status: unspecified Laterality: left Patient sex: female Severe protein-calorie malnutrition E43 Hypertension I10 Hypertension type: primary hypertension Vitamin B12 deficiency E53.8 Hyponatremia E87.1 Chronic obstructive pulmonary disease J44.9 Acute metabolic encephalopathy G93.41 Dysphagia R13.10 DVT prophylaxis Z29.9 Hypomagnesemia E83.42 Candidiasis of mouth and esophagus B37.81; B37.0 Volume overload E87.70 (1) Breast cancer Breast location: unspecified site of breast Estrogen receptor status: unspecified Laterality: left Patient sex: female Qualified Code(s): C50.912 - Malignant neoplasm of unspecified site of left female breast (2) Hypertension Hypertension type: primary hypertension Qualified Code(s): I10 - Essential (primary) hypertension
[2022-09-28] MEDS: LOPERAMIDE LIQUID 120 ML BOTTLE PEG SCH (21:43)
[2022-09-28] MEDS: MIRTAZAPINE SOLTAB 15 MG PO SCH (21:44)
[2022-09-28] MEDS: HYDROmorphone INJ 0.5 MG/0.5 ML SYR IV PRN (23:46)
[2022-09-29] MEDS: TUBE FEEDING WATER FLUSH PEG SCH ×5 (00:15→23:46)
[2022-09-29 00:29] LABS: Appearance Urine Cloudy (Clear); Bacteria Urine Automated 2+ (Negative); Bilirubin Urine Negative (Negative); Blood Urine Trace (Negative); Color Urine Yellow; Epithelial Cell Urine Auto 0-5 /lpf (0-5); Glucose Urine UA Negative (Negative); Ketones Urine Negative (Negative); Leukocyte Esterase Urine 3+ (Negative); Nitrite Urine Negative (Negative); RBC Urine Automated 0-4 /hpf (0-4); Specific Gravity Urine 1.004 (1.000-1.030); Urobilinogen Urine Negative (Negative); WBC Urine Automated >30 /hpf (0-5)
[2022-09-29 00:45] LABS: Protein Urine Trace (Negative)
[2022-09-29 01:22] LABS: Calcium Oxalate Crystals Urine Present (None Prsent)
[2022-09-29] MEDS: HYDROmorphone INJ 0.5 MG/0.5 ML SYR IV PRN ×4 (05:17→22:46)
[2022-09-29] MEDS: PEPTAMEN 1.5 CAL 1,000 ML BAG PEG SCH (05:21)
[2022-09-29] MEDS: ACETAMINOPHEN 10MG/ML Custom 650 MG in EMPTY BAG 0 ML IV PRN (09:22)
[2022-09-29] MEDS: DULoxetine HCL 30 MG CAP PO SCH (09:27)
[2022-09-29] MEDS: METOPROLOL TARTRATE 25 MG TAB PO SCH ×2 (10:33→21:08)
[2022-09-29] MEDS: LANSOPRAZOLE 30 MG SOLTAB PEG SCH ×2 (10:33→21:08)
[2022-09-29] MEDS: busPIRone 5 MG TAB PEG SCH ×3 (10:34→21:08)
[2022-09-29] MEDS: predniSONE 50 MG TAB PEG SCH (10:34)
[2022-09-29] MEDS: CYANOCOBALAMIN (B-12) 500 MCG TABLET PEG SCH (10:35)
[2022-09-29] MEDS: ENOXAPARIN INJ 30 MG/0.3 ML SYR SQ SCH (10:35)
[2022-09-29] MEDS: LOPERAMIDE LIQUID 120 ML BOTTLE PEG SCH ×2 (10:36→21:02)
--- NOTE | 2022-09-29 12:15 | Hospitalist Progress Note ---
Date of Service September 29, 2022 Assessment & Plan (1) Myositis: Plan: During her 06/2022 to 07/2022 prolonged hospitalization she underwent an extensive work-up looking for her b/l LE weakness and back pain. Most of her weakness was of the hip girdle muscles. She underwent MRIs of the spine along with extensive blood work. She was on empiric steroids (Dexamethasone) at that time. CPK was mildly elevated but aldolase was wnl. CRP was 0. She was [place] [facility] during the prior hospitalization. Her LE weakness gradually improved during that hospital stay and she was walking nearly 100 feet by time of discharge. Studies for myasthenia gravis, autoimmune disease (SUE, etc), and other neurological conditions were dispatched. She had f/u with [facility] [place] after discharge. EMGs of all 4 limbs were being planned. Her weakness progressed over July into August; she ultimately was readmitted on 09/02/22. MRIs of b/l thighs showed significant inflammation of the thigh muscles. She underwent a right thigh muscle bx on 09/06/22 by general surgery; results most c/w dermatomyositis. 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 This is suggestive of dermatomyositis. Dysphagia can be a symptom of dermatomyositis as well due to weakness of muscles of swallowing. Recent positive SUE fits with her clinical picture. Therapies thus far -- * Solumedrol 125mg IV BID -- Completed 6 days of such. * Was briefly on prednisone; back to once daily solumedrol; now back to PO prednisone 09/23/22. Plan 2 weeks of 50mg, then 2 weeks of 40mg, and so forth. * Completed IVIG x 5 days. Will have such again in 4 weeks. Increased PPI to twice daily dosing for GI prophy while on high-dose steroids. If malignancy-related dermatomyositis is indeed present is there still underlying active breast ca? CT chest/abd/pelvis does not show obvious recurrence or metastatic disease although there is thickening of the left chest wall in vicinity of prior mastectomy. Recent bone scan was negative for skeletal mets. Will talk with patient about obtaining MRI brain to complete her w/u. Prognosis remains guarded. Appreciate Dr Jackson, rheum consult. Appreciate Dr Cobb consult - intermittently patient has expressed that perhaps she would want to forego routine care and switch to a comfort-based approach to her care. (2) Acute respiratory failure with hypoxia: Plan: resolved 2nd to aspiration pneumonia b/l had 10+ days of IV broad-spectrum abx continue NPO status (3) Bilateral pneumonia: Plan: b/l lower lobe. 2nd aspiration. resolved. (4) Dermatomyositis with respiratory involvement: Plan: see #1 above cause of progressive prox muscle weakness, dysphagia, rash, etc. rash component has resolved weakness modestly better in comparison to 1-2 weeks ago unfortunately dysphagia remains based on most recent video swallow Dr Jackson's consult earlier this stay appreciated (5) SUE positive: Plan: see #3 above (6) Breast cancer: Plan: left sided stage 3 at diagnosis s/p chemo/XRT last spring/summer, followed by mastectomy 06/[address]arias extensive CT imaging and bone scan without obvious recurrence/mets although most recent CT chest with "thickening" of left chest wall noted see discussion above (7) Severe protein-calorie malnutrition: Plan: ongoing, present since spring 2021 in the setting of newly diagnosed breast ca and neoadjuvant chemo/radiation during that time period. s/p PEG tube placement 01/2022. cont peptamen 1.5 60cc/hr during daylight hours. 60cc/hr is goal rate. 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 baseline Na level about 130 Na levels remain stable and acceptable BMP am (11) Chronic obstructive pulmonary disease: Plan: stable nebs made prn saline nebs made prn O2 sats wnl lungs clear add back guaifenesin 100mg via PEG QID to help with mucous (12) Acute metabolic encephalopathy: Plan: resolved (13) Dysphagia: Plan: 2nd to oropharyngeal involvement from dermatomyositis see above re: steroids, IVIG, etc strict NPO unless she decides to transition to comfort care - at that time would liberalize her PO intake recent video swallow test results reviewed (14) DVT prophylaxis: Plan: lovenox 30mg daily (15) Hypomagnesemia: Plan: repleted resolved repeat level am (16) Candidiasis of mouth and esophagus: Plan: nystatin 5cc qid - resolved, but coming back? re-examine tomorrow - may just be hairy tongue (17) Volume overload: Plan: resolved Plan updated pt's daughter extensively at bedside today cont PT/OT as tolerated diarrhea - checked c.diff -- negative; schedule loperamide BID via PEG anemia - Fe studies most c/w ACD back pain - no complaint of this today insomnia, adjustment issues, depression -- started remeron 7.5mg HS sleep was better overnight dispo planning - rehab ?? Admission and Anticipated Discharge Date Admission Date: September 02, 2022 Subjective patient was moved to 3rd floor yesterday took remeron last pm for first time slept 5-6 hours continuously - best sleep she has had in weeks denies any new complaints although has decent amount of mucous in throat today and speech is back to being garbly/dysarthric-like daughter at bedside pt stated "I have a little renewed hope - I needed that" Review of Systems Review of Systems: gen - remains weak cv - no orthopnea, no chest pain pulm - cough, unable to expectorate sputum that well; no dyspnea GI - no pain or nausea; diarrhea continues albeit it is better Physical Exam Physical Exam: gen - no distress, cachectic, NAD; speech marbly/garbly/dysarthric today; occasional cough neck - no JVD mouth - MMM, tongue with white coating; mucous in back of throat heart - RRR, s1 s2, no murmur lungs - CTA b/l; decreased breath sounds bases R>L chest - a-port clean abd - soft NT ND BS+; PEG tube site clean ext - no edema, pulses 2+ b/l psych - a/o x 3 Results & Data Results & Data ([facility]) Vital Signs (Past 12 Hours) Vital Signs Temp Pulse Resp BP Pulse Ox O2 Del Method 09/29/22 08:00 36.4 C L 76 12 102/62 93 Room Air 09/29/22 07:42 Room Air PG Care Time/CCT Total # of Minutes Spent Total Time Spent with Patient: Total time spent is greater than 50% in coordination of care (as documented) at patient's floor/unit and/or counseling patient: Coding Level of Care Code 67471 SUB INP/OBS CARE 2/35MIN Diagnoses Myositis M60.9 Acute respiratory failure with hypoxia J96.01 Bilateral pneumonia J18.9 Dermatomyositis with respiratory involvement M33.91 SUE positive R76.8 Breast cancer C50.912 Breast location: unspecified site of breast Estrogen receptor status: unspecified Laterality: left Patient sex: female Severe protein-calorie malnutrition E43 Hypertension I10 Hypertension type: primary hypertension Vitamin B12 deficiency E53.8 Hyponatremia E87.1 Chronic obstructive pulmonary disease J44.9 Acute metabolic encephalopathy G93.41 Dysphagia R13.10 DVT prophylaxis Z29.9 Hypomagnesemia E83.42 Candidiasis of mouth and esophagus B37.81; B37.0 Volume overload E87.70 (1) Breast cancer Breast location: unspecified site of breast Estrogen receptor status: unspecified Laterality: left Patient sex: female Qualified Code(s): C50.912 - Malignant neoplasm of unspecified site of left female breast (2) Hypertension Hypertension type: primary hypertension Qualified Code(s): I10 - Essential (primary) hypertension
[2022-09-29] MEDS: guaiFENesin SUGAR FREE 100 MG/5 ML UDC GT SCH ×3 (13:35→21:08)
[2022-09-29] MEDS: MIRTAZAPINE SOLTAB 15 MG PO SCH (21:08)
[2022-09-29] MEDS: ONDANSETRON INJ 2 MG/ML 2 ML VIAL IV PRN (22:50)
[2022-09-30] MEDS: HYDROmorphone INJ 0.5 MG/0.5 ML SYR IV PRN ×4 (04:42→22:17)
[2022-09-30] MEDS: PEPTAMEN 1.5 CAL 1,000 ML BAG PEG SCH (05:13)
[2022-09-30] MEDS: TUBE FEEDING WATER FLUSH PEG SCH ×4 (05:13→23:21)
[2022-09-30 07:41] LABS: Bilirubin,Total 0.3 mg/dl (0.2-1.0); Total Protein 6.7 gm/dl (6.0-8.3)
[2022-09-30 07:42] LABS: BUN Creatinine Ratio 78.8 (10-20); Calcium 8.4 mg/dl (8.5-10.1); Est GFR (African American) 109.9 ml/min; Est GFR (Non-African American) 94.8 ml/min; Magnesium 1.8 mg/dl (1.7-2.4); Potassium 4.9 mmol/L (3.5-5.1)
[2022-09-30] MEDS: clonazePAM 0.25 MG TAB GT PRN ×2 (08:09→20:25)
[2022-09-30 08:14] LABS: Hematocrit (blood only) 25.5 % (34.1-44.9); Hemoglobin 8.4 g/dl (12.0-16.0); Mean Corpuscular Hemoglobin 31.3 pg (25.0-34.0); Mean Corpuscular Hgb Conc 32.9 g/dL (32.0-36.0); Mean Corpuscular Volume 95.1 fL (80.0-100.0); RDW Coefficient of Variation 17.2 % (11.5-14.5); RDW Standard Deviation 58.9 fL (36.4-46.3); Red Blood Count 2.68 M/uL (3.93-5.22); White Blood Count 12.12 K/ul (4.8-10.8)
[2022-09-30] MEDS: LOPERAMIDE LIQUID 120 ML BOTTLE PEG SCH ×3 (10:16→20:24)
[2022-09-30] MEDS: ENOXAPARIN INJ 30 MG/0.3 ML SYR SQ SCH (10:17)
[2022-09-30] MEDS: METOPROLOL TARTRATE 25 MG TAB PO SCH ×2 (10:17→20:26)
[2022-09-30] MEDS: LANSOPRAZOLE 30 MG SOLTAB PEG SCH ×2 (10:17→20:21)
[2022-09-30] MEDS: CYANOCOBALAMIN (B-12) 500 MCG TABLET PEG SCH (10:18)
[2022-09-30] MEDS: busPIRone 5 MG TAB PEG SCH ×3 (10:19→20:27)
[2022-09-30] MEDS: DULoxetine HCL 30 MG CAP PO SCH (10:19)
[2022-09-30] MEDS: guaiFENesin SUGAR FREE 100 MG/5 ML UDC GT SCH ×4 (10:20→20:23)
[2022-09-30] MEDS: predniSONE 50 MG TAB PEG SCH (10:20)
--- NOTE | 2022-09-30 20:21 | Hospitalist Progress Note ---
Date of Service September 30, 2022 Assessment & Plan (1) Leukocytosis: Plan: mild 12,000 today 2nd to steroids? 2nd to brewing infection? repeat CBC w/ diff in am along with CRP. if still with leukocytosis repeat cxr, u/a, etc. (2) Myositis: Plan: During her 06/2022 to 07/2022 prolonged hospitalization she underwent an extensive work-up looking for her b/l LE weakness and back pain. Most of her weakness was of the hip girdle muscles. She underwent MRIs of the spine along with extensive blood work. She was on empiric steroids (Dexamethasone) at that time. CPK was mildly elevated but aldolase was wnl. CRP was 0. She was evaluated by [facility] [place] [facility] during the prior hospitalization. Her LE weakness gradually improved during that hospital stay and she was walking nearly 100 feet by time of discharge. Studies for myasthenia gravis, autoimmune disease (SUE, etc), and other neurological conditions were dispatched. She had f/u with [facility] [place] [facility] shortly after discharge. EMGs of all 4 limbs were being planned. Her weakness progressed over July into August; she ultimately was readmitted on 09/02/22. MRIs of b/l thighs showed significant inflammation of the thigh muscles. She underwent a right thigh muscle bx on 09/06/22 by general surgery; results most c/w dermatomyositis. 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 This is suggestive of dermatom yositis. Dysphagia can be a symptom of dermatomyositis as well due to weakness of muscles of swallowing. Recent positive SUE fits with her clinical picture. Therapies thus far -- * Solumedrol 125mg IV BID -- Completed 6 days of such. * Was briefly on prednisone; back to once daily solumedrol; now back to PO prednisone 09/23/22. Plan 2 weeks of 50mg, then 2 weeks of 40mg, and so forth. * Completed IVIG x 5 days. Will have such again in 4 weeks. Increased PPI to twice daily dosing for GI prophy while on high-dose steroids. If malignancy-related dermatomyositis is indeed present is there still underlying active breast ca? CT chest/abd/pelvis does not show obvious recurrence or metastatic disease although there is thickening of the left chest wall in vicinity of prior mastectomy. Recent bone scan was negative for skeletal mets. Will talk with patient about obtaining MRI brain to complete her w/u. Prognosis remains guarded. Appreciate Dr Jackson, rheum consult. Appreciate Dr Cobb consult - intermittently patient has expressed that perhaps she would want to forego routine care and switch to a comfort-based approach to her care. (3) Acute respiratory failure with hypoxia: Plan: resolved 2nd to aspiration pneumonia b/l had 10+ days of IV broad-spectrum abx continue NPO status (4) Bilateral pneumonia: Plan: b/l lower lobe. 2nd aspiration. resolved. (5) Dermatomyositis with respiratory involvement: Plan: see #1 above cause of progressive prox muscle weakness, dysphagia, rash, etc. rash component has resolved weakness modestly better in comparison to 1-2 weeks ago unfortunately dysphagia remains based on most recent video swallow Dr Jackson's consult earlier this stay appreciated (6) SUE positive: Plan: see #3 above (7) Breast cancer: Plan: left sided stage 3 at diagnosis s/p chemo/XRT last spring/summer, followed by mastectomy 06/[address]arias extensive CT imaging and bone scan without obvious recurrence/mets although most recent CT chest with "thickening" of left chest wall noted see discussion above (8) Severe protein-calorie malnutrition: Plan: ongoing, present since spring 2021 in the setting of newly diagnosed breast ca and neoadjuvant chemo/radiation during that time period. s/p PEG tube placement 01/2022. cont peptamen 1.5 60cc/hr during daylight hours. 60cc/hr is goal rate. 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 baseline Na level about 130 Na levels remain stable and acceptable today = 132 BMP am (11) Chronic obstructive pulmonary disease: Plan: stable duonebs and saline nebs prn O2 sats wnl lungs clear guaifenesin 100mg via PEG QID to help with mucous see #1 above (12) Acute metabolic encephalopathy: Plan: resolved although groggy/sleepy today - likely 2nd to IV dilaudid + clonazepam cut back dilaudid - she is NOT having pain (13) Dysphagia: Plan: 2nd to oropharyngeal involvement from dermatomyositis see above re: steroids, IVIG, etc strict NPO unless she decides to transition to comfort care - at that time would liberalize her PO intake recent video swallow test results reviewed (14) DVT prophylaxis: Plan: lovenox 30mg daily (15) Hypomagnesemia: Plan: repleted resolved (16) Candidiasis of mouth and esophagus: Plan: nystatin 5cc qid - resolved, but coming back? I do think she has recurrent thrush - restart nystatin qid (17) Volume overload: Plan: resolved Plan updated pt's daughter extensively at bedside multiple times this week cont PT/OT as tolerated diarrhea - checked c.diff -- negative; schedule loperamide BID via PEG ; may need TID dosing anemia - Fe studies most c/w ACD insomnia, adjustment issues, depression -- cont remeron 7.5mg HS dispo planning - rehab this week? Admission and Anticipated Discharge Date Admission Date: September 02, 2022 Subjective patient resting in bed watching football slept decent again overnight no new complaints no new issues speech more garbly/nasally today denies pain in any location was anxious earlier in the day - received clonazepam - anxiety improved w/ such Review of Systems Review of Systems: gen - no fevers cv - no orthopnea, no cp pulm - mild cough; no dyspnea at rest GI - continues with diarrhea Physical Exam Physical Exam: gen - no distress, cachectic, NAD; speech marbly/garbly/dysarthric again today; occasional cough neck - no JVD mouth - MMM, tongue with white coating heart - RRR, s1 s2, no murmur lungs - CTA b/l; decreased breath sounds bases R>L chest - a-port clean abd - soft NT ND BS+ ext - no edema, pulses 2+ b/l psych - a/o x 3 Results & Data Results & Data ([facility]) Vital Signs (Past 12 Hours) Vital Signs Temp Pulse Pulse Resp BP Pulse Ox O2 Del Method 09/30/22 20:08 87 125/68 09/30/22 15:21 36.4 C L 82 16 124/72 95 Room Air Laboratory Results Laboratory Results - last 24 hr 09/30/22 09/30/22 09/30/22 06:45 06:45 06:45 WBC 12.12 H RBC 2.68 L Hgb 8.4 L Hct 25.5 L MCV 95.1 MCH 31.3 MCHC 32.9 RDW Std Deviation 58.9 H RDW Coeff of Emil 17.2 H Plt Count MPV Plt Count ,Citrate Sodium 132 L Potassium 4.9 Chloride 98 Carbon Dioxide 28 Anion Gap 6 BUN 41 H Creatinine 0.52 L Est Cr Clr Drug Dosing 54.0 Est GFR ( Amer) 109.9 Est GFR (Non-Af Amer) 94.8 BUN/Creatinine Ratio 78.8 H Glucose 87 Calcium 8.4 L Magnesium 1.8 Total Bilirubin 0.3 Direct Bilirubin 0.0 AST 35 ALT 54 H Alkaline Phosphatase 61 Total Protein 6.7 Albumin 3.0 L 09/30/22 08:00 WBC RBC Hgb Hct MCV MCH MCHC RDW Std Deviation RDW Coeff of Emil Plt Count MPV Plt Count ,Citrate 341 Sodium Potassium Chloride Carbon Dioxide Anion Gap BUN Creatinine Est Cr Clr Drug Dosing Est GFR ( Amer) Est GFR (Non-Af Amer) BUN/Creatinine Ratio Glucose Calcium Magnesium Total Bilirubin Direct Bilirubin AST ALT Alkaline Phosphatase Total Protein Albumin PG Care Time/CCT Total # of Minutes Spent Total Time Spent with Patient: Total time spent is greater than 50% in coordination of care (as documented) at patient's floor/unit and/or counseling patient: Coding Level of Care Code 21653 SUB INP/OBS CARE 235MIN Diagnoses Leukocytosis D72.829 Myositis M60.9 Acute respiratory failure with hypoxia J96.01 Bilateral pneumonia J18.9 Dermatomyositis with respiratory involvement M33.91 SUE positive R76.8 Breast cancer C50.912 Breast location: unspecified site of breast Estrogen receptor status: unspecified Laterality: left Patient sex: female Severe protein-calorie malnutrition E43 Hypertension I10 Hypertension type: primary hypertension Hyponatremia E87.1 Chronic obstructive pulmonary disease J44.9 Acute metabolic encephalopathy G93.41 Dysphagia R13.10 DVT prophylaxis Z29.9 Hypomagnesemia E83.42 Candidiasis of mouth and esophagus B37.81; B37.0 Volume overload E87.70 (1) Breast cancer Breast location: unspecified site of breast Estrogen receptor status: unspecified Laterality: left Patient sex: female Qualified Code(s): C50.912 - Malignant neoplasm of unspecified site of left female breast (2) Hypertension Hypertension type: primary hypertension Qualified Code(s): I10 - Essential (primary) hypertension
[2022-09-30] MEDS: MIRTAZAPINE SOLTAB 15 MG PO SCH (20:26)
[2022-09-30] MEDS: HEPARIN 100 UNIT/ML 5ML FLUSH FLUSH PRN (22:18)
[2022-10-01] MEDS: ACETAMINOPHEN 10MG/ML Custom 650 MG in EMPTY BAG 0 ML IV PRN ×3 (00:48→19:57)
[2022-10-01] MEDS: HEPARIN 100 UNIT/ML 5ML FLUSH FLUSH PRN ×7 (01:05→20:24)
[2022-10-01] MEDS ORDERED: HYDROmorphone INJ 0.5 MG/0.5 ML SYR IV STA (03:14)
[2022-10-01] MEDS: PEPTAMEN 1.5 CAL 1,000 ML BAG PEG SCH (05:57)
[2022-10-01] MEDS: TUBE FEEDING WATER FLUSH PEG SCH ×4 (05:57→23:39)
[2022-10-01 07:08] LABS: Anion Gap 5 (3-11); BUN Creatinine Ratio 84.3 (10-20); Blood Urea Nitrogen 43 mg/dl (6-23); C Reactive Protein < 0.50 mg/dl (0-0.5); Calcium 8.7 mg/dl (8.5-10.1); Carbon Dioxide 29 mmol/L (21-32); Chloride 98 mmol/L (98-107); Creatinine Clr Calc Pharmacy 55.1 ml/min; Est GFR (African American) 110.6 ml/min; Est GFR (Non-African American) 95.4 ml/min; Glucose 92 mg/dl (70-99(Fasting)); Potassium 4.6 mmol/L (3.5-5.1); Sodium 132 mmol/L (136-145)
[2022-10-01] MEDS: LOPERAMIDE LIQUID 120 ML BOTTLE PEG SCH ×2 (07:23→21:31)
[2022-10-01] MEDS: CYANOCOBALAMIN (B-12) 500 MCG TABLET PEG SCH (08:35)
[2022-10-01] MEDS: METOPROLOL TARTRATE 25 MG TAB PO SCH ×2 (08:35→21:33)
[2022-10-01] MEDS: DULoxetine HCL 30 MG CAP PO SCH (08:35)
[2022-10-01] MEDS: LANSOPRAZOLE 30 MG SOLTAB PEG SCH ×2 (08:35→21:29)
[2022-10-01] MEDS: busPIRone 5 MG TAB PEG SCH ×3 (08:35→21:31)
[2022-10-01] MEDS: clonazePAM 0.25 MG TAB GT PRN ×2 (08:35→17:38)
[2022-10-01] MEDS: predniSONE 50 MG TAB PEG SCH (08:35)
[2022-10-01] MEDS: guaiFENesin SUGAR FREE 100 MG/5 ML UDC GT SCH ×4 (08:48→21:28)
[2022-10-01] MEDS: HYDROmorphone INJ 0.5 MG/0.5 ML SYR IV PRN ×2 (09:43→15:46)
[2022-10-01] MEDS: ENOXAPARIN INJ 30 MG/0.3 ML SYR SQ SCH (11:49)
--- NOTE | 2022-10-01 12:40 | Palliative Care Progress Note ---
Date of Service October 01, 2022 Assessment & Plan (1) Pain: Plan: with prolonged immobility and myositis. Continue prn hydromorphone for pain. She also has prn tylenol and adjuvant duloxetine. (2) Anxiety: Plan: She is on duloxetine, mirtazapine and buspirone with additional prn clonazepam. She is struggling with decisions for goals of care. She is frustrated by her reliance for care and severe debility which is affecting her dignity and from that frustration has frequently said that she just wants to sleep and not wake up. We have discussed appropriate role for medications to relieve her symptoms, provided support and discussed goals of care. (3) Weakness: Plan: with myositis and deconditioning. She was barely able to sit at the edge of the bed with 2 assist. She does not appear to be a good rehab candidate in her current state. (4) Palliative care encounter: Plan: Mrs. Benson has declined to discuss goals of care today and tells me that she wants to talk with Gilda later today. I did call Gilda to discuss their conversation over the weekend. Dalton tells me that her mother did not want to discuss goals of care over the weekend. She has been having great difficulty making a decision and we discussed the idea that she may not be able to make a decision for herself. She has expressed concern about "giving up", "failing" and "letting Dalton down" on multiple occasions, despite support and reassurance that this is not the case. Given her wish to continue to "fight" plan remains continuing current care. Gilda recognizes that if her mother has another aspiration episode, infection, or some other event, her prognosis for recovery is very poor. At that time, she has expressed that if her mother is not able to speak for herself, decision would be for comfort care. Admission and Anticipated Discharge Date Admission Date: September 02, 2022 Subjective Mrs. Benson was initially sleeping when I checked on her and appeared comfortable. She was awake when I returned to room with PT and RN. She has expressed desire to try to do some rehab so we worked together to help her sit on the edge of the bed. She was very weak and complained of dizziness and back pain. She was able to sit on the edge of the bed for less than 5minutes and returned to bed. Review of Systems Review of Systems: Pain 2/3 Dypsnea 0/3 Anxiety 2/3 NAusea 0/3 Fatigue 3/3 Drowsiness 2/3 PPS 30% Physical Exam Constitutional: + cachectic ENMT: Mouth: + dry oral mucous membranes Respiratory: normal respiratory effort; no labored breathing Cardiovascular: Rate/Rhythm: regular rate and regular rhythm Gastrointestinal (Abdomen): PEG tube, nondistended Musculoskeletal: Extremities: + muscle atrophy Skin: warm and dry Neurologic: Speech / Cognition: normal cognition Results & Data ([facility]) Vital Signs (Past 12 Hours) Vital Signs Temp Pulse Resp BP Pulse Ox O2 Del Method 10/01/22 07:13 97.7 F 85 16 151/77 H 99 Room Air PG Care Time/CCT Total # of Minutes Spent Total Time Spent: 53 Total Time Spent with Patient: Total time spent is greater than 50% in coordination of care (as documented) at patient's floor/unit and/or counseling patient:[id number] symptom management, goals of care, patient and family education and support Coding Level of Care Code 43336 SUB INP/OBS CARE 3/50MIN Diagnoses Pain R52 Anxiety F41.9 Weakness R53.1 Palliative care encounter Z51.5
[2022-10-01] MEDS: ONDANSETRON INJ 2 MG/ML 2 ML VIAL IV PRN (14:30)
[2022-10-01] MEDS: NYSTATIN SUSP 500,000 U/5 ML UDC PO SCH ×2 (20:03→21:40)
--- NOTE | 2022-10-01 20:37 | Hospitalist Progress Note ---
Date of Service October 01, 2022 Assessment & Plan (1) Myositis: Plan: During her 06/2022 to 07/2022 prolonged hospitalization she underwent an extensive work-up looking for her b/l LE weakness and back pain. Most of her weakness was of the hip girdle muscles. She underwent MRIs of the spine along with extensive blood work. She was on empiric steroids (Dexamethasone) at that time. CPK was mildly elevated but aldolase was wnl. CRP was 0. She was evaluated by [facility] during the prior hospitalization. Her LE weakness gradually improved during that hospital stay and she was walking nearly 100 feet by time of discharge. Studies for myasthenia gravis, autoimmune disease (SUE, etc), and other neurological conditions were dispatched. She had f/u with [facility] shortly after discharge. EMGs of all 4 limbs were being planned. Her weakness progressed over July into August; she ultimately was readmitted on 09/02/22. MRIs of b/l thighs showed significant inflammation of the thigh muscles. She underwent a right thigh muscle bx on 09/06/22 by general surgery; results most c/w dermatomyositis. 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 This is c/w dermatomyositis. Dysphagia is due to her dermatomyositis. Therapies for her DM while here: * Solumedrol 125mg IV BID -- Completed 6 days of such. * Was briefly on prednisone; back to once daily solumedrol; now back to PO prednisone 09/23/22. Plan 2 weeks of 50mg, then 2 weeks of 40mg, and so forth. * Completed IVIG x 5 days. Will have such again in 4 weeks. Increased PPI to twice daily dosing for GI prophy while on high-dose steroids. The Dermatomyositis is concerning in that this would suggest ongoing breast ca / recurrence despite previous chemo, L mastectomy, etc. Recent CT chest/abd/pelvis did not show obvious recurrence or metastatic disease although there is thickening of the left chest wall in vicinity of prior mastectomy. Recent bone scan was negative for skeletal mets. Prognosis remains guarded. Appreciate Dr Jackson, rheum consult. Appreciate Dr Cobb consult - intermittently patient has expressed that perhaps she would want to forego routine care and switch to a comfort-based approach to her care. (2) Acute respiratory failure with hypoxia: Plan: resolved 2nd to aspiration pneumonia b/l had 10+ days of IV broad-spectrum abx continue NPO status (3) Bilateral pneumonia: Plan: b/l lower lobe. 2nd aspiration. resolved. (4) Dermatomyositis with respiratory involvement: Plan: see #1 above cause of progressive prox muscle weakness, dysphagia, rash, etc. rash component has resolved weakness modestly better in comparison to 1-2 weeks ago unfortunately dysphagia remains based on most recent video swallow (09/24/22) Dr Jackson's consult earlier this stay much appreciated (5) Breast cancer: Plan: left sided stage 3 at diagnosis s/p chemo/XRT last spring/summer, followed by mastectomy 06/[address]arias extensive CT imaging and bone scan without obvious recurrence/mets although most recent CT chest with "thickening" of left chest wall noted see discussion above in #1 (6) Severe protein-calorie malnutrition: Plan: ongoing, present since spring 2021 in the setting of newly diagnosed breast ca and neoadjuvant chemo/radiation during that time period. s/p PEG tube placement 01/2022. cont peptamen 1.5 60cc/hr during daylight hours. 60cc/hr is goal rate. 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 baseline Na level about 130 Na levels remain stable and acceptable Na level today 132 (9) Chronic obstructive pulmonary disease: Plan: stable duonebs and saline nebs prn O2 sats wnl lungs clear guaifenesin 100mg via PEG QID to help with mucous see #1 above (10) Acute metabolic encephalopathy: Plan: resolved although groggy/sleepy/slurry speech -- likely 2nd to IV dilaudid + clonazepam would place these meds on hold use buspar TID for anxiety use norco prn pain (11) Dysphagia: Plan: 2nd to oropharyngeal involvement from dermatomyositis see above re: steroids, IVIG, etc strict NPO unless she decides to transition to comfort care - at that time would liberalize her PO intake recent video swallow test results reviewed (12) DVT prophylaxis: Plan: lovenox 30mg daily (13) Hypomagnesemia: Plan: repleted resolved (14) Candidiasis of mouth and esophagus: Plan: resolved, but has returned - 2nd to ongoing steroid use restarted nystatin qid (15) Volume overload: Plan: earlier in the admission -- resolved (16) Diarrhea: Plan: multiple c. diff tests negative 2nd to tube feedings, altered bowel enma in midst of recent broad-spectrum antibiotics, etc increase loperamide 2mg TID via PEG Plan updated pt's daughter extensively at bedside multiple times this week updated pt's daughter by phone this evening cont PT/OT as tolerated but rehab potential is very poor anemia - Fe studies most c/w ACD insomnia, adjustment issues, depression -- cont remeron 7.5mg HS dispo planning - SNF Admission and Anticipated Discharge Date Admission Date: September 02, 2022 Subjective patient resting in bed easily opens eyes throughout the day she was requesting Dilaudid and clonazepam the dilaudid was requested due to back pain, but during my visit with her she denied pain in any location she reported she had significant diarrhea throughout the day - at least 5+ stools today liquid the stools come on quickly and without warning denies abd pain no nausea Review of Systems Review of Systems: cv - no orthopnea, no chest pain pulm - occasional cough, mainly dry; no dyspnea GI - no vomiting; no blood per rectum - dean in place (placed 09/09/22) Physical Exam Physical Exam: gen - no distress, cachectic, NAD; speech marbly/garbly/dysarthric again today - no change neck - no JVD mouth - MMM, tongue with white coating (likely thrush) heart - RRR, s1 s2, no murmur lungs - CTA b/l; decreased breath sounds bases R>L chest - a-port clean abd - soft NT ND BS+, PEG tube site clean and without drainage ext - no edema, pulses 2+ b/l psych - a/o x 3 musculo - diffuse muscle wasting all limbs rash - no recurrent rash on face/neck/chest/dorsum hands Results & Data Results & Data ([facility]) Vital Signs (Past 12 Hours) Vital Signs Temp Pulse Resp BP Pulse Ox O2 Del Method 10/01/22 15:05 36.4 C L 85 17 129/73 96 Room Air Laboratory Results Laboratory Results - last 24 hr 10/01/22 06:17 Sodium 132 L Potassium 4.6 Chloride 98 Carbon Dioxide 29 Anion Gap 5 BUN 43 H Creatinine 0.51 L Est Cr Clr Drug Dosing 55.1 Est GFR ( Amer) 110.6 Est GFR (Non-Af Amer) 95.4 BUN/Creatinine Ratio 84.3 H Glucose 92 Calcium 8.7 C-Reactive Protein < 0.50 PG Care Time/CCT Total # of Minutes Spent Total Time Spent with Patient: Total time spent is greater than 50% in coordination of care (as documented) at patient's floor/unit and/or counseling patient: Coding Level of Care Code 72717 SUB INP/OBS CARE 2/35MIN Diagnoses Myositis M60.9 Acute respiratory failure with hypoxia J96.01 Bilateral pneumonia J18.9 Dermatomyositis with respiratory involvement M33.91 Breast cancer C50.912 Breast location: unspecified site of breast Estrogen receptor status: unspecified Laterality: left Patient sex: female Severe protein-calorie malnutrition E43 Hypertension I10 Hypertension type: primary hypertension Hyponatremia E87.1 Chronic obstructive pulmonary disease J44.9 Acute metabolic encephalopathy G93.41 Dysphagia R13.10 DVT prophylaxis Z29.9 Hypomagnesemia E83.42 Candidiasis of mouth and esophagus B37.81; B37.0 Volume overload E87.70 Diarrhea R19.7 (1) Breast cancer Breast location: unspecified site of breast Estrogen receptor status: unspecified Laterality: left Patient sex: female Qualified Code(s): C50.912 - Malignant neoplasm of unspecified site of left female breast (2) Hypertension Hypertension type: primary hypertension Qualified Code(s): I10 - Essential (primary) hypertension
[2022-10-01] MEDS: MIRTAZAPINE SOLTAB 15 MG PO SCH (21:30)
[2022-10-01] MEDS: MELATONIN 3 MG TAB PO PRN (23:39)
[2022-10-02] MEDS: HYDROCODONE/ACETAMOPHEN 5/325MG TAB PO PRN ×3 (02:25→14:32)
[2022-10-02] MEDS: ACETAMINOPHEN 10MG/ML Custom 650 MG in EMPTY BAG 0 ML IV PRN (05:30)
[2022-10-02] MEDS: PEPTAMEN 1.5 CAL 1,000 ML BAG PEG SCH (05:36)
[2022-10-02] MEDS: TUBE FEEDING WATER FLUSH PEG SCH ×4 (05:38→23:40)
[2022-10-02] MEDS: HEPARIN 100 UNIT/ML 5ML FLUSH FLUSH PRN (05:52)
[2022-10-02] MEDS: METOPROLOL TARTRATE 25 MG TAB PO SCH ×2 (08:32→20:19)
[2022-10-02] MEDS: busPIRone 5 MG TAB PEG SCH ×3 (08:33→20:17)
[2022-10-02] MEDS: guaiFENesin SUGAR FREE 100 MG/5 ML UDC GT SCH ×4 (08:33→20:18)
[2022-10-02] MEDS: LANSOPRAZOLE 30 MG SOLTAB PEG SCH ×2 (08:34→21:41)
[2022-10-02] MEDS: DULoxetine HCL 30 MG CAP PO SCH (08:34)
[2022-10-02] MEDS: CYANOCOBALAMIN (B-12) 500 MCG TABLET PEG SCH (08:34)
[2022-10-02] MEDS: predniSONE 50 MG TAB PEG SCH (08:35)
[2022-10-02] MEDS: ONDANSETRON INJ 2 MG/ML 2 ML VIAL IV PRN (08:36)
[2022-10-02] MEDS: LOPERAMIDE LIQUID 120 ML BOTTLE PEG SCH ×3 (08:39→20:19)
[2022-10-02] MEDS: ENOXAPARIN INJ 30 MG/0.3 ML SYR SQ SCH (08:55)
[2022-10-02] MEDS: NYSTATIN SUSP 500,000 U/5 ML UDC PO SCH ×4 (08:55→20:15)
[2022-10-02] MEDS ORDERED: LOPERAMIDE LIQUID 120 ML BOTTLE PEG SCH (14:00)
--- NOTE | 2022-10-02 16:59 | Hospitalist Progress Note ---
Date of Service October 02, 2022 Assessment & Plan (1) Myositis: Plan: During her 06/2022 to 07/2022 prolonged hospitalization she underwent an extensive work-up looking for her b/l LE weakness and back pain. Most of her weakness was of the hip girdle muscles. She underwent MRIs of the spine along with extensive blood work. She was on empiric steroids (Dexamethasone) at that time. CPK was mildly elevated but aldolase was wnl. CRP was 0. She was evaluated by [facility] during the prior hospitalization. Her LE weakness gradually improved during that hospital stay and she was walking nearly 100 feet by time of discharge. Studies for myasthenia gravis, autoimmune disease (SUE, etc), and other neurological conditions were dispatched. She had f/u with [facility] shortly after discharge. EMGs of all 4 limbs were being planned. Her weakness progressed over July into August; she ultimately was readmitted on 09/02/22. MRIs of b/l thighs showed significant inflammation of the thigh muscles. She underwent a right thigh muscle bx on 09/06/22 by general surgery; results most c/w dermatomyositis. 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 This is c/w dermatomyositis. Dysphagia is due to her dermatomyositis. Therapies for her DM while here: * Solumedrol 125mg IV BID -- Completed 6 days of such. * Was briefly on prednisone; back to once daily solumedrol; now back to PO prednisone 09/23/22. Plan 2 weeks of 50mg, then 2 weeks of 40mg starting 10/07/22, and so forth. * Completed IVIG x 5 days. Will have such again in 4 weeks around 10/09/22 . Increased PPI to twice daily dosing for GI prophy while on high-dose steroids. The Dermatomyositis is concerning in that this would suggest ongoing breast ca / recurrence despite previous chemo, L mastectomy, etc. Recent CT chest/abd/pelvis did not show obvious recurrence or metastatic disease although there is thickening of the left chest wall in vicinity of prior mastectomy. Recent bone scan was negative for skeletal mets. Prognosis remains guarded. Appreciate Dr Jackson, rheum consult. Appreciate Dr Cobb consult - intermittently patient has expressed that perhaps she would want to forego routine care and switch to a comfort-based approach to her care. For now, she tells me her goal is to get strong enough to walk to a bedside commode (2) Acute respiratory failure with hypoxia: Plan: resolved 2nd to aspiration pneumonia b/l had 10+ days of IV broad-spectrum abx continue NPO status, aspirtion precautions with tube feeds (3) Bilateral pneumonia: Plan: b/l lower lobe. 2nd aspiration. resolved. (4) Dermatomyositis with respiratory involvement: Plan: see above cause of progressive prox muscle weakness, dysphagia, rash, etc. rash component has resolved weakness modestly better in comparison to 1-2 weeks ago unfortunately dysphagia remains based on most recent video swallow (09/24/22) Dr Jackson's consult earlier this stay much appreciated (5) Breast cancer: Plan: left sided stage 3 at diagnosis s/p chemo/XRT last spring/summer, followed by mastectomy 06/[address] extensive CT imaging and bone scan without obvious recurrence/mets although most recent CT chest with "thickening" of left chest wall noted (6) Severe protein-calorie malnutrition: Plan: ongoing, present since spring 2021 in the setting of newly diagnosed breast ca and neoadjuvant chemo/radiation during that time period. s/p PEG tube placement 01/2022. cont peptamen 1.5 60cc/hr during daylight hours. 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 baseline Na level about 130 Na levels remain stable and acceptable Na level stable at 132 (9) Chronic obstructive pulmonary disease: Plan: stable duonebs and saline nebs prn O2 sats wnl lungs clear guaifenesin 100mg via PEG QID to help with mucous (10) Acute metabolic encephalopathy: Plan: resolved although groggy/sleepy/slurry speech -- likely 2nd to IV dilaudid + clonazepam placed these meds on hold and now on [place] prn, doing better use buspar TID for anxiety (11) Dysphagia: Plan: 2nd to oropharyngeal involvement from dermatomyositis see above re: steroids, IVIG, etc strict NPO unless she decides to transition to comfort care - at that time would liberalize her PO intake recent video swallow test results reviewed (12) DVT prophylaxis: Plan: lovenox 30mg daily (13) Candidiasis of mouth and esophagus: Plan: resolved, but has returned - 2nd to ongoing steroid use restarted nystatin qid (14) Diarrhea: Plan: multiple c. diff tests negative 2nd to tube feedings, altered bowel enma in midst of recent broad-spectrum antibiotics, etc Still ongoing increase loperamide again to 2mg QID via PEG (15) Insomnia: Plan: insomnia, adjustment issues, depression -- cont remeron 7.5mg HS (16) Anemia: Plan: anemia - Fe studies most c/w ACD Plan cont PT/OT as tolerated but rehab potential is very poor dispo planning - MEDICALLY STABLE FOR DISCHARGE- awaiting SNF placement Admission and Anticipated Discharge Date Admission Date: September 02, 2022 Subjective Pt reports ongoing diarrhea all morning. Some associated nausea. This improved after receiving Zofran. Pain seems controlled. Says her goals for the near future are to be able to walk from the bed to the bedside commode. Review of Systems Review of Systems: All systems reviewed & are unremarkable except as noted in HPI & below Physical Exam Physical Exam: gen - comfortable, no distress, cachectic, but NAD heart - RRR, s1 s2, no murmur lungs - CTA anteriorly, decreased BS at right base; no wheeze or rales or distress chest - a-port clean abd - soft NT ND BS+; scaphoid abdomen, PEG tube site clean ext - no edema psych - a/o x 3, flat affect Results & Data Results & Data ([facility]) Vital Signs (Past 12 Hours) Vital Signs Temp Pulse Resp BP Pulse Ox O2 Del Method 10/02/22 15:27 36.4 C L 82 16 133/72 96 Room Air 10/02/22 08:30 Room Air 10/02/22 07:04 36.4 C L 83 16 128/72 94 Room Air PG Care Time/CCT Total # of Minutes Spent Total Time Spent with Patient: Total time spent is greater than 50% in coordination of care (as documented) at patient's floor/unit and/or counseling patient: Coding Level of Care Code 89233 SUB INP/OBS CARE 125MIN Diagnoses Myositis M60.9 Acute respiratory failure with hypoxia J96.01 Bilateral pneumonia J18.9 Dermatomyositis with respiratory involvement M33.91 Breast cancer C50.912 Breast location: unspecified site of breast Estrogen receptor status: unspecified Patient sex: female Laterality: left Severe protein-calorie malnutrition E43 Hypertension I10 Hypertension type: primary hypertension Hyponatremia E87.1 Chronic obstructive pulmonary disease J44.9 Acute metabolic encephalopathy G93.41 Dysphagia R13.10 DVT prophylaxis Z29.9 Candidiasis of mouth and esophagus B37.81; B37.0 Diarrhea R19.7 Insomnia G47.00 Anemia D64.9 (1) Breast cancer Breast location: unspecified site of breast Estrogen receptor status: unspecified Patient sex: female Laterality: left Qualified Code(s): C50.912 - Malignant neoplasm of unspecified site of left female breast (2) Hypertension Hypertension type: primary hypertension Qualified Code(s): I10 - Essential (primary) hypertension
[2022-10-02] MEDS ORDERED: PEPTAMEN 1.5 CAL 1,000 ML BAG PEG SCH (17:04)
[2022-10-02] MEDS: MIRTAZAPINE SOLTAB 15 MG PO SCH (20:18)
[2022-10-02] MEDS: ACETAMINOPHEN/HYDROcodone ELIX 15 ML/CUP PO PRN (23:40)
[2022-10-03] MEDS: LANSOPRAZOLE 30 MG SOLTAB PEG SCH ×2 (05:35→21:21)
[2022-10-03] MEDS: TUBE FEEDING WATER FLUSH PEG SCH ×4 (06:00→21:22)
[2022-10-03] MEDS: PEPTAMEN 1.5 CAL 1,000 ML BAG PEG SCH (06:06)
[2022-10-03] MEDS: ACETAMINOPHEN/HYDROcodone ELIX 15 ML/CUP PO PRN ×2 (08:06→19:36)
[2022-10-03] MEDS: METOPROLOL TARTRATE 25 MG TAB PO SCH ×2 (08:09→19:40)
[2022-10-03] MEDS: guaiFENesin SUGAR FREE 100 MG/5 ML UDC GT SCH ×4 (08:09→19:40)
[2022-10-03] MEDS: DULoxetine HCL 30 MG CAP PO SCH (08:10)
[2022-10-03] MEDS: busPIRone 5 MG TAB PEG SCH ×3 (08:10→19:42)
[2022-10-03] MEDS: CYANOCOBALAMIN (B-12) 500 MCG TABLET PEG SCH (08:10)
[2022-10-03] MEDS: predniSONE 50 MG TAB PEG SCH (08:10)
[2022-10-03] MEDS: NYSTATIN SUSP 500,000 U/5 ML UDC PO SCH ×2 (08:11→12:36)
[2022-10-03] MEDS: ENOXAPARIN INJ 30 MG/0.3 ML SYR SQ SCH (08:12)
[2022-10-03] MEDS: LOPERAMIDE LIQUID 120 ML BOTTLE PEG SCH ×4 (08:12→19:40)
[2022-10-03] MEDS ORDERED: hydrOXYzine HCl 25 MG TAB PEG PRN (08:48)
[2022-10-03] MEDS ORDERED: MULTI VIT W/MINERALS LIQUID 15 ML UDP PEG SCH (09:00)
[2022-10-03] MEDS ORDERED: MULTI VIT W/MINERALS LIQUID 15 ML UDP PO SCH (09:00)
--- NOTE | 2022-10-03 15:19 | Hospitalist Progress Note ---
Date of Service October 03, 2022 Assessment & Plan (1) Myositis: Plan: During her 06/2022 to 07/2022 prolonged hospitalization she underwent an extensive work-up looking for her b/l LE weakness and back pain. Most of her weakness was of the hip girdle muscles. She underwent MRIs of the spine along with extensive blood work. She was on empiric steroids (Dexamethasone) at that time. CPK was mildly elevated but aldolase was wnl. CRP was 0. She was evaluated by [facility] during the prior hospitalization. Her LE weakness gradually improved during that hospital stay and she was walking nearly 100 feet by time of discharge. Studies for myasthenia gravis, autoimmune disease (SUE, etc), and other neurological conditions were dispatched. She had f/u with [facility] shortly after discharge. EMGs of all 4 limbs were being planned. Her weakness progressed over July into August; she ultimately was readmitted on 09/02/22. MRIs of b/l thighs showed significant inflammation of the thigh muscles. She underwent a right thigh muscle bx on 09/06/22 by general surgery; results most c/w dermatomyositis. 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 This is c/w dermatomyositis. Dysphagia is due to her dermatomyositis. Therapies for her DM while here: * Solumedrol 125mg IV BID -- Completed 6 days of such. * Was briefly on prednisone; back to once daily solumedrol; now back to PO prednisone 09/23/22. Plan 2 weeks of 50mg, then 2 weeks of 40mg starting 10/07/22, and so forth. * Completed IVIG x 5 days. Will have such again in 4 weeks around 10/09/22-if discharged before then, Dr. Jackson to be notified to arrange this as an outpatient . Increased PPI to twice daily dosing for GI prophy while on high-dose steroids. The Dermatomyositis is concerning in that this would suggest ongoing breast ca / recurrence despite previous chemo, L mastectomy, etc. Recent CT chest/abd/pelvis did not show obvious recurrence or metastatic disease although there is thickening of the left chest wall in vicinity of prior mastectomy. Recent bone scan was negative for skeletal mets. Prognosis remains guarded. Appreciate Dr Jackson, rheum consult. Appreciate Dr Cobb consult - intermittently patient has expressed that perhaps she would want to forego routine care and switch to a comfort-based approach to her care. For now, she tells me her goal is to get strong enough to walk to a bedside commode (2) Acute respiratory failure with hypoxia: Plan: resolved 2nd to aspiration pneumonia b/l had 10+ days of IV broad-spectrum abx continue NPO status, aspirtion precautions with tube feeds (3) Bilateral pneumonia: Plan: b/l lower lobe. 2nd aspiration. resolved. (4) Dermatomyositis with respiratory involvement: Plan: see above cause of progressive prox muscle weakness, dysphagia, rash, etc. rash component has resolved weakness modestly better in comparison to 1-2 weeks ago unfortunately dysphagia remains based on most recent video swallow (09/24/22) Dr Jackson's consult earlier this stay much appreciated (5) Breast cancer: Plan: left sided stage 3 at diagnosis s/p chemo/XRT last spring/summer, followed by mastectomy 06/[address] extensive CT imaging and bone scan without obvious recurrence/mets although most recent CT chest with "thickening" of left chest wall noted (6) Severe protein-calorie malnutrition: Plan: ongoing, present since spring 2021 in the setting of newly diagnosed breast ca and neoadjuvant chemo/radiation during that time period. s/p PEG tube placement 01/2022. cont peptamen 1.5 at 65cc/hr during daylight hours. 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 baseline Na level about 130 Na levels remain stable and acceptable Na level stable at 132 (9) Chronic obstructive pulmonary disease: Plan: stable duonebs and saline nebs prn O2 sats wnl lungs clear guaifenesin 100mg via PEG QID to help with mucous (10) Acute metabolic encephalopathy: Plan: resolved although groggy/sleepy/slurry speech -- likely 2nd to IV dilaudid + clonazepam stopped dialudid and now on [place] prn, doing better adding low dose prn of clonazepam back on only at bedtime at pt request (11) Dysphagia: Plan: 2nd to oropharyngeal involvement from dermatomyositis see above re: steroids, IVIG, etc strict NPO unless she decides to transition to comfort care - at that time would liberalize her PO intake recent video swallow test results reviewed (12) DVT prophylaxis: Plan: lovenox 30mg daily (13) Candidiasis of mouth and esophagus: Plan: resolved, but has returned - 2nd to ongoing steroid use she is declining nystatin-will stop (14) Diarrhea: Plan: multiple c. diff tests negative 2nd to tube feedings, altered bowel enma in midst of recent broad-spectrum antibiotics, etc Still ongoing but improved with increased dose of imodium -continue loperamide 2mg QID via PEG (15) Insomnia: Plan: insomnia, adjustment issues, depression -- cont remeron 7.5mg HS -add back on low dose klonopin 0.25mg hs prn at pt's request -increase buspar to 7.5mg po tid for anxiety -hydroxyzine trialed on 10/03 and no effect (16) Anemia: Plan: anemia - Fe studies most c/w ACD Plan cont PT/OT as tolerated dispo planning - MEDICALLY STABLE FOR DISCHARGE- awaiting SNF placement-likely not till next week at [place] Care Admission and Anticipated Discharge Date Admission Date: September 02, 2022 Subjective Pt reports one loose stool today. Having anxiety and tried the hydroxyzine I ordered but did nothing. Reports she just wants something that will make her sleep for a long time. I advised she should only take something for sleep at nighttime and not during daytime so she can participate in therapy, etc. She is agreeable to this but requests the clonazepam be restarted for bedtime. She worked with PT/OT today and was very scared, thinking she would fall. She did get to a wheelchair today and stayed there for 30 min. Still has [place] in place even though I ordered it to be removed (again) yesterday. Review of Systems Review of Systems: All systems reviewed & are unremarkable except as noted in HPI & below Physical Exam Physical Exam: gen - comfortable, no distress, cachectic, but NAD heart - RRR, s1 s2, no murmur lungs - CTA anteriorly, decreased BS at right base; no wheeze or rales or distress chest - a-port clean abd - soft NT ND BS+; scaphoid abdomen, PEG tube site clean ext - no edema psych - a/o x 3, flat affect Results & Data Results & Data ([facility]) Vital Signs (Past 12 Hours) Vital Signs Temp Pulse Pulse Pulse Resp BP Pulse Ox 10/03/22 14:33 36.7 C 77 16 102/63 97 01/11/23 11:21 37.4 C 74 18 120/67 94 10/03/22 08:15 10/03/22 07:56 37.1 C 83 17 111/72 94 O2 Del Method 10/03/22 14:33 Room Air 10/03/22 11:21 Room Air 10/03/22 08:15 Room Air 10/03/22 07:56 Room Air PG Care Time/CCT Total # of Minutes Spent Total Time Spent with Patient: Total time spent is greater than 50% in coordination of care (as documented) at patient's floor/unit and/or counseling patient: Coding Level of Care Code 27467 SUB INP/OBS CARE 2/35MIN Diagnoses Myositis M60.9 Acute respiratory failure with hypoxia J96.01 Bilateral pneumonia J18.9 Dermatomyositis with respiratory involvement M33.91 Breast cancer C50.912 Breast location: unspecified site of breast Estrogen receptor status: unspecified Laterality: left Patient sex: female Severe protein-calorie malnutrition E43 Hypertension I10 Hypertension type: primary hypertension Hyponatremia E87.1 Chronic obstructive pulmonary disease J44.9 Acute metabolic encephalopathy G93.41 Dysphagia R13.10 DVT prophylaxis Z29.9 Candidiasis of mouth and esophagus B37.81; B37.0 Diarrhea R19.7 Insomnia G47.00 Anemia D64.9 (1) Breast cancer Breast location: unspecified site of breast Estrogen receptor status: unspecified Laterality: left Patient sex: female Qualified Code(s): C50.912 - Malignant neoplasm of unspecified site of left female breast (2) Hypertension Hypertension type: primary hypertension Qualified Code(s): I10 - Essential (primary) hypertension
[2022-10-03] MEDS: MIRTAZAPINE SOLTAB 15 MG PO SCH (19:41)
[2022-10-03] MEDS: clonazePAM 0.25 MG TAB GT PRN (21:21)
[2022-10-04] MEDS: MELATONIN 3 MG TAB PO PRN (00:08)
[2022-10-04] MEDS: ACETAMINOPHEN/HYDROcodone ELIX 15 ML/CUP PO PRN ×4 (04:49→22:53)
[2022-10-04] MEDS ORDERED: PEPTAMEN 1.5 CAL 1,000 ML BAG PEG SCH (06:00)
[2022-10-04] MEDS: TUBE FEEDING WATER FLUSH PEG SCH ×4 (06:15→21:50)
[2022-10-04] MEDS: LANSOPRAZOLE 30 MG SOLTAB PEG SCH ×2 (06:19→21:03)
[2022-10-04] MEDS: PEPTAMEN 1.5 CAL 1,000 ML BAG PEG SCH (06:22)
[2022-10-04 07:58] LABS: Basophils # (auto) 0.01 K/uL (0-0.2); Basophils % (auto) 0.1 %; Eosinophils # (auto) 0.14 K/uL (0-0.50); Eosinophils % (auto) 1.9 %; Hematocrit (blood only) 26.6 % (34.1-44.9); Hemoglobin 8.9 g/dl (12.0-16.0); Immature Granulocytes # (auto) 0.11 K/uL (0.00-0.02); Immature Granulocytes % (auto) 1.5 %; Lymphocytes # (auto) 1.28 K/uL (1.2-3.4); Lymphocytes % (auto) 17.8 %; Mean Corpuscular Hemoglobin 32.4 pg (25.0-34.0); Mean Corpuscular Hgb Conc 33.5 g/dL (32.0-36.0); Mean Corpuscular Volume 96.7 fL (80.0-100.0); Monocytes % (auto) 12.5 %; Neutrophils # (auto) 4.77 K/uL (1.4-6.5); Neutrophils % (auto) 66.2 %; Platelet Estimate Normal (Normal); RDW Coefficient of Variation 17.2 % (11.5-14.5); RDW Standard Deviation 61.1 fL (36.4-46.3); Red Blood Count 2.75 M/uL (3.93-5.22); White Blood Count 7.21 K/ul (4.8-10.8)
[2022-10-04] MEDS: busPIRone 5 MG TAB PEG SCH ×3 (08:28→21:02)
[2022-10-04] MEDS: guaiFENesin SUGAR FREE 100 MG/5 ML UDC GT SCH ×4 (08:29→21:04)
[2022-10-04] MEDS: METOPROLOL TARTRATE 25 MG TAB PO SCH ×2 (08:29→21:05)
[2022-10-04] MEDS: MULTI VIT W/MINERALS LIQUID 15 ML UDP PEG SCH (08:29)
[2022-10-04] MEDS: predniSONE 50 MG TAB PEG SCH (08:29)
[2022-10-04] MEDS: DULoxetine HCL 30 MG CAP PO SCH (08:29)
[2022-10-04] MEDS: CYANOCOBALAMIN (B-12) 500 MCG TABLET PEG SCH (08:30)
[2022-10-04] MEDS: LOPERAMIDE LIQUID 120 ML BOTTLE PEG SCH ×4 (08:30→21:04)
[2022-10-04] MEDS: ENOXAPARIN INJ 30 MG/0.3 ML SYR SQ SCH (08:30)
[2022-10-04 09:27] LABS: BUN Creatinine Ratio 75.5 (10-20); Calcium 8.8 mg/dl (8.5-10.1); Est GFR (African American) 109.2 ml/min; Est GFR (Non-African American) 94.2 ml/min; Magnesium 1.7 mg/dl (1.7-2.4); Phosphorus 3.1 mg/dl (2.5-4.9); Potassium 4.6 mmol/L (3.5-5.1)
[2022-10-04] MEDS ORDERED: DIPHENOXYLATE/ATROPINE 2.5/0.025MG 5ML PEG PRN (13:48)
[2022-10-04] MEDS: HEPARIN 100 UNIT/ML 5ML FLUSH FLUSH PRN (15:30)
[2022-10-04] MEDS: MIRTAZAPINE SOLTAB 15 MG PO SCH (21:03)
[2022-10-04] MEDS: clonazePAM 0.25 MG TAB GT PRN (21:06)
--- NOTE | 2022-10-04 23:21 | Hospitalist Progress Note ---
Date of Service October 04, 2022 Assessment & Plan (1) Myositis: Plan: During her 06/2022 to 07/2022 prolonged hospitalization she underwent an extensive work-up looking for her b/l LE weakness and back pain. Most of her weakness was of the hip girdle muscles. She underwent MRIs of the spine along with extensive blood work. She was on empiric steroids (Dexamethasone) at that time. CPK was mildly elevated but aldolase was wnl. CRP was 0. She was evaluated by [facility] during the prior hospitalization. Her LE weakness gradually improved during that hospital stay and she was walking nearly 100 feet by time of discharge. Studies for myasthenia gravis, autoimmune disease (SUE, etc), and other neurological conditions were dispatched. She had f/u with [facility] shortly after discharge. EMGs of all 4 limbs were being planned. Her weakness progressed over July into August; she ultimately was readmitted on 09/02/22. MRIs of b/l thighs showed significant inflammation of the thigh muscles. She underwent a right thigh muscle bx on 09/06/22 by general surgery; results most c/w dermatomyositis. 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 This is c/w dermatomyositis. Dysphagia is due to her dermatomyositis. Therapies for her DM while here: * Solumedrol 125mg IV BID -- Completed 6 days of such. * Was briefly on prednisone; back to once daily solumedrol; now back to PO prednisone 09/23/22. Plan 2 weeks of 50mg, then 2 weeks of 40mg starting 10/07/22, and so forth. * Completed IVIG x 5 days. Will have such again in 4 weeks around 10/09/22-pt reports SNF won't be able to do the IVIG so will beging this early prior to discharge-will d/w Rheum Increased PPI to twice daily dosing for GI prophy while on high-dose steroids. The Dermatomyositis is concerning in that this would suggest ongoing breast ca / recurrence despite previous chemo, L mastectomy, etc. Recent CT chest/abd/pelvis did not show obvious recurrence or metastatic disease although there is thickening of the left chest wall in vicinity of prior mastectomy. Recent bone scan was negative for skeletal mets. Prognosis remains guarded. Appreciate Dr Jackson, rheum consult. Appreciate Dr Cobb consult - intermittently patient has expressed that perhaps she would want to forego routine care and switch to a comfort-based approach to her care. For now, she tells me her goal is to get strong enough to walk to a bedside commode (2) Acute respiratory failure with hypoxia: Plan: resolved 2nd to aspiration pneumonia b/l had 10+ days of IV broad-spectrum abx continue NPO status, aspirtion precautions with tube feeds (3) Bilateral pneumonia: Plan: b/l lower lobe. 2nd aspiration. resolved. (4) Dermatomyositis with respiratory involvement: Plan: see above cause of progressive prox muscle weakness, dysphagia, rash, etc. rash component has resolved weakness modestly better in comparison to 1-2 weeks ago unfortunately dysphagia remains based on most recent video swallow (09/24/22) Dr Jackson's consult earlier this stay much appreciated (5) Breast cancer: Plan: left sided stage 3 at diagnosis s/p chemo/XRT last spring/summer, followed by mastectomy 06/[address]arias extensive CT imaging and bone scan without obvious recurrence/mets although most recent CT chest with "thickening" of left chest wall noted (6) Severe protein-calorie malnutrition: Plan: ongoing, present since spring 2021 in the setting of newly diagnosed breast ca and neoadjuvant chemo/radiation during that time period. s/p PEG tube placement 01/2022. cont peptamen 1.5 at 65cc/hr during daylight hours. 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 baseline Na level about 130 Na levels remain stable and acceptable Na level stable at 132 (9) Chronic obstructive pulmonary disease: Plan: stable duonebs and saline nebs prn O2 sats wnl lungs clear guaifenesin 100mg via PEG QID to help with mucous (10) Acute metabolic encephalopathy: Plan: resolved although groggy/sleepy/slurry speech -- likely 2nd to IV dilaudid + clonazepam stopped dialudid and now on [place] prn, doing better added low dose prn of clonazepam back on only at bedtime at pt request (11) Dysphagia: Plan: 2nd to oropharyngeal involvement from dermatomyositis see above re: steroids, IVIG, etc strict NPO unless she decides to transition to comfort care - at that time would liberalize her PO intake recent video swallow test results reviewed (12) Diarrhea: Plan: multiple c. diff tests negative 2nd to tube feedings, altered bowel enma in midst of recent broad-spectrum antibiotics, etc Still ongoing but improved with increased dose of imodium -added on Lomotil prn -continue loperamide 2mg QID via PEG (13) Insomnia: Plan: insomnia, adjustment issues, depression -- cont remeron 7.5mg HS -add back on low dose klonopin 0.25mg hs prn at pt's request -increase buspar to 7.5mg po tid for anxiety -hydroxyzine trialed on 10/03 and no effect (14) Anemia: Plan: anemia - Fe studies most c/w ACD Plan cont PT/OT as tolerated dispo planning - MEDICALLY STABLE FOR DISCHARGE- awaiting SNF placement-likely not till next week at [facility] Admission and Anticipated Discharge Date Admission Date: September 02, 2022 Subjective Pt had more loose stools this AM but none since then. No nausea today. Asks about getting IVIG early due to SNF not being able to offer it. Review of Systems Review of Systems: All systems reviewed & are unremarkable except as noted in HPI & below was able to sleep last night with the clonazepam Physical Exam Physical Exam: gen - comfortable, no distress, cachectic, but NAD heart - RRR, s1 s2, no murmur lungs - CTA anteriorly, decreased BS at right base; no wheeze or rales or distress chest - a-port clean abd - soft NT ND BS+; scaphoid abdomen, PEG tube site clean ext - no edema psych - a/o x 3, flat affect Results & Data Results & Data ([facility]) Vital Signs (Past 12 Hours) Vital Signs Temp Pulse Resp BP Pulse Ox O2 Del Method 10/04/22 22:45 36.4 C L 71 16 131/72 94 Room Air 10/04/22 20:00 Room Air 10/04/22 14:27 36.6 C 79 16 126/73 94 Room Air Laboratory Results 10/04/22 10/04/22 Range/Units 06:31 06:31 WBC 7.21 (4.8-10.8) K/ul RBC 2.75 L (3.93-5.22) M/uL Hgb 8.9 L (12.0-16.0) g/dl Hct 26.6 L (34.1-44.9) % MCV 96.7 (80.0-100.0) fL MCH 32.4 (25.0-34.0) pg MCHC 33.5 (32.0-36.0) g/dL RDW Std Deviation 61.1 H (36.4-46.3) fL RDW Coeff of Emil 17.2 H (11.5-14.5) % Plt Count (130-400) K/uL MPV (9.4-12.3) fL Immature Gran % (Auto) 1.5 % Neut % (Auto) 66.2 % Lymph % (Auto) 17.8 % Hardy % (Auto) 12.5 % Eos % (Auto) 1.9 % Baso % (Auto) 0.1 % Neut # (Auto) 4.77 (1.4-6.5) K/uL Lymph # (Auto) 1.28 (1.2-3.4) K/uL Hardy # (Auto) 0.90 H (0.24-0.82) K/uL Eos # (Auto) 0.14 (0-0.50) K/uL Baso # (Auto) 0.01 (0-0.2) K/uL Immature Gran # (Auto) 0.11 H (0.00-0.02) K/uL Platelet Estimate Normal (Normal) Sodium 132 L (136-145) mmol/L Potassium 4.6 (3.5-5.1) mmol/L Chloride 98 (98-107) mmol/L Carbon Dioxide 30 (21-32) mmol/L Anion Gap 4 (3-11) BUN 40 H (6-23) mg/dl Creatinine 0.53 L (0.6-1.2) mg/dl Est Cr Clr Drug Dosing 53.0 ml/min Est GFR ( Amer) 109.2 ml/min Est GFR (Non-Af Amer) 94.2 ml/min BUN/Creatinine Ratio 75.5 H (10-20) Glucose 85 (70-99(Fasting)) mg/dl Calcium 8.8 (8.5-10.1) mg/dl Phosphorus 3.1 (2.5-4.9) mg/dl Magnesium 1.7 (1.7-2.4) mg/dl PG Care Time/CCT Total # of Minutes Spent Total Time Spent with Patient: Total time spent is greater than 50% in coordination of care (as documented) at patient's floor/unit and/or counseling patient: Coding Level of Care Code 36053 SUB INP/OBS CARE 235MIN Diagnoses Myositis M60.9 Acute respiratory failure with hypoxia J96.01 Bilateral pneumonia J18.9 Dermatomyositis with respiratory involvement M33.91 Breast cancer C50.912 Breast location: unspecified site of breast Estrogen receptor status: unspecified Patient sex: female Laterality: left Severe protein-calorie malnutrition E43 Hypertension I10 Hypertension type: primary hypertension Hyponatremia E87.1 Chronic obstructive pulmonary disease J44.9 Acute metabolic encephalopathy G93.41 Dysphagia R13.10 Diarrhea R19.7 Insomnia G47.00 Anemia D64.9 (1) Breast cancer Breast location: unspecified site of breast Estrogen receptor status: unspecified Patient sex: female Laterality: left Qualified Code(s): C50.912 - Malignant neoplasm of unspecified site of left female breast (2) Hypertension Hypertension type: primary hypertension Qualified Code(s): I10 - Essential (primary) hypertension
[2022-10-05] MEDS ORDERED: clonazePAM 0.5 MG TAB PO STA (01:43)
[2022-10-05] MEDS: LANSOPRAZOLE 30 MG SOLTAB PEG SCH ×2 (05:21→20:58)
[2022-10-05] MEDS: TUBE FEEDING WATER FLUSH PEG SCH ×3 (05:25→17:01)
[2022-10-05] MEDS: PEPTAMEN 1.5 CAL 1,000 ML BAG PEG SCH (05:28)
[2022-10-05] MEDS: busPIRone 5 MG TAB PEG SCH ×3 (09:05→20:59)
[2022-10-05] MEDS: METOPROLOL TARTRATE 25 MG TAB PO SCH ×2 (09:05→20:59)
[2022-10-05] MEDS: predniSONE 50 MG TAB PEG SCH (09:05)
[2022-10-05] MEDS: CYANOCOBALAMIN (B-12) 500 MCG TABLET PEG SCH (09:06)
[2022-10-05] MEDS: ENOXAPARIN INJ 30 MG/0.3 ML SYR SQ SCH (09:06)
[2022-10-05] MEDS: DULoxetine HCL 30 MG CAP PO SCH (09:06)
[2022-10-05] MEDS: guaiFENesin SUGAR FREE 100 MG/5 ML UDC GT SCH ×4 (09:06→20:58)
[2022-10-05] MEDS: LOPERAMIDE LIQUID 120 ML BOTTLE PEG SCH ×4 (09:07→21:00)
[2022-10-05] MEDS: MULTI VIT W/MINERALS LIQUID 15 ML UDP PEG SCH (09:07)
[2022-10-05] MEDS: ACETAMINOPHEN/HYDROcodone ELIX 15 ML/CUP PO PRN ×2 (10:27→17:06)
[2022-10-05] MEDS: HEPARIN 100 UNIT/ML 5ML FLUSH FLUSH PRN (10:28)
[2022-10-05] MEDS: ACETAMINOPHEN 325 MG TAB PEG PRN (11:30)
[2022-10-05] MEDS ORDERED: HYDROmorphone INJ 0.5 MG/0.5 ML SYR IV STA (14:35)
--- NOTE | 2022-10-05 19:13 | Hospitalist Progress Note ---
Date of Service October 05, 2022 Assessment & Plan (1) Myositis: Plan: During her 06/2022 to 07/2022 prolonged hospitalization she underwent an extensive work-up looking for her b/l LE weakness and back pain. Most of her weakness was of the hip girdle muscles. She underwent MRIs of the spine along with extensive blood work. She was on empiric steroids (Dexamethasone) at that time. CPK was mildly elevated but aldolase was wnl. CRP was 0. She was evaluated by [facility] during the prior hospitalization. Her LE weakness gradually improved during that hospital stay and she was walking nearly 100 feet by time of discharge. Studies for myasthenia gravis, autoimmune disease (SUE, etc), and other neurological conditions were dispatched. She had f/u with [facility] shortly after discharge. EMGs of all 4 limbs were being planned. Her weakness progressed over July into August; she ultimately was readmitted on 09/02/22. MRIs of b/l thighs showed significant inflammation of the thigh muscles. She underwent a right thigh muscle bx on 09/06/22 by general surgery; results most c/w dermatomyositis. 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 This is c/w dermatomyositis. Dysphagia is due to her dermatomyositis. Therapies for her DM while here: * Solumedrol 125mg IV BID -- Completed 6 days of such. * Was briefly on prednisone; back to once daily solumedrol; now back to PO prednisone 09/23/22. Plan 2 weeks of 50mg, then 2 weeks of 40mg starting 10/07/22, and so forth. * Completed IVIG x 5 days. Will have such again in 4 weeks around 10/09/22-pt reports SNF won't be able to do the IVIG so will begin this early prior to discharge-I did d/w Rheum-plan to start IVIG 2grams/kg of IBW divided by 3 days on 10/08-10/10 Increased PPI to twice daily dosing for GI prophy while on high-dose steroids. The Dermatomyositis is concerning in that this would suggest ongoing breast ca / recurrence despite previous chemo, L mastectomy, etc. Recent CT chest/abd/pelvis did not show obvious recurrence or metastatic disease although there is thickening of the left chest wall in vicinity of prior mastectomy. Recent bone scan was negative for skeletal mets. Prognosis remains guarded. Appreciate Dr Davis, rheum consult. Pt and daughter would like to discuss treatment plan in more detail with Dr. Davis on Saturday-they have questions I cannot answer Appreciate Dr Cobb consult - intermittently patient has expressed that perhaps she would want to forego routine care and switch to a comfort-based approach to her care. For now, she tells me her goal is to get strong enough to walk to a bedside commode (2) Acute respiratory failure with hypoxia: Plan: resolved 2nd to aspiration pneumonia b/l had 10+ days of IV broad-spectrum abx continue NPO status, aspirtion precautions with tube feeds (3) Bilateral pneumonia: Plan: b/l lower lobe. 2nd aspiration. resolved. (4) Dermatomyositis with respiratory involvement: Plan: see above cause of progressive prox muscle weakness, dysphagia, rash, etc. rash component has resolved weakness modestly better in comparison to 1-2 weeks ago unfortunately dysphagia remains based on most recent video swallow (09/24/22) Dr Davis's consult earlier this stay much appreciated (5) Breast cancer: Plan: left sided stage 3 at diagnosis s/p chemo/XRT last spring/summer, followed by mastectomy 06/[address]arias extensive CT imaging and bone scan without obvious recurrence/mets although most recent CT chest with "thickening" of left chest wall noted (6) Severe protein-calorie malnutrition: Plan: ongoing, present since spring 2021 in the setting of newly diagnosed breast ca and neoadjuvant chemo/radiation during that time period. s/p PEG tube placement 01/2022. cont peptamen 1.5 at 65cc/hr during daylight hours. 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 baseline Na level about 130 Na levels remain stable and acceptable Na level stable at 132 (9) Chronic obstructive pulmonary disease: Plan: stable duonebs and saline nebs prn O2 sats wnl lungs clear guaifenesin 100mg via PEG QID to help with mucous (10) Acute metabolic encephalopathy: Plan: resolved except when receives IV dilaudid although groggy/sleepy/slurry speech -- likely 2nd to IV dilaudid + clonazepam stopped dialudid except gave a prn dose for severe pain in lower back on 10/05 now on [place] prn added low dose prn of clonazepam back on only at bedtime at pt request (11) Dysphagia: Plan: 2nd to oropharyngeal involvement from dermatomyositis see above re: steroids, IVIG, etc strict NPO unless she decides to transition to comfort care - at that time would liberalize her PO intake recent video swallow test results reviewed (12) Diarrhea: Plan: multiple c. diff tests negative 2nd to tube feedings, altered bowel enma in midst of recent broad-spectrum antibiotics, etc Still ongoing but improved with increased dose of imodium -added on Lomotil bid prn -continue loperamide 2mg QID via PEG (13) Insomnia: Plan: insomnia, adjustment issues, depression -- cont remeron 7.5mg HS -add back on low dose klonopin 0.25mg hs prn at pt's request -increased buspar to 7.5mg po tid for anxiety -hydroxyzine trialed on 10/03 and no effect (14) Anemia: Plan: anemia - Fe studies most c/w ACD Plan cont PT/OT as tolerated dispo planning - MEDICALLY STABLE FOR DISCHARGE- awaiting SNF placement-likely not till next week at [facility] Had 35 min discussion with patient and daughter today regarding prognosis, treat ment plan Admission and Anticipated Discharge Date Admission Date: September 02, 2022 Subjective Pt had several loose stools today and had increased lower back pain from using bed trevizo. [place] was not helping. Gave one dose of dilaudid 0.25mg IV and pt was then somewhat confused at times, talking about going upstairs in her house and asking me if I performed surgery today, etc. She was redirectable. She asks about her prognosis Review of Systems Review of Systems: All systems reviewed & are unremarkable except as noted in HPI & below Physical Exam Physical Exam: gen - comfortable, no distress, cachectic, but NAD, mild confusion heart - RRR, s1 s2, no murmur lungs - CTA anteriorly, decreased BS at right base; no wheeze or rales or distress chest - a-port clean abd - soft NT ND BS+; scaphoid abdomen, PEG tube site clean ext - no edema psych - alert,awake, oriented x 2 Results & Data Results & Data ([facility]) Vital Signs (Past 12 Hours) Vital Signs Temp Pulse Resp BP Pulse Ox O2 Del Method 10/05/22 15:20 36.4 C L 80 16 119/68 96 Room Air 10/05/22 08:00 Room Air 10/05/22 07:08 36.5 C 79 16 130/73 96 Room Air PG Care Time/CCT Total # of Minutes Spent Total Time Spent with Patient: Total time spent is greater than 50% in coordination of care (as documented) at patient's floor/unit and/or counseling patient: Coding Level of Care Code 58052 SUB INP/OBS CARE 2/35MIN Diagnoses Myositis M60.9 Acute respiratory failure with hypoxia J96.01 Bilateral pneumonia J18.9 Dermatomyositis with respiratory involvement M33.91 Breast cancer C50.912 Breast location: unspecified site of breast Estrogen receptor status: unspecified Patient sex: female Laterality: left Severe protein-calorie malnutrition E43 Hypertension I10 Hypertension type: primary hypertension Hyponatremia E87.1 Chronic obstructive pulmonary disease J44.9 Acute metabolic encephalopathy G93.41 Dysphagia R13.10 Diarrhea R19.7 Insomnia G47.00 Anemia D64.9 (1) Breast cancer Breast location: unspecified site of breast Estrogen receptor status: unspecified Patient sex: female Laterality: left Qualified Code(s): C50.912 - Malignant neoplasm of unspecified site of left female breast (2) Hypertension Hypertension type: primary hypertension Qualified Code(s): I10 - Essential (primary) hypertension
[2022-10-05] MEDS: MIRTAZAPINE SOLTAB 15 MG PO SCH (20:58)
[2022-10-06] MEDS: TUBE FEEDING WATER FLUSH PEG SCH ×4 (00:54→17:02)
[2022-10-06] MEDS: MELATONIN 3 MG TAB PO PRN ×2 (01:06→20:50)
[2022-10-06] MEDS: clonazePAM 0.25 MG TAB GT PRN (01:06)
[2022-10-06] MEDS: ACETAMINOPHEN/HYDROcodone ELIX 15 ML/CUP PO PRN ×2 (02:57→20:50)
[2022-10-06] MEDS: LANSOPRAZOLE 30 MG SOLTAB PEG SCH ×2 (05:45→20:55)
[2022-10-06] MEDS: PEPTAMEN 1.5 CAL 1,000 ML BAG PEG SCH (05:45)
[2022-10-06 06:34] LABS: Albumin Globulin Ratio 0.9 (0.9-2); Bilirubin,Total 0.3 mg/dl (0.2-1.0); Calcium 8.7 mg/dl (8.5-10.1); Creatinine Clr Calc Pharmacy 56.2 ml/min; Est GFR (African American) 111.3 ml/min; Globulin 3.2 gm/dl (2.5-4.0); Magnesium 1.7 mg/dl (1.7-2.4); Phosphorus 3.4 mg/dl (2.5-4.9); Potassium 4.6 mmol/L (3.5-5.1); Total Protein 6.2 gm/dl (6.0-8.3)
[2022-10-06 06:57] LABS: Hemoglobin 8.8 g/dl (12.0-16.0); Mean Corpuscular Hemoglobin 31.9 pg (25.0-34.0); Mean Corpuscular Hgb Conc 32.6 g/dL (32.0-36.0); Mean Corpuscular Volume 97.8 fL (80.0-100.0); RDW Coefficient of Variation 17.2 % (11.5-14.5); RDW Standard Deviation 61.6 fL (36.4-46.3); Red Blood Count 2.76 M/uL (3.93-5.22)
[2022-10-06 06:58] LABS: Basophils # (auto) 0.01 K/uL (0-0.2); Basophils % (auto) 0.1 %; Eosinophils # (auto) 0.13 K/uL (0-0.50); Eosinophils % (auto) 1.7 %; Immature Granulocytes # (auto) 0.09 K/uL (0.00-0.02); Immature Granulocytes % (auto) 1.2 %; Lymphocytes # (auto) 1.14 K/uL (1.2-3.4); Monocytes # (auto) 1.03 K/uL (0.24-0.82); Monocytes % (auto) 13.6 %; Neutrophils % (auto) 68.4 %
[2022-10-06] MEDS: HEPARIN 100 UNIT/ML 5ML FLUSH FLUSH PRN (08:13)
[2022-10-06] MEDS: LOPERAMIDE LIQUID 120 ML BOTTLE PEG SCH ×4 (09:25→20:55)
[2022-10-06] MEDS: MULTI VIT W/MINERALS LIQUID 15 ML UDP PEG SCH (09:26)
[2022-10-06] MEDS: ENOXAPARIN INJ 30 MG/0.3 ML SYR SQ SCH (09:26)
[2022-10-06] MEDS: guaiFENesin SUGAR FREE 100 MG/5 ML UDC GT SCH ×4 (09:26→20:56)
[2022-10-06] MEDS: predniSONE 50 MG TAB PEG SCH (09:27)
[2022-10-06] MEDS: busPIRone 5 MG TAB PEG SCH ×3 (09:27→20:53)
[2022-10-06] MEDS: DULoxetine HCL 30 MG CAP PO SCH (09:27)
[2022-10-06] MEDS: METOPROLOL TARTRATE 25 MG TAB PO SCH ×2 (09:27→20:54)
[2022-10-06] MEDS: CYANOCOBALAMIN (B-12) 500 MCG TABLET PEG SCH (09:27)
[2022-10-06] MEDS: ACETAMINOPHEN 325 MG TAB PEG PRN (09:29)
[2022-10-06] MEDS: DIPHENOXYLATE/ATROPINE 2.5/0.025MG 5ML PEG SCH ×2 (10:33→20:56)
[2022-10-06] MEDS ORDERED: clonazePAM 0.25 MG TAB PO STA (13:32)
--- NOTE | 2022-10-06 19:22 | Hospitalist Progress Note ---
Date of Service October 06, 2022 Assessment & Plan (1) Myositis: Plan: During her 06/2022 to 07/2022 prolonged hospitalization she underwent an extensive work-up looking for her b/l LE weakness and back pain. Most of her weakness was of the hip girdle muscles. She underwent MRIs of the spine along with extensive blood work. She was on empiric steroids (Dexamethasone) at that time. CPK was mildly elevated but aldolase was wnl. CRP was 0. She was evaluated by [facility] during the prior hospitalization. Her LE weakness gradually improved during that hospital stay and she was walking nearly 100 feet by time of discharge. Studies for myasthenia gravis, autoimmune disease (SUE, etc), and other neurological conditions were dispatched. She had f/u with [facility] shortly after discharge. EMGs of all 4 limbs were being planned. Her weakness progressed over July into August; she ultimately was readmitted on 09/02/22. MRIs of b/l thighs showed significant inflammation of the thigh muscles. She underwent a right thigh muscle bx on 09/06/22 by general surgery; results most c/w dermatomyositis. 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 This is c/w dermatomyositis. Dysphagia is due to her dermatomyositis. Therapies for her DM while here: * Solumedrol 125mg IV BID -- Completed 6 days of such. * Was briefly on prednisone; back to once daily solumedrol; now back to PO prednisone 09/23/22. Plan 2 weeks of 50mg, then 2 weeks of 40mg starting 10/07/22, and so forth. * Completed IVIG x 5 days. Will have such again in 4 weeks around 10/09/22-pt reports SNF won't be able to do the IVIG so will begin this early prior to discharge-I did d/w Rheum-plan to start IVIG 2grams/kg of IBW divided by 3 days on 10/08-10/10 Increased PPI to twice daily dosing for GI prophy while on high-dose steroids. The Dermatomyositis is concerning in that this would suggest ongoing breast ca / recurrence despite previous chemo, L mastectomy, etc. Recent CT chest/abd/pelvis did not show obvious recurrence or metastatic disease although there is thickening of the left chest wall in vicinity of prior mastectomy. Recent bone scan was negative for skeletal mets. Prognosis remains guarded. Appreciate Dr Davis, rheum consult. Pt and daughter would like to discuss treatment plan in more detail with Dr. Davis on Saturday-they have questions I cannot answer Appreciate Dr Cobb consult - intermittently patient has expressed that perhaps she would want to forego routine care and switch to a comfort-based approach to her care. For now, she tells me her goal is to get strong enough to walk to a bedside commode (2) Acute respiratory failure with hypoxia: Plan: resolved 2nd to aspiration pneumonia b/l had 10+ days of IV broad-spectrum abx continue NPO status, aspirtion precautions with tube feeds (3) Bilateral pneumonia: Plan: b/l lower lobe. 2nd aspiration. resolved. (4) Dermatomyositis with respiratory involvement: Plan: see above cause of progressive prox muscle weakness, dysphagia, rash, etc. rash component has resolved weakness modestly better in comparison to 1-2 weeks ago unfortunately dysphagia remains based on most recent video swallow (09/24/22) Dr Davis's consult earlier this stay much appreciated (5) Breast cancer: Plan: left sided stage 3 at diagnosis s/p chemo/XRT last spring/summer, followed by mastectomy 06/[address]arias extensive CT imaging and bone scan without obvious recurrence/mets although most recent CT chest with "thickening" of left chest wall noted (6) Severe protein-calorie malnutrition: Plan: ongoing, present since spring 2021 in the setting of newly diagnosed breast ca and neoadjuvant chemo/radiation during that time period. s/p PEG tube placement 01/2022. cont peptamen 1.5 at 65cc/hr during daylight hours. 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 baseline Na level about 130 Na levels remain stable and acceptable Na level stable/improved at 133 continue same free water flushes (9) Chronic obstructive pulmonary disease: Plan: stable duonebs and saline nebs prn O2 sats wnl lungs clear guaifenesin 100mg via PEG QID to help with mucous (10) Acute metabolic encephalopathy: Plan: resolved except when receives IV dilaudid although groggy/sleepy/slurry speech -- likely 2nd to IV dilaudid + clonazepam stopped dialudid except gave a prn dose for severe pain in lower back on 10/05 now on [place] prn added low dose prn of clonazepam back on only at bedtime at pt request (11) Dysphagia: Plan: 2nd to oropharyngeal involvement from dermatomyositis see above re: steroids, IVIG, etc strict NPO unless she decides to transition to comfort care - at that time would liberalize her PO intake recent video swallow test results reviewed (12) Diarrhea: Plan: multiple c. diff tests negative 2nd to tube feedings, altered bowel enma in midst of recent broad-spectrum antibiotics, etc Still ongoing but improved with increased dose of imodium -added on Lomotil bid prn -continue loperamide 2mg QID via PEG (13) Insomnia: Plan: insomnia, adjustment issues, depression -- cont remeron 7.5mg HS -added back on low dose klonopin 0.25mg hs prn at pt's request -increased buspar to 7.5mg po tid for anxiety -hydroxyzine trialed on 10/03 and no effect (14) Anemia: Plan: anemia - Fe studies most c/w ACD Plan cont PT/OT as tolerated dispo planning - MEDICALLY STABLE FOR DISCHARGE- awaiting SNF placement-likely not till next week at [facility] Admission and Anticipated Discharge Date Admission Date: September 02, 2022 Subjective Had some loose stools this AM but better throughout the day after taking Lomotil and Imodium. [place] very anxious earlier today and took clonazepam which helped somewhat. Low back pain is controlled Review of Systems Review of Systems: All systems reviewed & are unremarkable except as noted in HPI & below Physical Exam Physical Exam: gen - comfortable, no distress, cachectic, but NAD, mild confusion heart - RRR, s1 s2, no murmur lungs - CTA anteriorly, decreased BS at right base; no wheeze or rales or distress, some coarse BS with cough chest - a-port clean abd - soft NT ND BS+; scaphoid abdomen, PEG tube site clean ext - no edema psych - alert,awake, oriented x 2 Results & Data Results & Data ([facility]) Vital Signs (Past 12 Hours) Vital Signs Temp Pulse Resp BP Pulse Ox O2 Del Method 10/06/22 15:22 36.5 C 77 14 120/69 95 Room Air 10/06/22 09:34 Room Air 10/06/22 10:17 36.5 C 68 16 109/67 97 Room Air 10/06/22 07:39 36.9 C 79 16 126/68 96 Room Air Laboratory Results 10/06/22 10/06/22 10/06/22 Range/Units 05:38 05:38 05:38 WBC 7.60 (4.8-10.8) K/ul RBC 2.76 L (3.93-5.22) M/uL Hgb 8.8 L (12.0-16.0) g/dl Hct 27.0 L (34.1-44.9) % MCV 97.8 (80.0-100.0) fL MCH 31.9 (25.0-34.0) pg MCHC 32.6 (32.0-36.0) g/dL RDW Std Deviation 61.6 H (36.4-46.3) fL RDW Coeff of Emil 17.2 H (11.5-14.5) % Plt Count (130-400) K/uL MPV (9.4-12.3) fL Immature Gran % (Auto) 1.2 % Neut % (Auto) 68.4 % Lymph % (Auto) 15.0 % [place] % (Auto) 13.6 % Eos % (Auto) 1.7 % Baso % (Auto) 0.1 % Neut # (Auto) 5.20 (1.4-6.5) K/uL Lymph # (Auto) 1.14 L (1.2-3.4) K/uL [place] # (Auto) 1.03 H (0.24-0.82) K/uL Eos # (Auto) 0.13 (0-0.50) K/uL Baso # (Auto) 0.01 (0-0.2) K/uL Immature Gran # (Auto) 0.09 H (0.00-0.02) K/uL Plt Count ,Citrate 216 (130-400) K/uL Sodium 133 L (136-145) mmol/L Potassium 4.6 (3.5-5.1) mmol/L Chloride 98 (98-107) mmol/L Carbon Dioxide 30 (21-32) mmol/L Anion Gap 5 (3-11) BUN 38 H (6-23) mg/dl Creatinine 0.50 L (0.6-1.2) mg/dl Est Cr Clr Drug Dosing 56.2 ml/min Est GFR ( Amer) 111.3 ml/min Est GFR (Non-Af Amer) 96.0 ml/min BUN/Creatinine Ratio 76.0 H (10-20) Glucose 87 (70-99(Fasting)) mg/dl Calcium 8.7 (8.5-10.1) mg/dl Phosphorus 3.4 (2.5-4.9) mg/dl Magnesium 1.7 (1.7-2.4) mg/dl Total Bilirubin 0.3 (0.2-1.0) mg/dl AST 22 (13-39) U/L ALT 45 (7-52) U/L Alkaline Phosphatase 49 (34-104) U/L Total Protein 6.2 (6.0-8.3) gm/dl Albumin 3.0 L (3.4-5.0) gm/dl Globulin 3.2 (2.5-4.0) gm/dl Albumin/Globulin Ratio 0.9 (0.9-2) PG Care Time/CCT Total # of Minutes Spent Total Time Spent with Patient: Total time spent is greater than 50% in coordination of care (as documented) at patient's floor/unit and/or counseling patient: Coding Level of Care Code 35223 SUB INP/OBS CARE 10/17MIN Diagnoses Myositis M60.9 Acute respiratory failure with hypoxia J96.01 Bilateral pneumonia J18.9 Dermatomyositis with respiratory involvement M33.91 Breast cancer C50.912 Breast location: unspecified site of breast Estrogen receptor status: unspecified Laterality: left Patient sex: female Severe protein-calorie malnutrition E43 Hypertension I10 Hypertension type: primary hypertension Hyponatremia E87.1 Chronic obstructive pulmonary disease J44.9 Acute metabolic encephalopathy G93.41 Dysphagia R13.10 Diarrhea R19.7 Insomnia G47.00 Anemia D64.9 (1) Breast cancer Breast location: unspecified site of breast Estrogen receptor status: unspecified Laterality: left Patient sex: female Qualified Code(s): C50.912 - Malignant neoplasm of unspecified site of left female breast (2) Hypertension Hypertension type: primary hypertension Qualified Code(s): I10 - Essential (primary) hypertension
[2022-10-06] MEDS: MIRTAZAPINE SOLTAB 15 MG PO SCH (20:52)
[2022-10-07] MEDS: TUBE FEEDING WATER FLUSH PEG SCH ×5 (00:19→23:08)
[2022-10-07] MEDS: clonazePAM 0.25 MG TAB GT PRN ×3 (03:57→21:24)
[2022-10-07] MEDS: PEPTAMEN 1.5 CAL 1,000 ML BAG PEG SCH (05:40)
[2022-10-07] MEDS: LANSOPRAZOLE 30 MG SOLTAB PEG SCH ×2 (05:40→21:25)
[2022-10-07] MEDS: HEPARIN 100 UNIT/ML 5ML FLUSH FLUSH PRN (08:14)
[2022-10-07] MEDS: METOPROLOL TARTRATE 25 MG TAB PO SCH ×2 (09:29→21:26)
[2022-10-07] MEDS: guaiFENesin SUGAR FREE 100 MG/5 ML UDC GT SCH ×4 (09:29→21:27)
[2022-10-07] MEDS: DULoxetine HCL 30 MG CAP PO SCH (09:29)
[2022-10-07] MEDS: busPIRone 5 MG TAB PEG SCH ×3 (09:29→21:26)
[2022-10-07] MEDS: CYANOCOBALAMIN (B-12) 500 MCG TABLET PEG SCH (09:29)
[2022-10-07] MEDS: predniSONE 50 MG TAB PEG SCH (09:29)
[2022-10-07] MEDS: ENOXAPARIN INJ 30 MG/0.3 ML SYR SQ SCH (09:30)
[2022-10-07] MEDS: LOPERAMIDE LIQUID 120 ML BOTTLE PEG SCH ×4 (09:30→22:11)
[2022-10-07] MEDS: MULTI VIT W/MINERALS LIQUID 15 ML UDP PEG SCH (09:30)
[2022-10-07] MEDS: DIPHENOXYLATE/ATROPINE 2.5/0.025MG 5ML PEG SCH ×2 (09:40→22:12)
--- NOTE | 2022-10-07 12:03 | Hospitalist Progress Note ---
Date of Service October 07, 2022 Assessment & Plan (1) Myositis: Plan: During her 06/2022 to 07/2022 prolonged hospitalization she underwent an extensive work-up looking for her b/l LE weakness and back pain. Most of her weakness was of the hip girdle muscles. She underwent MRIs of the spine along with extensive blood work. She was on empiric steroids (Dexamethasone) at that time. CPK was mildly elevated but aldolase was wnl. CRP was 0. She was evaluated by [facility] during the prior hospitalization. Her LE weakness gradually improved during that hospital stay and she was walking nearly 100 feet by time of discharge. Studies for myasthenia gravis, autoimmune disease (SUE, etc), and other neurological conditions were dispatched. She had f/u with [facility] shortly after discharge. EMGs of all 4 limbs were being planned. Her weakness progressed over July into August; she ultimately was readmitted on 09/02/22. MRIs of b/l thighs showed significant inflammation of the thigh muscles. She underwent a right thigh muscle bx on 09/06/22 by general surgery; results most c/w dermatomyositis. 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 This is c/w dermatomyositis. Dysphagia is due to her dermatomyositis. Therapies for her DM while here: * Solumedrol 125mg IV BID -- Completed 6 days of such. * Was briefly on prednisone; back to once daily solumedrol; now back to PO prednisone 09/23/22. Plan 2 weeks of 50mg, then 2 weeks of 40mg, and so forth.Decreased to 40mg daily on 10/08 * Completed IVIG x 5 days. Will have such again in 4 weeks around 10/09/22-pt reports SNF won't be able to do the IVIG so will begin this early prior to discharge-I did d/w Rheum-plan to start IVIG 2grams/kg of IBW divided by 3 days on 10/08-10/10 Increased PPI to twice daily dosing for GI prophy while on high-dose steroids. The Dermatomyositis is concerning in that this would suggest ongoing breast ca / recurrence despite previous chemo, L mastectomy, etc. Recent CT chest/abd/pelvis did not show obvious recurrence or metastatic disease although there is thickening of the left chest wall in vicinity of prior mastectomy. Recent bone scan was negative for skeletal mets. Prognosis remains guarded. Appreciate Dr Davis, rheum consult. Pt and daughter would like to discuss treatment plan in more detail with Dr. Davis on Saturday-they have questions I cannot answer Appreciate Dr Cobb consult - intermittently patient has expressed that perhaps she would want to forego routine care and switch to a comfort-based approach to her care. For now, she tells me her goal is to get strong enough to walk to a bedside commode (2) Acute respiratory failure with hypoxia: Plan: resolved 2nd to aspiration pneumonia b/l had 10+ days of IV broad-spectrum abx continue NPO status, aspirtion precautions with tube feeds (3) Bilateral pneumonia: Plan: b/l lower lobe. 2nd aspiration. resolved. (4) Dermatomyositis with respiratory involvement: Plan: see above cause of progressive prox muscle weakness, dysphagia, rash, etc. rash component has resolved weakness modestly better in comparison to 1-2 weeks ago unfortunately dysphagia remains based on most recent video swallow (09/24/22) Dr Davis's consult earlier this stay much appreciated (5) Breast cancer: Plan: left sided stage 3 at diagnosis s/p chemo/XRT last spring/summer, followed by mastectomy 06/[address]arias extensive CT imaging and bone scan without obvious recurrence/mets although most recent CT chest with "thickening" of left chest wall noted -consider brain MRI to assess for mets if continues to have intermittent confusion (6) Severe protein-calorie malnutrition: Plan: ongoing, present since spring 2021 in the setting of newly diagnosed breast ca and neoadjuvant chemo/radiation during that time period. s/p PEG tube placement 01/2022. cont peptamen 1.5 at 65cc/hr during daylight hours. 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 baseline Na level about 130 Na levels remain stable and acceptable Na level stable/improved at 133 Current total free water daily with TFs+ free water flushes and flushes for meds= 1350mL as per Dietary notes decrease free water flushes to 50 mL q6h to reduce total free water to 1150mL follow BMP (9) Chronic obstructive pulmonary disease: Plan: stable duonebs and saline nebs prn O2 sats wnl lungs clear guaifenesin 100mg via PEG QID to help with mucous (10) Acute metabolic encephalopathy: Plan: resolved except when receives IV dilaudid although groggy/sleepy/slurry speech -- likely 2nd to IV dilaudid + clonazepam stopped dialudid except gave a prn dose for severe pain in lower back on 10/05 now on [place] prn added low dose prn of clonazepam back on only at bedtime at pt request -as above, consider brain MRI to look for mets if continues -hyponatremia could be contributing? (11) Dysphagia: Plan: 2nd to oropharyngeal involvement from dermatomyositis see above re: steroids, IVIG, etc strict NPO unless she decides to transition to comfort care - at that time would liberalize her PO intake recent video swallow test results reviewed (12) Diarrhea: Plan: multiple c. diff tests negative 2nd to tube feedings, altered bowel enma in midst of recent broad-spectrum antibiotics, etc Still ongoing but improved with increased dose of imodium and Lomotil -added on Lomotil bid scheduled -continue loperamide 2mg QID via PEG (13) Insomnia: Plan: insomnia, adjustment issues, depression -- cont remeron 7.5mg HS -added back on low dose klonopin 0.25mg hs prn at pt's request -increased buspar to 7.5mg po tid for anxiety -hydroxyzine trialed on 10/03 and no effect (14) Anemia: Plan: anemia - Fe studies most c/w ACD Plan cont PT/OT as tolerated dispo planning - MEDICALLY STABLE FOR DISCHARGE- awaiting SNF placement-likely not till next week at [facility] Admission and Anticipated Discharge Date Admission Date: September 02, 2022 Subjective Pt had to use the bedpan when I came in. Has no complaints otherwise, pain is controlled. Review of Systems Review of Systems: All systems reviewed & are unremarkable except as noted in HPI & below Physical Exam Physical Exam: gen - comfortable, no distress, cachectic, NAD PULM-unlabored breathing chest - a-port clean ext - no edema psych - alert,awake, oriented x 3 Results & Data Results & Data ([facility]) Vital Signs (Past 12 Hours) Vital Signs Temp Pulse Resp BP Pulse Ox O2 Del Method 10/07/22 07:03 36.6 C 80 16 116/67 97 Room Air PG Care Time/CCT Total # of Minutes Spent Total Time Spent with Patient: Total time spent is greater than 50% in coordination of care (as documented) at patient's floor/unit and/or counseling patient: Coding Level of Care Code 85978 SUB INP/OBS CARE Diagnoses Myositis M60.9 Acute respiratory failure with hypoxia J96.01 Bilateral pneumonia J18.9 Dermatomyositis with respiratory involvement M33.91 Breast cancer C50.912 Breast location: unspecified site of breast Estrogen receptor status: unspecified Patient sex: female Laterality: left Severe protein-calorie malnutrition E43 Hypertension I10 Hypertension type: primary hypertension Hyponatremia E87.1 Chronic obstructive pulmonary disease J44.9 Acute metabolic encephalopathy G93.41 Dysphagia R13.10 Diarrhea R19.7 Insomnia G47.00 Anemia D64.9 (1) Breast cancer Breast location: unspecified site of breast Estrogen receptor status: unspecified Patient sex: female Laterality: left Qualified Code(s): C50.912 - Malignant neoplasm of unspecified site of left female breast (2) Hypertension Hypertension type: primary hypertension Qualified Code(s): I10 - Essential (primary) hypertension
[2022-10-07] MEDS: ACETAMINOPHEN/HYDROcodone ELIX 15 ML/CUP PO PRN (16:48)
[2022-10-07] MEDS: MIRTAZAPINE SOLTAB 15 MG PO SCH (21:25)
[2022-10-08] MEDS: MELATONIN 3 MG TAB PO PRN (01:06)
[2022-10-08] MEDS: ACETAMINOPHEN 325 MG TAB PEG PRN ×2 (05:27→15:36)
[2022-10-08] MEDS: LANSOPRAZOLE 30 MG SOLTAB PEG SCH ×2 (05:27→20:48)
[2022-10-08] MEDS: HEPARIN 100 UNIT/ML 5ML FLUSH FLUSH PRN (05:34)
[2022-10-08] MEDS: TUBE FEEDING WATER FLUSH PEG SCH ×4 (06:17→22:23)
[2022-10-08] MEDS: PEPTAMEN 1.5 CAL 1,000 ML BAG PEG SCH (06:17)
[2022-10-08 06:46] LABS: BUN Creatinine Ratio 84.3 (10-20); Calcium 8.7 mg/dl (8.5-10.1); Creatinine Clr Calc Pharmacy 55.1 ml/min; Est GFR (African American) 110.6 ml/min; Est GFR (Non-African American) 95.4 ml/min; Magnesium 1.7 mg/dl (1.7-2.4); Phosphorus 3.2 mg/dl (2.5-4.9); Potassium 4.5 mmol/L (3.5-5.1)
[2022-10-08] MEDS: busPIRone 5 MG TAB PEG SCH ×3 (08:07→20:47)
[2022-10-08] MEDS: METOPROLOL TARTRATE 25 MG TAB PO SCH ×2 (08:08→20:48)
[2022-10-08] MEDS: predniSONE 10 MG TABLET PEG SCH (08:09)
[2022-10-08] MEDS: CYANOCOBALAMIN (B-12) 500 MCG TABLET PEG SCH (08:09)
[2022-10-08] MEDS: MULTI VIT W/MINERALS LIQUID 15 ML UDP PEG SCH (08:10)
[2022-10-08] MEDS: DULoxetine HCL 30 MG CAP PO SCH (08:10)
[2022-10-08] MEDS: LOPERAMIDE LIQUID 120 ML BOTTLE PEG SCH ×4 (08:10→20:46)
[2022-10-08] MEDS: ENOXAPARIN INJ 30 MG/0.3 ML SYR SQ SCH (08:11)
[2022-10-08] MEDS: guaiFENesin SUGAR FREE 100 MG/5 ML UDC GT SCH ×4 (08:12→20:50)
[2022-10-08] MEDS: DIPHENOXYLATE/ATROPINE 2.5/0.025MG 5ML PEG SCH ×2 (08:12→20:49)
[2022-10-08] MEDS ORDERED: IMMUN GLOBG(IGG)/MALT/IGA OV50 100 ML IV SCH (10:00)
[2022-10-08] MEDS ORDERED: IMMUN GLOBG(IGG)/MALT/IGA OV50 200 ML IV SCH (10:30)
[2022-10-08] MEDS: clonazePAM 0.25 MG TAB GT PRN ×2 (11:44→20:48)
--- NOTE | 2022-10-08 17:43 | Hospitalist Progress Note ---
Date of Service October 08, 2022 Assessment & Plan (1) Myositis: Plan: During her 06/2022 to 07/2022 prolonged hospitalization she underwent an extensive work-up looking for her b/l LE weakness and back pain. Most of her weakness was of the hip girdle muscles. She underwent MRIs of the spine along with extensive blood work. She was on empiric steroids (Dexamethasone) at that time. CPK was mildly elevated but aldolase was wnl. CRP was 0. She was evaluated by [facility] during the prior hospitalization. Her LE weakness gradually improved during that hospital stay and she was walking nearly 100 feet by time of discharge. Studies for myasthenia gravis, autoimmune disease (SUE, etc), and other neurological conditions were dispatched. She had f/u with [facility] shortly after discharge. EMGs of all 4 limbs were being planned. Her weakness progressed over July into August; she ultimately was readmitted on 09/02/22. MRIs of b/l thighs showed significant inflammation of the thigh muscles. She underwent a right thigh muscle bx on 09/06/22 by general surgery; results most c/w dermatomyositis. 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 This is c/w dermatomyositis. Dysphagia is due to her dermatomyositis. Therapies for her DM while here: * Solumedrol 125mg IV BID -- Completed 6 days of such. * Was briefly on prednisone; back to once daily solumedrol; now back to PO prednisone 09/23/22. Had 2 weeks of 50mg, now on 2 weeks of 40mg, and so forth.Decreased to 40mg daily on 10/08 * Completed IVIG x 5 days in Aug. Now started second round of IVIG on 10/08 to continue x 3 days at 2grams/kg of IBW divided by 3 days Increased PPI to twice daily dosing for GI prophy while on high-dose steroids. The Dermatomyositis is concerning in that this would suggest ongoing breast ca / recurrence despite previous chemo, L mastectomy, etc. Recent CT chest/abd/pelvis did not show obvious recurrence or metastatic disease although there is thickening of the left chest wall in vicinity of prior mastectomy. Recent bone scan was negative for skeletal mets. Prognosis remains guarded. Appreciate Dr Davis, rheum consult. Pt and daughter would like to discuss treatment plan in more detail with Dr. Davis on Saturday-they have questions I cannot answer. Asked him to call Carleen Appreciate Dr Cobb consult - intermittently patient has expressed that perhaps she would want to forego routine care and switch to a comfort-based approach to her care. For now, she tells me her goal is to get strong enough to walk to a bedside commode (2) Acute respiratory failure with hypoxia: Plan: resolved 2nd to aspiration pneumonia b/l had 10+ days of IV broad-spectrum abx continue NPO status, aspirtion precautions with tube feeds (3) Bilateral pneumonia: Plan: b/l lower lobe. 2nd aspiration. resolved. (4) Dermatomyositis with respiratory involvement: Plan: see above cause of progressive prox muscle weakness, dysphagia, rash, etc. rash component has resolved weakness modestly better in comparison to 1-2 weeks ago unfortunately dysphagia remains based on most recent video swallow (09/24/22) Dr Davis's consult earlier this stay much appreciated (5) Breast cancer: Plan: left sided stage 3 at diagnosis s/p chemo/XRT last spring/summer, followed by mastectomy 06/[address]arias extensive CT imaging and bone scan without obvious recurrence/mets although most recent CT chest with "thickening" of left chest wall noted -consider brain MRI to assess for mets if continues to have intermittent confusion (6) Severe protein-calorie malnutrition: Plan: ongoing, present since spring 2021 in the setting of newly diagnosed breast ca and neoadjuvant chemo/radiation during that time period. s/p PEG tube placement 01/2022. cont peptamen 1.5 at 65cc/hr during daylight hours. 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 baseline Na level about 130 Na levels remain stable and acceptable Na level stable/improved at 133 Previous total free water daily with TFs+ free water flushes and flushes for meds= 1350mL as per Dietary notes decreased free water flushes to 50 mL q6h to reduce total free water to 1150mL on 10/07 follow BMP occasionally (9) Chronic obstructive pulmonary disease: Plan: stable duonebs and saline nebs prn O2 sats wnl lungs clear guaifenesin 100mg via PEG QID to help with mucous (10) Acute metabolic encephalopathy: Plan: resolved except when receives IV dilaudid stopped dialudid except gave a prn dose for severe pain in lower back on 10/05 now on [place] prn added low dose prn of clonazepam back on only at bedtime at pt request but now alsos requesting at times during day-ok to use sparingly in AM but typically only at bedtime -as above, consider brain MRI to look for mets if continues -hyponatremia could be contributing? (11) Dysphagia: Plan: 2nd to oropharyngeal involvement from dermatomyositis see above re: steroids, IVIG, etc strict NPO unless she decides to transition to comfort care - at that time would liberalize her PO intake recent video swallow test results reviewed (12) Diarrhea: Plan: multiple c. diff tests negative 2nd to tube feedings, altered bowel enma in midst of recent broad-spectrum antibiotics, etc Finally improved with increased dose of imodium and Lomotil bid -added on Lomotil bid scheduled -continue loperamide 2mg QID via PEG (13) Insomnia: Plan: insomnia, adjustment issues, depression -- cont remeron 7.5mg HS -added back on low dose klonopin 0.25mg hs prn at pt's request -increased buspar to 7.5mg po tid for anxiety -hydroxyzine trialed on 10/03 and no effect (14) Anemia: Plan: anemia - Fe studies most c/w ACD Plan cont PT/OT as tolerated dispo planning - MEDICALLY STABLE FOR DISCHARGE- bed now available at [facility] this TUESDAY 10/10. Plan to discharge her there after last dose of IVIG on Sat Admission and Anticipated Discharge Date Admission Date: September 02, 2022 Subjective Pt had anxiety this AM and was given her nighttime clonazepam somehow by nursing albeit early. She really enjoyed sleeping all day. Has not had any diarrhea all day today. Pain in lower back controlled. No pain in hands for 2 weeks. Review of Systems Review of Systems: All systems reviewed & are unremarkable except as noted in HPI & below Physical Exam Physical Exam: gen - comfortable, no distress, cachectic, NAD PULM-unlabored breathing , CTAB no wcr CV RRR no mgr chest - a-port clean ABd PEG tube in palce, +BS soft NT ND ext - no edema psych - alert,awake, oriented x 3 Results & Data Results & Data ([facility]) Vital Signs (Past 12 Hours) Vital Signs Temp Pulse Pulse Pulse Resp BP Pulse Ox 10/08/22 14:52 36.5 C 76 16 118/69 96 10/08/22 11:41 36.8 C 72 16 121/75 93 10/08/22 11:04 70 18 110/66 95 10/08/22 10:41 36.6 C 70 15 107/69 96 10/08/22 08:00 10/08/22 08:06 36.3 C L 81 16 112/74 93 O2 Del Method 10/08/22 14:52 Room Air 10/08/22 11:41 Room Air 10/08/22 11:04 Room Air 10/08/22 10:41 Room Air 10/08/22 08:00 Room Air 10/08/22 08:06 Room Air Laboratory Results 10/08/22 10/08/22 Range/Units 05:34 05:34 Sodium 133 L (136-145) mmol/L Potassium 4.5 (3.5-5.1) mmol/L Chloride 98 (98-107) mmol/L Carbon Dioxide 33 H (21-32) mmol/L Anion Gap 2 L (3-11) BUN 43 H (6-23) mg/dl Creatinine 0.51 L (0.6-1.2) mg/dl Est Cr Clr Drug Dosing 55.1 ml/min Est GFR ( Amer) 110.6 ml/min Est GFR (Non-Af Amer) 95.4 ml/min BUN/Creatinine Ratio 84.3 H (10-20) Glucose 80 (70-99(Fasting)) mg/dl Calcium 8.7 (8.5-10.1) mg/dl Phosphorus 3.2 (2.5-4.9) mg/dl Magnesium 1.7 (1.7-2.4) mg/dl TSH 0.932 (0.300-4.500) uIu/ml PG Care Time/CCT Total # of Minutes Spent Total Time Spent with Patient: Total time spent is greater than 50% in coordination of care (as documented) at patient's floor/unit and/or counseling patient: Coding Level of Care Code 89660 SUB INP/OBS CARE 2/35MIN Diagnoses Myositis M60.9 Acute respiratory failure with hypoxia J96.01 Bilateral pneumonia J18.9 Dermatomyositis with respiratory involvement M33.91 Breast cancer C50.912 Breast location: unspecified site of breast Estrogen receptor status: unspecified Patient sex: female Laterality: left Severe protein-calorie malnutrition E43 Hypertension I10 Hypertension type: primary hypertension Hyponatremia E87.1 Chronic obstructive pulmonary disease J44.9 Acute metabolic encephalopathy G93.41 Dysphagia R13.10 Diarrhea R19.7 Insomnia G47.00 Anemia D64.9 (1) Breast cancer Breast location: unspecified site of breast Estrogen receptor status: unspecified Patient sex: female Laterality: left Qualified Code(s): C50.912 - Malignant neoplasm of unspecified site of left female breast (2) Hypertension Hypertension type: primary hypertension Qualified Code(s): I10 - Essential (primary) hypertension
[2022-10-08] MEDS: MIRTAZAPINE SOLTAB 15 MG PO SCH (20:47)
[2022-10-09] MEDS: ACETAMINOPHEN 325 MG TAB PEG PRN (02:57)
[2022-10-09] MEDS: PEPTAMEN 1.5 CAL 1,000 ML BAG PEG SCH (06:01)
[2022-10-09] MEDS: LANSOPRAZOLE 30 MG SOLTAB PEG SCH ×2 (06:01→23:09)
[2022-10-09] MEDS: TUBE FEEDING WATER FLUSH PEG SCH ×4 (06:01→23:10)
[2022-10-09] MEDS: clonazePAM 0.25 MG TAB GT PRN ×2 (07:30→20:55)
[2022-10-09] MEDS: predniSONE 10 MG TABLET PEG SCH (07:30)
[2022-10-09] MEDS: CYANOCOBALAMIN (B-12) 500 MCG TABLET PEG SCH (07:31)
[2022-10-09] MEDS: busPIRone 5 MG TAB PEG SCH ×3 (07:31→20:52)
[2022-10-09] MEDS: DULoxetine HCL 30 MG CAP PO SCH (07:32)
[2022-10-09] MEDS: METOPROLOL TARTRATE 25 MG TAB PO SCH ×2 (07:32→20:52)
[2022-10-09] MEDS: ENOXAPARIN INJ 30 MG/0.3 ML SYR SQ SCH (07:33)
[2022-10-09] MEDS: guaiFENesin SUGAR FREE 100 MG/5 ML UDC GT SCH ×4 (07:33→20:53)
[2022-10-09] MEDS: LOPERAMIDE LIQUID 120 ML BOTTLE PEG SCH ×4 (07:33→20:54)
[2022-10-09] MEDS: DIPHENOXYLATE/ATROPINE 2.5/0.025MG 5ML PEG SCH ×2 (07:33→20:53)
[2022-10-09] MEDS: MULTI VIT W/MINERALS LIQUID 15 ML UDP PEG SCH (07:35)
[2022-10-09] MEDS: IMMUN GLOBG(IGG)/MALT/IGA OV50 200 ML IV SCH (09:17)
--- NOTE | 2022-10-09 19:31 | Hospitalist Progress Note ---
Date of Service October 09, 2022 Assessment & Plan (1) Myositis: Plan: During her 06/2022 to 07/2022 prolonged hospitalization she underwent an extensive work-up looking for her b/l LE weakness and back pain. Most of her weakness was of the hip girdle muscles. She underwent MRIs of the spine along with extensive blood work. She was on empiric steroids (Dexamethasone) at that time. CPK was mildly elevated but aldolase was wnl. CRP was 0. She was evaluated by [facility] during the prior hospitalization. Her LE weakness gradually improved during that hospital stay and she was walking nearly 100 feet by time of discharge. Studies for myasthenia gravis, autoimmune disease (SUE, etc), and other neurological conditions were dispatched. She had f/u with [facility] shortly after discharge. EMGs of all 4 limbs were being planned. Her weakness progressed over July into August; she ultimately was readmitted on 09/02/22. MRIs of b/l thighs showed significant inflammation of the thigh muscles. She underwent a right thigh muscle bx on 09/06/22 by general surgery; results most c/w dermatomyositis. 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 This is c/w dermatomyositis. Dysphagia is due to her dermatomyositis. Therapies for her DM while here: * Solumedrol 125mg IV BID -- Completed 6 days of such. * Was briefly on prednisone; back to once daily solumedrol; now back to PO prednisone 09/23/22. Completed 2 weeks of 50mg; now on 40mg - and so forth; day #2 of 40mg dose. * Completed IVIG x 5 days in August 2022; now on day #2 of 3 of repeat IVIG Increased PPI to twice daily dosing for GI prophy while on high-dose steroids. The Dermatomyositis is concerning in that this would suggest ongoing breast ca / recurrence despite previous chemo, L mastectomy, etc. Recent CT chest/abd/pelvis did not show obvious recurrence or metastatic disease although there is thickening of the left chest wall in vicinity of prior mastectomy. Recent bone scan was negative for skeletal mets. Prognosis remains guarded. Appreciate Dr Jackson, rheum consult. She will f/u with him shortly after d/c. Appreciate Dr Cobb consult. Will inform Dr Morgan of [place]anch[place]uis's upcoming d/c. (2) Acute respiratory failure with hypoxia: Plan: resolved 2nd to aspiration pneumonia b/l had 10+ days of IV broad-spectrum abx continue NPO status (3) Bilateral pneumonia: Plan: b/l lower lobe. 2nd aspiration. resolved. (4) Dermatomyositis with respiratory involvement: Plan: see #1 above cause of progressive prox muscle weakness, dysphagia, rash, etc. rash component has resolved weakness modestly better in comparison to several weeks ago unfortunately dysphagia remains based on most recent video swallow (09/24/22) Dr Jackson's consult earlier this stay much appreciated (5) Breast cancer: Plan: left sided stage 3 at diagnosis s/p chemo/XRT last spring/summer, followed by mastectomy 06/[address]arias extensive CT imaging and bone scan without obvious recurrence/mets although most recent CT chest with "thickening" of left chest wall noted see discussion above in #1 (6) Severe protein-calorie malnutrition: Plan: ongoing, present since spring 2021 in the setting of newly diagnosed breast ca and neoadjuvant chemo/radiation during that time period. s/p PEG tube placement 01/2022. cont peptamen 1.5 60cc/hr during daylight hours. 60cc/hr is goal rate. 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 baseline Na level about 130 Na levels remain stable and acceptable repeat BMP in am consider salt supplementation 1gm daily (9) Chronic obstructive pulmonary disease: Plan: stable duonebs and saline nebs prn O2 sats wnl lungs clear guaifenesin 100mg via PEG QID to help with mucous see #1 above (10) Acute metabolic encephalopathy: Plan: resolved (11) Dysphagia: Plan: 2nd to oropharyngeal involvement from dermatomyositis see above re: steroids, IVIG, etc strict NPO unless she decides to transition to comfort care - at that time would liberalize her PO intake recent video swallow test results reviewed (12) DVT prophylaxis: Plan: lovenox 30mg daily (13) Hypomagnesemia: Plan: repleted resolved (14) Candidiasis of mouth and esophagus: Plan: may need to resume the nystatin swish given appearance of tongue today (15) Volume overload: Plan: earlier in the admission -- resolved (16) Diarrhea: Plan: multiple c. diff tests negative 2nd to tube feedings, altered bowel enma in midst of recent broad-spectrum antibiotics, etc increase loperamide 2mg QID via PEG Plan updated pt's daughter extensively by phone this evening cont PT/OT as tolerated but rehab potential is very poor anemia - Fe studies most c/w ACD insomnia, adjustment issues, depression -- cont remeron 7.5mg HS dispo planning - SNF - likely d/c tomorrow after IVIG is complete Admission and Anticipated Discharge Date Admission Date: September 02, 2022 Subjective no new issues overnight tolerating tube feedings tolerating IVIG excited - yet nervous - about transferring to rehab spirits are doing ok sleeping fine Review of Systems Review of Systems: gen - no fevers cv - no orthopnea pulm - no dyspnea; minimal cough GI - no pain Physical Exam Physical Exam: gen - no distress, cachectic, NAD; speech mildly dysarthric but improved from 1 week ago neck - no JVD mouth - MMM, tongue with white coating but buccal mucosa is wnl heart - RRR, s1 s2, no murmur lungs - CTA b/l; decreased breath sounds bases (mild) chest - a-port clean abd - soft NT ND BS+, PEG tube site clean and without drainage ext - no edema, pulses 2+ b/l psych - a/o x 3 musculo - diffuse muscle wasting all limbs rash - no recurrent rash on face/neck/chest/dorsum hands neuro - prox muscle weakness of arms/hips modestly better than last visit Results & Data Results & Data ([facility]) Vital Signs (Past 12 Hours) Vital Signs Temp Pulse Resp BP Pulse Ox O2 Del Method 10/09/22 14:49 36.7 C 86 18 97/62 L 95 Room Air 10/09/22 07:39 36.9 C 78 18 123/72 95 Room Air PG Care Time/CCT Total # of Minutes Spent Total Time Spent with Patient: Total time spent is greater than 50% in coordination of care (as documented) at patient's floor/unit and/or counseling patient: Coding Level of Care Code 95989 SUB INP/OBS CARE 2/35MIN Diagnoses Myositis M60.9 Acute respiratory failure with hypoxia J96.01 Bilateral pneumonia J18.9 Dermatomyositis with respiratory involvement M33.91 Breast cancer C50.912 Breast location: unspecified site of breast Estrogen receptor status: unspecified Patient sex: female Laterality: left Severe protein-calorie malnutrition E43 Hypertension I10 Hypertension type: primary hypertension Hyponatremia E87.1 Chronic obstructive pulmonary disease J44.9 Acute metabolic encephalopathy G93.41 Dysphagia R13.10 DVT prophylaxis Z29.9 Hypomagnesemia E83.42 Candidiasis of mouth and esophagus B37.81; B37.0 Volume overload E87.70 Diarrhea R19.7 (1) Breast cancer Breast location: unspecified site of breast Estrogen receptor status: unspecified Patient sex: female Laterality: left Qualified Code(s): C50.912 - Malignant neoplasm of unspecified site of left female breast (2) Hypertension Hypertension type: primary hypertension Qualified Code(s): I10 - Essential (primary) hypertension
[2022-10-09] MEDS: MIRTAZAPINE SOLTAB 15 MG PO SCH (20:52)
[2022-10-10] MEDS: ACETAMINOPHEN 325 MG TAB PEG PRN ×2 (01:08→09:34)
[2022-10-10] MEDS: LANSOPRAZOLE 30 MG SOLTAB PEG SCH (05:21)
[2022-10-10] MEDS: clonazePAM 0.25 MG TAB GT PRN (05:21)
[2022-10-10] MEDS: IMMUN GLOBG(IGG)/MALT/IGA OV50 200 ML IV SCH (05:57)
[2022-10-10] MEDS: TUBE FEEDING WATER FLUSH PEG SCH ×2 (05:58→12:03)
[2022-10-10] MEDS: PEPTAMEN 1.5 CAL 1,000 ML BAG PEG SCH (05:58)
[2022-10-10] MEDS: HEPARIN 100 UNIT/ML 5ML FLUSH FLUSH PRN ×2 (06:03→12:21)
[2022-10-10 06:57] LABS: Calcium 8.5 mg/dl (8.5-10.1); Potassium 4.5 mmol/L (3.5-5.1)
[2022-10-10 07:02] LABS: BUN Creatinine Ratio 73.6 (10-20); Est GFR (African American) 109.2 ml/min; Est GFR (Non-African American) 94.2 ml/min
[2022-10-10 07:38] LABS: Hematocrit (blood only) 26.6 % (34.1-44.9); Hemoglobin 8.7 g/dl (12.0-16.0); Mean Corpuscular Hemoglobin 32.7 pg (25.0-34.0); Mean Corpuscular Hgb Conc 32.7 g/dL (32.0-36.0); RDW Coefficient of Variation 17.3 % (11.5-14.5); RDW Standard Deviation 63.8 fL (36.4-46.3); Red Blood Count 2.66 M/uL (3.93-5.22); White Blood Count 6.37 K/ul (4.8-10.8)
[2022-10-10] MEDS: guaiFENesin SUGAR FREE 100 MG/5 ML UDC GT SCH ×3 (09:34→16:06)
[2022-10-10] MEDS: busPIRone 5 MG TAB PEG SCH ×2 (09:35→13:06)
[2022-10-10] MEDS: MULTI VIT W/MINERALS LIQUID 15 ML UDP PEG SCH (09:35)
[2022-10-10] MEDS: predniSONE 10 MG TABLET PEG SCH (09:36)
[2022-10-10] MEDS: CYANOCOBALAMIN (B-12) 500 MCG TABLET PEG SCH (09:36)
[2022-10-10] MEDS: DULoxetine HCL 30 MG CAP PO SCH (09:36)
[2022-10-10] MEDS: METOPROLOL TARTRATE 25 MG TAB PO SCH (09:37)
[2022-10-10] MEDS: ENOXAPARIN INJ 30 MG/0.3 ML SYR SQ SCH (09:38)
[2022-10-10] MEDS: LOPERAMIDE LIQUID 120 ML BOTTLE PEG SCH ×3 (09:43→16:06)
[2022-10-10] MEDS: ACETAMINOPHEN/HYDROcodone ELIX 15 ML/CUP PO PRN (10:31)
[2022-10-10] MEDS: DIPHENOXYLATE/ATROPINE 2.5/0.025MG 5ML PEG SCH (10:32)
[2022-10-10] MEDS ORDERED: SODIUM CHLORIDE 1 GM TABLET PO SCH (14:30)
--- NOTE | 2022-10-10 16:18 | Discharge Summary ---
Date of Service October 10, 2022 Admission HPI Per Admitting Provider The patient is a 71-year-old female with a past medical history including hypertension, B12 deficiency, SUE positive, Port-A-Cath placement, hyponatremia, CKD stage III, upper GI bleed, anemia, antineoplastic chemotherapy induced pancytopenia, metastatic breast cancer, and peripheral neuropathy. She has been having more more issues with ambulatory dysfunction since her last hospital admission from 07/20-08/03/2022. She has been a.m. unable to get can help that her daughter feels that she needs due to unavailability of resources. Today she became more short of breath, fatigue, and more difficulties ambulatory dysfunction, and had a pulse ox recorded in the low 80s in the outpatient setting Discharge Exam gen - no distress, cachectic, NAD; speech mildly dysarthric but improved from 1 week ago neck - no JVD mouth - MMM, tongue with white coating but buccal mucosa is wnl heart - RRR, s1 s2, no murmur lungs - CTA b/l; decreased breath sounds bases (mild) chest - a-port clean abd - soft NT ND BS+, PEG tube site clean and without drainage ext - no edema, pulses 2+ b/l psych - a/o x 3 musculo - diffuse muscle wasting all limbs rash - no recurrent rash on face/neck/chest/dorsum hands neuro - prox muscle weakness of arms/hips modestly better than last visit Discharge Data Allergies Allergy/AdvReac Type Severity Reaction Status Date / Time pistachio nut AdvReac Severe Red face Verified 09/02/22 21:15 and hands ~ Throwing up Consultations 09/02/22 21:25 ED Decision to Admit Stat 09/05/22 13:09 Consult General Surgery Routine 09/08/22 08:37 Consult Pulmonology Routine 09/11/22 21:02 Consult Rheumatology Routine 09/13/22 16:23 Consult Social Worker Assistant Routine 09/17/22 13:58 Consult Palliative Care Routine Procedures Performed Operation Date: 09/06/22 07:00 Actual Procedures p Right Quad Muscle Biopsy(Right) - Rohit Baumann MD, FACS Ordered Studies 09/02/22 20:03 CT head/brain wo con Stat 09/04/22 12:13 MR femur LT wo con Routine MR femur RT wo con Routine 09/07/22 13:50 CT Abd and Pelvis [CT abd pelvis oral and IV con] Stat CT angio chest PE protocol Stat 09/13/22 11:07 CTA chest w con [CT angio chest w con] Stat 09/13/22 11:11 US point of care ultrasound Urgent 09/24/22 13:00 FL video swallow Routine Hospital Course (1) Myositis: During her 06/2022 to 07/2022 prolonged hospitalization she underwent an extensive work-up looking for her b/l LE weakness and back pain. Most of her weakness was of the hip girdle muscles. She underwent MRIs of the spine along with extensive blood work. She was on empiric steroids (Dexamethasone) at that time. CPK was mildly elevated but aldolase was wnl. CRP was 0. She was evaluated by [facility] during the prior hospitalization. Her LE weakness gradually improved during that hospital stay and she was walking nearly 100 feet by time of discharge. Studies for myasthenia gravis, autoimmune disease (SUE, etc), and other neurological conditions were dispatched. She had f/u with [facility] shortly after discharge. EMGs of all 4 limbs were being planned. Her weakness progressed over July into August; she ultimately was readmitted on 09/02/22. MRIs of b/l thighs showed significant inflammation of the thigh muscles. She underwent a right thigh muscle bx on 09/06/22 by general surgery; results most c/w dermatomyositis. 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 This is c/w dermatomyositis. Dysphagia is due to her dermatomyositis. Therapies for her DM while here: * Solumedrol 125mg IV BID -- Completed 6 days of such. * Was briefly on prednisone; back to once daily solumedrol; now back to PO prednisone 09/23/22. Completed 2 weeks of 50mg; now on 40mg - and so forth; day #2 of 40mg dose. * Completed IVIG x 5 days in August 2022; now on day #2 of 3 of repeat IVIG Increased PPI to twice daily dosing for GI prophy while on high-dose steroids. The Dermatomyositis is concerning in that this would suggest ongoing breast ca / recurrence despite previous chemo, L mastectomy, etc. Recent CT chest/abd/pelvis did not show obvious recurrence or metastatic disease although there is thickening of the left chest wall in vicinity of prior mastectomy. Recent bone scan was negative for skeletal mets. Prognosis remains guarded. Appreciate Dr Jackosn, rheum consult. She will f/u with him shortly after d/c. Appreciate Dr Reza consult. Will inform Dr Morgan of Ms Benson's upcoming d/c. (2) Acute respiratory failure with hypoxia: resolved 2nd to aspiration pneumonia b/l had 10+ days of IV broad-spectrum abx continue NPO status (3) Bilateral pneumonia: b/l lower lobe. 2nd aspiration. resolved. (4) Dermatomyositis with respiratory involvement: see #1 above cause of progressive prox muscle weakness, dysphagia, rash, etc. rash component has resolved weakness modestly better in comparison to several weeks ago unfortunately dysphagia remains based on most recent video swallow (09/24/22) Dr Jackson's consult earlier this stay much appreciated (5) Breast cancer: left sided stage 3 at diagnosis s/p chemo/XRT last spring/summer, followed by mastectomy 06/[address] Zacarias extensive CT imaging and bone scan without obvious recurrence/mets although most recent CT chest with "thickening" of left chest wall noted see discussion above in #1 (6) Severe protein-calorie malnutrition: ongoing, present since spring 2021 in the setting of newly diagnosed breast ca and neoadjuvant chemo/radiation during that time period. s/p PEG tube placement 01/2022. cont peptamen 1.5 60cc/hr during daylight hours. 60cc/hr is goal rate. 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 baseline Na level about 130 Na levels remain stable and acceptable repeat BMP in am consider salt supplementation 1gm daily (9) Chronic obstructive pulmonary disease: stable duonebs and saline nebs prn O2 sats wnl lungs clear guaifenesin 100mg via PEG QID to help with mucous see #1 above (10) Acute metabolic encephalopathy: resolved (11) Dysphagia: 2nd to oropharyngeal involvement from dermatomyositis see above re: steroids, IVIG, etc strict NPO unless she decides to transition to comfort care - at that time would liberalize her PO intake recent video swallow test results reviewed (12) DVT prophylaxis: lovenox 30mg daily (13) Hypomagnesemia: repleted resolved (14) Candidiasis of mouth and esophagus: may need to resume the nystatin swish given appearance of tongue today (15) Volume overload: earlier in the admission -- resolved (16) Diarrhea: multiple c. diff tests negative 2nd to tube feedings, altered bowel enma in midst of recent broad-spectrum antibiotics, etc increase loperamide 2mg QID via PEG Plan updated pt's daughter extensively by phone this evening cont PT/OT as tolerated but rehab potential is very poor anemia - Fe studies most c/w ACD insomnia, adjustment issues, depression -- cont remeron 7.5mg HS dispo planning - SNF - likely d/c tomorrow after IVIG is complete Discharge Plan Discharge Items Patient Disposition: Transfer [facility] Reason For Visit: ACUTE RESP FAILURE WITH HYPOXIA, PNEUMONIA Discharge Diagnosis: 1. Dermatomyositis - due to breast cancer; dermatomyositis to be followed by Dr Andrew Jackson 14. 2. Severe failure to thrive/severe protein calorie malnutrition due to #1 3. Left-sided breast cancer s/p mastectomy 06/2022 (Dr Ruthann Zacarias) 4. Severe dysphagia due to dermatomyositis 5. Thrush 6. Acute hypoxic respiratory failure due to aspiration pneumonia - resolved 7. Hypertension 8. Depression 9. Anxiety 10. Chronic low back pain - due to DJD of lumbar spine +/- dermatomyositis 11. Hyponatremia - likely SIADH from breast cancer 12. CKD stage 3 13. Suspected COPD (never confirmed with PFTs) 14. Chronic anemia 15. s/p right thigh muscle biopsy by Dr Baumann confirming dermatomyositis Activity: Resume your previous activity Non-emergency contact: Primary Care Provider, Specialist and Oncologist Call non-emergency contact if: you have any medication questions, your symptoms worsen and your pain is not controlled Follow-up/Referrals: Laurel Dougherty MD [Primary Care Provider] - Arnel Jackson DO [Physician] - (1-2 weeks for dermatomyositis ) Kika Morgan MD [Physician] - (1-2 weeks to discuss ongoing breast cancer care ) Diet: Nothing by Mouth and Other - See Diet Comment Diet Comment: Peptamen 1.5, 65cc/hr x 15 hrs ([id number]); Free water flushes 50cc QID. Addtl Attending Provider Instructions: 1. Patient is strict NPO status EXCEPT for occasional ice chips and occasional sips of water only. HIGH RISK OF ASPIRATION due to severe dysphagia. 2. CBC, BMP, and magnesium level in 3-4 days for stability. 3. PEG tube feedings as noted. 4. PT, OT, Speech therapies for severe proximal muscle weakness & dysphagia. 5. Psychology / counseling consult, if available. 6. Follow-up appointments as listed in separate section. Pending Studies at Discharge: No Stand-Alone Forms: My [facility] Skilled Items Patient informed of condition?: Yes DNR: Yes Discharge Level of Care: Skilled Communicable Disease: No Discharge Prognosis: Other Lines: None Urinary Catheter: No Medications and DC Order Prescriptions: New buspirone 5 mg Tablet 7.5 mg PEG TID Qty: 120 0RF clonazepam 0.5 mg Tablet 0.25 mg G-tube BID PRN (Reason: anxiety) Qty: 30 0RF metoprolol tartrate 25 mg Tablet 25 mg feeding tube BID Qty: 60 0RF hydrocodone-acetaminophen 7.5-325 mg/15 mL Solution 10 ml PO Q6H PRN (Reason: pain) Qty: 200 0RF mirtazapine 15 mg Tablet,Disintegrating 7.5 mg feeding tube HS Qty: 30 0RF diphenoxylate-atropine 2.5-0.025 mg/5 mL Liquid 5 ml PEG BID PRN (Reason: diarrhea) Qty: 60 0RF loperamide [Imodium A-D] 1 mg/7.5 mL Liquid 2 mg PEG TID Qty: 120 0RF melatonin 3 mg Tablet 3 mg PO HS PRN (Reason: sleep) Qty: 30 0RF sodium chloride 1,000 mg Tablet,Soluble 1,000 mg feeding tube DAILY Qty: 30 0RF prednisone 10 mg Tablet 10 mg PEG DIRECTED Qty: 100 0RF Rx Instructions: starting 10/11/22: 40mg via PEG daily x 11 days, then 30mg via PEG daily x 14 days, then 20mg via PEG daily x 14 days, then 10mg via PEG daily. Further instructions to follow from Dr Andrew Jackson, rheumatology at [facility]. Centrum 9 mg iron/15 mL Liquid 15 ml PEG QAM Qty: 236 0RF guaifenesin 100 mg/5 mL Liquid 100 mg G-tube QID PRN (Reason: cough) Qty: 500 0RF Tube Feeding Water Flush 50 ml PEG QID Qty: 1000 1RF nystatin 100,000 unit/mL suspension 5 ml PO QID 7 Days Qty: 140 0RF Rx Instructions: swish and spit OR use a swab stick to paint the solution on the tongue. Continued cyanocobalamin (vitamin B-12) 500 mcg Tablet 1,000 mcg PEG QAM Qty: 30 2RF Rx Instructions: purchase [id number] albuterol sulfate 90 mcg/actuation HFA aerosol inhaler 2 inh inhalation QID PRN (Reason: shortness of breath or wheezing or cough) Qty: 8.5 1RF acetaminophen [Tylenol] 325 mg Tablet 650 mg feeding tube BID ondansetron HCl 8 mg tablet 8 mg feeding tube Q8H PRN (Reason: NAUSEA/VOMITING) magnesium oxide 400 mg magnesium tablet 400 mg feeding tube BID Changed polyethylene glycol 3350 [Miralax] 17 gram/dose powder 17 g feeding tube DAILY PRN (Reason: Constipation) Qty: 1 0RF gabapentin 300 mg capsule 100 mg feeding tube TID Qty: 90 0RF Peptamen 1.5 0.068 gram- 1.5 kcal/mL Liquid 1,000 ml G-tube DAILY@0600 Qty: 1000 0RF Rx Instructions: Peptamen 1.5; 65cc/hr x 15 hours from 0600 to 2100 daily via PEG. Free Water Flushes via PEG - 50cc QID. duloxetine 30 mg capsule,delayed release(DR/EC) 30 mg PO DAILY Qty: 30 0RF Rx Instructions: VIA FEEDING TUBE. lansoprazole 15 mg Tablet,Disintegrat, Delay Rel 30 mg feeding tube BID Qty: 60 0RF Discontinued tramadol 50 mg tablet 50 mg feeding tube Q6H PRN (Reason: Pain) levofloxacin 500 mg tablet 500 mg feeding tube QPM Rx Instructions: STARTED 08/27/22 FOR 7 DAYS. NEEDS LAST DOSE OF COURSE. oxycodone 5 mg tablet 5 mg feeding tube .Q4-6HR PRN (Reason: Pain) Discharge Orders: Discharge Order (Routine); Ordered 10/10/22 Ordered By: Se Hernandez Admission Data Admit Date/Time: 09/02/22 22:07 Attending Provider: Se Hernandez Admit Provider: Feliberto Kilpatrick Primary Care Provider: Laurel Dougherty Other Providers: Kika Morgan ; [facility] ; [facility] ; Feliberto Kilpatrick ; Rohit aBumann ; Arnel Dubon ; Arnel Jackson ; Robel Lyles ; Chelsie Cobb Coding Diagnoses Myositis M60.9 Acute respiratory failure with hypoxia J96.01 Bilateral pneumonia J18.9 Dermatomyositis with respiratory involvement M33.91 Breast cancer C50.912 Breast location: unspecified site of breast Estrogen receptor status: unspecified Patient sex: female Laterality: left Severe protein-calorie malnutrition E43 Hypertension I10 Hypertension type: primary hypertension Hyponatremia E87.1 Chronic obstructive pulmonary disease J44.9 Acute metabolic encephalopathy G93.41 Dysphagia R13.10 DVT prophylaxis Z29.9 Hypomagnesemia E83.42 Candidiasis of mouth and esophagus B37.81; B37.0 Volume overload E87.70 Diarrhea R19.7
== END 2022-10-10 17:00 | DRG 987 ==
LOC: ED 19:24 → SUATTDRO 22:07 → EDINP 22:07 → 2N 09-03 01:36 → 2W 09-08 18:25 → 3N 09-13 05:28 → 2S 09-13 16:37 → 3E 09-28 18:57